=== PATIENT | male | born 1950 | race Caucasian/White ===

== ENCOUNTER → 2017-12-07 08:42 | Outpatient (CLI) | payer MEDICARE, OTHER, SELFPAY ==
[2017-12-07 10:50] LABS: ALB/GLOB Ratio 1.2 RATIO (0.9-2.4); AST(SGOT) 27 U/L (15-37); Alanine Aminotransfer ALT/SGPT 40 U/L (16-61); Alkaline Phosphatase 43 U/L (45-117); Anion Gap 10 (5-15); BUN 17 mg/dL (7-18); BUN/Creat Ratio 17.6 RATIO (10-20); Calcium,Total 8.9 mg/dL (8.5-10.1); Chloride 107 mmol/L (98-107); Cholesterol 184 mg/dL (200); Creatinine, Serum 0.97 mg/dL (0.70-1.30); EST Glomerular Filtration Rate 82 mL/min (>60); Est Glom Filt Rate - Afr Amer 99 mL/min (>60); Globulin 3.4 g/dL (2.2-4.2); Glucose 119 mg/dL (74-106); High Density Lipoprotein 45 mg/dL; Potassium 4.2 mmol/L (3.5-5.1); Protein, Total 7.4 g/dL (6.4-8.2); Sodium Level 140 mmol/L (136-145); Thyroid Stim Hormone (TSH) 1.71 uIU/mL (0.358-3.74); Triglycerides 165 mg/dL; Very Low Density Lipoprotein 33 mg/dL (5-40)
== END ==
PROVIDERS: Family Provider Family Medicine; PCP Family Medicine; Visit Provider Family Medicine
DX: E11.9 Type 2 diabetes mellitus without complications (principal)
CPT/HCPCS: 36415; 80053; 80061; 84443

== ENCOUNTER → 2018-06-05 09:17 | Outpatient (CLI) | payer MEDICARE, OTHER, SELFPAY ==
[2018-05-22 15:33] VITALS: BMI 29.2
--- NOTE | 2018-06-05 09:20 | STE_ITS ---
Reason For Study: CAD/ASHD Stress Results Protocol: Dobutamine Stress Echocardiogram Maximum Predicted HR: 150 bpm Target HR: 128 bpm % Maximum Predicted HR: 93 % DurationHeart Rate Stage (mm:ss) (bpm) BP BASELINE 57 142/78 GRAHAM PROTOCOL- STAGE 1 3:00 94 140/80 GRAHAM PROTOCOL- STAGE 2 3:00 116 150/80 GRAHAM PROTOCOL- STAGE 3 3:00 130 168/90 GRAHAM PROTOCOL- STAGE 4 1:00 139 / RECOVERY 76 142/84 Stress Duration: 10:00 mm:ss Maximum Stress HR: 139 bpm Baseline Echocardiogram Findings The estimated ejection fraction is 65 %. Stress Echo Wall motion Data Resting WM Intermediate WM Stress WM Resting Wall Motion Wall Motion Stress No regional wall motion No regional wall motion abnormalities noted. abnormalities noted. EKG Data The baseline ECG displays normal sinus rhythm. The patient exercised according to the regular Graham protocol for a total duration of 10:00. The maximum heart rate attained was 139 beats per minute. This was 92% of maximum predicted heart rate. The patient exercised into stage 4 of the Graham protocol. During stress, there were no ST or T wave changes noted to suggest ischemia. No clinical angina was noted. Interpretation Summary The estimated ejection fraction is 65 %. Normal, adequate, treadmill echocardiogram. Negative for ischemia by EKG and echocardiographic criteria. No anginal symptoms noted. No arrhythmias noted. Appropriate blood pressure response to exercise. Average exercise capacity for age. Final LVEF is 75%. Test terminated due to target heart rate achieved. No complications. Ordering Physician: Demetri Patrick Referring Physician: Demetri Patrick Performed By: Don Bourgeois RCS
== END ==
PROVIDERS: Family Provider Family Medicine; PCP Family Medicine; Referring Provider Internal Medicine Cardiovascular Disease; Visit Provider Internal Medicine Cardiovascular Disease
DX: E78.5 Hyperlipidemia, unspecified (principal); I10 Essential (primary) hypertension; I25.10 Atherosclerotic heart disease of native coronary artery without angina pectoris; I25.2 Old myocardial infarction; Z95.5 Presence of coronary angioplasty implant and graft
CPT/HCPCS: 93017; 93350

== ENCOUNTER 2019-06-24 09:00 | Outpatient (RCR) | payer MEDICARE, OTHER, SELFPAY ==
[2018-12-27 16:03] VITALS: BMI 26.4
--- NOTE | 2019-04-01 14:29 | HP.PTEVAL_ITS ---
Patient's Visit Information MARIA E GUTHRIE is a 68 year old M referred to Physical Therapy by Seven Vo DO with a diagnosis of L TKA. Date of Evaluation: 03/22/19 Physical Therapist: Cesar Holloway DPT - Visit Plan Frequency: 3x /Week Duration: 4-6 Weeks Plan: Start with ROM, focus on gaining TKE and atleast 120deg of flexion. May add in gentle strengthening, but due to history of difficulty gaining ROM, must focus on this. Instruct patient in progression of CPM by 5 deg daily. - Subjective Findings: Pt. is here today for his initial evaluation S/P L TKA. DOS: 03/20/19. Pt. arrives today with FWW. 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 Pt. reports having to have a GARY after his last surgery. Pt. reports he is taking pain medication as prescribed. He has not started any exercises, but reprots using his CPM. Pt. is currently at 0-0-70deg on his CPM. Pt. reports using 4 hours daily. Pt. is to see physician in 3 weeks. Pt. denies N/T. Pt. has aquacell bandage on currently. He is to contact physican about when to remove. He enjoys gardening, working outside and walking. Pt. is hopeful to resume all of these activities without limitations. - Pain Left Knee Pain Intensity (Out of 10): Unrated Pain Intensity Range: 4, 9 - Objective POSTURE: Pt. lacks TKE in stance. Pt. has increased R sided wt. shift. Pt. is able to sit at edge of the bed without increase in symptoms. PALPATION: Pt. has nor signs of infection. Pt. does have aquacell bandage on and is to leave on until next week. Pt. has negative homans sign. NEURO: normal sensation noted througout BLEs. ROM: R knee 0-0-118deg. L knee 0-10-90deg. Pt. has icnreased pain at end ranges of motion, empty end feel noted. MMT: LLE- ankle 5/5 throughout; knee- ext 3-/5, fleixon 3/5; hip- flexion 3-/5, abd 3/5; ext 3/5. GAIT: Pt. ambulates with FWW, but lacks TKE on LLE during stance phase. Pt. has minimal swing phase as well. STAIRS: step to pattern noted. use of BHR (heavy use). - Goals Goal 1:: Pt. to be I with HEP. Goal Time Frame: 4-6 Weeks Goal 2:: Pt. to have increaed L knee ROM to 0-0-120deg. Goal Time Frame: 4-6 Weeks Goal 3:: Pt. to ambulate with LRD with normal pattern with 0-1/10 pain in L knee Goal Time Frame: 4-6 Weeks Goal 4:: Pt. to sleep throughout the night with 0-1/10 pain in L knee. Goal Time Frame: 4-6 Weeks Goal 5:: Pt. to have increased strength of LLE by 1/2 grade of all effected musculature. Goal Time Frame: 4-6 Weeks - Rehabilitation Potential Physical Therapy Diagnosis: Pt. has has signs and symptoms consistent with L TKA. Pt. has subsequent hypomobility, increased pain, weakness and difficulty with gait. Pt. would benefit from PT to address above limitations progressing back to all functional mobility. Rehabilitation Potential: Excellent - Anticipated Interventions Patient/Client Instruction: Educate patient on: Condition, Plan of Care, Risk Factors, Benefits of Fitness Program For the Purpose of:: To foster healthy habits, To improve decision making, To facilitate caregiver knowledge, To improve self management, To prevent re- injury, To improve ability to perform tasks related to life management, To improve tolerance to ADL's Therapeutic Exercise to Include: Strength training, Power training, Postural training, Flexibilty training, Passive ROM, Active ROM For the Purpose of:: To decrease pain, To decrease swelling/inflammation, To increase ROM, To increase oxygenation perfusion, To improve muscle performance and motor function, To decrease level of supervision to perform tasks, To improve ability of physical actions for home/community/work/leisure, To improve gait and locomotor functions, To improve health of tissue, To decrease soft tissue restriction, To increase flexibility/ROM, To improve balance Manual Therapy Techniques to Include: Mobilization, Passive ROM, Soft tissue mobilization For the Purpose of:: To decrease pain, To increase ROM, To improve nutrient delivery to tissue, To increase oxygenation perfusion, To improve muscle performance and motor function Thank you for the opportunity to evaluate your patient. For Medicare and Medicare HMO plans, please review the plan of care and approve it. It will need to be FAXED BACK to us at [phone] for Medicare purposes. For Medicare only, by signing this I certify the plan of care. Please let me know if there are questions or concerns regarding this plan of car e. Physician Signature: Date:
--- NOTE | 2019-04-11 11:18 | HP.PTREVAL_ITS ---
Seven Vo, DO, It has been my pleasure to treat MARIA E GUTHRIE over the last 9 visits for L TKA. Please see the progress note below for an update on the physical therapy plan of care! Subjective: Pt. reports doing okay. He reports being on CPM 6 hours per day set at 5-0-110deg. Pt. reports having 4/10 pain pre treatment. He arrived today usi ng single point cane. Objective/Function: AROM: 0-10-90deg, PROM 0-6-94deg. MMT 4/5 throughout. GAIT: Pt. arrived walke with SPC. PT. lacks TKE in stance and has decreased knee flexion during swing phase. Pt. has improvement with VCing. PT. is able to negotiate 6 steps with BUE use. I disscussed with him about consistent stretching at home. Pt. agrees. I want him stretch 3-5 times per day, pt. reports understanding. Plan Plan: Cont with POC, focus on end range stretching both directions and functional mobility. Progress gait with SPC. Goals Goal 1:: Pt. to be I with HEP. Goal Time Frame: 4-6 Weeks Goal Progress: Progressing Goal 2:: Pt. to have increaed L knee ROM to 0-0-120deg. Goal Time Frame: 4-6 Weeks Goal Progress: Progressing Goal 3:: Pt. to ambulate with LRD with normal pattern with 0-1/10 pain in L knee Goal Time Frame: 4-6 Weeks Goal Progress: Progressing Goal 4:: Pt. to sleep throughout the night with 0-1/10 pain in L knee. Goal Time Frame: 4-6 Weeks Goal Progress: Progressing Goal 5:: Pt. to have increased strength of LLE by 1/2 grade of all effected musculature. Goal Time Frame: 4-6 Weeks Goal Progress: Progressing Anticipated Interventions Patient/Client Instruction: Educate patient on: Condition, Plan of Care, Risk Factors, Benefits of Fitness Program For the Purpose of:: To foster healthy habits, To improve decision making, To facilitate caregiver knowledge, To improve self management, To prevent re- injury, To improve ability to perform tasks related to life management, To improve tolerance to ADL's Therapeutic Exercise to Include: Strength training, Power training, Postural training, Flexibilty training, Passive ROM, Active ROM For the Purpose of:: To decrease pain, To decrease swelling/inflammation, To increase ROM, To increase oxygenation perfusion, To improve muscle performance and motor function, To decrease level of supervision to perform tasks, To improve ability of physical actions for home/community/work/leisure, To improve gait and locomotor functions, To improve health of tissue, To decrease soft tissue restriction, To increase flexibility/ROM, To improve balance Manual Therapy Techniques to Include: Mobilization, Passive ROM, Soft tissue mobilization For the Purpose of:: To decrease pain, To increase ROM, To improve nutrient delivery to tissue, To increase oxygenation perfusion, To improve muscle performance and motor function Please do not hesitate to contact me at [phone] by phone or if you have questions or concerns regarding this new plan of care! Sincerely, ESTRADA WilliamT
--- NOTE | 2019-05-01 10:55 | HP.PTREVAL_ITS ---
Seven Vo, DO, It has been my pleasure to treat MARIA E GUTHRIE over the last 16 visits for L TKA. Please see the progress note below for an update on the physical therapy plan of care! Subjective: Pt. reports I am doing okay today. He reports I have resigned myself to getting a manipulation.' Pt. reports having less pain today, but is s till having trouble bending his knee. 2/10 pain pre treatment today. Objective/Function: Pt. contiunes to have increased pain in his L knee, marked edema in joint only. Pt. is able to walk with cane, but has limited knee flexion and lacks TKE. Pt. does not tolerate end ranges of motion stretching well. He complains of high levels of pain with both knee flexion and extension. ROM: 0-6-84 PROM, pt. did not tolerate higher levels of force with stretching. Pt. is able to ascend steps with 2 HR, but difficult with reciprocal pattern, unable to effectively descending with reciprocal pattern. I talked to him frequently about continued stretching at home, which he states that he is compliant. He was to be stretching continously throughout the day. Pt. is to follow up with physician next week. Plan Plan: Pt. really needs to work on more ROM. He needs to achieve TKE and further knee flexion. I instructed him on frequency and urgency to increase stretching/ROM. Goals Goal 1:: Pt. to be I with HEP. Goal Time Frame: 4-6 Weeks Goal Progress: Progressing Goal 2:: Pt. to have increaed L knee ROM to 0-0-120deg. Goal Time Frame: 4-6 Weeks Goal Progress: Not Progressing Goal 3:: Pt. to ambulate with LRD with normal pattern with 0-1/10 pain in L knee Goal Time Frame: 4-6 Weeks Goal Progress: Progressing Goal 4:: Pt. to sleep throughout the night with 0-1/10 pain in L knee. Goal Time Frame: 4-6 Weeks Goal Progress: Progressing Goal 5:: Pt. to have increased strength of LLE by 1/2 grade of all effected musculature. Goal Time Frame: 4-6 Weeks Goal Progress: Progressing Anticipated Interventions Patient/Client Instruction: Educate patient on: Condition, Plan of Care, Risk Factors, Benefits of Fitness Program For the Purpose of:: To foster healthy habits, To improve decision making, To facilitate caregiver knowledge, To improve self management, To prevent re- injury, To improve ability to perform tasks related to life management, To improve tolerance to ADL's Therapeutic Exercise to Include: Strength training, Power training, Postural training, Flexibilty training, Passive ROM, Active ROM For the Purpose of:: To decrease pain, To decrease swelling/inflammation, To increase ROM, To increase oxygenation perfusion, To improve muscle performance and motor function, To decrease level of supervision to perform tasks, To improve ability of physical actions for home/community/work/leisure, To improve gait and locomotor functions, To improve health of tissue, To decrease soft tissue restriction, To increase flexibility/ROM, To improve balance Manual Therapy Techniques to Include: Mobilization, Passive ROM, Soft tissue mobilization For the Purpose of:: To decrease pain, To increase ROM, To improve nutrient delivery to tissue, To increase oxygenation perfusion, To improve muscle performance and motor function Please do not hesitate to contact me at [phone] by phone or if you have questions or concerns regarding this new plan of care! Sincerely, Cesar Holloway DPT
--- NOTE | 2019-05-21 11:02 | HP.PTREVAL_ITS ---
Seven Vo, DO, It has been my pleasure to treat MARIA E GUTHRIE over the last 32 visits for L TKA. Please see the progress note below for an update on the physical therapy plan of care! Subjective: Pt. reports I was so sore yesterday. He reports calling his doctor who placed him on an alternate anti inflammatory to work on reducing scar tisue formation. He is also getting use of a new CPM. Pt. reports beign sore currently as well. Objective/Function: Pt. achieved 93deg of flexion today, Pt. has very painfull with attempted. I took him as far as he could tolerate. Pt. requested to stop at times. Pt. contiunes to have thick tissue surrounding his knee. Pt. reports high levels of pain at media joint line and lateral quad musculature. I talked to him about frequent aggressive stretching at home as well. Pt. cosnents. Pt. to add CPM to his routine once he gets it. Plan Plan: Cont. with POC, progress ROM Goals Goal 1:: Pt. to be I with HEP. Goal Time Frame: 4-6 Weeks Goal Progress: Progressing Goal 2:: Pt. to have increaed L knee ROM to 0-0-120deg. Goal Time Frame: 4-6 Weeks Goal Progress: Not Progressing Goal 3:: Pt. to ambulate with LRD with normal pattern with 0-1/10 pain in L knee Goal Time Frame: 4-6 Weeks Goal Progress: Progressing Goal 4:: Pt. to sleep throughout the night with 0-1/10 pain in L knee. Goal Time Frame: 4-6 Weeks Goal Progress: Progressing Goal 5:: Pt. to have increased strength of LLE by 1/2 grade of all effected musculature. Goal Time Frame: 4-6 Weeks Goal Progress: Progressing Anticipated Interventions Patient/Client Instruction: Educate patient on: Condition, Plan of Care, Risk Factors, Benefits of Fitness Program For the Purpose of:: To foster healthy habits, To improve decision making, To facilitate caregiver knowledge, To improve self management, To prevent re-injury, To improve ability to perform tasks related to life management, To improve tolerance to ADL's Therapeutic Exercise to Include: Strength training, Power training, Postural tra ining, Flexibilty training, Passive ROM, Active ROM For the Purpose of:: To decrease pain, To decrease swelling/inflammation, To increase ROM, To increase oxygenation perfusion, To improve muscle performance and motor function, To decrease level of supervision to perform tasks, To improve ability of physical actions for home/community/work/leisure, To improve gait and locomotor functions, To improve health of tissue, To decrease soft tissue restriction, To increase flexibility/ROM, To improve balance Manual Therapy Techniques to Include: Mobilization, Passive ROM, Soft tissue mobilization For the Purpose of:: To decrease pain, To increase ROM, To improve nutrient delivery to tissue, To increase oxygenation perfusion, To improve muscle performance and motor function Please do not hesitate to contact me at [phone] by phone or if you have questions or concerns regarding this new plan of care! Sincerely, Cesar Holloway DPT
--- NOTE | 2019-05-27 09:52 | HP.PTREVAL_ITS ---
Seven Vo, DO, It has been my pleasure to treat MARIA E GUTHRIE over the last 36 visits for L TKA. Please see the progress note below for an update on the physical therapy plan of care! Subjective: Pt. reports I am feeling a little better today, 05/27. Pt. reprots beign HEP compliant and on CPM 8-10 hours per day. Pt. feels like over the past few days he is doin gbetter, but still not where he should be. Objective/Function: ROM: seated 0-0-96deg very painful with flexion. Supine 0 deg of extension after frequent stretching. Pt. reports pain and tightness as limiting factor. Pt. reports being compliant, but still have a tough time with progressing ROM. Pt. is to see physician later this date. I talked to him about concerned about ROM. Pt. reprots understanding. Plan Plan: Cont. with POC, progress ROM Goals Goal 1:: Pt. to be I with HEP. Goal Time Frame: 4-6 Weeks Goal Progress: Progressing Goal 2:: Pt. to have increaed L knee ROM to 0-0-120deg. Goal Time Frame: 4-6 Weeks Goal Progress: Not Progressing Goal 3:: Pt. to ambulate with LRD with normal pattern with 0-1/10 pain in L knee Goal Time Frame: 4-6 Weeks Goal Progress: Progressing Goal 4:: Pt. to sleep throughout the night with 0-1/10 pain in L knee. Goal Time Frame: 4-6 Weeks Goal Progress: Progressing Goal 5:: Pt. to have increased strength of LLE by 1/2 grade of all effected musculature. Goal Time Frame: 4-6 Weeks Goal Progress: Progressing Anticipated Interventions Patient/Client Instruction: Educate patient on: Condition, Plan of Care, Risk Factors, Benefits of Fitness Program For the Purpose of:: To foster healthy habits, To improve decision making, To facilitate caregiver knowledge, To improve self management, To prevent re- injury, To improve ability to perform tasks related to life management, To improve tolerance to ADL's Therapeutic Exercise to Include: Strength training, Power training, Postural training, Flexibilty training, Passive ROM, Active ROM For the Purpose of:: To decrease pain, To decrease swelling/inflammation, To increase ROM, To increase oxygenation perfusion, To improve muscle performance and motor function, To decrease level of supervision to perform tasks, To improve ability of physical actions for home/community/work/leisure, To improve gait and locomotor functions, To improve health of tissue, To decrease soft tissue restriction, To increase flexibility/ROM, To improve balance Manual Therapy Techniques to Include: Mobilization, Passive ROM, Soft tissue mobilization For the Purpose of:: To decrease pain, To increase ROM, To improve nutrient delivery to tissue, To increase oxygenation perfusion, To improve muscle performance and motor function Please do not hesitate to contact me at [phone] by phone or if you have questions or concerns regarding this new plan of care! Sincerely, Cesar Holloway DPT
--- NOTE | 2019-06-10 09:21 | HP.PTREVAL_ITS ---
Seven Vo, DO, It has been my pleasure to treat MARIA E GUTHRIE over the last 40 visits for L TKA. Please see the progress note below for an update on the physical therapy plan of care! Subjective: Pt. reports I had a good stretch last time. Pt. reports I feel like I am slowly getting better. Pt. arrived today without cane. Pt. reports 1/ 10 pain and has gone off of his pain medications. Objective/Function: ROM: PROM- 0-0-101 deg. AROM 0-0-96deg. Pt. cotninues to have leather end feel, but is slwoly progressing. Much more tolerant of stretching in sitting. Pt. is sleeping better. Pt. contiunse to have increased pain. GAIT: Pt. has difficulty with TKE during stance phase,but is progressing. We have been working on increasing knee fleixon druing swing phase. STIARS: reciprocal pattern with BHR, but has difficulty with bending his L knee with lowering. Plan Plan: COnt. with PT focus knee flexon and maintainingh knee extension, progressing functional mobility as tolerated. FOCUS on aggressive knee flexion ROM. Goals Goal 1:: Pt. to be I with HEP. Goal Time Frame: 4-6 Weeks Goal Progress: Progressing Goal 2:: Pt. to have increaed L knee ROM to 0-0-120deg. Goal Time Frame: 4-6 Weeks Goal Progress: Progressing Goal 3:: Pt. to ambulate with LRD with normal pattern with 0-1/10 pain in L knee Goal Time Frame: 4-6 Weeks Goal Progress: Progressing Goal 4:: Pt. to sleep throughout the night with 0-1/10 pain in L knee. Goal Time Frame: 4-6 Weeks Goal Progress: Progressing Goal 5:: Pt. to have increased strength of LLE by 1/2 grade of all effected musculature. Goal Time Frame: 4-6 Weeks Goal Progress: Progressing Anticipated Interventions Patient/Client Instruction: Educate patient on: Condition, Plan of Care, Risk Factors, Benefits of Fitness Program For the Purpose of:: To foster healthy habits, To improve decision making, To facilitate caregiver knowledge, To improve self management, To prevent re- injury, To improve ability to perform tasks related to life management, To improve tolerance to ADL's Therapeutic Exercise to Include: Strength training, Power training, Postural training, Flexibilty training, Passive ROM, Active ROM For the Purpose of:: To decrease pain, To decrease swelling/inflammation, To increase ROM, To increase oxygenation perfusion, To improve muscle performance and motor function, To decrease level of supervision to perform tasks, To improve ability of physical actions for home/community/work/leisure, To improve gait and locomotor functions, To improve health of tissue, To decrease soft tissue restriction, To increase flexibility/ROM, To improve balance Manual Therapy Techniques to Include: Mobilization, Passive ROM, Soft tissue mobilization For the Purpose of:: To decrease pain, To increase ROM, To improve nutrient delivery to tissue, To increase oxygenation perfusion, To improve muscle performance and motor function Please do not hesitate to contact me at [phone] by phone or if you have questions or concerns regarding this new plan of care! Sincerely, ESTRADA WilliamT
--- NOTE | 2019-08-23 10:34 | HP.PTDCNRP_ITS ---
MARIA E GUTHRIE was seen in my office for initial evaluation on 03/22/19. The following Plan of Care was established for this patient: Initial Frequency: 3x /Week Initial Duration: 4-6 Weeks Patient/Client Instruction: Educate patient on: Condition, Plan of Care, Risk Factors, Benefits of Fitness Program For the Purpose of:: To foster healthy habits, To improve decision making, To facilitate caregiver knowledge, To improve self management, To prevent re- injury, To improve ability to perform tasks related to life management, To improve tolerance to ADL's Therapeutic Exercise to Include: Strength training, Power training, Postural training, Flexibilty training, Passive ROM, Active ROM For the Purpose of:: To decrease pain, To decrease swelling/inflammation, To increase ROM, To increase oxygenation perfusion, To improve muscle performance and motor function, To decrease level of supervision to perform tasks, To improve ability of physical actions for home/community/work/leisure, To improve gait and locomotor functions, To improve health of tissue, To decrease soft tissue restriction, To increase flexibility/ROM, To improve balance Manual Therapy Techniques to Include: Mobilization, Passive ROM, Soft tissue mobilization For the Purpose of:: To decrease pain, To increase ROM, To improve nutrient delivery to tissue, To increase oxygenation perfusion, To improve muscle performance and motor function This patient was last seen in our office 06/26/19. Pertinent comments regarding their Physical therapy will appear below: Pt. was seen post opt TKA. Pt. had a difficult time regaining his ROM. Pt. has worked very hard at returning. Pt. was to take a break from PT and follow up if needed. Pt. has not been seen in several weeks and willbe DC from PT at this point intime. At this point I will be discontinuing this patient from physical therapy. I would be happy to see this patient again in the future if found appropriate by the physician. Thank you! ESTRADA WilliamT
== END 2019-06-24 19:00 | disposition home or self-care (01) ==
LOC: PT 09:00
PROVIDERS: Family Provider Family Medicine; PCP Family Medicine; Referring Provider Orthopaedic Surgery; Visit Provider Orthopaedic Surgery
DX: M17.12 Unilateral primary osteoarthritis, left knee (principal); M21.162 Varus deformity, not elsewhere classified, left knee; M25.562 Pain in left knee; Z47.89 Encounter for other orthopedic aftercare; M24.662 Ankylosis, left knee
CPT/HCPCS: 97016; 97110; 97140; 97161; 97164

== ENCOUNTER → 2019-11-15 17:29 | Outpatient (CLI) | payer MEDICARE, OTHER, SELFPAY ==
[2019-06-27 14:41] VITALS: BMI 27.1
== END ==
PROVIDERS: PCP Family Medicine; Referring Provider Family Medicine; Visit Provider Family Medicine
DX: Z20.828 Contact with and (suspected) exposure to other viral communicable diseases (principal)
CPT/HCPCS: 87635; U0003

== ENCOUNTER → 2019-12-27 09:35 | Outpatient (CLI) | payer MEDICARE, OTHER, SELFPAY ==
[2019-06-27 14:41] VITALS: BMI 27.1
[2019-12-27 12:53] LABS: Hematocrit 50.2 % (40-54); Hemoglobin 16.3 g/dL (13.0-16.5); Mean Corp Hgb Conc 32.5 g/dL (32-36); Mean Corpuscular Hgb 28.8 pg (27.0-32.0); Mean Corpuscular Volume 88.8 fL (80-94); Mean Platelet Vol. 11.3 fl (6.2-12.0); Platelet Count 214 K/mm3 (150-450); RBC Distribution Width CV 13.4 % (11.6-14.6); RBC Distribution Width SD 43.2 fl (35.1-43.9); Red Blood Count 5.65 M/mm3 (4.6-6.2); White Blood Count 3.9 K/mm3 (4.4-11.0)
[2019-12-27 13:40] LABS: ALB/GLOB Ratio 1.3 RATIO (0.9-2.4); AST(SGOT) 22 U/L (15-37); Alanine Aminotransfer ALT/SGPT 28 U/L (16-61); Albumin, Serum 4.2 g/dL (3.2-5.0); Alkaline Phosphatase 52 U/L (45-117); Anion Gap 7 (5-15); BUN 19 mg/dL (7-18); BUN/Creat Ratio 19.5 RATIO (10-20); Calcium,Total 9.3 mg/dL (8.5-10.1); Chloride 105 mmol/L (98-107); Cholesterol 190 mg/dL (200); Creatinine, Serum 0.97 mg/dL (0.70-1.30); EST Glomerular Filtration Rate 81 mL/min (>60); Est Glom Filt Rate - Afr Amer 98 mL/min (>60); Globulin 3.2 g/dL (2.2-4.2); Glucose 117 mg/dL (74-106); High Density Lipoprotein 46 mg/dL; Potassium 4.4 mmol/L (3.5-5.1); Protein, Total 7.4 g/dL (6.4-8.2); Sodium Level 137 mmol/L (136-145); Thyroid Stim Hormone (TSH) 1.39 uIU/mL (0.358-3.74); Triglycerides 123 mg/dL; Very Low Density Lipoprotein 25 mg/dL (5-40)
== END ==
PROVIDERS: PCP Family Medicine; Referring Provider Family Medicine; Visit Provider Family Medicine
DX: I25.10 Atherosclerotic heart disease of native coronary artery without angina pectoris (principal); I10 Essential (primary) hypertension
CPT/HCPCS: 36415; 80053; 80061; 84443; 85027

== ENCOUNTER → 2020-03-02 11:40 | Outpatient (CLI) | payer MEDICARE, OTHER, SELFPAY ==
[2020-01-21 14:49] VITALS: BMI 28.4
== END ==
PROVIDERS: PCP Family Medicine; Visit Provider Family Medicine
DX: U07.1 COVID-19 (principal)
CPT/HCPCS: 87635; U0003

== ENCOUNTER 2020-06-15 17:31 | Outpatient (RCR) | payer MEDICARE, OTHER, SELFPAY ==
[2020-01-21 14:49] VITALS: BMI 28.4
== END 2020-06-15 23:59 ==
LOC: IMMUN 17:31
PROVIDERS: PCP Family Medicine; Referring Provider Family Medicine; Visit Provider Family Medicine
DX: Z23 Encounter for immunization (principal)
CPT/HCPCS: 0011A; 0012A

== ENCOUNTER → 2020-06-19 09:15 | Outpatient (CLI) | payer MEDICARE, OTHER, SELFPAY ==
[2020-01-21 14:49] VITALS: BMI 28.4
[2020-06-19 09:54] LABS: Hematocrit 52.3 % (40-54); Hemoglobin 16.5 g/dL (13.0-16.5); Mean Corp Hgb Conc 31.5 g/dL (32-36); Mean Corpuscular Volume 88.6 fL (80-94); Mean Platelet Vol. 10.5 fl (6.2-12.0); Platelet Count 202 K/mm3 (150-450); RBC Distribution Width CV 13.2 % (11.6-14.6); RBC Distribution Width SD 42.5 fl (35.1-43.9); White Blood Count 3.2 K/mm3 (4.4-11.0)
[2020-06-19 10:38] LABS: ALB/GLOB Ratio 1.2 RATIO (0.9-2.4); AST(SGOT) 32 U/L (15-37); Alanine Aminotransfer ALT/SGPT 40 U/L (16-61); Albumin, Serum 4.1 g/dL (3.2-5.0); Alkaline Phosphatase 52 U/L (45-117); Anion Gap 6 (5-15); BUN 16 mg/dL (7-18); BUN/Creat Ratio 14.7 RATIO (10-20); Calcium,Total 9.4 mg/dL (8.5-10.1); Chloride 106 mmol/L (98-107); Cholesterol 203 mg/dL (200); Creatinine, Serum 1.09 mg/dL (0.70-1.30); EST Glomerular Filtration Rate 71 mL/min (>60); Est Glom Filt Rate - Afr Amer 86 mL/min (>60); Globulin 3.3 g/dL (2.2-4.2); Glucose 118 mg/dL (74-106); High Density Lipoprotein 48 mg/dL; PSA,Total - Annual Screen 1.74 ng/mL (0.00-4.00); Potassium 4.5 mmol/L (3.5-5.1); Protein, Total 7.4 g/dL (6.4-8.2); Sodium Level 139 mmol/L (136-145); Triglycerides 178 mg/dL; Very Low Density Lipoprotein 36 mg/dL (5-40)
== END ==
PROVIDERS: PCP Family Medicine; Referring Provider Family Medicine; Visit Provider Family Medicine
DX: E11.9 Type 2 diabetes mellitus without complications (principal); I25.10 Atherosclerotic heart disease of native coronary artery without angina pectoris; Z12.5 Encounter for screening for malignant neoplasm of prostate
CPT/HCPCS: 36415; 80053; 80061; 84153; 85027; G0103

== ENCOUNTER → 2020-09-16 16:26 | Outpatient (CLI) | payer MEDICARE, OTHER, SELFPAY ==
[2020-01-21 14:49] VITALS: BMI 28.4
--- NOTE | 2020-09-16 16:49 | RAD_ITS ---
STUDY: X-RAY - RIGHT SHOULDER REASON FOR EXAM: Male, 70 years old. ROTATOR CUFF STRAIN TECHNIQUE: 4 view(s) of the shoulder. COMPARISON: Chest x-ray dated December 29, 2049 FINDINGS: There is moderate degenerative arthrosis of the glenohumeral articulation. Normal acromioclavicular joint. Normal acromion. Suture anchors are present in the humeral head. Normal humeral head and visualized proximal humerus. The soft tissue structures are unremarkable. Normal visualized pulmonary apex. RAD/Shoulder min 2 Views IMPRESSION: Moderate DJD of the shoulder joint Electronically Signed: David Hamm MD at 23:56 EDT , Service support ,
== END ==
PROVIDERS: PCP Family Medicine; Referring Provider Family Medicine; Visit Provider Family Medicine
DX: S46.011S Strain of muscle(s) and tendon(s) of the rotator cuff of right shoulder, sequela (principal)
CPT/HCPCS: 73030

== ENCOUNTER → 2021-02-02 13:46 | Outpatient (CLI) | payer MEDICARE, OTHER, SELFPAY ==
--- NOTE | 2021-02-02 13:50 | ECHOD_ITS ---
Reason For Study: CARDIAC MURMUR Procedure This was a 2D Doppler, Color Flow transthoracic echocardiogram. Exam performed in department. Left Ventricle Normal LV size. Left ventricular systolic function is normal. The estimated ejection fraction is 60 %. Stage 1 diastolic dysfunction. No regional wall motion abnormalities noted. Right Ventricle Normal RV size. Normal systolic function. Atria Normal left atrium. Normal right atrium. Mitral Valve Normal mitral valve. Tricuspid Valve Normal tricuspid valve. Aortic Valve Trisinus/trileaflet aortic valve. Mild (1+) aortic valve insufficiency. Pulmonic Valve Normal pulmonic valve. Great Vessels Normal aortic root. The pulmonary artery is normal size. Normal inferior vena cava. Pericardium/Pleural No pericardial effusion. MMode/2D Measurements & Calculations LVIDd: 4.8 cm IVSd: 0.97 cm LVOT diam: 2.0 cm LVIDs: 3.1 cm LVPWd: 1.0 cm LVOT area: 3.0 cm2 RVDd: 3.8 cm FS: 34.9 % Ao root diam: 3.3 cm LAV(MOD-bp): 35.0 ml LVAd ap4: 35.1 cm2 LAV(MOD-bp) Indexed: 16.2 ml/m2 LVLd ap4: 8.5 cm LAV(MOD-sp2): 33.1 ml EDV(MOD-sp4): 118.3 ml LAV(MOD-sp4): 33.4 ml EDV(sp4-el): 122.8 ml LVAs ap4: 19.0 cm2 LVLs ap4: 6.8 cm ESV(MOD-sp4): 45.9 ml ESV(sp4-el): 45.3 ml EF(MOD-sp4): 61.2 % EF(sp4-el): 63.1 % SV(MOD-sp4): 72.4 ml SV(sp4-el): 77.5 ml LA A4 area: 13.7 cm2 LA dimension(2D): 3.7 cm RA A4 area: 12.4 cm2 Time Measurements MV dec time: 0.26 sec Doppler Measurements & Calculations MV E max zaheer: 75.9 cm/sec Lat Peak E' Zaheer: 8.0 cm/sec Med Peak E' Zaheer: 6.5 cm/sec MV A max zaheer: 94.8 cm/sec E/E' lat: 9.5 E/E' med: 11.7 MV E/A: 0.80 Ao V2 max: 211.6 cm/sec LV V1 max: 122.0 cm/sec PA V2 max: 73.6 cm/sec Ao max P.9 mmHg LV V1 max P.0 mmHg RISA(V,D): 1.8 cm2 TR max zaheer: 232.2 cm/sec TR max P.6 mmHg ECHO/Echo Complete Interpretation Summary Normal LV size. Left ventricular systolic function is normal. The estimated ejection fraction is 60 %. Stage 1 diastolic dysfunction. Ordering Physician: Bill Murdock/Nathan Purcell Referring Physician: GLENN HSU Performed By: Zofia Alvarado RDCS
== END ==
PROVIDERS: PCP Family Medicine; Referring Provider Nurse Practitioner Gerontology; Visit Provider Nurse Practitioner Gerontology
DX: R00.1 Bradycardia, unspecified (principal); R01.1 Cardiac murmur, unspecified
CPT/HCPCS: 93306

== ENCOUNTER → 2022-05-17 | Outpatient (CLI) | payer MEDICARE, OTHER, SELFPAY ==
--- NOTE | 2022-05-17 12:59 | CDU_ITS ---
Reason For Study: Abnormal blood flow screening Rt. Velocities/BP Lt. Velocities/BP Prox CCA 67.4/11.6 cm/sec. Prox CCA 83.4/7.8 cm/sec. Mid CCA 65.5/15..4 cm/sec. Mid CCA 71.1/15.4 cm/sec. Dist CCA 57/12.6 cm/sec. Dist CCA 52.2/10.7 cm/sec. Prox ICA 36/9.9 cm/sec. Prox ICA 38.1/9.7 cm/sec. Mid ICA 56.9/16.5 cm/sec. Mid ICA 64.5/19.2 cm/sec. Dist ICA 67.4/18.6 cm/sec. Dist ICA 63.6/19.2 cm/sec. Rt. ICA/CCA = 1.03. Lt. ICA/CCA = 0.91. Prox ECA 78.4/9.1 cm/sec. Prox ECA 58.9/6 cm/sec. Rt. Vert. 29.9/9 cm/sec. Lt. Vert. 32.4/9.7 cm/sec. Right Extracranial There is homogeneous, smooth atherosclerotic plaque noted in the right common carotid artery. There is heterogeneous, irregular atherosclerotic plaque noted in the right internal carotid artery. There is intimal thickening but no significant atherosclerotic plaque noted in the right external carotid artery. Antegrade flow is noted in the right vertebral artery. Left Extracranial There is homogeneous, smooth atherosclerotic plaque noted in the left common carotid artery. There is heterogeneous, smooth atherosclerotic plaque noted in the left internal carotid artery. There is intimal thickening but no significant atherosclerotic plaque noted in the left external carotid artery. Antegrade flow is noted in the left vertebral artery. Procedure This is a Carotid Duplex examination using B-mode, color flow and specral Doppler. Carotid Duplex [id number]. Exam performed in department. VL/Carotid Duplex Ultrasound Interpretation Summary Mild (<50%) stenosis right extracranial internal carotid. Mild (<50%) stenosis left extracranial internal carotid. Patent and antegrade vertebrals bilaterally. Ordering Physician: Bill Murdock Referring Physician: Miguelito Saul MD Performed By: Rosaura Green RVT
== END | disposition home or self-care (01) ==
LOC: CVS 12:48
PROVIDERS: PCP Family Medicine; Visit Provider Nurse Practitioner Family
DX: I65.23 Occlusion and stenosis of bilateral carotid arteries (principal); E11.9 Type 2 diabetes mellitus without complications; I25.10 Atherosclerotic heart disease of native coronary artery without angina pectoris; Z95.5 Presence of coronary angioplasty implant and graft; E78.5 Hyperlipidemia, unspecified; I10 Essential (primary) hypertension
CPT/HCPCS: 93880

== ENCOUNTER → 2023-03-14 | Outpatient (CLI) | payer MEDICARE, OTHER, SELFPAY ==
--- NOTE | 2023-03-14 17:44 | STRESSREP_ITS ---
Stress Test Report Exercise myocardial perfusion stress test. 72-year-old man with a history of coronary disease Stress protocol: Resting EKG demonstrates normal sinus rhythm with a rate of 60 bpm resting blood pressure is 138/88 mmHg. The patient exercised according to the regular Yonas protocol for a total duration of 6 minutes and 30 seconds attaining a maximum heart rate of 127 bpm which was 86% of maximum predicted heart rate; the maximum workload was 8.5 METS metabolic equivalents. At rest there were no ST or T wave changes noted to suggest ischemia and at peak exercise upsloping ST changes only were noted which did not meet the criteria for ischemia. No clinical angina was noted the test was terminated due to the target heart rate being achi eved/fatigue. The peak blood pressure was 188/102 mmHg. Rate-pressure product was 22,900. Myocardial perfusion protocol. 14.9 mCi of technetium 99m sestamibi was injected at rest. The patient exer cised according to regular Yonas protocol for total duration of 6 minutes and 37 and at peak exercise 44 point mCi of technetium 99m sestamibi was injected stress images were obtained stress and rest images were reconstructed in comparing the short axis vertical long and horizontal long axis. Gated images were also obtained. Perfusion SPECT analysis: Review of the stress images demonstrate normal uptake of tracer noted in all areas of the myocardium. The resting images similarly demonstrate normal uptake of tracer noted in all areas of the myocardium. No areas of reversibility are noted to suggest ischemia no previous infarct was noted. Gated SPECT analysis: The gated ejection fraction is 66%. Conclusion: Normal exercise myocardial perfusion stress test at a moderate workload Preserved ejection fraction.
== END | disposition home or self-care (01) ==
LOC: CVS 06:11
PROVIDERS: PCP Family Medicine; Referring Provider Internal Medicine Cardiovascular Disease; Visit Provider Internal Medicine Cardiovascular Disease
DX: Z95.5 Presence of coronary angioplasty implant and graft (principal); I25.10 Atherosclerotic heart disease of native coronary artery without angina pectoris
CPT/HCPCS: 78452; 93017; A9500; A4216

== ENCOUNTER 2023-08-17 21:02 | Emergency (ER) | payer OTHER, SELFPAY ==
[2023-08-17 21:03] VITALS: BP 156/92; PULSE 68; RESP 16; TEMP 36.6; O2SAT 99; BMI 27.7
--- NOTE | 2023-08-17 21:45 | EKG12_ITS ---
Test Reason : CP Blood Pressure : / mmHG Vent. Rate : 067 BPM Atrial Rate : 067 BPM P-R Int : 210 ms QRS Dur : 102 ms QT Int : 404 ms P-R-T Axes : 053 -14 006 degrees QTc Int : 426 ms Sinus rhythm with 1st degree A-V block Incomplete right bundle branch block Borderline ECG Confirmed by VALERIY LAZO, DESIRAE ([id number]), news assignment editor NATHALIE CHRISTOPHER ([id number]) on 08/18/2023 10:30:21 AM Referred By: JUWAN Confirmed By:DESIRAE CROOKS MD
--- NOTE | 2023-08-17 21:50 | ED.VIS.CHEST ---
HPI History of Present Illness Chief Complaint: Chest Pain Informant: patient Narrative Narrative: Intermittent chest pain initially started overnight twinges in his left chest. This evening it returned having intermittent symptoms. He had 1 stent placed in 2006. Diabetes hypertension hyperlipidemia. No cardiac dysrhythmia history. On baby aspirin. No cough. He had traveled yesterday 8-hour drive and return. Noticed leg swelling no leg cramping no dyspnea. Prior Similar Symptoms: No CVD Risk Factors: Positive for Hypertension, Diabetes and Hypercholesterolemia PE Risk Factors: Positive for Recent Travel/Surgery [facility] Medical History (Updated 08/18/23 @ 00:[address] 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 Osteoarthritis PTSD (post-traumatic stress disorder) Type 2 diabetes mellitus without complications Home Medications aspirin 81 mg tablet,delayed release 81 mg PO DAILY@0800 06/09/13 [History Last Taken 06/08/13] metoprolol tartrate 25 mg tablet 12.5 mg PO BID 05/10/17 [History Last Taken Unknown] metformin 500 mg tablet 500 mg PO BID 05/11/17 [History Last Taken Unknown] ezetimibe 10 mg tablet 10 mg PO DAILY #180 tabs 10/02/17 [Rx Last Taken Unknown] cholecalciferol (vitamin D3) 25 mcg (1,000 unit) tablet 4,000 unit PO DAILY 01/21/20 [History Last Taken Unknown] cyanocobalamin (vitamin B-12) 1,000 mcg capsule 500 mcg PO DAILY 01/21/20 [History Last Taken Unknown] alirocumab 75 mg/mL subcutaneous pen injector (Praluent Pen) 150 mg subcut Q2W 03/26/21 [History Last Taken Unknown] losartan 100 mg tablet 100 mg PO DAILY 02/08/22 [History Last Taken Unknown] omega 1-tss-vxo-fish oil 300 mg-1,000 mg capsule (Fish Oil) 2 cap PO BID 02/08/22 [History Last Taken Unknown] allopurinol 300 mg tablet 300 mg PO DAILY 02/08/23 [History Last Taken Unknown] hydrochlorothiazide 25 mg tablet 25 mg PO DAILY 02/08/23 [History Last Taken Unknown] Allergy/AdvReac Type Severity Reaction Status Date / Time [id number] Reductase AdvReac Mild myalgias Verified 08/17/23 21:04 Inhibitor [Huuvaah-Huz-Szo Reductase Inhibitor] Family History Brother CAD (coronary artery disease) Hx of CABG Surgical History (Updated 08/18/23 @ 00:[address] Joe Joshua DO) History of coronary artery stent placement (08/17/06) History of left knee replacement (03/20/19) History of left knee surgery History of repair of rotator cuff History of right knee surgery Social History Smoking Status: Never smoker alcohol intake: never substance use type: does not use caffeine: Yes Type: carbonated beverages Number of servings: 1 ROS ROS ED Constitutional Constitutional ED: Denies chills, fever(s) or sweats Eyes Eyes: Denies change in vision ENT ENT ED: Denies dysphagia or sore throat Cardiovascular Cardiovascular: Reports chest pain; Denies leg edema, palpitations or racing heartbeat Respiratory/Chest Respiratory/Chest: Denies cough, dyspnea or dyspnea on exertion Gastrointestinal Gastrointestinal: Denies abdominal pain, diarrhea, nausea or vomiting Genitourinary Genitourinary ED: Denies dysuria, hematuria or urinary frequency Musculoskeletal Musculoskeletal: Denies back pain, extremity pain or neck pain Integumentary Denies rash or wounds Neurologic Neurologic: Denies headache(s), paresthesias or weakness EXAM Physical Exam Const Vital Signs: 08/17/23 21:03 08/17/23 21:53 08/17/23 21:57 Temperature 97.8 F Temperature Source Temporal Pulse Rate 68 Respiratory Rate 16 Respiratory Effort Normal Blood Pressure 156/92 H Blood Pressure Mean 113 Pulse Ox 99 95 Oxygen Delivery Method Room Air Room Air 08/17/23 22:02 08/17/23 23:00 08/18/23 00:00 Temperature Temperature Source Pulse Rate 60 62 59 L Respiratory Rate 22 H 118 H 22 H Respiratory Effort Blood Pressure 156/92 H 138/77 H 145/88 H Blood Pressure Mean 113 97 107 Pulse Ox 95 95 95 Oxygen Delivery Method Room Air Room Air Room Air Positive well nourished and well developed General Appearance ED: well developed and NAD HEENT Reports moist mucous membranes normocephalic and atraumatic Eyes PERRL, EOMs intact bilaterally and conjunctivae normal General Eye ED: Yes normal appearance of both eyes Neck no lymphadenopathy and supple General: Negative for tenderness Chest Wall Chest: Negative for tenderness Resp normal respiratory effort and normal air movement Effort and Inspection: symmetric chest movement; Negative for respiratory distress Cardio regular rate, regular rhythm and no murmurs Peripheral Pulses: pulses 2+ throughout GI normal to inspection, nondistended, normoactive bowel sounds and non-tender Palpation: Negative for guarding or rebound tenderness present Back/Spine no CVA tenderness and no thoracic nor lumbar tenderness Extremity normal to inspection General Extremety ED: Negative for edema or tenderness General Extremity: Negative for edema Neuro oriented x3 and no sensory deficits noted Sensorium / Orientation: awake and alert Skin no rashes or lesions noted and no wounds Heart Score History: Slightly/Non-Suspicious ECG: Normal Age: >/= 65 years Risk Factors: >/= 3 Risk Factors or History of CAD Troponin: </= Normal Limit Score: 4 MDM MDM MDM Narrative Medical decision making narrative: Interventions / MDM: Differential diagnosis: Atypical chest pain, palpitations. Diagnosis considered but do not suspect: ACS however EKG and troponins were negative. Pulmonary embolism with low risk Wells criteria with a negative D-dimer. Pneumothorax with a negative chest x-ray normal breath sounds. My EKG interpretation: Sinus rate 67, no ST changes, T wave version on 3 flattening in aVF. First-degree AV block. Similar findings from 2015. Imaging independently reviewed and interpreted by myself: 2 view chest x-ray atelectasis left lower lobe. No infiltrates. No pneumothorax. External documents reviewed: N/A Test considered but not ordered:N/A ED course: Patient presented intermittent twinges left chest. 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 Cardiac workup initiated will place a D-dimer due to his recent travel yesterday. 2330 : Troponin negative D-dimer negative. Basic labs are stable no potassium 3.1. He remains symptom-free at this time. Will replace potassium. Will await delta troponin. Two-view chest x-ray ordered. 0000: Potassium 3.1 oral replacement given. Remains symptom-free. Chest x-ray with atelectasis. Will await 2-hour troponin prior to disposition. If negative will be discharged with outpatient follow-up. 0044: Repeat troponin again negative less than his initial evaluation. Remains symptom-free. He will be discharged outpatient follow-up with strict return precautions. All questions were answered. Re-evaluation: stable Disposition discussed with patient/family/significant other: Patient and significant other Case discussed with consulting clinician: N/A This note was generated with [employer] dictation software. It may contain incorrect words, spelling, and punctuation that were not noted in checking the note before signing. Lab Data Attestation: I reviewed the patient's lab results. Labs: Laboratory Results - last 24 hr 08/17/23 08/18/23 22:05 00:13 WBC 4.1 L RBC 5.22 Hgb 15.4 Hct 45.4 MCV 87.0 MCH 29.5 MCHC 33.9 RDW Std Deviation 40.8 RDW Coeff of Destiny 13.0 Plt Count 147 L MPV 10.7 Immature Gran % (Auto) 0.000 Neut % (Auto) 38.9 L Lymph % (Auto) 49.8 H [place] % (Auto) 10.1 H Eos % (Auto) 0.7 Baso % (Auto) 0.5 Absolute Neuts (auto) 1.6 L Absolute Lymphs (auto) 2.02 Nucleated RBC % 0 D-Dimer Quant (PE/DVT) 0.44 Sodium 135 L Potassium 3.1 L Chloride 101 Carbon Dioxide 29.0 Anion Gap 5 BUN 18 Creatinine 0.97 Estim Creat Clear Calc 72.22 Est GFR (MDRD) Af Amer 97 Est GFR (MDRD) Non-Af 80 BUN/Creatinine Ratio 18.5 Glucose 195 H Calcium 9.4 Troponin I High Sens 12 9 Discharge Plan Triage Chief Complaint: Chest Pain ED Provider: Joe Joshua Dx/Rx/DC Orders Clinical Impression: Palpitations, History of coronary artery stent placement, Chest pain, Hypokalemia Instructions: ED Chest Pain, Uncertain Cause, ED Palpitations Prescriptions: No Action metformin 500 mg tablet 500 mg PO BID metoprolol tartrate 25 mg tablet 12.5 mg PO BID cholecalciferol (vitamin D3) 25 mcg (1,000 unit) tablet 4,000 unit PO DAILY cyanocobalamin (vitamin B-12) 1,000 mcg capsule 500 mcg PO DAILY losartan 100 mg tablet 100 mg PO DAILY omega 2-nmt-irh-fish oil [Fish Oil] 300-1,000 mg capsule 2 cap PO BID hydrochlorothiazide 25 mg tablet 25 mg PO DAILY allopurinol 300 mg tablet 300 mg PO DAILY aspirin 81 MG tablet 81 mg PO DAILY@0800 ezetimibe 10 mg tablet 10 mg PO DAILY Qty: 180 3RF Praluent Pen 75 mg/mL pen injector 150 mg subcut Q2W Rx Instructions: inject into abdomen, thigh, or upper arm (deltoid muscle); rotate sites Pt gets from the [place] Primary Care Provider: Miguelito Saul Referrals: Miguelito Saul MD [Primary Care Provider] - 3-5 Days Activity Restrictions/Additional Instructions: Cardiac workup was negative. Potassium 3.1 orally replaced. Follow-up with your doctor. If symptoms recur and worsens, return to the ED for reevaluation.
[2023-08-17 21:57] VITALS: O2SAT 95
[2023-08-17 22:02] VITALS: BP 156/92; PULSE 60; RESP 22; O2SAT 95
[2023-08-17 22:19] LABS: Absolute Lymphocyte Count 2.02 X10^3/uL (0.83-4.51); Absolute Neutrophil Count 1.6 X10^3/uL (2.0-7.7); Basophil# 0.02 X10^3/uL; Basophil% 0.5 % (0-1); Eosinophil# 0.03 X10^3/uL; Eosinophils% 0.7 % (0-5); Hematocrit 45.4 % (40-54); Hemoglobin 15.4 g/dL (13.0-16.5); Lymphocyte # 2.02 X10^3/ul (0.83-4.51); Lymphocyte % 49.8 % (19-41); Mean Corp Hgb Conc 33.9 g/dL (32-36); Mean Corpuscular Hgb 29.5 pg (27.0-32.0); Mean Platelet Vol. 10.7 fl (6.2-12.0); Monocyte# 0.41 X10^3/uL; Monocyte% 10.1 % (0-10); NRBC Flagged by Analyzer 0 % (0-5); Neutrophil # 1.58 X10^3/uL (2.7-7.7); Neutrophil % 38.9 % (47-70); Platelet Count 147 K/mm3 (150-450); RBC Distribution Width SD 40.8 fl (35.1-43.9); Red Blood Count 5.22 M/mm3 (4.6-6.2); White Blood Count 4.1 K/mm3 (4.4-11.0)
[2023-08-17 22:32] LABS: D-Dimer Quantitative (DVT/PE) 0.44 FEU/ug/m (0.27-0.49)
[2023-08-17 22:43] LABS: Anion Gap 5 (5-15); BUN 18 mg/dL (7-18); BUN/Creat Ratio 18.5 RATIO (10-20); Calcium,Total 9.4 mg/dL (8.5-10.1); Chloride 101 mmol/L (98-107); Creatinine, Serum 0.97 mg/dL (0.70-1.30); EST Glomerular Filtration Rate 80 mL/min (>60); Est Glom Filt Rate - Afr Amer 97 mL/min (>60); Estimated Creatinine Clearance 72.22 ml/min; Glucose 195 mg/dL (74-106); Potassium 3.1 mmol/L (3.5-5.1); Sodium Level 135 mmol/L (136-145); Troponin-I HS (w/2H Reflex) 12 pg/mL (3.0-78.0)
[2023-08-17 23:00] VITALS: BP 138/77; PULSE 62; RESP 118; O2SAT 95
--- NOTE | 2023-08-17 23:45 | RAD_ITS ---
STUDY: X-RAY CHEST REASON FOR EXAM: Male, 73 years old. chest pain TECHNIQUE: Single frontal view of the chest. COMPARISON: December 29, 2014 FINDINGS: Subsegmental atelectasis left base. There is no demonstrated pleural abnormality. Normal size heart. Normal mediastinum and ana. Normal visualized pulmonary arteries. Normal visualized aortic arch and descending thoracic aorta. Normal visualized thoracic spine. Normal visualized ribs, clavicles, and shoulders. There is no demonstrated abnormality of the visualized soft tissue structures of the upper abdomen. RAD/Chest PA and Lateral IMPRESSION: Subsegmental atelectasis left base Electronically Signed: Koko Khan MD at 0:45 EDT ,
[2023-08-18] VITALS: BP 145/88; PULSE 59; RESP 22; O2SAT 95
[2023-08-18] MEDS: Potassium Chloride Oral Tablet 20 MEQ 40 MEQ PO (00:07)
[2023-08-18 00:16] LABS: Reflex Troponin-HS? (from REC) Y
[2023-08-18 00:40] LABS: Troponin-I HS 9 pg/mL (3.0-78.0)
[2023-08-18 01:00] VITALS: BP 148/91; PULSE 59; RESP 18; TEMP 36.9; O2SAT 98
== END 2023-08-18 01:23 | disposition home or self-care (01) ==
PROVIDERS: Emergency Provider Emergency Medicine; PCP Family Medicine; Visit Provider Emergency Medicine
DX: R00.2 Palpitations (principal); E11.9 Type 2 diabetes mellitus without complications; E78.00 Pure hypercholesterolemia, unspecified; J98.11 Atelectasis; I10 Essential (primary) hypertension; Z95.5 Presence of coronary angioplasty implant and graft; I44.0 Atrioventricular block, first degree; Z82.49 Family history of ischemic heart disease and other diseases of the circulatory system; Z79.82 Long term (current) use of aspirin; I25.2 Old myocardial infarction; I25.10 Atherosclerotic heart disease of native coronary artery without angina pectoris
CPT/HCPCS: 71046; 80048; 84484; 85025; 85379; 93005; 99284; A4216

== ENCOUNTER → 2024-06-18 | Outpatient (CLI) | payer MEDICARE, OTHER, SELFPAY ==
--- NOTE | 2024-06-18 08:56 | RAD_ITS ---
PROCEDURE: FOOT MIN 3 VIEWS REASON FOR EXAM: Several month history of pain. TECHNIQUE: 3 views of the right foot were obtained. COMPARISON: None. FINDINGS: RIGHT FOOT: Marked degree of joint space narrowing at the 1st metatarsophalangeal joint with periarticular calcifications. Gout should be ruled out. Calcaneal spurs. RAD/Foot min 3 Views IMPRESSION: Degenerative changes at the 1st metatarsal phalangeal joint with periarticular ossifications suggestive of gout. Calcaneal spurs. Reading Location: [id number]
--- NOTE | 2024-06-18 08:56 | RAD_ITS ---
EXAM: XR Right Ankle Complete, 3 or More Views CLINICAL INDICATION: TECHNIQUE: Frontal, lateral and oblique views of the right ankle. COMPARISON: No relevant prior studies available. FINDINGS: BONES/JOINTS: See below. SOFT TISSUES: Soft tissue swelling without acute fracture. OTHER FINDINGS: Suboptimal exam secondary to underpenetration. RAD/Ankle min 3 Views IMPRESSION: 1. Soft tissue swelling without acute fracture. 2. If symptoms persist, further evaluation with CT is recommended. Reading Location: [facility]
== END | disposition home or self-care (01) ==
LOC: MTRAD 08:48
PROVIDERS: PCP Family Medicine; Referring Provider Family Medicine; Visit Provider Family Medicine
DX: M79.671 Pain in right foot (principal)
CPT/HCPCS: 73610; 73630

== ENCOUNTER → 2024-11-26 | Outpatient (CLI) | payer MEDICARE, OTHER, SELFPAY ==
--- NOTE | 2024-11-26 16:34 | CT_ITS ---
PROCEDURE: EXTREMITY UPPER WITHOUT CONTRA 11/26/2024 REASON FOR EXAM: BLUE PRINT PROTOCOL,PRIMARY OSTEOARTHRITIS, RIGHT SHOULDER TECHNIQUE: EXTREMITY UPPER WITHOUT CONTRA Coronal and Sagittal reconstruction series were provided. One or more dose reduction techniques were used (e.g., Automated exposure control, adjustment of the mA and/or kV according to patient size, use of iterative reconstruction technique. RADIATION DOSE SUMMARY: DLP: 803 mGycm COMPARISON: None FINDINGS: There is postsurgical change with suture anchors noted in the humeral head consistent with prior rotator cuff repair. There is severe supraspinatus and infraspinatus muscular atrophy, consistent with chronic rotator cuff tear. There is severe osteoarthritis of the glenohumeral articulation with joint space narrowing and marginal osteophytes. No acute fracture or dislocation is identified. The AC joint is aligned. There are corticated osteochondral fragments in the anterior superior joint space with the largest measuring 0.4 cm. There is a 0.5 cm corticated osteochondral fragment in the superior subscapularis recess. There is a moderate joint effusion. Mineralization is normal. Atherosclerotic calcifications are visible. CT/Extremity Upper without Contra IMPRESSION: There is postsurgical change with suture anchors noted in the humeral head cons istent with prior rotator cuff repair. There is severe supraspinatus and infraspinatus muscular atrophy, consistent wi th chronic rotator cuff tear. There is severe osteoarthritis of the glenohumeral articulation with joint spac e narrowing and marginal osteophytes. Reading Location: [facility]
== END | disposition home or self-care (01) ==
LOC: CT 16:32
PROVIDERS: PCP Family Medicine; Referring Provider Student in an Organized Health Care Education/Training Program; Visit Provider Student in an Organized Health Care Education/Training Program
DX: M19.011 Primary osteoarthritis, right shoulder (principal)
CPT/HCPCS: 73200

== ENCOUNTER 2024-12-23 13:06 | Observation (INO) | payer MEDICARE, OTHER, SELFPAY ==
--- NOTE | 2024-11-27 06:46 | EKG12_ITS ---
Test Reason : PREOP Blood Pressure : */* mmHG Vent. Rate : 56 BPM Atrial Rate : 56 BPM P-R Int : 228 ms QRS Dur : 100 ms QT Int : 416 ms P-R-T Axes : 49 -9 8 degrees QTcB Int : 401 ms Sinus bradycardia with 1st degree A-V block Incomplete right bundle branch block Borderline ECG Confirmed by Seven Grey ([id number]), website/blog editor KARINA GIVENS ([id number]) on 11/27/2024 9:43:00 AM Referred By: Major Yi Confirmed By: Seven Grey
--- NOTE | 2024-12-04 19:47 | PAT.ANE_ITS ---
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 When Was Last Pacemaker Check QUESTION #4 FULL TEXT: You/Your Family Experience fever (hyperthermia) with Anesthesia Last Oral Intake Last Oral intake: Last Oral Intake NPO since Meds taken in AM with sips of water? 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 Female No 12/03/24 10:59 HX of Motion Sickness No 12/03/24 10:59 HX of N/V After Surgery No 12/03/24 10:59 Non-Smoker Yes 12/03/24 10:59 Duration of Surgery greater Yes 12/03/24 10:59 than 60 minutes Number of Risk Factors 2 12/03/24 10:59 PONV Score Moderate Risk 12/03/24 10:59 Height & Weight Height & Weight: Anesthesia: Height & Weight Height 6 ft 04/04/24 14:18 Respiratory Assessment Respiratory Assessment - light armored vehicle officer: Respiratory Tract Infection Hx - 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 Has anyone observed you stop No 12/03/24 10:59 breathing during sleep? STOP Results Negative 12/03/24 10:59 QUESTION #5 FULL TEXT : Do you snore loudly (louder than talking or can be heard through closed doors)? 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 Specify any problems Hx of Preganancy in last 3 N/A 12/03/24 10:59 Months Nurse Filling Out Transfusion DSCHRIBER 12/03/24 10:59 & Questions: Date: 12/03/24 12/03/24 10:59 Time: 11:01 12/03/24 10:59 Patient unable to answer at this time (ie. 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Instructions ?Recorded ?Last Taken ?Type aspirin 81 mg tablet,delayed 81 mg PO DAILY@0800 06/0906/08/13 History release metoprolol tartrate 25 mg tablet 25 mg PO BID 05/10/17 Unknown History metformin 500 mg tablet 500 mg PO BID 05/11/17 Unkno wn History ezetimibe 10 mg tablet 10 mg PO DAILY #180 tabs Unknown Rx cholecalciferol (vitamin D3) 25 4,000 unit PO DAILY Unknown History mcg (1,000 unit) tablet cyanocobalamin (vitamin B-12) 500 mcg PO DAILY 0 Unknown History 1,000 mcg capsule alirocumab 75 mg/mL subcutaneous 150 mg subcut Q2W 02/04 Unknown History pen injector (Praluent Pen) losartan 100 mg tablet 100 mg PO QHS 02/08/22 Unkno wn History allopurinol 300 mg tablet 300 mg PO BID 04/04/24 Unkno wn History Allergy/AdvReac Type Severity Reaction Status Date / Time Ydrvycu-IVZ-MgG Reductase AdvReac Mild myalgias Verified 12/03/24 10:54 Inhibitor (Xooxons-Lcq-Qtx Reductase Inhibitor) Family History Brother CAD (coronary artery disease) Hx of CABG Surgical History (Updated 12/03/24 @ 11:11 by Juana Wing) Hx of colonoscopy Hx of total knee arthroplasty History of coronary artery stent placement History of left knee replacement (03/20/19) History of right knee surgery History of left knee surgery History of repair of rotator cuff Social History Smoking Status: Never smoker alcohol intake: never substance use type: does not use caffeine: Yes Type: carbonated beverages Number of servings: 1 Audit: Pertinent Findings Pertinent Findings EKG Perinent findings: 11/27/2024. Sinus bradycardia with first-degree AV block. Incomplete right bundle branch block. Stress test pertinent findings: 03/14/2023. EF of 66%. No areas of reversibility are noted to suggest ischemia. No previous infarct. Echo (EF%) pertinent findings: 02/02/2021. EF is 60%. No aortic stenosis noted. Consult pertinent findings: 04/04/2024. Dr. Purcell. 1. History coronary artery stent placement-PCI/TIFFANI to the left circumflex. Stable at this time. Continue current medical therapy. 2. Hypertension?well-controlled. Continue current medical therapy. Recommendation Anesthesia Recommendation Anesthesia recommendation: OPTIMIZED for anesthesia
[2024-12-23] VITALS (15 sets, daily range): BP systolic 125–155; BP diastolic 71–100; PULSE 57–101; RESP 14–18; TEMP 36.1–36.6; O2SAT 92–99; BMI 26.9
[2024-12-23] MEDS: LR 1,000 ML - BOLUS PREOP 999 ML IV (10:29)
[2024-12-23 10:40] LABS: Magnesium 1.8 mg/dL (1.5-2.2)
[2024-12-23] MEDS: Magnesium 2 GM for ERAS IV (10:50)
--- NOTE | 2024-12-23 10:52 | PCM.PRE.AN2 ---
ASA Classification* ASA Classification ASA Classification: 2 Assessment & Plan Anesthesia* Anesthesia Assessment Anesthesia Assessment: Discussed sedation and/or anesthesia options, risks, benefits, and alternatives with patient/parents/legal guardian/POA. Questions invited. The patient/parents/legal guardian/POA seems to understand and agrees to proceed with anesthesia plan. Reviewed the physical assessment, medical history, allergy history and patient home medications list prior to surgery/procedure/anesthetic and documented any changes. Performed airway and anesthesia risk assessments. Anesthesia Type Anesthesia Type: General and Block History Source History Obtained from:: Patient and Chart Anesthesia Focused Assessment* Temperature: 97.6 F Pulse Rate: 57 Blood Pressure: 147/90 Respiratory Rate: 16 Pulse Ox: 99 Oxygen Delivery Method: Room Air Airway Assessment Mouth opens: >3 cm Mallampati Score: II Teeth Condition: Caps/Crowns Neck Range of motion (ROM): Full ROM Labs Anesthesia Preop lab: CBC WBC 4.1 K/mm3 (4.4-11.0) L 08/17/23 22:08/17/23 RBC 5.22 M/mm3 (4.6-6.2) 08/17/23 22:08/17/23 Hgb 15.4 g/dL (13.0-16.5) 08/17/23 22:08/17/23 Hct 45.4 % (40-54) 08/17/23 22:08/17/23 Plt Count 147 K/mm3 (150-450) L 08/17/23 22:08/17/23 CHEMISTRY Potassium 3.1 mmol/L (3.5-5.1) L 08/17/23 22:08/17/23 Sodium 135 mmol/L (136-145) L 08/17/23 22:08/17/23 Magnesium 1.8 mg/dL (1.5-2.2) 12/23/24 10:15 12/23/24 BUN 18 mg/dL (7-18) 08/17/23 22:08/17/23 Creatinine 0.97 mg/dL (0.70-1.30) 08/17/23 22:08/17/23 Glucose 195 mg/dL (74-106) H 08/17/23 22:08/17/23 TSH 1.39 uIU/mL (0.358-3.74) 12/27/19 09:37 12/27/19 COAG PT 13.4 SECONDS (11.7-14.9) 07/24/14 07:45 07/24/14 Pre-Assessment Diagnosis/Proposed Procedure Planned Operative Procedure(s): RIGHT REVERSE TOTAL SHOULDER ARTHROPLASTY Anesthesia History 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 When Was Last Pacemaker Check QUESTION #4 FULL TEXT: You/Your Family Experience fever (hyperthermia) with Anesthesia Last Oral Intake Last Oral intake: Last Oral Intake NPO since 06:00 12/23/24 10:31 Meds taken in AM with sips of Yes 12/23/24 10:31 water? 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 Female No 12/03/24 10:59 HX of Motion Sickness No 12/03/24 10:59 HX of N/V After Surgery No 12/03/24 10:59 Non-Smoker Yes 12/03/24 10:59 Duration of Surgery greater Yes 12/03/24 10:59 than 60 minutes Number of Risk Factors 2 12/03/24 10:59 PONV Score Moderate Risk 12/03/24 10:59 Height & Weight Height & Weight: Anesthesia: Height & Weight Height 6 ft 12/23/24 10:31 Weight: 90 kg 12/23/24 10:31 Body Mass Index (BMI) 26.9 12/23/24 10:31 Respiratory Assessment Respiratory Assessment - automotive services manager: Respiratory Tract Infection Hx - automotive services manager Hx Respiratory Tract Infection No 12/03/24 10:59 STOP Sleep Apnea STOP Sleep Apnea - automotive services manager: STOP Sleep Apnea - automotive services manager Hx Hypertension Yes: CONTROLLED WITH MED 12/03/24 10:59 Hx Sleep Apnea No 12/03/24 10:59 CPAP BIPAP Do you snore loudly (louder No 12/03/24 10:59 than talking or can be heard Do you often feel tired/ No 12/03/24 10:59 fatigued/ sleepy during daytime? Has anyone observed you stop No 12/03/24 10:59 breathing during sleep? STOP Results Negative 12/03/24 10:59 QUESTION #5 FULL TEXT : Do you snore loudly (louder than talking or can be heard through closed doors)? 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 Specify any problems Hx of Preganancy in last 3 N/A 12/03/24 10:59 Months Nurse Filling Out Transfusion DSCHRIBER 12/03/24 10:59 & Questions: Date: 12/03/24 12/03/24 10:59 Time: 11:01 12/03/24 10:59 Patient unable to answer at this time (ie. 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: /Reproductive Hx- automotive services manager Hx Now No 12/03/24 10:59 Gestational Age (in weeks): EDC: Hx Hx Para Hx Section SAB No 12/03/24 10:59 Active Medications Active Medications: Current Medications Generic Name Dose Route Start Last Admin Trade Name Freq PRN Reason Stop Dose Admin Acetaminophen 1,000 mg 12/23/24 12:00 12/23/24 10:29 Acetaminophen 500 Mg Tablet PO 12/23/24 12:01 1,000 mg PREOP ONE Administration Celecoxib 400 mg 12/23/24 12:00 12/23/24 10:30 Celecoxib 200 Mg Capsule PO 12/23/24 12:01 400 mg PREOP ONE Administration Dexamethasone Sodium Phosphate 10 mg 12/23/24 12:00 Dexamethasone 10 Mg/Ml Vial IV 12/23/24 12:01 INTRAOP ONE Gabapentin 600 mg 12/23/24 12:00 12/23/24 10:30 Gabapentin 600 Mg Tablet PO 12/23/24 12:01 600 mg PREOP ONE Administration Lactated Ringer's 1,000 mls @ 999 mls/hr 12/23/24 12:00 12/23/24 10:29 IV 12/23/24 13:00 999 mls/hr .Q1H1M ALE Administration Cefazolin Sodium 2 gm/ Sodium 110 mls @ 150 mls/hr 12/23/24 12:00 Chloride IV 12/23/24 12:43 INTRAOP ONE Tranexamic Acid 1,000 mg/ 110 mls @ 660 mls/hr 12/23/24 12:00 Sodium Chloride IV 12/23/24 12:09 INTRAOP ONE Lactated Ringer's 1,000 mls @ 999 mls/hr 12/23/24 12:00 IV 12/23/24 13:00 .Q1H1M ALE Lactated Ringer's 1,000 mls @ 125 mls/hr 12/23/24 12:00 IV 12/23/24 19:59 .Q8H ALE Magnesium Sulfate 2 gm/ 104 mls @ 208 mls/hr 12/23/24 10:50 Dextrose IV 12/23/24 11:19 PREOP ONE Insulin Human Lispro 1 - 6 unit 12/23/24 12:00 12/23/24 10:38 Insulin Lispro 100 Unit/Ml Insuln.Pen SC 12/23/24 18:00 1 u Q4H PRN PRN Administration BG>/= 180, SEE PROTOCOL Protocol PFSH Medical History Wears hearing aid Wears glasses Wears partial dentures History of steroid therapy Arthritis Dietary restriction Non-smoker History of echocardiogram History of stress test Cardiology follow-up encounter Diabetes Myocardial infarct Hypertension Osteoarthritis Gout Atherosclerosis of coronary artery of [place] heart without angina pectoris Hyperlipidemia Home Medications ?Medication ?Instructions ?Recorded ?Last Taken ?Type aspirin 81 mg tablet,delayed 81 mg PO DAILY@0800 06/09/13 12/17/24 History release metoprolol tartrate 25 mg tablet 25 mg PO BID 05/10/17 12/23/24 06:26 History metformin 500 mg tablet 500 mg PO BID 05/11/17 12/22/24 History ezetimibe 10 mg tablet 10 mg PO DAILY #180 tabs 10/02/17 12/22/24 Rx cholecalciferol (vitamin D3) 25 4,000 unit PO DAILY 01/21/20 12/17/24 History mcg (1,000 unit) tablet cyanocobalamin (vitamin B-12) 500 mcg PO DAILY 01/21/20 12/17/24 History 1,000 mcg capsule alirocumab 75 mg/mL subcutaneous 150 mg subcut Q2W 03/26/21 12/15/24 History pen injector (Praluent Pen) losartan 100 mg tablet 100 mg PO QHS 02/08/22 12/22/24 History allopurinol 300 mg tablet 300 mg PO BID 04/04/24 12/22/24 History Allergy/AdvReac Type Severity Reaction Status Date / Time Ejxwhvy-GAP-QhW Reductase AdvReac Mild myalgias Verified 12/23/24 10:26 Inhibitor (Ywkaemr-Git-Pxr Reductase Inhibitor) Family History Brother CAD (coronary artery disease) Hx of CABG Surgical History Hx of colonoscopy Hx of total knee arthroplasty History of coronary artery stent placement History of left knee replacement (03/20/19) History of right knee surgery History of left knee surgery History of repair of rotator cuff Social History Smoking Status: Never smoker alcohol intake: never substance use type: does not use caffeine: Yes Type: carbonated beverages Number of servings: 1 Review of Systems (Anesthesia) ROS Narrative System reviewed and no additional complaints, except as documented.
[2024-12-23] MEDS: Midazolam 2 MG/2 ML Syringe IV (11:07)
[2024-12-23] MEDS: Lactated Ringers 1,000 ML 1000 ML IV (11:22)
[2024-12-23] MEDS: Cefazolin 1 GM/5 ML Vial 2 GM IV (11:22)
[2024-12-23] MEDS: fentaNYL 100 MCG/2 ML Ampul IV (11:27)
[2024-12-23] MEDS: TRANEXAMIC ACID 1,000 MG/10 ML ML 1000 MG IV (11:39)
--- NOTE | 2024-12-23 13:22 | OP.PCM_ITS ---
Operative Report (Standard) Operative Information Date of Procedure: 12/23/24 Pre-Operative Diagnosis: Right shoulder rotator cuff tear arthropathy Post-Operative Diagnosis: Right shoulder rotator cuff tear arthropathy Surgery/Procedure Performed: Right reverse total shoulder arthroplasty marine painter: Yes Restaurant Line Server: Oneyda Solano Tasks completed by certified anesthesiologist assistant: Opening & closing, Implanting device, Hemostasis: Electrocautery and Retracting Type of Anesthesia: General/Regional RN Documented Start/Stop Times: Operation Date: 12/23/24 12:00 Case Time Into Pre-Op 12/23/24 09:48 Out of Pre-Op 12/23/24 11:00 Anesthesia Start 12/23/24 11:22 Into Room 12/23/24 11:22 Procedure Start 12/23/24 11:49 Procedure End 12/23/24 13:16 Procedure Start Time: 11:49 Procedure Stop Time: 13:16 Select all DRAINS/GRAFTS/IMPLANTS that apply: Implanted device Implanted device details: Tornier Aequalis PerFORM+ reversed baseplate 29 mm diameter +6 mm lateralization, standard glenosphere cobalt chrome 42 mm diameter, Tornier perform inlay stem size #3, + 6 mm retentive size number 3 42 mm diameter polyethylene insert, short central post and peripheral screws x4. Estimated Blood Loss: 150 cc Specimen collected: No Description of surgery: Patient arrived to [facility] morning of the procedure and was greeted by the same day surgery staff. Prior to his procedure, I greeted the patient in the preoperative holding area I identified the patient by name, record number, and date of . Informed consent was confirmed. The operative extremity was marked. All questions were answered to patient satisfaction. An interscalene block was administered prior to procedure by anesthesia staff for postoperative and intraoperative analgesia. At time of his procedure, patient was brought to the operative suite and positioned supine on a standard table with a beachchair attachment. General anesthesia was induced after all bony prominences were well-padded. Endotracheal tube was placed. After adequate anesthesia and securing the tube, we prepared the patient to be positioned in the beachchair position. A well- padded head of business development was applied. The nonoperative extremity was placed in a well arm raza. He was then brought into the beachchair position after we confirmed an appropriate blood pressure. We then spun the bed 45 degrees. The operative extremity was then prepared. In the butterfly wing of the bed was removed and a well-padded torso strap was applied to secure the patient to the bed. The operative extremity was now free. We then prepped and draped the right upper extremity in normal, sterile orthopedic fashion. We then performed a timeout with all parties in attendance in agreement with the side, site, and operation be performed. 2 g Ancef was administered prior to incision by anesthesia staff, as well as 1 g TXA IV. No concerns were voiced and we elected to proceed. I first marked a standard deltopectoral incision just lateral to the coracoid process in line with the long axis of the humerus. Skin was sharply incised with 10 blade scalpel. I then dissected bluntly through the subcutaneous layers and found the fat stripe between the deltoid and pectoralis major. The cephalic vein was then identified and protected. It was retracted laterally with the deltoid. I then bluntly dissected underneath the deltoid with a Lamb elevator. Lenny retractor was placed. The upper 1 cm of the pectoralis major was released. The long head biceps tendon was not identified and appeared to be chronically ruptured and retracted. I then identified the lesser and greater tuberosities. The supraspinatus was completely torn and retracted with an exposed greater tuberosity. Prior rotator cuff repair sutures were identified and removed. I then performed a subscapularis peel while rotating the humerus externally. I tagged the subscapularis for possible repair later with a tagging suture. Humeral head was then dislocated anteriorly. Appropriate access to the humeral head was confirmed. I then subluxed the humeral head posteriorly with a Fukuda retractor placed around the posterior lip of the glenoid. Inferior capsule was tension. I was able to palpate the axillary nerve. Inferior capsule was then released to the 4 o'clock position of the glenoid face. 3 sided subscapularis release was performed with Bovie cautery. I then remove the Fukuda retractor and redislocated the shoulder anteriorly. I then made a anatomic neck cut of the cartilaginous surface of the humeral head. A metallic suture anchor was identified and also removed. Sizing plate for a size # 3 stem was utilized to determine appropriate reaming size. A central pin was placed engaging the lateral cortex of the humerus. A size # 3 reamer was used to ream the humeral metaphysis and prepare for the inlay stem. A canal finding reamer was utilized prior to sequential broaching to a size # 3 short stem with excellent rotational and axial purchase in the humerus. I remove the broach handle left the size # [address] I then subluxed the humerus posterior to the glenoid. I then placed retractors around the posterior and anterior glenoid to expose the glenoid. Glenoid labrum was removed with Bovie cautery protecting the axillary nerve. We then used the 29 mm guide from [employer] to position our centering pin, exiting approximately 25 mm from the joint surface along the anterior scapula. Guide was removed and pin was analyzed and compared to preoperative planning. It appeared to be in appropriate position. The Nautilus shaped reamer was then placed over top of the centering pin. I reamed a flat surface of the glenoid. We then removed the reamer and used the cannulated drill for the short central post. Post and baseplate was assembled on the back table. We then inserted the baseplate and central post the assembled baseplate to an appropriate depth with good press-fit purchase. A [place] was used to confirm depth. Cortical screws then were placed in the peripheral holes with good purchase. The baseplate had excellent purchase and the entire scapula would rotate with rotation of the baseplate. We then impacted the 42 mm glenosphere with a standard eccentricity and tightened the locking screw mechanism. We then removed retractors and turned our attention back to the humerus. I trialed multiple polyethylene sizes. I placed a +6 millimeters retentive polyethylene insert. I then reduced the shoulder. There was excellent range of motion and stability in all planes of motion. We selected this as our final size. We removed trials from the humerus after final dislocation. I copiously irrigated the canal. Broach was placed on hand and then impacted to an appropriate depth. Final + 6 mm retentive polyethylene insert was placed. Final reduction was then performed. The subscapularis was then identified with a tagging suture. Repair would have been likely under undue tension and likely failed. I elected to not perform a subscapularis repair. We then copiously irrigated the wound with sterile Betadine and normal saline solution. We reapproximated the interval with 0 Vicryl suture. Subcutaneous layers were reapproximated with 2 -0 Vicryl suture. Skin was finally running V- Loc 3-0 Monocryl suture and Dermabond. A sterile silver Mepilex dressing was applied. Patient was then placed in an ultra sling. Patient tolerated procedure well without complication. He was positioned back in the supine position extubated in the operative suite. He was transferred to the rkillen and subsequently to PACU in stable condition. Need for skilled drug safety assistant: Oneyda Solano PA-C was critical to the outcome of the case. During the course of the procedure the physician drug safety assistant played a vital role. Her intimate knowledge of my steps in the procedure aided in safe and expedient completion of the procedure. The PA played a vital role in positioning particularly in obtaining the appropriate positioning. The PA was also vital in the retraction of soft tissues during the exposure and protecting vital structures. The PA was also vital and protecting soft tissues during times of bony cuts. She also played a vital role in closure with my direct supervision. The PA was also important during reduction and dislocation of the joint and trials intraoperatively. Intraoperative medications: 2 g Ancef IV, 1 g TXA IV x2 Post Operative Plan: Weightbearing: Nonweightbearing right upper extremity, okay for pendulums. Range of motion of wrist elbow and hand as tolerated. Sling x 4 weeks postoperatively. Antibiotics: 2 g Ancef IV prior to incision, 24 hours IV antibiotics postoperatively. DVT Prophylaxis: Aspirin enteric-coated 81 mg twice daily starting tomorrow Hunter: None Dressing: Maintain silver dressing x5 days. Okay to shower dressing on started on day 4 X-Rays: 2 weeks postop in the office Pain Medication: Oxycodone Rx upon discharge Follow-up: 2 weeks post-operatively with me in the office Surgical Findings: Rotator cuff tear arthropathy. Stable right shoulder following final reduction. Complications Complications: No Admit VTE Documentation VTE Present on Admission: No VTE Mechan Device Prophylaxis: SCD's and Knee High JESE Hose VTE Pharm Prophylaxis ordered?: Yes
--- NOTE | 2024-12-23 13:32 | PCM.POST.ANE ---
Anesthesia: Postop Eval I Current Vital Signs Temperature: 97 F Pulse Rate: 89 Blood Pressure: 145/87 Respiratory Rate: 18 Pulse Ox: 93 Assessment Airway patent: Yes Spontaneous unlabored respirations: Yes nausea: No Vomiting: No Anesthesia Complication: No Fluid Hydration Crystalloid volume administer (ml): 1,300 Total IV fluid infused: 1,300 Progress Note Anesthesia document: Postop Eval 1 completed: Yes
--- NOTE | 2024-12-23 13:40 | RAD_ITS ---
PROCEDURE: SHOULDER MIN 2 VIEWS 12/23/2024 REASON FOR EXAM: POST OP TECHNIQUE: Procedure Code: RADSH Modality: DX Procedure: SHOULDER MIN 2 VIEWS Laterality: Right COMPARISON: Previous September 2020. FINDINGS: Bones: Right shoulder reverse arthroplasty. Orthopedic hardware intact. Mild degenerative changes in the right AC joint. Negative for fractures. Scapula otherwise negative. Proximal humerusotherwise negative. Clavicle negative. Joints: Right shoulder reverse arthroplasty intact. Soft tissues: Surgical changes. Otherwise adjacent structures negative. Other: Remainder of the exam negative. RAD/Shoulder min 2 Views IMPRESSION: Right shoulder reverse arthroplasty. Reading Location: [place] [address]
[2024-12-23] MEDS: LR 1,000 ML - BOLUS POSTOP 999 ML IV (13:46)
--- NOTE | 2024-12-23 14:33 | POSTOPAN2_ITS ---
Anesthesia Postop Eval I Sum Postop Eval Completion status Anesthesia document: Postop Eval 1 completed: Yes Anesthesia Postop Eval I Summary Anesthesia Postop Eval I Summary: Anesthesia Postop Eval I: Assessment Summary Airway patent Yes 12/23/24 13:32 NEGATIVE TURNER.CSIR Spontaneous unlabored Yes 12/23/24 13:32 NEGATIVE TURNER.CSIR respirations Mental status nausea No 12/23/24 13:32 NEGATIVE TURNER.CSIR Vomiting No 12/23/24 13:32 NEGATIVE TURNER.CSIR Anesthesia Postop Eval I: Fluid Summary Crystalloid volume administer 1,300 12/23/24 13:32 NEGATIVE TURNER.CSIR (ml) Colloids volume administered ( ml) Blood Product volume administered (ml) Total IV fluid infused 1,300 12/23/24 13:32 NEGATIVE TURNER.CSIR Anesthesia Postop Eval I: Summary Notes Anesthesia Complication No 12/23/24 13:32 NEGATIVE TURNER.CSIR Anesthesia Complication Comment: Post-operative progress note Anesthesia: Postop Eval II Evaluation Mental status: Awake and Calm Pain Level: 1 nausea: No Vomiting: No Complications Anesthesia Complication: No
--- NOTE | 2024-12-23 14:33 | PCM.POSTANE2 ---
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 Spontaneous unlabored Yes 12/23/24 13:32 AUTOMOTIVE SERVICE TECHNICIAN.CSIR respirations Mental status nausea No 12/23/24 13:32 AUTOMOTIVE SERVICE TECHNICIAN.CSIR Vomiting No 12/23/24 13:32 AUTOMOTIVE SERVICE TECHNICIAN.CSIR Anesthesia Postop Eval I: Fluid Summary Crystalloid volume administer 1,300 12/23/24 13:32 AUTOMOTIVE SERVICE TECHNICIAN.CSIR (ml) Colloids volume administered ( ml) Blood Product volume administered (ml) Total IV fluid infused 1,300 12/23/24 13:32 AUTOMOTIVE SERVICE TECHNICIAN.CSIR Anesthesia Postop Eval I: Summary Notes Anesthesia Complication No 12/23/24 13:32 AUTOMOTIVE SERVICE TECHNICIAN.CSIR Anesthesia Complication Comment: Post-operative progress note Anesthesia: Postop Eval II Evaluation Mental status: Awake and Calm Pain Level: 1 nausea: No Vomiting: No Complications Anesthesia Complication: No
[2024-12-23] MEDS: LR 1,000 ML - 125 ML/HR (POST BOLUS) POST OP IV (14:46)
--- NOTE | 2024-12-23 16:08 | PCM.CONS.GEN ---
Assessment & Plan Assessment/Plan (1) Right rotator cuff tear arthropathy: PLAN: Plan Patient is a 74-year-old male who presented to [facility] on 12/23/2024 for planned right shoulder procedure. Medicine consulted postoperatively for medical management. 1. Right shoulder rotator cuff tear arthropathy ? Orthopedic surgery primary. S/p right reverse total shoulder arthroplasty with Dr. Yi on 12/23. Tolerated procedure well. Postoperative pain control, DVT prophylaxis and further management per orthopedics. PT/OT/case management consulted. Follow-up a.m. labs. 2. History of CAD with stenting, hypertension, hyperlipidemia ? Normotensive postoperatively. Continue home Lopressor, losartan, Zetia and baby aspirin. 3. Type 2 diabetes mellitus ? Will treat with sliding scale insulin with meals while inpatient. Hold home metformin. 4. History of gout ? Continue home allopurinol. Total clinical time spent by myself addressing the patient's medical issues, reviewing all the data, and collaborating with patient's care team: 38 minutes. HPI Consult Data Date of Consult: 12/23/24 HPI Narrative Reason for Consultation: Postoperative medical management HPI Narrative: MARIA E GUTHRIE, is a 74 M who presented to [facility] on 12/23/2024 for planned orthopedic procedure. Medicine consulted postoperatively for medical management. Patient had right reverse total shoulder arthroplasty done with Dr. Yi today. Tolerated procedure well. I saw the patient at bedside later this afternoon. Patient was sitting up comfortably in bed, conversing normally, in no acute distress. Noted that he did still have some numbness and tingling in his fingers but denied any pain or discomfort in the shoulder. No other acute concerns at this time. [facility] Medical History Wears hearing aid Wears glasses Wears partial dentures History of steroid therapy Arthritis Dietary restriction Non-smoker History of echocardiogram History of stress test Cardiology follow-up encounter Diabetes Myocardial infarct Hypertension Osteoarthritis Gout Atherosclerosis of coronary artery of [place] heart without angina pectoris Hyperlipidemia Home Medications ?Medication ?Instructions ?Recorded ?Last Taken ?Type aspirin 81 mg tablet,delayed 81 mg PO DAILY@0800 06/09/13 12/17/24 History release metoprolol tartrate 25 mg tablet 25 mg PO BID 05/10/17 12/23/24 06:26 History metformin 500 mg tablet 500 mg PO BID 05/11/17 12/22/24 History ezetimibe 10 mg tablet 10 mg PO DAILY #180 tabs 10/02/17 12/22/24 Rx cholecalciferol (vitamin D3) 25 4,000 unit PO DAILY 01/21/20 12/17/24 History mcg (1,000 unit) tablet cyanocobalamin (vitamin B-12) 500 mcg PO DAILY 01/21/20 12/17/24 History 1,000 mcg capsule alirocumab 75 mg/mL subcutaneous 150 mg subcut Q2W 03/26/21 12/15/24 History pen injector (Praluent Pen) losartan 100 mg tablet 100 mg PO QHS 02/08/22 12/22/24 History allopurinol 300 mg tablet 300 mg PO BID 04/04/24 12/22/24 History Allergy/AdvReac Type Severity Reaction Status Date / Time Ekqnhmg-GBS-RtS Reductase AdvReac Mild myalgias Verified 12/23/24 10:26 Inhibitor (Owjzohr-Mvb-Koh Reductase Inhibitor) Family History Brother CAD (coronary artery disease) Hx of CABG Surgical History Hx of colonoscopy Hx of total knee arthroplasty History of coronary artery stent placement History of left knee replacement (03/20/19) History of right knee surgery History of left knee surgery History of repair of rotator cuff Social History Smoking Status: Never smoker alcohol intake: never substance use type: does not use caffeine: Yes Type: carbonated beverages Number of servings: 1 ROS Constitutional Constitutional: Denies chills, fatigue, fever(s) or weakness Cardiovascular Cardiovascular: Denies chest pain Respiratory/Chest Respiratory/Chest: Denies shortness of breath at rest Gastrointestinal Gastrointestinal: Denies abdominal pain Musculoskeletal Musculoskeletal: Denies arthralgias, joint pain or myalgias Neurologic Neurologic: Denies focal weakness Physical Exam Const alert, oriented x3, no apparent distress, average body habitus, healthy appearing and well nourished Constitutional Narrative: Pleasant elderly male, sitting back comfortably in bed, conversing normally, in no acute distress. General Appearance: cooperative, comfortable, well kempt and well developed HEENT normocephalic, head/scalp atraumatic, hearing grossly normal bilaterally, nasal mucous membranes and turbinates normal and moist oral mucous membranes Eyes PERRL, EOMs intact bilaterally and conjunctivae normal Neck full ROM Chest inspection of chest normal Resp normal respiratory effort, normal air movement, no use of accessory muscles and clear to auscultation bilaterally Cardio regular rate, regular rhythm, no murmurs and peripheral pulses 2+ throughout GI normal to inspection, nondistended, normoactive bowel sounds, soft to palpation, non-tender and non-distended Back/Spine normal ROM Extremity Extremity Narrative: Right arm with sling in place. Skin no rashes or lesions noted Psych mental status grossly normal Lab / Micro Data Labs: Laboratory Results - last 24 hr 12/23/24 10:15: Magnesium 1.8 12/23/24 10:22: POC Glucose 195 H 12/23/24 14:16: POC Glucose 166 H Imaging Radiology Impression Shoulder X-Ray 12/23/24 13:40 IMPRESSION: Right shoulder reverse arthroplasty. Reading Location: [place] [address] Charges/Coding Visit Charges Inpatient E&M: 17372 Subs Hosp L2
[2024-12-23] MEDS: Cefazolin 1 GM/50 ML BAG IV (18:57)
[2024-12-23] MEDS: Senna/Docusate Sodium 1 Tablet 2 TABLET PO (21:54)
[2024-12-24 00:35] VITALS: BP 130/72; PULSE 82; RESP 18; TEMP 36.5; O2SAT 92
[2024-12-24] MEDS: Cefazolin 1 GM/50 ML BAG IV (04:30)
[2024-12-24 04:31] VITALS: BP 110/66; PULSE 58; RESP 18; TEMP 36.6; O2SAT 94
[2024-12-24 05:11] LABS: Hematocrit 39.7 % (40-54); Hemoglobin 13.5 g/dL (13.0-16.5); Mean Corp Hgb Conc 34.0 g/dL (32-36); Mean Corpuscular Volume 87.1 fL (80-94); Mean Platelet Vol. 11.7 fl (6.2-12.0); Platelet Count 174 K/mm3 (150-450); RBC Distribution Width CV 13.4 % (11.6-14.6); RBC Distribution Width SD 41.7 fl (35.1-43.9); Red Blood Count 4.56 M/mm3 (4.6-6.2); White Blood Count 10.6 K/mm3 (4.4-11.0)
[2024-12-24 05:33] LABS: Anion Gap 15 (5-15); BUN 20 mg/dL (4-19); BUN/Creat Ratio 19.8 RATIO (10-20); Calcium,Total 9.2 mg/dL (7.6-11.0); Carbon Dioxide 19.6 mmol/L (21.0-32.0); Chloride 100 mmol/L (98-108); Estimated Creatinine Clearance 68.29 ml/min (50-250); Glucose 175 mg/dL (70-99); Potassium 4.4 mmol/L (3.3-5.1)
[2024-12-24] MEDS: 0.9% Saline Lock 10 ML Syringe IV (06:07)
[2024-12-24 08:26] VITALS: BP 128/71; PULSE 58; RESP 18; TEMP 36.4; O2SAT 95
[2024-12-24 08:33] VITALS: PULSE 58
[2024-12-24] MEDS: Senna/Docusate Sodium 1 Tablet 2 TABLET PO (08:33)
[2024-12-24] MEDS: Ensure Surgery 237 ML LIQUID PO (08:33)
[2024-12-24] MEDS: Aspirin E.C. 81 MG Tablet PO (08:33)
--- NOTE | 2024-12-24 09:14 | PN.HOSP_ITS ---
Subjective Subjective Doing well, pain is controlled Objective Data Objective Data Vital Signs: Vital Signs Temp Pulse Resp BP Pulse Ox O2 Del Method O2 Flow Rate 97.6 F L 58 L 18 128/71 H 95 Room Air 2 12/24/24 08:26 12/24/24 08:33 12/24/24 08:26 12/24/24 08:26 12/24/24 08:26 12/24/24 08:29 12/23/24 18:43 Oxygen Flow Rate (L/min) 2 Oxygen Delivery Method Room Air Weight: 198 lb 6.656 oz Body Mass Index (BMI) 26.9 Intake & Output: Intake and Output for Last 24 Hours 12/23/24 12/24/24 12/25/24 03:59 03:59 03:59 Intake Total 4204 / 4204 1550 / 1550 Output Total 150 / 150 Balance 4054 / 4054 1550 / 1550 Lab / Micro Data 12/24/24 04:05 12/24/24 04:05 Labs: Laboratory Results - last 24 hr 12/23/24 10:15: Magnesium 1.8 12/23/24 10:22: POC Glucose 195 H 12/23/24 14:16: POC Glucose 166 H 12/23/24 21:53: POC Glucose 272 H 12/24/24 04:05: WBC 10.6, RBC 4.56 L, Hgb 13.5, Hct 39.7 L, MCV 87.1, MCH 29.6, MCHC 34.0, RDW Std Deviation 41.7, RDW Coeff of Destiny 13.4, Plt Count 174, MPV 11.7, Sodium 135, Potassium 4.4, Chloride 100, Carbon Dioxide 19.6 L, Anion Gap 15, BUN 20 H, Creatinine 1.01, Estim Creat Clear Calc 68.29, Est GFR (MDRD) Non- Af 77, BUN/Creatinine Ratio 19.8, Glucose 175 H, Calcium 9.2 12/24/24 06:07: POC Glucose 188 H Radiography Diagnostic Testing: Radiology Impression Shoulder X-Ray 12/23/24 13:40 IMPRESSION: Right shoulder reverse arthroplasty. Reading Location: [place] [address] Physical Exam Narrative General: Alert, Oriented x3, Cooperative, No apparent distress HEENT: Atraumatic, PERRLA, EOMI, Normocephalic Oral: Moist Mucosa Neck: Supple, No JVD Lungs: Diminished, Normal air movement, No rhonchi, No wheeze, No rales Cardiovascular: Regular rate, Regular Rhythm, Normal S1, Normal S2, No murmurs Abdomen: Soft, Non Tender, Non-Distended, No Hepato-splenomegaly Extremities: No edema, Capillary Refill Less than 3 Seconds Skin: No rashes, No breakdown Musculoskeletal: Right shoulder dressing CDI Neurological: No focal neurological deficits, Motor Exam 5/5 strength throughout, Sensory exam intact to light touch and pain Psych/Mental Status: Normal Affect, Appropriate Assessment & Plan Assessment/Plan (1) Right rotator cuff tear arthropathy: PLAN: Plan 1. Right shoulder rotator cuff tear arthropathy s/p reverse total shoulder arthroplasty on 12/23/2024 ? Pain management per primary - PT/OT - Medically stable for discharge 2. History of CAD with stenting/essential HTN/HLD ? Normotensive postoperatively. Continue home Lopressor, losartan, Zetia and baby aspirin. - BP stable will monitor and make adjustments as necessary 3. Type 2 diabetes mellitus ? Will treat with sliding scale insulin with meals while inpatient. Hold home metformin. - will monitor and make adjustments as necessary 4. History of gout - Stable ? Continue home allopurinol. DVT: Per primary Will sign off, call with questions Charges/Coding Visit Charges Inpatient E&M: 91045 Subs Hosp L2
--- NOTE | 2024-12-24 10:18 | DS.PCM_ITS ---
Providers Date of Admission: 12/23/24 Date of Discharge: 12/24/24 Primary Care Physician: Dr. Miguelito Saul MD Consultations 12/23/24 13:04 Consult: Hospitalist Routine Consulting Provider: Hansel Sultana Reason for Consult: post op total shoulder medical management EMERGENT Consult: No MD Notified: Yes Date Notified: 12/23/24 Time Notified: 14:54 Method of Notification: Text Reason For Visit: ERAS, RIGHT REVERSE TOTAL SHOULDER ARTHROPLASTY Diagnosis Discharge Diagnosis (1) Right rotator cuff tear arthropathy: Status: Acute Code(s): M75.101 - Unspecified rotator cuff tear or rupture of right shoulder, not specified as traumatic; M12.811 - Other specific arthropathies, not elsewhere classified, right shoulder Plan: 1. Will continue PT today. Sling at all times nonweightbearing to right upper extremity 2. plan for discharge this afternoon following PT 3. Patient will follow up for post op appointment on in 2 weeks as previously scheduled 4. Patient has outpatient PT appointment 2 weeks postoperatively as previously scheduled 5. WBC 10.6 acute reactive leukocytosis: secondary to pre operative decadron. no acute systemic signs of infection. will monitor, and likely self resolve. 6. H/H 13.5/39.7: post operavtive anemia secondary to acute blood loss intraoperatively. Patient is asymptomatic at this time. No intraoperative complications. will continue to monitor. no acute interventions. 7. DVT prophylaxis : Aspirin 81 mg twice daily x 2 weeks 8. Pain control: patient instructed to take tylenol 500mg 2 tablets TID. and oxycodone 1-2 tablets every 4-6 hours only as needed for pain control. 9. Patient also given a prescription of meloxicam, senna 10. ok to remove post op dressing. post op day 5 (2) Status post reverse total arthroplasty of right shoulder: Status: Acute Code(s): Z96.611 - Presence of right artificial shoulder joint Medications at Discharge Home Medications aspirin 81 mg tablet,delayed release 81 mg PO DAILY@0800 06/09/13 Held on 12/24/24. Instructions: Resume on 01/07/25. metoprolol tartrate 25 mg tablet 25 mg PO BID 05/10/17 metformin 500 mg tablet 500 mg PO BID 05/11/17 ezetimibe 10 mg tablet 10 mg PO DAILY #180 tabs 10/02/17 cholecalciferol (vitamin D3) 25 mcg (1,000 unit) tablet 4,000 unit PO DAILY 01/21/20 cyanocobalamin (vitamin B-12) 1,000 mcg capsule 500 mcg PO DAILY 01/21/20 alirocumab 75 mg/mL subcutaneous pen injector (Praluent Pen) 150 mg subcut Q2W 03/26/21 losartan 100 mg tablet 100 mg PO QHS 02/08/22 allopurinol 300 mg tablet 300 mg PO BID 04/04/24 acetaminophen 500 mg tablet 1,000 mg (2 x 500 mg) PO Q8 #180 tabs 12/24/24 aspirin 81 mg tablet,delayed release 81 mg PO BID 2 weeks #28 tabs 12/24/24 meloxicam 7.5 mg tablet 7.5 mg PO BID #60 tabs 12/24/24 oxycodone 5 mg tablet 5 - 10 mg (1 - 2 x 5 mg) PO .q4-6hrs prn PRN Pain Score 4- 10 7 days #30 tabs 12/24/24 sennosides 8.6 mg-docusate sodium 50 mg tablet (Stimulant Laxative Plus) 2 tab PO BID #14 tabs 12/24/24 Hospital Course Operations - (Right reverse total shoulder arthroplasty) Summary of Care Provided Hospital Course: Patient is s/p right reverse total shoulder arthroplasty with Dr. Yi 12/23/2024. Patient resting comfortably in bed. Rates pain 2/10. States taking Tylenol and oxycodone as needed and ice help to relieve pain. Patient has been up with therapy. Sling at all times to right upper extremity nonweightbearing to right upper extremity.. Afebrile, no chest pain, shortness of breath, negative calf pain/ erythema, and no other signs of DVT. Physical Exam Narrative Patient resting comfortably in bed No signs of acute distress Satting well on room air Sling in place to right upper extremity Limb is warm to touch, Sensation intact throughout entire right upper extremity Radial pulses bounding Dressing [with small amount of sanguinous draining at the most superior aspect] Calf nontender to palpation, no erythema, no edema. Negative Homans Weight / BMI Weight Weight: 90 kg Body Mass Index (BMI) 26.9 ABG / Lab / Microbiology Data 12/24/24 04:05 12/24/24 04:05 Laboratory: Laboratory Results - last 24 hr 12/23/24 14:16: POC Glucose 166 H 12/23/24 21:53: POC Glucose 272 H 12/24/24 04:05: WBC 10.6, RBC 4.56 L, Hgb 13.5, Hct 39.7 L, MCV 87.1, MCH 29.6, MCHC 34.0, RDW Std Deviation 41.7, RDW Coeff of Destiny 13.4, Plt Count 174, MPV 11.7, Sodium 135, Potassium 4.4, Chloride 100, Carbon Dioxide 19.6 L, Anion Gap 15, BUN 20 H, Creatinine 1.01, Estim Creat Clear Calc 68.29, Est GFR (MDRD) Non- Af 77, BUN/Creatinine Ratio 19.8, Glucose 175 H, Calcium 9.2 12/24/24 06:07: POC Glucose 188 H 12/24/24 11:22: POC Glucose 306 H Radiography Diagnostic Testing: Radiology Impression Shoulder X-Ray 12/23/24 13:40 IMPRESSION: Right shoulder reverse arthroplasty. Reading Location: [place] [address] D/C Instructions Discharge Activity: May Shower Weight Bearing Status: No weight bearing (right upper extremity . sling at all times) Additional Activity Instructions: sling at all times Call your doctor if your incision/area has: Continuous Slow Oozing, Sudden Increased Bleeding, Increased Pain/ Swelling, Increased Redness, Foul Smelling Discharge and Swelling at the incision site Call your doctor if you observe: Fever of 101 or Higher, Inability to urinate, Inability to have a bowel movement, Shortness of breath, Dizziness, Chest pain, Calf discomfort and Uncontrolled pain Remove Dressing in: 1 week Cleanse incision/area with: Soap & Water and Keep Dressing Clean & Dry DC O2, CPAP, BIPAP Needs Home O2 Discharge instructions: No DC home with Oxygen: No When: [facility] orthopaedics in 2 weeks as previously scheduled Meaningful Use Info Meaningful Use Meaningful Use Diagnoses (Choose all that apply): None applicable Discharge Plan Admission Admit Date/Time: 12/23/24 13:06 Attending Provider: Major Yi Primary Care Provider: Miguelito Saul Consulting Providers: Kotsonis,Major F Discharge Orders/Prescriptions Prescriptions: New acetaminophen 500 mg Tablet 1,000 mg PO Q8 Qty: 180 0RF aspirin 81 mg Tablet,Delayed Release (Dr/Ec) 81 mg PO BID 14 Days Qty: 28 0RF meloxicam 7.5 mg Tablet 7.5 mg PO BID Qty: 60 0RF oxycodone 5 mg Tablet 5 - 10 mg PO .q4-6hrs prn PRN (Reason: Pain Score 4-10) 7 Days Qty: 30 0RF sennosides-docusate sodium [Stimulant Laxative Plus] 8.6-50 mg Tablet 2 tab PO BID Qty: 14 0RF Continued metformin 500 mg tablet 500 mg PO BID metoprolol tartrate 25 mg tablet 25 mg PO BID cholecalciferol (vitamin D3) 25 mcg (1,000 unit) tablet 4,000 unit PO DAILY cyanocobalamin (vitamin B-12) 1,000 mcg capsule 500 mcg PO DAILY losartan 100 mg tablet 100 mg PO QHS allopurinol 300 mg tablet 300 mg PO BID ezetimibe 10 mg tablet 10 mg PO DAILY Qty: 180 3RF Praluent Pen 75 mg/mL pen injector 150 mg subcut Q2W Rx Instructions: inject into abdomen, thigh, or upper arm (deltoid muscle); [facility] aspirin 81 MG tablet 81 mg PO DAILY@0800 Hold Instructions: Resume on 01/07/25. Referrals / Follow Up: Miguelito Saul MD [Primary Care Provider] - Disposition Disposition (needs filled in before D/C Order can be placed): Home, Self Care
--- NOTE | 2024-12-24 11:48 | CASEMGMT ---
Noted no OT recommended. Pt has KEN, aki, shower chair. Plan for dc this date.
== END 2024-12-24 12:38 | disposition home or self-care (01) ==
LOC: SDC 14:21 → MS3 14:21
PROVIDERS: Anesthesiology; Admitting Provider Student in an Organized Health Care Education/Training Program; PCP Family Medicine; Referring Provider Student in an Organized Health Care Education/Training Program; Visit Provider Student in an Organized Health Care Education/Training Program
PROC: (CPT 23472; principal; 2024-12-23 11:30)
DX: M75.101 Unspecified rotator cuff tear or rupture of right shoulder, not specified as traumatic (principal); E11.9 Type 2 diabetes mellitus without complications; Z79.84 Long term (current) use of oral hypoglycemic drugs; E78.00 Pure hypercholesterolemia, unspecified; I25.10 Atherosclerotic heart disease of native coronary artery without angina pectoris; I10 Essential (primary) hypertension; Z79.899 Other long term (current) drug therapy; I25.2 Old myocardial infarction; R01.1 Cardiac murmur, unspecified; M10.9 Gout, unspecified; Z79.82 Long term (current) use of aspirin; M12.811 Other specific arthropathies, not elsewhere classified, right shoulder
CPT/HCPCS: 23472; 36415; 73030; 80048; 82962; 83735; 85027; 93005; 94668; 96361; 96365; 96366; 97166; 99221; C1776; A4216; G0378; J2405

== ENCOUNTER → 2025-01-06 | Outpatient (CLI) | payer MEDICARE, OTHER, SELFPAY ==
[2025-01-06 18:19] LABS: Creatinine, Urine (random) 68.50 mg/dL (39.00-259.00); Microalbumin,Random Urine 221.0 mg/L (<20 mg/L)
== END | disposition home or self-care (01) ==
LOC: LABSPEC 14:33
PROVIDERS: PCP Family Medicine; Visit Provider Family Medicine
DX: E11.9 Type 2 diabetes mellitus without complications (principal)
CPT/HCPCS: 82043; 82570

== ENCOUNTER → 2025-03-18 | Outpatient (CLI) | payer MEDICARE, OTHER, SELFPAY ==
[2025-03-18 15:10] LABS: Hematocrit 42.2 % (40-54); Hemoglobin 13.6 g/dL (13.0-16.5); Immature Granulocytes Count 0.020 X10^3/uL (0.0-0.0); Mean Corp Hgb Conc 32.2 g/dL (32-36); Mean Corpuscular Volume 87.0 fL (80-94); Mean Platelet Vol. 10.4 fl (6.2-12.0); NRBC Flagged by Analyzer 0 % (0-5); Platelet Count 282 K/mm3 (150-450); RBC Distribution Width CV 13.5 % (11.6-14.6); RBC Distribution Width SD 42.8 fl (35.1-43.9); Red Blood Count 4.85 M/mm3 (4.6-6.2); White Blood Count 5.1 K/mm3 (4.4-11.0)
[2025-03-18 15:47] LABS: CRP 58.80 mg/L (0.0-3.0)
== END | disposition home or self-care (01) ==
LOC: LAB 14:00
PROVIDERS: PCP Family Medicine; Referring Provider Student in an Organized Health Care Education/Training Program; Visit Provider Student in an Organized Health Care Education/Training Program
DX: M12.511 Traumatic arthropathy, right shoulder (principal); Z47.1 Aftercare following joint replacement surgery; Z96.611 Presence of right artificial shoulder joint
CPT/HCPCS: 36415; 85025; 85652; 86140

== ENCOUNTER → 2025-03-24 | Outpatient (CLI) | payer MEDICARE, OTHER, SELFPAY ==
[2025-03-24 14:25] LABS: AUTO B FLUID DILUENT BKGD CT WBC <0.1 RBC <0.01 (W<.1,R<.01); Source- Body Fluid SYNOVIAL
[2025-03-24 14:26] LABS: Appearance /Synovial Fluid Cloudy (CLEAR); Color / Synovial Fluid YELLOW (Pale Yellow); Source / Synovial Fluid RT SHOULDER; Viscosity / Synovial Fluid Mod. Viscous (HIGH)
[2025-03-24 14:27] LABS: RBC /Synovial Fluid 0.015 10^6/uL (0)
[2025-03-24 14:28] LABS: Monocyte /Synovial Fluid 5 %
[2025-03-24 14:30] LABS: Body Fluid QC Type(s) BF2Q; Other Cell /Synovial Fluid 5 %
[2025-03-24 14:33] LABS: CRYSTALS, BODY FLUID NO CRYSTALS SEEN
== END | disposition home or self-care (01) ==
LOC: LABSPEC 11:07
PROVIDERS: PCP Family Medicine; Referring Provider Student in an Organized Health Care Education/Training Program; Visit Provider Student in an Organized Health Care Education/Training Program
DX: M12.511 Traumatic arthropathy, right shoulder (principal); Z96.611 Presence of right artificial shoulder joint
CPT/HCPCS: 87070; 87075; 87205; 89050; 89051; 89060

== ENCOUNTER 2025-03-27 16:59 | Inpatient (IN) | payer MEDICARE, OTHER, SELFPAY ==
--- NOTE | 2025-03-25 16:14 | PAT.ANE_ITS ---
Pre-Assessment Diagnosis/Proposed Procedure Planned Operative Procedure(s): RIGHT REVERSE TOTAL SHOULDER EXPANATION WITH PLACEMENT OF ANTIBIOTIC SPACER AND IRRIGATION AND DEBRIDEMENT Anesthesia History Anesthesia History - dianetic counselor: Anesthesia History - dianetic counselor Hx Hospitalization Yes: SHOULDER 03/25/25 13:04 Any Problems With Anesthesia No 03/25/25 13:04 Cholinesterase deficiency No 03/25/25 13:04 You/Your Family Experience No 03/25/25 13:04 fever (hyperthermia) with Relationship Recent Exposure to Contagious No 12/23/24 10:31 Disease Does patient have nerve No 03/25/25 13:04 stimulator Patient instructed to have device shut off --Does patient have Pacemaker or ICD? When Was Last Pacemaker Check QUESTION #4 FULL TEXT: You/Your Family Experience fever (hyperthermia) with Anesthesia Last Oral Intake Last Oral intake: Last Oral Intake NPO since Meds taken in AM with sips of water? 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 - dianetic counselor: PONV - dianetic counselor Female No 03/25/25 13:04 HX of Motion Sickness No 03/25/25 13:04 HX of N/V After Surgery No 03/25/25 13:04 Non-Smoker Yes 03/25/25 13:04 Duration of Surgery greater Yes 03/25/25 13:04 than 60 minutes Number of Risk Factors 2 03/25/25 13:04 PONV Score Moderate Risk 03/25/25 13:04 Height & Weight Height & Weight: Anesthesia: Height & Weight Height 6 ft 03/25/25 08:44 Weight: 86.183 kg 03/25/25 08:44 Respiratory Assessment Respiratory Assessment - dianetic counselor: Respiratory Tract Infection Hx - dianetic counselor Hx Respiratory Tract Infection No 03/25/25 13:04 STOP Sleep Apnea STOP Sleep Apnea - dianetic counselor: STOP Sleep Apnea - dianetic counselor Hx Hypertension Yes 03/25/25 13:04 Hx Sleep Apnea No 03/25/25 13:04 CPAP BIPAP Do you snore loudly (louder No 03/25/25 13:04 than talking or can be heard Do you often feel tired/ No 03/25/25 13:04 fatigued/ sleepy during daytime? Has anyone observed you stop No 03/25/25 13:04 breathing during sleep? STOP Results Negative 03/25/25 13:04 QUESTION #5 FULL TEXT : Do you snore loudly (louder than talking or can be heard through closed doors)? Tobacco Use History Tobacco Use History - dianetic counselor: Tobacco Use History - dianetic counselor Tobacco Use Smoking Status Never smoker 03/25/25 13:04 Hx Tobacco Use No 03/25/25 13:04 Years Smoking Packs Smoked per Day Smoking Cessation Date was within the last 15 years Hx Smoking Cessation Date Hx Smoking Cessation Counseling Hematologic Medial History Hematologic Hx - dianetic counselor: Hematologic Medical Hx - examination scorer Hx of Blood Transfusion No 03/25/25 13:04 Hx of Transfusion in last 3 No 03/25/25 13:04 Months Date of Last Transfusion (if within last 3 months) Ever experience any problems No 03/25/25 13:04 with transfusion(s)? Specify any problems Hx of Preganancy in last 3 N/A 03/25/25 13:04 Months Nurse Filling Out Transfusion [facility] 03/25/25 13:04 & Questions: Date: 03/25/25 03/25/25 13:04 Time: 13:07 03/25/25 13:04 Patient unable to answer at this time (ie. confused, unrespo /Reproduction History /Reproductive History - dianetic counselor: /Reproductive Hx- dianetic counselor Hx Now Gestational Age (in weeks): EDC: Hx Hx Para Hx Section SAB No 12/03/24 10:59 Does the father of the baby or his family experience fever w Father of the baby Malignant Hypertension history comment Active Medications Active Medications: Current Medications Generic Name Dose Route Start Last Admin Trade Name Freq PRN Reason Stop Dose Admin Acetaminophen 1,000 mg 03/26/25 14:30 Acetaminophen 500 Mg Tablet PO 03/26/25 14:31 PREOP ONE Cefazolin Sodium 1 gm 03/26/25 14:30 Cefazolin 1 Gm Powder OPERA.SITE 03/26/25 14:31 INTRAOP ONE Gabapentin 600 mg 03/26/25 14:30 Gabapentin 600 Mg Tablet PO 03/26/25 14:31 PREOP ONE Cefazolin Sodium 2 gm/ Sodium 110 mls @ 150 mls/hr 03/26/25 14:30 Chloride IV 03/26/25 15:13 INTRAOP ONE Tranexamic Acid 1,000 mg/ 110 mls @ 660 mls/hr 03/26/25 14:30 Sodium Chloride IV 03/26/25 14:39 INTRAOP ONE Tranexamic Acid 1,000 mg/ 110 mls @ 660 mls/hr 03/26/25 15:30 Sodium Chloride IV 03/26/25 15:39 INTRAOP ONE Lactated Ringer's 1,000 mls @ 125 mls/hr 03/26/25 15:30 IV 03/26/25 23:29 .Q8H ALE Vancomycin HCl 1,250 mg/ 275 mls @ 167 mls/hr 03/26/25 14:30 Sodium Chloride IV 03/26/25 16:08 INTRAOP ONE Insulin Human Lispro 1 - 6 unit 03/26/25 14:30 Insulin Lispro 100 Unit/Ml Insuln.Pen SC 03/26/25 20:30 Q4H PRN PRN BG>/= 180, SEE PROTOCOL Protocol Tobramycin Sulfate 2.4 gm 03/26/25 14:30 Tobramycin 2.4 Gm Powder TOPICAL 03/26/25 14:31 INTRAOP ONE Vancomycin HCl 2,000 mg 03/26/25 14:30 Vancomycin 2 Gm Powder OPERA.SITE 03/26/25 14:31 INTRAOP ONE PFSH Medical History Wears hearing aid Wears glasses Wears partial dentures History of steroid therapy Arthritis Dietary restriction Non-smoker History of echocardiogram History of stress test Cardiology follow-up encounter Diabetes Myocardial infarct Hypertension Osteoarthritis Gout Atherosclerosis of coronary artery of [place] heart without angina pectoris Hyperlipidemia Home Medications ?Medication ?Instructions ?Recorded ?Last Taken ?Type aspirin 81 mg tablet,delayed 81 mg PO DAILY@0800 HEART 06/09/13 12/17/24 History release metoprolol tartrate 25 mg tablet 25 mg PO BID HYPERTEN FRANCISCO 05/10/17 12/23/24 06:26 History metformin 500 mg tablet 500 mg PO BID DIABETES 05/1112/22/24 History ezetimibe 10 mg tablet 10 mg PO DAILY CHOLESTEROL # 180 10/02/17 12/22/24 Rx tabs cholecalciferol (vitamin D3) 25 4,000 unit PO DAILY VENTURA PPLEMENT 01/21/20 12/17/24 History mcg (1,000 unit) tablet cyanocobalamin (vitamin B-12) 500 mcg PO DAILY SUPPLEM ENT 01/21/20 12/17/24 History 1,000 mcg capsule alirocumab 75 mg/mL subcutaneous 150 mg subcut Q2W LDL 03/26/21 12/15/24 History pen injector (Praluent Pen) losartan 100 mg tablet 100 mg PO QHS HYPERTENSION 1 12/22/24 History allopurinol 300 mg tablet 300 mg PO BID GOUT 04/04/24 12/22/24 History Allergy/AdvReac Type Severity Reaction Status Date / Time [id number] Reductase AdvReac Mild myalgias Verified 03/25/25 12:59 Inhibitor (Rzenyak-Myb-Mog Reductase Inhibitor) Family History Brother CAD (coronary artery disease) Hx of CABG Surgical History Hx of colonoscopy Hx of total knee arthroplasty History of coronary artery stent placement History of left knee replacement (03/20/19) History of right knee surgery History of left knee surgery History of repair of rotator cuff Social History Smoking Status: Never smoker alcohol intake: never substance use type: does not use caffeine: Yes Type: carbonated beverages Number of servings: 1 Audit: Pertinent Findings Pertinent Findings EKG Perinent findings: EKG November 27, 2024. Sinus bradycardia with first-degree AV block. Incomplete right bundle branch block. Stress test pertinent findings: Stress test 03/14/2023. The gated ejection fraction is 65%. Normal exercise myocardial perfusion stress test at a moderate workload. Preserved ejection fraction. Echo (EF%) pertinent findings: Echo 02/02/2021. Normal LV size. The estimated ejection fraction is 60%. Stage I diastolic dysfunction. Recommendation Anesthesia Recommendation Anesthesia recommendation: OPTIMIZED for anesthesia
--- OUTSIDE RECORDS SUMMARY | 2025-03-26 12:12 | XMS RPT_ITS | CCD ---
Author Organization [facility] Care Team Providers Care Automation Sales Manager Name Role Phone FERMIN Blunt, Bailey Keller Unavailable Georgette Oliva Unavailable Unavailable Georgette Tabor Unavailable Unavailable Dr. Armond Saul Primary Care Provider [phone] Dr. Armond Saul Referring Provider Dr. Nathan Purcell Attending Provider [phone] Doyle Sandoval Attending Provider [phone] Collette BIOLOGY ADJUNCT INSTRUCTOR, BIOLOGY ADJUNCT INSTRUCTOR-Luna Grant Attending Provider Dr. Armond Saul Primary Care Provider [phone] Dr. Armond Saul Referring Provider Víctor BIOLOGY ADJUNCT INSTRUCTOR, BIOLOGY ADJUNCT INSTRUCTOR-Luna Solano Attending Provider Dr. Nathan Purcell Attending Provider [phone] Nathan Purcell Referring Provider [phone] Nathan Purcell Other Provider Collette BIOLOGY ADJUNCT INSTRUCTOR, KHAI-Luna Grant Attending Provider Dr. Matt Saul Primary Care Provider Dr. Matt Saul Referring Provider EDILSON Driscoll Attending Provider Matt Saul MD Primary Care Provider MATT SAUL Primary Care MADDIE Lind Attending Unavailable MATT SAUL Referring MATT Pace Primary Care UnavailDEMETRI Hudson Attending Unavailable MADDIE BERNSTEIN Referring Unavailable MATT SAUL Primary Care Unavailabl MADDIE Guerrero Attending Unavailable Kg LAZO, Dr. Farley Primary Care Provider Kg LAZO, Dr. Farley Referring Provider Jazzy LAZO, Dr. Evans Attending Provider [phone] Kg LAZO, Dr. Farley Attending Provider [phone] Kg LAZO, Dr. Farley Primary Care Provider Kassidy WILHELM, Dr. Gonsalves Attending Provider Kassidy WILHELM, Dr. Gonsalves Referring Provider Matilda LAZO, Dr. Amezcua Attending Provider Spianca WILHELM, Dr. Gonsalves Admit Provider Gerardo LAZO, Dr. Major Nieves Other Provider Kassidy WILHELM, Dr. Gonsalves Other Provider Rd WILHELM, Dr. Hamm Attending Provider Rd WILHELM, Dr. Hamm Other Provider Gerardo LAZO, Dr. Major Nieves Attending Provider Kg LAZO, Dr. Farley Primary Care Physicia n Kassidy WILHELM, Dr. Gonsalves Attending Physician Dr. Seven Grey MD Attending Physician Kassidy WILHELM, Dr. Gonsalves Admitting Physician Gerardo LAZO, Dr. Major Nieves Nurse Practitioner Kassidy WILHELM, Dr. Gonsalves Nurse Practitioner Rd WILHELM, Dr. Hamm Attending Physician Rd WILHELM, Dr. Hamm Nurse Practitioner Gerardo LAZO, Dr. Major Nieves Attending Physician Dr. Matt Saul MD Attending Physician Oneyda Spring Attending Physician [phone] Oneyda Spring Referring Provider Yang Romero Attending Unavailable Douglaswyandanch, Matt Referring Unavailable [facility] Primary Care Unavailable Spittle, Major Attending Unavailable Spittle, Major Referring Unavailable Spittle, Major Admitting Unavailable [facility] Primary Care Unavailable Kotsonis, Major F Consulting Unavailable Spittle, Major Referring Unavailable Spittle, Major Attending [facility]available [facility] Unavailable Spittle, Major Referring Unavailable Spittle, Major Attending Unavailable [facility] Care Unavailable Oneyda Solano Attending Unavailable Oneyda Solano Referring [facility]available [facility] Primary Care Unavailable Matt Saul Attending Unavailable [facility] Referring Unavailable [facility], Matt Attending Unavailable [facility] Primary Care Unavailable Spittle, Major Referring Unavailable Seven Grey Attending Unavailable [facility] Primary Care Unavailable Spittle, Major Referring Unavailable Hansel Sultana Attending Unavailable Spittle, Major Admitting Unavailable Hansel Sultana Consulting Unavailable [facility] Care Unavailable Spittle, Major Consulting Unavailable Kotsonis, Major F Consulting Unavailable Kotsonis, Major F Attending Unavailable Nathan Purcell Attending Unavailable [facility] Care Unavailable [facility] Referring Unavailable Allergies Allergy Classification Reported Allergen(s) Allergy Type Date of Onset Reaction(s) Facility (3 sources) atorvastatin drug allergy 5 myalgia [facility] Work Phone: (3 sources) simvastatin drug allergy 3 myalgias [facility] Work Phone: (3 sources) CRESTOR, PRAVACHOL drug allergy 3 myalgias [facility] Work Phone: (7 sources) Gwrpker-Pkq-Eyw Reductase Inhibitor Propensity to adverse reactions 2 myalgias [facility] Comment on above: Lipitor, Crestor, Zo cor (5 sources) Simvastatin; Translations: [SIMVASTATIN] Drug Allergy 7 Intolerance [facility] Work Phone: (1 source) OTHER; Translations: [OTHER] Propensity to adverse reactions (disorder) 7 [facility] Repository (1 source) Peoekju-Qan-Kqy Reductase Inhibitor Drug allergy (disorder) 5 [facility] Repository Medications Current Medications Medication Drug Class(es) Dates Sig (Normalized) Sig (Original) acetaminophen 500 mg oral tablet (2 sources) Start: 12-24-2024 take 2 tablets by mouth every eight hours 1 ml alirocumab 150 mg/ml auto-injector (11 sources) PCSK9 Inhibitor Start: 12-05-2023 alirocumab (PRALUENT) 150 mg/mL pen Inject 150 mg subcutaneously. 12/05/2023 Active Start: 03-26-2021 allopurinol 300 mg oral tablet (14 sources) Xanthine Oxidase Inhibitor Start: 04-04-2024 take 1 tablet by mouth twice daily Start: 04-04-2024 Allopurinol 30 0 mg tablet Active 400 mg PO DAILY April 04, 2024 3:20pm Start: 02-08-2023 End: 04-04-2024 take 1 tablet by mouth once daily Allopurinol 300 mg tablet Discontinued 300 mg PO DAILY February 08, 2023 12:00am April 04, 2024 3:20pm take 4 tablets by mo uth once daily allopurinol (ZYLOPRIM) 100 mg tablet Take 400 mg by mouth once daily. Active aspirin 81 mg delayed release oral tablet (19 sources) Nonsteroidal Anti-inflammatory Drug Start: 12-24-2024 take 1 tablet by mouth twice daily Start: 03-21-2013 take 1 tablet by keyona th once daily Start: 03-21-2013 take 1 tablet by keyona th once daily ASPIRIN 81 MG TABS One tablet by mouth daily ASPIRIN [id number] Shruthi Fajardo RN Start: 06-11-2012 take 1 tablet by keyona th once daily at mealtime Aspirin 81 mg Tab Indications: Coronary atherosclerosis of unspecified type of vessel, [place] or graft Take 1 tablet by mouth once daily. Take with food. 06/11/2012 Active cholecalciferol 0.025 mg ora l tablet (14 sources) Vitamin D Start: 01-21-2020 take 1 tablet by keyona th once daily Start: 01-21-2020 take 2000 [IU] by mo [facility] once daily Cholecalciferol (Vitamin D3) Active 2000 UNIT PO DAILY January 21, 2020 1:54pm Start: 06-27-2019 End: 01-21-2020 take 1 tablet by mouth once daily Cholecalciferol (Vitamin D3) 25 mcg (1,000 unit) tablet Discontinued 25 ug PO DAILY June 27, 2019 12:00am January 21, 2020 2:55pm clotrimazole 10 mg/ml topical cream (4 sources) Azole Antifungal Start: 09-01-2023 clotrimazole (LOTRIMIN) 1 % cream Apply to affected area. 09/01/2023 Active docusate sodium 50 mg / sennosides, halfway 8.6 mg oral tablet (2 sources) Start: 12-24-2024 fluticasone propionate 0.05 mg/actuat metered dose nasal spray (4 sources) Corticosteroid Start: 05-04-2023 fluticasone (FLONASE) 50 mcg/actuation nasal spray Use 1 [place] in the nose once daily. 05/04/2023 Active losartan potassium 100 mg oral tablet (11 sources) Angiotensin 2 Receptor Rosalba Start: 02-08-2022 take 1 tablet by mouth at bedtime meloxicam 7.5 mg oral tablet (2 sources) Nonsteroidal Anti-inflammatory Drug Start: 12-24-2024 take 1 tablet by mouth twice daily metFORMIN hydrochloride 500 mg oral tablet (11 sources) Biguanide Start: 05-11-2017 take 1 tablet by mouth twice daily Start: 05-11-2017 take 500 mg by mouth once mami y Metformin Active 500 MG PO daily May 11, 2017 12:00am METFORMIN HCL (M ETFORMIN ORAL) Take by mouth. Active metoprolol tartrate 25 mg oral tablet (20 sources) beta-Adrenergic Rosalba Start: 05-10-2017 Metopr olol Tartrate 25 mg tablet Active 12.5 mg PO TWICE A DAY May 10, 2017 1:00am Start: 05-10-2017 take 12.5 mg by mout h twice daily Metoprolol Tartrate Active 12.5 MG PO TWICE A DAY May 10, 2017 1:00am Start: 03-10-2014 take 1 tablet by keyona th twice daily Start: 06-09-2013 End: 05-10-2017 take 12.5 mg by mouth once daily Lopressor Discontinued 12.5 mg PO DAILY June 09, 2013 1:00am May 10, 2017 9:13pm Start: 06-09-2013 End: 05-10-2017 take 12.5 mg by mouth once daily Lopressor Discontinued 12.5 MG PO DAILY June 09, 2013 1:00am May 10, 2017 9:13pm Start: 06-09-2013 End: 05-10-2017 take 12.5 mg by mouth once daily Lopressor Discontinued 12.5 MG PO DAILY June 09, 2013 12:00am May 10, 2017 8:13pm Start: 03-21-2013 take 0.5 tablet by m outh twice daily METOPROLOL TARTRATE 25 MG TABS One-half tablet by mouth twice daily METOPROLOL TARTRATE [id number] Mari Reyes RN oxyCODONE hydrochloride 5 mg oral tablet (2 sources) Opioid Agonist Start: 12-24-2024 take 5-10 mg by mouth every four to six hours as needed for pain polyethylene glycol 3350 886645 mg / potassium chloride 2970 mg / sodium bicarbonate 6740 mg / sodium chloride 5860 mg / sodium sulfate 11442 mg powder for oral solution (1 source) Osmotic Laxative Start: 02-16-2024 End: 02-16-2024 peg 3350-Electrolytes (GOLYTELY) 236-22.74-6.74 -5.86 gram suspension Indications: History of colonic polyps , Screen for colon cancer Take 4,000 mL by mouth one time only for 1 dose. Refer to printed prep instructions from your provider. 4000 mL 02/16/2024 02/16/2024 Active vitamin b12 0.5 mg oral tablet (11 sources) Vitamin B12 Start: 12-04-2023 take 1 tablet by mouth once daily cyanocobalamin (VITAMIN B-12) 500 mcg tablet Take 1 tablet by mouth once daily. 12/04/2023 Active Start: 01-21-2020 Start: 01-21-2020 take 500 ug by mouth once daily Cyanocobalamin (Vitamin B-12) Active 500 MCG PO DAILY January 21, 2020 12:00am Start: 01-21-2020 take 1000 ug by mout h once daily Cyanocobalamin (Vitamin B-12) Active 1000 MCG PO DAILY January 20, 2020 11:00pm Completed/Discontinued Medications Medication Drug Class(es) Dates Sig (Normalized) Sig (Original) Antiarthritic Combination No.2 (3 sources) Start: 06-09-2013 End: 05-10-2017 take 900 mg by mouth twice daily Antiarthritic Combination No.2 Discontinued 900 MG PO TWICE A DAY June 09, 2013 1:00am May 10, 2017 9:13pm Start: 06-09-2013 End: 05-10-2017 take 900 mg by mouth twice daily Antiarthritic Combination No.2 Discontinued 900 MG PO TWICE A DAY June 09, 2013 12:00am May 10, 2017 8:13pm Antiarthritic Combination No.2 900 MG tablet (4 sources) Start: 06-09-2013 End: 05-10-2017 take 1 tablet by mouth twice daily Antiarthritic Combination No.2 900 MG tablet Discontinued 900 mg PO TWICE A DAY June 09, 2013 1:00am May 10, 2017 9:13pm benzonatate 100 mg oral capsule (5 sources) Non-narcotic Antitussive Start: 05-17-2023 End: 08-17-2023 take 2 capsules by mouth three times daily as needed for cough Benzonatate 100 mg capsule Discontinued 200 mg PO THREE TIMES A DAY as needed for cough May 17, 2023 1:00am August 17, 2023 10:25pm Start: 05-17-2023 End: 08-17-2023 take 200 mg by mouth three times daily Benzonatate Discontinued 200 MG PO THREE TIMES A DAY May 17, 2023 1:00am August 17, 2023 10:25pm calcium chloride 0.0014 meq/ml / potassium chloride 0.004 meq/ml / sodium chloride 0.103 meq/ml / sodium lactate 0.028 meq/ml injectable solution (1 source) Start: 02-19-2024 End: 02-19-2024 take 30 mL intravenously every hour 30 mL/hr, INTRAVENOUS, CONTINUOUS, Starting on Mon02/19/24 at 1100, Until Mon02/19/24 at 1207, Preprocedure clopidogrel 75 mg oral tablet (6 sources) P2Y12 Platelet Inhibitor Start: 03-21-2013 End: 03-25-2013 take 1 tablet by mouth once daily PLAVIX 75 MG TABS One tablet by mouth daily CLOPIDOGREL BISULFATE [id number] Demetri Patrick MD [place] 7-Pds-Het-Fish Oil (7 sources) Start: 02-08-2022 End: 04-04-2024 [place] 2-Rmr-Nts-Fish Oil (Fish Oil) 300-1,000 mg capsule Discontinued 2 NMA PO TWICE A DAY February 08, 2022 12:00am April 04, 2024 3:20pm Start: 02-08-2022 take 300-1000 mg by mouth twice daily [place] 7-Ibg-Twr-Fish Oil (Fish Oil) 300-1,000 mg capsule Active 2 CAP PO TWICE A DAY February 08, 2022 12:00am Start: 02-08-2022 take 300-1000 mg by mouth once daily [place] 5-Oau-Jfd-Fish Oil (Fish Oil) 300-1,000 mg capsule Active 1 CAP PO DAILY February 07, 2022 11:00pm ezetimibe 10 mg oral tablet (20 sources) Dietary Cholesterol Absorption Inhibitor Start: 03-19-2010 End: 10-02-2017 take 1 tablet by mouth once daily Ezetimibe 10 MG tablet Discontinued 10 mg PO DAILY 90 3 April 04, 2017 1:50pm October 02, 2017 4:13pm fenofibrate 145 mg oral tablet (20 sources) Peroxisome Proliferator Receptor alpha Agonist Start: 02-25-2010 End: 02-16-2024 take 1 tablet by mouth once daily Fenofibrate Nanocrystallized 145 mg tablet Discontinued 145 mg PO daily 90 3 October 02, 2017 12:00am March 26, 2021 10:14am 1 ml fentaNYL 0.05 mg/ml injection (1 source) Opioid Agonist Start: 02-19-2024 End: 02-19-2024 25-100 mcg, INTRAVENOUS, DIRECTED, Starting on Mon02/19/24 at 1200, Until Mon02/19/24 at 1559, DOSING DIRECTED BY PHYSICIAN FOR PROCEDURAL SEDATION ONLY, Intraprocedure fish oil (12 sources) Start: 06-10-2013 take 1 tablet by mouth once daily FISH OIL CAPS One tablet by mouth daily OMEGA-3 FATTY ACIDS CAPS [id number] Demetri Patrick MD Start: 06-10-2013 End: 03-31-2015 take 1 tablet by mouth once daily FISH OIL CAPS One tablet by mouth daily [place]MEGA-3 FATTY ACIDS CAPS [id number] Demetri Patrick MD Start: 03-21-2013 End: 03-25-2013 take 1 capsule by mouth once daily FISH OIL CAPS One capsule by mouth daily OMEGA-3 FATTY ACIDS CAPS [id number] Demetri Patrick MD Start: 03-21-2013 take 1 capsule by mo [facility] once daily FISH OIL CAPS One capsule by mouth daily OMEGA-3 FATTY ACIDS CAPS [id number] Shruthi Fajardo RN FLUoxetine 10 mg oral capsule (6 sources) Serotonin Reuptake Inhibitor Start: 03-21-2013 End: 03-25-2013 take 1 tablet by mouth once daily PROZAC 10 MG CAPS One tablet by mouth daily FLUOXETINE HCL [id number] Demetri Patrick MD Start: 03-21-2013 End: 03-25-2013 take 1 tablet by mouth once daily PROZAC 10 MG CAPS One tablet by mouth daily FLUOXETINE HCL [id number] Demetri Patrick MD gemfibrozil 600 mg oral tablet (7 sources) Peroxisome Proliferator Receptor alpha Agonist Start: 05-11-2017 End: 10-02-2017 Gemfibrozil 600 mg tablet Discontinued 600 mg PO TWICE A DAY 60 May 11, 2017 1:00am October 02, 2017 4:12pm administer 30 minutes before morning and evening meals hydroCHLOROthiazide 25 mg oral tablet (6 sources) Thiazide Diuretic Start: 02-08-2023 End: 12-03-2024 take 1 tablet by mouth once daily Hydrochlorothiazide 25 mg tablet Discontinued 25 mg PO DAILY February 08, 2023 12:00am December 03, 2024 10:56am lisinopril 5 mg oral tablet (11 sources) Angiotensin Converting Enzyme Inhibitor Start: 01-16-2007 End: 02-16-2024 take 1 tablet by mouth once daily Lisinopril 5 MG tablet Discontinued 5 mg PO DAILY June 09, 2013 1:00am February 08, 2022 1:54pm 5 ml midazolam 1 mg/ml injection (1 source) Benzodiazepine Start: 02-19-2024 End: 02-19-2024 1-5 mg, INTRAVENOUS, DIRECTED, Starting on Mon02/19/24 at 1200, Until Mon02/19/24 at 1559, DOSING DIRECTED BY PHYSICIAN FOR PROCEDURAL SEDATION ONLY, Intraprocedure [place]-3 Fatty Acids (3 sources) Start: 06-09-2013 End: 05-11-2017 take 300 mg by mouth once daily [place]-3 Fatty Acids Discontinued 300 MG PO DAILY June 09, 2013 1:00am May 11, 2017 5:09pm Start: 06-09-2013 End: 05-11-2017 take 300 mg by mouth once daily [place]-3 Fatty Acids Discontinued 300 MG PO DAILY June 09, 2013 12:00am May 11, 2017 4:09pm [place]-3 Fatty Acids 300 MG capsule (4 sources) Start: 06-09-2013 End: 05-11-2017 take 1 capsule by mouth once daily [place]-3 Fatty Acids 300 MG capsule Discontinued 300 mg PO DAILY June 09, 2013 1:00am May 11, 2017 5:09pm OMEGA-3 FATTY ACIDS/FISH OIL (FISH OIL EXTRA STRENGTH ORAL) (1 source) End: 02-16-2024 OMEGA-3 FATTY ACIDS/FISH OIL (FISH OIL EXTRA STRENGTH ORAL) Take by mouth. 02/16/2024 Discontinued (Discontinued by Patient) valACYclovir 1000 mg oral tablet (3 sources) Herpesvirus Nucleoside Analog DNA Polymerase Inhibitor, Herpes Simplex Virus Nucleoside Analog DNA Polymerase Inhibitor, Herpes Zoster Virus Nucleoside Analog DNA Polymerase Inhibitor Start: 07-09-2024 End: 12-03-2024 Valacyclovir 1 gram tablet Discontinued 1000 mg PO THREE TIMES A DAY July 09, 2024 12:00am December 03, 2024 10:55am Problems Active Problems Problem Classification Problem Date Documented Da te Episodic/Chronic Acute myocardial infarction (3 sources) ST elevation (STEMI) myocardial infarction of unspecified site; Translations: [ST elevation (STEMI) myocardial infarction of unspecified site] Onset: 06-10-2013 06-10-2013 Chronic Anxiety disorders (11 sources) Posttraumatic stress disorder; Translations: [Post-traumatic stress disorder, unspecified] Onset: 06-11-2012 01-28-2022 Chronic Cardiac dysrhythmias (5 sources) Palpitations; Translations: [Palpitations] 08-18-2023 Episodic Coronary atherosclerosis and other heart disease (20 sources) Old myocardial infarction; Translations: [Atherosclerotic heart disease of [place] coronary artery without angina pectoris] Onset: 12-24-2008 03-29-2016 Chronic Diabetes mellitus without complication (8 sources) Type 2 diabetes mellitus without complication; Translations: [Type 2 diabetes mellitus without complications] Onset: 01-16-2025 11-03-2017 Chronic Disorders of lipid metabolism (20 sources) Hyperlipidemia; Translations: [Hyperlipidemia, unspecified] Onset: 08-15-2006 03-21-2013 Chronic Comment on above: ON MED Essential hypertension (17 sources) Hypertensive disorder; Translations: [Essential hypertension] Onset: 03-21-2013 03-21-2013 Chronic Fluid and electrolyte disorders (5 sources) Hypokalemia; Translations: [Hypokalemia] 08-18-2023 Episodic Gout and other crystal arthropathies (4 sources) Gout; Translations: [Gout, unspecified] Onset: 08-15-2006 10-26-2023 Chronic Heart valve disorders (7 sources) Heart murmur; Translations: [Cardiac murmur, unspecified] 01-28-2022 Episodic Hyperplasia of prostate (4 sources) Benign prostatic hyperplasia; Translations: [Benign prostatic hyperplasia without lower urinary tract symptoms] Onset: 06-11-2012 06-11-2012 Chronic Influenza (6 sources) Influenza due to Influenza A virus; Translations: [Influenza due to other identified influenza virus with other respiratory manifestations] 05-17-2023 Episodic Nonspecific chest pain (11 sources) Chest pain; Translations: [Chest pain, unspecified] Onset: 12-29-2014 Resolved: 03-29-2016 03-29-2016 Episodic Occlusion or stenosis of precerebral arteries (7 sources) Left carotid artery stenosis; Translations: [Occlusion and stenosis of left carotid artery] 05-12-2022 Chronic Osteoarthritis (1 source) Primary osteoarthritis, right shoulder; Translations: [Primary osteoarthritis, right shoulder] Onset: 12-02-2024 Chronic Other and unspecified benign neoplasm (6 sources) History of polyp of colon; Translations: [History of colonic polyps] Onset: 02-19-2024 02-15-2024 Episodic Other circulatory disease (7 sources) Disorder of carotid artery; Translations: [Disorder of arteries and arterioles, unspecified] 05-12-2022 Chronic Other connective tissue disease (4 sources) History of reverse prosthetic total arthroplasty of right shoulder; Translations: [Presence of right artificial shoulder joint] 12-24-2024 Chronic Other connective tissue disease (4 sources) Rotator cuff arthropathy of right shoulder; Translations: [Unspecified rotator cuff tear or rupture of right shoulder, not specified as traumatic] 12-23-2024 Episodic Other connective tissue disease (2 sources) Unspecified rotator cuff tear or rupture of right shoulder, not specified as traumatic; Translations: [Unspecified rotator cuff tear or rupture of right shoulder, not specified as traumatic] Onset: 12-26-2024 Episodic Other non-traumatic joint disorders (1 source) Other specific arthropathies, not elsewhere classified, right shoulder; Translations: [Other specific arthropathies, not elsewhere classified, right shoulder] Onset: 12-26-2024 Chronic Other screening for suspected conditions (not mental disorders or infectious disease) (7 sources) Patient encounter status; Translations: [Encounter for screening for malignant neoplasm of colon] Onset: 02-25-2010 02-16-2024 Episodic Unclassified (1 source) Placement of stent in coronary artery ; Translations: [Presence of coronary angioplasty implant and graft] Onset: 03-21-2013 01-07-2015 Unclassified (6 sources) Long-term drug therapy; Translations: [Long-term (current) use of other medications] Onset: 03-31-2014 03-31-2014 Unclassified (1 source) History of colonic polyps; Translations: [History of colonic polyps] Onset: 02-19-2024 Past or Other Problems Problem Classification Problem Date Documented Da te Episodic/Chronic Coronary atherosclerosis and other heart disease (5 sources) Coronary angioplasty status; Translations: [Presence of coronary angioplasty implant and graft] Onset: 08-17-2006 03-21-2013 Episodic Other aftercare (3 sources) Long-term (current) use of other medications; Translations: [Other long term care phlebotomist (current) drug therapy] Onset: 03-31-2014 03-31-2014 Episodic Other connective tissue disease (1 source) Pain in right foot; Translations: [Pain in right foot] Onset: 07-03-2024 Episodic Other nutritional; endocrine; and metabolic disorders (3 sources) Body mass index (BMI) 27.0-27.9, adult; Translations: [Body mass index (BMI) 27.0-27.9, adult] Onset: 03-25-2013 03-25-2013 Episodic Unclassified (2 sources) Preoperative cardiovascular examination ; Translations: [Encounter for preprocedural cardiovascular examination] Onset: 03-31-2014 Resolved: 01-07-2015 01-07-2015 Results Test Name Value Interpretation Reference Range Facility Inital Evaluation (1) - PTon 01-07-2025 Inital Evaluation (1) - PT [facility] Physical [facility] 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 Date of Evaluation: 01/07/25 Physical Therapist: Cesar Holloway DPT Visit Plan Frequency: 2x /Week Duration: 6 Weeks Plan: PROM/AAROM of R shoulder progressing towards end ranges, careful with end range flexion and ER initially. 2) add in AROM and isometrics once able 3)ice as needed. Subjective Subjective: Pt. is here today for his initial evaluation with diagnosis of R reverse TSA, DOS: 12/25/24. Pt. arrives with use of sling. Pt. reports having R shoulder pain for a few months now. Since surgery he has been doing much better. Pt. is sleeping in chair with good tolerance. Pt. is icing and taking meds as prescribed. Pt. has been doing his exercises as prescribed. No N/T, no fever no chest pains. Pt is hopeful to get back to playing pickle ball and all working out without limitations. Pain R shoulder: Pain Intensity (Out of 10): 2 Pain Intensity Range: 0 and 4 Objective Objective: POSTURE: Pt. has R shoulder in guarded posture. PALPATION: Pt. has normal sensation throughout his RUE. Pt. has normal healing incisions. No signs of infection. Pt. does have a small stich in place, physician aware. Pt. reports physican said to let it work its way out. NEURO: normal throughout. ROM: PROM: R shoulder: flexion 135deg, abd 130deg, ER 20deg at side. Pt. had slight increase in pain at end ranges. Pt. has full R elbow ROM. Slight swelling at elbow. MMT: R shoulder did not test. L shoulder 5/5 throughout. Balance/Special Test Scores Quick DASH Score: 77.2725 Goals Goal 1:: LTG: PT. to have increased R shoulder ROM symmetrical to L shoulder allowing for increased ability to complete ALDs. Goal Time Frame: 4-6 Weeks Goal 2:: LTG: Pt. to have increased R shoulder strength symmetrical to L side allowing for increased recreational activities. Goal Time Frame: 4-6 Weeks Goal 3:: STG: Pt. to sleep throughout the night with out increase in R shoulder pain Goal Time Frame: 4-6 Weeks Goal 4:: LTG: Pt. to be able to reach with RUE into/out of cabinets. Goal Time Frame: 4-6 Weeks Goal 5:: LTG: Pt. to resume all pickleball activities. 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 Pt. has marked hypomobility, weakness, increased pain and difficulty with ADLs. Pt. would benefit from PT to address the above limitations progressing back to all previous actvities. Rehabilitation Potential: Excellent Anticipated Interventions Patient/Client Instruction: Educate patient on: Condition, Plan of Care, Risk Factors and Benefits of Fitness Program For the Purpose of:: To facilitate caregiver knowledge, To improve self management, To prevent re- injury, To improve ability to perform tasks related to life management and To improve tolerance to ADL's Therapeutic Exercise to Include: Strength training, Power training, Endurance training, Passive ROM, Active ROM and Scapular Strength/Stabilization For the Purpose of:: To decrease pain, To decrease swelling/inflammation, To increase ROM, To improve nutrient delivery to tissue, To increase oxygenation perfusion, To improve health of tissue, To decrease soft tissue restriction and To increase flexibility/ROM Cryotherapy (ice pack, ice massage): Yes Thermo therapy (hot pack): Yes For the Purpose of:: To decrease pain, To decrease swelling/inflammation and To increase ROM Text: Thank you for the opportunity to evaluate your patient. For Medicare and Medicare HMO plans, please review the plan of care and approve it. It will need to be FAXED BACK to us at [phone] for Medicare purposes. For Medicare only, by signing this I certify the plan of care. Please let me know if there are questions or concerns regarding this plan of care. Physician Signature: Date:__ 01/07/25 1202 CC: Dr. Matt Saul MD; EDILSON Diaz CLS Signed Normal [facility] Microalb:Creat Ratio,Random URon 01-06-2025 Creatinine [Mass/Vol] 68.50 mg/dL Normal 39.00-259.00 [facility] Comment on above: Order Comment: Order Date: 01/06/25 Order Info: [id number] - MIALB Performed By: #### L 502.0250 #### [facility] [address] [place], [place], [id number] MALB:CREAT 322.6 mg/g CRE High <30 mg/g CRE [facility] Comment on above: Order Comment: Order Date: 01/06/25 Order Info: [id number] - MIALB Performed By: #### L 502.0250 #### [facility] [address] [place], [address] MICROALBUMIN,UR 221.0 mg/L Normal <20 mg/L [facility] Comment on above: Order Comment: Order Date: 01/06/25 Order Info: [id number] - MIALB Performed By: #### L 502.0250 #### [facility] [address] [place], [address] Random urine creatinine collin urement (mass/volume)Ordered By: Matt Saul on 01-06-2025 Creatinine Unsp time (U) [Mass/Vol] 68.50 mg/dL 39.00-259.00 [facility] Urine albumin measurement wi detection limit of 20 mg/L or less (mass/volume)Ordered By: Matt Saul on 01-06-2025 Albumin DL <= 20 mg/L (U) [Mass/Vol] 221.0 mg/L <20 mg/L [facility] Anion gap in Serum or Plasma Ordered By: Major Yi on 12-24-2024 Anion gap [Moles/Vol] 15 mmol/L - [facility] BUN/creatinine ratioOrdered By: Major Yi on 12-24-2024 Urea nitrogen/Creatinine [Mass ratio] 19.8 mg/mg - [facility] Basic Metabolic Profile (BMP )on 12-24-2024 BUN/CRE 19.8 RATIO Normal 02-03 [facility] Comment on above: Performed By: #### L 500.2500, L100.0500 ####[facility] [address] [place], [address] Calcium [Mass/Vol] 9.2 mg/dL Normal 7.6-11.0 [facility] Comment on above: Performed By: #### L 500.2500, L100.0500 ####[facility] [address] [place], [address] Chloride [Moles/Vol] 100 mmol/L Normal 98-108 [facility] Comment on above: Performed By: #### L 500.2500, L100.0500 ####[facility] [address] [place], [address] CO2 [Moles/Vol] 19.6 mmol/L Low 21.0-32.0 [facility] Comment on above: Performed By: #### L 500.2500, L100.0500 ####[facility] [address] [place], [address] Creatinine [Mass/Vol] 1.01 mg/dL Normal 0.70-1.20 [facility] Comment on above: Performed By: #### L 500.2500, L100.0500 ####[facility] [address] [place], [address] ECRCL 68.29 ml/min Normal 50-250 [facility] Comment on above: Performed By: #### L 500.2500, L100.0500 ####[facility] [address] [place], [address] GAP 15 Normal 5-15 [facility] Comment on above: Performed By: #### L 500.2500, L100.0500 ####[facility] [address], [address] GFR/1.73 sq M.predicted among non-blacks MDRD (S/P/Bld) [Vol rate/Area] 77 mL/min/{1.73_m2} Normal >60 [facility] Comment on above: Result Comment: mL/m in/1.73m2 CKD-EPI Creatinine Equation (2020) Performed By: #### L 500.2500, L100.0500 ####[facility] [address] [place], [address] Glucose [Mass/Vol] 175 mg/dL High 70-99 [facility] Comment on above: Performed By: #### L 500.2500, L100.0500 ####[facility] [address] [place], [address] Potassium [Moles/Vol] 4.4 mmol/L Normal 3.3-5.1 [facility] Comment on above: Performed By: #### L 500.2500, L100.0500 ####[facility] [address], [address] Sodium [Moles/Vol] 135 mmol/L Normal 133-145 [facility] Comment on above: Performed By: #### L 500.2500, L100.0500 ####[facility] [address] [place], [address] Urea nitrogen [Mass/Vol] 20 mg/dL High 4-19 [facility] Comment on above: Performed By: #### L 500.2500, L100.0500 ####[facility] [address] [place], [address] Bedside Glucoseon 12-24-2024 FINGERSTICK GLU 306 mg/dL High 74-106 [facility] Comment on above: Result Comment: SUSAN GEMENT OF PATIENT CARE PER NURSING PROTOCOL Performed By: #### L 501.080 #### [facility] [address] [place], [address] FINGERSTICK GLU 188 mg/dL High 74-106 [facility] Comment on above: Result Comment: SUSAN GEMENT OF PATIENT CARE PER NURSING PROTOCOL Performed By: #### L 501.080 #### [facility] [address] [place], [address] CBC-Complete Blood Cnt No Di ffon 12-24-2024 Erythrocyte distribution width (RBC) [Ratio] 13.4 % Normal 11.6-14.6 [facility] Comment on above: Performed By: #### L 500.2500, L100.0500 #### [facility] [address] [place], [address] Hematocrit (Bld) [Volume fraction] 39.7 % Low 40-54 [facility] Comment on above: Performed By: #### L 500.2500, L100.0500 #### [facility] [address] [place], [address] Hemoglobin (Bld) [Mass/Vol] 13.5 g/dL Normal 13.0-16.5 [facility] Comment on above: Performed By: #### L 500.2500, L100.0500 #### [facility] [address] [place], [address] MCH (RBC) [Entitic mass] 29.6 pg Normal 27.0-32.0 [facility] Comment on above: Performed By: #### L 500.2500, L100.0500 #### [facility] [address] [place], [address] MCHC (RBC) [Mass/Vol] 34.0 g/dL Normal 32-36 [facility] Comment on above: Performed By: #### L 500.2500, L100.0500 #### [facility] [address] [place], [address] MCV (RBC) [Entitic vol] 87.1 fL Normal 80-94 [facility] Comment on above: Performed By: #### L 500.2500, L100.0500 #### [facility] [address] [place], [address] Platelet mean volume (Bld) [Entitic vol] 11.7 fL Normal 6.2-12.0 [facility] Comment on above: Performed By: #### L 500.2500, L100.0500 #### [facility] [address] [place], [address] Platelets (Bld) [#/Vol] 174 10*3/uL Normal 150-450 [facility] Comment on above: Performed By: #### L 500.2500, L100.0500 #### [facility] [address] [place], [address] RBC (Bld) [#/Vol] 4.56 10*6/uL Low 4.6-6.2 [facility] Comment on above: Performed By: #### L 500.2500, L100.0500 #### [facility] [address] [place], [address] RDW SD 41.7 fl Normal 35.1-43.9 [facility] Comment on above: Performed By: #### L 500.2500, L100.0500 #### [facility] [address] [place], [address] WBC (Bld) [#/Vol] 10.6 10*3/uL Normal 4.4-11.0 [facility] Comment on above: Performed By: #### L 500.2500, L100.0500 #### [facility] [address] [place], [address] Carbon dioxide, total [Moles /volume] in Central venous bloodOrdered By: Major Yi on 12-24-2024 CO2 [Moles/Vol] 19.6 mmol/L Low 21.0-32.0 [facility] Chloride assayOrdered By: Yumiko Yi on 12-24-2024 Chloride [Moles/Vol] 100 mmol/L 98-108 [facility] Erythrocyte distribution wid th ratioOrdered By: Major Yi on 12-24-2024 Erythrocyte distribution width (RBC) [Ratio] 13.4 % 11.6-14.6 [facility] Erythrocyte distribution wid th standard deviationOrdered By: Major Yi on 12-24-2024 Erythrocyte distribution width (RBC) [Ratio] 41.7 fl 35.1-43.9 [facility] Glomerular filtration rate ( GFR) estimation/1.73 sq m using serum, plasma, or whole bOrdered By: Major Yi on 12-24-2024 GFR/1.73 sq M.predicted among non-blacks MDRD (S/P/Bld) [Vol rate/Area] 77 mL/min/{1.73_m2} >60 [facility] Comment on above: mL/min/1.73m2 CKD-EP I Creatinine Equation (2020) [facility] de[facility]dered By: Major Yi on 12-24-2024 Glucose [Mass/Vol] 306 mg/dL High 74-106 [facility] Comment on above: MANAGEMENT OF PATIEN T CARE PER NURSING PROTOCOL Hematocrit Auto (Bld) [Volum e fraction]Ordered By: Major Yi on 12-24-2024 Hematocrit (Bld) [Volume fraction] 39.7 % Low 40-54 [facility] Hemoglobin measurementOrdere d By: Major Yi on 12-24-2024 Hemoglobin (Bld) [Mass/Vol] 13.5 g/dL 13.0-16.5 [facility] MCV (mean corpuscular volume ) determinationOrdered By: Major Yi on 12-24-2024 MCV (RBC) [Entitic vol] 87.1 fL 80-94 [facility] Mean corpuscular hemoglobin (MCH) determinationOrdered By: Major Yi on 12-24-2024 MCH (RBC) [Entitic mass] 29.6 pg 27.0-32.0 [facility] Mean corpuscular hemoglobin concentration (MCHC) determinationOrdered By: Major Yi on 12-24-2024 MCHC (RBC) [Mass/Vol] 34.0 g/dL 32-36 [facility] Mean platelet volume determi nationOrdered By: Major Yi on 12-24-2024 Platelet mean volume (Bld) [Entitic vol] 11.7 fL 6.2-12.0 [facility] Platelet countOrdered By: Yumiko Yi on 12-24-2024 Platelets (Bld) [#/Vol] 174 10*3/uL 150-450 [facility] Potassium measurement (mass/ volume)Ordered By: Major Yi on 12-24-2024 Potassium (Unsp spec) [Mass/Vol] 4.4 mmol/L 3.3-5.1 [facility] RBC Auto (Bld) [#/Vol]Ordere d By: Major Yi on 12-24-2024 RBC (Bld) [#/Vol] 4.56 10*6/uL Low 4.6-6.2 [facility] Serum creatinine measurement (mass/volume)Ordered By: Major Yi on 12-24-2024 Creatinine [Mass/Vol] 1.01 mg/dL 0.70-1.20 [facility] Serum glucose measurement (m ass/volume)Ordered By: Major Yi on 12-24-2024 Glucose [Mass/Vol] 175 mg/dL High 70-99 [facility] Serum or plasma calcium collin urement (mass/volume)Ordered By: Major Yi on 12-24-2024 Calcium [Mass/Vol] 9.2 mg/dL 7.6-11.0 [facility] Serum or plasma urea nitroge n measurement (mass/volume)Ordered By: Major Yi on 12-24-2024 Urea nitrogen [Mass/Vol] 20 mg/dL High 4-19 [facility] Sodium levelOrdered By: Moshe Yi on 12-24-2024 Sodium [Moles/Vol] 135 mmol/L 133-145 [facility] White blood cell (WBC) count Ordered By: Major Yi on 12-24-2024 WBC (Bld) [#/Vol] 10.6 10*3/uL 4.4-11.0 [facility] Bedside Glucoseon 12-23-2024 FINGERSTICK GLU 272 mg/dL High 74-106 [facility] Comment on above: Result Comment: SUSAN GEMENT OF PATIENT CARE PER NURSING PROTOCOL Performed By: #### L 501.080 ####[facility] [address] [facility] [place], [address] FINGERSTICK GLU 166 mg/dL High 74-106 [facility] Comment on above: Result Comment: SUSAN GEMENT OF PATIENT CARE PER NURSING PROTOCOL Performed By: #### L 501.080 ####[facility] [address] [place], [address] FINGERSTICK GLU 195 mg/dL High [facility]106 [facility] Comment on above: Result Comment: SUSAN GEMENT OF PATIENT CARE PER NURSING PROTOCOL Performed By: #### L 501.080 #### [facility] [address] [place], [address] Consultation - [facility] 12-23-2024 Consultation - Hospitalist [facility] Medical Records Department [address] [place] [address] Consultation - Hospitalist 12/23/24 1608 MR#: [id number] Acct: [id number] Name: MARIA E GUTHRIE Rep #: [id number] : 1950 74 From: Hansel Sultana DO PCP: Dr. Matt Sual MD Status:ADM BAR Location: [place] [address] Assessment Plan Assessment/Plan (1) Right rotator cuff tear arthropathy: PLAN: Plan Patient is a 74-year-old male who presented to [facility] on 12/23/2024 for planned right shoulder procedure. Medicine consulted postoperatively for medical management. 1. Right shoulder rotator cuff tear arthropathy ??? Orthopedic surgery primary. S/p right reverse total shoulder arthroplasty with Dr. Yi on 12/23. Tolerated procedure well. Postoperative pain control, DVT prophylaxis and further management per orthopedics. PT/OT/case management consulted. Follow-up a.m. labs. 2. History of CAD with stenting, hypertension, hyperlipidemia ??? Normotensive postoperatively. Continue home Lopressor, losartan, Zetia and baby aspirin. 3. Type 2 diabetes mellitus ??? Will treat with sliding scale insulin with meals while inpatient. Hold home metformin. 4. History of gout ??? Continue home allopurinol. Total clinical time spent by myself addressing the patient's medical issues, reviewing all the data, and collaborating with patient's care team: 38 minutes. HPI Consult Data Date of Consult: 12/23/24 HPI Narrative Reason for Consultation: Postoperative medical management HPI Narrative: MARIA E GUTHRIE, is a 74 M who presented to [facility] on 12/23/2024 for planned orthopedic procedure. Medicine consulted postoperatively for medical management. Patient had right reverse total shoulder arthroplasty done with Dr. Yi today. Tolerated procedure well. I saw the patient at bedside later this afternoon. Patient was sitting up comfortably in bed, conversing normally, in no acute distress. Noted that he did still have some numbness and tingling in his fingers but denied any pain or discomfort in the shoulder. No other acute concerns at this time. [facility] Medical History Wears hearing aid Wears glasses Wears partial dentures History of steroid therapy Arthritis Dietary restriction Non-smoker History of echocardiogram History of stress test Cardiology follow-up encounter Diabetes Myocardial infarct Hypertension Osteoarthritis Gout Atherosclerosis of coronary artery of [place] heart without angina pectoris Hyperlipidemia Home Medications ???Medication ???Instructions ???Recorded ???Last Taken ???Type aspirin 81 mg tablet,delayed 81 mg PO DAILY@0800 06/09/1312/17 History release metoprolol tartrate 25 mg tablet 25 mg PO BID 05/10/17 12/23/24 06: 26 History metformin 500 mg tablet 500 mg PO BID 05/11/17 12/22/24 Hi story ezetimibe 10 mg tablet 10 mg PO DAILY #180 tabs 10/02/17 12/22/24 Rx cholecalciferol (vitamin D3) 25 4,000 unit PO DAILY 01/21/2012/17 History mcg (1,000 unit) tablet cyanocobalamin (vitamin B-12) 500 mcg PO DAILY 01/21/20 12/17/24 History 1,000 mcg capsule alirocumab 75 mg/mL subcutaneous 150 mg subcut Q2W 03/26/21 5 History pen injector (Praluent Pen) losartan 100 mg tablet 100 mg PO QHS 02/08/22 12/22/24 Hi story allopurinol 300 mg tablet 300 mg PO BID 04/04/24 12/22/24 Hi story Allergy/AdvReac Type Severity Reaction Status Date / Time Zbdsfsi-GLU-EqO Reductase AdvReac Mild myalgias Verified 12/23/24 10:26 Inhibitor (Ifshrbo-Lzi-Ulp Reductase Inhibitor) Family History Brother CAD (coronary artery disease) Hx of CABG Surgical History Hx of colonoscopy Hx of total knee arthroplasty History of coronary artery stent placement History of left knee replacement (03/20/19) History of right knee surgery History of left knee surgery History of repair of rotator cuff Social History Smoking Status: Never smoker alcohol intake: never substance use type: does not use caffeine: Yes Type: carbonated beverages Number of servings: 1 ROS Constitutional Constitutional: Denies chills, fatigue, fever(s) or weakness Cardiovascular Cardiovascular: Denies chest pain Respiratory/Chest Respiratory/Chest: Denies shortness of breath at rest Gastrointestinal Gastrointestinal: Denies abdominal pain Musculoskeletal Musculoskeletal: Denies arthralgias, joint pain or myalgias Neurologic Neurologic: Denies focal weakness Physical Exam Const alert, oriented x3, no apparent distress, average body habitus, healthy appearing and well nourished (more content not included)... [facility] MR/POSTOP.ANEon 12-23-2024 MR/POSTOP.[facility] Medical Records Department [address] [place] [address] Anesthesia Postop Eval I 12/23/24 1332 MR#: [id number] Acct: [id number] Name: MARIA E GUTHRIE Rep #: [id number] : 1950 74 From: Priscilla Willard CRNA PCP: Dr. Matt Saul MD Status:REG [facility] Y Race: C Location: [place] [address] Anesthesia: Postop Eval I Current Vital Signs Temperature: 97 F Pulse Rate: 89 Blood Pressure: 145/87 Respiratory Rate: 18 Pulse Ox: 93 Assessment Airway patent: Yes Spontaneous unlabored respirations: Yes nausea: No Vomiting: No Anesthesia Complication: No Fluid Hydration Crystalloid volume administer (ml): 1,300 Total IV fluid infused: 1,300 Progress Note Anesthesia document: Postop Eval 1 completed: Yes 12/23/241332 Date Priscilla Willard GENERAL SALES MANAGER Cosigner Signature: Date CC: Signed [facility] MR/[id number] 12-23-2024 MR/POSTOPAN2 [facility] Medical Records Department [address] [facility] [place] [address] Anesthesia Postop Eval II 12/23/24 1433 MR#: [id number] Acct: [id number] Name: MARIA E GUTHRIE Rep #: [id number] : 1950 74 From: Oesi Lubin MD PCP: Dr. Matt Saul MD Status:ADM BAR Y Race: C [id number] Postop Eval I Sum Postop Eval Completion status Anesthesia document: Postop Eval 1 completed: Yes Anesthesia Postop Eval I Summary Anesthesia Postop Eval I Summary: Anesthesia Postop Eval I: Assessment Summary Airway patent Yes 12/23/24 13:32 GENERAL SALES MANAGER.CSIR Spontaneous unlabored Yes 12/23/24 13:32 GENERAL SALES MANAGER.CSIR respirations Mental status nausea No 12/23/24 13:32 GENERAL SALES MANAGER.CSIR Vomiting No 12/23/24 13:32 GENERAL SALES MANAGER.CSIR Anesthesia Postop Eval I: Fluid Summary Crystalloid volume administer 1,300 12/23/24 13:32 GENERAL SALES MANAGER.CSIR (ml) Colloids volume administered ( ml) Blood Product volume administered (ml) Total IV fluid infused 1,300 12/23/24 13:32 GENERAL SALES MANAGER.CSIR Anesthesia Postop Eval I: Summary Notes Anesthesia Complication No 12/23/24 13:32 GENERAL SALES MANAGER.CSIR Anesthesia Complication Comment: Post-operative progress note Anesthesia: Postop Eval II Evaluation Mental status: Awake and Calm Pain Level: 1 nausea: No Vomiting: No Complications Anesthesia Complication: No 12/23/24 1433 Date Osei Lubin MD Cosigner Signature: Date CC: Signed Normal [facility] Magnesiumon 12-23-2024 Magnesium [Mass/Vol] 1.8 mg/dL Normal 1.5-2.2 [facility] Comment on above: Performed By: #### L 501.5200 #### [facility] [place], [address] Magnesium measurement (mass/ volume)Ordered By: Faheem Barroso on 12-23-2024 Magnesium (Unsp spec) [Mass/Vol] 1.8 mg/dL 1.5-2.2 [facility] Operative Reporton Operative Report [facility] Medical Records Department [address] [place] [address] Operative Report 12/23/24 1322 MR#: [id number] Acct: [id number] Name: MARIA E GUTHRIE Rep #: [id number] : 1950 74 From: Major Yi DO PCP: Dr. Matt Saul MD Status:[facility] Location: [place] [address] Operative Report (Standard) Operative Information Date of Procedure: 12/23/24 Pre-Operative Diagnosis: Right shoulder rotator cuff tear arthropathy Post-Operative Diagnosis: Right shoulder rotator cuff tear arthropathy Surgery/Procedure Performed: Right reverse total shoulder arthroplasty underwater hunter trapper: Yes Boiler Attendant: Oneyda Solano Tasks completed by presser first: Opening closing, Implanting device, Hemostasis: Electrocautery and Retracting Type of Anesthesia: General/Regional RN Documented Start/Stop Times: Operation Date: 12/23/24 12:00 Case Time Into Pre-Op 12/23/24 09:48 Out of Pre-Op 12/23/24 11:00 Anesthesia Start 12/23/24 11:22 Into Room 12/23/24 11:22 Procedure Start 12/23/24 11:49 Procedure End 12/23/24 13:16 Procedure Start Time: 11:49 Procedure Stop Time: 13:16 Select all DRAINS/GRAFTS/IMPLANTS that apply: Implanted device Implanted device details: Tornier Aequalis PerFORM+ reversed baseplate 29 mm diameter +6 mm lateralization, standard glenosphere cobalt chrome 42 mm diameter, Tornier perform inlay stem size #3, + 6 mm retentive size number 3 42 mm diameter polyethylene insert, short central post and peripheral screws x4. Estimated Blood Loss: 150 cc Specimen collected: No Description of surgery: Patient arrived to [facility] morning of the procedure and was greeted by the same day surgery staff. Prior to his procedure, I greeted the patient in the preoperative holding area I identified the patient by name, record number, and date of . Informed consent was confirmed. The operative extremity was marked. All questions were answered to patient satisfaction. An interscalene block was administered prior to procedure by anesthesia staff for postoperative and intraoperative analgesia. At time of his procedure, patient was brought to the operative suite and positioned supine on a standard table with a beachchair attachment. General anesthesia was induced after all bony prominences were well-padded. Endotracheal tube was placed. After adequate anesthesia and securing the tube, we prepared the patient to be positioned in the beachchair position. A well-padded buyer tobacco head was applied. The nonoperative extremity was placed in a well arm raza. He was then brought into the beachchair position after we confirmed an appropriate blood pressure. We then spun the bed 45 degrees. The operative extremity was then prepared. In the butterfly wing of the bed was removed and a well-padded torso strap was applied to secure the patient to the bed. The operative extremity was now free. We then prepped and draped the right upper extremity in normal, sterile orthopedic fashion. We then performed a timeout with all parties in attendance in agreement with the side, site, and operation be performed. 2 g Ancef was administered prior to incision by anesthesia staff, as well as 1 g TXA IV. No concerns were voiced and we elected to proceed. I first marked a standard deltopectoral incision just lateral to the coracoid process in line with the long axis of the humerus. Skin was sharply incised with 10 blade scalpel. I then dissected bluntly through the subcutaneous layers and found the fat stripe between the deltoid and pectoralis major. The cephalic vein was then identified and protected. It was retracted laterally with the deltoid. I then bluntly dissected underneath the deltoid with a Lamb elevator. Lenny retractor was placed. The upper 1 cm of the pectoralis major was released. The long head biceps tendon was not identified and appeared to be chronically ruptured and retracted. I then identified the lesser and greater tuberosities. The supraspinatus was completely torn and retracted with an exposed greater tuberosity. Prior rotator cuff repair sutures were identified and removed. I then performed a subscapularis peel while rotating the humerus externally. I tagged the subscapularis for possible repair later with a tagging suture. Humeral head was then dislocated anteriorly. Appropriate access to the humeral head was confirmed. I then subluxed the humeral head posteriorly with a Fukuda retractor placed around the posterior lip of the glenoid. Inferior capsule was tension. I was able to palpate the axillary nerve. Inferior capsule was then released to the 4 o'clock position of the glenoid face. 3 sided subscapularis release was performed with Bovie cautery. I then remove the Fukuda retractor and redislocated the shoulder anteriorly. I then made a anatomic neck cut of the cartilaginous carla (more content not included)... Normal [facility] Shoulder min 2 Viewson 12-23 Shoulder min 2 Views [facility] Imaging Services [address] [place] [address] Shoulder min 2 Views MR#: [id number] Acct: [id number] Name: MARIA E GUTHRIE Rep #: [id number] : 1950 M 74 From: Seven Suárez MD PCP: Dr. Matt Saul MD Status: [facility] Study: Shoulder min 2 Views Date of Exam: 12/23/24 Exam# [id number] Ordering Dr: Major Yi DO PROCEDURE: SHOULDER MIN 2 VIEWS 12/23/2024 REASON FOR EXAM: POST OP TECHNIQUE: Procedure Code: RADSH Modality: DX Procedure: SHOULDER MIN 2 VIEWS Laterality: Right COMPARISON: Previous September 2020. FINDINGS: Bones: Right shoulder reverse arthroplasty. Orthopedic hardware intact. Mild degenerative changes in the right AC joint. Negative for fractures. Scapula otherwise negative. Proximal humerusotherwise negative. Clavicle negative. Joints: Right shoulder reverse arthroplasty intact. Soft tissues: Surgical changes. Otherwise adjacent structures negative. Other: Remainder of the exam negative. RAD/Shoulder min 2 Views IMPRESSION: Right shoulder reverse arthroplasty. Reading Location: [place] [address] CC: Dr. Matt Saul MD; Dr. Major Yi DO Embedded Hardware Engineer: Signed [facility] MR/PAT.ANEon 12-04-2024 MR/PAT.ANE [facility] Medical Records Department [address] [facility] [place] [address] PAT - Anesthesia 12/04/241946 MR#: [id number] Acct: [id number] Name: MARIA E GUTHRIE Rep #: [id number] : 1950 74 From: Faheem Barroso MD PCP: Dr. 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 When Was Last Pacemaker Check QUESTION #4 FULL TEXT: You/Your Family Experience fever (hyperthermia) with Anesthesia Last Oral Intake Last Oral intake: Last Oral Intake NPO since Meds taken in AM with sips of water? 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 Has anyone observed you stop No 12/03/24 10:59 breathing during sleep? STOP Results Negative 12/03/24 10:59 QUESTION #5 FULL TEXT : Do you snore loudly (louder than talking or can be heard through closed doors)? 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 Specify any problems Hx of Preganancy in last 3 N/A 12/03/24 10:59 Months Nurse Filling Out Transfusion DSCHRIBER 12/03/24 10:59 Questions: Date: 12/03/24 12/03/24 10:59 Time: 11:01 12/03/24 10:59 Patient unable to answer at this time (ie. 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 Hx Now No 12/03/24 10:59 Gestational Age (in weeks): EDC: Hx Hx Para Hx Section SAB No 12/03/24 10:59 PFSH Medical History (Updated 12/03/24 @ 11:11 by Juana Wing) Wears hearing aid Wears glasses Wears partial dentures History of steroid therapy Arthritis Dietary restriction Non-smoker History of echocardiogram History of stress test Cardiology follow-up encounter Diabetes Myocardial infarct Hypertension Osteoarthritis Gout Atherosclerosis of coronary artery of [place] heart without angina pectoris Hyperlipidemia Home Medications ???Medication ???Instructions ???Recorded ???Last Taken ???Type aspirin 81 mg tablet,delayed 81 mg PO DAILY@0800 06/09/1306/08 History release metoprolol tartrate 25 mg tablet 25 mg PO BID 05/10/17 Unknown Hist ory metformin 500 mg tablet 500 mg PO BID 05/11/17 Unknown His tory ezetimibe 10 mg tablet 10 mg PO DAILY #180 tabs 10/02/17 Unknown Rx cholecalciferol (vitamin D3) 25 4,000 unit PO DAILY 01/21/20 Unkno wn History mcg (1,000 unit) tablet cyanoc (more content not included)... Normal [facility] 12 Lead EKGon 11-27-2024 12 Lead EKG [facility] Cardiovascular Services [address] [place] [address] 12 Lead EKG 11/27/24 0654 MR#: [id number] Acct: [id number] Name: MARIA E GUTHRIE W Rep #: [id number] : 1950 74 From: Seven Grey MD Attending Dr: Dr. Major Yi DO Status: PRE [facility] Ordering Dr: Major Yi DO Date: 11/27/24 Location: [facility] Sex: M C Admitted: Test Reason : PREOP Blood Pressure : */* mmHG Vent. Rate : 56 BPM Atrial Rate : 56 BPM P-R Int : 228 ms QRS Dur : 100 ms QT Int : 416 ms P-R-T Axes : 49 -9 8 degrees QTcB Int : 401 ms Sinus bradycardia with 1st degree A-V block Incomplete right bundle branch block Borderline ECG Confirmed by Seven Grey ([id number]), web editor KARINA GIVENS ([id number]) on 11/27/2024 9:43:00 AM Referred By: Major Yi Confirmed By: Seven Grey 11/27/24 0943 Date Seven Grey MD CC: Dr. Matt Saul MD; Dr. Major Yi DO Signed Normal [facility] Electrocardiogram reportOrde red By: Seven Grey on 11-27-2024 EKG study [facility] Cardiovascular Services [address] [place] [address] 12 Lead EKG 11/27/24 0654 MR#: [id number] Acct: [id number] Name: MARIA E GUTHRIE Rep #:[id number] : 1950 74 From: Seven alcantara MD Attending Dr: Dr. Major Yi DO Status: PRE [facility] Ordering Dr: Major Yi DO Date: 11/27/24 Location: [facility] Sex: M C Admitted: Test Reason : PREOP Blood Pressure : */* mmHG Vent. Rate : 56 BPM Atrial Rate : 56 BPM P-R Int : 228 ms QRS Dur : 100 ms QT Int : 416 ms P-R-T Axes : 49 -9 8 degrees QTcB Int : 401 ms Sinus bradycardia with 1st degree A-V block Incomplete right bundle branch block Borderline ECG Confirmed by Seven Grey ([id number]), web editor KARINA GIVENS ([id number]) on 59:43:00 AM Referred By: Major Yi Confirmed By: Seven Grey 11/27/24 0943 Date _ Sveen Grey MD CC: Dr. Matt Saul MD; Dr. Major Yi DO ~ Signed [facility] Work Phone: Extremity Upper without Cont raon 11-26-2024 Extremity Upper without Contra [facility] Imaging Services [address] [place] [id number] Extremity Upper without Contra MR#: [id number] Acct: [id number] Name: MARIA E GUTHRIE Rep #: [id number] : 1950 M 74 From: Gonzalez Garcia MD PCP: Dr. Matt Saul MD Status: REG CLI Study: Extremity Upper without Contra Date of Exam: 0 11/26/24 Exam# [id number] Ordering Dr: Major Yi DO PROCEDURE: EXTREMITY UPPER WITHOUT CONTRA 11/26/2024 REASON FOR EXAM: BLUE PRINT PROTOCOL,PRIMARY OSTEOARTHRITIS, RIGHT SHOULDER TECHNIQUE: EXTREMITY UPPER WITHOUT CONTRA Coronal and Sagittal reconstruction series were provided. One or more dose reduction techniques were used (e.g., Automated exposure control, adjustment of the mA and/or kV according to patient size, use of iterative reconstruction technique. RADIATION DOSE SUMMARY: DLP: 803 mGycm COMPARISON: None FINDINGS: There is postsurgical change with suture anchors noted in the humeral head consistent with prior rotator cuff repair. There is severe supraspinatus and infraspinatus muscular atrophy, consistent with chronic rotator cuff tear. There is severe osteoarthritis of the glenohumeral articulation with joint space narrowing and marginal osteophytes. No acute fracture or dislocation is identified. The AC joint is aligned. There are corticated osteochondral fragments in the anterior superior joint space with the largest measuring 0.4 cm. There is a 0.5 cm corticated osteochondral fragment in the superior subscapularis recess. There is a moderate joint effusion. Mineralization is normal. Atherosclerotic calcifications are visible. CT/Extremity Upper without Contra IMPRESSION: There is postsurgical change with suture anchors noted in the humeral head consistent with prior rotator cuff repair. There is severe supraspinatus and infraspinatus muscular atrophy, consistent with chronic rotator cuff tear. There is severe osteoarthritis of the glenohumeral articulation with joint space narrowing and marginal osteophytes. Reading Location: [facility] CC: Dr. Matt Saul MD; Dr. Major Yi DO Embedded Hardware Engineer: Signed [facility] Urgent Care Visit Reporton 0 07-09-2024 Urgent Care Visit Report [facility] [address], [address] [place] [address] OFFICE VISIT Date of Service: 07/09/24 MR#: [id number] Acct: [id number] Name: MARIA E GUTHRIE Rep #: [id number] : 1950 Provider: EDILSON Salinas Age/Sex: 74/M Location: [facility] Status: Signed Intake Vital Signs 04/04/24 14:18 07/09/24 17:33 Height 6 ft Weight: 201 lb BMI 27.2 BP 132/90 H 136/74 H Blood Pressure Location Lt brachial Lt brachial Position Sitting Sitting Respiration 16 15 Pulse 69 92 Pulse Source Monitor NIBP Temp 98.0 F Temp Source Oral Pulse Oximetry (%) 97 Oxygen Delivery Method room air Intake Visit Reasons: RASH ON BACK Chief Complaint: rash [employer] Required: No Is patient in pain?: Yes Allergies Yodousx-THM-BiR Reductase Inhibitor (Lwxjuku-Inp-Eyl Reductase Inhibitor) Adverse Reaction (Mild, Verified 07/09/24 17:33) myalgias Have you fallen in the past year?: No Nurse's Note: rash to left upper buttock/low back x 3-4 days with burning. 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 Essential hypertension Type 2 diabetes mellitus without complications Osteoarthritis Gout Atherosclerosis of coronary artery of [place] heart without angina pectoris PTSD (post-traumatic stress disorder) Hyperlipidemia Surgical History History of left knee replacement (03/20/19) History of right knee surgery History of left knee surgery History of repair of rotator cuff History of coronary artery stent placement (08/17/06) Family History Brother CAD (coronary artery disease) Hx of CABG Social History Smoking Status: Never smoker alcohol intake: never substance use type: does not use caffeine: Yes Type: carbonated beverages Number of servings: 1 HPI HPI Chief Complaint: rash Details: MARIA E GUTHRIE, is a 74 M who presents to the office today for initial evaluation less than 3-4 day history of clustered erythematous base vesicular lesions left low back/ buttocks of unknown etiology. Chickenpox as a child. Shingrix vaccine within the last several months. No history of trauma to the same. Localized burning sensation appreciated particularly over the last 24 hours. No mjuo-zba-elbieau products taken to assist. No other associated symptoms and no other alleviating/aggravatin g factors. ROS Const Constitutional: No other (As above) Exam Const General: cooperative, healthy appearing and no acute distress Nutritional Appearance: average body habitus Orientation: alert and awake HENOR Head: normal to inspection Ears: hearing grossly normal bilaterally and EAC's normal Resp Effort Inspection: normal respiratory effort and able to speak in complete sentences Cardio Rate: regular rate Pulses: radial pulses present Skin General: no rashes or lesions noted Other: Except clustered erythematous base vesicular lesions left low back/ buttocks Neuro General: patient alert, patient awake and patient oriented x3 Cognition: normal cognition Speech: speech normal Psych Appearance: grossly normal Mental Status: mental status grossly normal Mood: congruent mood Affect: normal affect Speech and Movement: speech and movement normal Attitude: cooperative Diagnoses Shingles B02.9 Assessment and Plan Assessment and Plan (1) Shingles: Status: Acute Plan: Valacyclovir as prescribed today. Supportive measures as instructed today. Pap with PCP in 7 to 10 days should symptoms not improve, sooner should symptoms only worsen or any other concerns develop. Patient states acknowledging understanding all the above. Coding Level of Care Code Off vis,est,level 3 Assessment and Plan Assessment and Plan Medications: New valacyclovir 1,000 mg PO TID 21 tabs 0RF Clinical Quality Measures Falls Risk Screening/Assistive Devices Have you fallen in the past year?: No 07/09/24 1738 Date Yang Rodríguez Signature: Date (if applicable) CC: Normal [facility] Ankle min 3 Viewson 06-19-19 25 Ankle min 3 Views [facility] Imaging Services [address] [place] [id number] Ankle min 3 Views MR#: [id number] Acct: [id number] Name: MARIA E GUTHRIE Rep #: [id number] : 1950 M 74 From: Tenzin Joshua MD PCP: Dr. Matt Saul MD Status: REG CLI Study: Ankle min 3 Views Date of Exam: 06/18/24 Exam# [id number] Ordering Dr: Matt Saul EXAM: XR Right Ankle Complete, 3 or More Views CLINICAL INDICATION: TECHNIQUE: Frontal, lateral and oblique views of the right ankle. COMPARISON: No relevant prior studies available. FINDINGS: BONES/JOINTS: See below. SOFT TISSUES: Soft tissue swelling without acute fracture. OTHER FINDINGS: Suboptimal exam secondary to underpenetration. RAD/Ankle min 3 Views IMPRESSION: 1. Soft tissue swelling without acute fracture. 2. If symptoms persist, further evaluation with CT is recommended. Reading Location: [facility] CC: Dr. Matt Saul MD Embedded Hardware Engineer: Signed Normal [facility] Foot min 3 Viewson Foot min 3 Views [facility] Imaging Services [address] [place], [place] [id number] Foot min 3 Views MR#: [id number] Acct: [id number] Name: MARIA E GUTHRIE Rep #: [id number] : 1950 M 74 From: Pako de leon MD PCP: Dr. Matt Saul MD Status: REG CLI Study: Foot min 3 Views Date of Exam: 06/18/24 Exam# [id number] Ordering Dr: Matt Saul PROCEDURE: FOOT MIN 3 VIEWS REASON FOR EXAM: Several month history of pain. TECHNIQUE: 3 views of the right foot were obtained. COMPARISON: None. FINDINGS: RIGHT FOOT: Marked degree of joint space narrowing at the 1st metatarsophalangeal joint with periarticular calcifications. Gout should be ruled out. Calcaneal spurs. RAD/Foot min 3 Views IMPRESSION: Degenerative changes at the 1st metatarsal phalangeal joint with periarticular ossifications suggestive of gout. Calcaneal spurs. Reading Location: [id number] CC: Dr. Matt Saul MD Embedded Hardware Engineer: Signed Normal [facility] Cardiology Visit Reporton Cardiology Visit Report [facility] [address] [place], [place] [address] OFFICE VISIT Date of Service: 04/04/24 MR#: [id number] Acct: [id number] Name: MARIA E GUTHRIE Rep #: [id number] : 1950 Provider: Dr. Nathan Purcell MD Age/Sex: 73/M Location: [facility] Status: Signed HPI HPI History of Present Illness Details: Mr. Guthrie is a very pleasant 73-year-old male who presents to the office today for a cardiovascular follow-up visit. He has a history of hypertension, hypercholesterolemia, coronary artery disease status post acute posterior wall myocardial infarction on 08/17/2006. At that time he underwent emergent successful angioplasty and stenting of his mid left circumflex artery with a 3.5X 18 cypher stent, postdilated to 3.75 with a noncompliant balloon. In addition he also had nonobstructive disease of his right coronary artery in the range of 50% and a small ostial diagonal lesion of approximate 70%. This is been treated medically ever since. Have a stress echo in 2019 demonstrating no evidence of ischemia at a high workload. He tells me that he has been put on Praluent by the [facility]. From a cardiac standpoint, the patient is doing well. He denies any palpitations, chest pain, pressure or heaviness. He does not have SOB, Orthopnea, or PND. He does not have bleeding issues; no blood in urine, stool or nosebleeds. He does acknowledge a slight decrease in energy level. He states that he continues to work 2 days a week, and plays pickle ball 3 days a week. He denies myalgias, or claudication. He does not have edema, or sudden weight gain. He does not have dizziness, lightheadedness, syncopal or near syncopal episodes, and headaches. 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 Required: No Accompanied by: Self Is patient in pain?: No Allergies Ytceceh-KJF-QmW Reductase Inhibitor (Njrnhjd-Bin-Tgi Reductase Inhibitor) Adverse Reaction (Mild, Verified 04/04/24 14:19) myalgias Medications ???Medication ???Instructions ???Recorded ???Confirmed ???Type aspirin 81 mg tablet,delayed 81 mg PO DAILY@0800 06/09/13 04/04/24 History release metoprolol tartrate 25 mg tablet 12.5 mg PO BID 05/10/17 04/04/24 History metformin 500 mg tablet 500 mg PO BID 05/11/17 04/04/24 History ezetimibe 10 mg tablet 10 mg PO DAILY #180 tabs 10/02/17 04/04/24 Rx cholecalciferol (vitamin D3) 25 4,000 unit PO DAILY 01/21/20 04/04/24 History mcg (1,000 unit) tablet cyanocobalamin (vitamin B-12) 500 mcg PO DAILY 01/21/20 04/04/24 History 1,000 mcg capsule alirocumab 75 mg/mL subcutaneous 150 mg subcut Q2W 03/26/21 04/04/24 History pen injector (Praluent Pen) losartan 100 mg tablet 100 mg PO DAILY 02/08/22 04/04/24 History hydrochlorothiazide 25 mg tablet 25 mg PO DAILY 02/08/23 04/04/24 History allopurinol 300 mg tablet 400 mg PO DAILY 04/04/24 04/04/24 History Have you fallen in the past year?: No PFSH Medical History Diabetes Myocardial infarct Coronary artery disease Chest pain Hypertension 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 Essential hypertension Type 2 diabetes mellitus without complications Osteoarthritis Gout Atherosclerosis of coronary artery of [place] heart without angina pectoris PTSD (post-traumatic stress disorder) Hyperlipidemia Surgical History History of left knee replacement (03/20/19) History of right knee surgery History of left knee surgery History of repair of rotator cuff History of coronary artery stent placement (08/17/06) Family History Brother CAD (coronary artery disease) Hx of CABG Social History Smoking Status: Never smoker alcohol intake: never substance use type: does not use caffeine: Yes Type: carbonated beverages Number of servings: 1 ROS Const Const: Negative for fatigue, weakness, headache(s), daytime sleepiness or difficulty sleeping ENT ENT: Negative for headache(s), dizziness or Nosebleed/epistaxis Cardio Chest Pain: No Palpitations: No Edema: None Resp Respiratory: Negative for SOB with activity, SOB at rest, SOB orthopnea SOB lying down or Cough GI GI: Negative nausea, vomiting or heartburn Neuro Neuro: Negative for dizziness, lightheadedness, near syncope, headache(s) or weakness Endo Endo: Negative for fatigue Cardiology Exam Const Appearance: cooperative and no acu (more content not included)... Normal [facility] CNOVon 02-26-2024 CN Office Visit (GENSWS ) MARIA E GUTHRIE ([id number]) 1950 Date Time Provider Department 02/26/24 1:00 PM MADDIE BERNSTEIN GENS During your visit today, we recorded the following information about you: Maddie Bernstein APRN.CNP 02/26/2024 1:03 PM Signed FOLLOW UP VISIT - ENDOSCOPY Maria E John Maksim 1950 [id number] REFERRING PHYSICIAN: Matt Saul ([facility]) [address] [place] [id number] Maria E Guthrie is a patient I am following for colonoscopy screening d/t polyps. Dr. Lord performed lower endoscopy on 02/19/24. The patient was found to have Impression: - Preparation of the colon was inadequate. - One diminutive polyp in the sigmoid colon, removed with a jumbo cold forceps. Resected and retrieved. - The examination was otherwise normal. - Non-bleeding internal hemorrhoids. Pathology demonstrated: FINAL DIAGNOSIS A. Colon, sigmoid, polyp, polypectomy -Tubular adenoma The patient notes no complaints since the procedure. Maria E was seen in the office for consult with in 3 days of the scope and I believe this contributed to the poor bowel prep. Patient states he followed the prep instructions. VITALS: There were no vitals taken for this visit. General: patient is alert, cooperative, pleasant and in no acute distress On examination, the abdomen is benign. Assessment ASSESSMENT/PLAN: 1. History of colonic polyps - ICD9: V12.72, ICD10: Z86.0100 The operative findings and pathology report were reviewed with the patient, and the patient has had the opportunity to ask questions and have questions answered. If the patient notes any problems or changes in bowel function, the patient should contact me immediately. Otherwise I recommend follow up endoscopy in 3 years. HM updated and recall letter generated. Discussed treatment plan and patient voices understanding. Patient's questions answered appropriately. Medications and potential side effects were discussed and patient voices understanding. Return to the office as scheduled or as needed for worsening/no improvement. Maddie Bernstein APRN.BALJIT Referring Provider: MATT SAUL [[id number]] Allergies As of Date: 02/26/2024 Noted Allergy Reaction ZOCOR (SIMVASTATIN) 08/15/2006 5 - Intolerance Comments: myalgias Date Reviewed: 02/26/2024 Reviewed by: Maddie Bernstein APRN.RELIGIOUS EDUCATOR - Fully Assessed Reason for Visit: Follow Up [171] Cmt: Review colonoscopy results. Primary Visit Diagnosis:History of colonic polyps [Z86.0100] Prescriptions as of 02/26/2024 - alirocumab (PRALUENT) 150 mg/mL pen Inject 150 mg subcutaneously. - losartan (COZAAR) 100 mg tablet Take 100 mg by mouth. - fluticasone (FLONASE) 50 mcg/actuation nasal spray Use 1 [place] in the nose once daily. - cyanocobalamin (VITAMIN B-12) 500 mcg tablet Take 1 tablet by mouth once daily. - clotrimazole (LOTRIMIN) 1 % cream Apply to affected area. - allopurinol (ZYLOPRIM) 100 mg tablet Take 400 mg by mouth once daily. - METFORMIN HCL (METFORMIN ORAL) Take by mouth. - metoprolol tartrate, short acting, (LOPRESSOR) 25 mg tablet Take 1 tablet by mouth twice daily. - Aspirin 81 mg Tab Take 1 tablet by mouth once daily. Take with food. - ezetimibe (ZETIA) 10 mg ORAL tablet Take one(1) tablet daily. Problem List As Of Date 02/26/2024 Noted Resolved GOUT NOS [M10.9] 08/15/2006 HYPERLIPIDEMIA NEC/NOS [E78.5] 08/15/2006 Cor Athrscl-Uns Vessel [I25.10] 12/24/2008 Unspecified Essential Hypertension [I10] Mixed Hyperlipidemia [E78.2] Screen for colon cancer [Z12.11] 02/25/2010 PTSD (post-traumatic stress disorder) [F43.10] 06/11/2012 BPH (benign prostatic hypertrophy) [N40.0] 06/11/2012 History of colonic polyps [Z86.0100] 02/19/2024 Encounter Status:Closed by MADDIE BERNSTEIN on 02/26/24 [facility] [id number] 02-19-2024 [id number] HNO ID: [id number] Author: ESTELLE BIRD RN Service: ? Author Type: Registered Nurse Type: [id number] Filed: 02/19/2024 12:17 Note Text: The patient received a copy of Colonoscopy discharge instructions that contain information for how to contact the physician who performed the procedure and when to seek medical care. [facility]19[facility] Name: Maria E Guthrie Procedure Date: 02/19/2024 11:28 AM Date of : 1950 Admit Type: Outpatient Age: 73 Gender: Male Note Status: Finalized Procedure: Colonoscopy Indications: High risk colon cancer surveillance: Personal history of colonic polyps Providers: Demetri Lord MD Patient Profile: This is a 73 year old male. Refer to note in patient chart for documentation of history and physical. Last Colonoscopy: June 2020. Referring Physician: Maddie Bernstein (Referring MD) Medicines: Fentanyl 100 micrograms IV, Midazolam 5 mg IV Complications: No immediate complications. Estimated blood loss: Minimal. Requesting Provider: Procedure: Pre-Anesthesia Assessment: - Prior to the procedure, a History and Physical was performed, and patient medications and allergies were reviewed. The patient's tolerance of previous anesthesia was also reviewed. The risks and benefits of the procedure and the sedation options and risks were discussed with the patient. All questions were answered, and informed consent was obtained. Prior Anticoagulants: The patient has taken no anticoagulant or antiplatelet agents. ASA Grade Assessment: III - A patient with severe systemic disease. After reviewing the risks and benefits, the patient was deemed in satisfactory condition to undergo the procedure. After I obtained informed consent, the scope was passed under direct vision. Throughout the procedure, the patient's blood pressure, pulse, and oxygen saturations were monitored continuously. The Colonoscope was introduced through the anus and advanced to the cecum, identified by appendiceal orifice and ileocecal valve. The colonoscopy was performed without difficulty. The patient tolerated the procedure well. The quality of the bowel preparation was inadequate. The ileocecal valve, appendiceal orifice, and rectum were photographed. Moderate Sedation: The administration of moderate sedation was initiated at 11:37 AM. Moderate (conscious) sedation was personally administered by the endoscopist. The following parameters were monitored: oxygen saturation, heart rate, blood pressure, respiratory rate, EKG, adequacy of pulmonary ventilation, and response to care. Total physician intraservice time was 17 minutes. Findings: The perianal and digital rectal examinations were normal. A diminutive polyp was found in the sigmoid colon. The polyp was sessile. The polyp was removed with a jumbo cold forceps. Resection and retrieval were complete. The exam was otherwise without abnormality. Non-bleeding internal hemorrhoids were found during retroflexion. The hemorrhoids were mild and small. Impression: - Preparation of the colon was inadequate. - One diminutive polyp in the sigmoid colon, removed with a jumbo cold forceps. Resected and retrieved. - The examination was otherwise normal. - Non-bleeding internal hemorrhoids. Recommendation: - Repeat colonoscopy in 3 years for surveillance. - Return to nurse practitioner at appointment to be scheduled. - Patient has a contact number available for emergencies. The signs and symptoms of potential delayed complications were discussed with the patient. Return to normal activities tomorrow. Written discharge instructions were provided to the patient. - Continue present medications. - Resume previous diet. Procedure Code(s): --- Professional --- 23374, Colonoscopy, flexible; with biopsy, single or multiple G0500, Moderate sedation services provided by the same physician or other qualified health healthcare network pricing consultant performing a gastrointestinal endoscopic service that sedation supports, requiring the presence of an independent trained observer to assist in the monitoring of the patient's level of consciousness and physiological status; initial 15 minutes of intra-service time; patient age 5 years or older (additional time may be reported with 95738, as appropriate) Diagnosis Code(s): --- Professional --- Z12.11, Encounter for screening for malignant neoplasm of colon Z86.010, Personal history of colonic polyps K64.8, Other hemorrhoids D12.5, Benign neoplasm of sigmoid colon CPT copyright 2020 [employer]. All rights reserved. The codes documented in this report are preliminary and upon social media content specialist review may be revised to meet current compliance requirements. Attending Participation: I personally performed the entire procedure. Scope In: 11:39:45 AM Scope Out: 11:54:37 AM MD Demetri Sainz MD 02/19/2024 12:01:02 PM This report has been signed electronically by Demetri Lord MD Number of Addenda: 0 Note Initiated On: 02/19/2024 11:28 AM Estimated Blood Loss: Estimated blood loss was minimal. [facility] Colonoscopy Study observatio non 02-19-2024 [facility] Gastrointestinal Endoscopy Patient Name: Maria E Guthrie Procedure Date: 02/19/2024 11:28 AM Date of : 1950 Admit Type: Outpatient Age: 73 Gender: Male Note Status: Finalized Procedure: Colonoscopy Indications: High risk colon cancer surveillance: Personal history of colonic polyps Providers: Demetri Lord MD Patient Profile: This is a 73 year old male. Refer to note in patient chart for documentation of history and physical. Last Colonoscopy: June 2020. Referring Physician: Maddie Bernstein (Referring MD) Medicines: Fentanyl 100 micrograms IV, Midazolam 5 mg IV Complications: No immediate complications. Estimated blood loss: Minimal. Requesting Provider: Procedure: Pre-Anesthesia Assessment: - Prior to the procedure, a History and Physical was performed, and patient medications and allergies were reviewed. The patient's tolerance of previous anesthesia was also reviewed. The risks and benefits of the procedure and the sedation options and risks were discussed with the patient. All questions were answered, and informed consent was obtained. Prior Anticoagulants: The patient has taken no anticoagulant or antiplatelet agents. ASA Grade Assessment: III - A patient with severe systemic disease. After reviewing the risks and benefits, the patient was deemed in satisfactory condition to undergo the procedure. After I obtained informed consent, the scope was passed under direct vision. Throughout the procedure, the patient's blood pressure, pulse, and oxygen saturations were monitored continuously. The Colonoscope was introduced through the anus and advanced to the cecum, identified by appendiceal orifice and ileocecal valve. The colonoscopy was performed without difficulty. The patient tolerated the procedure well. The quality of the bowel preparation was inadequate. The ileocecal valve, appendiceal orifice, and rectum were photographed. Moderate Sedation: The administration of moderate sedation was initiated at 11:37 AM. Moderate (conscious) sedation was personally administered by the endoscopist. The following parameters were monitored: oxygen saturation, heart rate, blood pressure, respiratory rate, EKG, adequacy of pulmonary ventilation, and response to care. Total physician intraservice time was 17 minutes. Findings: The perianal and digital rectal examinations were normal. A diminutive polyp was found in the sigmoid colon. The polyp was sessile. The polyp was removed with a jumbo cold forceps. Resection and retrieval were complete. The exam was otherwise without abnormality. Non-bleeding internal hemorrhoids were found during retroflexion. The hemorrhoids were mild and small. Impression: - Preparation of the colon was inadequate. - One diminutive polyp in the sigmoid colon, removed with a jumbo cold forceps. Resected and retrieved. - The examination was otherwise normal. - Non-bleeding internal hemorrhoids. Recommendation: - Repeat colonoscopy in 3 years for surveillance. - Return to nurse practitioner at appointment to be scheduled. - Patient has a contact number available for emergencies. The signs and symptoms of potential delayed complications were discussed with the patient. Return to normal activities tomorrow. Written discharge instructions were provided to the patient. - Continue present medications. - Resume previous diet. Procedure Code(s): --- Professional --- 06395, Colonoscopy, flexible; with biopsy, single or multiple G0500, Moderate sedation services provided by the same physician or other qualified health healthcare network pricing consultant performing a gastrointestinal endoscopic service that sedation sup (more content not included)... [facility] Radiology Study observation (narrative) [facility] [employer] HISTORY PHYSICALon HISTORY PHYSICAL HNO ID: [id number] Author: DEMETRI LORD MD Service: General Surgery Author Type: Physician Type: H&P Filed: 02/19/2024 10:54 Note Text: HISTORY AND PHYSICAL Maria E Guthrie DOB: 1950 REFERRING PHYSICIAN: No referring provider defined for this encounter. CHIEF COMPLAINT: Patient presents with: Consult: colonoscopy HPI: Maria E is a 73 year old male referred for endoscopy. Maria E notes due for screening colonoscopy- hx of polyps (2020). Maria E denies abdominal pain.. Maria E denies diarrhea. Maria E denies constipation. Maria E denies a change in bowel habits. Maria E denies melena. Maria E denies bright red blood per rectum. Maria E denies hemorrhoids. Maria E denies heartburn. Maria E denies dysphagia. Maria E denies a history of ulcers/ peptic ulcer disease. Medica history is significant for HLD, HTN, CAD with stent x 1 (2006), gout and BPH. Denies CP, SOB, dizziness, palpitations, syncope, edema, recent hospitalizations Maria E denies family history of colon issues. Maria E has undergone prior endoscopy. Last colonoscopy 06/[address] Park at [facility]. Sedation:Midazolam 5 mg IV, Fentanyl 100 micrograms IV Impression: - Three small polyps in the proximal transverse colon, in the distal transverse colon and in the cecum, removed with a cold snare. Resected and retrieved. - Diverticulosis in the entire examined colon. - The examination was otherwise normal on direct and retroflexion views. CONVERTED FINAL DIAGNOSIS 1. Colon, cecum, polyp, biopsy (A) Tubular adenoma. 2. Colon, transverse, polyp, biopsy (B) Tubular adenoma. 3. Colon, distal transverse, polyp, biopsy (C) Tubular adenoma. CURRENT MEDICATIONS Current Outpatient Medications Medication Sig alirocumab (PRALUENT) 150 mg/mL pen Inject 150 mg subcutaneously. losartan (COZAAR) 100 mg tablet Take 100 mg by mouth. fluticasone (FLONASE) 50 mcg/actuation nasal spray Use 1 [place] in the nose once daily. cyanocobalamin (VITAMIN B-12) 500 mcg tablet Take 1 tablet by mouth once daily. clotrimazole (LOTRIMIN) 1 % cream Apply to affected area. allopurinol (ZYLOPRIM) 100 mg tablet Take 400 mg by mouth once daily. METFORMIN HCL (METFORMIN ORAL) Take by mouth. metoprolol tartrate, short acting, (LOPRESSOR) 25 mg tablet Take 1 tablet by mouth twice daily. Aspirin 81 mg Tab Take 1 tablet by mouth once daily. Take with food. ezetimibe (ZETIA) 10 mg ORAL tablet Take one(1) tablet daily. peg 3350-Electrolytes (GOLYTELY) 236-22.74-6.74 -5.86 gram suspension Take 4,000 mL by mouth one time only for 1 dose. Refer to printed prep instructions from your provider. No current facility-administered medications for this visit. ALLERGIES: Zocor [Simvastatin] PAST MEDICAL HISTORY PAST MEDICAL HISTORY Diagnosis Date Acute myocardial infarction of other specified sites, episode of care unspecified 2006 Myocardial Infarction, had angioplasty Coronary artery disease Diabetes (HCC) Gout Mixed hyperlipidemia Hyperlipidemia Unspecified essential hypertension Essential hypertension PAST SURGICAL HISTORY PAST SURGICAL HISTORY Procedure Laterality Date ARTHROSCOPY KNEE DIAGNOSTIC W/WO SYNOVIAL BX SPX Arthroscopy, knee X2 COLONOSCOPY SCRN NOT HIGH RISK 06/30/2020 CORONARY ENDARTERCOMY OPEN ANY METHOD 08/2006 Angioplasty, 1 DRUG ELUTING stent JOINT REPLACEMENT HX PAST SURGICAL HISTORY OF 04/2009 Right rotator cuff repair surgery PAST SURGICAL HISTORY OF 2010 L rotator cuff TOTAL KNEE REPLACEMENT Bilateral 03/20/2019 VASCULAR SURGERY PROCEDURE FAMILY HISTORY FAMILY HISTORY Problem Relation Age of Onset Cancer Mother Bone COPD Father Coronary Artery Disease Brother SOCIAL HISTORY Social History Tobacco Use Smoking status: Never Smokeless tobacco: Never Vaping Use Vaping status: Never Used Substance Use Topics Alcohol use: No Drug use: No REVIEW OF SYMPTOMS: The review of systems data was entered by the nurse and reviewed by wi Nursing Notes: Francisca Spann RN 02/16/2024 2:03 PM Signed REVIEW OF SYSTEMS: General: The patient denies fatigue, denies weight loss, denies weight gain, denies feeling hot, and denies feelings of cold. Eyes: The patient denies glaucoma, denies eye injury/surgery, wears glasses or contacts. Ear/Nose/Throat: The patient NOTES allergies, denies hayfever, denies ear infections, and denies bloody noses. Cardiovascular: The patient denies chest pain, NOTES heart disease, NOTES high blood pressure,NOTES cardiac stent, NOTES prior heart attack, denies irregular heart beat, NOTES high cholesterol, denies poor circulation, denies heart failure, other cardiac issues, denies claudication, denies cold feet, denies peripheral arterial stent. Respiratory: The patient denies tuberculosis, denies pneumonia, denies frequent cough, denies pulmonary embolism, denies shortness of breath, and denies coughing up blood. Gastrointestinal: The pa (more content not included)... [facility] SURGICAL PATHOLOGYon 024 CASE REPORT [facility] Comment on above: Order Comment: Speci men Type: TISSUE SPECIMEN Ordering Facility: [facility] Address: [address] [place] [address] Result Comment: Surg ical Pathology Report Case: [id number] Authorizing Provider: Demetri Lord MD Collected: 02/19/2024 11:51 AM Ordering Location: Ambulatory Surgery Received: 02/19/2024 12:46 PM Pathologist: Tracie Hwang MD Specimen: Colon, Sigmoid, Polyp Performed By: #### S #### [facility] CLIA [id number] [address] [place] [address] [place] FINAL DIAGNOSIS [facility] Comment on above: Order Comment: Speci men Type: TISSUE SPECIMEN Ordering Facility: [facility] Address: [address] [place] [address] Result Comment: A. C olon, sigmoid, polyp, polypectomy -Tubular adenoma Performed By: #### S #### [facility] CLIA [id number] [address] [place] [address] [place] FINAL PERFORMING LAB [facility] Comment on above: Order Comment: Speci men Type: TISSUE SPECIMEN Ordering Facility: [facility] Address: [address] [place] [address] Result Comment: Diag nostic interpretation performed at [facility], [address] [place] [address] CLIA# [id number] Aircraft Fueler: Karel Singer M.D. Performed By: #### S #### [facility] CLIA [id number] [address] [place] [address] [place] GROSS DESCRIPTION Normal [facility] Comment on above: Order Comment: Speci men Type: TISSUE SPECIMEN Ordering Facility: [facility] Address: [address] [place] [address] Result Comment: A. Luna olon, Sigmoid, Polyp Received in formalin is one piece of simon, soft tissue measuring 0.4 x 0.3 x 0.2 cm. Totally submitted in one cassette. KDK February 19, 2024 7:33 PM Gross examination performed at [facility], [address] [place] [address] Performed By: #### S #### [facility] CLIA [id number] [address] [place] [id number] CNOVon 02-16-2024 CNOV Office Visit (GENSWS ) MARIA E GUTHRIE ([id number]) 1950 Date Time Provider Department 02/16/24 2:00 PM MADDIE BERNSTEIN During your visit today, we recorded the following information about you: Temperature Pulse Blood pressure Weight 97.8 degrees 80/minute 138/82 90.9 kg Height 1.829 m Maddie Bernstein APRN.CNP 02/16/2024 2:24 PM Signed HISTORY AND PHYSICAL Maria E Guthrie : 1950 REFERRING PHYSICIAN: No referring provider defined for this encounter. CHIEF COMPLAINT: Patient presents with: Consult: colonoscopy HPI: Maria E is a 73 year old male referred for endoscopy. Maria E notes due for screening colonoscopy- hx of polyps (2020). Maria E denies abdominal pain.. Maria E denies diarrhea. Maria E denies constipation. Maria E denies a change in bowel habits. Maria E denies melena. Maria E denies bright red blood per rectum. Maria E denies hemorrhoids. Maria E denies heartburn. Maria E denies dysphagia. Maria E denies a history of ulcers/ peptic ulcer disease. Medica history is significant for HLD, HTN, CAD with stent x 1 (2006), gout and BPH. Denies CP, SOB, dizziness, palpitations, syncope, edema, recent hospitalizations Maria E denies family history of colon issues. Maria E has undergone prior endoscopy. Last colonoscopy 06/[address] Park at [facility]. Sedation:Midazolam 5 mg IV, Fentanyl 100 micrograms IV Impression: - Three small polyps in the proximal transverse colon, in the distal transverse colon and in the cecum, removed with a cold snare. Resected and retrieved. - Diverticulosis in the entire examined colon. - The examination was otherwise normal on direct and retroflexion views. CONVERTED FINAL DIAGNOSIS 1. Colon, cecum, polyp, biopsy (A) Tubular adenoma. 2. Colon, transverse, polyp, biopsy (B) Tubular adenoma. 3. Colon, distal transverse, polyp, biopsy (C) Tubular adenoma. Current Outpatient Medications Medication Sig alirocumab (PRALUENT) 150 mg/mL pen Inject 150 mg subcutaneously. losartan (COZAAR) 100 mg tablet Take 100 mg by mouth. fluticasone (FLONASE) 50 mcg/actuation nasal spray Use 1 [place] in the nose once daily. cyanocobalamin (VITAMIN B-12) 500 mcg tablet Take 1 tablet by mouth once daily. clotrimazole (LOTRIMIN) 1 % cream Apply to affected area. allopurinol (ZYLOPRIM) 100 mg tablet Take 400 mg by mouth once daily. METFORMIN HCL (METFORMIN ORAL) Take by mouth. metoprolol tartrate, short acting, (LOPRESSOR) 25 mg tablet Take 1 tablet by mouth twice daily. Aspirin 81 mg Tab Take 1 tablet by mouth once daily. Take with food. ezetimibe (ZETIA) 10 mg ORAL tablet Take one(1) tablet daily. peg 3350-Electrolytes (GOLYTELY) 236-22.74-6.74 -5.86 gram suspension Take 4,000 mL by mouth one time only for 1 dose. Refer to printed prep instructions from your provider. No current facility-administered medications for this visit. ALLERGIES: Zocor [Simvastatin] PAST MEDICAL HISTORY Diagnosis Date Acute myocardial infarction of other specified sites, episode of care unspecified 2006 Myocardial Infarction, had angioplasty Coronary artery disease Diabetes (HCC) Gout Mixed hyperlipidemia Hyperlipidemia Unspecified essential hypertension Essential hypertension PAST SURGICAL HISTORY Procedure Laterality Date ARTHROSCOPY KNEE DIAGNOSTIC W/WO SYNOVIAL BX SPX Arthroscopy, knee X2 COLONOSCOPY SCRN NOT HIGH RISK 06/30/2020 CORONARY ENDARTERCOMY OPEN ANY METHOD 08/2006 Angioplasty, 1 DRUG ELUTING stent JOINT REPLACEMENT HX PAST SURGICAL HISTORY OF 04/2009 Right rotator cuff repair surgery PAST SURGICAL HISTORY OF 2010 L rotator cuff TOTAL KNEE REPLACEMENT Bilateral 03/20/2019 VASCULAR SURGERY PROCEDURE FAMILY HISTORY Problem Relation Age of Onset Cancer Mother Bone COPD Father Coronary Artery Disease Brother Social History Tobacco Use Smoking status: Never Smokeless tobacco: Never Vaping Use Vaping status: Never Used Substance Use Topics Alcohol use: No Drug use: No REVIEW OF SYMPTOMS: The review of systems data was entered by the nurse and reviewed by wi Nursing Notes: Francisca Spann RN 02/16/2024 2:03 PM Signed REVIEW OF SYSTEMS: General: The patient denies fatigue, denies weight loss, denies weight gain, denies feeling hot, and denies feelings of cold. Eyes: The patient denies glaucoma, denies eye injury/surgery, wears glasses or contacts. Ear/Nose/Throat: The patient NOTES allergies, denies hayfever, denies ear infections, and denies bloody noses. Cardiovascular: The patient denies chest pain, NOTES heart disease, NOTES high blood pressure,NOTES cardiac stent, NOTES prior heart attack, denies irregular heart beat, NOTES high cholesterol, denies poor circulation, denies heart failure, other cardiac issues, denies claudication, denies cold feet, denies peripheral arterial stent. Respir (more content not included)... [facility]UTH[facility] ([id number]) 1950 M Date Time Provider Department 02/16/24 MOLLY BERNSTEIN During your visit today, we recorded the following information about you: Melanie Marcelino 02/16/2024 2:37 PM Signed 02-19-2024 Colonoscopy concepción EFREN Cook prep, nurse went over instructions yudy has direct number to contact for any questions or concerns., Instructed patient to arrive at 1045 in [facility] Allergies As of Date: 02/16/2024 Noted Allergy Reaction ZOCOR (SIMVASTATIN) 08/15/2006 5 - Intolerance Comments: myalgias Date Reviewed: 02/16/2024 Reviewed by: Maddie Bernstein APRN.RELIGIOUS EDUCATOR - Fully Assessed Reason for Visit: 02-19-2024 Colonscoopy [Other] Prescriptions as of 03/18/2024 - alirocumab (PRALUENT) 150 mg/mL pen Inject 150 mg subcutaneously. - losartan (COZAAR) 100 mg tablet Take 100 mg by mouth. - fluticasone (FLONASE) 50 mcg/actuation nasal spray Use 1 [place] in the nose once daily. - cyanocobalamin (VITAMIN B-12) 500 mcg tablet Take 1 tablet by mouth once daily. - clotrimazole (LOTRIMIN) 1 % cream Apply to affected area. - allopurinol (ZYLOPRIM) 100 mg tablet Take 400 mg by mouth once daily. - METFORMIN HCL (METFORMIN ORAL) Take by mouth. - metoprolol tartrate, short acting, (LOPRESSOR) 25 mg tablet Take 1 tablet by mouth twice daily. - Aspirin 81 mg Tab Take 1 tablet by mouth once daily. Take with food. - ezetimibe (ZETIA) 10 mg ORAL tablet Take one(1) tablet daily. Problem List As Of Date 02/16/2024 Noted Resolved GOUT NOS [M10.9] 08/15/2006 HYPERLIPIDEMIA NEC/NOS [E78.5] 08/15/2006 Cor Athrscl-Uns Vessel [I25.10] 12/24/2008 Unspecified Essential Hypertension [I10] Mixed Hyperlipidemia [E78.2] Special screening for malignant neoplasms, colo*02/25/2010 PTSD (post-traumatic stress disorder) [F43.10] 06/11/2012 BPH (benign prostatic hypertrophy) [N40.0] 06/11/2012 Encounter Status:Closed by MELANIE MARCELINO on 03/18/24 [facility] No Panel InformationOrdered By: Joe Joshua on 08-18-2023 Troponin I High Sensitivity 9 pg/mL 3.0-78.0 [facility] Comment on above: Please Note: New [place] Units and Gender Specific Reference Ranges. For more information see Policy Stat Procedure [place] High Sensitivity Troponin (TNIH) and attachments. Absolute lymphocyte countOrd ered By: Joe Joshua on 08-17-2023 Lymphocytes Auto (Unsp spec) [#/Vol] 2.02 10*3/uL 0.83-4.51 [facility] Automated lymphocyte count a s percentage of total leukocytesOrdered By: Joe Joshua on 08-17-2023 Lymphocytes/100 WBC Auto (Unsp spec) 49.8 % 19-41 [facility] Basophil percentageOrdered B y: Joe Joshua on 08-17-2023 Basophils/100 WBC (Bld) 0.5 % 0-1 [facility] Chloride [Moles/Vol] 101 mmol/L 98-107 [facility] Eosinophils/100 WBC (Bld) 0.7 % 0-5 [facility] Glucose [Mass/Vol] 195 mg/dL 74-106 [facility] Comment on above: Fasting Glucose resu lt greater than or equal to 126 mg/dL suggests DIABETES MELLITUS per A.D.A. criteria. Hemoglobin (Bld) [Mass/Vol] 15.4 g/dL 13.0-16.5 [facility] Monocytes/100 WBC (Bld) 10.1 % 0-10 [facility] Neutrophils (Bld) [#/Vol] 1.6 10*3/uL 2.0-7.7 [facility] Neutrophils/100 WBC (Bld) 38.9 % 47-70 [facility] Potassium [Moles/Vol] 3.1 mmol/L 3.5-5.1 [facility] Sodium [Moles/Vol] 135 mmol/L 136-145 [facility] WBC (Bld) [#/Vol] 4.1 10*3/uL 4.4-11.0 [facility] Determination of erythrocyte mean corpuscular volume (MCV)Ordered By: Joe Joshua on 08-17-2023 MCV (RBC) [Entitic vol] 87.0 fL 80-94 [facility] Erythrocyte distribution wid th ratioOrdered By: Joe Joshua on 08-17-2023 Erythrocyte distribution width (RBC) [Ratio] 13.0 % 11.6-14.6 [facility] Erythrocyte distribution wid th standard deviationOrdered By: Joe Joshua on 08-17-2023 Erythrocyte distribution width (RBC) [Entitic vol] 40.8 fL 35.1-43.9 [facility] Hematocrit Auto (Bld) [Volum e fraction]Ordered By: Joe Joshua on 08-17-2023 Hematocrit (Bld) [Volume fraction] 45.4 % 40-54 [facility] Immature granulocytes/100 WB C Auto (Bld)Ordered By: Joe Joshua on 08-17-2023 Immature granulocytes/100 WBC (Bld) 0.000 % 0.0-0.9 [facility] Comment on above: IG% - Immature Granu locytes (promyelocytes, myelocytes and metamyelocytes) > 1% indicates that a LEFT SHIFT is Present. Laboratory - Chemistry and C hemistry - challengeOrdered By: Joe Joshua on 08-17-2023 CO2 [Moles/Vol] 29.0 mmol/L 21.0-32.0 [facility] Urea nitrogen/Creatinine [Mass ratio] 18.5 mg/mg 10-20 [facility] Laboratory - Hematology and Cell countsOrdered By: Joe Joshua on 08-17-2023 MCH (RBC) [Entitic mass] 29.5 pg 27.0-32.0 [facility] MCHC (RBC) [Mass/Vol] 33.9 g/dL 32-36 [facility] Nucleated RBC/100 WBC (Bld) [Ratio] 0 % 0-5 [facility] Platelet mean volume (Bld) [Entitic vol] 10.7 fL 6.2-12.0 [facility] Platelets (Bld) [#/Vol] 147 10*3/uL 150-450 [facility] No Panel InformationOrdered By: Joe Joshua on 08-17-2023 D-Dimer Quantitative (PE/DVT) 0.44 FEU/ug/m 0.27-0.49 [facility] Comment on above: NORMAL D-Dimer level (<0.50) indicates no DVT or PE. Estimated Creatinine Clearance Calc 72.22 ml/min [facility] Estimated GFR (MDRD) Amer 97 mL/min >60 [facility] Comment on above: GFR Calc Estimated GFR (MDRD) Non-Af Amer 80 mL/min >60 [facility] Comment on above: Non- GFR Calc RBC Auto (Bld) [#/Vol]Ordere d By: Joe Joshua on 08-17-2023 RBC (Bld) [#/Vol] 5.22 10*6/uL 4.6-6.2 [facility] Serum or plasma calcium collin urement (mass/volume)Ordered By: Joe Joshua on 08-17-2023 Calcium [Mass/Vol] 9.4 mg/dL 8.5-10.1 [facility] Serum or plasma creatinine m easurement (mass/volume)Ordered By: Joe Joshua on 08-17-2023 Creatinine [Mass/Vol] 0.97 mg/dL 0.70-1.30 [facility] Comment on above: The validity of the calculated GFR & GFRAA in patients over 70 years has not been determined. Clinical correlation is essential. Serum or plasma urea nitroge n measurement (mass/volume)Ordered By: Joe Joshua on 08-17-2023 Urea nitrogen [Mass/Vol] 18 mg/dL 7-18 [facility] Thin prep Papanicolaou smear with manual screeningOrdered By: Joe Joshua on 08-17-2023 Thin prep Papanicolaou smear with manual screening 5 5-15 [facility] No Panel Informationon 05-17 Influenza Types A,B Rapid (Clinic) Pos FLU A &Neg FLU B [facility] Office Visiton 11-08-2016 Fall risk assessment No [facility] Work Phone: [phone] Protein mass conc Done [facility] Work Phone: [phone] Chart Maintenanceon 11-07-19 17 Left ventricular Ejection fraction 75 % [facility] Work Phone: Office Visiton 03-29-2016 Dietary management education, guidance, and counseling (procedure) yes Invalid Interpretation Code [facility] Work Phone: [phone] Documentation of current medications (procedure) Done Invalid Interpretation Code [facility] Work Phone: [phone] Tobacco smoking status NHIS Never smoker [facility] Work Phone: [phone] Tobacco use CPHS Never smoker Invalid Interpretation Code [facility] Work Phone: [phone] Clinical Lists Update: Prelo radiographic technologist 12-22-2015 Alanine aminotransferase (ALT) 45 U/L [facility] Work Phone: [phone] Albumin 4.1 g/dL [facility] Work Phone: [phone] Alkaline phosphatase (ALP) 51 U/L Invalid Interpretation Code [facility] Work Phone: [phone] ALP enzyme act/vol (Bld) 51 U/L [facility] Work Phone: [phone] Anion gap 16 mmol/L Invalid Interpretation Code [facility] Work Phone: [phone] Anion gap molar conc 16 mmol/L [facility] Work Phone: [phone] Aspartate aminotransferase (AST) 40 U/L [facility] Work Phone: [phone] Bilirubin (total) 0.5 mg/dL [facility] Work Phone: [phone] Calcium 8.9 mg/dL [facility] Work Phone: [phone] Chloride 109 mmol/L High [facility] Work Phone: [phone] Cholesterol 202 mg/dL High [facility] Work Phone: [phone] CO2 19 mmol/L Low [facility] Work Phone: [phone] CO2 ppres (BldV) 19 mmol/L Low [facility] Work Phone: [phone] Creatinine 1.0 mg/dL [facility] Work Phone: [phone] Erythrocyte distribution width Ratio (RBC) 13.6 % [facility] Work Phone: [phone] Erythrocytes (RBC) 5.69 10*6/uL Invalid Interpretation Code [facility] Work Phone: [phone] Glucose 117 mg/dL Invalid Interpretation Code [facility] Work Phone: [phone] Glucose mass conc 117 mg/dL [facility] Work Phone: [phone] HbA1c 6.5 % High [facility] Work Phone: [phone] HDL Cholesterol 45 mg/dL [facility] Work Phone: [phone] Hematocrit (HCT) 49.1 % Invalid Interpretation Code [facility] Work Phone: [phone] Hematocrit Volume Fraction (Bld) 49.1 % [facility] Work Phone: [phone] Hemoglobin (HGB) 16.6 g/dL [facility] Work Phone: [phone] LDL Cholesterol 130 mg/dL High [facility] Work Phone: [phone] Magnesium 2.3 mg/dL [facility] Work Phone: [phone] MCH 29.2 pg Invalid Interpretation Code [facility] Work Phone: [phone] MCH Entitic mass (RBC) 29.2 pg [facility] Work Phone: [phone] MCHC 33.8 g/dL Invalid Interpretation Code [facility] Work Phone: [phone] MCHC mass conc (RBC) 33.8 g/dL [facility] Work Phone: [phone] MCV 86.3 fL Invalid Interpretation Code [facility] Work Phone: [phone] MCV Entitic volume (RBC) 86.3 fL [facility] Work Phone: [phone] Platelets 245 10*3/mm3 Invalid Interpretation Code [facility] Work Phone: [phone] Platelets #/vol (Bld) 245 10*3/mm3 [facility] Work Phone: [phone] Potassium 3.9 mmol/L [facility] Work Phone: [phone] Protein 7.3 g/dL [facility] Work Phone: [phone] RBC #/vol (Bld) 5.69 10*6/uL [facility] Work Phone: [phone] RDW-CA 13.6 % Invalid Interpretation Code [facility] Work Phone: [phone] Sodium 140 mmol/L [facility] Work Phone: [phone] Thyroid stimulating hormone (TSH) 1.23 u[iU]/mL [facility] Work Phone: [phone] Thyroxine (T4) free 1.05 ng/dL [facility] Work Phone: [phone] Triglyceride 272 mg/dL High [facility] Work Phone: [phone] Urea nitrogen 19 mg/dL [facility] Work Phone: [phone] WBC #/vol (Bld) 4.84 10*3/uL [facility] Work Phone: [phone] WBC (Leukocytes) 4.84 10*3/uL Invalid Interpretation Code [facility] Work Phone: [phone] Lab Report: Lipid Profileon 04-08-2015 very low density lipoproteins 35 mg/dL 5-40 [facility] Work Phone: [phone] Lab Report: Liver Profileon 04-08-2015 Bilirubin (direct) 0.12 mg/dL 0.00-0.30 [facility] Work Phone: [phone] Globulin 3.2 g/dL Invalid Interpretation Code 2.3-3.5 [facility] Work Phone: [phone] Globulin mass conc (S) 3.2 g/dL 2.3-3.5 [facility] Work Phone: [phone] Clinical Lists Update: Prelo radiographic technologist 04-02-2014 Globulin 3.0 g/dL Invalid Interpretation Code [facility] Work Phone: [phone] Globulin mass conc (S) 3.0 g/dL [facility] Work Phone: [phone] External Other: Preferred Me thod of Contacton 04-02-2014 methcontact secmsg [facility] Work Phone: [phone] Patient's prefered method of contact secmsg Invalid Interpretation Code [facility] Work Phone: [phone] Lab Report: Liver Profileon 04-02-2014 ALK P 49 U/L Critically low 50-136 [facility] Work Phone: [phone] GE use only - for [employer] import when terms are not otherwise specified 49 U/L Critically low 50-136 [facility] Work Phone: [phone] Office Visiton 03-31-2014 cardiac risk group C [facility] Work Phone: [phone] General cardiovascular disease 10Y risk [#] [place] [facility] [employer] Work Phone: Vital Signs Date Time Vital Sign Value Performing Clinician Alexa bedoya 12-24-2024 08:33-0400 Heart rate 58 /min Dr. Matt Saul MD Work Phone: [facility] 12-24-2024 08:26-0400 Body temperature 97.6 [degF] Dr. Matt Saul MD Work Phone: [facility] 12-24-2024 08:26-0400 Diastolic blood pressure 71 mm[Hg] Dr. Matt Saul MD Work Phone: 8(588)519-880233 [place] [address] 12-24-2024 08:26-0400 Respiratory rate 18 /min Dr. Matt Saul MD Work Phone: 7(546)397-098116 [address] 12-24-2024 08:26-0400 SaO2% (BldA) [Mass fraction] 95 % Dr. Matt Saul MD Work Phone: 6(321)406-743816 [address] 12-24-2024 08:26-0400 Systolic blood pressure 128 mm[Hg] Dr. Matt Saul MD Work Phone: 9(736)551-604216 [address] 12-23-2024 18:43-0400 Inhaled oxygen flow rate 2 L/min Dr. Matt Saul MD Work Phone: [facility] 12-23-2024 14:44-0400 Body height 182.[address] Matt Saul MD Work Phone: 5(228)[phone] [address] 12-23-2024 14:44-0400 Body mass index (BMI) [Ratio] 26.9 kg/m2 Dr. Matt Saul MD Work Phone: 7(769)[phone] [place] [address] 12-23-2024 14:44-0400 Body weight [address] Matt Saul MD Work Phone: 2(426)715-107535 [place] [address] 04-04-2024 14:18-0500 Body height 182.[address] Matt Saul MD Work Phone: 0(987)522-581916 [address] 04-04-2024 14:18-0500 Body mass index (BMI) [Ratio] 27.2 kg/m2 Dr. Matt Saul MD Work Phone: [facility] 04-04-2024 14:18-0500 Body weight 91.[address] Matt Saul MD Work Phone: [facility] 04-04-2024 14:18-0500 Diastolic blood pressure 90 mm[Hg] Dr. Matt Saul MD Work Phone: [facility] 04-04-2024 14:18-0500 Heart rate 69 /min Dr. Matt Saul MD Work Phone: [facility] 04-04-2024 14:18-0500 Respiratory rate 16 /min Dr. Matt Saul MD Work Phone: [facility] 04-04-2024 14:18-0500 Systolic blood pressure 132 mm[Hg] Dr. Matt Saul MD Work Phone: [facility] 02-19-2024 12:20-0500 Diastolic blood pressure 72 mm[Hg] Demetri Lord MD Work Phone: [facility] 02-19-2024 12:20-0500 Heart rate 55 /min Demetri Lord MD Work Phone: [facility] 02-19-2024 12:20-0500 Respiratory rate 16 /min Demetri Lord MD Work Phone: [facility] 02-19-2024 12:20-0500 SaO2% (BldA) [Mass fraction] 95 % Demetri Lord MD Work Phone: [facility] 02-19-2024 12:20-0500 Systolic blood pressure 115 mm[Hg] Demetri Lord MD Work Phone: [facility] 02-19-2024 10:40-0500 Body mass index (BMI) [Ratio] 27.18 kg/m2 Demetri Lord MD Work Phone: [facility] 02-19-2024 10:40-0500 Body temperature 98.4 [degF] Demetri Lord MD Work Phone: [facility] 02-19-2024 10:40-0500 Body weight 90.9 kg Demetri Lord MD Work Phone: [facility] 02-16-2024 14:03-0400 Body height 182.9 cm Maddie Jakob ATHLETIC COACH.RELIGIOUS EDUCATOR Work Phone: [facility] 02-16-2024 14:03-0400 Body mass index (BMI) [Ratio] 27.18 kg/m2 Maddie Jakob ATHLETIC COACH.RELIGIOUS EDUCATOR Work Phone: [facility] 02-16-2024 14:03-0400 Body temperature 97.81 [degF] Maddie Jakob ATHLETIC COACH.RELIGIOUS EDUCATOR Work Phone: [facility] 02-16-2024 14:03-0400 Body weight 90.9 kg Maddie Jakob ATHLETIC COACH.RELIGIOUS EDUCATOR Work Phone: [facility] 02-16-2024 14:03-0400 Diastolic blood pressure 82 mm[Hg] Maddie Jakob ATHLETIC COACH.RELIGIOUS EDUCATOR Work Phone: [facility] 02-16-2024 14:03-0400 Heart rate 80 /min Maddie Jakob ATHLETIC COACH.RELIGIOUS EDUCATOR Work Phone: [facility] 02-16-2024 14:03-0400 SaO2% (BldA) [Mass fraction] 92 % Maddie Jakob ATHLETIC COACH.RELIGIOUS EDUCATOR Work Phone: [facility] 02-16-2024 14:03-0400 Systolic blood pressure 138 mm[Hg] Maddie Jakob ATHLETIC COACH.RELIGIOUS EDUCATOR Work Phone: [facility] 08-18-2023 01:00-0400 Body temperature 98.5 [degF] Dr. Matt Saul Work Phone: [facility] 08-18-2023 01:00-0400 Diastolic blood pressure 91 mm[Hg] Dr. Matt Saul Work Phone: [facility] 08-18-2023 01:00-0400 Heart rate 59 /min Dr. Matt Saul Work Phone: [facility] 08-18-2023 01:00-0400 Respiratory rate 18 /min Dr. Matt Saul Work Phone: 4(346)[phone] [address] 08-18-2023 01:00-0400 SaO2% (BldA) [Mass fraction] 98 % Dr. Matt Saul Work Phone: [facility] 08-18-2023 01:00-0400 Systolic blood pressure 148 mm[Hg] Dr. Matt Saul Work Phone: 7(637)[phone] [place] [address] 08-17-2023 21:03-0400 Body height 182.[address] Matt Saul Work Phone: 5(799)[phone] [place] [address] 08-17-2023 21:03-0400 Body mass index (BMI) [Ratio] 27.7 kg/m2 Dr. Matt Saul Work Phone: 4(096)091-249716 [address] 08-17-2023 21:03-0400 Body weight 92.[address] Matt Saul Work Phone: 9(301)361-122433 [place] [address] 05-17-2023 11:30-0500 Body mass index (BMI) [Ratio] 28.2 kg/m2 Dr. Matt Saul Work Phone: 2(256)833-642635 [place] [address] 05-17-2023 11:30-0500 Body temperature 97.8 [degF] Dr. Matt Saul Work Phone: 2(839)313-804035 [place] [address] 05-17-2023 11:30-0500 Body weight 94.[address] Matt Saul Work Phone: 4(113)[phone] [place] [address] 05-17-2023 11:30-0500 Diastolic blood pressure 76 mm[Hg] Dr. Matt Saul Work Phone: 4(316)013-573116 [address] 05-17-2023 11:30-0500 Heart rate 71 /min Dr. Matt Saul Work Phone: [facility] 05-17-2023 11:30-0500 Respiratory rate 16 /min Dr. Matt Saul Work Phone: [facility] 05-17-2023 11:30-0500 SaO2% (BldA) [Mass fraction] 96 % Dr. Matt Saul Work Phone: [facility] 05-17-2023 11:30-0500 Systolic blood pressure 140 mm[Hg] Dr. Matt Saul Work Phone: [facility] 02-08-2023 13:58-0400 Body height 182.[address] Armond Saul Work Phone: 6(788)297-279516 [address] 02-08-2022 13:51-0400 Body height 182.[address] Armond Saul Work Phone: 8(241)[phone] [address] 02-08-2022 13:51-0400 Body mass index (BMI) [Ratio] 26.9 kg/m2 Dr. Armond Saul Work Phone: 4(884)632-707035 [place] [address] 02-08-2022 13:51-0400 Body mass index (BMI) [Ratio] 28 kg/m2 Dr. Armond Saul Work Phone: [facility] 02-08-2022 13:51-0400 Body weight 90.[address] Armond Saul Work Phone: [facility] 02-08-2022 13:51-0400 Body weight 93.[address] Armond Saul Work Phone: [facility] 02-08-2022 13:51-0400 Diastolic blood pressure 91 mm[Hg] Dr. Armond Saul Work Phone: [facility] 02-08-2022 13:51-0400 Diastolic blood pressure 84 mm[Hg] Dr. Armond Saul Work Phone: [facility] 02-08-2022 13:51-0400 Heart rate 70 /min Dr. Armond Saul Work Phone: [facility] 02-08-2022 13:51-0400 Heart rate 67 /min Dr. Armond Saul Work Phone: [facility] 02-08-2022 13:51-0400 Respiratory rate 16 /min Dr. Armond Saul Work Phone: [facility] 02-08-2022 13:51-0400 Respiratory rate 18 /min Dr. Armond Saul Work Phone: [facility] 02-08-2022 13:51-0400 SaO2% (BldA) [Mass fraction] 95 % Dr. Armond Saul Work Phone: [facility] 02-08-2022 13:51-0400 SaO2% (BldA) [Mass fraction] 94 % Dr. Armond Saul Work Phone: [facility] 02-08-2022 13:51-0400 Systolic blood pressure 155 mm[Hg] Dr. Armond Saul Work Phone: [facility] 02-08-2022 13:51-0400 Systolic blood pressure 132 mm[Hg] Dr. Armond Saul Work Phone: [facility] 11-08-2016 13:10-0400 BMI (Body Mass Index) 28.87 kg/m2 [facility] Work Phone: 11-08-2016 13:10-0400 BP Diastolic 68 mm[Hg] [facility] Work Phone: 11-08-2016 13:10-0400 BP Systolic 130 mm[Hg] [facility] Work Phone: 11-08-2016 13:10-0400 Height 180.34 cm [facility] Work Phone: 11-08-2016 13:10-0400 Pulse (Heart Rate) 58 /min [facility] Work Phone: 11-08-2016 13:10-0400 Respiratory Rate 18 /min [facility] Work Phone: 11-08-2016 13:10-0400 Weight 93.9 kg [facility] Work Phone: 03-29-2016 13:01-0500 BMI (Body Mass Index) 29.43 kg/m2 [facility] Work Phone: 03-29-2016 13:01-0500 BP Diastolic 70 mm[Hg] [facility] Work Phone: 03-29-2016 13:01-0500 BP Systolic 142 mm[Hg] [facility] Work Phone: 03-29-2016 13:01-0500 BSA (Body Surface Area) 2.16 m2 [facility] Work Phone: 03-29-2016 13:01-0500 Height 180.34 cm [facility] Work Phone: 03-29-2016 13:01-0500 Pulse (Heart Rate) 66 /min [facility] Work Phone: 03-29-2016 13:01-0500 Respiratory Rate 18 /min [facility] Work Phone: 03-29-2016 13:01-0500 Weight 95.71 kg [facility] Work Phone: Encounters Encounter Date Encounter Type Care Provider Facility Start: 02-26-2025 ambulatory Oneyda Solano Facility:[facility] Start: 01-15-2025 Registered Recurring Oneyda Solano PA -Physical Therapy Work Phone: Start: 01-06-2025 End: 01-06-[address] Matt Saul MD Work Phone: -Laboratory Specimen Start: 01-06-2025 End: 01-06-[address] Matt Saul MD -Laboratory Specimen Work Phone: Start: 01-06-2025 End: 01-06-2025 ambulatory Matt Saul Facility:[facility] Start: 12-26-2024 Encounter for other preprocedural examination [facility] Start: 12-26-2024 Encounter for preprocedural cardiovascular examination [facility] Start: 12-24-2024 Non-patient / Non-visit Dr. Yumiko Carrillo MD -[facility] Work Phone: Start: 12-23-2024 Non-patient / Non-visit [facility] Mc[facility] Work Phone: Start: 12-23-2024 End: 12-24-2024 ambulatory Major Yi Facility:[facility] Start: 12-23-2024 End: 12-24-2024 Evaluation and management of inpatient Dr. Major Yi DO -Medical Surgical 3 Work Phone: Start: 12-23-2024 End: 12-24-[address] Matt Saul MD Work Phone: -Medical Surgical 3 Start: 11-27-2024 ambulatory Major Carrascoi ty:[facility] Start: 11-27-2024 Non-patient / Non-visit Dr. Seven Grey MD -[facility] Work Phone: Start: 11-26-2024 End: 11-26-[address] Matt Saul MD Work Phone: -Cat Scan [facility] Start: 11-26-2024 End: 11-26-[address] Major Yi DO -Cat Scan [facility] Work Phone: Start: 11-26-2024 End: 11-26-2024 ambulatory Major Yi Facility:[facility] Start: 07-09-2024 End: 07-09-2024 ambulatory Yang WAGGONER Facility:[facility] Start: 06-18-2024 End: 06-18-[address] Matt Saul MD Work Phone: [facility] Work Phone: Start: 06-18-2024 End: 06-18-[address] Matt Saul MD -Radiology, [place] Work Phone: Start: 06-18-2024 End: 06-18-2024 ambulatory Matt Colewyandanch Facility:[facility] Start: 04-04-2024 End: 04-04-[address] Nathan Purcell MD -[facility] Work Phone: Start: 04-04-2024 End: 04-04-2024 ambulatory Nathan Purcell Facility:[facility] Start: 02-26-2024 End: 02-26-[address] [facility] Facility:[facility] Start: 02-26-2024 End: 02-26-2024 Patient encounter procedure Maddie Bernstein APRN.RELIGIOUS EDUCATOR Work Phone: General Surgery Comment on above: History of colonic p olyps (Primary Dx) Start: 02-19-2024 End: 02-19-[address] [facility] Facility:[facility] Start: 02-19-2024 End: 02-19-2024 Subsequent hospital visit by physician Demetri Lord MD Work Phone: Ambulatory Surgery Comment on above: History of colonic p olyps [Z86.0100] Start: 02-16-2024 End: 02-16-[address] [facility] Facility:[facility] Start: 02-16-2024 End: 02-16-2024 Patient encounter procedure Maddie Bernstein APRN.RELIGIOUS EDUCATOR Work Phone: General Surgery Comment on above: History of colonic p olyps (Primary Dx); Screen for colon cancer Start: 02-16-2024 End: 03-18-2024 Telephone encounter Molly VEGA General Surgery Comment on above: 02-19-2024 [facility] Start: 08-17-2023 End: 08-18-2023 Emergency department patient visit Dr. Matt Saul Work Phone: [facility] Work Phone: Start: 05-17-2023 End: 05-17-[address] Matt Saul Work Phone: [facility] Work Phone: Start: 03-15-2023 Non-patient / Non-visit Dr. Jabier Saul Work Phone: [facility] Work Phone: Start: 03-14-2023 Non-patient / Non-visit Dr. Jabier Saul Work Phone: [facility] Start: 03-14-2023 End: 03-14-[address] Armond Saul Work Phone: [facility] Work Phone: Start: 03-14-2023 End: 03-14-[address] Armond Saul Work Phone: [facility] Work Phone: Start: 02-08-2023 End: 02-08-[address] Armond Saul Work Phone: [facility] Work Phone: Start: 05-20-2022 Non-patient / Non-visit Dr. Jabier Saul Work Phone: [facility] Start: 05-17-2022 Non-patient / Non-visit Dr. Jabier Saul Work Phone: [facility] Start: 05-17-2022 End: 05-17-[address] Armond Saul Work Phone: [facility] Work Phone: Start: 05-17-2022 End: 05-17-[address] [facility]ond [facility] Start: 05-04-[address] Rowdy Saul Work Phone: [facility] Start: 02-08-2022 End: 02-08-[address] Armond Saul Work Phone: [facility] Procedures Date Procedure Procedure Detail Performing Clinician Start: 01-06-2025 Urine microalbumin/creatinine ratio measurement Dr. Matt Saul MD Work Phone: Start: 12-24-[address] Matt Saul MD Work Phone: Start: 12-23-2024 Plain X-ray of shoulder Dr. 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 Matt Saul MD Work Phone: Start: 11-26-2024 CT of upper limb wit hout contrast Dr. Matt Saul MD Work Phone: Start: 06-18-2024 X-ray of ankle, thre e or more views Dr. Matt Saul MD Work Phone: Start: 06-18-2024 X-ray of foot, three or more views Dr. Matt Saul MD Work Phone: Start: 02-19-2024 Colonoscopy flx dx w/collj spec when pfrmd Maddie Bernstein ATHLETIC COACH.RELIGIOUS EDUCATOR Work Phone: Start: 02-19-2024 Colonoscopy Demetri abernathy MD Work Phone: Start: 08-17-2023 Plain chest X-ray Dr. Luna Saul Work Phone: Start: 03-14-2023 Radionuclide imaging of perfusion of myocardium under exercise stress Dr. Armond Saul Work Phone: Start: 06-30-2020 Shalonda Bernstein APRN.CNP Work Phone: Start: 11-08-2016 End: 11-08-2016 Dietary management education, guidance, and counseling Georgette Tabor Start: 11-08-2016 End: 11-08-2016 GERRY Patrick MD Work Phone: Start: 11-08-2016 End: 11-08-2016 Follow Up Appt 6 months Demetri Patrick MD Work Phone: Start: 10-19-2016 End: 11-08-2016 *Hepatic Function Panel Demetri Patrick MD Work Phone: Start: 10-19-2016 End: 11-08-2016 Lipid 1996 panel - Serum or Plasma Demetri Patrick MD Work Phone: Start: 03-29-2016 End: 03-29-2016 GERRY Patrick MD Work Phone: Start: 03-29-2016 End: 04-13-2016 Echocardiography Demetri Patrick MD Work Phone: Start: 03-29-2016 End: 03-29-2016 Follow Up Appt 6 months Demetri Patrick MD Work Phone: Start: 10-08-2015 End: 04-21-2016 Lipid panel [AGGREGATE] Demetri Patrick MD Work Phone: Start: 03-31-2015 End: 04-08-2015 *Hepatic Function Panel Demetri Patrick MD Work Phone: Start: 03-31-2015 End: 03-31-2015 GERRY Patrick MD Work Phone: Start: 03-31-2015 End: 03-31-2015 Follow Up Appt 1 year Krishna Ray Work Phone: Start: 03-31-2015 End: 04-08-2015 Lipid panel [AGGREGATE] Demetri Patrick MD Work Phone: Start: 12-29-2014 End: 01-07-2015 Stress Echocardiogram (treadmill) Demetri Patrick MD Work Phone: Start: 04-02-2014 Lipid 1996 panel - S marciano or Plasma Maddie Bernstein APRN.RELIGIOUS EDUCATOR Work Phone: Start: 03-31-2014 End: 04-02-2014 *Hepatic Function Panel Demetri Patrick MD Work Phone: Start: 03-31-2014 End: 03-31-2014 GERRY Patrick MD Work Phone: Start: 03-31-2014 End: 03-31-2014 Follow Up Appt 1 year Krishna Ray Work Phone: Start: 03-31-2014 End: 04-02-2014 Lipid panel [AGGREGATE] Demetri Patrick MD Work Phone: Start: 03-31-2014 End: 01-07-2015 Preoperative cardiovascular examination PRE-OPERATIVE CARDIOVASCULAR EXAMINATION Georgette Tabor Start: 03-31-2014 End: 04-03-2014 Stress Echocardiogram (treadmill) Demetri Patrick MD Work Phone: Start: 06-10-2013 End: 06-10-2013 GERRY Patrick MD Work Phone: Start: 06-10-2013 End: 06-10-2013 Follow Up Appt 1 year Krishna Ray Work Phone: Start: 03-25-2013 End: 03-25-2013 GERRY Patrick MD Work Phone: Start: 03-25-2013 End: 03-25-2013 Follow Up Appt 1 year Krishna Ray Work Phone: Start: 03-21-2013 Placement of stent i n coronary artery Status post cardiac stent placement Georgette Tabor Start: 08-17-2006 History of placement of stent for coronary artery disease History of coronary artery stent placement Dr. Nathan Purcell MD Comment on above: PCI-TIFFANI-LCx 08/2006 Plan of Treatment Date Care Activity Detail Author Start: 01-04-2034 Urine microalbumin profile DTa P,Tdap,Td Vaccine (4 - Td or Tdap) [facility] Start: 02-18-2027 Screening for malign ant neoplasm of colon [facility] Start: 12-24-2024 Patient discharge [facility] Start: 12-23-2024 Care regimes management [facility] Start: 12-23-2024 Notification of physician [facility] Start: 12-23-2024 [facility] Start: 12-23-2024 Application of intermittent pneumatic compression device [facility] Start: 12-23-2024 Following clinical p athway protocol [facility] Start: 12-23-2024 Anes arthroscopic to bernard shoulder replacement ANESTH SHOULDER REPLACEMENT [facility] Start: 12-23-2024 Prosthetic total arthroplasty of left shoulder RECONSTRUCT SHOULDER JOINT [facility] Start: 12-23-2024 Admission procedure [facility] Start: 12-23-2024 Ambulation therapy management [facility] Start: 12-23-2024 Application of device [facility] Start: 12-23-2024 Assessment of risk o f venous thromboembolism [facility] Start: 12-23-2024 Catheterization of vein [facility] Start: 12-23-2024 Following clinical p athway protocol [facility] Start: 12-23-[address] [facility] Start: 12-23-2024 Introduction of urin angeline catheter [facility] Start: 12-23-2024 Measuring intake and output [facility] Start: 12-23-2024 Neurovascular assessment [facility] Start: 12-23-2024 Patient education [facility] Start: 12-23-2024 Procedure discontinued [facility] Start: 12-23-2024 Provision of activit y privileges [facility] Start: 12-23-2024 Recommendation to co ritika with treatment [facility] Start: 12-23-2024 Referral to occupati onal therapist [facility] Start: 12-23-2024 Vital signs measurements [facility] Start: 12-23-2024 Wound care [facility] Start: 12-23-2024 [facility] Start: 12-23-2024 Consultation [facility] Start: 02-26-2024 End: 02-26-2024 Patient encounter procedure 02/26/2024 1:00 PM EST Office Visit General Surgery [address] [place] [address] Maddie Bernstein APRN.RELIGIOUS EDUCATOR [address] [place] [address] Colonsocopy follow up 02-19-2024 General Surgery Comment on above: Colonsocopy follow u p 02-19-2024 Start: 02-19-2024 End: 02-19-2024 Patient encounter procedure 02/19/2024 11:45 AM EST Appointment Ambulatory Surgery [address] [place] [address] Demetri Lord MD [address] [place] [address] Ambulatory Surgery Start: 08-18-2023 [facility] Start: 08-17-2023 [facility] Start: 07-01-2023 Screening for malign ant neoplasm of colon [facility] Start: 04-17-2023 Advance Directive Discussion Advance Directive Discussion [facility] Start: 03-21-2022 Diabetes Screening Diabetes Screenin g [facility] Start: 11-15-2021 Pneumococcal Vaccine : 65+ (2 of 2 - PPSV23 or PCV20) Pneumococcal Vaccine: 65+ (2 of 2 - PPSV23 or PCV20) [facility] Start: 04-02-2019 Lipid panel Lipid Screening [facility] Start: 05-11-2017 End: 05-11-2017 Appointment Appointment [facility] Work Phone: Start: 11-08-2016 End: 11-08-2016 Appointment Appointment [facility] Work Phone: Start: 11-08-2016 End: 11-08-2016 *Hepatic Function Panel *Hepatic Function Panel [facility] Work Phone: Start: 11-08-2016 End: 11-08-2016 GERRY GARRETT [facility] Work Phone: Start: 11-08-2016 End: 11-08-2016 Follow Up Appt 6 months Follow Up Appt 6 months [facility] Work Phone: Start: 11-08-2016 End: 11-08-2016 Lipid 1996 panel *Lipid Profile CC PCP [facility] Work Phone: Start: 10-19-2016 End: 11-08-2016 *Hepatic Function Panel *Hepatic Function Panel [facility] Work Phone: Start: 10-19-2016 End: 11-08-2016 Lipid panel [AGGREGATE] *Lipid Profile CC PCP [facility] Work Phone: Start: 03-29-2016 End: 03-29-2016 GERRY GARRETT [facility] Work Phone: Start: 03-29-2016 End: 03-29-2016 Echocardiography Echocardiogram (complete) [facility] Work Phone: Start: 03-29-2016 End: 03-29-2016 Follow Up Appt 6 months Follow Up Appt 6 months [facility] Work Phone: Start: 10-08-2015 End: 04-21-2016 Lipid panel [AGGREGATE] *Lipid Profile CC PCP [facility] Work Phone: Start: 03-31-2015 End: 04-08-2015 *Hepatic Function Panel *Hepatic Function Panel [facility] Work Phone: Start: 03-31-2015 End: 03-31-2015 GERRY GARRETT [facility] Work Phone: Start: 03-31-2015 End: 03-31-2015 Follow Up Appt 1 year Follow Up Appt 1 year [facility] Work Phone: Start: 03-31-2015 End: 04-08-2015 Lipid panel [AGGREGATE] *Lipid Profile CC PCP [facility] Work Phone: Start: 12-29-2014 End: 12-30-2014 Stress Echocardiogram (treadmill) Stress Echocardiogram (treadmill) [facility] Work Phone: Start: 03-31-2014 End: 04-02-2014 *Hepatic Function Panel *Hepatic Function Panel [facility] Work Phone: Start: 03-31-2014 End: 03-31-2014 GERRY GERRY [facility] Work Phone: Start: 03-31-2014 End: 03-31-2014 Follow Up Appt 1 year Follow Up Appt 1 year [facility] Work Phone: Start: 03-31-2014 End: 04-02-2014 Lipid panel [AGGREGATE] *Lipid Profile CC PCP [facility] Work Phone: Start: 03-31-2014 End: 03-31-2014 Stress Echocardiogram (treadmill) Stress Echocardiogram (treadmill) [facility] Work Phone: Start: 06-10-2013 End: 06-10-2013 GERRY GERRY [facility] Work Phone: Start: 06-10-2013 End: 06-10-2013 Follow Up Appt 1 year Follow Up Appt 1 year [facility] Work Phone: Start: 03-25-2013 End: 03-25-2013 GERRY GERRY [facility] Work Phone: Start: 03-25-2013 End: 03-25-2013 Follow Up Appt 1 year Follow Up Appt 1 year [facility] Work Phone: Start: 08-07-2005 Hepatitis B surface antibody level LDL Cholesterol [facility] Start: 1993 Screening for malign ant neoplasm of colon [facility] Start: 1966 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 kavin Disease Visit Annual PCP Team Chronic Disease Visit [facility] Start: 1966 BP Controlled (<130/80) BP Controlle d (<130/80) [facility] Start: 1966 Depression Screening Depression Scre ening [facility] Start: 1966 Hepatitis C screening Hepatitis C [facility] Patient Education [facility] Work Phone: Patient referral [facility] Work Phone: End: 02-15-2025 Screening colonoscopy COLONOSCOPY SCREENING Endoscopy Routine History of colonic polyps Screen for colon cancer 1 Occurrences starting 02/16/2024 until 02/15/2025 [facility] Work Phone: Comment on above: 1 Occurrences starti ng 02/16/2024 until 02/15/2025 SURGICAL PATHOLOGY [facility] Work Phone: Comment on above: Release Upon Orderin g for 1 Occurrences starting 02/19/2024, 1 completed Immunizations Immunization Date Immunization Notes Care Provider Fa cility 07-13-2020 Covid (Moderna) Dr. Selena Saul Work Phone: [facility] 06-15-2020 Kia (Moderna) Dr. Selena Saul Work Phone: [facility] 01-30-2014 influenza, seasonal, injectable Maddie Jakob ATHLETIC COACH.RELIGIOUS EDUCATOR Work Phone: [facility] Work Phone: 02-09-2013 influenza virus vaccine, unspecified formulation Maddie Jakob ATHLETIC COACH.RELIGIOUS EDUCATOR Work Phone: [facility] 06-11-2012 tetanus toxoid, reduced diphtheria toxoid, and acellular pertussis vaccine, adsorbed Maddie Jakob ATHLETIC COACH.RELIGIOUS EDUCATOR Work Phone: [facility] 06-11-2012 zoster vaccine, live Kimberl ey Jakob ATHLETIC COACH.RELIGIOUS EDUCATOR Work Phone: [facility] 02-05-2011 influenza virus vaccine, unspecified formulation Maddie Jakob ATHLETIC COACH.RELIGIOUS EDUCATOR Work Phone: [facility] 01-26-2010 influenza virus vaccine, unspecified formulation Maddie Jakob ATHLETIC COACH.RELIGIOUS EDUCATOR Work Phone: [facility] Work Phone: 01-21-2009 influenza virus vaccine, unspecified formulation Maddie Jakob ATHLETIC COACH.RELIGIOUS EDUCATOR Work Phone: [facility] Work Phone: 02-21-2008 influenza virus vaccine, unspecified formulation Maddie Jakob ATHLETIC COACH.RELIGIOUS EDUCATOR Work Phone: [facility] Work Phone: 02-20-2007 influenza virus vaccine, unspecified formulation Maddie Jakob HALL Work Phone: [facility] 07-21-2003 tetanus and diphther ia toxoids, adsorbed, preservative free, for adult use (2 Lf of tetanus toxoid and 2 Lf of diphtheria toxoid) Maddie Jakob HALL Work Phone: [facility] Payers Date Payer Category Payer Self-pay [id number] 2017 Private Health Insurance AETNA S UPPLEMENT AETNA MEDICARE SUPPLEMENT [id number] 2017-Present [phone] [address] [address] [place] [address] Indemnity [id number] 2017 Private Health Insurance [facility] [id number] 2014 Unknown [id number] 2013 Medicare MEDICARE MEDICAR E A AND B [id number] 2013-Present [phone] [address] [address] [place] [address] Medicare [id number] 2013 Medicare [id number] Unknown [id number] Unknown [id number] Unknown [id number] Unknown [id number] Unknown [id number] Unknown [id number] Unknown [id number] Unknown [id number] Unknown [id number] Unknown [id number] Unknown [id number] Social History Date Type Detail Facility Start: 02-08-2022 End: 08-17-2023 Tobacco smoking status MTIS Unknown if ever smoked [facility] Start: 1950 Sex Assigned At Male [facility] Start: 07-20-2017 End: 12-03-2024 Tobacco smoking status MTIS Never smoked tobacco [facility] Start: 07-20-2017 Tobacco use and exposure Smokeless tobacco non-user [facility] Start: 02-16-2024 End: 02-23-2024 Alcoholic beverage intake Current non-drinker of alcohol (finding) [facility] Start: 02-16-2024 End: 02-19-2024 History of Social function [facility] Start: 02-16-2024 End: 02-19-2024 Tobacco use panel [facility] National Score (1-10 0), lower number is lower risk 75 [facility] Start: 1950 Sex assigned at Not [facility] file [facility] Start: 07-03-2024 Sex Male (finding) [facility] Medical Equipment Procedure Code Equipment Code Equipment Origin al Text Equipment Identifier Dates GLENOSPHERE FDA Start: 12-23-2024 HUMERAL STEM FDA Start: 12-23-2024 HUMERAL SYSTEM FDA Start: 09-08-2025 LATERALIZED BASEPLATE FDA Sta rt: 12-23-2024 SCREW FDA Start: 12-23-2024 SHORT POST FDA Start: 12-23-2024 Goals Date Patient Goal Desired Activity /State Functional Status Date Assessment Result Facility 12-24-2024 Functional status Ambulates [facility] Work Phone: Mental Status Date Assessment Result Facility 12-24-2024 Cognitive function Level Of Cons ciousness Awake;Alert;Appropriate;Follow s Commands [facility] Work Phone: 12-24-2024 Cognitive function Voice/Name [facility] Work Phone: 08-17-2023 Cognitive function Voice/Name [facility] Work Phone: Clinical Notes 08-17-2006 to 12-24-2024 Note Date & Type Note Facility 12-24-2024 Discharge summary Note Date/Time December 24, 2024 11:59am [facility] Medical Records Department [address] [place] [address] Discharge Summary 12/24/24 1018 MR#: [id number] Acct: [id number] Name: MARIA E GUTHRIE Rep #:[id number] : 1950 74 From: Oneyda WAGGONER PCP: Dr. Matt Saul MD Status :ADM BAR Location: [place] [address] Providers Date of Admission: 12/23/24 Date of Discharge: 12/24/24 Primary Care Physician: Dr. Matt Saul MD Consultations 12/23/24 13:04 Consult: Hospitalist Routine Consulting Provider: Hansel Sultana Reason for Consult: post op total shoulder medical management EMERGENT Consult: No MD Notified: Yes Date Notified: 12/23/24 Time Notified: 14:54 Method of Notification: Text Reason For Visit: ERAS, RIGHT REVERSE TOTAL SHOULDER ARTHROPLASTY Diagnosis Discharge Diagnosis (1) Right rotator cuff tear arthropathy: Status: Acute Code(s): M75.101 - Unspecified rotator cuff tear or rupture of right shoulder, not specified as traumatic; M12.811 - Other specific arthropathies, not elsewhere classified, right shoulder Plan: 1. Will continue PT today. Sling at all times nonweightbearing to right upper extremity 2. plan for discharge this afternoon following PT 3. Patient will follow up for post op appointment on in 2 weeks as previously scheduled 4. Patient has outpatient PT appointment 2 weeks postoperatively as previously scheduled 5. WBC 10.6 acute reactive leukocytosis: secondary to pre operative decadron. noacute systemic signs of infection. will monitor, and likely self resolve. 6. H/H 13.5/39.7: post operavtive anemia secondary to acute blood loss intraoperatively. Patient is asymptomatic at this time. No intraoperative complications. will continue to monitor. no acute interventions. 7. DVT prophylaxis : Aspirin 81 mg twice daily x 2 weeks 8. Pain control: patient instructed to take tylenol 500mg 2 tablets TID. and oxycodone 1-2 tablets every 4-6 hours only as needed for pain control. 9. Patient also given a prescription of meloxicam, senna 10. ok to remove post op dressing. post op day 5 (2) Status post reverse total arthroplasty of right shoulder: Status: Acute Code(s): Z96.611 - Presence of right artificial shoulder joint Medications at Discharge Home Medications aspirin 81 mg tablet,delayed release 81 mg PO DAILY@0800 06/09/13 Held on 12/24/24. Instructions: Resume on 01/07/25. metoprolol tartrate 25 mg tablet 25 mg PO BID 05/10/17 metformin 500 mg tablet 500 mg PO BID 05/11/17 ezetimibe 10 mg tablet 10 mg PO DAILY #180 tabs 10/02/17 cholecalciferol (vitamin D3) 25 mcg (1,000 unit) tablet 4,000 unit PO DAILY 01/21/20 cyanocobalamin (vitamin B-12) 1,000 mcg capsule 500 mcg PO DAILY 01/21/20 alirocumab 75 mg/mL subcutaneous pen injector (Praluent Pen) 150 mg subcut Q2W 03/26/21 losartan 100 mg tablet 100 mg PO QHS 02/08/22 allopurinol 300 mg tablet 300 mg PO BID 04/04/24 acetaminophen 500 mg tablet 1,000 mg (2 x 500 mg) PO Q8 #180 tabs 12/24/24 aspirin 81 mg tablet,delayed release 81 mg PO BID 2 weeks #28 tabs 12/24/24 meloxicam 7.5 mg tablet 7.5 mg PO BID #60 tabs 12/24/24 oxycodone 5 mg tablet 5 - 10 mg (1 - 2 x 5 mg) PO .q4-6hrs prn PRN Pain Score 4-10 7 days #30 tabs 12/24/24 sennosides 8.6 mg-docusate sodium 50 mg tablet (Stimulant Laxative Plus) 2 tab PO BID #14 tabs 12/24/24 Hospital Course Operations - (Right reverse total shoulder arthroplasty) Summary of Care Provided Hospital Course: Patient is s/p right reverse total shoulder arthroplasty with Dr. Yi 12/23/2024. Patient resting comfortably in bed. Rates pain 2/10. States taking Tylenol and oxycodone as needed and ice help to relieve pain. Patient has been up with therapy. Sling at all times to right upper extremity nonweightbearing to right upper extremity.. Afebrile, no chest pain, shortness of breath, negative calf pain/ erythema, and no other signs of DVT. Physical Exam Narrative Patient resting comfortably in bed No signs of acute distress Satting well on room air Sling in place to right upper extremity Limb is warm to touch, Sensation intact throughout entire right upper extremity Radial pulses bounding Dressing [with small amount of sanguinous draining at the most superior aspect] Calf nontender to palpation, no erythema, no edema. Negative Homans Weight / BMI Weight Weight: 90 kg Body Mass Index (BMI) 26.9 ABG / Lab / Microbiology Data 12/24/24 04:05 12/24/24 04:05 Laboratory: Laboratory Results - last 24 hr 12/23/24 14:16: POC Glucose 166 H 12/23/24 21:53: POC Glucose 272 H 12/24/24 04:05: WBC 10.6, RBC 4.56 L, Hgb 13.5, Hct 39.7 L, MCV 87.1, MCH 29.6, MCHC 34.0, RDW Std Deviation 41.7, RDW Coeff of Destiny 13.4, Plt Count 174, MPV 11.7, Sodium 135, Potassium 4.4, Chloride 100, Carbon Dioxide 19.6 L, Anion Gap 15, BUN 20 H, Creatinine 1.01, Estim Creat Clear Calc 68.29, Est GFR (MDRD) Non-Af 77, BUN/Creatinine Ratio 19.8, Glucose 175 H, Calcium 9.2 12/24/24 06:07: POC Glucose 188 H 12/24/24 11:22: POC Glucose 306 H Radiography Diagnostic Testing: Radiology Impression Shoulder X-Ray 12/23/24 13:40 IMPRESSION: Right shoulder reverse arthroplasty. Reading Location: [place] [address] D/C Instructions Discharge Activity: May Shower Weight Bearing Status: No weight bearing (right upper extremity . sling at all times) Additional Activity Instructions: sling at all times Call your doctor if your incision/area has: Continuous Slow Oozing, Sudden Increased Bleeding, Increased Pain/ Swelling, Increased Redness, Foul Smelling Discharge and Swelling at the incision site Call your doctor if you observe: Fever of 101 or Higher, Inability to urinate, Inability to have a bowel movement, Shortness of breath, Dizziness, Chest pain, Calf discomfort and Uncontrolled pain Remove Dressing in: 1 week Cleanse incision/area with: Soap & Water and Keep Dressing Clean & Dry DC O2, CPAP, BIPAP Needs Home O2 Discharge instructions: No DC home with Oxygen: No When: [facility] 2 weeks as previously scheduled Meaningful Use Info Meaningful Use Meaningful Use Diagnoses (Choose all that apply): None applicable Discharge Plan Admission Admit Date/Time: 12/23/24 13:06 Attending Provider: Major Yi Primary Care Provider: Matt Saul Consulting Providers: Major Carrillo Discharge Orders/Prescriptions Prescriptions: New acetaminophen 500 mg Tablet 1,000 mg PO Q8 Qty: 180 0RF aspirin 81 mg Tablet,Delayed Release (Dr/Ec) 81 mg PO BID 14 Days Qty: 28 0RF meloxicam 7.5 mg Tablet 7.5 mg PO BID Qty: 60 0RF oxycodone 5 mg Tablet 5 - 10 mg PO .q4-6hrs prn PRN (Reason: Pain Score 4-10) 7 Days Qty: 30 0RF sennosides-docusate sodium [Stimulant Laxative Plus] 8.6-50 mg Tablet 2 tab PO BID Qty: 14 0RF Continued metformin 500 mg tablet 500 mg PO BID metoprolol tartrate 25 mg tablet 25 mg PO BID cholecalciferol (vitamin D3) 25 mcg (1,000 unit) tablet 4,000 unit PO DAILY cyanocobalamin (vitamin B-12) 1,000 mcg capsule 500 mcg PO DAILY losartan 100 mg tablet 100 mg PO QHS allopurinol 300 mg tablet 300 mg PO BID ezetimibe 10 mg tablet 10 mg PO DAILY Qty: 180 3RF Praluent Pen 75 mg/mL pen injector 150 mg subcut Q2W Rx Instructions: inject into abdomen, thigh, or upper arm (deltoid muscle); [facility] 81 MG tablet 81 mg PO DAILY@0800 Hold Instructions: Resume on 01/07/25. Referrals / Follow Up: Matt Saul MD [Primary Care Provider] - Disposition Disposition (needs filled in before D/C Order can be placed): Home, Self Care 12/24/24 1159 <Electronically signed by Oneyda WAGGONER> Cosigner Signature (if applicable): CC: Dr. Matt Saul MD; EDILSON Diaz~ Signed [facility] Work Phone: 1(667) 350-952609-09-2025 Discharge summary [facility] Medical Records Department [address] [place] [address] Discharge Summary 12/24/24 1018 MR#: [id number] Acct: [id number] Name: MARIA E GUTHRIE Rep #:[id number] : 1950 74 From: Oneyda WAGGONER PCP: Dr. Matt Saul MD Status :ADM BAR Location: [place] [address] Providers Date of Admission: 12/23/24 Date of Discharge: 12/24/24 Primary Care Physician: Dr. Matt Saul MD Consultations 12/23/24 13:04 Consult: Hospitalist Routine Consulting Provider: Hansel Sultana Reason for Consult: post op total shoulder medical management EMERGENT Consult: No MD Notified: Yes Date Notified: 12/23/24 Time Notified: 14:54 Method of Notification: Text Reason For Visit: ERAS, RIGHT REVERSE TOTAL SHOULDER ARTHROPLASTY Diagnosis Discharge Diagnosis (1) Right rotator cuff tear arthropathy: Status: Acute Code(s): M75.101 - Unspecified rotator cuff tear or rupture of right shoulder, not specified as traumatic; M12.811 - Other specific arthropathies, not elsewhere classified, right shoulder Plan: 1. Will continue PT today. Sling at all times nonweightbearing to right upper extremity 2. plan for discharge this afternoon following PT 3. Patient will follow up for post op appointment on in 2 weeks as previously scheduled 4. Patient has outpatient PT appointment 2 weeks postoperatively as previously scheduled 5. WBC 10.6 acute reactive leukocytosis: secondary to pre operative decadron. noacute systemic signs of infection. will monitor, and likely self resolve. 6. H/H 13.5/39.7: post operavtive anemia secondary to acute blood loss intraoperatively. Patient isasymptomatic at this time. No intraoperative complications. will continue to monitor. no acute interventions. 7. DVT prophylaxis : Aspirin 81 mg twice daily x 2 weeks 8. Pain control: patient instructed to take tylenol 500mg 2 tablets TID. and oxycodone 1-2 tablets every 4-6 hours only as needed for pain control. 9. Patient also given a prescription of meloxicam, senna 10. ok to remove post op dressing. post op day 5 (2) Status post reverse total arthroplasty of right shoulder: Status: Acute Code(s): Z96.611 - Presence of right artificial shoulder joint Medications at Discharge Home Medications aspirin 81 mg tablet,delayed release 81 mg PO DAILY@0800 06/09/13 Held on 12/24/24. Instructions: Resume on 01/07/25. metoprolol tartrate 25 mg tablet 25 mg PO BID 05/10/17 metformin 500 mg tablet 500 mg PO BID 05/11/17 ezetimibe 10 mg tablet 10 mg PO DAILY #180 tabs 10/02/17 cholecalciferol (vitamin D3) 25 mcg (1,000 unit) tablet 4,000 unit PO DAILY 01/21/20 cyanocobalamin (vitamin B-12) 1,000 mcg capsule 500 mcg PO DAILY 01/21/20 alirocumab 75 mg/mL subcutaneous pen injector (Praluent Pen) 150 mg subcut Q2W 03/26/21 losartan 100 mg tablet 100 mg PO QHS 02/08/22 allopurinol 300 mg tablet 300 mg PO BID 04/04/24 acetaminophen 500 mg tablet 1,000 mg (2 x 500 mg) PO Q8 #180 tabs 12/24/24 aspirin 81 mg tablet,delayed release 81 mg PO BID 2 weeks #28 tabs 12/24/24 meloxicam 7.5 mg tablet 7.5 mg PO BID #60 tabs 12/24/24 oxycodone 5 mg tablet 5 - 10 mg (1 - 2 x 5 mg) PO .q4-6hrs prn PRN Pain Score 4- 10 7 days #30 tabs 12/24/24 sennosides 8.6 mg-docusate sodium 50 mg tablet (Stimulant Laxative Plus) 2 tab PO BID #14 tabs 12/24/24 Hospital Course Operations - (Right reverse total shoulder arthroplasty) Summary of Care Provided Hospital Course: Patient is s/p right reverse total shoulder arthroplasty with Dr. Yi 12/23/2024. Patient restingcomfortably in bed. Rates pain 2/10. States taking Tylenol and oxycodone as needed and ice help to relieve pain. Patient has been up with therapy. Sling at all times to right upper extremity nonweightbearing to right upper extremity.. Afebrile, no chest pain, shortness of breath, negative calf pain/ erythema, and no other signs of DVT. Physical Exam Narrative Patient resting comfortably in bed No signs of acute distress Satting well on room air Sling in place to right upper extremity Limb is warm to touch, Sensation intact throughout entire right upper extremity Radial pulses bounding Dressing [with small amount of sanguinous draining at the most superior aspect] Calf nontender to palpation, no erythema, no edema. Negative Homans Weight / BMI Weight Weight: 90 kg Body Mass Index (BMI) 26.9 ABG / Lab / Microbiology Data 12/24/24 04:05 12/24/24 04:05 Laboratory: Laboratory Results - last 24 hr 12/23/24 14:16: POC Glucose 166 H 12/23/24 21:53: POC Glucose 272 H 12/24/24 04:05: WBC 10.6, RBC 4.56 L, Hgb 13.5, Hct 39.7 L, MCV 87.1, MCH 29.6, MCHC 34.0, RDW Std Deviation 41.7, RDW Coeff of Destiny 13.4, Plt Count 174, MPV 11.7, Sodium 135, Potassium 4.4, Chloride 100, Carbon Dioxide 19.6 L, Anion Gap 15, BUN 20 H, Creatinine 1.01, Estim Creat Clear Calc 68.29, Est GFR (MDRD) Non- Af 77, BUN/Creatinine Ratio 19.8, Glucose 175 H, Calcium 9.2 12/24/24 06:07: POC Glucose 188 H 12/24/24 11:22: POC Glucose 306 H Radiography Diagnostic Testing: Radiology Impression Shoulder X-Ray 12/23/24 13:40 IMPRESSION: Right shoulder reverse arthroplasty. Reading Location: [place] [address] D/C Instructions Discharge Activity: May Shower Weight Bearing Status: No weight bearing (right upper extremity . sling at all times) Additional Activity Instructions: sling at all times Call your doctor if your incision/area has: Continuous Slow Oozing, Sudden Increased Bleeding, Increased Pain/ Swelling, Increased Redness, Foul Smelling Discharge and Swelling at the incision site Call your doctor if you observe: Fever of 101 or Higher, Inability to urinate, Inability to have a bowel movement, Shortness of breath, Dizziness, Chest pain, Calf discomfort and Uncontrolled pain Remove Dressing in: 1 week Cleanse incision/area with: Soap & Water and Keep Dressing Clean & Dry DC O2, CPAP, BIPAP Needs Home O2 Discharge instructions: No DC home with Oxygen: No When: [facility] orthopaedics in 2 weeks as previously scheduled Meaningful Use Info Meaningful Use Meaningful Use Diagnoses (Choose all that apply): None applicable Discharge Plan Admission Admit Date/Time: 12/23/24 13:06 Attending Provider: Major Yi Primary Care Provider: Matt Saul Consulting Providers: Major Carrillo Discharge Orders/Prescriptions Prescriptions: New acetaminophen 500 mg Tablet 1,000 mg PO Q8 Qty: 180 0RF aspirin 81 mg Tablet,Delayed Release (Dr/Ec) 81 mg PO BID 14 Days Qty: 28 0RF meloxicam 7.5 mg Tablet 7.5 mg PO BID Qty: 60 0RF oxycodone 5 mg Tablet 5 - 10 mg PO .q4-6hrs prn PRN (Reason: Pain Score 4-10) 7 Days Qty: 30 0RF sennosides-docusate sodium [Stimulant Laxative Plus] 8.6-50 mg Tablet 2 tab PO BID Qty: 14 0RF Continued metformin 500 mg tablet 500 mg PO BID metoprolol tartrate 25 mg tablet 25 mg PO BID cholecalciferol (vitamin D3) 25 mcg (1,000 unit) tablet 4,000 unit PO DAILY cyanocobalamin (vitamin B-12) 1,000 mcg capsule 500 mcg PO DAILY losartan 100 mg tablet 100 mg PO QHS allopurinol 300 mg tablet 300 mg PO BID ezetimibe 10 mg tablet 10 mg PO DAILY Qty: 180 3RF Praluent Pen 75 mg/mL pen injector 150 mg subcut Q2W Rx Instructions: inject into abdomen, thigh, or upper arm (deltoid muscle); [facility] 81 MG tablet 81 mg PO DAILY@0800 Hold Instructions: Resume on 01/07/25. Referrals / Follow Up: Matt Saul MD [Primary Care Provider] - Disposition Disposition (needs filled in before D/C Order can be placed): Home, Self Care 12/24/24 1159 Cosigner Signature (if applicable): CC: Dr. Matt Saul MD; EDILSON Diaz~ Signed [facility]09-09-2025 Progress note Author Major Carrillo [facility] Note Date/Time December 24, 2024 9:42am [facility] Medical Records Department [address] [place] [address] Progress Note - Hospitalist 12/24/24913 MR#: [id number] Acct: [id number] Name: MARIA E GUTHRIE Rep #:[id number] : 1950 74 From: Major mathews MD PCP: Dr. Matt Saul MD Status :ADM BAR Location: [place] [id number] Subjective Subjective Doing well, pain is controlled Objective Data Objective Data Vital Signs: Vital Signs Temp Pulse Resp BP Pulse Ox O2 Del Method O2 Flow Rate 97.6 F L 58 L 18 128/71 H 95 Room Air 2 12/24/24 08:26 12/24/24 08:33 12/24/24 08:26 12/24/24 08:26 12/24/24 08:26 12/24/24 08:29 12/23/24 18:43 Oxygen Flow Rate (L/min) 2 Oxygen Delivery Method Room Air Weight: 198 lb 6.656 oz Body Mass Index (BMI) 26.9 Intake & Output: Intake and Output for Last 24 Hours 12/23/24 12/24/24 12/25/24 03:59 03:59 03:59 Intake Total 4204 / 4204 1550 / 1550 Output Total 150 / 150 Balance 4054 / 4054 1550 / 1550 Lab / Micro Data 12/24/24 04:05 12/24/24 04:05 Labs: Laboratory Results - last 24 hr 12/23/24 10:15: Magnesium 1.8 12/23/24 10:22: POC Glucose 195 H 12/23/24 14:16: POC Glucose 166 H 12/23/24 21:53: POC Glucose 272 H 12/24/24 04:05: WBC 10.6, RBC 4.56 L, Hgb 13.5, Hct 39.7 L, MCV 87.1, MCH 29.6, MCHC 34.0, RDW Std Deviation 41.7, RDW Coeff of Destiny 13.4, Plt Count 174, MPV 11.7, Sodium 135, Potassium 4.4, Chloride 100, Carbon Dioxide 19.6 L, Anion Gap 15, BUN 20 H, Creatinine 1.01, Estim Creat Clear Calc 68.29, Est GFR (MDRD) Non-Af 77, BUN/Creatinine Ratio 19.8, Glucose 175 H, Calcium 9.2 12/24/24 06:07: POC Glucose 188 H Radiography Diagnostic Testing: Radiology Impression Shoulder X-Ray 12/23/24 13:40 IMPRESSION: Right shoulder reverse arthroplasty. Reading Location: [place] [address] Physical Exam Narrative General: Alert, Oriented x3, Cooperative, No apparent distress HEENT: Atraumatic, PERRLA, EOMI, Normocephalic Oral: Moist Mucosa Neck: Supple, No JVD Lungs: Diminished, Normal air movement, No rhonchi, No wheeze, No rales Cardiovascular: Regular rate, Regular Rhythm, Normal S1, Normal S2, No murmurs Abdomen: Soft, Non Tender, Non-Distended, No Hepato-splenomegaly Extremities: No edema, Capillary Refill Less than 3 Seconds Skin: No rashes, No breakdown Musculoskeletal: Right shoulder dressing CDI Neurological: No focal neurological deficits, Motor Exam 5/5 strength throughout, Sensory exam intact to light touch and pain Psych/Mental Status: Normal Affect, Appropriate Assessment & Plan Assessment/Plan (1) Right rotator cuff tear arthropathy: PLAN: Plan 1. Right shoulder rotator cuff tear arthropathy s/p reverse total shoulder arthroplasty on 12/23/2024 ? Pain management per primary - PT/OT - Medically stable for discharge 2. History of CAD with stenting/essential HTN/HLD ? Normotensive postoperatively. Continue home Lopressor, losartan, Zetia and baby aspirin. - BP stable will monitor and make adjustments as necessary 3. Type 2 diabetes mellitus ? Will treat with sliding scale insulin with meals while inpatient. Hold home metformin. - will monitor and make adjustments as necessary 4. History of gout - Stable ? Continue home allopurinol. DVT: Per primary Will sign off, call with questions Charges/Coding Visit Charges Inpatient E&M: 96820 Subs Hosp L2 12/24/24 0942 <Electronically signed by Major Carrillo MD> Cosigner Signature (if applicable): CC: ~ Signed ADDENDUM by Dr. Major Carrillo MD on 12/24/24 at 0942 Visit Charges Office Visits / Consults: 25617 OV L3 Est 20min 12/24/24 0942<Electronically signed by Major Carrillo MD> Cosigner Signature (if applicable): cc: ~* Signed [facility] Work Phone: 1(758) 709-432909-09-2025 [facility] Medical Records Department [address] [place] [address] Discharge Summary 12/24/24 1018 MR#: [id number] Acct: [id number] Name: MARIA E GUTHRIE Rep #: [id number] : 1950 74 From: Oneyda WAGGONER PCP: Dr. Matt Saul MD Status:ADM BAR Location: [address] Providers Date of Admission: 12/23/24 Date of Discharge: 12/24/24 Primary Care Physician: Dr. Matt Saul MD Consultations 12/23/24 13:04 Consult: Hospitalist Routine Consulting Provider: Hansel Sultana Reason for Consult: post op total shoulder medical management EMERGENT Consult: No MD Notified: Yes Date Notified: 09/08/25 Time Notified: 14:54 Method of Notification: Text Reason For Visit: ERAS, RIGHT REVERSE TOTAL SHOULDER ARTHROPLASTY Diagnosis Discharge Diagnosis (1) Right rotator cuff tear arthropathy: Status: Acute Code(s): M75.101 - Unspecified rotator cuff tear or rupture of right shoulder, not specified as traumatic; M12.811 - Other specific arthropathies, not elsewhere classified, right shoulder Plan: 1. Will continue PT today. Sling at all times nonweightbearing to right upper extremity 2. plan for discharge this afternoon following PT 3. Patient will follow up for post op appointment on in 2 weeks as previously scheduled 4. Patient has outpatient PT appointment 2 weeks postoperatively as previously scheduled 5. WBC 10.6 acute reactive leukocytosis: secondary to pre operative decadron. no acute systemic signs of infection. will monitor, and likely self resolve. 6. H/H 13.5/39.7: post operavtive anemia secondary to acute blood loss intraoperatively. Patient is asymptomatic at this time. No intraoperative complications. will continue to monitor. no acute interventions. 7. DVT prophylaxis : Aspirin 81 mg twice daily x 2 weeks 8. Pain control: patient instructed to take tylenol 500mg 2 tablets TID. and oxycodone 1-2 tablets every 4-6 hours only as needed for pain control. 9. Patient also given a prescription of meloxicam, senna 10. ok to remove post op dressing. post op day 5 (2) Status post reverse total arthroplasty of right shoulder: Status: Acute Code(s): Z96.611 - Presence of right artificial shoulder joint Medications at Discharge Home Medications aspirin 81 mg tablet,delayed release 81 mg PO DAILY@0800 06/09/13 Held on 12/24/24. Instructions: Resume on 01/07/25. metoprolol tartrate 25 mg tablet 25 mg PO BID 05/10/17 metformin 500 mg tablet 500 mg PO BID 05/11/17 ezetimibe 10 mg tablet 10 mg PO DAILY #180 tabs 10/02/17 cholecalciferol (vitamin D3) 25 mcg (1,000 unit) tablet 4,000 unit PO DAILY 01/21/20 cyanocobalamin (vitamin B-12) 1,000 mcg capsule 500 mcg PO DAILY 01/21/20 alirocumab 75 mg/mL subcutaneous pen injector (Praluent Pen) 150 mg subcut Q2W 03/26/21 losartan 100 mg tablet 100 mg PO QHS 02/08/22 allopurinol 300 mg tablet 300 mg PO BID 04/04/24 acetaminophen 500 mg tablet 1,000 mg (2 x 500 mg) PO Q8 #180 tabs 12/24/24 aspirin 81 mg tablet,delayed release 81 mg PO BID 2 weeks #28 tabs 12/24/24 meloxicam 7.5 mg tablet 7.5 mg PO BID #60 tabs 12/24/24 oxycodone 5 mg tablet 5 - 10 mg (1 - 2 x 5 mg) PO .q4-6hrs prn PRN Pain Score 4- 10 7 days #30 tabs 12/24/24 sennosides 8.6 mg-docusate sodium 50 mg tablet (Stimulant Laxative Plus) 2 tab PO BID #14 tabs 12/24/24 Hospital Course Operations - (Right reverse total shoulder arthroplasty) Summary of Care Provided Hospital Course: Patient is s/p right reverse total shoulder arthroplasty with Dr. Yi 12/23/2024. Patient resting comfortably in bed. Rates pain 2/10. States taking Tylenol and oxycodone as needed and ice help to relieve pain. Patient has been up with therapy. Sling at all times to right upper extremity nonweightbearing to right upper extremity.. Afebrile, no chest pain, shortness of breath, negative calf pain/ erythema, and no other signs of DVT. Physical Exam Narrative Patient resting comfortably in bed No signs of acute distress Satting well on room air Sling in place to right upper extremity Limb is warm to touch, Sensation intact throughout entire right upper extremity Radial pulses bounding Dressing [with small amount of sanguinous draining at the most superior aspect] Calf nontender to palpation, no erythema, no edema. Negative Homans Weight / BMI Weight Weight: 90 kg Body Mass Index (BMI) 26.9 ABG / Lab / Microbiology Data 12/24/24 04:05 12/24/24 04:05 Laboratory: Laboratory Results - last 24 hr 12/23/24 14:16: POC Glucose 166 H 12/23/24 21:53: POC Glucose 272 H 12/24/24 04:05: WBC 10.6, RBC 4.56 L, Hgb 13.5, Hct 39.7 L, MCV 87.1, MCH 29.6, MCHC 34.0, RDW Std Deviation 41.7, RDW Coeff of Destiny 13.4, Plt Count 174, MPV 11.7, Sodium 135, Potassium 4.4, Chloride 100, Carbon Dioxide 19.6 L, Anion Gap 15, BUN 20 H, Creatinine 1.01 (more content not included)...[facility]09-09-2025 Progress note [facility] Medical Records Department [address] [place] [address] Progress Note - Hospitalist 12/24/24913 MR#: [id number] Acct: [id number] Name: MARIA E GUTHRIE Rep #:[id number] : 1950 74 From: Major mathews MD PCP: Dr. Matt Saul MD Status :ADM BAR Location: [place] [address] Subjective Subjective Doing well, pain is controlled Objective Data Objective Data Vital Signs: Vital Signs Temp Pulse Resp BP Pulse Ox O2 Del Method O2 Flow Rate 97.6 F L 58 L 18 128/71 H 95 Room Air 2 12/24/24 08:26 12/24/24 08:33 12/24/24 08:26 12/24/24 08:26 12/24/24 08:26 12/24/24 08:29 12/23/24 18:43 Oxygen Flow Rate (L/min) 2 Oxygen Delivery Method Room Air Weight: 198 lb 6.656 oz Body Mass Index (BMI) 26.9 Intake & Output: Intake and Output for Last 24 Hours 12/23/24 12/24/24 12/25/24 03:59 03:59 03:59 Intake Total 4204 / 4204 1550 / 1550 Output Total 150 / 150 Balance 4054 / 4054 1550 / 1550 Lab / Micro Data 12/24/24 04:05 12/24/24 04:05 Labs: Laboratory Results - last 24 hr 12/23/24 10:15: Magnesium 1.8 12/23/24 10:22: POC Glucose 195 H 12/23/24 14:16: POC Glucose 166 H 12/23/24 21:53: POC Glucose 272 H 12/24/24 04:05: WBC 10.6, RBC 4.56 L, Hgb 13.5, Hct 39.7 L, MCV 87.1, MCH 29.6, MCHC 34.0, RDW Std Deviation 41.7, RDW Coeff of Destiny 13.4, Plt Count 174, MPV 11.7, Sodium 135, Potassium 4.4, Chloride 100, Carbon Dioxide 19.6 L, Anion Gap 15, BUN 20 H, Creatinine 1.01, Estim Creat Clear Calc 68.29, Est GFR (MDRD) Non- Af 77, BUN/Creatinine Ratio 19.8, Glucose 175 H, Calcium 9.2 12/24/24 06:07: POC Glucose 188 H Radiography Diagnostic Testing: Radiology Impression Shoulder X-Ray 12/23/24 13:40 IMPRESSION: Right shoulder reverse arthroplasty. Reading Location: [place] [address] Physical Exam Narrative General: Alert, Oriented x3, Cooperative, No apparent distress HEENT: Atraumatic, PERRLA, EOMI, Normocephalic Oral: Moist Mucosa Neck: Supple, No JVD Lungs: Diminished, Normal air movement, No rhonchi, No wheeze, No rales Cardiovascular: Regular rate, Regular Rhythm, Normal S1, Normal S2, No murmurs Abdomen: Soft, Non Tender, Non-Distended, No Hepato-splenomegaly Extremities: No edema, Capillary Refill Less than 3 Seconds Skin: No rashes, No breakdown Musculoskeletal: Right shoulder dressing CDI Neurological: No focal neurological deficits, Motor Exam 5/5 strength throughout, Sensory exam intact to light touch and pain Psych/Mental Status: Normal Affect, Appropriate Assessment & Plan Assessment/Plan (1) Right rotator cuff tear arthropathy: PLAN: Plan 1. Right shoulder rotator cuff tear arthropathy s/p reverse total shoulder arthroplasty on 12/23/2024 ? Pain management per primary - PT/OT - Medically stable for discharge 2. History of CAD with stenting/essential HTN/HLD ? Normotensive postoperatively. Continue home Lopressor, losartan, Zetia and baby aspirin. - BP stable will monitor and make adjustments as necessary 3. Type 2 diabetes mellitus ? Will treat with sliding scale insulin with meals while inpatient. Hold home metformin. - will monitor and make adjustments as necessary 4. History of gout - Stable ? Continue home allopurinol. DVT: Per primary Will sign off, call with questions Charges/Coding Visit Charges Inpatient E&M: 59748 Subs Hosp L2 12/24/24 0942 Cosigner Signature (if applicable): CC: ~ Signed ADDENDUM by Dr. Major Carrillo MD on 12/24/24 at 0942 Visit Charges Office Visits / Consults: 09540 OV L3 Est 20min 12/24/24 0942 Cosigner Signature (if applicable): cc: ~* Signed [facility]09-08-2025 Consult note Author Hansel Sultana [facility] Note Date/Time December 23, 2024 8:16pm [facility] Medical Records Department [address] [place] [address] Consultation - Hospitalist 12/23/24 1608 MR#: [id number] Acct: [id number] Name: MARIA E GUTHRIE Rep #:[id number] : 1950 74 From: Hansel foreman DO PCP: Dr. Matt Saul MD Status :ADM BAR Location: [place] [address] Assessment & Plan Assessment/Plan (1) Right rotator cuff tear arthropathy: PLAN: Plan Patient is a 74-year-old male who presented to [facility] on 12/23/2024 for planned right shoulder procedure. Medicine consulted postoperatively for medical management. 1. Right shoulder rotator cuff tear arthropathy ? Orthopedic surgery primary. S/p right reverse total shoulder arthroplasty with Dr. Yi on 12/23. Tolerated procedure well. Postoperative pain control,DVT prophylaxis and further management per orthopedics. PT/OT/case management consulted. Follow- up a.m. labs. 2. History of CAD with stenting, hypertension, hyperlipidemia ? Normotensive postoperatively. Continue home Lopressor, losartan, Zetia and baby aspirin. 3. Type 2 diabetes mellitus ? Will treat with sliding scale insulin with meals while inpatient. Hold home metformin. 4. History of gout ? Continue home allopurinol. Total clinical time spent by myself addressing the patient's medical issues, reviewing all the data, and collaborating with patient's care team: 38 minutes. HPI Consult Data Date of Consult: 12/23/24 HPI Narrative Reason for Consultation: Postoperative medical management HPI Narrative: MARIA E GUTHRIE, is a 74 M who presented to [facility] on 12/23/2024 for planned orthopedic procedure. Medicine consulted postoperatively for medical management. Patient had right reverse total shoulder arthroplasty done with Dr. Yi today. Tolerated procedure well. I saw the patient at beds[facility]ater this afternoon. Patient was sitting up comfortably in bed, conversing normally, in no acute distress. Noted that he did still have some numbness and tingling in his fingers but denied any pain or discomfort in the shoulder. No other acute concerns at this time. [facility] Medical History Wears hearing aid Wears glasses Wears partial dentures History of steroid therapy Arthritis Dietary restriction Non-smoker History of echocardiogram History of stress test Cardiology follow-up encounter Diabetes Myocardial infarct Hypertension Osteoarthritis Gout Atherosclerosis of coronary artery of [place] heart without angina pectoris Hyperlipidemia Home Medications ?Medication ?Instructions ?Recorded ?Last Taken ?Type aspirin 81 mg tablet,delayed 81 mg PO DAILY@0800 06/0912/17/24 History release metoprolol tartrate 25 mg tablet 25 mg PO BID 05/10/17 12/23/24 06:26 History metformin 500 mg tablet 500 mg PO BID 05/11/1712/22 History ezetimibe 10 mg tablet 10 mg PO DAILY #180 tabs 12/22/24 Rx cholecalciferol (vitamin D3) 25 4,000 unit PO DAILY 12/17/24 History mcg (1,000 unit) tablet cyanocobalamin (vitamin B-12) 500 mcg PO DAILY 0 12/17/24 History 1,000 mcg capsule alirocumab 75 mg/mL subcutaneous 150 mg subcut Q2W 02/0412/15/24 History pen injector (Praluent Pen) losartan 100 mg tablet 100 mg PO QHS 02/08/2212/22 History allopurinol 300 mg tablet 300 mg PO BID 04/04/2412/22 History Allergy/AdvReac Type Severity Reaction Status Date / Time [id number] Reductase AdvReac Mild myalgias Verified 12/23/24 10:26 Inhibitor (Hdlzaxq-Wgi-Evy Reductase Inhibitor) Family History Brother CAD (coronary artery disease) Hx of CABG Surgical History Hx of colonoscopy Hx of total knee arthroplasty History of coronary artery stent placement History of left knee replacement (03/20/19) History of right knee surgery History of left knee surgery History of repair of rotator cuff Social History Smoking Status: Never smoker alcohol intake: never substance use type: does not use caffeine: Yes Type: carbonated beverages Number of servings: 1 ROS Constitutional Constitutional: Denies chills, fatigue, fever(s) or weakness Cardiovascular Cardiovascular: Denies chest pain Respiratory/Chest Respiratory/Chest: Denies shortness of breath at rest Gastrointestinal Gastrointestinal: Denies abdominal pain Musculoskeletal Musculoskeletal: Denies arthralgias, joint pain or myalgias Neurologic Neurologic: Denies focal weakness Physical Exam Const alert, oriented x3, no apparent distress, average body habitus, healthy appearing and well nourished Constitutional Narrative: Pleasant elderly male, sitting back comfortably in bed, conversing normally, in no acute distress. General Appearance: cooperative, comfortable, well kempt and well developed HEENT normocephalic, head/scalp atraumatic, hearing grossly normal bilaterally, nasal mucous membranes and turbinates normal and moist oral mucous membranes Eyes PERRL, EOMs intact bilaterally and conjunctivae normal Neck full ROM Chest inspection of chest normal Resp normal respiratory effort, normal air movement, no use of accessory muscles and clear to auscultation bilaterally Cardio regular rate, regular rhythm, no murmurs and peripheral pulses 2+ throughout GI normal to inspection, nondistended, normoactive bowel sounds, soft to palpation,non-tender and non-distended Back/Spine normal ROM Extremity Extremity Narrative: Right arm with sling in place. Skin no rashes or lesions noted Psych mental status grossly normal Lab / Micro Data Labs: Laboratory Results - last 24 hr 12/23/24 10:15: Magnesium 1.8 12/23/24 10:22: POC Glucose 195 H 12/23/24 14:16: POC Glucose 166 H Imaging Radiology Impression Shoulder X-Ray 12/23/24 13:40 IMPRESSION: Right shoulder reverse arthroplasty. Reading Location: [place] [address] Charges/Coding Visit Charges Inpatient E&M: 25874 Subs Hosp L2 12/23/242015 <Electronically signed by Hansel Sultana DO> Cosigner Signature (if applicable): CC: Dr. Matt Saul MD; Dr. Major Yi DO~ Signed [facility] Work Phone: 1(848) 495-693009-08-2025 Consult note [facility] Medical Records Department [address] [place] [address] Consultation - Hospitalist 12/23/24 1608 MR#: [id number] Acct: [id number] Name: MARIA E GUTHRIE Rep #:[id number] : 1950 74 From: Hansel foreman DO PCP: Dr. Matt Saul MD Status :ADM BAR Location: [place] [address] Assessment & Plan Assessment/Plan (1) Right rotator cuff tear arthropathy: PLAN: Plan Patient is a 74-year-old male who presented to [facility] on 12/23/2024 for planned right shoulder procedure. Medicine consulted postoperatively for medical management. 1. Right shoulder rotator cuff tear arthropathy ? Orthopedic surgery primary. S/p right reverse total shoulder arthroplasty with Dr. Yi on 12/23. Tolerated procedure well. Postoperative pain control,DVT prophylaxis and further management per orthopedics. PT/OT/case management consulted. Follow-up a.m. labs. 2. History of CAD with stenting, hypertension, hyperlipidemia ? Normotensive postoperatively. Continue home Lopressor, losartan, Zetia and baby aspirin. 3. Type 2 diabetes mellitus ? Will treat with sliding scale insulin with meals while inpatient. Hold home metformin. 4. History of gout ? Continue home allopurinol. Total clinical time spent by myself addressing the patient's medical issues, reviewing all the data, and collaborating with patient's care team: 38 minutes. HPI Consult Data Date of Consult: 12/23/24 HPI Narrative Reason for Consultation: Postoperative medical management HPI Narrative: MARIA E GUTHRIE, is a 74 M who presented to [facility] on 12/23/2024 for planned orthopedic procedure. Medicine consulted postoperatively for medical management. Patient had right reverse total shoulder arthroplasty done with Dr. Yi today. Tolerated procedure well. I saw the patient at bedsidelater this afternoon. Patient was sitting up comfortably in bed, conversing normally, in no acute distress. Noted that he did still have some numbness and tingling in his fingers but denied any pain or discomfort in the shoulder. No other acute concerns at this time. [facility] Medical History Wears hearing aid Wears glasses Wears partial dentures History of steroid therapy Arthritis Dietary restriction Non-smoker History of echocardiogram History of stress test Cardiology follow-up encounter Diabetes Myocardial infarct Hypertension Osteoarthritis Gout Atherosclerosis of coronary artery of [place] heart without angina pectoris Hyperlipidemia Home Medications ?Medication ?Instructions ?Recorded ?Last Taken ?Type aspirin 81 mg tablet,delayed 81 mg PO DAILY@0800 06/0912/17/24 History release metoprolol tartrate 25 mg tablet 25 mg PO BID 05/10/17 12/23/24 06:26 History metformin 500 mg tablet 500 mg PO BID 05/11/1712/22 History ezetimibe 10 mg tablet 10 mg PO DAILY #180 tabs 12/22/24 Rx cholecalciferol (vitamin D3) 25 4,000 unit PO DAILY 12/17/24 History mcg (1,000 unit) tablet cyanocobalamin (vitamin B-12) 500 mcg PO DAILY 0 12/17/24 History 1,000 mcg capsule alirocumab 75 mg/mL subcutaneous 150 mg subcut Q2W 02/0412/15/24 History pen injector (Praluent Pen) losartan 100 mg tablet 100 mg PO QHS 02/08/2212/22 History allopurinol 300 mg tablet 300 mg PO BID 04/04/2412/22 History Allergy/AdvReac Type Severity Reaction Status Date / Time Wffgaij-RTQ-OqU Reductase AdvReac Mild myalgias Verified 12/23/24 10:26 Inhibitor (Mxmstqm-Nxl-Imk Reductase Inhibitor) Family History Brother CAD (coronary artery disease) Hx of CABG Surgical History Hx of colonoscopy Hx of total knee arthroplasty History of coronary artery stent placement History of left knee replacement (03/20/19) History of right knee surgery History of left knee surgery History of repair of rotator cuff Social History Smoking Status: Never smoker alcohol intake: never substance use type: does not use caffeine: Yes Type: carbonated beverages Number of servings: 1 ROS Constitutional Constitutional: Denies chills, fatigue, fever(s) or weakness Cardiovascular Cardiovascular: Denies chest pain Respiratory/Chest Respiratory/Chest: Denies shortness of breath at rest Gastrointestinal Gastrointestinal: Denies abdominal pain Musculoskeletal Musculoskeletal: Denies arthralgias, joint pain or myalgias Neurologic Neurologic: Denies focal weakness Physical Exam Const alert, oriented x3, no apparent distress, average body habitus, healthy appearing and well nourished Constitutional Narrative: Pleasant elderly male, sitting back comfortably in bed, conversing normally, in no acute distress. General Appearance: cooperative, comfortable, well kempt and well developed HEENT normocephalic, head/scalp atraumatic, hearing grossly normal bilaterally, nasal mucous membranes and turbinates normal and moist oral mucous membranes Eyes PERRL, EOMs intact bilaterally and conjunctivae normal Neck full ROM Chest inspection of chest normal Resp normal respiratory effort, normal air movement, no use of accessory muscles and clear to auscultation bilaterally Cardio regular rate, regular rhythm, no murmurs and peripheral pulses 2+ throughout GI normal to inspection, nondistended, normoactive bowel sounds, soft to palpation,non-tender and non-distended Back/Spine normal ROM Extremity Extremity Narrative: Right arm with sling in place. Skin no rashes or lesions noted Psych mental status grossly normal Lab / Micro Data Labs: Laboratory Results - last 24 hr 12/23/24 10:15: Magnesium 1.8 12/23/24 10:22: POC Glucose 195 H 12/23/24 14:16: POC Glucose 166 H Imaging Radiology Impression Shoulder X-Ray 12/23/24 13:40 IMPRESSION: Right shoulder reverse arthroplasty. Reading Location: [place] [address] Charges/Coding Visit Charges Inpatient E&M: 66946 Subs Hosp L2 12/23/242015 Cosigner Signature (if applicable): CC: Dr. Matt Saul MD; Dr. Major Yi, DO~ Signed [facility]09-08-2025 Consult note Author Osei Lubin [facility] Note Date/Time December 23, 2024 2:33pm [facility] Medical Records Department [address] [place] [address] Anesthesia Postop Eval II 12/23/24 1433 MR#: [id number] Acct: [id number] Name: MARIA E GUTHRIE Rep #:[id number] : 1950 74 From: Osei Choudhury PCP: Dr. Matt Saul MD Status :ADM BAR Y Race: C Location: [place] [address] Anesthesia Postop Eval I Sum Postop Eval Completion status Anesthesia document: Postop Eval 1 completed: Yes Anesthesia Postop Eval I Summary Anesthesia Postop Eval I Summary: Anesthesia Postop Eval I: Assessment Summary Airway patent Yes 12/23/24 13:32 GENERAL SALES MANAGER.CSIR Spontaneous unlabored Yes 12/23/24 13:32 GENERAL SALES MANAGER.CSIR respirations Mental status nausea No 12/23/24 13:32 GENERAL SALES MANAGER.CSIR Vomiting No 12/23/24 13:32 GENERAL SALES MANAGER.CSIR Anesthesia Postop Eval I: Fluid Summary Crystalloid volume administer 1,300 12/23/24 13:32 GENERAL SALES MANAGER.CSIR (ml) Colloids volume administered ( ml) Blood Product volume administered (ml) Total IV fluid infused 1,300 12/23/24 13:32 GENERAL SALES MANAGER.CSIR Anesthesia Postop Eval I: Summary Notes Anesthesia Complication No 12/23/24 13:32 GENERAL SALES MANAGER.CSIR Anesthesia Complication Comment: Post-operative progress note Anesthesia: Postop Eval II Evaluation Mental status: Awake and Calm Pain Level: 1 nausea: No Vomiting: No Complications Anesthesia Complication: No 12/23/24 1433 <Electronically signed by Osei Lubin MD> Date _ Osei Lubin MD Cosigner Signature: Date CC: ~ Signed [facility] Work Phone: 1(484) 149-769609-08-2025 Consult note Author Priscilla Willard [facility] Note Date/Time December 23, 2024 1:33pm [facility] Medical Records Department [address] [place] [address] Anesthesia Postop Eval I 12/23/24 1332 MR#: [id number] Acct: [id number] Name: MARIA E GUTHRIE Rep #:[id number] : 1950 74 From: Priscilla Willard CRNA PCP: Dr. Matt Saul MD Status :REG SDC Y Race: C Location: [place] [address] Anesthesia: Postop Eval I Current Vital Signs Temperature: 97 F Pulse Rate: 89 Blood Pressure: 145/87 Respiratory Rate: 18 Pulse Ox: 93 Assessment Airway patent: Yes Spontaneous unlabored respirations: Yes nausea: No Vomiting: No Anesthesia Complication: No Fluid Hydration Crystalloid volume administer (ml): 1,300 Total IV fluid infused: 1,300 Progress Note Anesthesia document: Postop Eval 1 completed: Yes 12/23/24 133 <Electronically signed by Priscilla cruz CRNA> Date _ Priscilla Willard GENERAL SALES MANAGER Cosigner Signature: Date CC: ~ Signed [facility] Work Phone: 1(756) 948-523009-08-2025 Evaluation note* Diagnosis Onset Date Resolution Status Admit Date Right rotator cuff tear arthropathy acute December 23 1:06pm Status post reverse total arthroplasty of right shoulder acute S epte2024 1:06pm [facility] Work Phone: [phone]) 739-143609-08-2025 Evaluation note* Diagnosis Onset Date Resolution Status Admit Date Right rotator cuff tear arthropathy inactive Maureen 8th, 2 025 1:06pm Status post reverse total arthroplasty of right shoulder inactive December 23 1:06pm [facility] Work Phone: [phone]) 400-388409-08-2025 Consult note [facility] Medical Records Department [address] [place] [address] Anesthesia Postop Eval II 12/23/24 1433 MR#: [id number] Acct: [id number] Name: MARIA E GUTHRIE Rep #:[id number] : 1950 74 From: Osei Choudhury PCP: Dr. Matt Saul MD Status :ADM BAR Y Race: C Location: [address] Anesthesia Postop Eval I Sum Postop Eval Completion status Anesthesia document: Postop Eval 1 completed: Yes Anesthesia Postop Eval I Summary Anesthesia Postop Eval I Summary: Anesthesia Postop Eval I: Assessment Summary Airway patent Yes 12/23/24 13:32 GENERAL SALES MANAGER.CSIR Spontaneous unlabored Yes 12/23/24 13:32 GENERAL SALES MANAGER.CSIR respirations Mental status nausea No 12/23/24 13:32 GENERAL SALES MANAGER.CSIR Vomiting No 12/23/24 13:32 GENERAL SALES MANAGER.CSIR Anesthesia Postop Eval I: Fluid Summary Crystalloid volume administer 1,300 12/23/24 13:32 GENERAL SALES MANAGER.CSIR (ml) Colloids volume administered ( ml) Blood Product volume administered (ml) Total IV fluid infused 1,300 12/23/24 13:32 GENERAL SALES MANAGER.CSIR Anesthesia Postop Eval I: Summary Notes Anesthesia Complication No 12/23/24 13:32 GENERAL SALES MANAGER.CSIR Anesthesia Complication Comment: Post-operative progress note Anesthesia: Postop Eval II Evaluation Mental status: Awake and Calm Pain Level: 1 nausea: No Vomiting: No Complications Anesthesia Complication: No 12/23/24 1433 MD> Date _ Osei Lubin MD Cosigner Signature: Date CC: ~ Signed [facility]09-08-2025 Radiology Diagnostic study note [facility] Imaging Services [address] [place] [address] Shoulder min 2 Views MR#: [id number] Acct: [id number] Name: MARIA E GUTHRIE Rep #: [id number] : 1950 M 74 From: Zhou Suárez MD PCP: Dr. Matt Saul MD Status: REG [facility] Study:Shoulder min 2 Views Date of Exam: 12/23/24 Exam# [id number] Ordering Dr: Major Yi DO PROCEDURE: SHOULDER MIN 2 VIEWS 12/23/2024 REASON FOR EXAM: POST OP TECHNIQUE: Procedure Code: RADSH Modality: DX Procedure: SHOULDER MIN 2 VIEWS Laterality: Right COMPARISON: Previous September 2020. FINDINGS: Bones: Right shoulder reverse arthroplasty. Orthopedic hardware intact. Mild degenerative changes in the right AC joint. Negative for fractures. Scapula otherwise negative. Proximal humerusotherwise negative. Clavicle negative. Joints: Right shoulder reverse arthroplasty intact. Soft tissues: Surgical changes. Otherwise adjacent structures negative. Other: Remainder of the exam negative. RAD/Shoulder min 2 Views IMPRESSION: Right shoulder reverse arthroplasty. Reading Location: [place] [address] CC: Dr. Matt Saul MD; Dr. Major Yi DO ~ Embedded Hardware Engineer: Signed [facility]09-08-2025 Consult note [facility] Medical Records Department [address] [place] [address] Anesthesia Postop Eval I 12/23/24 1332 MR#: [id number] Acct: [id number] Name: MARIA E GUTHRIE Rep #:[id number] : 1950 74 From: Priscilla Willard CRNA PCP: Dr. Matt Saul MD Status :[facility] Y Race: C Location: [place] [address] Anesthesia: Postop Eval I Current Vital Signs Temperature: 97 F Pulse Rate: 89 Blood Pressure: 145/87 Respiratory Rate: 18 Pulse Ox: 93 Assessment Airway patent: Yes Spontaneous unlabored respirations: Yes nausea: No Vomiting: No Anesthesia Complication: No Fluid Hydration Crystalloid volume administer (ml): 1,300 Total IV fluid infused: 1,300 Progress Note Anesthesia document: Postop Eval 1 completed: Yes 12/23/24 1333 a GENERAL SALES MANAGER> Date _ Priscilla Willard GENERAL SALES MANAGER Cosigner Signature: Date CC: ~ Signed [facility]09-08-2025 Procedure note [facility] Medical Records Department [address] [facility] [place] [address] Operative Report 12/23/24 1322 MR#: [id number] Acct: [id number] Name: MARIA E GUTHRIE Rep #:[id number] : 1950 74 From: Major lake DO PCP: Dr. Matt Saul MD Status :[facility] Location: [place] [address] Operative Report (Standard) Operative Information Date of Procedure: 12/23/24 Pre-Operative Diagnosis: Right shoulder rotator cuff tear arthropathy Post-Operative Diagnosis: Right shoulder rotator cuff tear arthropathy Surgery/Procedure Performed: Right reverse total shoulder arthroplasty underwater hunter trapper: Yes Boiler Attendant: Oneyda Solano Tasks completed by presser first: Opening & closing, Implanting device, Hemostasis: Electrocautery and Retracting Type of Anesthesia: General/Regional RN Documented Start/Stop Times: Operation Date: 12/23/24 12:00 Case Time Into Pre-Op 12/23/24 09:48 Out of Pre-Op 12/23/24 11:00 Anesthesia Start 12/23/24 11:22 Into Room 12/23/24 11:22 Procedure Start 12/23/24 11:49 Procedure End 12/23/24 13:16 Procedure Start Time: 11:49 Procedure Stop Time: 13:16 Select all DRAINS/GRAFTS/IMPLANTS that apply: Implanted device Implanted device details: Inocencio Avery PerFORM+ reversed baseplate 29 mm diameter +6 mm lateralization, standard glenosphere cobalt chrome 42 mm diameter, Tornier perform inlay stem size #3, + 6 mm retentive size number 3 42 mm diameter polyethylene insert, short central post and peripheral screws x4. Estimated Blood Loss: 150 cc Specimen collected: No Description of surgery: Patient arrived to [facility] morning of the procedure and was greeted by the same day surgery staff. Prior to his procedure, I greeted the patient in the preoperative holding area I identified the patient by name, record number, and date of . Informed consent was confirmed. The operative extremity was marked. All questions were answered to patient satisfaction. An interscalene block was administered prior to procedure by anesthesia staff for postoperative and intraoperative analgesia. At time of his procedure, patient was brought to the operative suite and positioned supine on a standard table with a beachchair attachment. General anesthesia was induced after all bony prominences were well-padded. Endotracheal tube was placed. After adequate anesthesia and securing the tube, we prepared the patient to be positioned in the beachchair position. A well-padded buyer tobacco head was applied. The nonoperative extremity was placed in a wellarm raza. He was then brought into the beachchair position after we confirmedan appropriate blood pressure. We then spun the bed 45 degrees. The operative extremity was then prepared. In the butterfly wing of the bed was removed and awell-padded torso strap was applied to secure the patient to the bed. The operative extremity was now free. We then prepped and draped the right upper extremity in normal, sterile orthopedic fashion. We then performed a timeout with all parties in attendance in agreement with theside, site, and operation be performed. 2 g Ancef was administered prior to incision by anesthesia staff, as well as 1 g TXA IV. No concerns were voiced and we elected to proceed. I first marked a standard deltopectoral incision just lateral to the coracoid process in line with the long axis of the humerus. Skin was sharply incised with 10 blade scalpel. I then dissected bluntly through the subcutaneous layersand found the fat stripe between the deltoid and pectoralis major.The cephalicvein was then identified and protected. It was retracted laterally with the deltoid. I then bluntly dissected underneath the deltoid with a Lamb elevator. Lenny retractor was placed. Theupper 1 cm of the pectoralis major was released. The long head biceps tendon was not identified andappeared to be chronically ruptured and retracted. I then identified the lesser and greater tuberosities. The supraspinatus was completely torn and retracted with an exposed greater tuberosity. Priorrotator cuff repair sutures were identified and removed. I then performed a subscapularis peel while rotating the humerus externally. I tagged the subscapularis for possible repair later with a taggingsuture. Humeral head was then dislocated anteriorly. Appropriate access to the humeral head was confirmed. I then subluxed the humeral head posteriorly with a Fukuda retractor placed around the posterior lipof the glenoid. Inferior capsule was tension. I was able to palpate the axillary nerve. Inferior capsule was then released to the 4 o'clock position of the glenoid face. 3 sided subscapularis releasewas performed with Bovie cautery. I then remove the Fukuda retractor and redislocated the shoulder anteriorly. I then made a anatomic neck cut of the cartilaginous surface of the humeral head. A metallic sutureanchor was identified and also removed. Sizing plate for a size # 3 stem was utilized to determine appropriate reaming size. A central pin was placed engaging the lateral cortex of the humerus. A size # 3 reamer was used to ream the humeral metaphysis and prepare for the inlay stem. A canal findingreamer was utilized prior to sequential broaching to a size # 3 short stem with excellent rotational and axial purchase in the humerus. I remove the broach handle left the size # [address] Radhaen subluxed thehumerus posterior to the glenoid. I then placed retractors around the posterior and anterior glenoid to expose theglenoid. Glenoid labrum was removed with Bovie cautery protecting the axillary nerve. We then used the 29 mm guide fromWillamnier to position our centering pin,exiting approximately 25 mm from the joint surface along the a nterior scapula. Guide was removed and pin was analyzed and compared to preoperative planning. It appeared to be in appropriate position. The Nautilus shaped reamer was then placed over top of the centering pin. I reamed a flat surface of the glenoid. We then removed the reamer and used the cannulated drill for the short central post. Post and baseplate was assembled on the back table. We then inserted thebaseplate and central post the assembled baseplate to an appropriate depth with good press-fit purchase. A [place] was used to confirm depth. Cortical screws then were placed in the peripheralholes with good purchase. The baseplate had excellent purchase and the entire scapula would rotate with rotation of the baseplate. We then impacted the 42 mm glenosphere with a standard eccentricity and tightened the locking screw mechanism. We then removed retractors and turned our attention back to the humerus. I trialed multiple polyethylene sizes. I placed a +6 millimeters retentive polyethylene insert. I then reduced the shoulder. There was excellent range ofmotion and stability in all planes of motion. We selected this as our final size. We removed trials from the humerus after final dislocation. I copiously irrigated the canal. Broach was placed on hand and then impacted to an appropriate depth. Final + 6 mm retentive polyethylene insert was placed. Final reduction was then performed. The subscapularis was then identified with a tagging suture. Repair would have been likely under undue tension and likely failed. I elected to not perform a subscapularis repair. We then copiously irrigated the wound with sterile Betadine and normal saline solution. We reapproximated the interval with 0 Vicryl suture. Subcutaneous layers were reapproximated with 2 -0 Vicryl suture. Skin was finally running V- Loc 3-0 Monocryl suture and Dermabond. A sterile silver Mepilex dressing was applied. Patient was then placed in an ultra sling. Patient tolerated procedure well without complication. He was positioned back in the supine position extubated in the operative suite. He was transferred to the rwyandanch and subsequently to PACU in stable condition. Need for skilled drafter assistant: Oneyda Solano PA-C was critical to the outcome of thecase. During the course of the procedure the physician drafter assistant played a vitalrole. Her intimate knowledge of my stepsin the procedure aided in safe and expedient completion of the procedure. The PA played a vital role in positioning particularly in obtaining the appropriate positioning. The PA was also vital in theretraction of soft tissues during the exposure and protecting vital structures. The PA was also vital and protecting soft tissues during times of bony cuts. She also played a vital role in closure with my direct supervision. The PA was also important during reduction and dislocation of the joint and trials intraoperatively. Intraoperative medications: 2 g Ancef IV, 1 g TXA IV x2 Post Operative Plan: Weightbearing: Nonweightbearing right upper extremity, okay for pendulums. Range of motion of wristelbow and hand as tolerated. Sling x 4 weeks postoperatively. Antibiotics: 2 g Ancef IV prior to incision, 24 hours IV antibiotics postoperatively. DVT Prophylaxis: Aspirin enteric-coated 81 mg twice daily starting tomorrow Hunter: None Dressing: Maintain silver dressing x5 days. Okay to shower dressing on started on day 4 X-Rays: 2 weeks postop in the office Pain Medication: Oxycodone Rx upon discharge Follow-up: 2 weeks post-operatively with me in the office Surgical Findings: Rotator cuff tear arthropathy. Stable right shoulder following final reduction. Complications Complications: No Admit VTE Documentation VTE Present on Admission: No VTE Mechan Device Prophylaxis: SCD's and Knee High JESE Hose VTE Pharm Prophylaxis ordered?: Yes 12/23/24 1328 Cosigner Signature (if applicable): CC: Dr. Matt Saul MD; Dr. Major Yi, DO~ Signed [facility]09-08-2025 Consult note Author Osei Lubin [facility] Note Date/Time December 23, 2024 10:57am [facility] Medical Records Department [address] [place] [address] Pre-Anesthesia Evaluation 12/23/24 1052 MR#: [id number] Acct: [id number] Name: MARIA E GUTHRIE Rep #:[id number] : 1950 74 From: Osei Choudhury PCP: Dr. Matt Saul MD Status :REG [facility] Y Race: C Location: [place] [address] ASA Classification* ASA Classification ASA Classification: 2 Assessment & Plan Anesthesia* Anesthesia Assessment Anesthesia Assessment: Discussed sedation and/or anesthesia options, risks, benefits, and alternatives with patient/parents/legal guardian/POA. Questions invited. The patient/parents/legal guardian/POA seems to understand and agrees to proceedwith anesthesia plan. Reviewed the physical assessment, medical history, allergy history and patient home medications list prior to surgery/procedure/anesthetic and documented any changes. Performed airway and anesthesia risk assessments. Anesthesia Type Anesthesia Type: General and Block History Source History Obtained from:: Patient and Chart Anesthesia Focused Assessment* Temperature: 97.6 F Pulse Rate: 57 Blood Pressure: 147/90 Respiratory Rate: 16 Pulse Ox: 99 Oxygen Delivery Method: Room Air Airway Assessment Mouth opens: >3 cm Mallampati Score: II Teeth Condition: Caps/Crowns Neck Range of motion (ROM): Full ROM Labs Anesthesia Preop lab: CBC WBC 4.1 K/mm3 (4.4-11.0) L 08/17/23 22:05 08/17/23 RBC 5.22 M/mm3 (4.6-6.2) 08/17/23 22:08/17/23 Hgb 15.4 g/dL (13.0-16.5) 08/17/23 22:08/17/23 Hct 45.4 % (40-54) 08/17/23 22:08/17/23 Plt Count 147 K/mm3 (150-450) L 08/17/23 22:05 08/17/23 CHEMISTRY Potassium 3.1 mmol/L (3.5-5.1) L 08/17/23 22:05 08/17/23 Sodium 135 mmol/L (136-145) L 08/17/23 22:05 08/17/23 Magnesium 1.8 mg/dL (1.5-2.2) 12/23/24 10:15 12/23/24 BUN 18 mg/dL (7-18) 08/17/23 22:05 08/17/23 Creatinine 0.97 mg/dL (0.70-1.30) 08/17/23 22:05 08/17/23 Glucose 195 mg/dL (74-106) H 08/17/23 22:05 08/17/23 TSH 1.39 uIU/mL (0.358-3.74) 12/27/19 09:37 COAG PT 13.4 SECONDS (11.7-14.9) 07/24/14 07:45 Pre-Assessment Diagnosis/Proposed Procedure Planned Operative Procedure(s): RIGHT REVERSE TOTAL SHOULDER ARTHROPLASTY Anesthesia History 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 When Was Last Pacemaker Check QUESTION #4 FULL TEXT: You/Your Family Experience fever (hyperthermia) with Anesthesia Last Oral Intake Last Oral intake: Last Oral Intake NPO since 06:00 12/23/24 10:31 Meds taken in AM with sips of Yes 12/23/24 10:31 water? 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 Female No 12/03/24 10:59 HX of Motion Sickness No 12/03/24 10:59 HX of N/V After Surgery No 12/03/24 10:59 Non-Smoker Yes 12/03/24 10:59 Duration of Surgery greater Yes 12/03/24 10:59 than 60 minutes Number of Risk Factors 2 12/03/24 10:59 PONV Score Moderate Risk 12/03/24 10:59 Height & Weight Height & Weight: Anesthesia: Height & Weight Height 6 ft 12/23/24 10:31 Weight: 90 kg 12/23/24 10:31 Body Mass Index (BMI) 26.9 12/23/24 10:31 Respiratory Assessment Respiratory Assessment - 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 Has anyone observed you stop No 12/03/24 10:59 breathing during sleep? STOP Results Negative 12/03/24 10:59 QUESTION #5 FULL TEXT : Do you snore loudly (louder than talking or can be heard through closed doors)? 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 Specify any problems Hx of Preganancy in last 3 N/A 12/03/24 10:59 Months Nurse Filling Out Transfusion DSCHRIBER 12/03/24 10:59 & Questions: Date: 12/03/24 12/03/24 10:59 Time: 11:01 12/03/24 10:59 Patient unable to answer at this time (ie. 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 Hx Now No 12/03/24 10:59 Gestational Age (in weeks): EDC: Hx Hx Para Hx Section SAB No 12/03/24 10:59 Active Medications Active Medications: Current Medications Generic Name Dose Route Start Last Admin Trade Name Freq PRN Reason Stop Dose Admin Acetaminophen 1,000 mg 12/23/24 12:00 12/23/24 10:29 Acetaminophen 500 Mg Tablet PO 12/23/24 12:01 1,000 mg PREOP ONE Administration Celecoxib 400 mg 12/23/24 12:00 12/23/24 10:30 Celecoxib 200 Mg Capsule PO 12/23/24 12:01 400 mg PREOP ONE Administration Dexamethasone Sodium Phosphate 10 mg 12/23/24 12:00 Dexamethasone 10 Mg/Ml Vial IV 12/23/24 12:01 INTRAOP ONE Gabapentin 600 mg 12/23/24 12:00 12/23/24 10:30 Gabapentin 600 Mg Tablet PO 12/23/24 12:01 600 mg PREOP ONE Administration Lactated Ringer's 1,000 mls @ 999 mls/hr 12/23/24 12:00 12/23/24 10:29 IV 12/23/24 13:00 999 mls/hr .Q1H1M ALE Administration Cefazolin Sodium 2 gm/ Sodium 110 mls @ 150 mls/hr 12/23/24 12:00 Chloride IV 12/23/24 12:43 INTRAOP ONE Tranexamic Acid 1,000 mg/ 110 mls @ 660 mls/hr 12/23/24 12:00 Sodium Chloride IV 12/23/24 12:09 INTRAOP ONE Lactated Ringer's 1,000 mls @ 999 mls/hr 12/23/24 12:00 IV 12/23/24 13:00 .Q1H1M ALE Lactated Ringer's 1,000 mls @ 125 mls/hr 12/23/24 12:00 IV 12/23/24 19:59 .Q8H ALE Magnesium Sulfate 2 gm/ 104 mls @ 208 mls/hr 12/23/24 10:50 Dextrose IV 12/23/24 11:19 PREOP ONE Insulin Human Lispro 1 - 6 unit 12/23/24 12:00 12/23/24 10:38 Insulin Lispro 100 Unit/Ml Insuln.Pen SC 12/23/24 18:00 1 u Q4H PRN PRN Administration BG>/= 180, SEE PROTOCOL Protocol PFSH Medical History Wears hearing aid Wears glasses Wears partial dentures History of steroid therapy Arthritis Dietary restriction Non-smoker History of echocardiogram History of stress test Cardiology follow-up encounter Diabetes Myocardial infarct Hypertension Osteoarthritis Gout Atherosclerosis of coronary artery of [place] heart without angina pectoris Hyperlipidemia Home Medications ?Medication ?Instructions ?Recorded ?Last Taken ?Type aspirin 81 mg tablet,delayed 81 mg PO DAILY@0800 06/0912/17/24 History release metoprolol tartrate 25 mg tablet 25 mg PO BID 05/10/17 12/23/24 06:26 History metformin 500 mg tablet 500 mg PO BID 05/11/1712/22 History ezetimibe 10 mg tablet 10 mg PO DAILY #180 tabs 12/22/24 Rx cholecalciferol (vitamin D3) 25 4,000 unit PO DAILY 12/17/24 History mcg (1,000 unit) tablet cyanocobalamin (vitamin B-12) 500 mcg PO DAILY 0 12/17/24 History 1,000 mcg capsule alirocumab 75 mg/mL subcutaneous 150 mg subcut Q2W 02/0412/15/24 History pen injector (Praluent Pen) losartan 100 mg tablet 100 mg PO QHS 02/08/2212/22 History allopurinol 300 mg tablet 300 mg PO BID 04/04/2412/22 History Allergy/AdvReac Type Severity Reaction Status Date / Time Bqezejb-QIQ-VkJ Reductase AdvReac Mild myalgias Verified 12/23/24 10:26 Inhibitor (Mmicrhj-Qwk-Ejk Reductase Inhibitor) Family History Brother CAD (coronary artery disease) Hx of CABG Surgical History Hx of colonoscopy Hx of total knee arthroplasty History of coronary artery stent placement History of left knee replacement (03/20/19) History of right knee surgery History of left knee surgery History of repair of rotator cuff Social History Smoking Status: Never smoker alcohol intake: never substance use type: does not use caffeine: Yes Type: carbonated beverages Number of servings: 1 Review of Systems (Anesthesia) ROS Narrative System reviewed and no additional complaints, except as documented. 12/23/24 1057 <Electronically signed by Osei Lubin MD> Date _ Osei Lubin MD Cosigner Signature: Date CC: ~ Signed [facility] Work Phone: 1(923) 847-794409-08-2025 Consult note [facility] Medical Records Department [address] [place] [address] Pre-Anesthesia Evaluation 12/23/24 1052 MR#: [id number] Acct: [id number] Name: MARIA E UGTHRIE Rep #:[id number] : 1950 74 From: Osei Choudhury PCP: Dr. Matt Saul MD Status :REG [facility] Y Race: C Location: [place] [address] ASA Classification* ASA Classification ASA Classification: 2 Assessment & Plan Anesthesia* Anesthesia Assessment Anesthesia Assessment: Discussed sedation and/or anesthesia options, risks, benefits, and alternatives with patient/parents/legal guardian/POA. Questions invited. The patient/parents/legal guardian/POA seems to understand and agrees to proceedwith anesthesia plan. Reviewed the physical assessment, medical history, allergy history and patient home medications list prior to surgery/procedure/anesthetic and documented any changes. Performed airway and anesthesia risk assessments. Anesthesia Type Anesthesia Type: General and Block History Source History Obtained from:: Patient and Chart Anesthesia Focused Assessment* Temperature: 97.6 F Pulse Rate: 57 Blood Pressure: 147/90 Respiratory Rate: 16 Pulse Ox: 99 Oxygen Delivery Method: Room Air Airway Assessment Mouth opens: >3 cm Mallampati Score: II Teeth Condition: Caps/Crowns Neck Range of motion (ROM): Full ROM Labs Anesthesia Preop lab: CBC WBC 4.1 K/mm3 (4.4-11.0) L 08/17/23 22:08/17/23 RBC 5.22 M/mm3 (4.6-6.2) 08/17/23 22:08/17/23 Hgb 15.4 g/dL (13.0-16.5) 08/17/23 22:08/17/23 Hct 45.4 % (40-54) 08/17/23 22:08/17/23 Plt Count 147 K/mm3 (150-450) L 08/17/23 22:08/17/23 CHEMISTRY Potassium 3.1 mmol/L (3.5-5.1) L 08/17/23 22:08/17/23 Sodium 135 mmol/L (136-145) L 08/17/23 22:08/17/23 Magnesium 1.8 mg/dL (1.5-2.2) 12/23/24 10:15 12/23/24 BUN 18 mg/dL (7-18) 08/17/23 22:05 08/17/23 Creatinine 0.97 mg/dL (0.70-1.30) 08/17/23 22:05 08/17/23 Glucose 195 mg/dL (74-106) H 08/17/23 22:05 08/17/23 TSH 1.39 uIU/mL (0.358-3.74) 12/27/19 09:37 COAG PT 13.4 SECONDS (11.7-14.9) 07/24/14 07:45 Pre-Assessment Diagnosis/Proposed Procedure Planned Operative Procedure(s): RIGHT REVERSE TOTAL SHOULDER ARTHROPLASTY Anesthesia History 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 When Was Last Pacemaker Check QUESTION #4 FULL TEXT: You/Your Family Experience fever (hyperthermia) with Anesthesia Last Oral Intake Last Oral intake: Last Oral Intake NPO since 06:00 12/23/24 10:31 Meds taken in AM with sips of Yes 12/23/24 10:31 water? 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 Female No 12/03/24 10:59 HX of Motion Sickness No 12/03/24 10:59 HX of N/V After Surgery No 12/03/24 10:59 Non-Smoker Yes 12/03/24 10:59 Duration of Surgery greater Yes 12/03/24 10:59 than 60 minutes Number of Risk Factors 2 12/03/24 10:59 PONV Score Moderate Risk 12/03/24 10:59 Height & Weight Height & Weight: Anesthesia: Height & Weight Height 6 ft 12/23/24 10:31 Weight: 90 kg 12/23/24 10:31 Body Mass Index (BMI) 26.9 12/23/24 10:31 Respiratory Assessment Respiratory Assessment - 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 Has anyone observed you stop No 12/03/24 10:59 breathing during sleep? STOP Results Negative 12/03/24 10:59 QUESTION #5 FULL TEXT : Do you snore loudly (louder than talking or can be heard through closeddoors)? 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 Specify any problems Hx of Preganancy in last 3 N/A 12/03/24 10:59 Months Nurse Filling Out Transfusion DSCHRIBER 12/03/24 10:59 & Questions: Date: 12/03/24 12/03/24 10:59 Time: 11:01 12/03/24 10:59 Patient unable to answer at this time (ie. 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 Hx Now No 12/03/24 10:59 Gestational Age (in weeks): EDC: Hx Hx Para Hx Section SAB No 12/03/24 10:59 Active Medications Active Medications: Current Medications Generic Name Dose Route Start Last Admin Trade Name Freq PRN Reason Stop Dose Admin Acetaminophen 1,000 mg 12/23/24 12:00 12/23/24 10:29 Acetaminophen 500 Mg Tablet PO 12/23/24 12:01 1,000 mg PREOP ONE Administration Celecoxib 400 mg 12/23/24 12:00 12/23/24 10:30 Celecoxib 200 Mg Capsule PO 12/23/24 12:01 400 mg PREOP ONE Administration Dexamethasone Sodium Phosphate 10 mg 12/23/24 12:00 Dexamethasone 10 Mg/Ml Vial IV 12/23/24 12:01 INTRAOP ONE Gabapentin 600 mg 12/23/24 12:00 12/23/24 10:30 Gabapentin 600 Mg Tablet PO 12/23/24 12:01 600 mg PREOP ONE Administration Lactated Ringer's 1,000 mls @ 999 mls/hr 12/23/24 12:00 12/23/24 10:29 IV 12/23/24 13:00 999 mls/hr .Q1H1M ALE Administration Cefazolin Sodium 2 gm/ Sodium 110 mls @ 150 mls/hr 12/23/24 12:00 Chloride IV 12/23/24 12:43 INTRAOP ONE Tranexamic Acid 1,000 mg/ 110 mls @ 660 mls/hr 12/23/24 12:00 Sodium Chloride IV 12/23/24 12:09 INTRAOP ONE Lactated Ringer's 1,000 mls @ 999 mls/hr 12/23/24 12:00 IV 12/23/24 13:00 .Q1H1M ALE Lactated Ringer's 1,000 mls @ 125 mls/hr 12/23/24 12:00 IV 12/23/24 19:59 .Q8H ALE Magnesium Sulfate 2 gm/ 104 mls @ 208 mls/hr 12/23/24 10:50 Dextrose IV 12/23/24 11:19 PREOP ONE Insulin Human Lispro 1 - 6 unit 12/23/24 12:00 12/23/24 10:38 Insulin Lispro 100 Unit/Ml Insuln.Pen SC 12/23/24 18:00 1 u Q4H PRN PRN Administration BG>/= 180, SEE PROTOCOL Protocol PFSH Medical History Wears hearing aid Wears glasses Wears partial dentures History of steroid therapy Arthritis Dietary restriction Non-smoker History of echocardiogram History of stress test Cardiology follow-up encounter Diabetes Myocardial infarct Hypertension Osteoarthritis Gout Atherosclerosis of coronary artery of [place] heart without angina pectoris Hyperlipidemia Home Medications ?Medication ?Instructions ?Recorded ?Last Taken ?Type aspirin 81 mg tablet,delayed 81 mg PO DAILY@0800 06/0912/17/24 History release metoprolol tartrate 25 mg tablet 25 mg PO BID 05/10/17 12/23/24 06:26 History metformin 500 mg tablet 500 mg PO BID 05/11/1712/22 History ezetimibe 10 mg tablet 10 mg PO DAILY #180 tabs 12/22/24 Rx cholecalciferol (vitamin D3) 25 4,000 unit PO DAILY 12/17/24 History mcg (1,000 unit) tablet cyanocobalamin (vitamin B-12) 500 mcg PO DAILY 0 12/17/24 History 1,000 mcg capsule alirocumab 75 mg/mL subcutaneous 150 mg subcut Q2W 02/0412/15/24 History pen injector (Praluent Pen) losartan 100 mg tablet 100 mg PO QHS 02/08/2212/22 History allopurinol 300 mg tablet 300 mg PO BID 04/04/2412/22 History Allergy/AdvReac Type Severity Reaction Status Date / Time Pulskuw-GYZ-DvL Reductase AdvReac Mild myalgias Verified 12/23/24 10:26 Inhibitor (Djucvwo-Ueb-Ned Reductase Inhibitor) Family History Brother CAD (coronary artery disease) Hx of CABG Surgical History Hx of colonoscopy Hx of total knee arthroplasty History of coronary artery stent placement History of left knee replacement (03/20/19) History of right knee surgery History of left knee surgery History of repair of rotator cuff Social History Smoking Status: Never smoker alcohol intake: never substance use type: does not use caffeine: Yes Type: carbonated beverages Number of servings: 1 Review of Systems (Anesthesia) ROS Narrative System reviewed and no additional complaints, except as documented. 12/23/24 1057 MD> Date _ Osei Lubin MD Cosigner Signature: Date CC: ~ Signed [facility]08-14-2025 Radiology Diagnostic study note [facility] Imaging Services [address] [place] [address] Extremity Upper without Contra MR#: [id number] Acct: [id number] Name: MARIA E GUTHRIE Rep #: [id number] : 1950 M 74 From: Sean Garcia MD PCP: Dr. Matt Saul MD Status: REG CLI Study:Extremity Upper without Contra Date of Exam: 11/26/24 Exam# [id number] Ordering Dr: Major Yi DO PROCEDURE: EXTREMITY UPPER WITHOUT CONTRA 11/26/2024 REASON FOR EXAM: BLUE PRINT PROTOCOL,PRIMARY OSTEOARTHRITIS, RIGHT SHOULDER TECHNIQUE: EXTREMITY UPPER WITHOUT CONTRA Coronal and Sagittal reconstruction series were provided. One or more dose reduction techniques were used (e.g., Automated exposure control, adjustment of the mA and/or kV according to patient size, use of iterative reconstruction technique. RADIATION DOSE SUMMARY: DLP: 803 mGycm COMPARISON: None FINDINGS: There is postsurgical change with suture anchors noted in the humeral head consistent with prior rotator cuff repair. There is severe supraspinatus and infraspinatus muscular atrophy, consistent with chronicrotator cuff tear. There is severe osteoarthritis of the glenohumeral articulation with joint space narrowing and marginal osteophytes. No acute fracture or dislocation is identified. The AC joint is aligned. There are corticated osteochondral fragments inthe anterior superior joint space with the largest measuring 0.4 cm. There is a 0.5 cm corticated osteochondral fragment in thesuperior subscapularis recess. There is a moderate joint effusion. Mineralization is normal. Atherosclerotic calcifications are visible. CT/Extremity Upper without Contra IMPRESSION: There is postsurgical change with suture anchors noted in the humeral head consistent with prior rotator cuff repair. There is severe supraspinatus and infraspinatus muscular atrophy, consistent with chronic rotator cuff tear. There is severe osteoarthritis of the glenohumeral articulation with joint spacenarrowing and marginal osteophytes. Reading Location: [facility] CC: Dr. Matt Saul MD; Dr. Major Yi DO ~ Embedded Hardware Engineer: Signed [facility]03-04-2025 Radiology Diagnostic study note [facility] Imaging Services [address] [place] [id number] Ankle min 3 Views MR#: [id number] Acct: [id number] Name: MARIA E GUTHRIE Rep #: [id number] : 1950 M 74 From: Shannon Joshua MD PCP: Dr. Matt Saul MD Status: REG CLI Study:Ankle min 3 Views Date of Exam: Exam# [id number] Ordering Dr: Luna Saul MD EXAM: XR Right Ankle Complete, 3 or More Views CLINICAL INDICATION: TECHNIQUE: Frontal, lateral and oblique views of the right ankle. COMPARISON: No relevant prior studies available. FINDINGS: BONES/JOINTS: See below. SOFT TISSUES: Soft tissue swelling without acute fracture. OTHER FINDINGS: Suboptimal exam secondary to underpenetration. RAD/Ankle min 3 Views IMPRESSION: 1. Soft tissue swelling without acute fracture. 2. If symptoms persist, further evaluation with CT is recommended. Reading Location: [facility] CC: Dr. Matt Saul MD ~ Embedded Hardware Engineer: Signed [facility]03-04-2025 Radiology Diagnostic study note [facility] Imaging Services [address], [place] [address] Foot min 3 Views MR#: [id number] Acct: [id number] Name: MARIA E GUTHRIE Rep #: [id number] : 1950 M 74 From: Laurent Alva MD PCP: Dr. Matt Saul MD Status: REG CLI Study:Foot min 3 Views Date of Exam: 08/09 Exam# [id number] Ordering Dr: Luna Saul MD PROCEDURE: FOOT MIN 3 VIEWS REASON FOR EXAM: Several month history of pain. TECHNIQUE: 3 views of the right foot were obtained. COMPARISON: None. FINDINGS: RIGHT FOOT: Marked degree of joint space narrowing at the 1st metatarsophalangeal joint withperiarticular calcifications. Gout should be ruled out. Calcaneal spurs. RAD/Foot min 3 Views IMPRESSION: Degenerative changes at the 1st metatarsal phalangeal joint with periarticular ossifications suggestive of gout. Calcaneal spurs. Reading Location: [id number] CC: Dr. Matt Saul MD ~ Embedded Hardware Engineer: Signed [facility]12-19-2024 Evaluation note* Diagnosis Onset Date Resolution Status Admit Date Essential hypertension chronic De cember 2023 2:13pm History of coronary artery stent placement August 17, 2006 chronic April 04, 2 024 2:13pm Hyperlipidemia chronic March 172023 2:13pm [facility] Work Phone: 1(166) 698-531611-11-2024 History of Present illness Narrative* Maddie Bernstein APRN.RELIGIOUS EDUCATOR - 02/26/2024 1:00 PM EST FOLLOW UP VISIT - ENDOSCOPY Maria E Guthrie 1950 [id number] REFERRING PHYSICIAN: Matt Saul (Rashida) [address] [facility] [address] Maria E Guthrie is a patient I am following for colonoscopy screening d/t polyps. Dr. Lord performed lower endoscopy on 02/19/24. The patient was found to have Impression: - Preparation of the colon was inadequate. - One diminutive polyp in the sigmoid colon, removed with a jumbo cold forceps. Resected and retrieved. - The examination was otherwise normal. - Non-bleeding internal hemorrhoids. Pathology demonstrated: FINAL DIAGNOSIS A. Colon, sigmoid, polyp, polypectomy -Tubular adenoma The patient notes no complaints since the procedure. Maria E was seen in the office for consult with in 3 days of the scope and I believe this contributed to the poor bowel prep. Patient states he followed the prep instructions. VITALS: There were no vitals taken for this visit. General: patient is alert, cooperative, pleasant and in no acute distress On examination, the abdomen is benign. Assessment ASSESSMENT/PLAN: 1. History of colonic polyps - ICD9: V12.72, ICD10: Z86.0100 The operative findings and pathology report were reviewed with the patient, and the patient has hadthe opportunity to ask questions and have questions answered. If the patient notes any problems or changes in bowel function, the patient should contact me immediately. Otherwise I recommend follow up endoscopy in 3 years. HM updated and recall letter generated. Discussed treatment plan and patient voices understanding. Patient's questions answered appropriately. Medications and potential side effects were discussed and patient voices understanding. Return to the office as scheduled or as needed for worsening/no improvement. Maddie Bernstein APRN.RELIGIOUS EDUCATOR documented in this [facility]24 NoteHNO ID: [id number] Author: MADDIE BERNSTEIN APRN.RELIGIOUS EDUCATOR Service: ? Author Type: Nurse Practitioner Type: Progress Notes Filed: 02/26/2024 13:03 Note Text: FOLLOW UP VISIT - ENDOSCOPY Maria E Guthrie 1950 [id number] REFERRING PHYSICIAN: Matt Saul (Rashida) [address] [place] [id number] Maria E Guthrie is a patient I am following for colonoscopy screening d/t polyps. Dr. Lord performed lower endoscopy on 02/19/24. The patient was found to have Impression: - Preparation of the colon was inadequate. - One diminutive polyp in the sigmoid colon, removed with a jumbo cold forceps. Resected and retrieved. - The examination was otherwise normal. - Non-bleeding internal hemorrhoids. Pathology demonstrated: FINAL DIAGNOSIS A. Colon, sigmoid, polyp, polypectomy -Tubular adenoma The patient notes no complaints since the procedure. Maria E was seen in the office for consult with in 3 days of the scope and I believe this contributed to the poor bowel prep. Patient states he followed the prep instructions. VITALS: There were no vitals taken for this visit. General: patient is alert, cooperative, pleasant and in no acute distress On examination, the abdomen is benign. Assessment ASSESSMENT/PLAN: 1. History of colonic polyps - ICD9: V12.72, ICD10: Z86.0100 The operative findings and pathology report were reviewed with the patient, and the patient has had the opportunity to ask questions and have questions answered. If the patient notes any problems or changes in bowel function, the patient should contact me immediately. Otherwise I recommend follow up endoscopy in 3 years. HM updated and recall letter generated. Discussed treatment plan and patient voices understanding. Patient's questions answered appropriately. Medications and potential side effects were discussed and patient voices understanding. Return to the office as scheduled or as needed for worsening/no improvement. Maddie Bernstein APRN.[facility]11-04-2024 Note* Discharge Instr - Nursing - Estelle Bird RN - 02/19/2024 12:17 PM EST The patient received a copy of Colonoscopy discharge instructions that contain information for how to contact the physician who performed the procedure and when to seek medical care. [facility]11-04-[facility] Miscellaneous Notes* Discharge Instr - Nursing - Estelle Bird RN - 02/19/2024 12:17 PM EST The patient received a copy of Colonoscopy discharge instructions that contain information for how to contact the physician who performed the procedure and when to seek medical care. documented in this encounterW[facility]ot [facility]11-04-2024 NoteHNO ID: [id number] Author: ESTELLE BIRD RN Service: ? Author Type: Registered Nurse Type: Nursing Progress Note Filed: 02/19/2024 12:15 Note Text: Abdomen soft non-distended. Will continue to monitor.[facility] 02-19-2024 Nurse Note* Estelle Bird RN - 02/19/2024 12:00 PM EST Abdomen soft non-distended. Will continue to monitor. [facility]11-04[facility] Nurse Note* Estelle Bird RN - 02/19/2024 12:00 PM EST Abdomen soft non-distended. Will continue to monitor. documented in this encounterWy[facility]11-04-2024 History and physical note * Demetri Lord MD - 02/19/2024 11:45 AM EST HISTORY AND PHYSICAL Maria E Guthrie : 1950 REFERRING PHYSICIAN: No referring provider defined for this encounter. CHIEF COMPLAINT: Patient presents with: Consult: colonoscopy HPI: Maria E is a 73 year old male referred for endoscopy. Maria E notes due for screening colonoscopy-hx of polyps (2020). Maria E denies abdominal pain.. Maria E denies diarrhea. Maria E denies constipation. Maria E denies a change in bowel habits. Maria E denies melena. Maria E denies bright red blood per rectum. Maria E denies hemorrhoids. Maria E denies heartburn. Maria E denies dysphagia. Maria E denies a history of ulcers/ peptic ulcer disease. Medica history is significant for HLD, HTN, CAD with stent x 1 (2006), gout and BPH. Denies CP, SOB, dizziness, palpitations, syncope, edema, recent hospitalizations Maria E denies family history of colon issues. Maria E has undergone prior endoscopy. Last colonoscopy 06/[address] Park at [facility]. Sedation:Midazolam 5 mg IV, Fentanyl 100 micrograms IV Impression: - Three small polyps in the proximal transverse colon, in the distal transverse colon and in the cecum, removed with a cold snare. Resected and retrieved. - Diverticulosis in the entire examined colon. - The examination was otherwise normal on direct and retroflexion views. CONVERTED FINAL DIAGNOSIS 1. Colon, cecum, polyp, biopsy (A) Tubular adenoma. 2. Colon, transverse, polyp, biopsy (B) Tubular adenoma. 3. Colon, distal transverse, polyp, biopsy (C) Tubular adenoma. CURRENT MEDICATIONS Current Outpatient Medications Medication Sig alirocumab (PRALUENT) 150 mg/mL pen Inject 150 mg subcutaneously. losartan (COZAAR) 100 mg tablet Take 100 mg by mouth. fluticasone (FLONASE) 50 mcg/actuation nasal spray Use 1 [place] in the nose once daily. cyanocobalamin (VITAMIN B-12) 500 mcg tablet Take 1 tablet by mouth once daily. clotrimazole (LOTRIMIN) 1 % cream Apply to affected area. allopurinol (ZYLOPRIM) 100 mg tablet Take 400 mg by mouth once daily. METFORMIN HCL (METFORMIN ORAL) Take by mouth. metoprolol tartrate, short acting, (LOPRESSOR) 25 mg tablet Take 1 tablet by mouth twice daily. Aspirin 81 mg Tab Take 1 tablet by mouth once daily. Take with food. ezetimibe (ZETIA) 10 mg ORAL tablet Take one(1) tablet daily. peg 3350-Electrolytes (GOLYTELY) 236-22.74-6.74 -5.86 gram suspension Take 4,000 mL by mouth one time only for 1 dose. Refer to printed prep instructions from your provider. No current facility-administered medications for this visit. ALLERGIES: Zocor [Simvastatin] PAST MEDICAL HISTORY PAST MEDICAL HISTORY Diagnosis Date Acute myocardial infarction of other specified sites, episode of care unspecified 2006 Myocardial Infarction, had angioplasty Coronary artery disease Diabetes (HCC) Gout Mixed hyperlipidemia Hyperlipidemia Unspecified essential hypertension Essential hypertension PAST SURGICAL HISTORY PAST SURGICAL HISTORY Procedure Laterality Date ARTHROSCOPY KNEE DIAGNOSTIC W/WO SYNOVIAL BX SPX Arthroscopy, knee X2 COLONOSCOPY SCRN NOT HIGH RISK 06/30/2020 CORONARY ENDARTERCOMY OPEN ANY METHOD 08/2006 Angioplasty, 1 DRUG ELUTING stent JOINT REPLACEMENT HX PAST SURGICAL HISTORY OF 04/2009 Right rotator cuff repair surgery PAST SURGICAL HISTORY OF 2010 L rotator cuff TOTAL KNEE REPLACEMENT Bilateral 03/20/2019 VASCULAR SURGERY PROCEDURE FAMILY HISTORY FAMILY HISTORY Problem Relation Age of Onset Cancer Mother Bone COPD Father Coronary Artery Disease Brother SOCIAL HISTORY Social History Tobacco Use Smoking status: Never Smokeless tobacco: Never Vaping Use Vaping status: Never Used Substance Use Topics Alcohol use: No Drug use: No REVIEW OF SYMPTOMS: The review of systems data was entered by the nurse and reviewed by wi Nursing Notes: Francisca Spann RN 02/16/2024 2:03 PM Signed REVIEW OF SYSTEMS: General: The patient denies fatigue, denies weight loss, denies weight gain, denies feeling hot, and denies feelings of cold. Eyes: The patient denies glaucoma, denies eye injury/surgery, wears glasses or contacts. Ear/Nose/Throat: The patient NOTES allergies, denies hayfever, denies ear infections, and denies bloody noses. Cardiovascular: The patient denies chest pain, NOTES heart disease, NOTES high blood pressure,NOTEScardiac stent, NOTES prior heart attack, denies irregular heart beat, NOTES high cholesterol, denies poor circulation, denies heart failure, other cardiac issues, denies claudication, denies cold feet, denies peripheral arterial stent. Respiratory: The patient denies tuberculosis, denies pneumonia, denies frequent cough, denies pulmonary embolism, denies shortness of breath, and denies coughing up blood. Gastrointestinal: The patient denies difficulty swallowing, denies acid reflux, denies ulcers, denies vomiting, denies jaundice/hepatitis, denies gallbladder problems, denies black or tarry stools, denies hemorrhoids, denies bleeding from rectum, denies diverticulitis, denies constipation, denies diarrhea, denies loss of stool control, and denies hernias. Kidney/Bladder: The patient denies kidney stones, denies urine infections, and denies bloody urine. Skin: The patient denies a history of skin cancer, denies bleeding/changing moles, and denies a history of skin rash. Neurologic: The patient denies a history of epilepsy/convulsions, denies headaches, denies head/spinal injuries, and denies stroke/TIA. Psychiatric: The patient denies psychiatric medications, denies depression, and denies voices, denies substance abuse. Endocrine: The patient denies thyroid disorders, denies diabetes, and denies hormonal problems. Hematologic: The patient denies a history of bruising, denies bleeding, and denies anemia, denies blood clots. Infections: The patient denies a history of measles and mumps, denies rheumatic fever, and denies sexually transmitted diseases. Musculoskeletal: The patient denies back pain/injury, denies back problems, denies sciatica, deniesknee/foot trouble, denies arthritis, or denies gout. When was patient's last Mammogram screening? N/A Last Colonoscopy: 07/10/2020 Francisca Spann RN PHYSICAL EXAMINATION: General: The patient is 73 year old, male well nourished, well hydrated in no acute distress. The patient is oriented to time, place, and person. VITALS: Blood pressure 138/82, pulse 80, temperature 36.6 C (97.8 F), height 182.9 cm (6'), weight 90.9 kg (200 lb 6.4 oz), SpO2 92%. Body mass index is 27.18 kg/m . HEENT: Normal cephalic, ataumatic, pupils are equally round, sclera are anicteric, mucous membranesare moist, oropharynx is clear. Neck has no masses, asymmetry or lymphadenopathy. Respiratory: Clear to auscultation and percussion. Normal respiratory excursion and pattern. Cardiac: Examination is regular rate and rhythm. Normal S1/S2 Abdominal exam: Soft, nontender, with no palpable masses. No hepatosplenomegaly. No palpable hernias. Extremities: no clubbing, cyanosis or edema. No adenopathy. LABORATORY VALUES: As Noted RADIOLOGIC STUDIES: As Noted Assessment IMPRESSION: screen for colon cancer, history of polyps PLAN: I have reviewed my findings with the surgeon. Will plan for lower endoscopy. We discussed therisks and benefits of the planned endoscopy. I have informed the patient that complications can occur including failure to complete the endoscopy and perforation. Maria E had the opportunity to ask questions concerning the planned endoscopy. My staff has also explained the procedure to the patient inunderstandable terms and has given the patient printed material concerning the procedure. Maria E freely consents to surgery. I plan to use Goyltely bowel preparation Patient instructed to contact PCP for instructions regarding diabetic medication, which may requireadjustment during bowel preparation and/or day of procedure. I have explained to the patient the difference between IV conscious sedation and MAC anesthesia - and I have offered either, according to the patient's wishes. I have explained that with IV conscioussedation there is no anesthesia provider available and therefore there is a limitation of the amount of IV medications that can be given and that the patient may wake up in the middle of the procedure and/or experience pain/discomfort during the procedure. Further discussion was done and the patient was given the opportunity to ask questions and all questions were answered. Maria E chooses IV conscious sedation. Maria E was counseled that if there are changes in his/her medical condition, to let the office know if surgery should proceed. If there are changes in patient's medical condition from time of this encounter to the day of the procedure that preclude anesthesia, patient may have procedure cancelled for patient's safety. Diagnoses: (Z86.0100) History of colonic polyps (primary encounter diagnosis) (Z12.11) Screen for colon cancer Portions of this documentation were copied and pasted from previous office visit notes in order to provide a cohesive continuity of the history. The note has been reviewed and edited and updated as necessary. Maddie Bernstein APRN.RELIGIOUS EDUCATOR UPDATED HISTORY AND PHYSICAL EXAMINATION SERVICE DATE: 02/19/2024 SERVICE TIME: 10:53 AM SENSITIVE EXAMINATION CONSENT: The sensitive examination was discussed with the Patient or Patient's Authorized Research And Evaluation Manager. Asapplicable, any other physician, advance practice provider, medical student, or other health professional student that will be observing or involved in the sensitive examination for educational or training purposes was discussed with the Patient or Authorized Research And Evaluation Manager. The Patient or Authorized Research And Evaluation Manager has agreed to proceed with the sensitive examination. (Sensitive examination includes inspection and/or palpation of the breasts, pelvis, prostate and anorectal regions) PHYSICAL EXAM MUST BE COMPLETED ON ADMISSION The History and Physical (completed in the past 30 days) has been reviewed and the patient has beenexamined. The contents accurately reflect the patient's condition with the following additions or revisions since the H&P was completed. Examination indicates no changes. This H&P can be found in the attached. SIGNATURE: Demetri Lord III, MD PATIENT NAME: Maria E Guthrie DATE: February 19, 2024 TIME: 10:53 AM [facility]11-04-[facility] History and physical note* Demetri Lord MD - 02/19/2024 11:45 AM EST HISTORY AND PHYSICAL Maria E Guthrie : 1950 REFERRING PHYSICIAN: No referring provider defined for this encounter. CHIEF COMPLAINT: Patient presents with: Consult: colonoscopy HPI: Maria E is a 73 year old male referred for endoscopy. Maria E notes due for screening colonoscopy-hx of polyps (2020). Maria E denies abdominal pain.. Maria E denies diarrhea. Maria E denies constipation. Maria E denies a change in bowel habits. Maria E denies melena. Maria E denies bright red blood per rectum. Maria E denies hemorrhoids. Maria E denies heartburn. Maria E denies dysphagia. Maria E denies a history of ulcers/ peptic ulcer disease. Medica history is significant for HLD, HTN, CAD with stent x 1 (2006), gout and BPH. Denies CP, SOB, dizziness, palpitations, syncope, edema, recent hospitalizations Maria E denies family history of colon issues. Maria E has undergone prior endoscopy. Last colonoscopy 06/[address] Park at [facility]. Sedation:Midazolam 5 mg IV, Fentanyl 100 micrograms IV Impression: - Three small polyps in the proximal transverse colon, in the distal transverse colon and in the cecum, removed with a cold snare. Resected and retrieved. - Diverticulosis in the entire examined colon. - The examination was otherwise normal on direct and retroflexion views. CONVERTED FINAL DIAGNOSIS 1. Colon, cecum, polyp, biopsy (A) Tubular adenoma. 2. Colon, transverse, polyp, biopsy (B) Tubular adenoma. 3. Colon, distal transverse, polyp, biopsy (C) Tubular adenoma. CURRENT MEDICATIONS Current Outpatient Medications Medication Sig alirocumab (PRALUENT) 150 mg/mL pen Inject 150 mg subcutaneously. losartan (COZAAR) 100 mg tablet Take 100 mg by mouth. fluticasone (FLONASE) 50 mcg/actuation nasal spray Use 1 [place] in the nose once daily. cyanocobalamin (VITAMIN B-12) 500 mcg tablet Take 1 tablet by mouth once daily. clotrimazole (LOTRIMIN) 1 % cream Apply to affected area. allopurinol (ZYLOPRIM) 100 mg tablet Take 400 mg by mouth once daily. METFORMIN HCL (METFORMIN ORAL) Take by mouth. metoprolol tartrate, short acting, (LOPRESSOR) 25 mg tablet Take 1 tablet by mouth twice daily. Aspirin 81 mg Tab Take 1 tablet by mouth once daily. Take with food. ezetimibe (ZETIA) 10 mg ORAL tablet Take one(1) tablet daily. peg 3350-Electrolytes (GOLYTELY) 236-22.74-6.74 -5.86 gram suspension Take 4,000 mL by mouth one time only for 1 dose. Refer to printed prep instructions from your provider. No current facility-administered medications for this visit. ALLERGIES: Zocor [Simvastatin] PAST MEDICAL HISTORY PAST MEDICAL HISTORY Diagnosis Date Acute myocardial infarction of other specified sites, episode of care unspecified 2006 Myocardial Infarction, had angioplasty Coronary artery disease Diabetes (HCC) Gout Mixed hyperlipidemia Hyperlipidemia Unspecified essential hypertension Essential hypertension PAST SURGICAL HISTORY PAST SURGICAL HISTORY Procedure Laterality Date ARTHROSCOPY KNEE DIAGNOSTIC W/WO SYNOVIAL BX SPX Arthroscopy, knee X2 COLONOSCOPY SCRN NOT HIGH RISK 06/30/2020 CORONARY ENDARTERCOMY OPEN ANY METHOD 08/2006 Angioplasty, 1 DRUG ELUTING stent JOINT REPLACEMENT HX PAST SURGICAL HISTORY OF 04/2009 Right rotator cuff repair surgery PAST SURGICAL HISTORY OF 2010 L rotator cuff TOTAL KNEE REPLACEMENT Bilateral 03/20/2019 VASCULAR SURGERY PROCEDURE FAMILY HISTORY FAMILY HISTORY Problem Relation Age of Onset Cancer Mother Bone COPD Father Coronary Artery Disease Brother SOCIAL HISTORY Social History Tobacco Use Smoking status: Never Smokeless tobacco: Never Vaping Use Vaping status: Never Used Substance Use Topics Alcohol use: No Drug use: No REVIEW OF SYMPTOMS: The review of systems data was entered by the nurse and reviewed by wi Nursing Notes: Francisca Spann RN 02/16/2024 2:03 PM Signed REVIEW OF SYSTEMS: General: The patient denies fatigue, denies weight loss, denies weight gain, denies feeling hot, and denies feelings of cold. Eyes: The patient denies glaucoma, denies eye injury/surgery, wears glasses or contacts. Ear/Nose/Throat: The patient NOTES allergies, denies hayfever, denies ear infections, and denies bloody noses. Cardiovascular: The patient denies chest pain, NOTES heart disease, NOTES high blood pressure,NOTEScardiac stent, NOTES prior heart attack, denies irregular heart beat, NOTES high cholesterol, denies poor circulation, denies heart failure, other cardiac issues, denies claudication, denies cold feet, denies peripheral arterial stent. Respiratory: The patient denies tuberculosis, denies pneumonia, denies frequent cough, denies pulmonary embolism, denies shortness of breath, and denies coughing up blood. Gastrointestinal: The patient denies difficulty swallowing, denies acid reflux, denies ulcers, denies vomiting, denies jaundice/hepatitis, denies gallbladder problems, denies black or tarry stools, denies hemorrhoids, denies bleeding from rectum, denies diverticulitis, denies constipation, denies diarrhea, denies loss of stool control, and denies hernias. Kidney/Bladder: The patient denies kidney stones, denies urine infections, and denies bloody urine. Skin: The patient denies a history of skin cancer, denies bleeding/changing moles, and denies a history of skin rash. Neurologic: The patient denies a history of epilepsy/convulsions, denies headaches, denies head/spinal injuries, and denies stroke/TIA. Psychiatric: The patient denies psychiatric medications, denies depression, and denies voices, denies substance abuse. Endocrine: The patient denies thyroid disorders, denies diabetes, and denies hormonal problems. Hematologic: The patient denies a history of bruising, denies bleeding, and denies anemia, denies blood clots. Infections: The patient denies a history of measles and mumps, denies rheumatic fever, and denies sexually transmitted diseases. Musculoskeletal: The patient denies back pain/injury, denies back problems, denies sciatica, deniesknee/foot trouble, denies arthritis, or denies gout. When was patient's last Mammogram screening? N/A Last Colonoscopy: 07/10/2020 Francisca Spann RN PHYSICAL EXAMINATION: General: The patient is 73 year old, male well nourished, well hydrated in no acute distress. The patient is oriented to time, place, and person. VITALS: Blood pressure 138/82, pulse 80, temperature 36.6 C (97.8 F), height 182.9 cm (6'), weight 90.9 kg (200 lb 6.4 oz), SpO2 92%. Body mass index is 27.18 kg/m . HEENT: Normal cephalic, ataumatic, pupils are equally round, sclera are anicteric, mucous membranesare moist, oropharynx is clear. Neck has no masses, asymmetry or lymphadenopathy. Respiratory: Clear to auscultation and percussion. Normal respiratory excursion and pattern. Cardiac: Examination is regular rate and rhythm. Normal S1/S2 Abdominal exam: Soft, nontender, with no palpable masses. No hepatosplenomegaly. No palpable hernias. Extremities: no clubbing, cyanosis or edema. No adenopathy. LABORATORY VALUES: As Noted RADIOLOGIC STUDIES: As Noted Assessment IMPRESSION: screen for colon cancer, history of polyps PLAN: I have reviewed my findings with the surgeon. Will plan for lower endoscopy. We discussed therisks and benefits of the planned endoscopy. I have informed the patient that complications can occur including failure to complete the endoscopy and perforation. Maria E had the opportunity to ask questions concerning the planned endoscopy. My staff has also explained the procedure to the patient inunderstandable terms and has given the patient printed material concerning the procedure. Maria E freely consents to surgery. I plan to use Goyltely bowel preparation Patient instructed to contact PCP for instructions regarding diabetic medication, which may requireadjustment during bowel preparation and/or day of procedure. I have explained to the patient the difference between IV conscious sedation and MAC anesthesia - and I have offered either, according to the patient's wishes. I have explained that with IV conscioussedation there is no anesthesia provider available and therefore there is a limitation of the amount of IV medications that can be given and that the patient may wake up in the middle of the procedure and/or experience pain/discomfort during the procedure. Further discussion was done and the patient was given the opportunity to ask questions and all questions were answered. Maria E chooses IV conscious sedation. Maria E was counseled that if there are changes in his/her medical condition, to let the office know if surgery should proceed. If there are changes in patient's medical condition from time of this encounter to the day of the procedure that preclude anesthesia, patient may have procedure cancelled for patient's safety. Diagnoses: (Z86.0100) History of colonic polyps (primary encounter diagnosis) (Z12.11) Screen for colon cancer Portions of this documentation were copied and pasted from previous office visit notes in order to provide a cohesive continuity of the history. The note has been reviewed and edited and updated as necessary. Maddie Bernstein APRN.CNP UPDATED HISTORY AND PHYSICAL EXAMINATION SERVICE DATE: 02/19/2024 SERVICE TIME: 10:53 AM SENSITIVE EXAMINATION CONSENT: The sensitive examination was discussed with the Patient or Patient's Authorized Research And Evaluation Manager. Asapplicable, any other physician, advance practice provider, medical student, or other health professional student that will be observing or involved in the sensitive examination for educational or training purposes was discussed with the Patient or Authorized Research And Evaluation Manager. The Patient or Authorized Research And Evaluation Manager has agreed to proceed with the sensitive examination. (Sensitive examination includes inspection and/or palpation of the breasts, pelvis, prostate and anorectal regions) PHYSICAL EXAM MUST BE COMPLETED ON ADMISSION The History and Physical (completed in the past 30 days) has been reviewed and the patient has beenexamined. The contents accurately reflect the patient's condition with the following additions or revisions since the H&P was completed. Examination indicates no changes. This H&P can be found in the attached. SIGNATURE: Demetri Lord III, MD PATIENT NAME: Maria E Guthrie DATE: February 19, 2024 TIME: 10:53 AM [facility] Telephone encounter Note * Telephone Encounter - Melanie Marcelino - 02/16/2024 2:34 PM EDT 02-19-2024 Colonoscopy concepc[facility] prep, nurse went over instructions yudy has direct number to contact for any questions or concerns., Instructed patient to arrive at 1045 in [facility]11-01[facility] Miscellaneous Notes* Telephone Encounter - Melanie Marcelino - 02/16/2024 2:34 PM EDT 02-19-2024 Colonoscopy concepción [facility] prep, nurse went over instructions yudy has direct number to contact for any questions or concerns., Instructed patient to arrive at 1045 in ASC documented in [facility] Nurse Note* Francisca Spann, RN - 02/16/2024 2:00 PM EDT REVIEW OF SYSTEMS: General: The patient denies fatigue, denies weight loss, denies weight gain, denies feeling hot, and denies feelings of cold. Eyes: The patient denies glaucoma, denies eye injury/surgery, wears glasses or contacts. Ear/Nose/Throat: The patient NOTES allergies, denies hayfever, denies ear infections, and denies bloody noses. Cardiovascular: The patient denies chest pain, NOTES heart disease, NOTES high blood pressure,NOTEScardiac stent, NOTES prior heart attack, denies irregular heart beat, NOTES high cholesterol, denies poor circulation, denies heart failure, other cardiac issues, denies claudication, denies cold feet, denies peripheral arterial stent. Respiratory: The patient denies tuberculosis, denies pneumonia, denies frequent cough, denies pulmonary embolism, denies shortness of breath, and denies coughing up blood. Gastrointestinal: The patient denies difficulty swallowing, denies acid reflux, denies ulcers, denies vomiting, denies jaundice/hepatitis, denies gallbladder problems, denies black or tarry stools, denies hemorrhoids, denies bleeding from rectum, denies diverticulitis, denies constipation, denies diarrhea, denies loss of stool control, and denies hernias. Kidney/Bladder: The patient denies kidney stones, denies urine infections, and denies bloody urine. Skin: The patient denies a history of skin cancer, denies bleeding/changing moles, and denies a history of skin rash. Neurologic: The patient denies a history of epilepsy/convulsions, denies headaches, denies head/spinal injuries, and denies stroke/TIA. Psychiatric: The patient denies psychiatric medications, denies depression, and denies voices, denies substance abuse. Endocrine: The patient denies thyroid disorders, denies diabetes, and denies hormonal problems. Hematologic: The patient denies a history of bruising, denies bleeding, and denies anemia, denies blood clots. Infections: The patient denies a history of measles and mumps, denies rheumatic fever, and denies sexually transmitted diseases. Musculoskeletal: The patient denies back pain/injury, denies back problems, denies sciatica, deniesknee/foot trouble, denies arthritis, or denies gout. When was patient's last Mammogram screening? N/A Last Colonoscopy: 07/10/2020 Francisca Spann RN [facility] History of Present illness Narrative* Maddie Bernstein APRN.RELIGIOUS EDUCATOR - 02/16/2024 2:00 PM EDT HISTORY AND PHYSICAL Maria E Guthrie : 1950 REFERRING PHYSICIAN: No referring provider defined for this encounter. CHIEF COMPLAINT: Patient presents with: Consult: colonoscopy HPI: Maria E is a 73 year old male referred for endoscopy. Maria E notes due for screening colonoscopy-hx of polyps (2020). Maria E denies abdominal pain.. Maria E denies diarrhea. Maria E denies constipation. Maria E denies a change in bowel habits. Maria E denies melena. Maria E denies bright red blood per rectum. Maria E denies hemorrhoids. Maria E denies heartburn. Maria E denies dysphagia. Maria E denies a history of ulcers/ peptic ulcer disease. Medica history is significant for HLD, HTN, CAD with stent x 1 (2006), gout and BPH. Denies CP, SOB, dizziness, palpitations, syncope, edema, recent hospitalizations Maria E denies family history of colon issues. Maria E has undergone prior endoscopy. Last colonoscopy 06/[address] Park at [facility]. Sedation:Midazolam 5 mg IV, Fentanyl 100 micrograms IV Impression: - Three small polyps in the proximal transverse colon, in the distal transverse colon and in the cecum, removed with a cold snare. Resected and retrieved. - Diverticulosis in the entire examined colon. - The examination was otherwise normal on direct and retroflexion views. CONVERTED FINAL DIAGNOSIS 1. Colon, cecum, polyp, biopsy (A) Tubular adenoma. 2. Colon, transverse, polyp, biopsy (B) Tubular adenoma. 3. Colon, distal transverse, polyp, biopsy (C) Tubular adenoma. Current Outpatient Medications Medication Sig alirocumab (PRALUENT) 150 mg/mL pen Inject 150 mg subcutaneously. losartan (COZAAR) 100 mg tablet Take 100 mg by mouth. fluticasone (FLONASE) 50 mcg/actuation nasal spray Use 1 [place] in the nose once daily. cyanocobalamin (VITAMIN B-12) 500 mcg tablet Take 1 tablet by mouth once daily. clotrimazole (LOTRIMIN) 1 % cream Apply to affected area. allopurinol (ZYLOPRIM) 100 mg tablet Take 400 mg by mouth once daily. METFORMIN HCL (METFORMIN ORAL) Take by mouth. metoprolol tartrate, short acting, (LOPRESSOR) 25 mg tablet Take 1 tablet by mouth twice daily. Aspirin 81 mg Tab Take 1 tablet by mouth once daily. Take with food. ezetimibe (ZETIA) 10 mg ORAL tablet Take one(1) tablet daily. peg 3350-Electrolytes (GOLYTELY) 236-22.74-6.74 -5.86 gram suspension Take 4,000 mL by mouth one time only for 1 dose. Refer to printed prep instructions from your provider. No current facility-administered medications for this visit. ALLERGIES: Zocor [Simvastatin] PAST MEDICAL HISTORY Diagnosis Date Acute myocardial infarction of other specified sites, episode of care unspecified 2006 Myocardial Infarction, had angioplasty Coronary artery disease Diabetes (HCC) Gout Mixed hyperlipidemia Hyperlipidemia Unspecified essential hypertension Essential hypertension PAST SURGICAL HISTORY Procedure Laterality Date ARTHROSCOPY KNEE DIAGNOSTIC W/WO SYNOVIAL BX SPX Arthroscopy, knee X2 COLONOSCOPY SCRN NOT HIGH RISK 06/30/2020 CORONARY ENDARTERCOMY OPEN ANY METHOD 08/2006 Angioplasty, 1 DRUG ELUTING stent JOINT REPLACEMENT HX PAST SURGICAL HISTORY OF 04/2009 Right rotator cuff repair surgery PAST SURGICAL HISTORY OF 2010 L rotator cuff TOTAL KNEE REPLACEMENT Bilateral 03/20/2019 VASCULAR SURGERY PROCEDURE FAMILY HISTORY Problem Relation Age of Onset Cancer Mother Bone COPD Father Coronary Artery Disease Brother Social History Tobacco Use Smoking status: Never Smokeless tobacco: Never Vaping Use Vaping status: Never Used Substance Use Topics Alcohol use: No Drug use: No REVIEW OF SYMPTOMS: The review of systems data was entered by the nurse and reviewed by wi Nursing Notes: Francisca Spann RN 02/16/2024 2:03 PM Signed REVIEW OF SYSTEMS: General: The patient denies fatigue, denies weight loss, denies weight gain, denies feeling hot, and denies feelings of cold. Eyes: The patient denies glaucoma, denies eye injury/surgery, wears glasses or contacts. Ear/Nose/Throat: The patient NOTES allergies, denies hayfever, denies ear infections, and denies bloody noses. Cardiovascular: The patient denies chest pain, NOTES heart disease, NOTES high blood pressure,NOTEScardiac stent, NOTES prior heart attack, denies irregular heart beat, NOTES high cholesterol, denies poor circulation, denies heart failure, other cardiac issues, denies claudication, denies cold feet, denies peripheral arterial stent. Respiratory: The patient denies tuberculosis, denies pneumonia, denies frequent cough, denies pulmonary embolism, denies shortness of breath, and denies coughing up blood. Gastrointestinal: The patient denies difficulty swallowing, denies acid reflux, denies ulcers, denies vomiting, denies jaundice/hepatitis, denies gallbladder problems, denies black or tarry stools, denies hemorrhoids, denies bleeding from rectum, denies diverticulitis, denies constipation, denies diarrhea, denies loss of stool control, and denies hernias. Kidney/Bladder: The patient denies kidney stones, denies urine infections, and denies bloody urine. Skin: The patient denies a history of skin cancer, denies bleeding/changing moles, and denies a history of skin rash. Neurologic: The patient denies a history of epilepsy/convulsions, denies headaches, denies head/spinal injuries, and denies stroke/TIA. Psychiatric: The patient denies psychiatric medications, denies depression, and denies voices, denies substance abuse. Endocrine: The patient denies thyroid disorders, denies diabetes, and denies hormonal problems. Hematologic: The patient denies a history of bruising, denies bleeding, and denies anemia, denies blood clots. Infections: The patient denies a history of measles and mumps, denies rheumatic fever, and denies sexually transmitted diseases. Musculoskeletal: The patient denies back pain/injury, denies back problems, denies sciatica, deniesknee/foot trouble, denies arthritis, or denies gout. When was patient's last Mammogram screening? N/A Last Colonoscopy: 07/10/2020 Francisca Spann RN PHYSICAL EXAMINATION: General: The patient is 73 year old, male well nourished, well hydrated in no acute distress. The patient is oriented to time, place, and person. VITALS: Blood pressure 138/82, pulse 80, temperature 36.6 C (97.8 F), height 182.9 cm (6'), weight 90.9 kg (200 lb 6.4 oz), SpO2 92%. Body mass index is 27.18 kg/m . HEENT: Normal cephalic, ataumatic, pupils are equally round, sclera are anicteric, mucous membranesare moist, oropharynx is clear. Neck has no masses, asymmetry or lymphadenopathy. Respiratory: Clear to auscultation and percussion. Normal respiratory excursion and pattern. Cardiac: Examination is regular rate and rhythm. Normal S1/S2 Abdominal exam: Soft, nontender, with no palpable masses. No hepatosplenomegaly. No palpable hernias. Extremities: no clubbing, cyanosis or edema. No adenopathy. LABORATORY VALUES: As Noted RADIOLOGIC STUDIES: As Noted Assessment IMPRESSION: screen for colon cancer, history of polyps PLAN: I have reviewed my findings with the surgeon. Will plan for lower endoscopy. We discussed therisks and benefits of the planned endoscopy. I have informed the patient that complications can occur including failure to complete the endoscopy and perforation. Maria E had the opportunity to ask questions concerning the planned endoscopy. My staff has also explained the procedure to the patient inunderstandable terms and has given the patient printed material concerning the procedure. Maria E freely consents to surgery. I plan to use Goy[place]ely bowel preparation Patient instructed to contact PCP for instructions regarding diabetic medication, which may requireadjustment during bowel preparation and/or day of procedure. I have explained to the patient the difference between IV conscious sedation and MAC anesthesia - and I have offered either, according to the patient's wishes. I have explained that with IV conscioussedation there is no anesthesia provider available and therefore there is a limitation of the amount of IV medications that can be given and that the patient may wake up in the middle of the procedure and/or experience pain/discomfort during the procedure. Further discussion was done and the patient was given the opportunity to ask questions and all questions were answered. Maria E chooses IV conscious sedation. Maria E was counseled that if there are changes in his/her medical condition, to let the office know if surgery should proceed. If there are changes in patient's medical condition from time of this encounter to the day of the procedure that preclude anesthesia, patient may have procedure cancelled for patient's safety. Diagnoses: (Z86.0100) History of colonic polyps (primary encounter diagnosis) (Z12.11) Screen for colon cancer Portions of this documentation were copied and pasted from previous office visit notes in order to provide a cohesive continuity of the history. The note has been reviewed and edited and updated as necessary. Maddie Bernstein APRN.BALJIT documented in this [facility] NoteHNO ID: [id number] Author: MADDIE BERNSTEIN APRN.CNP Service: ? Author Type: Nurse Practitioner Type: Progress Notes Filed: 02/16/2024 14:24 Note Text: HISTORY AND PHYSICAL Maria E Guthrie : 1950 REFERRING PHYSICIAN: No referring provider defined for this encounter. CHIEF COMPLAINT: Patient presents with: Consult: colonoscopy HPI: Maria E is a 73 year old male referred for endoscopy. Maria E notes due for screening colonoscopy- hx of polyps (2020). Maria E denies abdominal pain.. Maria E denies diarrhea. Maria E denies constipation. Maria E denies a change in bowel habits. Maria E denies melena. Maria E denies bright red blood per rectum. Maria E denies hemorrhoids. Maria E denies heartburn. Maria E denies dysphagia. Maria E denies a history of ulcers/ peptic ulcer disease. Medica history is significant for HLD, HTN, CAD with stent x 1 (2006), gout and BPH. Denies CP, SOB, dizziness, palpitations, syncope, edema, recent hospitalizations Maria E denies family history of colon issues. Maria E has undergone prior endoscopy. Last colonoscopy 06/[address] Park at [facility]. Sedation:Midazolam 5 mg IV, Fentanyl 100 micrograms IV Impression: - Three small polyps in the proximal transverse colon, in the distal transverse colon and in the cecum, removed with a cold snare. Resected and retrieved. - Diverticulosis in the entire examined colon. - The examination was otherwise normal on direct and retroflexion views. CONVERTED FINAL DIAGNOSIS 1. Colon, cecum, polyp, biopsy (A) Tubular adenoma. 2. Colon, transverse, polyp, biopsy (B) Tubular adenoma. 3. Colon, distal transverse, polyp, biopsy (C) Tubular adenoma. Current Outpatient Medications Medication Sig alirocumab (PRALUENT) 150 mg/mL pen Inject 150 mg subcutaneously. losartan (COZAAR) 100 mg tablet Take 100 mg by mouth. fluticasone (FLONASE) 50 mcg/actuation nasal spray Use 1 [place] in the nose once daily. cyanocobalamin (VITAMIN B-12) 500 mcg tablet Take 1 tablet by mouth once daily. clotrimazole (LOTRIMIN) 1 % cream Apply to affected area. allopurinol (ZYLOPRIM) 100 mg tablet Take 400 mg by mouth once daily. METFORMIN HCL (METFORMIN ORAL) Take by mouth. metoprolol tartrate, short acting, (LOPRESSOR) 25 mg tablet Take 1 tablet by mouth twice daily. Aspirin 81 mg Tab Take 1 tablet by mouth once daily. Take with food. ezetimibe (ZETIA) 10 mg ORAL tablet Take one(1) tablet daily. peg 3350-Electrolytes (GOLYTELY) 236-22.74-6.74 -5.86 gram suspension Take 4,000 mL by mouth one time only for 1 dose. Refer to printed prep instructions from your provider. No current facility-administered medications for this visit. ALLERGIES: Zocor [Simvastatin] PAST MEDICAL HISTORY Diagnosis Date Acute myocardial infarction of other specified sites, episode of care unspecified 2006 Myocardial Infarction, had angioplasty Coronary artery disease Diabetes (HCC) Gout Mixed hyperlipidemia Hyperlipidemia Unspecified essential hypertension Essential hypertension PAST SURGICAL HISTORY Procedure Laterality Date ARTHROSCOPY KNEE DIAGNOSTIC W/WO SYNOVIAL BX SPX Arthroscopy, knee X2 COLONOSCOPY SCRN NOT HIGH RISK 06/30/2020 CORONARY ENDARTERCOMY OPEN ANY METHOD 08/2006 Angioplasty, 1 DRUG ELUTING stent JOINT REPLACEMENT HX PAST SURGICAL HISTORY OF 04/2009 Right rotator cuff repair surgery PAST SURGICAL HISTORY OF 2010 L rotator cuff TOTAL KNEE REPLACEMENT Bilateral 03/20/2019 VASCULAR SURGERY PROCEDURE FAMILY HISTORY Problem Relation Age of Onset Cancer Mother Bone COPD Father Coronary Artery Disease Brother Social History Tobacco Use Smoking status: Never Smokeless tobacco: Never Vaping Use Vaping status: Never Used Substance Use Topics Alcohol use: No Drug use: No REVIEW OF SYMPTOMS: The review of systems data was entered by the nurse and reviewed by wi Nursing Notes: Francisca Spann RN 02/16/2024 2:03 PM Signed REVIEW OF SYSTEMS: General: The patient denies fatigue, denies weight loss, denies weight gain, denies feeling hot, and denies feelings of cold. Eyes: The patient denies glaucoma, denies eye injury/surgery, wears glasses or contacts. Ear/Nose/Throat: The patient NOTES allergies, denies hayfever, denies ear infections, and denies bloody noses. Cardiovascular: The patient denies chest pain, NOTES heart disease, NOTES high blood pressure,NOTES cardiac stent, NOTES prior heart attack, denies irregular heart beat, NOTES high cholesterol, denies poor circulation, denies heart failure, other cardiac issues, denies claudication, denies cold feet, denies peripheral arterial stent. Respiratory: The patient denies tuberculosis, denies pneumonia, denies frequent cough, denies pulmonary embolism, denies shortness of breath, and denies coughing up blood. Gastrointestinal: The patient denies difficulty swallowing, denies acid reflux, denies ulcers, denies vomiting, (more content not included)...[facility]11-01-2024 Nurse Note* Francisca Spann RN - 02/16/2024 2:00 PM EDT REVIEW OF SYSTEMS: General: The patient denies fatigue, denies weight loss, denies weight gain, denies feeling hot, and denies feelings of cold. Eyes: The patient denies glaucoma, denies eye injury/surgery, wears glasses or contacts. Ear/Nose/Throat: The patient NOTES allergies, denies hayfever, denies ear infections, and denies bloody noses. Cardiovascular: The patient denies chest pain, NOTES heart disease, NOTES high blood pressure,NOTEScardiac stent, NOTES prior heart attack, denies irregular heart beat, NOTES high cholesterol, denies poor circulation, denies heart failure, other cardiac issues, denies claudication, denies cold feet, denies peripheral arterial stent. Respiratory: The patient denies tuberculosis, denies pneumonia, denies frequent cough, denies pulmonary embolism, denies shortness of breath, and denies coughing up blood. Gastrointestinal: The patient denies difficulty swallowing, denies acid reflux, denies ulcers, denies vomiting, denies jaundice/hepatitis, denies gallbladder problems, denies black or tarry stools, denies hemorrhoids, denies bleeding from rectum, denies diverticulitis, denies constipation, denies diarrhea, denies loss of stool control, and denies hernias. Kidney/Bladder: The patient denies kidney stones, denies urine infections, and denies bloody urine. Skin: The patient denies a history of skin cancer, denies bleeding/changing moles, and denies a history of skin rash. Neurologic: The patient denies a history of epilepsy/convulsions, denies headaches, denies head/spinal injuries, and denies stroke/TIA. Psychiatric: The patient denies psychiatric medications, denies depression, and denies voices, denies substance abuse. Endocrine: The patient denies thyroid disorders, denies diabetes, and denies hormonal problems. Hematologic: The patient denies a history of bruising, denies bleeding, and denies anemia, denies blood clots. Infections: The patient denies a history of measles and mumps, denies rheumatic fever, and denies sexually transmitted diseases. Musculoskeletal: The patient denies back pain/injury, denies back problems, denies sciatica, deniesknee/foot trouble, denies arthritis, or denies gout. When was patient's last Mammogram screening? N/A Last Colonoscopy: 07/10/2020 Francisca Spann RN documented in this encounterW[facility] Discharge summary Author Joe Joshua [facility] August 18, 2023 12:45am Note Date/Time August 17, 2023 9:52pm [facility] Medical Records Department [address] [place] [address] Emergency Department Summary 08/17/23 MR#: [id number] Acct: [id number] Name: MARIA E GUTHRIE Rep #:[id number] : 1950 73 From: Joe Sage PCP: Dr. Matt Saul MD Status :REG ER Location: ED HPI History of Present Illness Chief Complaint: Chest Pain Informant: patient Narrative Narrative: Intermittent chest pain initially started overnight twinges in his left chest. This evening it returned having intermittent symptoms. He had 1 stent placed [id number]. Diabetes hypertension hyperlipidemia. No cardiac dysrhythmia history. On baby aspirin. No cough. He had traveled yesterday 8-hour drive and return. Noticed leg swelling no leg cramping no dyspnea. Prior Similar Symptoms: No CVD Risk Factors: Positive for Hypertension, Diabetes and Hypercholesterolemia PE Risk Factors: Positive for Recent [facility] Medical History (Updated 08/18/23 @ 00:[address] 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 Osteoarthritis PTSD (post-traumatic stress disorder) Type 2 diabetes mellitus without complications Home Medications aspirin 81 mg tablet,delayed release 81 mg PO DAILY@0800 06/09/13 [History Last Taken 06/08/13] metoprolol tartrate 25 mg tablet 12.5 mg PO BID 05/10/17 [History Last Taken Unknown] metformin 500 mg tablet 500 mg PO BID 05/11/17 [History Last Taken Unknown] ezetimibe 10 mg tablet 10 mg PO DAILY #180 tabs 10/02/17 [Rx Last Taken Unknown] cholecalciferol (vitamin D3) 25 mcg (1,000 unit) tablet 4,000 unit PO DAILY 01/21/20 [History Last Taken Unknown] cyanocobalamin (vitamin B-12) 1,000 mcg capsule 500 mcg PO DAILY 01/21/20 [History Last Taken Unknown] alirocumab 75 mg/mL subcutaneous pen injector (Praluent Pen) 150 mg subcut Q2W 03/26/21 [History Last Taken Unknown] losartan 100 mg tablet 100 mg PO DAILY 02/08/22 [History Last Taken Unknown] omega 4-svc-qxo-fish oil 300 mg-1,000 mg capsule (Fish Oil) 2 cap PO BID 02/08/22 [History Last Taken Unknown] allopurinol 300 mg tablet 300 mg PO DAILY 02/08/23 [History Last Taken Unknown] hydrochlorothiazide 25 mg tablet 25 mg PO DAILY 02/08/23 [History Last Taken Unknown] Allergy/AdvReac Type Severity Reaction Status Date / Time [id number] Reductase AdvReac Mild myalgias Verified 08/17/23 21:04 Inhibitor [Vghmbti-Ovi-Bvn Reductase Inhibitor] Family History Brother CAD (coronary artery disease) Hx of CABG Surgical History (Updated 08/18/23 @ 00:[address] Joe Joshua DO) History of coronary artery stent placement (08/17/06) History of left knee replacement (03/20/19) History of left knee surgery History of repair of rotator cuff History of right knee surgery Social History Smoking Status: Never smoker alcohol intake: never substance use type: does not use caffeine: Yes Type: carbonated beverages Number of servings: 1 ROS ROS ED Constitutional Constitutional ED: Denies chills, fever(s) or sweats Eyes Eyes: Denies change in vision ENT ENT ED: Denies dysphagia or sore throat Cardiovascular Cardiovascular: Reports chest pain; Denies leg edema, palpitations or racing heartbeat Respiratory/Chest Respiratory/Chest: Denies cough, dyspnea or dyspnea on exertion Gastrointestinal Gastrointestinal: Denies abdominal pain, diarrhea, nausea or vomiting Genitourinary Genitourinary ED: Denies dysuria, hematuria or urinary frequency Musculoskeletal Musculoskeletal: Denies back pain, extremity pain or neck pain Integumentary Denies rash or wounds Neurologic Neurologic: Denies headache(s), paresthesias or weakness EXAM Physical Exam Const Vital Signs: 08/17/23 21:03 08/17/23 21:53 08/17/23 21:57 Temperature 97.8 F Temperature Source Temporal Pulse Rate 68 Respiratory Rate 16 Respiratory Effort Normal Blood Pressure 156/92 H Blood Pressure Mean 113 Pulse Ox 99 95 Oxygen Delivery Method Room Air Room Air 08/17/23 22:02 08/17/23 23:00 08/18/23 00:00 Temperature Temperature Source Pulse Rate 60 62 59 L Respiratory Rate 22 H 118 H 22 H Respiratory Effort Blood Pressure 156/92 H 138/77 H 145/88 H Blood Pressure Mean 113 97 107 Pulse Ox 95 95 95 Oxygen Delivery Method Room Air Room Air Room Air Positive well nourished and well developed General Appearance ED: well developed and NAD HEENT Reports moist mucous membranes normocephalic and atraumatic Eyes PERRL, EOMs intact bilaterally and conjunctivae normal General Eye ED: Yes normal appearance of both eyes Neck no lymphadenopathy and supple General: Negative for tenderness Chest Wall Chest: Negative for tenderness Resp normal respiratory effort and normal air movement Effort and Inspection: symmetric chest movement; Negative for respiratory distress Cardio regular rate, regular rhythm and no murmurs Peripheral Pulses: pulses 2+ throughout GI normal to inspection, nondistended, normoactive bowel sounds and non-tender Palpation: Negative for guarding or rebound tenderness present Back/Spine no CVA tenderness and no thoracic nor lumbar tenderness Extremity normal to inspection General Extremety ED: Negative for edema or tenderness General Extremity: Negative for edema Neuro oriented x3 and no sensory deficits noted Sensorium / Orientation: awake and alert Skin no rashes or lesions noted and no wounds Heart Score History: Slightly/Non-Suspicious ECG: Normal Age: >/= 65 years Risk Factors: >/= 3 Risk Factors or History of CAD Troponin: </= Normal Limit Score: 4 MDM MDM MDM Narrative Medical decision making narrative: Interventions / MDM: Differential diagnosis: Atypical chest pain, palpitations. Diagnosis considered but do not suspect: ACS however EKG and troponins were negative. Pulmonary embolism with low risk Wells criteria with a negative D-dimer. Pneumothorax with a negative chest x-ray normal breath sounds. My EKG interpretation: Sinus rate 67, no ST changes, T wave version on 3 flattening in aVF. First-degree AV block. Similar findings from 2015. Imaging independently reviewed and interpreted by myself: 2 view chest x-ray atelectasis left lower lobe. No infiltrates. No pneumothorax. External documents reviewed: N/A Test considered but not ordered:N/A ED course: Patient presented intermittent twinges left chest. He would have it in the room however on the career discovery teacher did not know any rhythm changes. Cardiac workup initiated will place a D-dimer due to his recent travel yesterday. 2330 : Troponin negative D-dimer negative. Basic labs are stable no potassium 3.1. He remains symptom-free at this time. Will replace potassium. Will awaitdelta troponin. Two-view chest x-ray ordered. 0000: Potassium 3.1 oral replacement given. Remains symptom-free. Chest x-ray with atelectasis. Will await 2-hour troponin prior to disposition. If negativewill be discharged with outpatient follow-up. 0044: Repeat troponin again negative less than his initial evaluation. Remains symptom-free. He will be discharged outpatient follow-up with strict return precautions. All questions were answered. Re-evaluation: stable Disposition discussed with patient/family/significant other: Patient and significant other Case discussed with consulting clinician: N/A This note was generated with Growish dictation software. It may contain incorrectwords, spelling, and punctuation that were not noted in checking the note beforesigning. Lab Data Attestation: I reviewed the patient's lab results. Labs: Laboratory Results - last 24 hr 08/17/23 08/18/23 22:05 00:13 WBC 4.1 L RBC 5.22 Hgb 15.4 Hct 45.4 MCV 87.0 MCH 29.5 MCHC 33.9 RDW Std Deviation 40.8 RDW Coeff of Destiny 13.0 Plt Count 147 L MPV 10.7 Immature Gran % (Auto) 0.000 Neut % (Auto) 38.9 L Lymph % (Auto) 49.8 H Alfalfa % (Auto) 10.1 H Eos % (Auto) 0.7 Baso % (Auto) 0.5 Absolute Neuts (auto) 1.6 L Absolute Lymphs (auto) 2.02 Nucleated RBC % 0 D-Dimer Quant (PE/DVT) 0.44 Sodium 135 L Potassium 3.1 L Chloride 101 Carbon Dioxide 29.0 Anion Gap 5 BUN 18 Creatinine 0.97 Estim Creat Clear Calc 72.22 Est GFR (MDRD) Af Amer 97 Est GFR (MDRD) Non-Af 80 BUN/Creatinine Ratio 18.5 Glucose 195 H Calcium 9.4 Troponin I High Sens 12 9 Discharge Plan Triage Chief Complaint: Chest Pain ED Provider: Joe Joshua Dx/Rx/DC Orders Clinical Impression: Palpitations, History of coronary artery stent placement, Chest pain, Hypokalemia Instructions: ED Chest Pain, Uncertain Cause, ED Palpitations Prescriptions: No Action metformin 500 mg tablet 500 mg PO BID metoprolol tartrate 25 mg tablet 12.5 mg PO BID cholecalciferol (vitamin D3) 25 mcg (1,000 unit) tablet 4,000 unit PO DAILY cyanocobalamin (vitamin B-12) 1,000 mcg capsule 500 mcg PO DAILY losartan 100 mg tablet 100 mg PO DAILY omega 4-cnu-pkt-fish oil [Fish Oil] 300-1,000 mg capsule 2 cap PO BID hydrochlorothiazide 25 mg tablet 25 mg PO DAILY allopurinol 300 mg tablet 300 mg PO DAILY aspirin 81 MG tablet 81 mg PO DAILY@0800 ezetimibe 10 mg tablet 10 mg PO DAILY Qty: 180 3RF Praluent Pen 75 mg/mL pen injector 150 mg subcut Q2W Rx Instructions: inject into abdomen, thigh, or upper arm (deltoid muscle); rotate sites [place] gets from the [place] Primary Care Provider: Matt Saul Referrals: Matt Saul MD [Primary Care Provider] - 3-5 Days Activity Restrictions/Additional Instructions: Cardiac workup was negative. Potassium 3.1 orally replaced. Follow-up with your doctor. If symptoms recur and worsens, return to the ED for reevaluation. What to do if you have Problems For any increased pain, shortness of breath, bleeding, nausea or vomiting, chestpain, or any unexpected problems, contact your Primary Care Provider. Call [facility] ([phone]) or report to the closest Emergency Room. Call 911 if necessary. 08/18/23 0045 <Electronically signed by Joe Sage> Cosigner Signature (if applicable): CC: Dr. Matt Saul MD ~ Signed [facility] Work Phone: [phone] Evaluation note* Diagnosis Onset Date Resolution Status Essential hypertension chron ic History of coronary artery stent placement August 17 chronic Hyperlipidemia chronic [facility] Work Phone: Evaluation note* Diagnosis Onset Date Resolution Status Influenza due to influenza virus, type A, human acute [facility] Work Phone: Evaluation note* Diagnosis History of colonic polyps- Primary Personal history of colonic polyps Screen for colon cancer Special screening for malignant neoplasms, colon [facility] [place] [facility] Diagnosis History of colonic polyps Personal history of colonic polyps Screen for colon cancer Special screening for malignant neoplasms, colon documented [facility] [place] [facility]* Diagnosis History of colonic polyps- Primary Personal history of colonic polyps documented in this encounter [facility] noteNo assessment information availableWooC[facility] Work Phone: Hospital Discharge instructions Additional Instructions Cardiac workup was negative. Potassium 3.1 orally replaced. Follow-up with your doctor. If symptoms recur and worsens, return to the ED for reevaluation.[facility] Work Phone: Hospital Discharge instructionsAdditional Instructions [facility]: [facility] Reason for referral (narrative)* Outpatient Procedure (Routine) - Authorized Specialty Diagnoses / Procedures Referred By Shauna ross Referred To Contact [facility] Diagnoses History of colonic polyps Screen for colon cancer Procedures COLONOSCOPY SCREENING COLONOSCOPY FLX DX W/COLLJ SPEC WHEN Maddie Lozada APRN.CNP [address] [place] [address] [facility] [address] [address] Referral ID Status Reason Start Date Expiration Date Visits Requested Visits Authorized [id number] Authorized Auto-Generat ed Referral 02/16/2024 02/15/2025 1 1 [facility] for referral (narrative)* Outpatient Procedure (Routine) - Closed Specialty Diagnoses / Procedures Referred By Shauna ross Referred To Contact [facility] [place] Diagnoses History of colonic polyps Screen for colon cancer Procedures COLONOSCOPY SCREENING COLONOSCOPY FLX DX W/COLLJ SPEC WHEN Maddie Lozada APRN.CNP [address] [address] [facility] [place] [id number] Referral ID Status Reason Start Date Expiration Date V isits Requested Visits Authorized [id number] Closed Auto-Generate d Referral 02/16/2024 02/15/2025 1 1 [facility] for referral (narrative)No reason for referral information availableWDay[facility] Work Phone: Reason for visit Narrative* Outpatient Procedure (Routine) - Closed Specialty Diagnoses / Procedures Referred By Shauna ross Referred To Contact [facility] Diagnoses History of colonic polyps Screen for colon cancer Procedures COLONOSCOPY SCREENING COLONOSCOPY FLX DX W/COLLJ SPEC WHEN Maddie Lozada, JENNIFER.RELIGIOUS EDUCATOR [address] [place] [address] [facility] [place] [address] Referral ID Status Reason Start Date Expiration Date V isits Requested Visits Authorized [id number] Closed Auto-Generate d Referral 02/16/2024 02/15/2025 1 1 [facility] Chief Complaint and Reason for Visit Chief Complaint 1 Y FU Blood Flow Screening - Steve ABNORMAL BLOOD FLOW SCREENING Amb Documentation Reason for Visit Essential hypertensi on History of coronary artery stent placement Hyperlipidemia Chief Complaint 1 Y FU Presence of coronary angioplasty implant and graft Presence of coronary angioplasty implant and graft Amb Documentation Reason for Visit Essential hypertensi on History of coronary artery stent placement Hyperlipidemia Chief Complaint SORE THROAT/CONGESTI ON/SINUS COMPLAINTS CHEST PAIN Reason for Visit Influenza due to inf luenza virus, type A, human Chief Complaint Admit Date 1 Y FU April 04, 2024 2:13pm RIGHT ANKLE AND FOOT June 18, 2024 8:4 6am Reason for Visit Admit Date Essential hypertension April 04 2:13pm History of coronary artery stent placeme nt April 04, 2024 2:13pm Hyperlipidemia April 04, 2024 2:13pm Chief Complaint Admit Date BLUE PRINT PROTOCOL November 26, 2024 4: 31pm Chief Complaint Admit Date BLUE PRINT PROTOCOL November 26, 2024 4: 31pm PREOP November 27, 2024 6: 54am ERAS, RIGHT REVERSE TOTAL SHOULDER ARTHR OPLASTY December 23, 2024 1:06pm ERAS, RIGHT REVERSE TOTAL SHOULDER ARTHR OPLASTY December 23, 2024 4:08pm ERAS, RIGHT REVERSE TOTAL SHOULDER ARTHR OPLASTY December 24, 2024 9:14am Reason for Visit Admit Date Right rotator cuff tear arthropathy Sept 2024 1:06pm 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 December 23, 2024 1:06pm Chief Complaint Admit Date BLUE PRINT PROTOCOL November 26, 2024 4: 31pm PREOP November 27, 2024 6: 54am ERAS, RIGHT REVERSE TOTAL SHOULDER ARTHR OPLASTY December 23, 2024 1:06pm ERAS, RIGHT REVERSE TOTAL SHOULDER ARTHR OPLASTY December 23, 2024 4:08pm ERAS, RIGHT REVERSE TOTAL SHOULDER ARTHR OPLASTY December 24, 2024 9:14am RT TOTAL REVERSE SHLD/DR TO FAX January 15, 2025 12:00pm Family History No Family History Records Found Relationship Condition Age at Onset Recorded Date/T jimena brother Coronary artery disease Unknown History of coronary artery bypass surgery Unknown Advance Directives No Advanced Directives Records Found Advance Directive Response Recorded Date/ Time Living Will Yes December 29, 2014 1:26pm Power of Wind Tunnel Technician Yes December 1:26pm Advance Directive Response Recorded Date/ Time Name of Medical Power of Wind Tunnel Technician darby feliciano n August 17, 2023 9:53pm Living Will Yes August 17, 2023 9: 53pm Power of Wind Tunnel Technician Yes August 17, 2023 9:53pm Advance Directive Response Recorded Date/ Time Living Will Yes December 29, 2014 2:26pm Power of Wind Tunnel Technician Yes December 2:26pm Advance Directive Response Recorded Date/ Time Do you have a Healthcare Power of Wind Tunnel Technician? Yes December 23, 2024 2:44pm Summary Purpose Additional Source Comments Care Teams (unrecognized sec tion and content) Team Status: Active Member Role Status Dates Dr. Armond Saul MD Family Provider Active Dr. Armond Saul MD Primary Care Provider Activ e Team Status: Inactive Member Role Status Dates Dr. Armond Saul MD Primary Care Provider, Refe rring Provider Active Dr. Nathan Purcell MD Attending Provider Active Team Status: Active Member Role Status Dates Dr. Armond aSul MD Primary Care Provider Activ e Dr. Doyle aSndoval MD Attending Provider Active Team Status: Active Member Role Status Dates Dr. Armond Saul MD Primary Care Provider Activ e Bill Murdock BIOLOGY ADJUNCT INSTRUCTOR, BIOLOGY ADJUNCT INSTRUCTOR-C Attending Provider Active Team Status: Active Member Role Status Dates Dr. Armond Saul MD Primary Care Provider Activ e Self Referred Attending Provider Active Team Status: Inactive Member Role Status Dates Dr. Armond Saul MD Primary Care Provider Activ e Bill Murdock BIOLOGY ADJUNCT INSTRUCTOR, BIOLOGY ADJUNCT INSTRUCTOR-C Attending Provider Active Team Status: Inactive Member Role Status Dates Dr. Armond Saul MD Primary Care Provider, Refe rring Provider Active Xiomara Renee BIOLOGY ADJUNCT INSTRUCTOR, BIOLOGY ADJUNCT INSTRUCTOR-C Attending Provider Active Team Status: Active Member Role Status Dates Dr. Armond Saul MD Primary Care Provider Activ e Dr. Nathan Purcell MD Attending Provider, Referring Provider, Other Provider Active Team Status: Inactive Member Role Status Dates Dr. Armond Saul MD Primary Care Provider Activ e Dr. Nathan Purcell MD Attending Provider, Referring Pro vider Active Team Status: Active Member Role Status Dates Dr. Matt Saul MD Family Provider Active Dr. Matt Saul MD Primary Care Provider Acti ve Team Status: Inactive Member Role Status Dates Dr. Matt Saul MD Primary Care Provider, Ref erring Provider Active Duane WAGGONER, [place] Attending Provider Active Team Status: Inactive Member Role Status Dates Dr. Matt Saul MD Primary Care Provider Acti ve Dr. Joe Joshua DO Emergency Provider Active Automation Sales Manager Relationship Specialty Start Date End Date Matt Saul MD [address] [facility] [place], [place] [id number] PCP - General Family Medicine 06/30/20 Automation Sales Manager Relationship Specialty Start Date End Date Matt Saul MD [address] [facility] [address] [address] [place], [place] [address] PCP - General Family Medicine 06/30/20 Automation Sales Manager Relationship Specialty Start Date End Date Matt Saul MD [address] [facility] [address] [place], [place] [address] PCP - General Family Medicine 06/30/20 Automation Sales Manager Relationship Specialty Start Date End Date Matt Saul MD [address] [facility] [address] [facility] [address] [place], [place] [id number] PCP - General Family Medicine 06/30/20 Team Status: Inactive Member Role Status Dates Dr. Matt Saul MD Primary Care Provider Acti ve Start: April 04, 2024 End: April 04, 2024 Dr. Matt Saul MD Referring Provider Active Start: April 04, 2024 End: April 04, 2024 Dr. Nathan Purcell MD Attending Provider Active S tart: April 04, 2024 End: April 04, 2024 Team Status: Inactive Member Role Status Dates Dr. Matt Saul MD Primary Care Provider Acti ve Start: June 18, 2024 End: June 18, 2024 Dr. Matt Saul MD Attending Provider Active Start: June 18, 2024 End: June 18, 2024 Dr. Matt Saul MD Referring Provider Active Start: June 18, 2024 End: June 18, 2024 Team Status: Active Member Role/Relationship Status Dates Dr. Matt Saul MD Primary Care Provider Acti ve Team Status: Inactive Member Role/Relationship Status Dates Dr. Matt Saul MD Primary Care Provider Acti ve Start: November 26, 2024 End: November 26, 2024 Dr. Major Yi DO Attending Provider Active Start: November 26, 2024 End: November 26, 2024 Dr. Major Yi DO Referring Provider Active Start: November 26, 2024 End: November 26, 2024 Team Status: Active Member Role/Relationship Status Dates Dr. Matt Saul MD Primary Care Provider Acti ve Start: November 27, 2024 Dr. Seven Grey MD Attending Provider Active Start: November 27, 2024 Dr. Major Yi DO Referring Provider Active Start: November 27, 2024 Team Status: Inactive Member Role/Relationship Status Dates Dr. Matt Saul MD Primary Care Provider Acti ve Start: December 23, 2024 End: December 24, 2024 Dr. Major Yi DO Admit Provider Active Start: December 23, 2024 End: December 24, 2024 Dr. Major Yi DO Attending Provider Active Start: December 23, 2024 End: December 24, 2024 Dr. Major Yi DO Referring Provider Active Start: December 23, 2024 End: December 24, 2024 Dr. Major Carrillo MD Other Provider Active Start: December 23, 2024 End: December 24, 2024 Team Status: Active Member Role/Relationship Status Dates Dr. Matt Saul MD Primary Care Provider Acti ve Start: December 23, 2024 Dr. Major Yi DO Admit Provider Active Start: December 23, 2024 Dr. Major Yi DO Referring Provider Active Start: December 23, 2024 Dr. Major Yi DO Other Provider Active Start: December 23, 2024 Dr. Hansel Sultana DO Attending Provider Active Start: December 23, 2024 Dr. Hansel Sultana DO Other Provider Active Start: December 23, 2024 Team Status: Active Member Role/Relationship Status Dates Dr. Matt Saul MD Primary Care Provider Acti ve Start: December 24, 2024 Dr. Major Yi DO Admit Provider Active Start: December 24, 2024 Dr. Maojr Yi DO Referring Provider Active Start: December 24, 2024 Dr. Major Yi DO Other Provider Active Start: December 24, 2024 Dr. Major Carrillo MD Attending Provider Active Start: December 24, 2024 Dr. Major Carrillo MD Other Provider Active Start: December 24, 2024 Team Status: Active Member Role/Relationship Status Dates Dr. Matt Saul MD Primary care physician Act tobias Team Status: Inactive Member Role/Relationship Status Dates Dr. Matt Saul MD Primary care physician Act tobias Start: November 26, 2024 End: November 26, 2024 Dr. Major Yi DO Attending physician Active Start: November 26, 2024 End: November 26, 2024 Dr. Major Yi DO Referring Provider Active Start: November 26, 2024 End: November 26, 2024 Team Status: Active Member Role/Relationship Status Dates Dr. Matt Saul MD Primary care physician Act tobias Start: November 27, 2024 Dr. Seven Grey MD Attending physician Active Start: November 27, 2024 Dr. Major Yi DO Referring Provider Active Start: November 27, 2024 Team Status: Inactive Member Role/Relationship Status Dates Dr. Matt Saul MD Primary care physician Act tobias Start: December 23, 2024 End: December 24, 2024 Dr. Major Yi DO Admitting physician Active Start: December 23, 2024 End: December 24, 2024 Dr. Major Yi DO Attending physician Active Start: December 23, 2024 End: December 24, 2024 Dr. Major Yi DO Referring Provider Active Start: December 23, 2024 End: December 24, 2024 Dr. Major Carrillo MD Nurse Practitioner Active Start: December 23, 2024 End: December 24, 2024 Team Status: Active Member Role/Relationship Status Dates Dr. Matt Saul MD Primary care physician Act tobias Start: December 23, 2024 Dr. Major Yi DO Admitting physician Active Start: December 23, 2024 Dr. Major Yi DO Referring Provider Active Start: December 23, 2024 Dr. Major Yi DO Nurse Practitioner Active Start: December 23, 2024 Dr. Hansel Sultana DO Attending physician Activ e Start: December 23, 2024 Dr. Hansel Sultana DO Nurse Practitioner Active Start: December 23, 2024 Team Status: Active Member Role/Relationship Status Dates Dr. Matt Saul MD Primary care physician Act tobias Start: December 24, 2024 Dr. Major Yi DO Admitting physician Active Start: December 24, 2024 Dr. Major Yi DO Nurse Practitioner Active Start: December 24, 2024 Dr. Major Carrillo MD Attending physician Activ e Start: December 24, 2024 Dr. Major Carrillo MD Nurse Practitioner Active Start: December 24, 2024 Team Status: Inactive Member Role/Relationship Status Dates Dr. Matt Saul MD Primary care physician Act tobias Start: January 06, 2025 End: January 06, 2025 Dr. Matt Saul MD Attending physician Active Start: January 06, 2025 End: January 06, 2025 Team Status: Active Member Role/Relationship Status Dates Dr. Matt Saul MD Primary care physician Act tobias Start: January 15, 2025 EDILSON Diaz Attending physician Active Star t: January 15, 2025 EDILSON Diaz Referring Provider Active Start : January 15, 2025 Goals (unrecognized section and content) Goals may be documented in a n alternate sectionGoals may be documented in an alternate sectionGoals may be documented in an alternate sectionGoals may be documented in an alternate sectionGoals may be documented in an alternate section Source Comments (unrecognize d section and content) In the event this informatio n is protected by the Federal Confidentiality of Alcohol and Drug Abuse Patient Records regulations: The Federal rules restrict any use of the information to criminally investigate or prosecute any alcohol or drug abuse patient.[facility] the event this information is protected by the Federal Confidentiality of Alcohol and Drug Abuse Patient Records regulations: The Federal rules restrict any use of the information to criminally investigate or prosecute any alcohol or drug abuse patient.[facility] the event this information is protected by the Federal Confidentiality of Alcohol and Drug Abuse Patient Records regulations: The Federal rules restrict any use of the information to criminally investigate or prosecute any alcohol or drug abuse patient.[facility] the event this information is protected by the Federal Confidentiality of Alcohol and Drug Abuse Patient Records regulations: The Federal rules restrict any use of the information to criminally investigate or prosecute any alcohol or drug abuse patient.[facility] Reason for Visit (unrecogniz ed section and content) Reason Comments Consult colonoscopy Reason Comments Follow Up Review colonoscopy r esults. Reason Comments 02-19-2024 Colonscoopy (unrecognized sect ion and content) No Status Records FoundNo Status Records Found INFORMATION SOURCE (unrecogn ized section and content) DATE CREATED AUTHOR 03/19/2024 [facility] DATE CREATED AUTHOR AUTHOR'S ORGANIZ ATION 02/28/2025 [facility] FOR RECORDS PERTAINING TO PATIENTS WHO ARE OR HAVE BEEN ENROLLED IN A CHEMICAL DEPENDENCY/SUBSTANCEABUSE PROGRAM, SOME INFORMATION MAY BE OMITTED. This clinical summary was aggregated from multiple sources. Caution should be exercised in using it in the provision of clinical care. This summary normalizes information from multiple sources, and as a consequence, information in this document may materially change the coding, format and clinical context of patient data. In addition, data may be omitted in some cases. CLINICAL DECISIONS SHOULD BE BASED ON THE PRIMARY CLINICAL RECORDS. [employer] provides no warranty or guarantee of the accuracy or completeness of information in this document.
[2025-03-26 12:38] VITALS: BP 130/89; PULSE 72; RESP 16; TEMP 36.9; O2SAT 96; BMI 58.3
[2025-03-26] MEDS: Lactated Ringers 1,000 ML 15 ML IV (12:43)
--- NOTE | 2025-03-26 13:33 | PCM.PRE.AN2 ---
ASA Classification* ASA Classification ASA Classification: 3 Assessment & Plan Anesthesia* Anesthesia Assessment Anesthesia Assessment: Discussed sedation and/or anesthesia options, risks, benefits, and alternatives with patient/parents/legal guardian/POA. Questions invited. The patient/parents/legal guardian/POA seems to understand and agrees to proceed with anesthesia plan. Reviewed the physical assessment, medical history, allergy history and patient home medications list prior to surgery/procedure/anesthetic and documented any changes. Performed airway and anesthesia risk assessments. Anesthesia Type Anesthesia Type: General and Block History Source History Obtained from:: Patient and Chart Anesthesia Focused Assessment* Temperature: 98.5 F Pulse Rate: 72 Blood Pressure: 130/89 Respiratory Rate: 16 Pulse Ox: 96 Oxygen Delivery Method: Room Air Airway Assessment Mouth opens: >3 cm Mallampati Score: II Labs Anesthesia Preop lab: CBC WBC, (4.4-11.0) 5.1 K/mm3 03/18/25, 14:07 RBC, (4.6-6.2) 4.85 M/mm3 03/18/25, 14:07 Hgb, (13.0-16.5) 13.6 g/dL 03/18/25, 14:07 Hct, (40-54) 42.2 % 03/18/25, 14:07 Plt Count, (150-450) 282 K/mm3 03/18/25, 14:07 CHEMISTRY Potassium, (3.3-5.1) 4.4 mmol/L 12/24/24, 04:05 Sodium, (133-145) 135 mmol/L 12/24/24, 04:05 Magnesium, (1.5-2.2) 1.8 mg/dL 12/23/24, 10:15 BUN, (4-19) 20 mg/dL H 12/24/24, 04:05 Creatinine, (0.70-1.20) 1.01 mg/dL 12/24/24, 04:05 Glucose, (70-99) 175 mg/dL H 12/24/24, 04:05 POC Glucose, (74-106) 306 mg/dL H 12/24/24, 11:22 TSH, (0.358-3.74) 1.39 uIU/mL 12/27/19, 09:37 COAG PT, (11.7-14.9) 13.4 SECONDS 07/24/14, 07:45 Pre-Assessment Diagnosis/Proposed Procedure Planned Operative Procedure(s): RIGHT REVERSE TOTAL SHOULDER EXPANATION WITH PLACEMENT OF ANTIBIOTIC SPACER AND IRRIGATION AND DEBRIDEMENT Anesthesia History Anesthesia History - academic administrator: Anesthesia History - academic administrator Hx Hospitalization Yes: SHOULDER 03/25/25 13:04 Any Problems With Anesthesia No 03/25/25 13:04 Cholinesterase deficiency No 03/25/25 13:04 You/Your Family Experience No 03/25/25 13:04 fever (hyperthermia) with Relationship Recent Exposure to Contagious No 03/26/25 12:38 Disease Does patient have nerve No 03/25/25 13:04 stimulator Patient instructed to have device shut off --Does patient have Pacemaker No 03/26/25 12:38 or ICD? When Was Last Pacemaker Check QUESTION #4 FULL TEXT: You/Your Family Experience fever (hyperthermia) with Anesthesia Last Oral Intake Last Oral intake: Last Oral Intake NPO since 18:00 03/26/25 12:38 Meds taken in AM with sips of No 03/26/25 12:38 water? 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 - academic administrator: PONV - academic administrator Female No 03/25/25 13:04 HX of Motion Sickness No 03/25/25 13:04 HX of N/V After Surgery No 03/25/25 13:04 Non-Smoker Yes 03/25/25 13:04 Duration of Surgery greater Yes 03/25/25 13:04 than 60 minutes Number of Risk Factors 2 03/25/25 13:04 PONV Score Moderate Risk 03/25/25 13:04 Height & Weight Height & Weight: Anesthesia: Height & Weight Height 5 ft 11 in 03/26/25 12:38 Weight: 190 kg 03/26/25 12:38 Body Mass Index (BMI) 58.3 03/26/25 12:38 Respiratory Assessment Respiratory Assessment - academic administrator: Respiratory Tract Infection Hx - academic administrator Hx Respiratory Tract Infection No 03/25/25 13:04 STOP Sleep Apnea STOP Sleep Apnea - academic administrator: STOP Sleep Apnea - academic administrator Hx Hypertension Yes 03/25/25 13:04 Hx Sleep Apnea No 03/25/25 13:04 CPAP BIPAP Do you snore loudly (louder No 03/25/25 13:04 than talking or can be heard Do you often feel tired/ No 03/25/25 13:04 fatigued/ sleepy during daytime? Has anyone observed you stop No 03/25/25 13:04 breathing during sleep? STOP Results Negative 03/25/25 13:04 QUESTION #5 FULL TEXT : Do you snore loudly (louder than talking or can be heard through closed doors)? 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 Specify any problems Hx of Preganancy in last 3 N/A 03/25/25 13:04 Months Nurse Filling Out Transfusion [facility] 03/25/25 13:04 & Questions: Date: 03/25/25 03/25/25 13:04 Time: 13:07 03/25/25 13:04 Patient unable to answer at this time (ie. confused, unrespo /Reproduction History /Reproductive History - academic administrator: /Reproductive Hx- academic administrator Hx Now Gestational Age (in weeks): EDC: Hx Hx Para Hx Section SAB No 12/03/24 10:59 Does the father of the baby or his family experience fever w Father of the baby Malignant Hypertension history comment Active Medications Active Medications: Current Medications Generic Name Dose Route Start Last Admin Trade Name Freq PRN Reason Stop Dose Admin Acetaminophen 1,000 mg 03/26/25 14:30 03/26/25 12:43 Acetaminophen 500 Mg Tablet PO 03/26/25 14:31 1,000 mg PREOP ONE Administration Cefazolin Sodium 1 gm 03/26/25 14:30 Cefazolin 1 Gm Powder OPERA.SITE 03/26/25 14:31 INTRAOP ONE Cefazolin Sodium 2 gm/ Sodium 110 mls @ 150 mls/hr 03/26/25 14:30 Chloride IV 03/26/25 15:13 INTRAOP ONE Tranexamic Acid 1,000 mg/ 110 mls @ 660 mls/hr 03/26/25 14:30 Sodium Chloride IV 03/26/25 14:39 INTRAOP ONE Tranexamic Acid 1,000 mg/ 110 mls @ 660 mls/hr 03/26/25 15:30 Sodium Chloride IV 03/26/25 15:39 INTRAOP ONE Lactated Ringer's 1,000 mls @ 125 mls/hr 03/26/25 15:30 IV 03/26/25 23:29 .Q8H ALE Vancomycin HCl 1,250 mg/ 275 mls @ 167 mls/hr 03/26/25 14:30 Sodium Chloride IV 03/26/25 16:08 INTRAOP ONE Lactated Ringer's 1,000 mls @ 15 mls/hr 03/26/25 12:15 03/26/25 12:43 IV 15 mls/hr .Q48H ALE Administration Insulin Human Lispro 1 - 6 unit 03/26/25 14:30 Insulin Lispro 100 Unit/Ml Insuln.Pen SC 03/26/25 20:30 Q4H PRN PRN BG>/= 180, SEE PROTOCOL Protocol Tobramycin Sulfate 2.4 gm 03/26/25 14:30 Tobramycin 2.4 Gm Powder TOPICAL 03/26/25 14:31 INTRAOP ONE Vancomycin HCl 2,000 mg 03/26/25 14:30 Vancomycin 2 Gm Powder OPERA.SITE 03/26/25 14:31 INTRAOP ONE PFSH Medical History Right rotator cuff tear arthropathy Wears hearing aid Wears glasses Wears partial dentures History of steroid therapy Arthritis Dietary restriction Non-smoker History of echocardiogram History of stress test Cardiology follow-up encounter Diabetes Myocardial infarct Hypertension Osteoarthritis Gout Atherosclerosis of coronary artery of [place] heart without angina pectoris Hyperlipidemia Home Medications ?Medication ?Instructions ?Recorded ?Last Taken ?Type aspirin 81 mg tablet,delayed 81 mg PO DAILY@0800 HEART 06/09/13 03/25/25 History release metoprolol tartrate 25 mg tablet 25 mg PO BID HYPERTENSION 05/10/17 03/25/25 History metformin 500 mg tablet 500 mg PO BID DIABETES 05/11/17 03/25/25 History ezetimibe 10 mg tablet 10 mg PO DAILY CHOLESTEROL #180 10/02/17 03/25/25 Rx tabs cholecalciferol (vitamin D3) 25 4,000 unit PO DAILY SUPPLEMENT 01/21/20 03/25/25 History mcg (1,000 unit) tablet cyanocobalamin (vitamin B-12) 500 mcg PO DAILY SUPPLEMENT 01/21/20 03/25/25 History 1,000 mcg capsule alirocumab 75 mg/mL subcutaneous 150 mg subcut Q2W LDL 03/26/21 03/18/25 History pen injector (Praluent Pen) losartan 100 mg tablet 100 mg PO QHS HYPERTENSION 02/08/22 03/25/25 History allopurinol 300 mg tablet 300 mg PO BID GOUT 04/04/24 03/25/25 History tamsulosin 0.4 mg capsule 0.4 mg PO DAILY dificulty urinating 03/26/25 03/25/25 History Allergy/AdvReac Type Severity Reaction Status Date / Time Qojelss-JBZ-DyG Reductase AdvReac Mild myalgias Verified 03/25/25 12:59 Inhibitor (Nqfbcsc-Mci-Ovj Reductase Inhibitor) Family History Brother CAD (coronary artery disease) Hx of CABG Surgical History Status post reverse total arthroplasty of right shoulder Hx of colonoscopy Hx of total knee arthroplasty History of coronary artery stent placement History of left knee replacement (03/20/19) History of right knee surgery History of left knee surgery History of repair of rotator cuff Social History Smoking Status: Never smoker alcohol intake: never substance use type: does not use caffeine: Yes Type: carbonated beverages Number of servings: 1 Addt'l Information Additional Findings: > 4 METS Review of Systems (Anesthesia) ROS Narrative System reviewed and no additional complaints, except as documented. Physical Exam Const alert, oriented x3 and average body habitus HEENT dentition normal Neck full ROM Resp normal respiratory effort, normal air movement and clear to auscultation bilaterally Cardio regular rate and regular rhythm Cardio Narrative: RBBB on EKG Back/Spine normal ROM Neuro oriented x3 and moves all extremities
[2025-03-26 13:38] VITALS: BP 130/89; PULSE 72; RESP 16; TEMP 36.9; O2SAT 96
[2025-03-26 13:41] LABS: Magnesium 2.0 mg/dL (1.5-2.2)
[2025-03-26] MEDS: Magnesium Sulfate 2 GM in Dextrose 5%-Water (100mL Bag) 100 ML IV (14:00)
--- NOTE | 2025-03-26 15:32 | SUR.PREOP ---
pt's surgery delayed d/t emergency surgery from the er pt and pt's family away
[2025-03-27] VITALS (15 sets, daily range): BP systolic 109–134; BP diastolic 62–96; PULSE 61–80; RESP 12–20; TEMP 35.8–36.6; O2SAT 92–100; BMI 26.1
[2025-03-27] MEDS: Lactated Ringers 1,000 ML 15 ML IV ×2 (12:27→14:05)
--- NOTE | 2025-03-27 12:38 | PRE.ANES_ITS ---
ASA Classification* ASA Classification ASA Classification: 2 Assessment & Plan Anesthesia* Anesthesia Assessment Anesthesia Assessment: Discussed sedation and/or anesthesia options, risks, benefits, and alternatives with patient/parents/legal guardian/POA. Questions invited. The patient/parents/legal guardian/POA seems to understand and agrees to proceed with anesthesia plan. Reviewed the physical assessment, medical history, allergy history and patient home medications list prior to surgery/procedure/anesthetic and documented any changes. Performed airway and anesthesia risk assessments. Anesthesia Type Anesthesia Type: General and Block (Patient consented for block.) History Source History Obtained from:: Patient and Chart Anesthesia Focused Assessment* Temperature: 97.7 F Pulse Rate: 70 Blood Pressure: 130/82 Respiratory Rate: 18 Pulse Ox: 100 Oxygen Delivery Method: Room Air Airway Assessment Mouth opens: >3 cm Mallampati Score: II Teeth Condition: Partial (upper, removable. ) Neck Range of motion (ROM): Full ROM Labs Anesthesia Preop lab: CBC WBC, (4.4-11.0) 5.1 K/mm3 03/18/25, 14:07 RBC, (4.6-6.2) 4.85 M/mm3 03/18/25, 14:07 Hgb, (13.0-16.5) 13.6 g/dL 03/18/25, 14:07 Hct, (40-54) 42.2 % 03/18/25, 14:07 Plt Count, (150-450) 282 K/mm3 03/18/25, 14:07 CHEMISTRY Potassium, (3.3-5.1) 4.4 mmol/L 12/24/24, 04:05 Sodium, (133-145) 135 mmol/L 12/24/24, 04:05 Magnesium, (1.5-2.2) 2.0 mg/dL 03/26/25, 13:11 BUN, (4-19) 20 mg/dL H 12/24/24, 04:05 Creatinine, (0.70-1.20) 1.01 mg/dL 12/24/24, 04:05 Glucose, (70-99) 175 mg/dL H 12/24/24, 04:05 POC Glucose, (74-106) 129 mg/dL H 03/26/25, 12:46 TSH, (0.358-3.74) 1.39 uIU/mL 12/27/19, 09:37 COAG PT, (11.7-14.9) 13.4 SECONDS 07/24/14, 07:45 Pre-Assessment Diagnosis/Proposed Procedure Planned Operative Procedure(s): RIGHT REVERSE TOTAL SHOULDER EXPANATION WITH PLACEMENT OF ANTIBIOTIC SPACER AND IRRIGATION AND DEBRIDEMENT Anesthesia History 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 When Was Last Pacemaker Check QUESTION #4 FULL TEXT: You/Your Family Experience fever (hyperthermia) with Anesthesia Any additional information?: No Last Oral Intake Last Oral intake: Last Oral Intake NPO since 07:00 03/27/25 12:07 Meds taken in AM with sips of Yes 03/27/25 12:07 water? Meds patient instructed to metoprolol 03/27/25 12:07 take am of surgery Any additional information?: No PONV PONV - test kitchen home economist: PONV - test kitchen home economist Female No 03/25/25 13:04 HX of Motion Sickness No 03/25/25 13:04 HX of N/V After Surgery No 03/25/25 13:04 Non-Smoker Yes 03/25/25 13:04 Duration of Surgery greater Yes 03/25/25 13:04 than 60 minutes Number of Risk Factors 2 03/25/25 13:04 PONV Score Moderate Risk 03/25/25 13:04 Any additional information?: No Height & Weight Height & Weight: Anesthesia: Height & Weight Height 5 ft 11 in 03/27/25 12:07 Weight: 85 kg 03/27/25 12:07 Body Mass Index (BMI) 26.1 03/27/25 12:07 Respiratory Assessment Respiratory Assessment - test kitchen home economist: Respiratory Tract Infection Hx - test kitchen home economist Hx Respiratory Tract Infection No 03/25/25 13:04 Any additional information?: No STOP Sleep Apnea STOP Sleep Apnea - test kitchen home economist: STOP Sleep Apnea - test kitchen home economist Hx Hypertension Yes 03/25/25 13:04 Hx Sleep Apnea No 03/25/25 13:04 CPAP BIPAP Do you snore loudly (louder No 03/25/25 13:04 than talking or can be heard Do you often feel tired/ No 03/25/25 13:04 fatigued/ sleepy during daytime? Has anyone observed you stop No 03/25/25 13:04 breathing during sleep? STOP Results Negative 03/25/25 13:04 QUESTION #5 FULL TEXT : Do you snore loudly (louder than talking or can be heard through closed doors)? 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 Specify any problems Hx of Preganancy in last 3 N/A 03/25/25 13:04 Months Nurse Filling Out Transfusion [facility] 03/25/25 13:04 & Questions: Date: 03/25/25 03/25/25 13:04 Time: 13:07 03/25/25 13:04 Patient unable to answer at this time (ie. confused, unrespo Any additional information?: No /Reproduction History /Reproductive History - test kitchen home economist: /Reproductive Hx- test kitchen home economist Hx Now Gestational Age (in weeks): EDC: Hx Hx Para Hx Section SAB No 12/03/24 10:59 Does the father of the baby or his family experience fever w Father of the baby Malignant Hypertension history comment Active Medications Active Medications: Current Medications Generic Name Dose Route Start Last Admin Trade Name Freq PRN Reason Stop Dose Admin Lactated Ringer's 1,000 mls @ 125 mls/hr 03/27/25 07:00 IV 03/27/25 14:59 .Q8H ALE Insulin Human Lispro 1 - 6 unit 03/27/25 07:00 Insulin Lispro 100 Unit/Ml Insuln.Pen SC 03/28/25 07:01 Q4H PRN PRN BG>/= 180, SEE PROTOCOL Protocol PFSH Medical History Right rotator cuff tear arthropathy Wears hearing aid Wears glasses Wears partial dentures History of steroid therapy Arthritis Dietary restriction Non-smoker History of echocardiogram History of stress test Cardiology follow-up encounter Diabetes Myocardial infarct Hypertension Osteoarthritis Gout Atherosclerosis of coronary artery of [place] heart without angina pectoris Hyperlipidemia Home Medications ?Medication ?Instructions ?Recorded ?Last Taken ?Type aspirin 81 mg tablet,delayed 81 mg PO DAILY@0800 HEART 06/09/13 03/26/25 History release metoprolol tartrate 25 mg tablet 25 mg PO BID HYPERTEN FRANCISCO 05/10/17 03/27/25 History metformin 500 mg tablet 500 mg PO BID DIABETES 05/1103/26/25 History ezetimibe 10 mg tablet 10 mg PO DAILY CHOLESTEROL # 180 10/02/17 03/26/25 Rx tabs cholecalciferol (vitamin D3) 25 4,000 unit PO DAILY [place] PPLEMENT 01/21/20 03/26/25 History mcg (1,000 unit) tablet cyanocobalamin (vitamin B-12) 500 mcg PO DAILY SUPPLEM ENT 01/21/20 03/26/25 History 1,000 mcg capsule alirocumab 75 mg/mL subcutaneous 150 mg subcut Q2W LDL 03/26/21 03/18/25 History pen injector (Praluent Pen) losartan 100 mg tablet 100 mg PO QHS HYPERTENSION 1 03/26/25 History allopurinol 300 mg tablet 300 mg PO BID GOUT 04/04/24 03/26/25 History tamsulosin 0.4 mg capsule 0.4 mg PO DAILY dificulty ur inating 03/26/25 03/26/25 History Allergy/AdvReac Type Severity Reaction Status Date / Time Zcwueze-EZI-DoC Reductase AdvReac Mild myalgias Verified 03/27/25 12:04 Inhibitor (Rlcorgt-Rzi-Mzr Reductase Inhibitor) Family History Brother CAD (coronary artery disease) Hx of CABG Surgical History Status post reverse total arthroplasty of right shoulder Hx of colonoscopy Hx of total knee arthroplasty History of coronary artery stent placement History of left knee replacement (03/20/19) History of right knee surgery History of left knee surgery History of repair of rotator cuff Social History Smoking Status: Never smoker alcohol intake: never substance use type: does not use caffeine: Yes Type: carbonated beverages Number of servings: 1 Review of Systems (Anesthesia) ROS Narrative System reviewed and no additional complaints, except as documented.
[2025-03-27 13:08] LABS: Magnesium 2.1 mg/dL (1.5-2.2)
[2025-03-27] MEDS: Magnesium 1 GM over 15 mins IV (14:06)
[2025-03-27] MEDS: Midazolam 2 MG/2 ML Syringe IV (14:16)
[2025-03-27] MEDS: Cefazolin 1 GM/5 ML Vial 2 GM IV (14:35)
[2025-03-27] MEDS: Lactated Ringers 1,000 ML 1000 ML IV (14:35)
[2025-03-27] MEDS: Lidocaine 1% (5 ml sdv) 5 ML Vial 8 ML IV (14:41)
[2025-03-27] MEDS: TRANEXAMIC ACID 1,000 MG/10 ML ML 1000 MG IV (16:05)
[2025-03-27] MEDS: CEFAZOLIN 2 GM 1 GM OPERA.SITE (16:30)
[2025-03-27] MEDS: Vancomycin 6 GM Powder 2000 MG OPERA.SITE (16:31)
[2025-03-27] MEDS: Mineral Oil, Light Sterile 10 ML Vial MC (16:33)
--- NOTE | 2025-03-27 16:51 | PCM.POST.ANE ---
Anesthesia: Postop Eval I Current Vital Signs Temperature: 96.9 F Pulse Rate: 80 Blood Pressure: 123/96 Respiratory Rate: 20 Pulse Ox: 95 Oxygen Delivery Method: Room Air Assessment Airway patent: Yes Spontaneous unlabored respirations: Yes Mental status: Awake and Calm nausea: No Vomiting: No Anesthesia Complication: No Fluid Hydration Crystalloid volume administer (ml): 1,300 Total IV fluid infused: 1,300 Progress Note Anesthesia document: Postop Eval 1 completed: Yes
--- NOTE | 2025-03-27 17:08 | OP.PCM_ITS ---
Operative Report (Standard) Operative Information Date of Procedure: 03/27/25 Pre-Operative Diagnosis: Right shoulder prosthetic joint infection Post-Operative Diagnosis: Right shoulder prosthetic joint infection Surgery/Procedure Performed: Right reverse total shoulder arthroplasty revision with explantation, irrigation and debridement and placement of articulating antibiotic spacer taxicab coordinator: Yes Workers Compensation Claims Analyst: Oneyda Solano Tasks completed by client services assistant: Opening & closing, Removing tissue, Implanting device, Hemostasis: Electrocautery and Retracting Additional hair or beauty salon assistant?: No Type of Anesthesia: General/Regional RN Documented Start/Stop Times: Operation Date: 03/27/25 14:30 Case Time Into Pre-Op 03/27/25 11:58 Anesthesia Start 03/27/25 14:35 Into Room 03/27/25 14:35 Procedure Start 03/27/25 15:04 Procedure End 03/27/25 16:41 Anesthesia End 03/27/25 16:46 Into Recovery 03/27/25 16:46 Out of Room 03/27/25 16:46 Out of Pre-Op Procedure Start Time: 15:04 Procedure Stop Time: 16:41 Select all DRAINS/GRAFTS/IMPLANTS that apply: Implanted device Implanted device details: Simplex antibiotic spacer proximal humerus Special Medications: Antibiotic spacer mixed with 2 g Ancef, 2 g vancomycin, 2.4 g tobramycin Estimated Blood Loss: 200 cc Specimen collected: Yes Description of specimen(s) removed: Intraoperative tissu e cultures x 5 Description of surgery: Patient was identified in the preoperative holding area by name, medical record number, and date of . The operative extremity was marked. All questions were answered to the patient's satisfaction. Interscalene block was then administered by anesthesia staff. At time of his procedure, patient was brought to the operative suite and positioned supine on a standard operating table. General anesthesia was induced and ET tube placed. Patient was then positioned in the beachchair position with all bony prominences well-padded. We spun the bed 45 degrees. He was secured with a chest strap. We prepped and draped the right upper extremity in a normal, sterile orthopedic fashion. A timeout was called confirming the side, site, and operation be performed. No concerns were voiced and we elected to proceed with surgery. 2 g Ancef and 1 g IV vancomycin was administered prior to incision. The vancomycin was infused throughout the procedure. Previous skin incision was then opened with a 10 blade scalpel. Cautery was used to dissect through the fibrotic previous surgical dissection. Tissue appeared benign at this time consistent with prior surgery. No significant inflammation or evidence of superficial infection was noted. Deeper dissection was carried until the rotator interval was encountered and a pseudocapsule had formed around the prosthetic joint. This capsular layer was then opened and purulent fluid was encountered. This purulent fluid was evacuated. Rotator interval tissue was sent for tissue culture. Thorough capsulectomy was performed. Any nonviable tissue was excised. I then dislocated the shoulder. A screw was used to remove the polyethylene component. Purulence was noted on the interface between the polyethylene and the humerus. A flexible osteotome was then used to free the humeral implant from the bone. Broach handle was placed and the implant was removed without injury to the proximal humerus. Evidence of infection in the surrounding tissue within the intramedullary canal was noted. This tissue was sent for culture. Debridement of the canal was performed with a curette and thoroughly irrigated with pulse lavage. I then subluxed the shoulder posteriorly. The glenosphere was then removed. Purulence was noted behind the glenosphere which was sent for culture. Upon exposing the glenoid baseplate a retractor was placed into the subacromial bursa and gross purulence was encountered. This was thoroughly irrigated and debrided and tissue sent for culture. The glenoid baseplate was then removed sequentially by first removing the screws and then I was able to rotate the implant freely and remove it is 1 piece including the press-fit post. Purulence was also noted at the bone implant interface on the glenoid and this was also sent for culture. Thorough synovectomy in the visualized posterior capsule. Any nonviable tissue was excised. The wound was copiously irrigated with 3 L normal saline, a dilute sterile Betadine soak for 3 minutes and then able another 3 L of normal saline. A trial was used to select the appropriate mold for the proximal humerus. A size 4 stem was selected and a mold was picked. 2 batches of Simplex cement were mixed with 2 g vancomycin, 2 g Ancef and 2.4 g tobramycin on the back table. Mold was allowed to set and then finally implanted with a half a batch of simple Simplex cement to stabilize the antibiotic spacer. Final reduction was performed. The interval was closed with a running, locking #1 PDS suture. Dermis was reapproximated with buried 2-0 PDS suture and skin finally reapproximated karli. Patient was placed in a simple sling. He is safely awakened in the operative suite and extubated. Surgical Findings: Gross purulence. Findings consistent with PJI. Complications Complications: No Admit VTE Documentation VTE Present on Admission: No VTE Mechan Device Prophylaxis: SCD's VTE Pharm Prophylaxis ordered?: Yes
--- NOTE | 2025-03-27 17:10 | RAD_ITS ---
PROCEDURE: SHOULDER MIN 2 VIEWS 03/27/2025 REASON FOR EXAM: POST OP TECHNIQUE: Procedure Code: RADSH Modality: DX Procedure: SHOULDER MIN 2 VIEWS Laterality: Right COMPARISON: 12/23/2024 FINDINGS: Postoperative changes status post removal of the previously seen right shoulder arthroplasty hardware, with bone grafting/cement material to the proximal right humerus. Mild-moderate degenerative arthrosis of the glenohumeral and AC joints. Anatomic alignment. Mild generalized postoperative soft tissue swelling and small amount of soft tissue gas about the right shoulder, with overlying karli. RAD/Shoulder min 2 Views IMPRESSION: Postoperative changes to the right shoulder, as described above. Reading Location: [id number]
[2025-03-27] MEDS: Lactated Ringers 500 ML 999 ML IV (17:42)
[2025-03-27 18:37] LABS: Estimated Creatinine Clearance 71.97 ml/min (50-250)
--- NOTE | 2025-03-27 18:49 | PCM.PN.HOSP ---
Reason for Visit Chief Complaint: right post op shoulder Subjective Subjective Pt seen and examined post op from Dr. Yi Right shoulder prosthetic joint infection irrigation and debridement with placement of antibiotic spacer. Pt is resting comfortably in bed NAD. He reports zero pain at this time. He has no complaints. He has had some liquid PO intake with no issues. He has no n/v, no dizziness. He is currently on O2 post op, normally does not use O2 at home, has no SOB or cough. Objective Data Objective Data Vital Signs: Vital Signs Temp Pulse Resp BP Pulse Ox O2 Del Method O2 Flow Rate 96.5 F L 65 17 125/70 H 99 Nasal Cannula 4 03/27/25 17:55 03/27/25 17:55 03/27/25 17:55 03/27/25 17:55 03/27/25 17:55 03/27/25 17:55 03/27/25 17:55 Oxygen Flow Rate (L/min) 4 Oxygen Delivery Method Nasal Cannula Weight: 85 kg Body Mass Index (BMI) 26.1 Intake & Output: Intake and Output for Last 24 Hours 03/25/25 03/26/25 03/27/25 23:59 23:59 23:59 Intake Total 1586.5 / 1586.5 Output Total 200 / 200 Balance 1386.5 / 1386.5 Lab / Micro Data 03/27/25 12:20 Labs: Laboratory Results - last 24 hr 03/27/25 12:20: Creatinine 0.93, Estim Creat Clear Calc 71.97, Est GFR (MDRD) Non-Af 86, Magnesium 2.1 03/27/25 12:30: POC Glucose 119 H Radiography Diagnostic Testing: Radiology Impression Shoulder X-Ray 03/27/25 17:10 IMPRESSION: Postoperative changes to the right shoulder, as described above. Reading Location: 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 Right infected shoulder prosthesis - s/p irrigation and debridement with antibiotic spacer placement today per Dr. Yi. Infectious disease on consult. Cultures pending. Pt afebrile. No pain at this time. On vanc and ceftriaxone, received ancef and tobramycin intraop. CBC/BMP pending in AM. 2. DMt2 - hold metformin. SSI ACHS with accuchecks ordered. 3. CAD - prior [place] and single stent placement. on asa, metoprolol, arb held, no statin due to allergy/intolerance. 4. HTN - hold losartan for now, continue metoprolol 5. HLD - on praluent as he does not tolerate statins, and zetia 6. BPH - on flomax. Thank you for the opportunity to participate in the care of this patient. This patient was seen by Jadon Lo PA-C under the supervision of Dr. Carrillo.
--- NOTE | 2025-03-27 18:50 | PCM.RX.CS ---
Consult Antibiotic Management Pharmacy has been consulted to manage selected antibiotic: Vancomycin Type of Intervention Type of Consult: New start Suspected Infection Suspected Infection: Other (PROSTHETIC SHOULDER INFECTION) Prior Doses of Antibiotics Prior Doses of Antibiotics Received/Current Regimen: Vancomycin 1250 mg IV x 1 given intraop by Gelacio LOFTON on 03/27/25 @ 1435 Labs Labs: Creatinine 0.93 mg/dL (0.70-1.20) 03/27/25 12:20 Est GFR (MDRD) Non-Af 86 (>60) 03/27/25 12:20 Dosing Weight Weight used for dosin kg Estimated Creatinine Clearance Estimated Creatinine Clearance: ~ 72 Goal Trough Goal Trough: 15-20 mcg/mL Pharmacy Plan for Drug Dosing Pharmacy Plan for Drug Dosing: Vancomycin 1250 mg IV x 1 followed by 1250 mg Q12H Pharmacy Service will continue to monitor and adjust dosing as required. Follow-Up Labs Follow-Up Labs: Trough: Vancomycin Date/Time Labs Ordered Labs to be done on [date and time ordered]: 03/29/25 @ 0200
--- NOTE | 2025-03-27 20:47 | POSTOPAN2_ITS ---
Anesthesia Postop Eval I Sum Postop Eval Completion status Anesthesia document: Postop Eval 1 completed: Yes Anesthesia Postop Eval I Summary Anesthesia Postop Eval I Summary: Anesthesia Postop Eval I: Assessment Summary Airway patent Yes 03/27/25 16:52 [email or web address] Spontaneous unlabored Yes 03/27/25 16:52 [email or web address] [email or web address] respirations Mental status Awake,Calm 03/27/25 16:52 [email or web address] nausea No 03/27/25 16:52 [email or web address] [email or web address] Vomiting No 03/27/25 16:52 [email or web address] Anesthesia Postop Eval I: Fluid Summary Crystalloid volume administer 1,300 03/27/25 16:52 [email or web address] [email or web address] (ml) Colloids volume administered ( ml) Blood Product volume administered (ml) Total IV fluid infused 1,300 03/27/25 16:52 [email or web address] [email or web address] Anesthesia Postop Eval I: Summary Notes Anesthesia Complication No 03/27/25 16:52 [email or web address] Anesthesia Complication Comment: Post-operative progress note Anesthesia: Postop Eval II Evaluation Mental status: Awake and Calm Pain Level: 1 nausea: No Vomiting: No Complications Anesthesia Complication: No
--- NOTE | 2025-03-27 20:47 | PCM.POSTANE2 ---
Anesthesia Postop Eval I Sum Postop Eval Completion status Anesthesia document: Postop Eval 1 completed: Yes Anesthesia Postop Eval I Summary Anesthesia Postop Eval I Summary: Anesthesia Postop Eval I: Assessment Summary Airway patent Yes 03/27/25 16:52 TRIMMER [email or web address] Spontaneous unlabored Yes 03/27/25 16:52 TRIMMER [email or web address] respirations Mental status Awake,Calm 03/27/25 16:52 TRIMMER [email or web address] nausea No 03/27/25 16:52 TRIMMER [email or web address] Vomiting No 03/27/25 16:52 TRIMMER [email or web address] Anesthesia Postop Eval I: Fluid Summary Crystalloid volume administer 1,300 03/27/25 16:52 TRIMMER [email or web address] (ml) Colloids volume administered ( ml) Blood Product volume administered (ml) Total IV fluid infused 1,300 03/27/25 16:52 TRIMMER [email or web address] Anesthesia Postop Eval I: Summary Notes Anesthesia Complication No 03/27/25 16:52 TRIMMER [email or web address] Anesthesia Complication Comment: Post-operative progress note Anesthesia: Postop Eval II Evaluation Mental status: Awake and Calm Pain Level: 1 nausea: No Vomiting: No Complications Anesthesia Complication: No
[2025-03-27] MEDS: Senna/Docusate Sodium 1 Tablet 2 TABLET PO (20:56)
[2025-03-28] VITALS (8 sets, daily range): BP systolic 123–167; BP diastolic 73–90; PULSE 55–90; RESP 16–18; TEMP 36.6–37.2; O2SAT 96–100
[2025-03-28] MEDS: Vancomycin HCl 1,250 MG in 0.9% Normal Saline (250mL Bag) 250 ML 167 MG IV ×2 (02:31→13:31)
[2025-03-28 08:23] LABS: Hematocrit 37.3 % (40-54); Hemoglobin 12.3 g/dL (13.0-16.5); Mean Corp Hgb Conc 33.0 g/dL (32-36); Mean Corpuscular Volume 84.0 fL (80-94); Mean Platelet Vol. 10.3 fl (6.2-12.0); Platelet Count 257 K/mm3 (150-450); RBC Distribution Width CV 13.2 % (11.6-14.6); RBC Distribution Width SD 40.7 fl (35.1-43.9); Red Blood Count 4.44 M/mm3 (4.6-6.2); White Blood Count 6.1 K/mm3 (4.4-11.0)
[2025-03-28] MEDS: Aspirin E.C. 81 MG Tablet PO (09:01)
[2025-03-28] MEDS: Senna/Docusate Sodium 1 Tablet 2 TABLET PO ×2 (09:01→19:54)
[2025-03-28 09:06] LABS: Anion Gap 12 (5-15); BUN 12 mg/dL (4-19); BUN/Creat Ratio 16.1 RATIO (10-20); Calcium,Total 9.6 mg/dL (7.6-11.0); Carbon Dioxide 22.6 mmol/L (21.0-32.0); Chloride 101 mmol/L (98-108); Estimated Creatinine Clearance 83.67 ml/min (50-250); Glucose 212 mg/dL (70-99); Potassium 3.9 mmol/L (3.3-5.1)
--- NOTE | 2025-03-28 10:02 | PCM.PN.HOSP ---
Subjective Subjective Urine function stable can restart his losartan at night Objective Data Objective Data Vital Signs: Vital Signs Temp Pulse Resp BP Pulse Ox O2 Del Method O2 Flow Rate 98.2 F 67 17 126/79 H 97 Room Air 2 03/28/25 08:00 03/28/25 09:01 03/28/25 08:00 03/28/25 08:00 03/28/25 08:00 03/28/25 08:00 03/27/25 20:35 Oxygen Flow Rate (L/min) 2 Oxygen Delivery Method Room Air Weight: 187 lb 6.287 oz Body Mass Index (BMI) 26.1 Intake & Output: Intake and Output for Last 24 Hours 03/27/25 03/28/25 03/29/25 03:59 03:59 03:59 Intake Total 1586.5 / 1586.5 325 / 325 Output Total 200 / 200 Balance 1386.5 / 1386.5 325 / 325 Lab / Micro Data 03/28/25 07:26 03/28/25 07:26 Labs: Laboratory Results - last 24 hr 03/27/25 12:20: Creatinine 0.93, Estim Creat Clear Calc 71.97, Est GFR (MDRD) Non-Af 86, Magnesium 2.1 03/27/25 12:30: POC Glucose 119 H 03/27/25 20:54: POC Glucose 242 H 03/28/25 06:15: POC Glucose 241 H 03/28/25 07:26: WBC 6.1, RBC 4.44 L, Hgb 12.3 L, Hct 37.3 L, MCV 84.0, MCH 27.7, MCHC 33.0, RDW Std Deviation 40.7, RDW Coeff of Destiny 13.2, Plt Count 257, MPV 10.3, Sodium 136, Potassium 3.9, Chloride 101, Carbon Dioxide 22.6, Anion Gap 12, BUN 12, Creatinine 0.76, Estim Creat Clear Calc 83.67, Est GFR (MDRD) Non-Af 93, BUN/Creatinine Ratio 16.1, Glucose 212 H, Calcium 9.6 Micro: Microbiology 03/27/25 16:15 Tissue - Shoulder Gram Stain - Final 03/27/25 16:15 Tissue - Shoulder Gram Stain - Final 03/27/25 16:15 Tissue - Shoulder Gram Stain - Final 03/27/25 16:15 Tissue - Shoulder Gram Stain - Final 03/27/25 16:15 Tissue - Shoulder Gram Stain - Final Radiography Diagnostic Testing: Radiology Impression Shoulder X-Ray 03/27/25 17:10 IMPRESSION: Postoperative changes to the right shoulder, as described above. Reading Location: [facility] Physical Exam Narrative General: Alert, Oriented x3, Cooperative, No apparent distress HEENT: Atraumatic, PERRLA, EOMI, Normocephalic Oral: Moist Mucosa Neck: Supple, No JVD Lungs: Diminished, Normal air movement, No rhonchi, No wheeze, No rales Cardiovascular: Regular rate, Regular Rhythm, Normal S1, Normal S2, chronic MANUEL Abdomen: Soft, Non Tender, Non-Distended, No Hepato-splenomegaly Extremities: No edema, Capillary Refill Less than 3 Seconds Skin: No rashes, No breakdown Musculoskeletal: Right arm sling surgical site CDI Neurological: No focal neurological deficits, moves all extremities Psych/Mental Status: Normal Affect, Appropriate Assessment & Plan Assessment/Plan (1) 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 Right infected shoulder prosthesis s/p irrigation and debridement with antibiotic spacer placement 03/27/2025 ? Pain management per primary ? Continue with broad-spectrum antibiotics ? Infectious diseases been consulted, cultures are pending ? Medically stable 2. DMt2 ? Hold metformin ? SSI ACHS with accuchecks 3. CAD status post stent/essential HTN/HLD ? Can resume losartan as his renal function is stable ? Continue with aspirin and his metoprolol 4. BPH with obstruction ? Stable ? Continue with Flomax DVT: Per primary Please call with questions Charges/Coding Visit Charges Inpatient E&M: 79431 Subs Hosp L2
--- NOTE | 2025-03-28 12:22 | CASEMGMT ---
FERMIN BHATIA Assessment Face to Face with patient for initial transition planning/care coordination assessment. FERMIN BHATIA introduced self and role at [facility], pt voices understanding. Pt is A&Ox4 and is resting comfortably in bed and is calm. Care providers, pharmacy, and demographics verified. Admitting dx: Right Shoulder Prosthetic Joint Infection LACE Strata: 1 PCP: Miguelito Saul Specialists: JESUS. Cardiology, Ophthalmology, Otolaryngology, and Podiatry through the [place] Preferred Pharmacy: [facility] Insurance: MCR A/B, AETNA Supp Prescription Benefit: Yes LNOK: Madeleine (W), Miguelito (Son) Living Arrangements: Pt lives with his in a 2 story home with one step to enter ADLs/IADLs: Indep. Denies needs or concerns Transportation: Self, , family DME: [employer] with sufficient testing supplies, Access to a FWW, cane, shower chair, and BP Machine HHC/SNF: Denies hx of Pt?s goal: Home Plan: TBD, Anticipate return home once medically ready. Follow for IV ATB needs. Per chart review, pt underwent surgery on 03/27 with an ATB spacer. Cx are pending. ID consulted. This investigative writer educated the pt about the potential for home IV ATB and what this could entail. Pt states that his can be the teachable caregiver. Pt educated about the infusion center if the IV ATB is only daily. Informed the pt about the option for HH. Pt declines wanting to review a list of local in-network HHC Agencies and states that he prefers [facility] HH if HH is warranted. Pt was provided with a verbal list of Local in-network Home Infusion Companies and pt states that he prefers [facility]. CM to follow ID consult for final IV recommendations. Pt denies any further questions or concerns at this time. Report given to BELLA CHRISTENSEN CM. Temo Hernandez RN, CM
--- NOTE | 2025-03-28 13:16 | PCM.PN.ORT ---
Subjective Subjective Patient seen and examined. Pain is not adequately controlled with oral pain medicine. He states pain was well-controlled until the nerve block wore off this morning. Denies any fevers, chills, nausea or vomiting, chest pain or shortness of breath. Objective Data Objective Data Synovasure results from my office electronic medical record were reviewed. Data suggests markers of C acnes. Vital Signs: Vital Signs Temp Pulse Resp BP Pulse Ox O2 Del Method O2 Flow Rate 98.2 F 67 17 126/79 H 97 Room Air 2 03/28/25 08:00 03/28/25 09:01 03/28/25 08:00 03/28/25 08:00 03/28/25 08:00 03/28/25 08:00 03/27/25 20:35 Oxygen Flow Rate (L/min) 2 Oxygen Delivery Method Room Air Weight: 187 lb 6.287 oz Body Mass Index (BMI) 26.1 Intake & Output: Intake and Output for Last 24 Hours 03/26/25 03/27/25 03/28/25 23:59 23:59 23:59 Intake Total 1586.5 / 1586.5 325 / 325 Output Total 200 / 200 Balance 1386.5 / 1386.5 325 / 325 Lab / Micro Data 03/28/25 07:26 03/28/25 07:26 Labs: Laboratory Results - last 24 hr 03/27/25 12:20: Creatinine 0.93, Estim Creat Clear Calc 71.97, Est GFR (MDRD) Non-Af 86 03/27/25 12:30: POC Glucose 119 H 03/27/25 20:54: POC Glucose 242 H 03/28/25 06:15: POC Glucose 241 H 03/28/25 07:26: WBC 6.1, RBC 4.44 L, Hgb 12.3 L, Hct 37.3 L, MCV 84.0, MCH 27.7, MCHC 33.0, RDW Std Deviation 40.7, RDW Coeff of Destiny 13.2, Plt Count 257, MPV 10.3, Sodium 136, Potassium 3.9, Chloride 101, Carbon Dioxide 22.6, Anion Gap 12, BUN 12, Creatinine 0.76, Estim Creat Clear Calc 83.67, Est GFR (MDRD) Non-Af 93, BUN/Creatinine Ratio 16.1, Glucose 212 H, Calcium 9.6 Micro: Microbiology 03/27/25 16:15 Tissue - Shoulder Gram Stain - Final 03/27/25 16:15 Tissue - Shoulder Gram Stain - Final 03/27/25 16:15 Tissue - Shoulder Gram Stain - Final 03/27/25 16:15 Tissue - Shoulder Gram Stain - Final 03/27/25 16:15 Tissue - Shoulder Gram Stain - Final Radiography Diagnostic Testing: Radiology Impression Shoulder X-Ray 03/27/25 17:10 IMPRESSION: Postoperative changes to the right shoulder, as described above. Reading Location: [id number] Physical Exam Narrative General - A&Ox3, appears uncomfortable. VSS/AF. Right upper Extremity - SILT & 5/5 in radial, ulnar, musculocutaneous, axillary, and median nerve distributions. Radial, ulnar pulses 2+. Compartments soft and compressible. BCR in finger tips. Incisional dressing C/D/I. 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 Cultures pending but Synovasure shows markers of C acnes. - Pain control -continue Tylenol and oxycodone. Adding breakthrough Dilaudid. - Medicine following for medical management -Infectious disease following. Appreciate recommendations. Plan for likely PICC. - PT/OT - DVT PPX -Multimodal with early mobilization, SCDs, aspirin 81 mg - Case management - D/C planning. Plan for PICC line, and will need coordinated IV antibiotic therapy. Suspect at least tomorrow if not through the weekend until disposition is completely established. Patient benefits from staying another night at least for pain control due to requirement of IV pain medication.
--- NOTE | 2025-03-28 13:31 | CON.PCM.ID_ITS ---
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 acnes. Taken to OR 03/27/[address] Yi for I&D and spacer placement. Surg cx pending. On empiric vanc/ceftriaxone. Will order picc and plan on 6 weeks iv ceftriaxone daily with weekly labs, ID followup in 2-3 weeks. D/w Dr. Yi and adult protective caseworker. Will follow, thank you HPI Consult Data Date of Consult: 03/28/25 HPI Narrative Reason for Consultation: PJI HPI Narrative: MARIA E GUTHRIE, is a 74 M who had R shoulder replacement 12/23/24. He is R handed. Had difficulty with wound healing, progressive drainage and redness at the site. Mild fatigue, minimal pain. Had followup with ortho, aspiration done, admitted and taken to OR 03/27/[address] Yi for I&D and spacer placement. Arm is sore today. No recent abx prior to this admission. Full ROS performed and neg except as noted above. [facility] Medical History Right rotator cuff tear arthropathy Wears hearing aid Wears glasses Wears partial dentures History of steroid therapy Arthritis Dietary restriction Non-smoker History of echocardiogram History of stress test Cardiology follow-up encounter Diabetes Myocardial infarct Hypertension Osteoarthritis Gout Atherosclerosis of coronary artery of [place] heart without angina pectoris Hyperlipidemia Home Medications ?Medication ?Instructions ?Recorded ?Last Taken ?Type aspirin 81 mg tablet,delayed 81 mg PO DAILY@0800 HEART 06/09/13 03/26/25 History release metoprolol tartrate 25 mg tablet 25 mg PO BID HYPERTEN FRANCISCO 05/10/17 03/27/25 History metformin 500 mg tablet 500 mg PO BID DIABETES 05/1103/26/25 History ezetimibe 10 mg tablet 10 mg PO DAILY CHOLESTEROL # 180 10/02/17 03/26/25 Rx tabs cholecalciferol (vitamin D3) 25 4,000 unit PO DAILY VENTURA PPLEMENT 01/21/20 03/26/25 History mcg (1,000 unit) tablet cyanocobalamin (vitamin B-12) 500 mcg PO DAILY SUPPLEM ENT 01/21/20 03/26/25 History 1,000 mcg capsule alirocumab 75 mg/mL subcutaneous 150 mg subcut Q2W LDL 03/26/21 03/18/25 History pen injector (Praluent Pen) losartan 100 mg tablet 100 mg PO QHS HYPERTENSION 1 03/26/25 History allopurinol 300 mg tablet 300 mg PO BID GOUT 04/04/24 03/26/25 History tamsulosin 0.4 mg capsule 0.4 mg PO DAILY dificulty ur inating 03/26/25 03/26/25 History ceftriaxone 2 gram intravenous 2 g IV DAILY 42 days Unknown Rx solution Allergy/AdvReac Type Severity Reaction Status Date / Time Uqtelum-AVX-PzX Reductase AdvReac Mild myalgias Verified 03/27/25 12:04 Inhibitor (Rkmmxqv-Gdz-Wpw Reductase Inhibitor) Family History Brother CAD (coronary artery disease) Hx of CABG Surgical History Status post reverse total arthroplasty of right shoulder Hx of colonoscopy Hx of total knee arthroplasty History of coronary artery stent placement History of left knee replacement (03/20/19) History of right knee surgery History of left knee surgery History of repair of rotator cuff Social History Smoking Status: Never smoker alcohol intake: never substance use type: does not use caffeine: Yes Type: carbonated beverages Number of servings: 1 Physical Exam Const alert, oriented x3 and no apparent distress General Appearance: cooperative HEENT normocephalic and head/scalp atraumatic Eyes PERRL and EOMs intact bilaterally Neck supple and No nodes Resp normal air movement and clear to auscultation bilaterally Cardio regular rate and regular rhythm GI soft to palpation, non-tender and non-distended Extremity General Extremity: Negative for edema Skin no rashes or lesions noted Skin Narrative: R shoulder surg dressing in place Neuro CN's II-XII intact bilaterally Lab / Micro Data Attestation: I reviewed the patient's lab results. 03/28/25 07:26 03/28/25 07:26 Labs: Laboratory Results - last 24 hr 03/27/25 12:20: Creatinine 0.93, Estim Creat Clear Calc 71.97, Est GFR (MDRD) Non-Af 86 12/11/25 12:30: POC Glucose 119 H 03/27/25 20:54: POC Glucose 242 H 03/28/25 06:15: POC Glucose 241 H 03/28/25 07:26: WBC 6.1, RBC 4.44 L, Hgb 12.3 L, Hct 37.3 L, MCV 84.0, MCH 27.7, MCHC 33.0, RDW Std Deviation 40.7, RDW Coeff of Destiny 13.2, Plt Count 257, MPV 10.3, Sodium 136, Potassium 3.9, Chloride 101, Carbon Dioxide 22.6, Anion Gap 12, BUN 12, Creatinine 0.76, Estim Creat Clear Calc 83.67, Est GFR (MDRD) Non-Af 93, BUN/Creatinine Ratio 16.1, Glucose 212 H, Calcium 9.6 Micro: Microbiology 03/27/25 16:15 Tissue - Shoulder Gram Stain - Final 03/27/25 16:15 Tissue - Shoulder Gram Stain - Final 03/27/25 16:15 Tissue - Shoulder Gram Stain - Final 03/27/25 16:15 Tissue - Shoulder Gram Stain - Final 03/27/25 16:15 Tissue - Shoulder Gram Stain - Final Imaging Radiology Impression Shoulder X-Ray 03/27/25 17:10 IMPRESSION: Postoperative changes to the right shoulder, as described above. Reading Location: [id number]
[2025-03-28] MEDS: 0.9% Saline Lock 10 ML Syringe IV ×3 (13:32→19:53)
--- NOTE | 2025-03-28 15:48 | CHAPLAIN ---
Type of Pastoral Visit _x__ Initial Visit ___ Follow-up Visit ___ On-call Visit ___ General Patient Visit ___ Spiritual Assessment ___ Family Conference ___ Bereavement ___ Rapid Response ___ Code Blue ___ Other (describe below) Pastoral Care Referral From _x__ Patient ___ Family ___ Nurse ___ Physician ___ Gem Carver ___ Tailor'S Aide ___ Other (describe below) Sacrament/Intervention _x__ Active listening ___ Anointing ___ Congregation ___ Bereavement ___ Communion ___ Desi exploration ___ ___ Life review ___ Prayer ___ Reconciliation ___ Sacrament of Sick _x_ Supportive presence ___ Wedding ___ Other (describe below) Pastoral Comments
--- NOTE | 2025-03-28 15:49 | CASEMGMT ---
FERMIN BHATIA [place] FERMIN BHATIA into pt room, pt states he is not sure if he wants to do daily at the OP infusion or do at home. He states he is unsure if they are going to try to go to [place] for [place] or not. He states it depends on his pain level. He is aware that if he is not homebound, he does not qualify for [facility]. Discussed homebound status requirements. Pt is aware that if he chooses home and needs the infusion company to provide teaching, likely they will not be able to come same day as requested. If he should choose OP infusion center this can be set up same day. Pt wants to speak to his . He requests FERMIN BHATIA come back on Monday. Pt states he has pain medications in his system and he can't think clearly currently.
--- NOTE | 2025-03-28 16:47 | NURSING ---
This RN called [facility] and informed them of order for PICC line for this pt. Kadi CHRISTENSEN aware.
[2025-03-29] VITALS (7 sets, daily range): BP systolic 112–153; BP diastolic 57–96; PULSE 70–85; RESP 16–17; TEMP 36.7–37.2; O2SAT 95–98
[2025-03-29 02:40] LABS: Vancomycin, Trough Level 8.7 ug/mL (5.0-15.0)
[2025-03-29] MEDS: Vancomycin HCl 1,500 MG in 0.9% Normal Saline (500mL Bag) 500 ML 250 MG IV ×2 (03:27→16:04)
--- NOTE | 2025-03-29 03:33 | PCM.RX.CS ---
Consult Antibiotic Management Pharmacy has been consulted to manage selected antibiotic: Vancomycin Type of Intervention Type of Consult: Follow-up Labs Labs: Sodium 136 mmol/L (133-145) 03/28/25 07:26 Potassium 3.9 mmol/L (3.3-5.1) 03/28/25 07:26 Chloride 101 mmol/L (98-108) 03/28/25 07:26 Carbon Dioxide 22.6 mmol/L (21.0-32.0) 03/28/25 07:26 Anion Gap 12 (5-15) 03/28/25 07:26 BUN 12 mg/dL (4-19) 03/28/25 07:26 Creatinine 0.76 mg/dL (0.70-1.20) 03/28/25 07:26 Est GFR (MDRD) Non-Af 93 (>60) 03/28/25 07:26 BUN/Creatinine Ratio 16.1 RATIO (10-20) 03/28/25 07:26 Glucose 212 mg/dL (70-99) H 03/28/25 07:26 Vancomycin Trough 8.7 ug/mL (5.0-15.0) 03/29/25 02:00 Microbiology Microbiology: Microbiology 03/27/25 16:15 Tissue - Shoulder Gram Stain - Final 03/27/25 16:15 Tissue - Shoulder Gram Stain - Final 03/27/25 16:15 Tissue - Shoulder Gram Stain - Final 03/27/25 16:15 Tissue - Shoulder Gram Stain - Final 03/27/25 16:15 Tissue - Shoulder Gram Stain - Final Goal Trough Goal Trough: 15-20 mcg/mL Pharmacy Plan for Drug Dosing Pharmacy Plan for Drug Dosing: Pharmacy Service will continue to monitor and adjust dosing as required. TROUGH 8.7 @ 12.5 HOURS. INCREASE TO 1500MG Q12H AND DRAW TROUGH PRIOR TO 4TH DOSE Follow-Up Labs Follow-Up Labs: Trough: Vancomycin Date/Time Labs Ordered Labs to be done on [date and time ordered]: 03/30 @ 1430
[2025-03-29] MEDS: Aspirin E.C. 81 MG Tablet PO (08:56)
[2025-03-29] MEDS: Senna/Docusate Sodium 1 Tablet 2 TABLET PO ×2 (08:57→22:09)
[2025-03-29] MEDS: Ceftriaxone 2 GM in 0.9% Normal Saline (50mL MB+) 50 ML IV (11:21)
--- NOTE | 2025-03-29 13:18 | PCM.PN.ORT ---
Subjective Subjective Patient seen and examined. No new complaints. Reports soreness to right shoulder but pain improved from yesterday. Pain controlled with oral Tylenol and oxycodone. No fevers chills, nausea vomiting, chest pain or shortness of breath. Objective Data Objective Data Vital Signs: Vital Signs Temp Pulse Resp BP Pulse Ox O2 Del Method O2 Flow Rate 98.9 F 77 16 112/77 98 Room Air 2 03/29/25 09:24 03/29/25 09:24 03/29/25 09:24 03/29/25 09:24 03/29/25 09:24 03/29/25 09:24 03/27/25 20:35 Oxygen Flow Rate (L/min) 2 Oxygen Delivery Method Room Air Weight: 187 lb 6.287 oz Body Mass Index (BMI) 26.1 Intake & Output: Intake and Output for Last 24 Hours 03/27/25 03/28/25 03/29/25 23:59 23:59 23:59 Intake Total 1586.5 / 1586.5 900 / 900 580 / 580 Output Total 200 / 200 Balance 1386.5 / 1386.5 900 / 900 580 / 580 Lab / Micro Data 03/28/25 07:26 03/28/25 07:26 Labs: Laboratory Results - last 24 hr 03/28/25 16:30: POC Glucose 255 H 03/28/25 20:01: POC Glucose 180 H 03/29/25 02:00: Vancomycin Trough 8.7 03/29/25 06:25: POC Glucose 164 H 03/29/25 11:31: POC Glucose 211 H Micro: Microbiology 03/27/25 16:15 Tissue - Shoulder Gram Stain - Final 03/27/25 16:15 Tissue - Shoulder Gram Stain - Final 03/27/25 16:15 Tissue - Shoulder Gram Stain - Final 03/27/25 16:15 Tissue - Shoulder Gram Stain - Final 03/27/25 16:15 Tissue - Shoulder Gram Stain - Final Physical Exam Narrative General - A&Ox3, NAD. Right upper Extremity - SILT & 5/5 in radial, ulnar, musculocutaneous, axillary, and median nerve distributions. Radial, ulnar pulses 2+. Compartments soft and compressible. BCR in finger tips. Incisional dressing C/D/I. 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 Pain better controlled. -Continue IV antibiotics. Cultures pending but Synovasure shows markers of C acnes. - Pain control -continue Tylenol and oxycodone, Dilaudid for breakthrough - Medicine following for medical management -Infectious disease following. Plan for 6 weeks of IV ceftriaxone. PICC line is in place. - PT/OT - DVT PPX -Multimodal with early mobilization, SCDs, aspirin 81 mg - Case management - D/C planning. Plan for likely discharge 2024 once infusions are arranged.
[2025-03-29] MEDS: 0.9% Normal Saline (250mL Bag) 250 ML 15 ML IV (22:21)
[2025-03-30] VITALS (7 sets, daily range): BP systolic 128–145; BP diastolic 74–99; PULSE 71–91; RESP 16–18; TEMP 36.4–37.3; O2SAT 94–99
[2025-03-30] MEDS: Vancomycin HCl 1,500 MG in 0.9% Normal Saline (500mL Bag) 500 ML 250 MG IV (02:09)
[2025-03-30] MEDS: Ceftriaxone 2 GM in 0.9% Normal Saline (50mL MB+) 50 ML IV (08:27)
[2025-03-30] MEDS: Aspirin E.C. 81 MG Tablet PO (08:28)
[2025-03-30] MEDS: Senna/Docusate Sodium 1 Tablet 2 TABLET PO ×2 (08:29→22:46)
[2025-03-30 14:41] LABS: Vancomycin, Trough Level 13.0 ug/mL (5.0-15.0)
[2025-03-30 14:43] LABS: Estimated Creatinine Clearance 83.67 ml/min (50-250)
--- NOTE | 2025-03-30 14:54 | PCM.RX.CS ---
Consult Antibiotic Management Pharmacy has been consulted to manage selected antibiotic: Vancomycin Type of Intervention Type of Consult: Follow-up Prior Doses of Antibiotics Prior Doses of Antibiotics Received/Current Regimen: current dose is 1500mg IV q12h Labs Labs: Sodium 136 mmol/L (133-145) 03/28/25 07:26 Potassium 3.9 mmol/L (3.3-5.1) 03/28/25 07:26 Chloride 101 mmol/L (98-108) 03/28/25 07:26 Carbon Dioxide 22.6 mmol/L (21.0-32.0) 03/28/25 07:26 Anion Gap 12 (5-15) 03/28/25 07:26 BUN 12 mg/dL (4-19) 03/28/25 07:26 Creatinine 0.76 mg/dL (0.70-1.20) 03/30/25 14:10 Est GFR (MDRD) Non-Af 93 (>60) 03/30/25 14:10 BUN/Creatinine Ratio 16.1 RATIO (10-20) 03/28/25 07:26 Glucose 212 mg/dL (70-99) H 03/28/25 07:26 Vancomycin Trough 13.0 ug/mL (5.0-15.0) 03/30/25 14:10 Microbiology Microbiology: Microbiology 03/27/25 16:15 Tissue - Shoulder Gram Stain - Final 03/27/25 16:15 Tissue - Shoulder Wound Culture - Preliminary Gram positive tony 03/27/25 16:15 Tissue - Shoulder Anaerobic Culture - Preliminary Checking for anaerobes, further studies to follow. 03/27/25 16:15 Tissue - Shoulder Gram Stain - Final 03/27/25 16:15 Tissue - Shoulder Wound Culture - Preliminary Gram positive tony 03/27/25 16:15 Tissue - Shoulder Gram Stain - Final 03/27/25 16:15 Tissue - Shoulder Wound Culture - Preliminary Gram positive tony 03/27/25 16:15 Tissue - Shoulder Gram Stain - Final 03/27/25 16:15 Tissue - Shoulder Wound Culture - Final No growth aerobically. 03/27/25 16:15 Tissue - Shoulder Anaerobic Culture - Preliminary Checking for anaerobes, further studies to follow. 03/27/25 16:15 Tissue - Shoulder Gram Stain - Final 03/27/25 16:15 Tissue - Shoulder Wound Culture - Final No growth aerobically. 03/27/25 16:15 Tissue - Shoulder Anaerobic Culture - Preliminary No growth in 48 hours. Dosing Weight Weight used for dosin kg Estimated Creatinine Clearance Estimated Creatinine Clearance: 84 ml/min Goal Trough Goal Trough: 15-20 mcg/mL Pharmacy Plan for Drug Dosing Pharmacy Plan for Drug Dosing: The vanc trough drawn at 14:10 today (approx 12 hours after the previous dose) was 13.0 mcg/ml. This is still below goal so will increase dose slightly to 1750mg q12h. Repeat a trough before the 4th dose. Pharmacy Service will continue to monitor and adjust dosing as required. Follow-Up Labs Follow-Up Labs: Trough: Vancomycin Date/Time Labs Ordered Labs to be done on [date and time ordered]: 04/01/25 03:30
[2025-03-30] MEDS: Vancomycin HCl 1,750 MG in 0.9% Normal Saline (500mL Bag) 500 ML 250 MG IV (15:48)
--- NOTE | 2025-03-30 17:10 | PCM.PN.ORT ---
Subjective Subjective Patient seen and examined.Denies any new complaints. Pain controlled with oral Tylenol and oxycodone. Denies fevers, chills, nausea vomiting, chest pain shortness of breath. Objective Data Objective Data Vital Signs: Vital Signs Temp Pulse Resp BP Pulse Ox O2 Del Method O2 Flow Rate 97.6 F L 76 16 129/82 H 94 Room Air 2 03/30/25 16:00 03/30/25 16:00 03/30/25 16:00 03/30/25 16:00 03/30/25 16:00 03/30/25 16:00 03/27/25 20:35 Oxygen Flow Rate (L/min) 2 Oxygen Delivery Method Room Air Weight: 187 lb 6.287 oz Body Mass Index (BMI) 26.1 Intake & Output: Intake and Output for Last 24 Hours 03/28/25 03/29/25 03/30/25 23:59 23:59 23:59 Intake Total 900 / 900 1110 / 1110 1130 / 1130 Balance 900 / 900 1110 / 1110 1130 / 1130 Lab / Micro Data 03/28/25 07:26 03/30/25 14:10 Labs: Laboratory Results - last 24 hr 03/29/25 22:13: POC Glucose 222 H 03/30/25 06:49: POC Glucose 168 H 03/30/25 11:31: POC Glucose 278 H 03/30/25 14:10: Creatinine 0.76, Estim Creat Clear Calc 83.67, Est GFR (MDRD) Non-Af 93, Vancomycin Trough 13.0 03/30/25 15:46: POC Glucose 155 H Micro: Microbiology 03/27/25 16:15 Tissue - Shoulder Gram Stain - Final 03/27/25 16:15 Tissue - Shoulder Wound Culture - Preliminary Gram positive tony 03/27/25 16:15 Tissue - Shoulder Anaerobic Culture - Preliminary Checking for anaerobes, further studies to follow. 03/27/25 16:15 Tissue - Shoulder Gram Stain - Final 03/27/25 16:15 Tissue - Shoulder Wound Culture - Preliminary Gram positive tony 03/27/25 16:15 Tissue - Shoulder Gram Stain - Final 03/27/25 16:15 Tissue - Shoulder Wound Culture - Preliminary Gram positive tony 03/27/25 16:15 Tissue - Shoulder Gram Stain - Final 03/27/25 16:15 Tissue - Shoulder Wound Culture - Final No growth aerobically. 03/27/25 16:15 Tissue - Shoulder Anaerobic Culture - Preliminary Checking for anaerobes, further studies to follow. 03/27/25 16:15 Tissue - Shoulder Gram Stain - Final 03/27/25 16:15 Tissue - Shoulder Wound Culture - Final No growth aerobically. 03/27/25 16:15 Tissue - Shoulder Anaerobic Culture - Preliminary No growth in 48 hours. Physical Exam Narrative General - A&Ox3, NAD. Right upper Extremity - SILT & 5/5 in radial, ulnar, musculocutaneous, axillary, and median nerve distributions. Radial, ulnar pulses 2+. Compartments soft and compressible. BCR in finger tips. Incisional dressing C/D/I. 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 Otherwise doing fine. -Continue IV antibiotics. Cultures pending but Synovasure shows markers of C acnes. - Pain control -continue Tylenol and oxycodone, Dilaudid for breakthrough - Medicine following for medical management -Infectious disease following. Plan for 6 weeks of IV ceftriaxone. PICC line is in place. - DVT PPX -Multimodal with early mobilization, SCDs, aspirin 81 mg - Case management - D/C planning. Plan for likely discharge 2024 once infusions are arranged.
[2025-03-31 01:22] VITALS: BP 162/99; PULSE 71; RESP 18; TEMP 36.4; O2SAT 99
[2025-03-31] MEDS: Vancomycin HCl 1,750 MG in 0.9% Normal Saline (500mL Bag) 500 ML 250 MG IV (04:03)
[2025-03-31 04:11] VITALS: BP 168/98; PULSE 80; RESP 18; TEMP 37; O2SAT 98
[2025-03-31 06:57] LABS: Hematocrit 31.0 % (40-54); Hemoglobin 10.2 g/dL (13.0-16.5); Immature Granulocytes Count 0.040 X10^3/uL (0.0-0.0); Mean Corp Hgb Conc 32.9 g/dL (32-36); Mean Corpuscular Volume 84.7 fL (80-94); Mean Platelet Vol. 10.4 fl (6.2-12.0); NRBC Flagged by Analyzer 0 % (0-5); Platelet Count 216 K/mm3 (150-450); RBC Distribution Width CV 13.4 % (11.6-14.6); RBC Distribution Width SD 41.6 fl (35.1-43.9); Red Blood Count 3.66 M/mm3 (4.6-6.2); White Blood Count 4.4 K/mm3 (4.4-11.0)
[2025-03-31 07:14] LABS: Anion Gap 9 (5-15); BUN 10 mg/dL (4-19); BUN/Creat Ratio 13.4 RATIO (10-20); Calcium,Total 9.3 mg/dL (7.6-11.0); Carbon Dioxide 24.2 mmol/L (21.0-32.0); Chloride 102 mmol/L (98-108); Estimated Creatinine Clearance 83.67 ml/min (50-250); Glucose 165 mg/dL (70-99); Potassium 3.6 mmol/L (3.3-5.1)
[2025-03-31 08:18] VITALS: BP 140/87; PULSE 79; RESP 16; TEMP 36.6; O2SAT 99
[2025-03-31] MEDS: Aspirin E.C. 81 MG Tablet PO (08:27)
[2025-03-31 09:50] VITALS: PULSE 79
[2025-03-31] MEDS: Senna/Docusate Sodium 1 Tablet 2 TABLET PO (09:50)
[2025-03-31] MEDS: Ceftriaxone 2 GM in 0.9% Normal Saline (50mL MB+) 50 ML IV (09:55)
--- NOTE | 2025-03-31 10:59 | PN_ITS ---
Subjective Subjective Patient seen and examined with his nurse by his bedside. His was by his bedside. He complained of some pain in his right shoulder but said it was well- controlled at home. Review of systems otherwise negative. He has been hemodynamically stable. Objective Data Objective Data Vital Signs: Vital Signs Temp Pulse Resp BP Pulse Ox O2 Del Method O2 Flow Rate 97.9 F 79 16 140/87 H 99 Room Air 2 03/31/25 08:18 03/31/25 09:50 03/31/25 08:18 03/31/25 08:18 03/31/25 08:18 03/31/25 08:18 03/27/25 20:35 Oxygen Flow Rate (L/min) 2 Oxygen Delivery Method Room Air Weight: 187 lb 6.287 oz Body Mass Index (BMI) 26.1 Intake & Output: Intake and Output for Last 24 Hours 03/29/25 03/30/25 03/31/25 23:59 23:59 23:59 Intake Total 1110 / 1110 2064 / 2064 535 / 535 Balance 1110 / 1110 2064 / 2064 535 / 535 Lab / Micro Data 03/31/25 06:43 03/31/25 06:43 Labs: Laboratory Results - last 24 hr 03/30/25 11:31: POC Glucose 278 H 03/30/25 14:10: Creatinine 0.76, Estim Creat Clear Calc 83.67, Est GFR (MDRD) Non-Af 93, Vancomycin Trough 13.0 03/30/25 15:46: POC Glucose 155 H 03/30/25 22:39: POC Glucose 231 H 03/31/25 06:43: WBC 4.4, RBC 3.66 L, Hgb 10.2 L, Hct 31.0 L, MCV 84.7, MCH 27.9, MCHC 32.9, RDW Std Deviation 41.6, RDW Coeff of Destiny 13.4, Plt Count 216, MPV 10.4, Immature Gran % (Auto) 0.900, Neut % (Auto) 58.9, Lymph % (Auto) 23.8, M aron % (Auto) 13.4 H, Eos % (Auto) 2.3, Baso % (Auto) 0.7, Absolute Neuts (auto) 2.6, Absolute Lymphs (auto) 1.05, Nucleated RBC % 0, Sodium 135, Potassium 3.6, Chloride 102, Carbon Dioxide 24.2, Anion Gap 9, BUN 10, Creatinine 0.76, Estim Creat Clear Calc 83.67, Est GFR (MDRD) Non-Af 93, BUN/Creatinine Ratio 13.4, G lucose 165 H, Calcium 9.3 03/31/25 06:48: POC Glucose 156 H Micro: Microbiology 03/27/25 16:15 Tissue - Shoulder Gram Stain - Final 03/27/25 16:15 Tissue - Shoulder Wound Culture - Final Cutibacterium acnes 03/27/25 16:15 Tissue - Shoulder Gram Stain - Final 03/27/25 16:15 Tissue - Shoulder Wound Culture - Final Cutibacterium acnes 03/27/25 16:15 Tissue - Shoulder Gram Stain - Final 03/27/25 16:15 Tissue - Shoulder Wound Culture - Final Cutibacterium acnes 03/27/25 16:15 Tissue - Shoulder Anaerobic Culture - Preliminary Checking for anaerobes, further studies to follow. 03/27/25 16:15 Tissue - Shoulder Gram Stain - Final 03/27/25 16:15 Tissue - Shoulder Wound Culture - Final No growth aerobically. 03/27/25 16:15 Tissue - Shoulder Anaerobic Culture - Preliminary Checking for anaerobes, further studies to follow. 03/27/25 16:15 Tissue - Shoulder Gram Stain - Final 03/27/25 16:15 Tissue - Shoulder Wound Culture - Final No growth aerobically. 03/27/25 16:15 Tissue - Shoulder Anaerobic Culture - Preliminary No growth in 48 hours. Physical Exam Const alert, oriented x3 and no apparent distress General Appearance: cooperative HEENT normocephalic, head/scalp atraumatic, moist oral mucous membranes and oropharynx normal Eyes EOMs intact bilaterally Neck supple and no JVD Lymph Lymphatic: no lymphedema noted Resp normal respiratory effort, normal air movement and clear to auscultation bilaterally Cardio regular rate, regular rhythm, S1 normal heart sound, S2 normal heart sound and no murmurs GI normal to inspection, nondistended, normoactive bowel sounds, soft to palpation, non-tender and non-distended Extremity Extremity Narrative: RUE in sling Skin General Skin Exam: no breakdown Neuro no focal motor deficits Motor Exam: strength 5/5 throughout Psych thought process normal, cooperative and affect normal Appearance: appropriate Assessment & Plan Assessment/Plan (1) 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 * Management as per orthopedics per primary service. On broad-spectrum antibiotics and ID also on board. * #Type 2 diabetes mellitus: * Metformin on hold. * Insulin sliding Scale. Accu-Cheks ACHS. 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 Charges/Coding Visit Charges Inpatient E&M: 42297 Subs Hosp L2
--- NOTE | 2025-03-31 11:12 | CASEMGMT ---
FERMIN BHATIA into pt room, pt visiting with two friends, pt agreeable to discussion with visitors present. Pt states he and his have chosen outpt infusion center for IV atb. He states they prefer late afternoon. TC to [facility] infusion, spoke with Lara, pt set up for 10am tomorrow morning. FERMIN BHATIA into pt room, pt is aware of this information as well as that they will give him the rest of the times at tomorrow's visit. Pt denies any further homegoing needs.
--- NOTE | 2025-03-31 12:18 | DCINST_ITS ---
Discharge Instructions DC O2, CPAP, BIPAP needs Home O2 Discharge instructions: No Dressing / Incision Discharge Activity: May Shower Weight Bearing Status: Weight bearing as tolerated Dressing / Incision Call your doctor if your incision/area has: Continuous Slow Oozing, Sudden Increased Bleeding, Increased Pain/ Swelling, Increased Redness, Foul Smelling Discharge and Swelling at the incision site Call your doctor if you observe: Fever of 101 or Higher, Inability to urinate, Inability to have a bowel movement, Shortness of breath, Dizziness, Chest pain, Increased palpitations (irregular heartbeat), Calf discomfort and Uncontrolled pain Remove Dressing in: 1 week Cleanse incision/area with: Soap & Water and Keep Dressing Clean & Dry Follow Up Care When: with [facility] in 2 weeks follow up with Infectious disease in 2-3 weeks Test Results: Test results from this visit will be discussed in further detail at your follow- up appointment, if applicable. Discharge Plan Admission Admit Date/Time: 03/27/25 16:59 Attending Provider: Major Yi Primary Care Provider: Miguelito Saul Consulting Providers: Chad Ferrari; Alisson Hernandez Discharge Orders/Prescriptions Prescriptions: New ceftriaxone 2 gram recon soln 2 g IV DAILY 42 Days Rx Instructions: Stop date 05/08/25. Dx: R shoulder PJI. Weekly bmp, cbc, LFT, and esr. Fax to [phone]. Routine picc care per protocol. No Action metformin 500 mg tablet 500 mg PO BID metoprolol tartrate 25 mg tablet 25 mg PO BID cholecalciferol (vitamin D3) 25 mcg (1,000 unit) tablet 4,000 unit PO DAILY cyanocobalamin (vitamin B-12) 1,000 mcg capsule 500 mcg PO DAILY losartan 100 mg tablet 100 mg PO QHS allopurinol 300 mg tablet 300 mg PO BID aspirin 81 MG tablet 81 mg PO DAILY@0800 tamsulosin 0.4 mg capsule 0.4 mg PO DAILY ezetimibe 10 mg tablet 10 mg PO DAILY Qty: 180 3RF Praluent Pen 75 mg/mL pen injector 150 mg subcut Q2W Rx Instructions: inject into abdomen, thigh, or upper arm (deltoid muscle); [facility] Referrals / Follow Up: Miguelito Saul MD [Primary Care Provider, Family Practice]
--- NOTE | 2025-03-31 12:22 | PCM.DC.SUM ---
Providers Date of Admission: 03/27/25 Date of Discharge: 03/31/25 Primary Care Physician: Dr. Miguelito Saul MD Consultations 03/27/25 16:59 Consult: Infectious Disease Routine Consulting Provider: Chad Ferrari Reason for Consult: right shoulder prosthetic joint infection, s/p explant, antibiotic spacer EMERGENT Consult: No Notified: Yes Date Notified: 03/27/25 Time Notified: 18:06 Method of Notification: Text 03/27/25 17:07 Consult: Hospitalist Routine Consulting Provider: Arabella Chris Reason for Consult: medical management s/p R shoulder I&D, explant, antibiotic spacer EMERGENT Consult: No Notified: Yes Date Notified: 03/27/25 Time Notified: 17:07 Method of Notification: Text Reason For Visit: RIGHT SHOULDER PROSTHETIC JOINT INFECTION Diagnosis Discharge Diagnosis (1) 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 Yi 03/27/25. - medically patient is stable, restarting losartan and home meds. - Infectious disease recommendations: cultures +C.acnes. continues with vanc/ ceftriaxone. PICC placed and recommend 6 weeks IV ceftriaxone daily with weekly labs. recommend follow up outpatient in 2-3 weeks. this will need to be arranged. - sling to right upper extremity at all times, ok to remove to bathe and change. he is to work on pendulums and elbow ROM only. NWB to right upper extremity. - no scheduled PT/OT at this time -DVT prophylaxis aspirin 81mg BID x 2 weeks, mobilization - ok to d/c dressing 1 week post op - pain control tylenol 1000mg TID , oxycodone 5-10mg every 4-6 hours prn. ice prn - Follow Up: 2 weeks [facility] - case management assisting discharge with arranging infusion ABX plan. he has an appointment at 10AM tomorrow 04/01/25 (2) Essential hypertension: Status: Chronic Code(s): I10 - Essential (primary) hypertension (3) Hyperlipidemia: Status: Chronic Code(s): E78.5 - Hyperlipidemia, unspecified Qualifiers: Hyperlipidemia type: unspecified Qualified Code(s): E78.5 - Hyperlipidemia, unspecified (4) Type 2 diabetes mellitus without complications: Status: Chronic Code(s): E11.9 - Type 2 diabetes mellitus without complications Medications at Discharge Home Medications aspirin 81 mg tablet,delayed release 81 mg PO DAILY@0800 HEART 06/09/13 Held on 03/31/25. Instructions: Resume on 04/14/25. metoprolol tartrate 25 mg tablet 25 mg PO BID HYPERTENSION 05/10/17 metformin 500 mg tablet 500 mg PO BID DIABETES 05/11/17 ezetimibe 10 mg tablet 10 mg PO DAILY CHOLESTEROL #180 tabs 10/02/17 cholecalciferol (vitamin D3) 25 mcg (1,000 unit) tablet 4,000 unit PO DAILY SUPPLEMENT 01/21/20 cyanocobalamin (vitamin B-12) 1,000 mcg capsule 500 mcg PO DAILY SUPPLEMENT 01/21/20 alirocumab 75 mg/mL subcutaneous pen injector (Praluent Pen) 150 mg subcut Q2W LDL 03/26/21 losartan 100 mg tablet 100 mg PO QHS HYPERTENSION 02/08/22 allopurinol 300 mg tablet 300 mg PO BID GOUT 04/04/24 tamsulosin 0.4 mg capsule 0.4 mg PO DAILY dificulty urinating 03/26/25 ceftriaxone 2 gram intravenous solution 2 g IV DAILY 42 days 03/28/25 acetaminophen 500 mg tablet 1,000 mg (2 x 500 mg) PO Q8 #180 tabs 03/31/25 aspirin 81 mg tablet,delayed release 81 mg PO BID 2 weeks #28 tabs 03/31/25 oxycodone 5 mg tablet 5 - 10 mg (1 - 2 x 5 mg) PO .q4-6hrs prn PRN Pain Score 4-10 7 days #42 tabs 03/31/25 sennosides 8.6 mg-docusate sodium 50 mg tablet (Stimulant Laxative Plus) 2 tab PO BID #14 tabs 03/31/25 Hospital Course Procedures - (Right reverse total shoulder arthroplasty revision with explantation, irrigation and debridement and placement of articulating antibiotic spacer) Summary of Care Provided Hospital Course: Patient is Right reverse total shoulder arthroplasty revision with explantation, irrigation and debridement and placement of articulating antibiotic spacer. Patient has had a stable postoperative course. Labs are stable patient medically stable and resumed home medications. He has been consulted to see infectious disease for recommendations for antibiotics. PICC line was placed 03/28/2025. Infectious diseases recommending 6 weeks IV ceftriaxone once daily. Patient's pain remains well-controlled.. Afebrile, no chest pain, shortness of breath, negative calf pain/ erythema, and no other signs of DVT. Physical Exam Narrative Patient resting comfortably in bed Sling in place to right upper extremity No signs of acute distress Satting well on room air Limb is warm to touch, Sensation intact throughout entire upper extremity, Radial pulses bounding Intact to radial, median, ulnar nerve distribution Dressing clear dry intact Calf nontender to palpation, no erythema, no edema. Negative Homans Weight / BMI Weight Weight: 85 kg Body Mass Index (BMI) 26.1 ABG / Lab / Microbiology Data 03/31/25 06:43 03/31/25 06:43 Laboratory: Laboratory Results - last 24 hr 03/30/25 14:10: Creatinine 0.76, Estim Creat Clear Calc 83.67, Est GFR (MDRD) Non-Af 93, Vancomycin Trough 13.0 03/30/25 15:46: POC Glucose 155 H 03/30/25 22:39: POC Glucose 231 H 03/31/25 06:43: WBC 4.4, RBC 3.66 L, Hgb 10.2 L, Hct 31.0 L, MCV 84.7, MCH 27.9, MCHC 32.9, RDW Std Deviation 41.6, RDW Coeff of Destiny 13.4, Plt Count 216, MPV 10.4, Immature Gran % (Auto) 0.900, Neut % (Auto) 58.9, Lymph % (Auto) 23.8, [place] % (Auto) 13.4 H, Eos % (Auto) 2.3, Baso % (Auto) 0.7, Absolute Neuts (auto) 2.6, Absolute Lymphs (auto) 1.05, Nucleated RBC % 0, Sodium 135, Potassium 3.6, Chloride 102, Carbon Dioxide 24.2, Anion Gap 9, BUN 10, Creatinine 0.76, Estim Creat Clear Calc 83.67, Est GFR (MDRD) Non-Af 93, BUN/Creatinine Ratio 13.4, Glucose 165 H, Calcium 9.3 03/31/25 06:48: POC Glucose 156 H 03/31/25 10:39: POC Glucose 221 H Microbiology: Microbiology 03/27/25 16:15 Tissue - Shoulder Gram Stain - Final 03/27/25 16:15 Tissue - Shoulder Wound Culture - Final Cutibacterium acnes 03/27/25 16:15 Tissue - Shoulder Gram Stain - Final 03/27/25 16:15 Tissue - Shoulder Wound Culture - Final Cutibacterium acnes 03/27/25 16:15 Tissue - Shoulder Gram Stain - Final 03/27/25 16:15 Tissue - Shoulder Wound Culture - Final Cutibacterium acnes 03/27/25 16:15 Tissue - Shoulder Anaerobic Culture - Preliminary Checking for anaerobes, further studies to follow. 03/27/25 16:15 Tissue - Shoulder Gram Stain - Final 03/27/25 16:15 Tissue - Shoulder Wound Culture - Final No growth aerobically. 03/27/25 16:15 Tissue - Shoulder Anaerobic Culture - Preliminary Checking for anaerobes, further studies to follow. 03/27/25 16:15 Tissue - Shoulder Gram Stain - Final 03/27/25 16:15 Tissue - Shoulder Wound Culture - Final No growth aerobically. 03/27/25 16:15 Tissue - Shoulder Anaerobic Culture - Preliminary No growth in 48 hours. D/C Instructions Discharge Activity: May Shower Weight Bearing Status: No weight bearing (To right upper extremity) Additional Activity Instructions: Pendulums and elbow range of motion only Call your doctor if your incision/area has: Continuous Slow Oozing, Sudden Increased Bleeding, Increased Pain/ Swelling, Increased Redness, Foul Smelling Discharge and Swelling at the incision site Call your doctor if you observe: Fever of 101 or Higher, Inability to urinate, Inability to have a bowel movement, Shortness of breath, Dizziness, Chest pain, Increased palpitations (irregular heartbeat), Calf discomfort and Uncontrolled pain Remove Dressing in: 1 week Cleanse incision/area with: Soap & Water and Keep Dressing Clean & Dry DC O2, CPAP, BIPAP Needs Home O2 Discharge instructions: No DC home with Oxygen: No When: with [facility] in 2 weeks follow up with Infectious disease in 2-3 weeks Meaningful Use Info Meaningful Use Meaningful Use Diagnoses (Choose all that apply): None applicable Discharge Plan Admission Admit Date/Time: 03/27/25 16:59 Attending Provider: Major Yi Primary Care Provider: Miguelito Saul Consulting Providers: Chad Ferrari; Alisson Hernandez Discharge Orders/Prescriptions Prescriptions: New ceftriaxone 2 gram recon soln 2 g IV DAILY 42 Days Rx Instructions: Stop date 05/08/25. Dx: R shoulder PJI. Weekly bmp, cbc, LFT, and esr. Fax to [phone]. Routine picc care per protocol. acetaminophen 500 mg Tablet 1,000 mg PO Q8 Qty: 180 0RF aspirin 81 mg Tablet,Delayed Release (Dr/Ec) 81 mg PO BID 14 Days Qty: 28 0RF oxycodone 5 mg Tablet 5 - 10 mg PO .q4-6hrs prn PRN (Reason: Pain Score 4-10) 7 Days Qty: 42 0RF sennosides-docusate sodium [Stimulant Laxative Plus] 8.6-50 mg Tablet 2 tab PO BID Qty: 14 0RF Continued metformin 500 mg tablet 500 mg PO BID metoprolol tartrate 25 mg tablet 25 mg PO BID cholecalciferol (vitamin D3) 25 mcg (1,000 unit) tablet 4,000 unit PO DAILY cyanocobalamin (vitamin B-12) 1,000 mcg capsule 500 mcg PO DAILY losartan 100 mg tablet 100 mg PO QHS allopurinol 300 mg tablet 300 mg PO BID tamsulosin 0.4 mg capsule 0.4 mg PO DAILY ezetimibe 10 mg tablet 10 mg PO DAILY Qty: 180 3RF Praluent Pen 75 mg/mL pen injector 150 mg subcut Q2W Rx Instructions: inject into abdomen, thigh, or upper arm (deltoid muscle); rotate [facility] aspirin 81 MG tablet 81 mg PO DAILY@0800 Hold Instructions: Resume on 04/14/25. Referrals / Follow Up: Miguelito Saul MD [Primary Care Provider, Family Practice] Disposition Disposition (needs filled in before D/C Order can be placed): Home, Self Care
--- NOTE | 2025-03-31 13:39 | PN.ID_ITS ---
Physical Exam Narrative Feeling better, pain controlled, no fever, no n/v/d, no issues with picc. 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 acnes. Taken to OR 03/27/[address] Yi for I&D and spacer placement. Surg cx showing GPR. Will stop vanc. Wrote for picc and 6 weeks iv ceftriaxone daily with weekly labs, ID followup in 2-3 weeks. D/w comp field case manager. Will follow
== END 2025-03-31 14:01 | disposition home or self-care (01) | DRG 483 ==
LOC: MS3 17:13
PROVIDERS: Anesthesiology; Admitting Provider Student in an Organized Health Care Education/Training Program; PCP Family Medicine; Referring Provider Student in an Organized Health Care Education/Training Program; Visit Provider Student in an Organized Health Care Education/Training Program
PROC: 0RRJ00Z Replacement of Right Shoulder Joint with Reverse Ball and Socket Synthetic Substitute, Open Approach (ICD-10-PCS; principal; 2025-03-27 14:15)
DX: T84.59XA Infection and inflammatory reaction due to other internal joint prosthesis, initial encounter (principal); N13.8 Other obstructive and reflux uropathy; E11.9 Type 2 diabetes mellitus without complications; I10 Essential (primary) hypertension; E78.5 Hyperlipidemia, unspecified; I25.10 Atherosclerotic heart disease of native coronary artery without angina pectoris; M12.511 Traumatic arthropathy, right shoulder; I25.2 Old myocardial infarction; Z79.84 Long term (current) use of oral hypoglycemic drugs; Z79.82 Long term (current) use of aspirin; Z95.5 Presence of coronary angioplasty implant and graft; N40.1 Benign prostatic hyperplasia with lower urinary tract symptoms; Z96.611 Presence of right artificial shoulder joint; Y83.8 Other surgical procedures as the cause of abnormal reaction of the patient, or of later complication, without mention of misadventure at the time of the procedure
CPT/HCPCS: 36415; 36569; 73030; 80048; 80202; 82565; 82962; 83735; 85025; 85027; 87015; 87070; 87075; 87077; 87102; 87116; 87176; 87205; 87206; 89050; 89051; 89060; 94668; A4216; J0696; J2405; J3260; J3475

== ENCOUNTER 2025-04-01 09:38 | Outpatient (CLI) | payer MEDICARE, OTHER, SELFPAY ==
[2025-04-01 09:50] VITALS: BP 137/77; PULSE 72; RESP 14; TEMP 36; O2SAT 93; BMI 27.1
[2025-04-01] MEDS: Ceftriaxone 2 GM in 0.9% Normal Saline (50mL MB+) 50 ML IV (10:16)
[2025-04-01] MEDS: 0.9% NaCl PICC Flush IV (11:08)
[2025-04-01 11:12] VITALS: BP 132/75; PULSE 70
== END 2025-04-01 23:59 | disposition home or self-care (01) ==
PROVIDERS: PCP Family Medicine; Referring Provider Internal Medicine Infectious Disease; Visit Provider Internal Medicine Infectious Disease
DX: T84.59XA Infection and inflammatory reaction due to other internal joint prosthesis, initial encounter (principal)
CPT/HCPCS: 96365; A4216; J0696

== ENCOUNTER 2025-04-02 10:56 | Outpatient (CLI) | payer MEDICARE, OTHER, SELFPAY ==
[2025-04-02 11:06] VITALS: BP 127/89; PULSE 106; RESP 16; TEMP 36.9; O2SAT 95
[2025-04-02] MEDS: 0.9% NaCl PICC Flush IV ×2 (11:11→12:08)
[2025-04-02] MEDS: Ceftriaxone 2 GM in 0.9% Normal Saline (50mL MB+) 50 ML IV (11:13)
[2025-04-02 12:11] VITALS: BP 129/65; PULSE 76; RESP 16; TEMP 36.5
== END 2025-04-02 23:59 | disposition home or self-care (01) ==
LOC: MEDOUTP 10:56
PROVIDERS: PCP Family Medicine; Referring Provider Internal Medicine Infectious Disease; Visit Provider Internal Medicine Infectious Disease
DX: T84.59XA Infection and inflammatory reaction due to other internal joint prosthesis, initial encounter (principal)
CPT/HCPCS: 96365; A4216; J0696

== ENCOUNTER 2025-04-03 11:48 | Outpatient (CLI) | payer MEDICARE, OTHER, SELFPAY ==
[2025-04-03 11:55] VITALS: BP 120/81; PULSE 67; RESP 16; TEMP 36.4; O2SAT 93; BMI 27.1
[2025-04-03] MEDS: Ceftriaxone 2 GM in 0.9% Normal Saline (50mL MB+) 50 ML IV (11:59)
[2025-04-03] MEDS: 0.9% NaCl PICC Flush IV ×2 (11:59→12:57)
[2025-04-03] MEDS: 0.9% NaCl IVPB Med Flush (100mL) 15 ML IV (12:03)
[2025-04-03 12:59] VITALS: BP 118/80; PULSE 67; RESP 16; TEMP 36.5; O2SAT 94
== END 2025-04-03 23:59 | disposition home or self-care (01) ==
LOC: MEDOUTP 11:48
PROVIDERS: PCP Family Medicine; Referring Provider Internal Medicine Infectious Disease; Visit Provider Internal Medicine Infectious Disease
DX: T84.59XA Infection and inflammatory reaction due to other internal joint prosthesis, initial encounter (principal)
CPT/HCPCS: 96365; A4216; J0696

== ENCOUNTER 2025-04-04 11:28 | Outpatient (CLI) | payer MEDICARE, OTHER, SELFPAY ==
[2025-04-04] MEDS: 0.9% NaCl PICC Flush IV ×2 (11:40→12:50)
[2025-04-04] MEDS: 0.9% NaCl IVPB Med Flush (250 mL) 15 ML IV (11:40)
[2025-04-04] MEDS: Ceftriaxone 2 GM in 0.9% Normal Saline (50mL MB+) 50 ML IV (11:41)
[2025-04-04 11:49] VITALS: BP 153/76; PULSE 72; RESP 16; TEMP 35.8; O2SAT 95; BMI 27.1
[2025-04-04 12:50] VITALS: BP 120/71; PULSE 75; RESP 16; O2SAT 94
== END 2025-04-04 23:59 | disposition home or self-care (01) ==
LOC: MEDOUTP 11:28
PROVIDERS: PCP Family Medicine; Referring Provider Internal Medicine Infectious Disease; Visit Provider Internal Medicine Infectious Disease
DX: T84.59XA Infection and inflammatory reaction due to other internal joint prosthesis, initial encounter (principal)
CPT/HCPCS: 96365; A4216; J0696

== ENCOUNTER 2025-04-05 12:54 | Outpatient (CLI) | payer MEDICARE, OTHER, SELFPAY ==
[2025-04-05 12:45] VITALS: BP 158/85; PULSE 71; RESP 18; TEMP 36.4; O2SAT 99
[2025-04-05] MEDS: Ceftriaxone 2 GM in 0.9% Normal Saline (50mL MB+) 50 ML IV (12:45)
[2025-04-05] MEDS: 0.9% NaCl IVPB Med Flush (250 mL) 15 ML IV (12:46)
[2025-04-05] MEDS: 0.9% NaCl PICC Flush IV ×2 (12:46→13:25)
--- OUTSIDE RECORDS SUMMARY | 2025-04-05 12:58 | XMS RPT_ITS | CCD ---
Author Organization [facility] Care Team Providers Care Pump House Engineer Name Role Phone FERMIN Blunt, Bailey Keller Unavailable Georgette Oliva Unavailable Unavailable Georgette Tabor Unavailable Unavailable Dr. Armond Saul Primary Care Provider [phone] Dr. Armond Saul Referring Provider Dr. Nathan Purcell Attending Provider [phone] Doyle Sandoval Attending Provider [phone] Collette C D AREA SUPERVISOR, C D AREA SUPERVISOR-Luna Grant Attending Provider Dr. Armond Saul Primary Care Provider [phone] Dr. Armond Saul Referring Provider Víctor C D AREA SUPERVISOR, C D AREA SUPERVISOR-Luna Solano Attending Provider Dr. Nathan Purcell Attending Provider [phone] Nathan Purcell Referring Provider [phone] Nathan Purcell Other Provider Collette C D AREA SUPERVISOR, KHAI-Luna Grant Attending Provider Dr. Matt Saul Primary Care Provider [phone] Dr. Matt Saul Referring Provider EDILSON Driscoll Attending Provider Matt Saul MD Primary Care Provider MATT SAUL Primary Care MADDIE Lind Attending Unavailable MATT SAUL Referring MATT Pace Primary Care UnavailDEMETRI Hudson Attending Unavailable MADDIE BERNSTEIN Referring Unavailable MATT SAUL Primary Care Unavailabl MADDIE Guerrero Attending Unavailable Kg LAZO, Dr. Farley Primary Care Provider Kg LAZO, Dr. Farley Referring Provider [phone] Jazzy LAZO, Dr. Evans Attending Provider [phone] Kg LAZO, Dr. Farley Attending Provider [phone] Kg LAZO, Dr. Farley Primary Care Provider [...] MD Attending Physician Oneyda Spring Attending Physician Oneyda Spring Referring Provider Yang Romero Attending Unavailable Dougl[place]ineland, Matt Referring Unavailable [facility] Primary Care Unavailable Spittle, Major Attending Unavailable Spittle, Major Referring Unavailable Spittle, Major Admitting Unavailable [facility] Primary Care Unavailable Kotsonis, Major F Consulting Unavailable Spittle, Major Referring Unavailable Spittle, Major Attending [facility]available [facility] Unavailable Spittle, Major Referring Unavailable Spittle, Major Attending Unavailable [facility] Care Unavailable Oneyda Solano Attending Unavailable Oneyda Solano Referring [facility]available [facility] Un[facility] Primary Care Unavailable Matt Saul Attending [facility]available [facility] Referring Unavailable [facility], Matt Attending Unavailable [facility] Primary Care Unavailable Spittle, Major Referring Unavailable Seven Grey Attending Unavailable [facility] Primary Care Unavailable Spittle, Major Referring Unavailable Hansel Sultana Attending Unavailable Spittle, Major Admitting Unavailable Hansel Sultana Consulting Unavailable [facility] Care Unavailable Spittle, Major Consulting Unavailable Kotsonis, Major F Consulting Unavailable Kotsonis, Major F Attending Unavailable Nathan Purcell Attending Unavailable [facility] Care Unavailable [facility] Referring Unavailable Allergies Allergy Classification Reported Allergen(s) Allergy Type Date of Onset Reaction(s) Facility (3 sources) atorvastatin drug allergy 5 myalgia [facility] Work Phone: (3 sources) simvastatin drug allergy 3 myalgias [facility] Work Phone: (3 sources) CRESTOR, PRAVACHOL drug allergy 3 myalgias [facility] Work Phone: (7 sources) Rkkvbde-Jla-Nky Reductase Inhibitor Propensity to adverse reactions 2 myalgias [facility] Comment on above: Lipitor, Crestor, Zo cor (5 sources) Simvastatin; Translations: [SIMVASTATIN] Drug Allergy 7 Intolerance [facility] Work Phone: (1 source) OTHER; Translations: [OTHER] Propensity to adverse reactions (disorder) 7 [facility] Repository (1 source) Ymdrmpr-Yov-Glr Reductase Inhibitor Drug allergy (disorder) 5 [facility] Repository Medications Current Medications Medication Drug [...] TABS One tablet by mouth daily ASPIRIN [id number] Shruthi Fajardo RN Start: 06-11-2012 take 1 tablet by keyona th once daily at mealtime Aspirin 81 mg Tab Indications: Coronary atherosclerosis of unspecified type of vessel, upper [place] or graft Take 1 tablet by mouth once daily. Take with food. 06/11/2012 Active cholecalciferol 0.025 mg ora l tablet (14 sources) Vitamin D Start: 01-21-2020 take 1 tablet by keyona th once daily Start: 01-21-2020 take 2000 [IU] by mo [facility] once daily Cholecalciferol (Vitamin D3) Active [...] Active docusate sodium 50 mg / sennosides, assisted 8.6 mg oral tablet (2 sources) Start: 12-24-2024 fluticasone propionate 0.05 mg/actuat metered dose nasal spray (4 sources) Corticosteroid Start: 05-04-2023 fluticasone (FLONASE) 50 mcg/actuation nasal spray Use 1 Stella in the nose once daily. 05/04/2023 Active [...] tablet by mouth twice daily METOPROLOL TARTRATE [id number] Mari Reyes RN oxyCODONE hydrochloride 5 mg oral tablet (2 sources) Opioid Agonist Start: 12-24-2024 take 5-10 mg by mouth every four to six hours as needed for pain polyethylene glycol 3350 040305 mg / potassium chloride 2970 mg / sodium bicarbonate 6740 mg / sodium chloride 5860 mg / sodium sulfate 54310 mg powder for oral solution (1 source) [...] One tablet by mouth daily CLOPIDOGREL BISULFATE [id number] Demetri Patrick MD [place] 6-Fnm-Wgh-Fish Oil (7 sources) Start: 02-08-2022 End: 04-04-2024 [place] 2-Ulm-Ejg-Fish Oil (Fish Oil) 300-1,000 mg capsule Discontinued 2 NMA PO TWICE A DAY February 08, 2022 12:00am April 04, 2024 3:20pm Start: 02-08-2022 take 300-1000 mg by mouth twice daily [place] 8-Ogl-Xia-Fish Oil (Fish Oil) 300-1,000 mg capsule Active 2 CAP PO TWICE A DAY February 08, 2022 12:00am Start: 02-08-2022 take 300-1000 mg by mouth once daily [place] 6-Kqy-Ciu-Fish Oil (Fish Oil) 300-1,000 mg capsule Active [...] by mouth daily OMEGA-3 FATTY ACIDS CAPS [id number] Demetri Patrick MD Start: 06-10-2013 End: 03-31-2015 take 1 tablet by mouth once daily FISH OIL CAPS One tablet by mouth daily OMEGA-3 FATTY ACIDS CAPS [id number] Demetri Patrick MD Start: 03-21-2013 End: 03-25-2013 take 1 capsule by mouth once daily FISH OIL CAPS One capsule by mouth daily OMEGA-3 FATTY ACIDS CAPS [id number] Demetri Patrick MD Start: 03-21-2013 take 1 capsule by mo [facility] once daily FISH OIL CAPS One capsule by mouth daily OMEGA-3 FATTY ACIDS CAPS [id number] Shruthi Fajardo RN FLUoxetine 10 mg oral capsule (6 sources) Serotonin Reuptake Inhibitor Start: 03-21-2013 End: 03-25-2013 take 1 tablet by mouth once daily PROZAC 10 MG CAPS One tablet by mouth daily FLUOXETINE HCL [id number] Demetri Patrick MD Start: 03-21-2013 End: 03-25-2013 take 1 tablet by mouth once daily PROZAC 10 MG CAPS One tablet by mouth daily FLUOXETINE HCL [id number] Demetri Patrick MD gemfibrozil 600 mg oral [...] BY PHYSICIAN FOR PROCEDURAL SEDATION ONLY, Intraprocedure Goldfield-3 Fatty Acids (3 sources) Start: 06-09-2013 End: 05-11-2017 take 300 mg by mouth once daily [place]field-3 Fatty Acids Discontinued 300 MG PO DAILY June 09, 2013 1:00am May 11, 2017 5:09pm Start: 06-09-2013 End: 05-11-2017 take 300 mg by mouth once daily Goldfield-3 Fatty Acids Discontinued 300 MG PO DAILY June 09, 2013 12:00am May 11, 2017 4:09pm Goldfield-3 Fatty Acids 300 MG capsule (4 sources) Start: 06-09-2013 End: 05-11-2017 take 1 capsule by mouth once daily Goldfield-3 Fatty Acids 300 MG capsule Discontinued 300 [...] myocardial infarction; Translations: [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 [place] [address] / REHABILITATION SERVICES INITIAL EVALUATION MR#: [id number] Acct: [id number] Name: MARIA E GUTHRIE Rep #: [id number] : 1950 74 From: Cesar Holloway DPT [...] to be FAXED BACK to us at [phone] for Medicare purposes. For Medicare only, by signing this I certify the plan of care. Please let me know if there are questions or concerns regarding this plan of care. Physician Signature: Date:__ 01/07/25 1208 CC: Dr. Matt Saul MD; EDILSON Diaz CLS Signed Normal [facility] Microalb:Creat Ratio,Random URon 01-06-2025 Creatinine [Mass/Vol] 68.50 mg/dL Normal 39.00-259.00 [facility] Comment on above: Order Comment: Order Date: 01/06/25 Order Info: [id number] - MIALB Performed By: #### L 502.0250 #### [facility] [address] [place], [place], [address] MALB:CREAT 322.6 mg/g CRE High <30 mg/g CRE [facility] Comment on above: Order Comment: Order Date: 01/06/25 Order Info: [id number] - MIALB Performed By: #### L 502.0250 #### [facility] [address] [place], [address] MICROALBUMIN,UR 221.0 mg/L Normal <20 mg/L [facility] Comment on above: Order Comment: Order Date: 01/06/25 Order Info: [id number] - MIALB Performed By: #### L 502.0250 #### [facility] [address] [place], [address] Random urine creatinine collin urement (mass/volume)Ordered By: Matt Saul on 01-06-2025 Creatinine Unsp time (U) [Mass/Vol] 68.50 mg/dL 39.00-259.00 [facility] Urine albumin measurement wi detection limit of 20 mg/L or less (mass/volume)Ordered By: Matt Saul on 01-06-2025 Albumin DL <= 20 mg/L (U) [Mass/Vol] 221.0 mg/L <20 mg/L [facility] Anion gap in Serum or Plasma Ordered By: Major Yi on 12-24-2024 Anion gap [Moles/Vol] 15 mmol/L - [facility] BUN/creatinine ratioOrdered By: Major Yi on 12-24-2024 Urea nitrogen/Creatinine [Mass ratio] 19.8 mg/mg - [facility] Basic Metabolic Profile (BMP )on 12-24-2024 BUN/CRE 19.8 RATIO Normal 02-03 [facility] Comment on above: Performed By: #### L 500.2500, L100.0500 ####[facility] [address] [place], [address] Calcium [Mass/Vol] 9.2 mg/dL Normal 7.6-11.0 [facility] Comment on above: Performed By: #### L 500.2500, L100.0500 ####[facility] [address] [place], [address] Chloride [Moles/Vol] 100 mmol/L Normal 98-108 [facility] Comment on above: Performed By: #### L 500.2500, L100.0500 ####[facility] [address] [place], [address] CO2 [Moles/Vol] 19.6 mmol/L Low 21.0-32.0 [facility] Comment on above: Performed By: #### L 500.2500, L100.0500 ####[facility] [address] [place], [address] Creatinine [Mass/Vol] 1.01 mg/dL Normal 0.70-1.20 [facility] Comment on above: Performed By: #### L 500.2500, L100.0500 ####[facility] [address] [place], [address] ECRCL 68.29 ml/min Normal 50-250 [facility] Comment on above: Performed By: #### L 500.2500, L100.0500 ####[facility] [address] [place], [address] GAP 15 Normal 5-15 [facility] Comment on above: Performed By: #### L 500.2500, L100.0500 ####[facility] [address] [place], [address] GFR/1.73 sq M.predicted among non-blacks MDRD (S/P/Bld) [Vol rate/Area] 77 mL/min/{1.73_m2} Normal >60 [facility] Comment on above: Result Comment: mL/m in/1.73m2 CKD-EPI Creatinine Equation (2020) Performed By: #### L 500.2500, L100.0500 ####[facility] [address] [place], [address] Glucose [Mass/Vol] 175 mg/dL High 70-99 [facility] Comment on above: Performed By: #### L 500.2500, L100.0500 ####[facility] [address] [place], [address] Potassium [Moles/Vol] 4.4 mmol/L Normal 3.3-5.1 [facility] Comment on above: Performed By: #### L 500.2500, L100.0500 ####[facility] [address] [place], [address] Sodium [Moles/Vol] 135 mmol/L Normal 133-145 [facility] Comment on above: Performed By: #### L 500.2500, L100.0500 ####[facility] [address] [place], [address] Urea nitrogen [Mass/Vol] 20 mg/dL High 4-19 [facility] Comment on above: Performed By: #### L 500.2500, L100.0500 ####[facility] [address] [place], [address] Bedside Glucoseon 12-24-2024 FINGERSTICK GLU 306 mg/dL High 74-106 [facility] Comment on above: Result Comment: SUSAN GEMENT OF PATIENT CARE PER NURSING PROTOCOL Performed By: #### L 501.080 #### [facility] [address] [place], [address] FINGERSTICK GLU 188 mg/dL High 74-106 [facility] Comment on above: Result Comment: SUSAN GEMENT OF PATIENT CARE PER NURSING PROTOCOL Performed By: #### L 501.080 #### [facility] [address] [place], [address] CBC-Complete Blood Cnt No Di ffon 12-24-2024 Erythrocyte distribution width (RBC) [Ratio] 13.4 % Normal 11.6-14.6 [facility] Comment on above: Performed By: #### L 500.2500, L100.0500 #### [facility] [address] [place], [address] Hematocrit (Bld) [Volume fraction] 39.7 % Low 40-54 [facility] Comment on above: Performed By: #### L 500.2500, L100.0500 #### [facility] [address] [place], [address] Hemoglobin (Bld) [Mass/Vol] 13.5 g/dL Normal 13.0-16.5 [facility] Comment on above: Performed By: #### L 500.2500, L100.0500 #### [facility] [address] [place], [address] MCH (RBC) [Entitic mass] 29.6 pg Normal 27.0-32.0 [facility] Comment on above: Performed By: #### L 500.2500, L100.0500 #### [facility] [address] [place], [address] MCHC (RBC) [Mass/Vol] 34.0 g/dL Normal 32-36 [facility] Comment on above: Performed By: #### L 500.2500, L100.0500 #### [facility] [address] [place], [address] MCV (RBC) [Entitic vol] 87.1 fL Normal 80-94 [facility] Comment on above: Performed By: #### L 500.2500, L100.0500 #### [facility] [address] [place], [address] Platelet mean volume (Bld) [Entitic vol] 11.7 fL Normal 6.2-12.0 [facility] Comment on above: Performed By: #### L 500.2500, L100.0500 #### [facility] [address] [place], [address] Platelets (Bld) [#/Vol] 174 10*3/uL Normal 150-450 [facility] Comment on above: Performed By: #### L 500.2500, L100.0500 #### [facility] [address] [place], [address] RBC (Bld) [#/Vol] 4.56 10*6/uL Low 4.6-6.2 [facility] Comment on above: Performed By: #### L 500.2500, L100.0500 #### [facility] [address] [place], [address] RDW SD 41.7 fl Normal 35.1-43.9 [facility] Comment on above: Performed By: #### L 500.2500, L100.0500 #### [facility] [address] [place], [address] WBC (Bld) [#/Vol] 10.6 10*3/uL Normal 4.4-11.0 [facility] Comment on above: Performed By: #### L 500.2500, L100.0500 #### [facility] [address] [place], [address] Carbon dioxide, total [Moles /volume] in Central venous bloodOrdered By: Major Yi on 12-24-2024 CO2 [Moles/Vol] 19.6 mmol/L Low 21.0-32.0 [facility] Chloride assayOrdered By: Yumiko Yi on 12-24-2024 Chloride [Moles/Vol] 100 mmol/L 98-108 [facility] Erythrocyte distribution wid th ratioOrdered By: Major Yi on 12-24-2024 Erythrocyte distribution width (RBC) [Ratio] 13.4 % 11.6-14.6 [facility] Erythrocyte distribution wid th standard deviationOrdered By: Major Yi on 12-24-2024 Erythrocyte distribution width (RBC) [Ratio] 41.7 fl 35.1-43.9 [facility] Glomerular filtration rate ( GFR) estimation/1.73 sq m using serum, plasma, or whole bOrdered By: Mjaor Yi on 12-24-2024 GFR/1.73 sq M.predicted among non-blacks MDRD (S/P/Bld) [Vol rate/Area] 77 mL/min/{1.73_m2} >60 [facility] Comment on above: mL/min/1.73m2 CKD-EP I Creatinine Equation (2020) [facility]dered By: Major Yi on 12-24-2024 Glucose [Mass/Vol] 306 mg/dL High 74-106 [facility] Comment on above: MANAGEMENT OF PATIEN T CARE PER NURSING PROTOCOL Hematocrit Auto (Bld) [Volum e fraction]Ordered By: Major Yi on 12-24-2024 Hematocrit (Bld) [Volume fraction] 39.7 % Low 40-54 [facility] Hemoglobin measurementOrdere d By: Major Yi on 12-24-2024 Hemoglobin (Bld) [Mass/Vol] 13.5 g/dL 13.0-16.5 [facility] MCV (mean corpuscular volume ) determinationOrdered By: Major Yi on 12-24-2024 MCV (RBC) [Entitic vol] 87.1 fL 80-94 [facility] Mean corpuscular hemoglobin (MCH) determinationOrdered By: Major Yi on 12-24-2024 MCH (RBC) [Entitic mass] 29.6 pg 27.0-32.0 [facility] Mean corpuscular hemoglobin concentration (MCHC) determinationOrdered By: Major Yi on 12-24-2024 MCHC (RBC) [Mass/Vol] 34.0 g/dL 32-36 [facility] Mean platelet volume determi nationOrdered By: Major Yi on 12-24-2024 Platelet mean volume (Bld) [Entitic vol] 11.7 fL 6.2-12.0 [facility] Platelet countOrdered By: Yumiko Yi on 12-24-2024 Platelets (Bld) [#/Vol] 174 10*3/uL 150-450 [facility] Potassium measurement (mass/ volume)Ordered By: Major Yi on 12-24-2024 Potassium (Unsp spec) [Mass/Vol] 4.4 mmol/L 3.3-5.1 [facility] RBC Auto (Bld) [#/Vol]Ordere d By: Major Yi on 12-24-2024 RBC (Bld) [#/Vol] 4.56 10*6/uL Low 4.6-6.2 [facility] Serum creatinine measurement (mass/volume)Ordered By: Major Yi on 12-24-2024 Creatinine [Mass/Vol] 1.01 mg/dL 0.70-1.20 [facility] Serum glucose measurement (m ass/volume)Ordered By: Major Yi on 12-24-2024 Glucose [Mass/Vol] 175 mg/dL High 70-99 [facility] Serum or plasma calcium collin urement (mass/volume)Ordered By: Major Yi on 12-24-2024 Calcium [Mass/Vol] 9.2 mg/dL 7.6-11.0 [facility] Serum or plasma urea nitroge n measurement (mass/volume)Ordered By: Major Yi on 12-24-2024 Urea nitrogen [Mass/Vol] 20 mg/dL High 4-19 [facility] Sodium levelOrdered By: Moshe Yi on 12-24-2024 Sodium [Moles/Vol] 135 mmol/L 133-145 [facility] White blood cell (WBC) count Ordered By: Major Yi on 12-24-2024 WBC (Bld) [#/Vol] 10.6 10*3/uL 4.4-11.0 [facility] Bedside Glucoseon 12-23-2024 FINGERSTICK GLU 272 mg/dL High 74-106 [facility] Comment on above: Result Comment: SUSAN GEMENT OF PATIENT CARE PER NURSING PROTOCOL Performed By: #### L 501.080 ####[facility] [address] [facility] [place], [address] FINGERSTICK GLU 166 mg/dL High 74-106 [facility] Comment on above: Result Comment: SUSAN GEMENT OF PATIENT CARE PER NURSING PROTOCOL Performed By: #### L 501.080 ####[facility] [address] [place], [address] FINGERSTICK GLU 195 mg/dL High [facility]106 [facility] Comment on above: Result Comment: SUSAN GEMENT OF PATIENT CARE PER NURSING PROTOCOL Performed By: #### L 501.080 #### [facility] [address] [place], [address] Consultation - Hospitaliston 12-23-2024 Consultation - Hospitalist [facility] Medical Records Department [address] [place] [address] Consultation - Hospitalist 12/23/24 1608 MR#: [id number] Acct: [id number] Name: MARIA E GUTHRIE Rep #: [id number] : 1950 74 From: Hansel Sultana DO PCP: Dr. Matt Saul MD Status:ADM BAR Location: [place] [address] Assessment Plan Assessment/Plan (1) Right rotator cuff tear arthropathy: PLAN: Plan Patient is a 74-year-old male who presented to [facility] on 12/23/2024 for planned right shoulder [...] is a 74 M who presented to [facility] on 12/23/2024 for planned orthopedic procedure. [...] No other acute concerns at this time. [facility] Medical History Wears hearing aid Wears glasses Wears partial dentures History of steroid therapy Arthritis Dietary restriction Non-smoker History of echocardiogram History of stress test Cardiology follow-up encounter Diabetes Myocardial infarct Hypertension Osteoarthritis Gout Atherosclerosis of coronary artery of upper [place] heart without angina pectoris Hyperlipidemia Home Medications [...] Type Severity Reaction Status Date / Time Tqjblyr-EYG-MwS Reductase AdvReac Mild myalgias Verified 12/23/24 10:26 Inhibitor (Ijqobbw-Ygj-Gxo Reductase Inhibitor) Family History Brother CAD (coronary [...] and well nourished (more content not included)... [facility] MR/POSTOP.ANEon 12-23-2024 MR/POSTOP.[facility] Medical Records Department [address] [place] [address] Anesthesia Postop Eval I 12/23/24 1332 MR#: [id number] Acct: [id number] Name: MARIA E GUTHRIE Rep #: [id number] : 1950 74 From: Priscilla Willard CRNA PCP: Dr. Matt Saul MD Status:REG [facility] Race: C Location: [place] [address] Anesthesia: Postop Eval I Current Vital Signs Temperature: 97 F Pulse Rate: 89 Blood Pressure: 145/87 Respiratory Rate: 18 Pulse Ox: 93 Assessment Airway patent: Yes Spontaneous unlabored respirations: Yes nausea: No Vomiting: No Anesthesia Complication: No Fluid Hydration Crystalloid volume administer (ml): 1,300 Total IV fluid infused: 1,300 Progress Note Anesthesia document: Postop Eval 1 completed: Yes 12/23/241332 Date Priscilla Willard COUNSELOR MARRIAGE AND FAMILY Cosigner Signature: Date CC: Signed [facility] MR/PHKGJRRG2ss 12-23-2024 MR/POSTOPAN2 [facility] Medical Records Department [address] [facility] [place] [address] Anesthesia Postop Eval II 12/23/24 1433 MR#: [id number] Acct: [id number] Name: MARIA E GUTHRIE Rep #: [id number] : 1950 74 From: Osei Lubin MD PCP: Dr. Matt Saul MD Status:ADM BAR Y Race: C [facility] Postop Eval I Sum Postop Eval Completion status Anesthesia document: Postop Eval 1 completed: Yes Anesthesia Postop Eval I Summary Anesthesia Postop Eval I Summary: Anesthesia Postop Eval I: Assessment Summary Airway patent Yes 12/23/24 13:32 COUNSEL[employer] FAMILY.CSIR Spontaneous unlabored Yes 12/23/24 13:32 COUNSEL[employer] FAMILY.CSIR respirations Mental status nausea No 12/23/24 13:32 COUNSEL[employer] FAMILY.CSIR Vomiting No 12/23/24 13:32 [employer]AGE [employer] FAMILY.CSIR Anesthesia Postop Eval I: Fluid Summary Crystalloid volume administer 1,300 12/23/24 13:32 COUNSEL[employer] FAMILY.CSIR (ml) Colloids volume administered ( ml) Blood Product volume administered (ml) Total IV fluid infused 1,300 12/23/24 13:32 [employer]SEL[employer]AGE [employer] FAMILY.CSIR Anesthesia Postop Eval I: Summary Notes Anesthesia Complication No 12/23/24 13:32 [employer] FAMILY.CSIR Anesthesia Complication Comment: Post-operative progress note Anesthesia: Postop Eval II Evaluation Mental status: Awake and Calm Pain Level: 1 nausea: No Vomiting: No Complications Anesthesia Complication: No 12/23/24 1433 Date Osei Lubin MD Cosigner Signature: Date CC: Signed Normal [facility] Magnesiumon 12-23-2024 Magnesium [Mass/Vol] 1.8 mg/dL Normal 1.5-2.2 [facility] Comment on above: Performed By: #### L 501.5200 #### [facility] [place], [address] Magnesium measurement (mass/ volume)Ordered By: Faheem Barroso on 12-23-2024 Magnesium (Unsp spec) [Mass/Vol] 1.8 mg/dL 1.5-2.2 [facility] Operative Reporton Operative Report [facility] Medical Records Department [address] [place] [address] Operative Report 12/23/24 1322 MR#: [id number] Acct: [id number] Name: MARIA E GUTHRIE Rep #: [id number] : 1950 74 From: Major Yi DO PCP: Dr. Matt Saul MD Status:[facility] Location: [place] [address] Operative Report (Standard) Operative Information Date of Procedure: 12/23/24 Pre-Operative Diagnosis: Right shoulder rotator cuff tear arthropathy Post-Operative Diagnosis: Right shoulder rotator cuff tear arthropathy Surgery/Procedure Performed: Right reverse total shoulder arthroplasty optical lens manufacturing tech: Yes Supervisor Quality Control: Oneyda Solano Tasks completed by maintenance assistant: Opening closing, Implanting device, Hemostasis: Electrocautery and [...] No Description of surgery: Patient arrived to [facility] morning of the procedure and was [...] positioned in the beachchair position. A well-padded templer head was applied. The nonoperative extremity was [...] cartilaginous carla (more content not included)... Normal [facility] Shoulder min 2 Viewson 12-23 Shoulder min 2 Views [facility] Imaging Services [address] [place] [address] Shoulder min 2 Views MR#: [id number] Acct: [id number] Name: MARIA E GUTHRIE Rep #: [id number] : 1950 M 74 From: Seven Suárez MD PCP: Dr. Matt Saul MD Status: [facility] Study: Shoulder min 2 Views Date of Exam: 12/23/24 Exam# [id number] Ordering Dr: Major Yi DO PROCEDURE: SHOULDER [...] IMPRESSION: Right shoulder reverse arthroplasty. Reading Location: [place] [address] CC: Dr. Matt Saul MD; Dr. Major Yi DO It Service Manager: Signed [facility] MR/PAT.ANEon 12-04-2024 MR/PAT.ANE [facility] Medical Records Department [address] [facility] [facility] [place] [address] PAT - Anesthesia 12/04/241946 MR#: [id number] Acct: [id number] Name: MARIA E GUTHRIE Rep #: [id number] : 1950 74 From: Faheem Barroso MD PCP: Dr. Matt Saul MD Status:PRE [facility] Y Race: C [place] [facility] Pre-Assessment Diagnosis/Proposed Procedure Planned Operative Procedure(s): RIGHT REVERSE TOTAL SHOULDER ARTHROPLASTY Anesthesia History Anesthesia History - folder machine: Anesthesia History - folder machine Hx Hospitalization No 12/03/24 10:59 Any Problems [...] take am of surgery PONV PONV - folder machine: PONV - folder machine Female No 12/03/24 10:59 HX of Motion Sickness No 12/03/24 10:59 HX of N/V After Surgery No 12/03/24 10:59 Non-Smoker Yes 12/03/24 10:59 Duration of Surgery greater Yes 12/03/24 10:59 than 60 minutes Number of Risk Factors 2 12/03/24 10:59 PONV Score Moderate Risk 12/03/24 10:59 Height Weight Height Weight: Anesthesia: Height Weight Height 6 ft 04/04/24 14:18 Respiratory Assessment Respiratory Assessment - folder machine: Respiratory Tract Infection Hx - folder machine Hx Respiratory Tract Infection No 12/03/24 10:59 STOP Sleep Apnea STOP Sleep Apnea - folder machine: STOP Sleep Apnea - folder machine Hx Hypertension Yes: CONTROLLED WITH MED 12/03/24 [...] Tobacco Use History Tobacco Use History - folder machine: Tobacco Use History - folder machine Tobacco Use Smoking Status Never smoker 12/03/24 10:59 Hx Tobacco Use No 12/03/24 10:59 Years Smoking Packs Smoked per Day Smoking Cessation Date was within the last 15 years Hx Smoking Cessation Date Hx Smoking Cessation Counseling Hematologic Medial History Hematologic Hx - folder machine: 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 Normal [facility] 12 Lead EKGon 11-27-2024 12 Lead EKG [facility] Cardiovascular Services [address] [place] [address] 12 Lead EKG 11/27/24 0654 MR#: [id number] Acct: [id number] Name: MARIA E GUTHRIE W Rep #: [id number] : 1950 74 From: Seven Grey MD Attending Dr: Dr. Major Yi DO Status: [place] [facility] Ordering Dr: Major Yi DO Date: 11/27/24 Location: [facility] Sex: M C Admitted: Test Reason : [...] Borderline ECG Confirmed by Seven Grey ([id number]), development editor KARINA GIVENS ([id number]) on 11/27/2024 9:43:00 AM Referred By: Major Yi Confirmed By: Seven Grey 11/27/24 0943 Date Seven Grey MD CC: Dr. Matt Saul MD; Dr. Major Yi DO Signed Normal [facility] Electrocardiogram reportOrde red By: Seven Grey on 11-27-2024 EKG study [facility] Cardiovascular Services [address] [place] [address] 12 Lead EKG 11/27/24 0654 MR#: [id number] Acct: [id number] Name: MARIA E GUTHRIE Rep #:[id number] : 1950 74 From: Seven alcantara MD Attending Dr: Dr. Major Yi DO Status: PRE [facility] Ordering Dr: Major Yi DO Date: 11/27/24 Location: [facility] Sex: M C Admitted: Test Reason : [...] block Borderline ECG Confirmed by Seven Grey ([id number]), development editor KARINA GIVENS ([id number]) on 59:43:00 AM Referred By: Major Yi Confirmed By: Seven Grey 11/27/24 0943 Date _ Seven Grey MD CC: Dr. Matt Saul MD; Dr. Major Yi DO ~ Signed [facility] Work Phone: Extremity Upper without Cont raon 11-26-2024 Extremity Upper without Contra [facility] Imaging Services [address] [place] [id number] Extremity Upper without Contra MR#: [id number] Acct: [id number] Name: MARIA E GUTHRIE Rep #: [id number] : 1950 M 74 From: Gonzalez Garcia MD PCP: Dr. Matt Saul MD Status: REG CLI Study: Extremity Upper without Contra Date of Exam: 0 11/26/24 Exam# [id number] Ordering Dr: Major Yi DO PROCEDURE: EXTREMITY [...] Matt Saul MD; Dr. Major Yi DO It Service Manager: Signed Normal [facility] Urgent Care Visit Reporton 0 07-09-2024 Ur[address] Report [facility] [address], [address] [place] [address] OFFICE VISIT Date of Service: 07/09/24 MR#: [id number] Acct: [id number] Name: MARIA E GUTHRIE Rep #: [id number] : 1950 Provider: EDILSON Salinas Age/Sex: 74/M Location[facility] Status: Signed Intake Vital Signs 04/04/24 14:18 [...] Reasons: RASH ON BACK Chief Complaint: rash City Magistrate Required: No Is patient in pain?: Yes Allergies Upcdjjk-CKS-KqW Reductase Inhibitor (Krszqab-Obc-Beh Reductase Inhibitor) Adverse Reaction (Mild, Verified 07/09/24 17:33) myalgias Have you fallen in the past year?: No Nurse's Note: rash to left upper buttock/low back x 3-4 days with burning. 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 No adrc-gdd-mxtmxnf products taken to assist. No other associated symptoms and no other alleviating/aggravatin g factors. ROS Const Constitutional: No other (As above) Exam Const General: cooperative, healthy appearing and no acute distress Nutritional Appearance: average body habitus Orientation: alert and awake HENWA Head: normal to inspection Ears: hearing grossly [...] Rodríguez Signature: Date (if applicable) CC: Normal [facility] Ankle min 3 Viewson 06-19-19 25 Ankle min 3 Views [facility] Imaging Services [address] [place] [address] 223841 Ankle min 3 Views MR#: [id number] Acct: [id number] Name: MARIA E GUTHRIE Rep #: [id number] : 1950 M 74 From: Tenzin Joshua MD PCP: Dr. Matt Saul MD Status: REG CLI Study: Ankle min 3 Views Date of Exam: 06/18/24 Exam# [id number] Ordering Dr: Matt Saul EXAM: XR Right [...] evaluation with CT is recommended. Reading [facility] CC: Dr. Matt Saul MD It Service Manager: Signed Normal [facility] Foot min 3 Viewson Foot min 3 Views [facility] Imaging Services [address] [place], [place] [id number] Foot min 3 Views MR#: [id number] Acct: [id number] Name: MARIA E GUTHRIE Rep #: [id number] : 1950 M 74 From: Pako de leon MD PCP: Dr. Matt Saul MD Status: REG CLI Study: Foot min 3 Views Date of Exam: 06/18/24 Exam# [id number] Ordering Dr: Matt Saul PROCEDURE: FOOT MIN [...] suggestive of gout. Calcaneal spurs. Reading Location: [id number] CC: Dr. Matt Saul MD It Service Manager: Signed Normal [facility] Cardiology Visit Reporton Cardiology Visit Report [facility] [address] [place], [place] [address] OFFICE VISIT Date of Service: 04/04/24 MR#: [id number] Acct: [id number] Name: MARIA E GUTHRIE Rep #: [id number] : 1950 Provider: Dr. Nathan Purcell MD Age/Sex: 73/M Location: [facility] Status: Signed HPI HPI History of Present [...] has been put on Praluent by the [facility]. From a cardiac standpoint, the patient [...] Monitor Intake Visit Reasons: 1 Y FU City Magistrate Required: No Accompanied by: Self Is patient in pain?: No Allergies Ihltwaz-OVW-MlR Reductase Inhibitor (Zxkpdll-Haw-Vbp Reductase Inhibitor) Adverse Reaction (Mild, Verified 04/04/24 [...] Osteoarthritis Gout Atherosclerosis of coronary artery of upper [place] heart without angina pectoris PTSD (post-traumatic stress [...] no acu (more content not included)... Normal [facility] CNOVon 02-26-2024 CN Office Visit (GENSWS ) MARIA E GUTHRIE ([id number]) 1950 Date Time Provider Department 02/26/24 1:00 PM MADDIE BERNSTEIN GENS During your visit today, we recorded the following information about you: Maddie Bernstein APRN.CNP 02/26/2024 1:03 PM Signed FOLLOW UP VISIT - ENDOSCOPY Maria E John Maksim 1950 [id number] REFERRING PHYSICIAN: Matt Saul ([facility]) [address] [place] [id number] Maria E Guthrie is a patient I [...] Maddie Bernstein APRN.BALJIT Referring Provider: MATT SAUL [[id number]] Allergies As of Date: 02/26/2024 Noted Allergy Reaction ZOCOR (SIMVASTATIN) 08/15/2006 5 - Intolerance Comments: myalgias Date Reviewed: 02/26/2024 Reviewed by: Maddie Bernstein APRN.FISH 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 Primary Visit Diagnosis:History of colonic polyps [Z86.0100] Prescriptions as of 02/26/2024 - alirocumab (PRALUENT) 150 mg/mL pen Inject 150 mg subcutaneously. - losartan (COZAAR) 100 mg tablet Take 100 mg by mouth. - fluticasone (FLONASE) 50 mcg/actuation nasal spray Use 1 Stella in the nose once daily. - cyanocobalamin [...] Status:Closed by MADDIE BERNSTEIN on 02/26/24 Normal [facility] [id number] 02-19-2024 [id number] HNO ID: [id number] Author: ESTELLE BIRD RN Service: ? Author Type: Registered Nurse Type: [id number] Filed: 02/19/2024 12:17 Note Text: The patient received a copy of Colonoscopy discharge instructions that contain information for how to contact the physician who performed the procedure and when to seek medical care. Normal [facility] Colonoscopyon 02-19-2024 [facility] Patient Name: Maria E Guthrie [...] previous diet. Procedure Code(s): --- Professional --- 82826, Colonoscopy, flexible; with biopsy, single or multiple G0500, Moderate sedation services provided by the same physician or other qualified health child care centre director performing a gastrointestinal endoscopic service that sedation supports, requiring the presence of an independent trained observer to assist in the monitoring of the patient's level of consciousness and physiological status; initial 15 minutes of intra-service time; patient age 5 years or older (additional time may be reported with 42347, as appropriate) Diagnosis Code(s): --- Professional --- Z12.11, Encounter for screening for malignant neoplasm of colon Z86.010, Personal history of colonic polyps K64.8, Other hemorrhoids D12.5, Benign neoplasm of sigmoid colon CPT copyright 2020 [employer]. All rights reserved. The codes documented in this report are preliminary and upon interior painter review may be revised to meet current compliance requirements. Attending Participation: I personally performed the entire procedure. Scope In: 11:39:45 AM Scope Out: 11:54:37 AM MD Demetri Sainz MD 02/19/2024 12:01:02 PM This report has been signed electronically by Demetri Lord MD Number of Addenda: 0 Note Initiated On: 02/19/2024 11:28 AM Estimated Blood Loss: Estimated blood loss was minimal. Normal [facility] Colonoscopy Study observatio non 02-19-2024 [facility] Gastrointestinal Endoscopy Patient Name: Maria E [...] previous diet. Procedure Code(s): --- Professional --- 98692, Colonoscopy, flexible; with biopsy, single or multiple G0500, Moderate sedation services provided by the same physician or other qualified health child care centre director performing a gastrointestinal endoscopic service that sedation sup (more content not included)... PR[facility] Radiology Study observation (narrative) [facility] HISTORY PHYSICALon HISTORY PHYSICAL HNO ID: [id number] Author: DEMETRI LORD MD Service: General Surgery [...] Last colonoscopy 06/[address] Park at [facility]. Sedation:Midazolam 5 mg IV, Fentanyl 100 [...] (FLONASE) 50 mcg/actuation nasal spray Use 1 Stella in the nose once daily. cyanocobalamin (VITAMIN [...] entered by the nurse and reviewed by or Nursing Notes: Francisca Spann RN 02/16/2024 2:03 [...] The pa (more content not included)... Normal [facility] SURGICAL PATHOLOGYon 024 CASE REPORT Normal [facility] Comment on above: Order Comment: Speci men Type: TISSUE SPECIMEN Ordering Facility: [facility] Address: [address] [place] [address] Result Comment: Surg ical Pathology Report Case: [id number] Authorizing Provider: Demetri Lord MD Collected: 02/19/2024 11:51 AM Ordering Location: Ambulatory Surgery Received: 02/19/2024 12:46 PM Pathologist: Tracie Hwang MD Specimen: Colon, Sigmoid, Polyp Performed By: #### S #### [facility] CLIA [id number] [address] [place] [address] [place] FINAL DIAGNOSIS Normal [facility] Comment on above: Order Comment: Speci men Type: TISSUE SPECIMEN Ordering Facility: [facility] Address: [address] [place] [address] Result Comment: A. C olon, sigmoid, polyp, polypectomy -Tubular adenoma Performed By: #### S #### [facility] CLIA [id number] [address] [place] [address] [place] FINAL PERFORMING LAB Normal [facility] Comment on above: Order Comment: Speci men Type: TISSUE SPECIMEN Ordering Facility: [facility] Address: [address] [place] [address] Result Comment: Diag nostic interpretation performed at [facility], [address] [place] [address] CLIA# [id number] [place] Working Supervisor: Karel Singer M.D. Performed By: #### S #### [facility] CLIA [id number] [address] [place] [address] [place] GROSS DESCRIPTION Normal [facility] Comment on above: Order Comment: Speci men Type: TISSUE SPECIMEN Ordering Facility: [facility] Address: [address] [place] [address] Result Comment: A. Luna olon, Sigmoid, Polyp Received in formalin is one piece of simon, soft tissue measuring 0.4 x 0.3 x 0.2 cm. Totally submitted in one cassette. KDK February 19, 2024 7:33 PM Gross examination performed at [facility], [address] [place] [address] Performed By: #### S #### [facility] CLIA [id number] [address] [place] [address] [id number] CNOVon 02-16-2024 CNOV Office Visit (GENSWS ) MARIA E GUTHRIE ([id number]) 1950 Date Time Provider Department 02/16/24 2:00 [...] Last colonoscopy 06/[address] Park at [facility]. Sedation:Midazolam 5 mg IV, Fentanyl 100 [...] (FLONASE) 50 mcg/actuation nasal spray Use 1 Stella in the nose once daily. cyanocobalamin (VITAMIN [...] entered by the nurse and reviewed by or Nursing Notes: Francisca Spann RN 02/16/2024 2:03 [...] stent. Respir (more content not included)... Normal [facility]20[facility] MARIA E GUTHRIE ([id number]) 1950 M Date Time Provider Department 02/16/24 MOLLY BERNSTEIN During your visit today, we recorded the following information about you: Melanie Marcelino 02/16/2024 2:37 PM Signed 02-19-2024 Colonoscopy concepción EFREN Cook prep, nurse went over instructions yudy has direct number to contact for any questions or concerns., Instructed patient to arrive at 1045 in [facility] Allergies As of Date: 02/16/2024 Noted Allergy Reaction ZOCOR (SIMVASTATIN) 08/15/2006 5 - Intolerance Comments: myalgias Date Reviewed: 02/16/2024 Reviewed by: Maddie Bernstein APRN.FISH HOUSE WORKER - Fully Assessed Reason for Visit: 02-19-2024 Colonscoopy [Other] Prescriptions as of 03/18/2024 - alirocumab (PRALUENT) 150 mg/mL pen Inject 150 mg subcutaneously. - losartan (COZAAR) 100 mg tablet Take 100 mg by mouth. - fluticasone (FLONASE) 50 mcg/actuation nasal spray Use 1 Stella in the nose once daily. - cyanocobalamin [...] Encounter Status:Closed by MELANIE MARCELINO on 03/18/24 [facility] No Panel InformationOrdered By: Joe Joshua on 08-18-2023 Troponin I High Sensitivity 9 pg/mL 3.0-78.0 [facility] Comment on above: Please Note: New [place] t Units and Gender Specific Reference Ranges. For more information see Policy Stat Procedure [place] High Sensitivity Troponin (TNIH) and attachments. Absolute lymphocyte countOrd ered By: Joe Joshua on 08-17-2023 Lymphocytes Auto (Unsp spec) [#/Vol] 2.02 10*3/uL 0.83-4.51 [facility] Automated lymphocyte count a s percentage of total leukocytesOrdered By: Joe Joshua on 08-17-2023 Lymphocytes/100 WBC Auto (Unsp spec) 49.8 % 19-41 [facility] Basophil percentageOrdered B y: Joe Joshua on 08-17-2023 Basophils/100 WBC (Bld) 0.5 % 0-1 [facility] Chloride [Moles/Vol] 101 mmol/L 98-107 [facility] Eosinophils/100 WBC (Bld) 0.7 % 0-5 [facility] Glucose [Mass/Vol] 195 mg/dL 74-106 [facility] Comment on above: Fasting Glucose resu lt greater than or equal to 126 mg/dL suggests DIABETES MELLITUS per A.D.A. criteria. Hemoglobin (Bld) [Mass/Vol] 15.4 g/dL 13.0-16.5 [facility] Monocytes/100 WBC (Bld) 10.1 % 0-10 [facility] Neutrophils (Bld) [#/Vol] 1.6 10*3/uL 2.0-7.7 [facility] Neutrophils/100 WBC (Bld) 38.9 % 47-70 [facility] Potassium [Moles/Vol] 3.1 mmol/L 3.5-5.1 [facility] Sodium [Moles/Vol] 135 mmol/L 136-145 [facility] WBC (Bld) [#/Vol] 4.1 10*3/uL 4.4-11.0 [facility] Determination of erythrocyte mean corpuscular volume (MCV)Ordered By: Joe Johsua on 08-17-2023 MCV (RBC) [Entitic vol] 87.0 fL 80-94 [facility] Erythrocyte distribution wid th ratioOrdered By: Joe Joshua on 08-17-2023 Erythrocyte distribution width (RBC) [Ratio] 13.0 % 11.6-14.6 [facility] Erythrocyte distribution wid th standard deviationOrdered By: Joe Joshua on 08-17-2023 Erythrocyte distribution width (RBC) [Entitic vol] 40.8 fL 35.1-43.9 [facility] Hematocrit Auto (Bld) [Volum e fraction]Ordered By: Joe Joshua on 08-17-2023 Hematocrit (Bld) [Volume fraction] 45.4 % 40-54 [facility] Immature granulocytes/100 WB C Auto (Bld)Ordered By: Joe Joshua on 08-17-2023 Immature granulocytes/100 WBC (Bld) 0.000 % 0.0-0.9 [facility] Comment on above: IG% - Immature Granu locytes (promyelocytes, myelocytes and metamyelocytes) > 1% indicates that a LEFT SHIFT is Present. Laboratory - Chemistry and C hemistry - challengeOrdered By: Joe Joshua on 08-17-2023 CO2 [Moles/Vol] 29.0 mmol/L 21.0-32.0 [facility] Urea nitrogen/Creatinine [Mass ratio] 18.5 mg/mg 10-20 [facility] Laboratory - Hematology and Cell countsOrdered By: Joe Joshua on 08-17-2023 MCH (RBC) [Entitic mass] 29.5 pg 27.0-32.0 [facility] MCHC (RBC) [Mass/Vol] 33.9 g/dL 32-36 [facility] Nucleated RBC/100 WBC (Bld) [Ratio] 0 % 0-5 [facility] Platelet mean volume (Bld) [Entitic vol] 10.7 fL 6.2-12.0 [facility] Platelets (Bld) [#/Vol] 147 10*3/uL 150-450 [facility] No Panel InformationOrdered By: Joe Joshua on 08-17-2023 D-Dimer Quantitative (PE/DVT) 0.44 FEU/ug/m 0.27-0.49 [facility] Comment on above: NORMAL D-Dimer level (<0.50) indicates no DVT or PE. Estimated Creatinine Clearance Calc 72.22 ml/min [facility] Estimated GFR (MDRD) Amer 97 mL/min >60 [facility] Comment on above: GFR Calc Estimated GFR (MDRD) Non-Af Amer 80 mL/min >60 [facility] Comment on above: Non- GFR Calc RBC Auto (Bld) [#/Vol]Ordere d By: Joe Joshua on 08-17-2023 RBC (Bld) [#/Vol] 5.22 10*6/uL 4.6-6.2 [facility] Serum or plasma calcium collin urement (mass/volume)Ordered By: Joe Joshua on 08-17-2023 Calcium [Mass/Vol] 9.4 mg/dL 8.5-10.1 [facility] Serum or plasma creatinine m easurement (mass/volume)Ordered By: Joe Joshua on 08-17-2023 Creatinine [Mass/Vol] 0.97 mg/dL 0.70-1.30 [facility] Comment on above: The validity of the calculated GFR & GFRAA in patients over 70 years has not been determined. Clinical correlation is essential. Serum or plasma urea nitroge n measurement (mass/volume)Ordered By: Joe Joshua on 08-17-2023 Urea nitrogen [Mass/Vol] 18 mg/dL 7-18 [facility] Thin prep Papanicolaou smear with manual screeningOrdered By: Joe Joshua on 08-17-2023 Thin prep Papanicolaou smear with manual screening 5 5-15 [facility] No Panel Informationon 05-17 Influenza Types A,B Rapid (Clinic) Pos FLU A &Neg FLU B [facility] Office Visiton 11-08-2016 Fall risk assessment No [facility] Work Phone: [phone] Protein mass conc Done [facility] Work Phone: [phone] Chart Maintenanceon 11-07-19 17 Left ventricular Ejection fraction 75 % [facility] Work Phone: Office Visiton 03-29-2016 Dietary management education, guidance, and counseling (procedure) yes Invalid Interpretation Code [facility] Work Phone: [phone] Documentation of current medications (procedure) Done Invalid Interpretation Code [facility] Work Phone: [phone] Tobacco smoking status NHIS Never smoker [facility] Work Phone: [phone] Tobacco use CPHS Never smoker Invalid Interpretation Code [facility] Work Phone: [phone] Clinical Lists Update: Prelo environmental auditor 12-22-2015 Alanine aminotransferase (ALT) 45 U/L [facility] Work Phone: [phone] Albumin 4.1 g/dL [facility] Work Phone: [phone] Alkaline phosphatase (ALP) 51 U/L Invalid Interpretation Code [facility] Work Phone: [phone] ALP enzyme act/vol (Bld) 51 U/L [facility] Work Phone: [phone] Anion gap 16 mmol/L Invalid Interpretation Code [facility] Work Phone: [phone] Anion gap molar conc 16 mmol/L [facility] Work Phone: [phone] Aspartate aminotransferase (AST) 40 U/L [facility] Work Phone: [phone] Bilirubin (total) 0.5 mg/dL [facility] Work Phone: [phone] Calcium 8.9 mg/dL [facility] Work Phone: [phone] Chloride 109 mmol/L High [facility] Work Phone: [phone] Cholesterol 202 mg/dL High [facility] Work Phone: [phone] CO2 19 mmol/L Low [facility] Work Phone: [phone] CO2 ppres (BldV) 19 mmol/L Low [facility] Work Phone: [phone] Creatinine 1.0 mg/dL [facility] Work Phone: [phone] Erythrocyte distribution width Ratio (RBC) 13.6 % [facility] Work Phone: [phone] Erythrocytes (RBC) 5.69 10*6/uL Invalid Interpretation Code [facility] Work Phone: [phone] Glucose 117 mg/dL Invalid Interpretation Code [facility] Work Phone: [phone] Glucose mass conc 117 mg/dL [facility] Work Phone: [phone] HbA1c 6.5 % High [facility] Work Phone: [phone] HDL Cholesterol 45 mg/dL [facility] Work Phone: [phone] Hematocrit (HCT) 49.1 % Invalid Interpretation Code [facility] Work Phone: [phone] Hematocrit Volume Fraction (Bld) 49.1 % [facility] Work Phone: [phone] Hemoglobin (HGB) 16.6 g/dL [facility] Work Phone: [phone] LDL Cholesterol 130 mg/dL High [facility] Work Phone: [phone] Magnesium 2.3 mg/dL [facility] Work Phone: [phone] MCH 29.2 pg Invalid Interpretation Code [facility] Work Phone: [phone] MCH Entitic mass (RBC) 29.2 pg [facility] Work Phone: [phone] MCHC 33.8 g/dL Invalid Interpretation Code [facility] Work Phone: [phone] MCHC mass conc (RBC) 33.8 g/dL [facility] Work Phone: [phone] MCV 86.3 fL Invalid Interpretation Code [facility] Work Phone: [phone] MCV Entitic volume (RBC) 86.3 fL [facility] Work Phone: [phone] Platelets 245 10*3/mm3 Invalid Interpretation Code [facility] Work Phone: [phone] Platelets #/vol (Bld) 245 10*3/mm3 [facility] Work Phone: [phone] Potassium 3.9 mmol/L [facility] Work Phone: [phone] Protein 7.3 g/dL [facility] Work Phone: [phone] RBC #/vol (Bld) 5.69 10*6/uL [facility] Work Phone: [phone] RDW-CA 13.6 % Invalid Interpretation Code [facility] Work Phone: [phone] Sodium 140 mmol/L [facility] Work Phone: [phone] Thyroid stimulating hormone (TSH) 1.23 u[iU]/mL [facility] Work Phone: [phone] Thyroxine (T4) free 1.05 ng/dL [facility] Work Phone: [phone] Triglyceride 272 mg/dL High [facility] Work Phone: [phone] Urea nitrogen 19 mg/dL [facility] Work Phone: [phone] WBC #/vol (Bld) 4.84 10*3/uL [facility] Work Phone: [phone] WBC (Leukocytes) 4.84 10*3/uL Invalid Interpretation Code [facility] Work Phone: [phone] Lab Report: Lipid Profileon 04-08-2015 very low density lipoproteins 35 mg/dL 5-40 [facility] Work Phone: [phone] Lab Report: Liver Profileon 04-08-2015 Bilirubin (direct) 0.12 mg/dL 0.00-0.30 [facility] Work Phone: [phone] Globulin 3.2 g/dL Invalid Interpretation Code 2.3-3.5 [facility] Work Phone: [phone] Globulin mass conc (S) 3.2 g/dL 2.3-3.5 [facility] Work Phone: [phone] Clinical Lists Update: Prelo environmental auditor 04-02-2014 Globulin 3.0 g/dL Invalid Interpretation Code [facility] Work Phone: [phone] Globulin mass conc (S) 3.0 g/dL [facility] Work Phone: [phone] External Other: Preferred Me thod of Contacton 04-02-2014 methcontact secmsg [facility] Work Phone: [phone] Patient's prefered method of contact secmsg Invalid Interpretation Code [facility] Work Phone: [phone] Lab Report: Liver Profileon 04-02-2014 ALK P 49 U/L Critically low 50-136 [facility] Work Phone: [phone] GE use only - for [employer] import when terms are not otherwise specified 49 U/L Critically low 50-136 [facility] Work Phone: [phone] Office Visiton 03-31-2014 cardiac risk group C [facility] Work Phone: [phone] General cardiovascular disease 10Y risk [#] [place] [facility] [employer] Work Phone: Vital Signs Date Time Vital Sign Value Performing Clinician Alexa bedoya 12-24-2024 08:33-0400 Heart rate 58 /min Dr. Matt Saul MD Work Phone: [facility] 12-24-2024 08:26-0400 Body temperature 97.6 [degF] Dr. Matt Saul MD Work Phone: [facility] 12-24-2024 08:26-0400 Diastolic blood pressure 71 mm[Hg] Dr. Matt Saul MD Work Phone: 5(760)920-248978 [place] [address] 12-24-2024 08:26-0400 Respiratory rate 18 /min Dr. Matt Saul MD Work Phone: 9(171)789-647778 [address] 12-24-2024 08:26-0400 SaO2% (BldA) [Mass fraction] 95 % Dr. Matt Saul MD Work Phone: 0(764)239-681278 [address] 12-24-2024 08:26-0400 Systolic blood pressure 128 mm[Hg] Dr. Matt Saul MD Work Phone: 9(674)829-477578 [address] 12-23-2024 18:43-0400 Inhaled oxygen flow rate 2 L/min Dr. Matt Saul MD Work Phone: [facility] 12-23-2024 14:44-0400 Body height 182.[address] Matt Saul MD Work Phone: 4(420)556-769678 [address] 12-23-2024 14:44-0400 Body mass index (BMI) [Ratio] 26.9 kg/m2 Dr. Matt Saul MD Work Phone: 8(321)571-021178 [place] [address] 12-23-2024 14:44-0400 Body weight [address] Matt Saul MD Work Phone: 2(633)841-150186 [place] [address] 04-04-2024 14:18-0500 Body height 182.[address] Matt Saul MD Work Phone: 1(370)251-186578 [address] 04-04-2024 14:18-0500 Body mass index (BMI) [Ratio] 27.2 kg/m2 Dr. Matt Saul MD Work Phone: [facility] 04-04-2024 14:18-0500 Body weight 91.[address] Matt Saul MD Work Phone: [facility] 04-04-2024 14:18-0500 Diastolic blood pressure 90 mm[Hg] Dr. Matt Saul MD Work Phone: [facility] 04-04-2024 14:18-0500 Heart rate 69 /min Dr. Matt Saul MD Work Phone: [facility] 04-04-2024 14:18-0500 Respiratory rate 16 /min Dr. Matt Saul MD Work Phone: [facility] 04-04-2024 14:18-0500 Systolic blood pressure 132 mm[Hg] Dr. Matt Saul MD Work Phone: [facility] 02-19-2024 12:20-0500 Diastolic blood pressure 72 mm[Hg] Demetri Lord MD Work Phone: [facility] 02-19-2024 12:20-0500 Heart rate 55 /min Demetri Lord MD Work Phone: [facility] 02-19-2024 12:20-0500 Respiratory rate 16 /min Demetri Lord MD Work Phone: [facility] 02-19-2024 12:20-0500 SaO2% (BldA) [Mass fraction] 95 % Demetri Lord MD Work Phone: [facility] 02-19-2024 12:20-0500 Systolic blood pressure 115 mm[Hg] Demetri Lord MD Work Phone: [facility] 02-19-2024 10:40-0500 Body mass index (BMI) [Ratio] 27.18 kg/m2 Demetri Lord MD Work Phone: [facility] 02-19-2024 10:40-0500 Body temperature 98.4 [degF] Demetri Lord MD Work Phone: [facility] 02-19-2024 10:40-0500 Body weight 90.9 kg Demetri Lord MD Work Phone: [facility] 02-16-2024 14:03-0400 Body height 182.9 cm Maddie Jakob SPA SUPERVISOR.[employer] HOUSE WORKER Work Phone: [facility] 02-16-2024 14:03-0400 Body mass index (BMI) [Ratio] 27.18 kg/m2 Maddie Jakob SPA SUPERVISOR.FISH HOUSE WORKER Work Phone: [facility] 02-16-2024 14:03-0400 Body temperature 97.81 [degF] Maddie Jakob SPA SUPERVISOR.[employer] HOUSE WORKER Work Phone: [facility] 02-16-2024 14:03-0400 Body weight 90.9 kg Maddie Jakob SPA SUPERVISOR.[employer] HOUSE WORKER Work Phone: [facility] 02-16-2024 14:03-0400 Diastolic blood pressure 82 mm[Hg] Maddie Jakob SPA SUPERVISOR.FISH HOUSE WORKER Work Phone: [facility] 02-16-2024 14:03-0400 Heart rate 80 /min Maddie Jakob SPA SUPERVISOR.F[employer] HOUSE WORKER Work Phone: [facility] 02-16-2024 14:03-0400 SaO2% (BldA) [Mass fraction] 92 % Maddie Jakob SPA SUPERVISOR.F[employer] HOUSE WORKER Work Phone: [facility] 02-16-2024 14:03-0400 Systolic blood pressure 138 mm[Hg] Maddie Jakob SPA SUPERVISOR.F[employer] HOUSE WORKER Work Phone: [facility] 08-18-2023 01:00-0400 Body temperature 98.5 [degF] Dr. Matt Saul Work Phone: [facility] 08-18-2023 01:00-0400 Diastolic blood pressure 91 mm[Hg] Dr. Matt Saul Work Phone: [facility] 08-18-2023 01:00-0400 Heart rate 59 /min Dr. Matt Saul Work Phone: [facility] 08-18-2023 01:00-0400 Respiratory rate 18 /min Dr. Matt Saul Work Phone: 4(847)496-596878 [address] 08-18-2023 01:00-0400 SaO2% (BldA) [Mass fraction] 98 % Dr. Matt Saul Work Phone: [facility] 08-18-2023 01:00-0400 Systolic blood pressure 148 mm[Hg] Dr. Matt Saul Work Phone: 4(795)118-553686 [place] [address] 08-17-2023 21:03-0400 Body height 182.[address] Matt Saul Work Phone: 9(540)990-629278 [place] [address] 08-17-2023 21:03-0400 Body mass index (BMI) [Ratio] 27.7 kg/m2 Dr. Matt Saul Work Phone: 0(282)964-934878 [address] 08-17-2023 21:03-0400 Body weight 92.[address] Matt Saul Work Phone: 1(973)273-138078 [place] [address] 05-17-2023 11:30-0500 Body mass index (BMI) [Ratio] 28.2 kg/m2 Dr. Matt Saul Work Phone: 4(112)066-053586 [place] [address] 05-17-2023 11:30-0500 Body temperature 97.8 [degF] Dr. Matt Saul Work Phone: 2(122)769-108086 [place] [address] 05-17-2023 11:30-0500 Body weight 94.[address] Matt Saul Work Phone: 2(768)287-856578 [place] [address] 05-17-2023 11:30-0500 Diastolic blood pressure 76 mm[Hg] Dr. Matt Saul Work Phone: 7(894)082-707178 [address] 05-17-2023 11:30-0500 Heart rate 71 /min Dr. Matt Saul Work Phone: [facility] 05-17-2023 11:30-0500 Respiratory rate 16 /min Dr. Matt Saul Work Phone: [facility] 05-17-2023 11:30-0500 SaO2% (BldA) [Mass fraction] 96 % Dr. Matt Saul Work Phone: [facility] 05-17-2023 11:30-0500 Systolic blood pressure 140 mm[Hg] Dr. Matt Saul Work Phone: [facility] 02-08-2023 13:58-0400 Body height 182.[address] Armond Saul Work Phone: 4(084)810-122078 [address] 02-08-2022 13:51-0400 Body height 182.[address] Armond Saul Work Phone: 1(612)175-157578 [address] 02-08-2022 13:51-0400 Body mass index (BMI) [Ratio] 26.9 kg/m2 Dr. Armond Saul Work Phone: 4(489)744-951986 [place] [address] 02-08-2022 13:51-0400 Body mass index (BMI) [Ratio] 28 kg/m2 Dr. Armond Saul Work Phone: [facility] 02-08-2022 13:51-0400 Body weight 90.[address] Armond Saul Work Phone: [facility] 02-08-2022 13:51-0400 Body weight 93.[address] Armond Saul Work Phone: [facility] 02-08-2022 13:51-0400 Diastolic blood pressure 91 mm[Hg] Dr. Armond Saul Work Phone: [facility] 02-08-2022 13:51-0400 Diastolic blood pressure 84 mm[Hg] Dr. Armond Saul Work Phone: [facility] 02-08-2022 13:51-0400 Heart rate 70 /min Dr. Armond Saul Work Phone: [facility] 02-08-2022 13:51-0400 Heart rate 67 /min Dr. Armond Saul Work Phone: [facility] 02-08-2022 13:51-0400 Respiratory rate 16 /min Dr. Armond Saul Work Phone: [facility] 02-08-2022 13:51-0400 Respiratory rate 18 /min Dr. Armond Saul Work Phone: [facility] 02-08-2022 13:51-0400 SaO2% (BldA) [Mass fraction] 95 % Dr. Armond Saul Work Phone: [facility] 02-08-2022 13:51-0400 SaO2% (BldA) [Mass fraction] 94 % Dr. Armond Saul Work Phone: [facility] 02-08-2022 13:51-0400 Systolic blood pressure 155 mm[Hg] Dr. Armond Saul Work Phone: [facility] 02-08-2022 13:51-0400 Systolic blood pressure 132 mm[Hg] Dr. Armond Saul Work Phone: [facility] 11-08-2016 13:10-0400 BMI (Body Mass Index) 28.87 kg/m2 [facility] Work Phone: 11-08-2016 13:10-0400 BP Diastolic 68 mm[Hg] [facility] Work Phone: 11-08-2016 13:10-0400 BP Systolic 130 mm[Hg] [facility] Work Phone: 11-08-2016 13:10-0400 Height 180.34 cm [facility] Work Phone: 11-08-2016 13:10-0400 Pulse (Heart Rate) 58 /min [facility] Work Phone: 11-08-2016 13:10-0400 Respiratory Rate 18 /min [facility] Work Phone: 11-08-2016 13:10-0400 Weight 93.9 kg [facility] Work Phone: 03-29-2016 13:01-0500 BMI (Body Mass Index) 29.43 kg/m2 [facility] Work Phone: 03-29-2016 13:01-0500 BP Diastolic 70 mm[Hg] [facility] Work Phone: 03-29-2016 13:01-0500 [...] Provider Facility Start: 02-26-2025 ambulatory Oneyda Solano Facility:[facility] Start: 01-15-2025 Registered Recurring Oneyda Solano PA -Physical Therapy Work Phone: Start: 01-06-2025 End: 01-06-[address] Matt Saul MD Work Phone: -Laboratory Specimen Start: 01-06-2025 End: 01-06-[address] Matt Saul MD -Laboratory Specimen Work Phone: Start: 01-06-2025 End: 01-06-2025 ambulatory Matt Saul Facility:[facility] Start: 12-26-2024 Encounter for other preprocedural examination [facility] Start: 12-26-2024 Encounter for preprocedural cardiovascular examination [facility] Start: 12-24-2024 Non-patient / Non-visit Dr. Yumiko Carrillo MD -[facility] Work Phone: Start: 12-23-2024 Non-patient / Non-visit Dr. Mckeon [facility] -[facility] Work Phone: Start: 12-23-2024 End: 12-24-2024 ambulatory Major Yi Facility:[facility] Start: 12-23-2024 End: 12-24-2024 Evaluation and management of inpatient Dr. Major Yi DO -Medical Surgical 3 Work Phone: Start: 12-23-2024 End: 12-24-[address] Matt Saul MD Work Phone: -Medical Surgical 3 Start: 11-27-2024 ambulatory Major Carrascoi ty:[facility] Start: 11-27-2024 Non-patient / Non-visit Dr. Seven Grey MD -[facility] Work Phone: Start: 11-26-2024 End: 11-26-[address] Matt Saul MD Work Phone: -Cat Scan [facility] Start: 11-26-2024 End: 11-26-[address] Major Yi DO -Cat Scan [facility] Work Phone: Start: 11-26-2024 End: 11-26-2024 ambulatory Major Yi Facility:[facility] Start: 07-09-2024 End: 07-09-2024 ambulatory Yang WAGGONER [facility] Start: 06-18-2024 End: 06-18-[address] Matt Saul MD Work Phone: [facility] Work Phone: Start: 06-18-2024 End: 06-18-[address] Matt Saul MD -Radiology, [place] Work Phone: Start: 06-18-2024 End: 06-18-2024 ambulatory Matt Colepineland Facility:[facility] Start: 04-04-2024 End: 04-04-[address] Nathan Purcell MD -[facility] Work Phone: Start: 04-04-2024 End: 04-04-2024 ambulatory Nathan Purcell [facility] Start: 02-26-2024 End: 02-26-2024 ambulatory [facility] Facility:[facility] Start: 02-26-2024 End: 02-26-2024 Patient encounter procedure Maddie Bernstein APRN.[employer]ISH HOUSE WORKER Work Phone: General Surgery Comment on above: History of colonic p olyps (Primary Dx) Start: 02-19-2024 End: 02-19-2024 ambulatory [facility] Facility:[facility] Start: 02-19-2024 End: 02-19-2024 Subsequent hospital visit by physician Demetri Lord MD Work Phone: Ambulatory Surgery Comment on above: History of colonic p olyps [Z86.0100] Start: 02-16-2024 End: 02-16-2024 ambulatory [facility] Facility:[facility] Start: 02-16-2024 End: 02-16-2024 Patient encounter procedure Maddie Bernstein APRN.[employer] HOU[employer] WORKER Work Phone: General Surgery Comment on above: History of colonic p olyps (Primary Dx); Screen for colon cancer Start: 02-16-2024 End: 03-18-2024 Telephone encounter Molly VEGA General Surgery Comment on above: 02-19-2024 [facility] Start: 08-17-2023 End: 08-18-2023 Emergency department patient visit Dr. Matt Saul Work Phone: [facility]-Emergency Department Work Phone: Start: 05-17-2023 End: 05-17-[address] Matt Saul Work Phone: [facility] Work Phone: Start: 03-15-2023 Non-patient / Non-visit Dr. Jabier Saul Work Phone: [facility] Work Phone: Start: 03-14-2023 Non-patient / Non-visit Dr. Jabier Saul Work Phone: [facility] Start: 03-14-2023 End: 03-14-[address] Armond Saul Work Phone: [facility] Work Phone: Start: 03-14-2023 End: 03-14-[address] Armond Saul Work Phone: [facility]Cardi[facility] Work Phone: Start: 02-08-2023 End: 02-08-[address] Armond Saul Work Phone: [facility] Work Phone: Start: 05-20-2022 Non-patient / Non-visit Dr. Jabier Saul Work Phone: [facility] Start: 05-17-2022 Non-patient / Non-visit Dr. Jabier Saul Work Phone: [facility] Start: 05-17-2022 End: 05-17-[address] Armond Saul Work Phone: [facility] Work Phone: Start: 05-17-2022 End: 05-17-[address] [facility]ond [facility] Start: 05-04-[address] Rowdy Saul Work Phone: [facility] Start: 02-08-2022 End: 02-08-[address] Armond Saul Work Phone: [facility] Procedures Date Procedure Procedure Detail [...] dx w/collj spec when pfrmd Maddie Bernstein SPA SUPERVISOR.[employer] HOUSE WORKER Work Phone: Start: 02-19-2024 Colonoscopy Demetri abernathy [...] - S marciano or Plasma Maddie Bernstein APRN.[employer] HOU[employer] WORKER Work Phone: Start: 03-31-2014 End: 04-02-2014 *Hepatic [...] P,Tdap,Td Vaccine (4 - Td or Tdap) [facility] Start: 02-18-2027 Screening for malign ant neoplasm of colon [facility] Start: 12-24-2024 Patient discharge [facility] Start: 12-23-2024 Care regimes management [facility] Start: 12-23-2024 Notification of physician [facility] Start: 12-23-2024 [facility] Start: 12-23-2024 Application of intermittent pneumatic compression device [facility] Start: 12-23-2024 Following clinical p athway protocol [facility] Start: 12-23-2024 Anes arthroscopic to bernard shoulder replacement ANESTH SHOULDER REPLACEMENT [facility] Start: 12-23-2024 Prosthetic total arthroplasty of left shoulder RECONSTRUCT SHOULDER JOINT [facility] Start: 12-23-2024 Admission procedure [facility] Start: 12-23-2024 Ambulation therapy management [facility] Start: 12-23-2024 Application of device [facility] Start: 12-23-2024 Assessment of risk o f venous thromboembolism [facility] Start: 12-23-2024 Catheterization of vein [facility] Start: 12-23-2024 Following clinical p athway protocol [facility] Start: 12-23-2024 Incentive spirometry [facility] Start: 12-23-2024 Introduction of urin angeline catheter [facility] Start: 12-23-2024 Measuring intake and output [facility] Start: 12-23-2024 Neurovascular assessment [facility] Start: 12-23-2024 Patient education [facility] Start: 12-23-2024 Procedure discontinued [facility] Start: 12-23-2024 Provision of activit y privileges [facility] Start: 12-23-2024 Recommendation to co ritika with treatment [facility] Start: 12-23-2024 Referral to occupati onal therapist [facility] Start: 12-23-2024 Vital signs measurements [facility] Start: 12-23-2024 Wound care [facility] Start: 12-23-2024 [facility] Start: 12-23-2024 Consultation [facility] Start: 02-26-2024 End: 02-26-2024 Patient encounter procedure 02/26/2024 1:00 PM EST Office Visit General Surgery [address] [place] [address] Maddie Bernstein APRN.[employer] HOU[employer] WORKER [address] [place] [address] Colonsocopy follow up 02-19-2024 General Surgery Comment on above: Colonsocopy follow u p 02-19-2024 Start: 02-19-2024 End: 02-19-2024 Patient encounter procedure 02/19/2024 11:45 AM EST Appointment Ambulatory Surgery [address] [place] [address] Demetri Lord MD [address] [place] [address] Ambulatory Surgery Start: 08-18-2023 [facility] Start: 08-17-2023 [facility] Start: 07-01-2023 Screening for malign ant neoplasm of colon [facility] Start: 04-17-2023 Advance Directive Discussion Advance Directive Discussion [facility] Start: 03-21-2022 Diabetes Screening Diabetes Screenin g [facility] Start: 11-15-2021 Pneumococcal Vaccine : 65+ (2 of 2 - PPSV23 or PCV20) Pneumococcal Vaccine: 65+ (2 of 2 - PPSV23 or PCV20) [facility] Start: 04-02-2019 Lipid panel Lipid Screening [facility] Start: 05-11-2017 End: 05-11-2017 Appointment Appointment [facility] Work Phone: Start: 11-08-2016 End: 11-08-2016 Appointment Appointment [facility] Work Phone: Start: 11-08-2016 End: 11-08-2016 *Hepatic Function Panel *Hepatic Function Panel [facility] Work Phone: Start: 11-08-2016 End: 11-08-2016 GERRY GARRETT [facility] Work Phone: Start: 11-08-2016 End: 11-08-2016 Follow Up Appt 6 months Follow Up Appt 6 months [facility] Work Phone: Start: 11-08-2016 End: 11-08-2016 Lipid 1996 panel *Lipid Profile CC PCP [facility] Work Phone: Start: 10-19-2016 End: 11-08-2016 *Hepatic Function Panel *Hepatic Function Panel [facility] Work Phone: Start: 10-19-2016 [...] Lipid panel [AGGREGATE] *Lipid Profile CC PCP [facility] Work Phone: Start: 03-31-2015 End: 04-08-2015 *Hepatic Function Panel *Hepatic Function Panel [facility] Work Phone: Start: 03-31-2015 End: 03-31-2015 GERRY GARRETT [facility] Work Phone: Start: 03-31-2015 End: 03-31-2015 Follow Up Appt 1 year Follow Up Appt 1 year [facility] Work Phone: Start: 03-31-2015 End: 04-08-2015 Lipid panel [AGGREGATE] *Lipid Profile CC PCP [facility] Work Phone: Start: 12-29-2014 End: 12-30-2014 Stress Echocardiogram (treadmill) Stress Echocardiogram (treadmill) [facility] Work Phone: Start: 03-31-2014 End: 04-02-2014 *Hepatic Function Panel *Hepatic Function Panel [facility] Work Phone: Start: 03-31-2014 End: 03-31-2014 GERRY GERRY [facility] Work Phone: Start: 03-31-2014 End: 03-31-2014 Follow Up Appt 1 year Follow Up Appt 1 year [facility] Work Phone: Start: 03-31-2014 End: 04-02-2014 Lipid panel [AGGREGATE] *Lipid Profile CC PCP [facility] Work Phone: Start: 03-31-2014 End: 03-31-2014 Stress Echocardiogram (treadmill) Stress Echocardiogram (treadmill) [facility] Work Phone: Start: 06-10-2013 End: 06-10-2013 GERRY GERRY [facility] Work Phone: Start: 06-10-2013 End: 06-10-2013 Follow Up Appt 1 year Follow Up Appt 1 year [facility] Work Phone: Start: 03-25-2013 End: 03-25-2013 GERRY GERRY [facility] Work Phone: Start: 03-25-2013 End: 03-25-2013 Follow Up Appt 1 year Follow Up Appt 1 year [facility] Work Phone: Start: 08-07-2005 Hepatitis B surface antibody level LDL Cholesterol [facility] Start: 1993 Screening for malign ant neoplasm of colon [facility] Start: 1966 Annual PCP Team [employer] kavin Disease Visit Annual PCP Team Chronic Disease Visit [facility] Start: 1966 BP Controlled (<130/80) BP Controlle d (<130/80) [facility] Start: 1966 Depression Screening Depression Scre ening [facility] Start: 1966 Hepatitis C screening Hepatitis C [facility] Patient Education [facility] Work Phone: Patient referral [facility] Work Phone: End: 02-15-2025 Screening colonoscopy COLONOSCOPY SCREENING Endoscopy Routine History of colonic polyps Screen for colon cancer 1 Occurrences starting 02/16/2024 until 02/15/2025 [facility] Work Phone: Comment on above: 1 Occurrences starti ng 02/16/2024 until 02/15/2025 SURGICAL PATHOLOGY [facility] Work Phone: Comment on above: Release Upon Orderin g for 1 Occurrences starting 02/19/2024, 1 completed Immunizations Immunization Date Immunization Notes Care Provider Fa cility 07-13-2020 Covid (Moderna) Dr. Selena Saul Work Phone: [facility] 06-15-2020 Kia (Moderna) Dr[facility] Selena [facility] Work Phone: [facility] [facility] 01-30-2014 influenza, seasonal, injectable Maddie Jakob SPA SUPERVISOR.F[employer] HOUSE WORKER Work Phone: [facility] Work Phone: 02-09-2013 influenza virus vaccine, unspecified formulation Maddie Jakob SPA SUPERVISOR.F[employer] HOUSE WORKER Work Phone: [facility] 06-11-2012 tetanus toxoid, reduced diphtheria toxoid, and acellular pertussis vaccine, adsorbed Maddie Jakob SPA SUPERVISOR.FISH HOUSE WORKER Work Phone: [facility] 06-11-2012 zoster vaccine, live Kimberl ey Jakob SPA SUPERVISOR.FISH HOUSE WORKER Work Phone: [facility] 02-05-2011 influenza virus vaccine, unspecified formulation Maddie Jakob SPA SUPERVISOR.FISH HOUSE WORKER Work Phone: [facility] 01-26-2010 influenza virus vaccine, unspecified formulation Maddie Jakob SPA SUPERVISOR.FISH HOUSE WORKER Work Phone: [facility] Work Phone: 01-21-2009 influenza virus vaccine, unspecified formulation Maddie Jakob SPA SUPERVISOR.FISH HOUSE WORKER Work Phone: [facility] Work Phone: 02-21-2008 influenza virus vaccine, unspecified formulation Maddie Jakob SPA SUPERVISOR.FISH HOUSE WORKER Work Phone: [facility] Work Phone: 02-20-2007 influenza virus vaccine, unspecified formulation Maddie Jakob HALL Work Phone: [facility] 07-21-2003 tetanus and diphther ia toxoids, adsorbed, preservative free, for adult use (2 Lf of tetanus toxoid and 2 Lf of diphtheria toxoid) Maddie Jakob HALL Work Phone: [facility] Payers Date Payer Category Payer Self-pay [id number] 2017 Private Health Insurance AETNA S UPPLEMENT AETNA MEDICARE SUPPLEMENT [id number] 2017-Present [phone] [address] [address] [place] [address] Indemnity [id number] 2017 Private Health Insurance [facility] [id number] 2014 Unknown [id number] 2013 Medicare MEDICARE MEDICAR E A AND B [id number] 2013-Present [phone] [address] [address] [place] [address] Medicare [id number] 2013 Medicare [id number] Unknown [id number] Unknown [id number]. 2.462 Unknown [id number]. 2.462 Unknown [id number]. 2.462 Unknown [id number] [id number]. 2.462 Unknown [id number] [id number]. 2.462 Unknown [id number] [id number]. 2.462 Unknown [id number] [id number]. 2.462 Unknown [id number] [id number]. 2.462 Unknown [id number] [id number]. 2.462 Unknown [id number]. 2.462 Social History Date Type Detail Facility Start: 02-08-2022 End: 08-17-2023 Tobacco smoking status AKIS Unknown if ever smoked [facility] Start: 1950 Sex Assigned At Male [facility] Start: 07-20-2017 End: 12-03-2024 Tobacco smoking status AKIS Never smoked tobacco [facility] Start: 07-20-2017 Tobacco use and exposure Smokeless tobacco non-user [facility] Start: 02-16-2024 End: 02-23-2024 Alcoholic beverage intake Current non-drinker of alcohol (finding) [facility] Start: 02-16-2024 End: 02-19-2024 History of Social function [facility] Start: 02-16-2024 End: 02-19-2024 Tobacco use panel [facility] National Score (1-10 0), lower number is lower risk 75 [facility] Start: 1950 Sex assigned at Not on file [facility] Start: 07-03-2024 Sex Male (finding) [facility] Medical Equipment Procedure Code Equipment Code Equipment Origin al Text Equipment Identifier Dates GLENOSPHERE FDA Start: 12-23-2024 HUMERAL STEM FDA Start: 12-23-2024 HUMERAL SYSTEM FDA Start: 09-08-2025 LATERALIZED BASEPLATE FDA Sta rt: 12-23-2024 SCREW FDA Start: 12-23-2024 SHORT POST FDA Start: 12-23-2024 Goals Date Patient Goal Desired Activity /State Functional Status Date Assessment Result Facility 12-24-2024 Functional status Ambulates [facility] Work Phone: Mental Status Date Assessment Result Facility 12-24-2024 Cognitive function Level Of Cons ciousness Awake;Alert;Appropriate;Follow s Commands [facility] Work Phone: 12-24-2024 Cognitive function Voice/Name [facility] Work Phone: 08-17-2023 Cognitive function Voice/Name [facility] Work Phone: Clinical Notes 08-17-2006 to 12-24-2024 Note Date & Type Note Facility 12-24-2024 Discharge summary Note Date/Time December 24, 2024 11:59am [facility] Medical Records Department [address] [place] [address] Discharge Summary 12/24/24 1018 MR#: [id number] Acct: [id number] Name: MARIA E GUTHRIE Rep #:[id number] : 1950 74 From: Oneyda WAGGONER PCP: Dr. Matt Saul MD Status :ADM BAR Location: [place] [address] Providers Date of Admission: 12/23/24 Date of [...] IMPRESSION: Right shoulder reverse arthroplasty. Reading Location: [place] [address] D/C Instructions Discharge Activity: May Shower Weight [...] Dr. Matt Saul MD; EDILSON Diaz~ Signed [facility] Work Phone: 1(916) 992-662309-09-2025 Discharge summary [facility] Medical Records Department [address] [place] [address] Discharge Summary 12/24/24 1018 MR#: [id number] Acct: [id number] Name: MARIA E GUTHRIE Rep #:[id number] : 1950 74 From: Oneyda WAGGONER PCP: Dr. Matt Saul MD Status :ADM BAR Location: [place] [address] Providers Date of Admission: 12/23/24 Date of [...] IMPRESSION: Right shoulder reverse arthroplasty. Reading Location: [place] [address] D/C Instructions Discharge Activity: May Shower Weight [...] Dr. Matt Saul MD; EDILSON Diaz~ Signed [facility]09-09-2025 Progress note Author Major Carrillo [facility] Note Date/Time December 24, 2024 9:42am [facility] Medical Records Department [address] [place] [address] Progress Note - Hospitalist 12/24/24913 MR#: [id number] Acct: [id number] Name: MARIA E GUTHRIE Rep #:[id number] : 1950 74 From: Major mathews MD PCP: Dr. Matt Saul MD Status :ADM BAR Location: [place] [address]-1 Subjective Subjective Doing well, pain is controlled [...] IMPRESSION: Right shoulder reverse arthroplasty. Reading Location: [place] [address] Physical Exam Narrative General: Alert, Oriented x3, [...] with questions Charges/Coding Visit Charges Inpatient E&M: 01076 Subs Hosp L2 12/24/24 0942 <Electronically signed by Major Carrillo MD> Cosigner Signature (if applicable): CC: ~ Signed ADDENDUM by Dr. Major Carrillo MD on 12/24/24 at 0942 Visit Charges Office Visits / Consults: 78888 OV L3 Est 20min 12/24/24 0942<Electronically signed by Major Carrillo MD> Cosigner Signature (if applicable): cc: ~* Signed [facility] Work Phone: 1(197) 342-774809-09-2025 [facility] Medical Records Department [address] [place] [address] Discharge Summary 12/24/24 1018 MR#: [id number] Acct: [id number] Name: MARIA E GUTHRIE Rep #: [id number] : 1950 74 From: Oneyda WAGGONER PCP: Dr. Matt Saul MD Status:ADM BAR Location: [address] Providers Date of Admission: 12/23/24 Date [...] 20 H, Creatinine 1.01 (more content not included)...[facility]09-09-[address] [facility] Medical Records Department [address] [place] [address] Progress Note - Hospitalist 12/24/24913 MR#: [id number] Acct: [id number] Name: MARIA E GUTHRIE Rep #:[id number] : 1950 74 From: Major mathews MD PCP: Dr. Matt Saul MD Status :ADM BAR Location: [place] [address] Subjective Subjective Doing well, pain is controlled [...] IMPRESSION: Right shoulder reverse arthroplasty. Reading Location: [place] [address] Physical Exam Narrative General: Alert, Oriented x3, [...] with questions Charges/Coding Visit Charges Inpatient E&M: 90209 Subs Hosp L2 12/24/24 0942 Cosigner Signature (if applicable): CC: ~ Signed ADDENDUM by Dr. Major Carrillo MD on 12/24/24 at 0942 Visit Charges Office Visits / Consults: 23458 OV L3 Est 20min 12/24/24 0942 Cosigner Signature (if applicable): cc: ~* Signed [facility]09-08-2025 Consult note Author Hansel Sultana [facility] Note Date/Time December 23, 2024 8:16pm [facility] Medical Records Department [address] [place] [address] Consultation - Hospitalist 12/23/24 1608 MR#: [id number] Acct: [id number] Name: MARIA E GUTHRIE Rep #:[id number] : 1950 74 From: Hansel foreman DO PCP: Dr. Matt Saul MD Status :ADM BAR Location: [place] [address] Assessment & Plan Assessment/Plan (1) Right rotator cuff tear arthropathy: PLAN: Plan Patient is a 74-year-old male who presented to [facility] on 12/23/2024 for planned right shoulder [...] is a 74 M who presented to [facility] on 12/23/2024 for planned orthopedic procedure. [...] No other acute concerns at this time. 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 Reading Location: [place] [address] Charges/Coding Visit Charges Inpatient E&M: 06055 Subs Hosp L2 12/23/242015 <Electronically signed by Hansel Sultana DO> Cosigner Signature (if applicable): CC: Dr. Matt Saul MD; Dr. Major Yi DO~ Signed [facility] Work Phone: 1(236) 229-357809-08-[address] [facility] Medical Records Department [address] [place] [address] Consultation - Hospitalist 12/23/24 1608 MR#: [id number] Acct: [id number] Name: MARIA E GUTHRIE Rep #:[id number] : 1950 74 From: Hansel foreman DO PCP: Dr. Matt Saul MD Status :ADM BAR Location: [place] [address] Assessment & Plan Assessment/Plan (1) Right rotator cuff tear arthropathy: PLAN: Plan Patient is a 74-year-old male who presented to [facility] on 12/23/2024 for planned right shoulder [...] is a 74 M who presented to [facility] on 12/23/2024 for planned orthopedic procedure. [...] No other acute concerns at this time. [facility] Medical History Wears hearing aid Wears glasses Wears partial dentures History of steroid therapy Arthritis Dietary restriction Non-smoker History of echocardiogram History of stress test Cardiology follow-up encounter Diabetes Myocardial infarct Hypertension Osteoarthritis Gout Atherosclerosis of coronary artery of upper [place] heart without angina pectoris Hyperlipidemia Home Medications [...] Type Severity Reaction Status Date / Time Wvwxniv-TUL-DsN Reductase AdvReac Mild myalgias Verified 12/23/24 10:26 Inhibitor (Uassfqr-Ply-Lal Reductase Inhibitor) Family History Brother CAD (coronary [...] IMPRESSION: Right shoulder reverse arthroplasty. Reading Location: [place] [address] Charges/Coding Visit Charges Inpatient E&M: 59024 Subs Hosp L2 12/23/242015 Cosigner Signature (if applicable): CC: Dr. Matt Saul MD; Dr. Major Yi, DO~ Signed [facility]09-08-2025 Consult note Author Osei Lubin [facility] Note Date/Time December 23, 2024 2:33pm [facility] Medical Records Department [address] [place] [address] Anesthesia Postop Eval II 12/23/24 1433 MR#: [id number] Acct: [id number] Name: MARIA E GUTHRIE Rep #:[id number] : 1950 74 From: Osei Choudhury PCP: Dr. Matt Saul MD Status :ADM BAR Y Race: C Location: [place] [address] Anesthesia Postop Eval I Sum Postop Eval Completion status Anesthesia document: Postop Eval 1 completed: Yes Anesthesia Postop Eval I Summary Anesthesia Postop Eval I Summary: Anesthesia Postop Eval I: Assessment Summary Airway patent Yes 12/23/24 13:32 COUNSEL[employer] FAMILY.CSIR Spontaneous unlabored Yes 12/23/24 13:32 COUNSEL[employer]RIAGE [employer] FAMILY.CSIR respirations Mental status nausea No 12/23/24 13:32 COUNSEL[employer]AGE [employer] FAMILY.CSIR Vomiting No 12/23/24 13:32 COUN[employer]AGE [employer] FAMILY.CSIR Anesthesia Postop Eval I: Fluid Summary Crystalloid volume administer 1,300 12/23/24 13:32 COUN[employer]AGE [employer] FAMILY.CSIR (ml) Colloids volume administered ( ml) Blood Product volume administered (ml) Total IV fluid infused 1,300 12/23/24 13:32 COUNSEL[employer]RIAGE [employer] FAMILY.CSIR Anesthesia Postop Eval I: Summary Notes Anesthesia Complication No 12/23/24 13:32 COUN[employer] FAMILY.CSIR Anesthesia Complication Comment: Post-operative progress note Anesthesia: Postop Eval II Evaluation Mental status: Awake and Calm Pain Level: 1 nausea: No Vomiting: No Complications Anesthesia Complication: No 12/23/24 1433 <Electronically signed by Osei Lubin MD> Date _ Osei Lubin MD Cosigner Signature: Date CC: ~ Signed [facility] Work Phone: 1(219) 450-691209-08-2025 Consult note Author Priscilla Willard [facility] Note Date/Time December 23, 2024 1:33pm [facility] Medical Records Department [address] [place] [address] Anesthesia Postop Eval I 12/23/24 1332 MR#: [id number] Acct: [id number] Name: MARIA E GUTHRIE Rep #:[id number] : 1950 74 From: Priscilla Willard CRNA PCP: Dr. Matt Saul MD Status :REG SDC Y Race: C Location: [place] [address] Anesthesia: Postop Eval I Current Vital Signs [...] Priscilla cruz CRNA> Date _ Priscilla Willard [employer]SEL[employer]RIAGE [employer] FAMILY Cosigner Signature: Date CC: ~ Signed [facility] Work Phone: 1(534) 190-987009-08-2025 Evaluation note* Diagnosis Onset Date Resolution Status Admit Date Right rotator cuff tear arthropathy acute December 23 1:06pm Status post reverse total arthroplasty of right shoulder acute S epte2024 1:06pm [facility] Work Phone: 1(473) 590-546609-08-2025 Evaluation note* Diagnosis Onset Date Resolution Status Admit Date Right rotator cuff tear arthropathy inactive Maureen 8th, 2 025 1:06pm Status post reverse total arthroplasty of right shoulder inactive December 23 1:06pm [facility] Work Phone: 1(148) 279-291109-08-2025 Consult note [facility] Medical Records Department [address] [place] [address] Anesthesia Postop Eval II 12/23/24 1433 MR#: [id number] Acct: [id number] Name: MARIA E GUTHRIE Rep #:[id number] : 1950 74 From: Osei Choudhury PCP: Dr. Matt Saul MD Status :ADM BAR Y Race: C Location: [address] Anesthesia Postop Eval I Sum Postop Eval Completion status Anesthesia document: Postop Eval 1 completed: Yes Anesthesia Postop Eval I Summary Anesthesia Postop Eval I Summary: Anesthesia Postop Eval I: Assessment Summary Airway patent Yes 12/23/24 13:32 COUN[employer] FAMILY.CSIR Spontaneous unlabored Yes 12/23/24 13:32 COUN[employer] FAMILY.CSIR respirations Mental status nausea No 12/23/24 13:32 COUNSEL[employer]AGE [employer] FAMILY.CSIR Vomiting No 12/23/24 13:32 COUNSEL[employer]AGE [employer] FAMILY.CSIR Anesthesia Postop Eval I: Fluid Summary Crystalloid volume administer 1,300 12/23/24 13:32 COUN[employer]AGE [employer] FAMILY.CSIR (ml) Colloids volume administered ( ml) Blood Product volume administered (ml) Total IV fluid infused 1,300 12/23/24 13:32 COUN[employer]AGE [employer] FAMILY.CSIR Anesthesia Postop Eval I: Summary Notes Anesthesia Complication No 12/23/24 13:32 [employer] FAMILY.CSIR Anesthesia Complication Comment: Post-operative progress note Anesthesia: Postop Eval II Evaluation Mental status: Awake and Calm Pain Level: 1 nausea: No Vomiting: No Complications Anesthesia Complication: No 12/23/24 1433 MD> Date _ Osei Lubin MD Cosigner Signature: Date CC: ~ Signed [facility]09-08-2025 Radiology Diagnostic study note [facility] Imaging Services [address] [place] [address] Shoulder min 2 Views MR#: [id number] Acct: [id number] Name: MARIA E GUTHRIE Rep #: [id number] : 1950 M 74 From: Zhou Suárez MD PCP: Dr. Matt Saul MD Status: REG [facility] Study:Shoulder min 2 Views Date of Exam: 12/23/24 Exam# [id number] Ordering Dr: Major Yi DO PROCEDURE: SHOULDER [...] IMPRESSION: Right shoulder reverse arthroplasty. Reading Location: [place] [address] CC: Dr. Matt Saul MD; Dr. Major Yi DO ~ It Service Manager: Signed [facility]09-08-2025 Consult note [facility] Medical Records Department [address] [place] [address] Anesthesia Postop Eval I 12/23/24 1332 MR#: [id number] Acct: [id number] Name: MARIA E GUTHRIE Rep #:[id number] : 1950 74 From: Priscilla Willard CRNA PCP: Dr. Matt Saul MD Status :[facility] Y Race: C Location: [place] [address] Anesthesia: Postop Eval I Current Vital Signs Temperature: 97 F Pulse Rate: 89 Blood Pressure: 145/87 Respiratory Rate: 18 Pulse Ox: 93 Assessment Airway patent: Yes Spontaneous unlabored respirations: Yes nausea: No Vomiting: No Anesthesia Complication: No Fluid Hydration Crystalloid volume administer (ml): 1,300 Total IV fluid infused: 1,300 Progress Note Anesthesia document: Postop Eval 1 completed: Yes 12/23/24 1333 a [employer] FAMILY> Date _ Priscilla Willard COUN[employer]RIAGE [employer] FAMILY Cosigner Signature: Date CC: ~ Signed [facility]09-08-2025 Procedure note [facility] Medical Records Department [address] [facility] [place] [address] Operative Report 12/23/24 1322 MR#: [id number] Acct: [id number] Name: MARIA E GUTHRIE Rep #:[id number] : 1950 74 From: Major lake DO PCP: Dr. 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 A well-padded templer head was applied. The nonoperative extremity was placed in a wellarm raaz. He was then brought into the beachchair [...] appropriate depth with good press-fit purchase. A [place] was used to confirm depth. Cortical screws [...] operative suite. He was transferred to the [place] and subsequently to PACU in stable condition. Need for skilled orthodontic technician assistant: Oneyda Solano PA-C was critical to the outcome of thecase. During the course of the procedure the physician orthodontic technician assistant played a vitalrole. Her intimate knowledge [...] Saul MD; Dr. Major Yi, DO~ Signed [facility]09-08-2025 Consult note Author Osei Lubin [facility] Note Date/Time December 23, 2024 10:57am [facility] Medical Records Department [address] [place] [address] Pre-Anesthesia Evaluation 12/23/24 1052 MR#: [id number] Acct: [id number] Name: MARIA E GUTHRIE Rep #:[id number] : 1950 74 From: Osei Choudhury PCP: Dr. Matt Saul MD Status :[place] [facility] Y Race: C Location: [place] [address] ASA Classification* ASA Classification ASA Classification: 2 [...] SHOULDER ARTHROPLASTY Anesthesia History Anesthesia History - folder machine: Anesthesia History - folder machine Hx Hospitalization No 12/03/24 10:59 Any Problems [...] take am of surgery PONV PONV - folder machine: PONV - folder machine Female No 12/03/24 10:59 HX of Motion [...] 12/23/24 10:31 Respiratory Assessment Respiratory Assessment - folder machine: Respiratory Tract Infection Hx - folder machine Hx Respiratory Tract Infection No 12/03/24 10:59 STOP Sleep Apnea STOP Sleep Apnea - folder machine: STOP Sleep Apnea - folder machine Hx Hypertension Yes: CONTROLLED WITH MED 12/03/24 [...] Tobacco Use History Tobacco Use History - folder machine: Tobacco Use History - folder machine Tobacco Use Smoking Status Never smoker 12/03/24 10:59 Hx Tobacco Use No 12/03/24 10:59 Years Smoking Packs Smoked per Day Smoking Cessation Date was within the last 15 years Hx Smoking Cessation Date Hx Smoking Cessation Counseling Hematologic Medial History Hematologic Hx - folder machine: 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 Hx of Blood Transfusion No 12/03/24 10:59 [...] confused, unrespo /Reproduction History /Reproductive History - folder machine: /Reproductive Hx- folder machine Hx Now No 12/03/24 10:59 Gestational Age [...] Osteoarthritis Gout Atherosclerosis of coronary artery of upper [place] heart without angina pectoris Hyperlipidemia Home Medications [...] Type Severity Reaction Status Date / Time Ctrtqqq-RVZ-WmG Reductase AdvReac Mild myalgias Verified 12/23/24 10:26 Inhibitor (Dvydhts-Tmr-Wqk Reductase Inhibitor) Family History Brother CAD (coronary [...] MD Cosigner Signature: Date CC: ~ Signed [facility] Work Phone: 1(871) 159-621409-08-2025 Consult note [facility] Medical Records Department [address] [place] [address] Pre-Anesthesia Evaluation 12/23/24 1052 MR#: [id number] Acct: [id number] Name: MARIA E GUTHRIE Rep #:[id number] : 1950 74 From: Osei Choudhury PCP: Dr. Matt Saul MD Status :REG SDC Y Race: C Location: [place] [address] ASA Classification* ASA Classification ASA Classification: 2 [...] SHOULDER ARTHROPLASTY Anesthesia History Anesthesia History - folder machine: Anesthesia History - folder machine Hx Hospitalization No 12/03/24 10:59 Any Problems [...] take am of surgery PONV PONV - folder machine: PONV - folder machine Female No 12/03/24 10:59 HX of Motion [...] 12/23/24 10:31 Respiratory Assessment Respiratory Assessment - folder machine: Respiratory Tract Infection Hx - folder machine Hx Respiratory Tract Infection No 12/03/24 10:59 STOP Sleep Apnea STOP Sleep Apnea - folder machine: STOP Sleep Apnea - folder machine Hx Hypertension Yes: CONTROLLED WITH MED 12/03/24 [...] Tobacco Use History Tobacco Use History - folder machine: Tobacco Use History - folder machine Tobacco Use Smoking Status Never smoker 12/03/24 10:59 Hx Tobacco Use No 12/03/24 10:59 Years Smoking Packs Smoked per Day Smoking Cessation Date was within the last 15 years Hx Smoking Cessation Date Hx Smoking Cessation Counseling Hematologic Medial History Hematologic Hx - folder machine: 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 Hx of Blood Transfusion No 12/03/24 10:59 [...] confused, unrespo /Reproduction History /Reproductive History - folder machine: /Reproductive Hx- folder machine Hx Now No 12/03/24 10:59 Gestational Age [...] Osteoarthritis Gout Atherosclerosis of coronary artery of upper [place] heart without angina pectoris Hyperlipidemia Home Medications [...] Type Severity Reaction Status Date / Time Vnhbkzz-JAM-VbS Reductase AdvReac Mild myalgias Verified 12/23/24 10:26 Inhibitor (Mwrnluk-Ipv-Doc Reductase Inhibitor) Family History Brother CAD (coronary [...] MD Cosigner Signature: Date CC: ~ Signed [facility]08-14-2025 Radiology Diagnostic study note [facility] Imaging Services [address] [place] [address] Extremity Upper without Contra MR#: [id number] Acct: [id number] Name: MARIA E GUTHRIE Rep #: [id number] : 1950 M 74 From: Sean Garcia MD PCP: Dr. Matt Saul MD Status: REG CLI Study:Extremity Upper without Contra Date of Exam: 11/26/24 Exam# [id number] Ordering Dr: Major Yi DO PROCEDURE: EXTREMITY [...] Saul MD; Dr. Major Yi DO ~ It Service Manager: Signed [facility]03-04-2025 Radiology Diagnostic study note [facility] Imaging Services [address] [place] [address] [id number] Ankle min 3 Views MR#: [id number] Acct: [id number] Name: MARIA E GUTHRIE Rep #: [id number] : 1950 M 74 From: Shannon Joshua MD PCP: Dr. Matt Saul MD Status: REG CLI Study:Ankle min 3 Views Date of Exam: Exam# [id number] Ordering Dr: Luna Saul MD EXAM: XR [...] evaluation with CT is recommended. Reading Location[facility] CC: Dr. Matt Saul MD ~ It Service Manager: Signed [facility]03-04-2025 Radiology Diagnostic study note [facility] Imaging Services [address] [place], [place] [address] Foot min 3 Views MR#: [id number] Acct: [id number] Name: MARIA E GUTHRIE Rep #: [id number] : 1950 M 74 From: Laurent Alva MD PCP: Dr. Matt Saul MD Status: REG CLI Study:Foot min 3 Views Date of Exam: 08/09 Exam# [id number] Ordering Dr: Luna Saul MD PROCEDURE: FOOT [...] suggestive of gout. Calcaneal spurs. Reading Location: [id number] CC: Dr. Matt Saul MD ~ It Service Manager: Signed [facility]12-19-2024 Evaluation note* Diagnosis Onset Date Resolution Status Admit Date Essential hypertension chronic De cember 2023 2:13pm History of coronary artery stent placement August 17, 2006 chronic April 04, 2 024 2:13pm Hyperlipidemia chronic March 172023 2:13pm [facility] Work Phone: 1(736) 375-379811-11-2024 History of Present illness Narrative* Maddie Bernstein APRN.FISH HOUSE WORKER - 02/26/2024 1:00 PM EST FOLLOW UP VISIT - ENDOSCOPY Maria E Guthrie 1950 [id number] REFERRING PHYSICIAN: Matt Saul (Rashida) [address] [facility] [address] Maria E Guthrie is a patient I [...] as needed for worsening/no improvement. Maddie Bernstein APRN.FISH HOUSE WORKER documented in this [facility]11-[facility]-2024 NoteHNO ID: [id number] Author: MADDIE BERNSTEIN APRN.FISH HOUSE WORKER Service: ? Author Type: Nurse Practitioner Type: Progress Notes Filed: 02/26/2024 13:03 Note Text: FOLLOW UP VISIT - ENDOSCOPY Maria E Guthrie 1950 [id number] REFERRING PHYSICIAN: Matt Saul (Rashida) [address] [place] [id number] Maria E Guthrie is a patient I [...] as needed for worsening/no improvement. Maddie Bernstein APRN.[facility]11-04-2024 Note* Discharge Instr - Nursing - Estelle Bird RN - 02/19/2024 12:17 PM EST The patient received a copy of Colonoscopy discharge instructions that contain information for how to contact the physician who performed the procedure and when to seek medical care. [facility]11-04-2024 Miscellaneous Notes* Discharge Instr - Nursing - Estelle Bird RN - 02/19/2024 12:17 PM EST The patient received a copy of Colonoscopy discharge instructions that contain information for how to contact the physician who performed the procedure and when to seek medical care. documented in this encounterWexner [facility] Center11-04-2024 NoteHNO ID: [id number] Author: ESTELLE BIRD RN Service: ? Author Type: Registered Nurse Type: Nursing Progress Note Filed: 02/19/2024 12:15 Note Text: Abdomen soft non-distended. Will continue to monitor.[facility] 02-19-2024 Nurse Note* Estelle Bird RN - 02/19/2024 12:00 PM EST Abdomen soft non-distended. Will continue to monitor. [facility]11-04-[facility] Nurse Note* Estelle Bird RN - 02/19/2024 12:00 PM EST Abdomen soft non-distended. Will continue to monitor. documented in this encounterWexner [facility] Center11-04-2024 History and physical note * Demetri Lord [...] Last colonoscopy 06/[address] Park at [facility]. Sedation:Midazolam 5 mg IV, Fentanyl 100 [...] (FLONASE) 50 mcg/actuation nasal spray Use 1 Stella in the nose once daily. cyanocobalamin (VITAMIN [...] entered by the nurse and reviewed by or Nursing Notes: Francisca Spann RN 02/16/2024 2:03 [...] edited and updated as necessary. Maddie Bernstein APRN.FISH HOUSE WORKER UPDATED HISTORY AND PHYSICAL EXAMINATION SERVICE DATE: 02/19/2024 SERVICE TIME: 10:53 AM SENSITIVE EXAMINATION CONSENT: The sensitive examination was discussed with the Patient or Patient's Authorized Insole Bottom Filler. Asapplicable, any other physician, advance practice provider, medical student, or other health professional student that will be observing or involved in the sensitive examination for educational or training purposes was discussed with the Patient or Authorized Insole Bottom Filler. The Patient or Authorized Insole Bottom Filler has agreed to proceed with the sensitive [...] DATE: February 19, 2024 TIME: 10:53 AM [facility]04[facility] History and physical note* Demetri Lord MD - 02/19/2024 11:45 AM EST HISTORY AND PHYSICAL Marai E Guthrie : 1950 REFERRING PHYSICIAN: No [...] Last colonoscopy 06/[address] Park at [facility]. Sedation:Midazolam 5 mg IV, Fentanyl 100 [...] (FLONASE) 50 mcg/actuation nasal spray Use 1 Stella in the nose once daily. cyanocobalamin (VITAMIN [...] entered by the nurse and reviewed by or Nursing Notes: Francisca Spann RN 02/16/2024 2:03 [...] discussed with the Patient or Patient's Authorized Insole Bottom Filler. Asapplicable, any other physician, advance practice provider, medical student, or other health professional student that will be observing or involved in the sensitive examination for educational or training purposes was discussed with the Patient or Authorized Insole Bottom Filler. The Patient or Authorized Insole Bottom Filler has agreed to proceed with the sensitive [...] 2024 TIME: 10:53 AM documented in this encounterWexner Medical Center11-01-2024 Telephone encounter Note * Telephone Encounter - Melanie Marcelino - 02/16/2024 2:34 PM EDT 02-19-2024 Colonoscopy concepción ASC Joyytejolly prep, nurse went over instructions yudy has direct number to contact for any questions or concerns., Instructed patient to arrive at 1045 in ASC [facility]11-01-[facility] Miscellaneous Notes* Telephone Encounter - Melanie Marcelino - 02/16/2024 2:34 PM EDT 02-19-2024 Colonoscopy concepción ASC Joyytejolly prep, nurse went over instructions yudy has direct number to contact for any questions or concerns., Instructed patient to arrive at 1045 in ASC documented in this encounterWexner Medical Center11-01-2024 Nurse Note* Francisca Spann, RN - 02/16/2024 [...] N/A Last Colonoscopy: 07/10/2020 Francisca Spann RN [facility]11-01-[facility]24 History of Present illness Narrative* Maddie Bernstein APRN.FISH HOUSE WORKER - 02/16/2024 2:00 PM EDT HISTORY AND [...] Last colonoscopy 06/[address] Park at [facility]. Sedation:Midazolam 5 mg IV, Fentanyl 100 [...] (FLONASE) 50 mcg/actuation nasal spray Use 1 Stella in the nose once daily. cyanocobalamin (VITAMIN [...] entered by the nurse and reviewed by or Nursing Notes: Francisca Spann RN 02/16/2024 2:03 [...] necessary. Maddie Bernstein APRN.BALJIT documented in this encounterWexner Medical Center11-01-2024 NoteHNO ID: [id number] Author: MADDIE BERNSTEIN APRN.CNP Service: ? Author [...] Last colonoscopy 06/[address] Park at [facility]. Sedation:Midazolam 5 mg IV, Fentanyl 100 [...] (FLONASE) 50 mcg/actuation nasal spray Use 1 Stella in the nose once daily. cyanocobalamin (VITAMIN [...] entered by the nurse and reviewed by or Nursing Notes: Francisca Spann RN 02/16/2024 2:03 [...] denies ulcers, denies vomiting, (more content not included)...[facility]11-01-2024 Nurse Note* Francsica Spann RN - 02/16/2024 2:00 PM EDT [...] 07/10/2020 Francisca Spann RN documented in this encounterWexner Medical Center05-02-2024 Discharge summary Author Joe Joshua [facility] August 18, 2023 12:45am Note Date/Time August 17, 2023 9:52pm [facility] Medical Records Department [address] [place] [address] Emergency Department Summary 08/17/23 MR#: [id number] Acct: [id number] Name: MARIA E GUTHRIE Rep #:[id number] : 1950 73 From: Joe Sage PCP: Dr. Matt Saul MD Status :REG ER Location: ED HPI History of Present Illness Chief Complaint: Chest Pain Informant: patient Narrative Narrative: Intermittent chest pain initially started overnight twinges in his left chest. This evening it returned having intermittent symptoms. He had 1 stent placed [id number]. Diabetes hypertension hyperlipidemia. No cardiac dysrhythmia history. On baby aspirin. No cough. He had traveled yesterday 8-hour drive and return. Noticed leg swelling no leg cramping no dyspnea. Prior Similar Symptoms: No CVD Risk Factors: Positive for Hypertension, Diabetes and Hypercholesterolemia PE Risk Factors: Positive for Recent Travel/[facility] Medical History (Updated 08/18/23 @ 00:[address] Joe Joshua DO) Atherosclerosis of coronary artery of upper [place] heart without angina pectoris Chest pain Coronary [...] DAILY 02/08/22 [History Last Taken Unknown] omega 5-arm-zkd-fish oil 300 mg-1,000 mg capsule (Fish Oil) 2 cap PO BID 02/08/22 [History Last Taken Unknown] allopurinol 300 mg tablet 300 mg PO DAILY 02/08/23 [History Last Taken Unknown] hydrochlorothiazide 25 mg tablet 25 mg PO DAILY 02/08/23 [History Last Taken Unknown] Allergy/AdvReac Type Severity Reaction Status Date / Time Vzsgqeh-IIP-ErD Reductase AdvReac Mild myalgias Verified 08/17/23 21:04 Inhibitor [Edzzzfr-Yza-Ryk Reductase Inhibitor] Family History Brother CAD (coronary [...] it in the room however on the quality assurance monitor final did not know any rhythm changes. Cardiac [...] clinician: N/A This note was generated with [employer] dictation software. It may contain incorrectwords, spelling, [...] 38.9 L Lymph % (Auto) 49.8 H Dupage % (Auto) 10.1 H Eos % (Auto) [...] Chief Complaint: Chest Pain ED Provider: Joe oJshua Dx/Rx/DC Orders Clinical Impression: Palpitations, History of [...] mg tablet 100 mg PO DAILY omega 7-tve-ymg-fish oil [Fish Oil] 300-1,000 mg capsule 2 [...] muscle); rotate sites Pt gets from the PA Primary Care Provider: Matt Saul Referrals: Matt [...] your Primary Care Provider. Call [facility] ([phone]) or report to the closest Emergency Room. Call 911 if necessary. 08/18/23 0045 <Electronically signed by Joe Sage> Cosigner Signature (if applicable): CC: Dr. Matt Saul MD ~ Signed [facility] Work Phone: [phone] Evaluation note* Diagnosis Onset Date Resolution Status Essential hypertension chron ic History of coronary artery stent placement August 17 chronic Hyperlipidemia chronic [facility] Work Phone: Evaluation note* Diagnosis Onset Date Resolution Status Influenza due to influenza virus, type A, human acute [facility] Work Phone: Evaluation note* Diagnosis History of colonic polyps- Primary Personal history of colonic polyps Screen for colon cancer Special screening for malignant neoplasms, colon documented in this encounter [facility]* Diagnosis History of colonic polyps Personal history of colonic polyps Screen for colon cancer Special screening for malignant neoplasms, colon documented in this encounter [facility]* Diagnosis History of colonic polyps- Primary Personal history of colonic polyps documented in this encounter [facility] noteNo assessment information availableWooRegency Hospital [facility] Work Phone: Hospital Discharge instructions Additional Instructions Cardiac workup was negative. Potassium 3.1 orally replaced. Follow-up with your doctor. If symptoms recur and worsens, return to the ED for reevaluation.[facility] Work Phone: Hospital Discharge instructionsAdditional Instructions Date [facility]: [facility] Work Phone: Reason for referral (narrative)* Outpatient Procedure (Routine) - Authorized Specialty Diagnoses / Procedures Referred By Shauna ross Referred To Contact [facility] Diagnoses History of colonic polyps Screen for colon cancer Procedures COLONOSCOPY SCREENING COLONOSCOPY FLX DX W/COLLJ SPEC WHEN Maddie Lozada APRN.CNP [address] [place] [address] [facility] Disease [address] [address] Referral ID Status Reason Start Date Expiration Date Visits Requested Visits Authorized [id number] Authorized Auto-Generat ed Referral 02/16/2024 02/15/2025 1 1 [facility] for referral (narrative)* Outpatient Procedure (Routine) - Closed Specialty Diagnoses / Procedures Referred By Shauna ross Referred To Contact [facility] [place] Diagnoses History of colonic polyps Screen for colon cancer Procedures COLONOSCOPY SCREENING COLONOSCOPY FLX DX W/COLLJ SPEC WHEN Maddie Lozada APRN.CNP [address] [place] [address] [facility] Disease [place] [id number] Referral ID Status Reason Start Date Expiration Date V isits Requested Visits Authorized [id number] Closed Auto-Generate d Referral 02/16/2024 02/15/2025 1 1 [facility] for referral (narrative)No reason for referral information availableWWooster Community Hospital Work Phone: Reason for visit Narrative* Outpatient Procedure (Routine) - Closed Specialty Diagnoses / Procedures Referred By Shauna ross Referred To Contact [facility] Diagnoses History of colonic polyps Screen for colon cancer Procedures COLONOSCOPY SCREENING COLONOSCOPY FLX DX W/COLLJ SPEC WHEN Maddie Lozada, JENNIFER.FISH HOUSE WORKER [address] [place] [address] [facility] [place] [address] Referral ID Status Reason Start Date Expiration Date V isits Requested Visits Authorized [id number] Closed Auto-Generate d Referral 02/16/2024 02/15/2025 1 1 [facility] Chief Complaint and Reason for Visit Chief [...] Relationship Condition Age at Onset Recorded Date/T ijmena brother Coronary artery disease Unknown History of coronary artery bypass surgery Unknown Advance Directives No Advanced Directives Records Found Advance Directive Response Recorded Date/ Time Living Will Yes December 29, 2014 1:26pm Power of Pit Steward Yes December 1:26pm Advance Directive Response Recorded Date/ Time Name of Medical Power of Pit Steward darby feliciano n August 17, 2023 9:53pm Living Will Yes August 17, 2023 9: 53pm Power of Pit Steward Yes August 17, 2023 9:53pm Advance Directive Response Recorded Date/ Time Living Will Yes December 29, 2014 2:26pm Power of Pit Steward Yes December 2:26pm Advance Directive Response Recorded Date/ Time Do you have a Healthcare Power of Pit Steward? Yes December 23, 2024 2:44pm Summary Purpose [...] Primary Care Provider Activ e Dr. Doyle Sandoval MD Attending Provider Active Team Status: Active Member Role Status Dates Dr. Armond Saul MD Primary Care Provider Activ e Bill Murdock C D AREA SUPERVISOR, C D AREA SUPERVISOR-C Attending Provider Active Team Status: Active Member Role Status Dates Dr. Armond Saul MD Primary Care Provider Activ e Self Referred Attending Provider Active Team Status: Inactive Member Role Status Dates Dr. Armond Saul MD Primary Care Provider Activ e Bill Murdock C D AREA SUPERVISOR, C D AREA SUPERVISOR-C Attending Provider Active Team Status: Inactive Member Role Status Dates Dr. Armond Saul MD Primary Care Provider, Refe rring Provider Active Xiomara Renee C D AREA SUPERVISOR, C D AREA SUPERVISOR-C Attending Provider Active Team Status: Active Member [...] Dr. Joe Joshua DO Emergency Provider Active Pump House Engineer Relationship Specialty Start Date End Date Matt Saul MD [address] [facility] [place], [place] [address] PCP - General Family Medicine 06/30/20 Pump House Engineer Relationship Specialty Start Date End Date Matt Saul MD [address] [facility] [place], [place] [address] PCP - General Family Medicine 06/30/20 Pump House Engineer Relationship Specialty Start Date End Date Matt Saul MD [address] [facility] [place], [place] [address] PCP - General Family Medicine 06/30/20 Pump House Engineer Relationship Specialty Start Date End Date Matt Saul MD [address] [facility] [place], [place] [id number] PCP - General Family Medicine 06/30/20 Team [...] or prosecute any alcohol or drug abuse patient.[facility] CenterIn the event this information is protected by the Federal Confidentiality of Alcohol and Drug Abuse Patient Records regulations: The Federal rules restrict any use of the information to criminally investigate or prosecute any alcohol or drug abuse patient.[facility] CenterIn the event this information is protected by the Federal Confidentiality of Alcohol and Drug Abuse Patient Records regulations: The Federal rules restrict any use of the information to criminally investigate or prosecute any alcohol or drug abuse patient.[facility] CenterIn the event this information is protected by the Federal Confidentiality of Alcohol and Drug Abuse Patient Records regulations: The Federal rules restrict any use of the information to criminally investigate or prosecute any alcohol or drug abuse patient.[facility] Reason for Visit (unrecogniz ed section and content) Reason Comments Consult colonoscopy Reason Comments Follow Up Review colonoscopy r esults. Reason Comments 02-19-2024 Colonscoopy (unrecognized sect ion and content) No Status Records FoundNo Status Records Found INFORMATION SOURCE (unrecogn ized section and content) DATE CREATED AUTHOR 03/19/2024 [facility] DATE CREATED AUTHOR AUTHOR'S ORGANIZ ATION 02/28/2025 [facility] FOR RECORDS PERTAINING TO PATIENTS WHO ARE [...] BE BASED ON THE PRIMARY CLINICAL RECORDS. [employer] provides no warranty or guarantee of the accuracy or completeness of information in this document.
== END 2025-04-05 13:36 | disposition home or self-care (01) ==
LOC: MEDOUTP 12:55 → MS3 12:56
PROVIDERS: PCP Family Medicine; Referring Provider Internal Medicine Infectious Disease; Visit Provider Internal Medicine Infectious Disease
DX: T84.59XA Infection and inflammatory reaction due to other internal joint prosthesis, initial encounter (principal)
CPT/HCPCS: 96365; A4216; J0696

== ENCOUNTER 2025-04-06 12:57 | Outpatient (CLI) | payer MEDICARE, OTHER, SELFPAY ==
[2025-04-06 12:45] VITALS: BP 144/77; PULSE 70; RESP 16; TEMP 36.4; O2SAT 97
[2025-04-06] MEDS: Ceftriaxone 2 GM in 0.9% Normal Saline (50mL MB+) 50 ML IV (12:46)
[2025-04-06] MEDS: 0.9% NaCl PICC Flush IV (12:47)
--- OUTSIDE RECORDS SUMMARY | 2025-04-06 13:00 | XMS RPT_ITS | CCD ---
Author Organization [facility] Care Team Providers Care Material Spreader Name Role Phone FERMIN Blunt, Bailey Keller Unavailable Georgette Oliva Unavailable Unavailable Georgette Tabor Unavailable Unavailable Dr. Armond Saul Primary Care Provider Dr. Armond Saul Referring Provider Dr. Nathan Purcell Attending Provider [phone] Doyle Sandoval Attending Provider [phone] Collette DISTRIBUTING CLERK, DISTRIBUTING CLERK-Luan Grant Attending Provider Dr. Armond Saul Primary Care Provider [phone] Dr. Armond Saul Referring Provider Víctor DISTRIBUTING CLERK, DISTRIBUTING CLERK-Luna Solano Attending Provider Dr. Nathan Purcell Attending Provider [phone] Nathan Purcell Referring Provider [phone] Nathan Purcell Other Provider Collette DISTRIBUTING CLERK, KHAI-Luna Grant Attending Provider Dr. Matt Saul [...] Kg LAZO, Dr. Farley Attending Provider [phone] Kg LAZO, Dr. Farley Primary Care Provider [...] MD Attending Physician Oneyda Spring Attending Physician [phone] Oneyda Spring Referring Provider Yang Romero Attending Unavailable Douglasbrohard, Matt Referring Unavailable [facility] Unavailable Spittle, Major Attending Unavailable Spittle, Major Referring Unavailable Spittle, Major Admitting Unavailable [facility] Unavailable Kotsonis, Major F Consulting Unavailable Spittle, Major Referring Unavailable Spittle, Major Attending [facility]available [facility] Unavailable Spittle, Major Referring Unavailable Spittle, Major Attending Unavailable [facility] Care Unavailable Oneyda Solano Attending Unavailable Oneyda Solano Referring Unavailable [facility] Unavailable Matt Saul Attending Unavailable [facility] Referring Unavailable [facility], Matt Attending Unavailable [facility] Unavailable Spittle, Major Referring Unavailable Seven Grey Attending Unavailable [facility] Unavailable Spittle, Major Referring Unavailable Hansel Sultana Attending Unavailable Spittle, Major Admitting Unavailable Hansel Sultana Consulting Unavailable [facility] Care Unavailable Spittle, Major Consulting Unavailable Kotsonis, Major F Consulting Unavailable Kotsonis, Major F Attending Unavailable Nathan Purcell Attending Unavailable [facility] Care Unavailable [facility] Referring Unavailable Allergies Allergy Classification Reported Allergen(s) Allergy Type Date of Onset Reaction(s) Facility (3 sources) atorvastatin drug allergy 5 myalgia [facility] Work Phone: (3 sources) simvastatin drug allergy 3 myalgias [facility] Work Phone: (3 sources) CRESTOR, PRAVACHOL drug allergy 3 myalgias [facility] Work Phone: (7 sources) Mymochf-Ulf-Nmr Reductase Inhibitor Propensity to adverse reactions 2 myalgias [facility] Comment on above: Lipitor, Crestor, Zo cor (5 sources) Simvastatin; Translations: [SIMVASTATIN] Drug Allergy [address] [facility] Work Phone: (1 source) OTHER; Translations: [OTHER] Propensity to adverse reactions (disorder) [address] [facility] Repository (1 source) Cdcjbzn-Xfk-Upi Reductase Inhibitor Drug allergy (disorder) 5 [facility] Repository Medications Current Medications Medication Drug [...] TABS One tablet by mouth daily ASPIRIN [id number] Shruthi Fajardo RN Start: 06-11-2012 take 1 tablet by keyona th once daily at mealtime Aspirin 81 mg Tab Indications: Coronary atherosclerosis of unspecified type of vessel, [place] or graft Take 1 tablet by mouth once daily. Take with food. 06/11/2012 Active cholecalciferol 0.025 mg ora l tablet (14 sources) Vitamin D Start: 01-21-2020 take 1 tablet by keyona th once daily Start: 01-21-2020 take 2000 [IU] by mo [facility] once daily Cholecalciferol (Vitamin D3) [...] Active docusate sodium 50 mg / sennosides, alf 8.6 mg oral tablet (2 sources) Start: 12-24-2024 fluticasone propionate 0.05 mg/actuat metered dose nasal spray (4 sources) Corticosteroid Start: 05-04-2023 fluticasone (FLONASE) 50 mcg/actuation nasal spray Use 1 Mousie in the nose once daily. 05/04/2023 Active [...] tablet by mouth twice daily METOPROLOL TARTRATE [id number] Mari Reyes RN oxyCODONE hydrochloride 5 mg oral tablet (2 sources) Opioid Agonist Start: 12-24-2024 take 5-10 mg by mouth every four to six hours as needed for pain polyethylene glycol [id number] [id number] mg / potassium chloride 2970 mg / sodium bicarbonate 6740 mg / sodium chloride 5860 mg / sodium sulfate 67342 mg powder for oral solution (1 source) [...] One tablet by mouth daily CLOPIDOGREL BISULFATE [id number] Demetri Patrick MD Cocoa 8-Ivk-Ber-Fish Oil (7 sources) Start: 02-08-2022 End: 04-04-2024 Cocoa 2-Eus-Noz-Fish Oil (Fish Oil) 300-1,000 mg capsule Discontinued 2 NMA PO TWICE A DAY February 08, 2022 12:00am April 04, 2024 3:20pm Start: 02-08-2022 take 300-1000 mg by mouth twice daily Cocoa 9-Jqr-Fss-Fish Oil (Fish Oil) 300-1,000 mg capsule Active 2 CAP PO TWICE A DAY February 08, 2022 12:00am Start: 02-08-2022 take 300-1000 mg by mouth once daily Cocoa 9-Qdj-Tcl-Fish Oil (Fish Oil) 300-1,000 mg capsule Active [...] by mouth daily OMEGA-3 FATTY ACIDS CAPS [id number] Demetri Patrick MD Start: 06-10-2013 End: 03-31-2015 take 1 tablet by mouth once daily FISH OIL CAPS One tablet by mouth daily OMEGA-3 FATTY ACIDS CAPS [id number] Demetri Patrick MD Start: 03-21-2013 End: 03-25-2013 take 1 capsule by mouth once daily FISH OIL CAPS One capsule by mouth daily OMEGA-3 FATTY ACIDS CAPS [id number] Demetri Patrick MD Start: 03-21-2013 take 1 capsule by mo [facility] once daily FISH OIL CAPS One capsule by mouth daily OMEGA-3 FATTY ACIDS CAPS [id number] Shruthi Fajardo RN FLUoxetine 10 mg oral capsule (6 sources) Serotonin Reuptake Inhibitor Start: 03-21-2013 End: 03-25-2013 take 1 tablet by mouth once daily PROZAC 10 MG CAPS One tablet by mouth daily FLUOXETINE HCL [id number] Demetri Patrick MD Start: 03-21-2013 End: 03-25-2013 take 1 tablet by mouth once daily PROZAC 10 MG CAPS One tablet by mouth daily FLUOXETINE HCL [id number] Demetri Patrick MD gemfibrozil 600 mg oral [...] BY PHYSICIAN FOR PROCEDURAL SEDATION ONLY, Intraprocedure Cocoa-3 Fatty Acids (3 sources) Start: 06-09-2013 End: 05-11-2017 take 300 mg by mouth once daily Cocoa-3 Fatty Acids Discontinued 300 MG PO DAILY June 09, 2013 1:00am May 11, 2017 5:09pm Start: 06-09-2013 End: 05-11-2017 take 300 mg by mouth once daily Cocoa-3 Fatty Acids Discontinued 300 MG PO DAILY June 09, 2013 12:00am May 11, 2017 4:09pm Cocoa-3 Fatty Acids 300 MG capsule (4 sources) Start: 06-09-2013 End: 05-11-2017 take 1 capsule by mouth once daily Cocoa-3 Fatty Acids 300 MG capsule Discontinued 300 [...] myocardial infarction; Translations: [Atherosclerotic heart disease of [place] coronary artery without angina pectoris] Onset: 12-24-2008 [...] (current) use of other medications; Translations: [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 [place] [address] / REHABILITATION SERVICES INITIAL EVALUATION MR#: [id number] Acct: [id number] Name: MARIA E GUTHRIE Rep #: [id number] : 1950 74 From: Cesar Holloway DPT [...] to be FAXED BACK to us at [phone] for Medicare purposes. For Medicare only, by signing this I certify the plan of care. Please let me know if there are questions or concerns regarding this plan of care. Physician Signature: Date:__ 01/07/25 1202 CC: Dr. Matt Saul MD; EDILSON Diaz CLS Signed Normal [facility] Microalb:Creat Ratio,Random URon 01-06-2025 Creatinine [Mass/Vol] 68.50 mg/dL Normal 39.00-259.00 [facility] Comment on above: Order Comment: Order Date: 01/06/25 Order Info: [id number] - MIALB Performed By: #### L 502.0250 #### [facility] [address] [place], [place], [id number] MALB:CREAT 322.6 mg/g CRE High <30 mg/g CRE [facility] Comment on above: Order Comment: Order Date: 01/06/25 Order Info: [id number] - MIALB Performed By: #### L 502.0250 #### [facility] [address] [place], [address] MICROALBUMIN,UR 221.0 mg/L Normal <20 mg/L [facility] Comment on above: Order Comment: Order Date: 01/06/25 Order Info: [id number] - MIALB Performed By: #### L 502.0250 #### [facility] [address] [place], [address] Random urine creatinine collin urement (mass/volume)Ordered By: Matt Saul on 01-06-2025 Creatinine Unsp time (U) [Mass/Vol] 68.50 mg/dL 39.00-259.00 [facility] Urine albumin measurement wi detection limit of 20 mg/L or less (mass/volume)Ordered By: Matt Saul on 01-06-2025 Albumin DL <= 20 mg/L (U) [Mass/Vol] 221.0 mg/L <20 mg/L [facility] Anion gap in Serum or Plasma Ordered By: Major Yi on 12-24-2024 Anion gap [Moles/Vol] 15 mmol/L - [facility] BUN/creatinine ratioOrdered By: Major Yi on 12-24-2024 Urea nitrogen/Creatinine [Mass ratio] 19.8 mg/mg - [facility] Basic Metabolic Profile (BMP )on 12-24-2024 BUN/CRE 19.8 RATIO Normal 02-03 [facility] Comment on above: Performed By: #### L 500.2500, L100.0500 ####[facility] [address] [place], [address] Calcium [Mass/Vol] 9.2 mg/dL Normal 7.6-11.0 [facility] Comment on above: Performed By: #### L 500.2500, L100.0500 ####[facility] [address] [place], [address] Chloride [Moles/Vol] 100 mmol/L Normal 98-108 [facility] Comment on above: Performed By: #### L 500.2500, L100.0500 ####[facility] [address] [place], [address] CO2 [Moles/Vol] 19.6 mmol/L Low 21.0-32.0 [facility] Comment on above: Performed By: #### L 500.2500, L100.0500 ####[facility] [address] [place], [address] Creatinine [Mass/Vol] 1.01 mg/dL Normal 0.70-1.20 [facility] Comment on above: Performed By: #### L 500.2500, L100.0500 ####[facility] [address] [place], [address] ECRCL 68.29 ml/min Normal 50-250 [facility] Comment on above: Performed By: #### L 500.2500, L100.0500 ####[facility] [address] [place], [address] GAP 15 Normal 5-15 [facility] Comment on above: Performed By: #### L 500.2500, L100.0500 ####[facility] [address], [address] GFR/1.73 sq M.predicted among non-blacks MDRD (S/P/Bld) [Vol rate/Area] 77 mL/min/{1.73_m2} Normal >60 [facility] Comment on above: Result Comment: mL/m in/1.73m2 CKD-EPI Creatinine Equation (2020) Performed By: #### L 500.2500, L100.0500 ####[facility] [address] [place], [address] Glucose [Mass/Vol] 175 mg/dL High 70-99 [facility] Comment on above: Performed By: #### L 500.2500, L100.0500 ####[facility] [address] [place], [address] Potassium [Moles/Vol] 4.4 mmol/L Normal 3.3-5.1 [facility] Comment on above: Performed By: #### L 500.2500, L100.0500 ####[facility] [address] [place], [address] Sodium [Moles/Vol] 135 mmol/L Normal 133-145 [facility] Comment on above: Performed By: #### L 500.2500, L100.0500 ####[facility] [address] [place], [address] Urea nitrogen [Mass/Vol] 20 mg/dL High 4-19 [facility] Comment on above: Performed By: #### L 500.2500, L100.0500 ####[facility] [address] [place], [address] Bedside Glucoseon 12-24-2024 FINGERSTICK GLU 306 mg/dL High 74-106 [facility] Comment on above: Result Comment: SUSAN GEMENT OF PATIENT CARE PER NURSING PROTOCOL Performed By: #### L 501.080 #### [facility] [address] [place], [address] FINGERSTICK GLU 188 mg/dL High 74-106 [facility] Comment on above: Result Comment: SUSAN GEMENT OF PATIENT CARE PER NURSING PROTOCOL Performed By: #### L 501.080 #### [facility] [address] [place], [address] CBC-Complete Blood Cnt No Di ffon 12-24-2024 Erythrocyte distribution width (RBC) [Ratio] 13.4 % Normal 11.6-14.6 [facility] Comment on above: Performed By: #### L 500.2500, L100.0500 #### [facility] [address] [place], [address] Hematocrit (Bld) [Volume fraction] 39.7 % Low 40-54 [facility] Comment on above: Performed By: #### L 500.2500, L100.0500 #### [facility] [address] [place], [address] Hemoglobin (Bld) [Mass/Vol] 13.5 g/dL Normal 13.0-16.5 [facility] Comment on above: Performed By: #### L 500.2500, L100.0500 #### [facility] [address] [place], [address] MCH (RBC) [Entitic mass] 29.6 pg Normal 27.0-32.0 [facility] Comment on above: Performed By: #### L 500.2500, L100.0500 #### [facility] [address] [place], [address] MCHC (RBC) [Mass/Vol] 34.0 g/dL Normal 32-36 [facility] Comment on above: Performed By: #### L 500.2500, L100.0500 #### [facility] [address] [place], [address] MCV (RBC) [Entitic vol] 87.1 fL Normal 80-94 [facility] Comment on above: Performed By: #### L 500.2500, L100.0500 #### [facility] [address] [place], [address] Platelet mean volume (Bld) [Entitic vol] 11.7 fL Normal 6.2-12.0 [facility] Comment on above: Performed By: #### L 500.2500, L100.0500 #### [facility] [address] [place], [address] Platelets (Bld) [#/Vol] 174 10*3/uL Normal 150-450 [facility] Comment on above: Performed By: #### L 500.2500, L100.0500 #### [facility] [address] [place], [address] RBC (Bld) [#/Vol] 4.56 10*6/uL Low 4.6-6.2 [facility] Comment on above: Performed By: #### L 500.2500, L100.0500 #### [facility] [address] [place], [address] RDW SD 41.7 fl Normal 35.1-43.9 [facility] Comment on above: Performed By: #### L 500.2500, L100.0500 #### [facility] [address] [place], [address] WBC (Bld) [#/Vol] 10.6 10*3/uL Normal 4.4-11.0 [facility] Comment on above: Performed By: #### L 500.2500, L100.0500 #### [facility] [address] [place], [address] Carbon dioxide, total [Moles /volume] in Central venous bloodOrdered By: Major Yi on 12-24-2024 CO2 [Moles/Vol] 19.6 mmol/L Low 21.0-32.0 [facility] Chloride assayOrdered By: Yumiko Yi on 12-24-2024 Chloride [Moles/Vol] 100 mmol/L 98-108 [facility] Erythrocyte distribution wid th ratioOrdered By: Major Yi on 12-24-2024 Erythrocyte distribution width (RBC) [Ratio] 13.4 % 11.6-14.6 [facility] Erythrocyte distribution wid th standard deviationOrdered By: Major Yi on 12-24-2024 Erythrocyte distribution width (RBC) [Ratio] 41.7 fl 35.1-43.9 [facility] Glomerular filtration rate ( GFR) estimation/1.73 sq m using serum, plasma, or whole bOrdered By: Major Yi on 12-24-2024 GFR/1.73 sq M.predicted among non-blacks MDRD (S/P/Bld) [Vol rate/Area] 77 mL/min/{1.73_m2} >60 [facility] Comment on above: mL/min/1.73m2 CKD-EP I Creatinine Equation (2020) [facility] deOrdered By: Major Yi on 12-24-2024 Glucose [Mass/Vol] 306 mg/dL High 74-106 [facility] Comment on above: MANAGEMENT OF PATIEN T CARE PER NURSING PROTOCOL Hematocrit Auto (Bld) [Volum e fraction]Ordered By: Major Yi on 12-24-2024 Hematocrit (Bld) [Volume fraction] 39.7 % Low 40-54 [facility] Hemoglobin measurementOrdere d By: Major Yi on 12-24-2024 Hemoglobin (Bld) [Mass/Vol] 13.5 g/dL 13.0-16.5 [facility] MCV (mean corpuscular volume ) determinationOrdered By: Major Yi on 12-24-2024 MCV (RBC) [Entitic vol] 87.1 fL 80-94 [facility] Mean corpuscular hemoglobin (MCH) determinationOrdered By: Major Yi on 12-24-2024 MCH (RBC) [Entitic mass] 29.6 pg 27.0-32.0 [facility] Mean corpuscular hemoglobin concentration (MCHC) determinationOrdered By: Major Yi on 12-24-2024 MCHC (RBC) [Mass/Vol] 34.0 g/dL 32-36 [facility] Mean platelet volume determi nationOrdered By: Major Yi on 12-24-2024 Platelet mean volume (Bld) [Entitic vol] 11.7 fL 6.2-12.0 [facility] Platelet countOrdered By: Yumiko Yi on 12-24-2024 Platelets (Bld) [#/Vol] 174 10*3/uL 150-450 [facility] Potassium measurement (mass/ volume)Ordered By: Major Yi on 12-24-2024 Potassium (Unsp spec) [Mass/Vol] 4.4 mmol/L 3.3-5.1 [facility] RBC Auto (Bld) [#/Vol]Ordere d By: Major Yi on 12-24-2024 RBC (Bld) [#/Vol] 4.56 10*6/uL Low 4.6-6.2 [facility] Serum creatinine measurement (mass/volume)Ordered By: Major Yi on 12-24-2024 Creatinine [Mass/Vol] 1.01 mg/dL 0.70-1.20 [facility] Serum glucose measurement (m ass/volume)Ordered By: Major Yi on 12-24-2024 Glucose [Mass/Vol] 175 mg/dL High 70-99 [facility] Serum or plasma calcium collin urement (mass/volume)Ordered By: Major Yi on 12-24-2024 Calcium [Mass/Vol] 9.2 mg/dL 7.6-11.0 [facility] Serum or plasma urea nitroge n measurement (mass/volume)Ordered By: Major Yi on 12-24-2024 Urea nitrogen [Mass/Vol] 20 mg/dL High 4-19 [facility] Sodium levelOrdered By: Moshe Yi on 12-24-2024 Sodium [Moles/Vol] 135 mmol/L 133-145 [facility] White blood cell (WBC) count Ordered By: Major Yi on 12-24-2024 WBC (Bld) [#/Vol] 10.6 10*3/uL 4.4-11.0 [facility] Bedside Glucoseon 12-23-2024 FINGERSTICK GLU 272 mg/dL High 74-106 [facility] Comment on above: Result Comment: SUSAN GEMENT OF PATIENT CARE PER NURSING PROTOCOL Performed By: #### L 501.080 ####[facility] [address] [facility] [place], [address] FINGERSTICK GLU 166 mg/dL High 74-106 [facility] Comment on above: Result Comment: SUSAN GEMENT OF PATIENT CARE PER NURSING PROTOCOL Performed By: #### L 501.080 ####[facility] [address] [place], [address] FINGERSTICK GLU 195 mg/dL High [facility]106 [facility] Comment on above: Result Comment: SUSAN GEMENT OF PATIENT CARE PER NURSING PROTOCOL Performed By: #### L 501.080 #### [facility] [address] [place], [address] Consultation - Hospitaliston 12-23-2024 Consultation - Hospitalist [facility] Medical Records Department [address] [place] [address] Consultation - Hospitalist 12/23/24 1608 MR#: [id number] Acct: [id number] Name: MARIA E GUTHRIE Rep #: [id number] : 1950 74 From: Hansel Sultana DO PCP: Dr. Matt Saul MD Status:ADM BAR Location: [place] [address] Assessment Plan Assessment/Plan (1) Right rotator cuff tear arthropathy: PLAN: Plan Patient is a 74-year-old male who presented to [facility] on 12/23/2024 for planned right shoulder [...] is a 74 M who presented to [facility] on 12/23/2024 for planned orthopedic procedure. [...] No other acute concerns at this time. [facility] Medical History Wears hearing aid Wears glasses Wears partial dentures History of steroid therapy Arthritis Dietary restriction Non-smoker History of echocardiogram History of stress test Cardiology follow-up encounter Diabetes Myocardial infarct Hypertension Osteoarthritis Gout Atherosclerosis of coronary artery of [place] heart without angina pectoris Hyperlipidemia Home Medications [...] Type Severity Reaction Status Date / Time Kdbncyd-RMS-XqK Reductase AdvReac Mild myalgias Verified 12/23/24 10:26 Inhibitor (Dkdkgbb-Aae-Ykl Reductase Inhibitor) Family History Brother CAD (coronary [...] nourished (more content not included)... [facility] MR/POSTOP.ANEon 12-23-2024 MR/POSTOP.[facility] Medical Records Department [address] [place] [address] Anesthesia Postop Eval I 12/23/24 1332 MR#: [id number] Acct: [id number] Name: MARIA E GUTHRIE Rep #: [id number] : 1950 74 From: Priscilla Willard CRNA PCP: Dr. Matt Saul MD Status:REG [facility] Y Race: C Location: [place] [address] Anesthesia: Postop Eval I Current Vital Signs Temperature: 97 F Pulse Rate: 89 Blood Pressure: 145/87 Respiratory Rate: 18 Pulse Ox: 93 Assessment Airway patent: Yes Spontaneous unlabored respirations: Yes nausea: No Vomiting: No Anesthesia Complication: No Fluid Hydration Crystalloid volume administer (ml): 1,300 Total IV fluid infused: 1,300 Progress Note Anesthesia document: Postop Eval 1 completed: Yes 12/23/241332 Date Priscilla Willard AGENCY MANAGER Cosigner Signature: Date CC: Signed [facility] MR/[id number] 12-23-2024 MR/POSTOPAN2 [facility] Medical Records Department [address] [facility] [place] [address] Anesthesia Postop Eval II 12/23/24 1433 MR#: [id number] Acct: [id number] Name: MARIA E GUTHRIE Rep #: [id number] : 1950 74 From: Osei Lubin MD PCP: Dr. Matt Saul MD Status:ADM BAR Y Race: C [id number] Postop Eval I Sum Postop Eval Completion status Anesthesia document: Postop Eval 1 completed: Yes Anesthesia Postop Eval I Summary Anesthesia Postop Eval I Summary: Anesthesia Postop Eval I: Assessment Summary Airway patent Yes 12/23/24 13:32 AGENCY MANAGER.CSIR Spontaneous unlabored Yes 12/23/24 13:32 AGENCY MANAGER.CSIR respirations Mental status nausea No 12/23/24 13:32 AGENCY MANAGER.CSIR Vomiting No 12/23/24 13:32 AGENCY MANAGER.CSIR Anesthesia Postop Eval I: Fluid Summary Crystalloid volume administer 1,300 12/23/24 13:32 AGENCY MANAGER.CSIR (ml) Colloids volume administered ( ml) Blood Product volume administered (ml) Total IV fluid infused 1,300 12/23/24 13:32 AGENCY MANAGER.CSIR Anesthesia Postop Eval I: Summary Notes Anesthesia Complication No 12/23/24 13:32 AGENCY MANAGER.CSIR Anesthesia Complication Comment: Post-operative progress note Anesthesia: Postop Eval II Evaluation Mental status: Awake and Calm Pain Level: 1 nausea: No Vomiting: No Complications Anesthesia Complication: No 12/23/24 1433 Date Osei Lubin MD Cosigner Signature: Date CC: Signed Normal [facility] Magnesiumon 12-23-2024 Magnesium [Mass/Vol] 1.8 mg/dL Normal 1.5-2.2 [facility] Comment on above: Performed By: #### L 501.5200 #### [facility] Laboratory [facility] [place], [address] Magnesium measurement (mass/ volume)Ordered By: Faheem Barroso on 12-23-2024 Magnesium (Unsp spec) [Mass/Vol] 1.8 mg/dL 1.5-2.2 [facility] Operative Reporton Operative Report [facility] Medical Records Department [address] [place] [address] Operative Report 12/23/24 1322 MR#: [id number] Acct: [id number] Name: MARIA E GUTHRIE Rep #: [id number] : 1950 74 From: Major Yi DO PCP: Dr. Matt Saul MD Status:[facility] Location: [place] [address] Operative Report (Standard) Operative Information Date of Procedure: 12/23/24 Pre-Operative Diagnosis: Right shoulder rotator cuff tear arthropathy Post-Operative Diagnosis: Right shoulder rotator cuff tear arthropathy Surgery/Procedure Performed: Right reverse total shoulder arthroplasty leather finisher: Yes Briar Cutter: Oneyda Solano Tasks completed by elementary assistant teacher: Opening closing, Implanting device, Hemostasis: Electrocautery and [...] No Description of surgery: Patient arrived to [facility] morning of the procedure and was [...] positioned in the beachchair position. A well-padded headstart teacher was applied. The nonoperative extremity was placed [...] cartilaginous carla (more content not included)... Normal [facility] Shoulder min 2 Viewson 12-23 Shoulder min 2 Views [facility] Imaging Services [address] [place] [address] Shoulder min 2 Views MR#: [id number] Acct: [id number] Name: MARIA E GUTHRIE Rep #: [id number] : 1950 M 74 From: Seven Suárez MD PCP: Dr. Matt Saul MD Status: [facility] Study: Shoulder min 2 Views Date of Exam: 12/23/24 Exam# [id number] Ordering Dr: Major Yi DO PROCEDURE: SHOULDER [...] IMPRESSION: Right shoulder reverse arthroplasty. Reading Location: [place] [address] CC: Dr. Matt Saul MD; Dr. Major Yi DO Churn Driller: Signed [facility] MR/PAT.ANEon 12-04-2024 MR/PAT.ANE [facility] Medical Records Department [address] [facility] [place] [address] PAT - Anesthesia 12/04/241946 MR#: [id number] Acct: [id number] Name: MARIA E GUTHRIE Rep #: [id number] : 1950 74 From: Faheem Barroso MD PCP: Dr. Matt Saul MD Status:PRE [facility] Y Race: C Location: [facility] Pre-Assessment Diagnosis/Proposed Procedure Planned Operative Procedure(s): RIGHT REVERSE TOTAL SHOULDER ARTHROPLASTY Anesthesia History Anesthesia History - respiratory care technician: Anesthesia History - respiratory care technician Hx Hospitalization No 12/03/24 10:59 Any Problems [...] take am of surgery PONV PONV - respiratory care technician: PONV - respiratory care technician Female No 12/03/24 10:59 HX of Motion Sickness No 12/03/24 10:59 HX of N/V After Surgery No 12/03/24 10:59 Non-Smoker Yes 12/03/24 10:59 Duration of Surgery greater Yes 12/03/24 10:59 than 60 minutes Number of Risk Factors 2 12/03/24 10:59 PONV Score Moderate Risk 12/03/24 10:59 Height Weight Height Weight: Anesthesia: Height Weight Height 6 ft 04/04/24 14:18 Respiratory Assessment Respiratory Assessment - respiratory care technician: Respiratory Tract Infection Hx - respiratory care technician Hx Respiratory Tract Infection No 12/03/24 10:59 STOP Sleep Apnea STOP Sleep Apnea - respiratory care technician: STOP Sleep Apnea - respiratory care technician Hx Hypertension Yes: CONTROLLED WITH MED 12/03/24 [...] Tobacco Use History Tobacco Use History - respiratory care technician: Tobacco Use History - respiratory care technician Tobacco Use Smoking Status Never smoker 12/03/24 10:59 Hx Tobacco Use No 12/03/24 10:59 Years Smoking Packs Smoked per Day Smoking Cessation Date was within the last 15 years Hx Smoking Cessation Date Hx Smoking Cessation Counseling Hematologic Medial History Hematologic Hx - respiratory care technician: 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 Normal [facility] 12 Lead EKGon 11-27-2024 12 Lead EKG [facility] Cardiovascular Services [address] [place] [address] 12 Lead EKG 11/27/24 0654 MR#: [id number] Acct: [id number] Name: MARIA E GUTHRIE W Rep #: [id number] : 1950 74 From: Seven Grey MD Attending Dr: Dr. Major Yi DO Status: PRE [facility] Ordering Dr: Major Yi DO Date: 11/27/24 Location: [facility] Sex: M C Admitted: Test Reason : [...] Borderline ECG Confirmed by Seven Grey ([id number]), design editor KARINA GIVENS ([id number]) on 11/27/2024 9:43:00 AM Referred By: Major Yi Confirmed By: Seven Grey 11/27/24 0943 Date Seven Grey MD CC: Dr. Matt Saul MD; Dr. Major Yi DO Signed Normal [facility] Electrocardiogram reportOrde red By: Seven Grey on 11-27-2024 EKG study [facility] Cardiovascular Services [address] [place] [address] 12 Lead EKG 11/27/24 0654 MR#: [id number] Acct: [id number] Name: MARIA E GUTHRIE Rep #:[id number] : 1950 74 From: Seven alcantara MD Attending Dr: Dr. Major Yi DO Status: PRE [facility] Ordering Dr: Major Yi DO Date: 11/27/24 Location: [facility] Sex: M C Admitted: Test Reason : [...] block Borderline ECG Confirmed by Seven Grey ([id number]), design editor KARINA GIVENS ([id number]) on 59:43:00 AM Referred By: Major Yi Confirmed By: Seven Grey 11/27/24 0943 Date _ Seven Grey MD CC: Dr. Matt Saul MD; Dr. Major Yi DO ~ Signed [facility] Work Phone: Extremity Upper without Cont raon 11-26-2024 Extremity Upper without Contra [facility] Imaging Services [address] [place] [id number] Extremity Upper without Contra MR#: [id number] Acct: [id number] Name: MARIA E GUTHRIE Rep #: [id number] : 1950 M 74 From: Gonzalez Garcia MD PCP: Dr. Matt Saul MD Status: REG CLI Study: Extremity Upper without Contra Date of Exam: 0 11/26/24 Exam# [id number] Ordering Dr: Major Yi DO PROCEDURE: EXTREMITY [...] Matt Saul MD; Dr. Major Yi DO Churn Driller: Signed Normal [facility] Urgent Care Visit Reporton 0 07-09-2024 Urgent Care Visit Report [facility] [address], [address] [place] [address] OFFICE VISIT Date of Service: 07/09/24 MR#: [id number] Acct: [id number] Name: MARIA E GUTHRIE Rep #: [id number] : 1950 Provider: EDILSON Salinas Age/Sex: 74/M Location: [facility] Status: Signed Intake Vital Signs 04/04/24 14:18 [...] Reasons: RASH ON BACK Chief Complaint: rash Environmental Planning Engineer Required: No Is patient in pain?: Yes Allergies Ifwdssa-ZHM-GnF Reductase Inhibitor (Rbngmoe-Brj-Rcp Reductase Inhibitor) Adverse Reaction (Mild, Verified 07/09/24 17:33) myalgias Have you fallen in the past year?: No Nurse's Note: rash to left upper buttock/low back x 3-4 days with burning. 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 No wmgz-eiq-joxqqjw products taken to assist. No other associated symptoms and no other alleviating/aggravatin g factors. ROS Const Constitutional: No other (As above) Exam Const General: cooperative, healthy appearing and no acute distress Nutritional Appearance: average body habitus Orientation: alert and awake HENNM Head: normal to inspection Ears: hearing grossly [...] Rodríguez Signature: Date (if applicable) CC: Normal [facility] Ankle min 3 Viewson 06-19-19 25 Ankle min 3 Views [facility] Imaging Services [address] [place] [id number] Ankle min 3 Views MR#: [id number] Acct: [id number] Name: MARIA E GUTHRIE Rep #: [id number] : 1950 M 74 From: Tenzin Joshua MD PCP: Dr. Matt Saul MD Status: REG CLI Study: Ankle min 3 Views Date of Exam: 06/18/24 Exam# [id number] Ordering Dr: Matt Saul EXAM: XR Right [...] evaluation with CT is recommended. Reading [facility] CC: Dr. Matt Saul MD Churn Driller: Signed Normal [facility] Foot min 3 Viewson Foot min 3 Views [facility] Imaging Services [address] [place], [place] [id number] Foot min 3 Views MR#: [id number] Acct: [id number] Name: MARIA E GUTHRIE Rep #: [id number] : 1950 M 74 From: Pako de leon MD PCP: Dr. Matt Saul MD Status: REG CLI Study: Foot min 3 Views Date of Exam: 06/18/24 Exam# [id number] Ordering Dr: Matt Saul PROCEDURE: FOOT MIN [...] suggestive of gout. Calcaneal spurs. Reading Location: [id number] CC: Dr. Matt Saul MD Churn Driller: Signed Normal [facility] Cardiology Visit Reporton Cardiology Visit Report [facility] [address] [place], [place] [address] OFFICE VISIT Date of Service: 04/04/24 MR#: [id number] Acct: [id number] Name: MARIA E GUTHRIE Rep #: [id number] : 1950 Provider: Dr. Nathan Purcell MD Age/Sex: 73/M Location: [facility] Status: Signed HPI HPI History of [...] has been put on Praluent by the [facility]. From a cardiac standpoint, the patient is [...] Monitor Intake Visit Reasons: 1 Y FU Environmental Planning Engineer Required: No Accompanied by: Self Is patient in pain?: No Allergies Thbqlgv-NLY-GkK Reductase Inhibitor (Bhtifpa-Xhh-Rvk Reductase Inhibitor) Adverse Reaction (Mild, Verified 04/04/24 [...] Osteoarthritis Gout Atherosclerosis of coronary artery of [place] heart without angina pectoris PTSD (post-traumatic stress [...] no acu (more content not included)... Normal [facility] CNOVon 02-26-2024 CN Office Visit (GENSWS ) MARIA E GUTHRIE ([id number]) 1950 Date Time Provider Department 02/26/24 1:00 PM MADDIE BERNSTEIN GENS During your visit today, we recorded the following information about you: Maddie Bernstein APRN.CNP 02/26/2024 1:03 PM Signed FOLLOW UP VISIT - ENDOSCOPY Maria E John Maksim 1950 [id number] REFERRING PHYSICIAN: Matt Saul ([facility]) [address] [place] [id number] Maria E Guthrie is a patient I [...] Maddie Bernstein APRN.BALJIT Referring Provider: MATT SAUL [[id number]] Allergies As of Date: 02/26/2024 Noted Allergy Reaction ZOCOR (SIMVASTATIN) 08/15/2006 5 - Intolerance Comments: myalgias Date Reviewed: 02/26/2024 Reviewed by: Maddie Bernstein APRN.OUTSIDE SALESMAN - Fully Assessed Reason for Visit: Follow Up [171] Cmt: Review colonoscopy results. Primary Visit Diagnosis:History of colonic polyps [Z86.0100] Prescriptions as of 02/26/2024 - alirocumab (PRALUENT) 150 mg/mL pen Inject 150 mg subcutaneously. - losartan (COZAAR) 100 mg tablet Take 100 mg by mouth. - fluticasone (FLONASE) 50 mcg/actuation nasal spray Use 1 Mousie in the nose once daily. - cyanocobalamin [...] Status:Closed by MADDIE BERNSTEIN on 02/26/24 Normal [facility] [id number] 02-19-2024 [id number] HNO ID: [id number] Author: ESTELLE BIRD RN Service: ? Author Type: Registered Nurse Type: [id number] Filed: 02/19/2024 12:17 Note Text: The patient received a copy of Colonoscopy discharge instructions that contain information for how to contact the physician who performed the procedure and when to seek medical care. Normal [facility] Colonoscopyon 02-19-2024 Colonoscopy [facility] Patient Name: Maria E Guthrie [...] previous diet. Procedure Code(s): --- Professional --- 48992, Colonoscopy, flexible; with biopsy, single or multiple G0500, Moderate sedation services provided by the same physician or other qualified health district manager primary care sales performing a gastrointestinal endoscopic service that sedation supports, requiring the presence of an independent trained observer to assist in the monitoring of the patient's level of consciousness and physiological status; initial 15 minutes of intra-service time; patient age 5 years or older (additional time may be reported with 83337, as appropriate) Diagnosis Code(s): --- Professional --- Z12.11, Encounter for screening for malignant neoplasm of colon Z86.010, Personal history of colonic polyps K64.8, Other hemorrhoids D12.5, Benign neoplasm of sigmoid colon CPT copyright 2020 [employer]. All rights reserved. The codes documented in this report are preliminary and upon continuous dryout operator review may be revised to meet current compliance requirements. Attending Participation: I personally performed the entire procedure. Scope In: 11:39:45 AM Scope Out: 11:54:37 AM MD Demetri Sainz MD 02/19/2024 12:01:02 PM This report has been signed electronically by Demetri Lord MD Number of Addenda: 0 Note Initiated On: 02/19/2024 11:28 AM Estimated Blood Loss: Estimated blood loss was minimal. Normal [facility] Colonoscopy Study observatio non 02-19-2024 [facility] Gastrointestinal Endoscopy Patient Name: Maria E Guthrie [...] previous diet. Procedure Code(s): --- Professional --- 21528, Colonoscopy, flexible; with biopsy, single or multiple G0500, Moderate sedation services provided by the same physician or other qualified health district manager primary care sales performing a gastrointestinal endoscopic service that sedation sup (more content not included)... [facility] Radiology Study observation (narrative) [facility] HISTORY PHYSICALon HISTORY PHYSICAL HNO ID: [id number] Author: DEMETRI LORD MD Service: General Surgery [...] Last colonoscopy 06/[address] Park at [facility]. Sedation:Midazolam 5 mg IV, Fentanyl 100 [...] (FLONASE) 50 mcg/actuation nasal spray Use 1 Mousie in the nose once daily. cyanocobalamin (VITAMIN [...] entered by the nurse and reviewed by pr Nursing Notes: Francisca Spann RN 02/16/2024 2:03 [...] The pa (more content not included)... Normal [facility] SURGICAL PATHOLOGYon 024 CASE REPORT Normal [facility] Comment on above: Order Comment: Speci men Type: TISSUE SPECIMEN Ordering Facility: [facility] Address: [address] [place] [address] Result Comment: Surg ical Pathology Report Case: [id number] Authorizing Provider: Demetri Lord MD Collected: 02/19/2024 11:51 AM Ordering Location: Ambulatory Surgery Received: 02/19/2024 12:46 PM Pathologist: Tracie Hwang MD Specimen: Colon, Sigmoid, Polyp Performed By: #### S #### [facility] CLIA [id number] [address] [place] [address] [place] FINAL DIAGNOSIS Normal [facility] Comment on above: Order Comment: Speci men Type: TISSUE SPECIMEN Ordering Facility: [facility] Address: [address] [place] [address] Result Comment: A. C olon, sigmoid, polyp, polypectomy -Tubular adenoma Performed By: #### S #### [facility] CLIA [id number] [address] [place] [address] [place] FINAL PERFORMING LAB Normal [facility] Comment on above: Order Comment: Speci men Type: TISSUE SPECIMEN Ordering Facility: [facility] Address: [address] [place] [address] Result Comment: Diag nostic interpretation performed at [facility], [address] [place] [address] CLIA# [id number] Log Marker: Karel Singer M.D. Performed By: #### S #### [facility] CLIA [id number] [address] [place] [address] [place] GROSS DESCRIPTION Normal [facility] Comment on above: Order Comment: Speci men Type: TISSUE SPECIMEN Ordering Facility: [facility] Address: [address] [place] [address] Result Comment: A. Luna olon, Sigmoid, Polyp Received in formalin is one piece of simon, soft tissue measuring 0.4 x 0.3 x 0.2 cm. Totally submitted in one cassette. KDK February 19, 2024 7:33 PM Gross examination performed at [facility], [address] [place] [address] Performed By: #### S #### [facility] CLIA [id number] [address] [place] [address] [id number] CNOVon 02-16-2024 CNOV Office Visit (GENSWS ) MARIA E GUTHRIE ([id number]) 1950 Date Time Provider Department 02/16/24 2:00 [...] Last colonoscopy 06/[address] Park at [facility]. Sedation:Midazolam 5 mg IV, Fentanyl 100 [...] (FLONASE) 50 mcg/actuation nasal spray Use 1 Mousie in the nose once daily. cyanocobalamin (VITAMIN [...] entered by the nurse and reviewed by pr Nursing Notes: Francisca Spann RN 02/16/2024 2:03 [...] stent. Respir (more content not included)... Normal [facility] Giovanni [facility]20[facility] MARIA E GUTHRIE ([id number]) 1950 M Date Time Provider Department 02/16/24 MOLLY BERNSTEIN During your visit today, we recorded the following information about you: Melanie Marcelino 02/16/2024 2:37 PM Signed 02-19-2024 Colonoscopy concepción EFREN Cook prep, nurse went over instructions yudy has direct number to contact for any questions or concerns., Instructed patient to arrive at 1045 in [facility] Allergies As of Date: 02/16/2024 Noted Allergy Reaction ZOCOR (SIMVASTATIN) 08/15/2006 5 - Intolerance Comments: myalgias Date Reviewed: 02/16/2024 Reviewed by: Maddie Bernstein APRN.OUTSIDE SALESMAN - Fully Assessed Reason for Visit: 02-19-2024 Colonscoopy [Other] Prescriptions as of 03/18/2024 - alirocumab (PRALUENT) 150 mg/mL pen Inject 150 mg subcutaneously. - losartan (COZAAR) 100 mg tablet Take 100 mg by mouth. - fluticasone (FLONASE) 50 mcg/actuation nasal spray Use 1 Mousie in the nose once daily. - cyanocobalamin [...] Encounter Status:Closed by MELANIE MARCELINO on 03/18/24 [facility] No Panel InformationOrdered By: Joe Joshua on 08-18-2023 Troponin I High Sensitivity 9 pg/mL 3.0-78.0 [facility] Comment on above: Please Note: New Nighat t Units and Gender Specific Reference Ranges. For more information see Policy Stat Procedure Byron High Sensitivity Troponin (TNIH) and attachments. Absolute lymphocyte countOrd ered By: Joe Joshua on 08-17-2023 Lymphocytes Auto (Unsp spec) [#/Vol] 2.02 10*3/uL 0.83-4.51 [facility] Automated lymphocyte count a s percentage of total leukocytesOrdered By: Joe Joshua on 08-17-2023 Lymphocytes/100 WBC Auto (Unsp spec) 49.8 % 19-41 [facility] Basophil percentageOrdered B y: Joe Joshua on 08-17-2023 Basophils/100 WBC (Bld) 0.5 % 0-1 [facility] Chloride [Moles/Vol] 101 mmol/L 98-107 [facility] Eosinophils/100 WBC (Bld) 0.7 % 0-5 [facility] Glucose [Mass/Vol] 195 mg/dL 74-106 [facility] Comment on above: Fasting Glucose resu lt greater than or equal to 126 mg/dL suggests DIABETES MELLITUS per A.D.A. criteria. Hemoglobin (Bld) [Mass/Vol] 15.4 g/dL 13.0-16.5 [facility] Monocytes/100 WBC (Bld) 10.1 % 0-10 [facility] Neutrophils (Bld) [#/Vol] 1.6 10*3/uL 2.0-7.7 [facility] Neutrophils/100 WBC (Bld) 38.9 % 47-70 [facility] Potassium [Moles/Vol] 3.1 mmol/L 3.5-5.1 [facility] Sodium [Moles/Vol] 135 mmol/L 136-145 [facility] WBC (Bld) [#/Vol] 4.1 10*3/uL 4.4-11.0 [facility] Determination of erythrocyte mean corpuscular volume (MCV)Ordered By: Joe Joshua on 08-17-2023 MCV (RBC) [Entitic vol] 87.0 fL 80-94 [facility] Erythrocyte distribution wid th ratioOrdered By: Joe Joshua on 08-17-2023 Erythrocyte distribution width (RBC) [Ratio] 13.0 % 11.6-14.6 [facility] Erythrocyte distribution wid th standard deviationOrdered By: Joe Joshua on 08-17-2023 Erythrocyte distribution width (RBC) [Entitic vol] 40.8 fL 35.1-43.9 [facility] Hematocrit Auto (Bld) [Volum e fraction]Ordered By: Joe Joshua on 08-17-2023 Hematocrit (Bld) [Volume fraction] 45.4 % 40-54 [facility] Immature granulocytes/100 WB C Auto (Bld)Ordered By: Joe Joshua on 08-17-2023 Immature granulocytes/100 WBC (Bld) 0.000 % 0.0-0.9 [facility] Comment on above: IG% - Immature Granu locytes (promyelocytes, myelocytes and metamyelocytes) > 1% indicates that a LEFT SHIFT is Present. Laboratory - Chemistry and C hemistry - challengeOrdered By: Joe Joshua on 08-17-2023 CO2 [Moles/Vol] 29.0 mmol/L 21.0-32.0 [facility] Urea nitrogen/Creatinine [Mass ratio] 18.5 mg/mg 10-20 [facility] Laboratory - Hematology and Cell countsOrdered By: Joe Joshua on 08-17-2023 MCH (RBC) [Entitic mass] 29.5 pg 27.0-32.0 [facility] MCHC (RBC) [Mass/Vol] 33.9 g/dL 32-36 [facility] Nucleated RBC/100 WBC (Bld) [Ratio] 0 % 0-5 [facility] Platelet mean volume (Bld) [Entitic vol] 10.7 fL 6.2-12.0 [facility] Platelets (Bld) [#/Vol] 147 10*3/uL 150-450 [facility] No Panel InformationOrdered By: Joe Joshua on 08-17-2023 D-Dimer Quantitative (PE/DVT) 0.44 FEU/ug/m 0.27-0.49 [facility] Comment on above: NORMAL D-Dimer level (<0.50) indicates no DVT or PE. Estimated Creatinine Clearance Calc 72.22 ml/min [facility] Estimated GFR (MDRD) Amer 97 mL/min >60 [facility] Comment on above: GFR Calc Estimated GFR (MDRD) Non-Af Amer 80 mL/min >60 [facility] Comment on above: Non- GFR Calc RBC Auto (Bld) [#/Vol]Ordere d By: Joe Joshua on 08-17-2023 RBC (Bld) [#/Vol] 5.22 10*6/uL 4.6-6.2 [facility] Serum or plasma calcium collin urement (mass/volume)Ordered By: Joe Joshua on 08-17-2023 Calcium [Mass/Vol] 9.4 mg/dL 8.5-10.1 [facility] Serum or plasma creatinine m easurement (mass/volume)Ordered By: Joe Joshua on 08-17-2023 Creatinine [Mass/Vol] 0.97 mg/dL 0.70-1.30 [facility] Comment on above: The validity of the calculated GFR & GFRAA in patients over 70 years has not been determined. Clinical correlation is essential. Serum or plasma urea nitroge n measurement (mass/volume)Ordered By: Joe Joshua on 08-17-2023 Urea nitrogen [Mass/Vol] 18 mg/dL 7-18 [facility] Thin prep Papanicolaou smear with manual screeningOrdered By: Joe Joshua on 08-17-2023 Thin prep Papanicolaou smear with manual screening 5 5-15 [facility] No Panel Informationon 05-17 Influenza Types A,B Rapid (Clinic) Pos FLU A &Neg FLU B [facility] Office Visiton 11-08-2016 Fall risk assessment No [facility] Work Phone: [phone] Protein mass conc Done [facility] Work Phone: [phone] Chart Maintenanceon 11-07-19 17 Left ventricular Ejection fraction 75 % [facility] Work Phone: Office Visiton 03-29-2016 Dietary management education, guidance, and counseling (procedure) yes Invalid Interpretation Code [facility] Work Phone: [phone] Documentation of current medications (procedure) Done Invalid Interpretation Code [facility] Work Phone: [phone] Tobacco smoking status NHIS Never smoker [facility] [email or web address] Work Phone: [phone] Tobacco use CPHS Never smoker Invalid Interpretation Code [facility] Work Phone: [phone] Clinical Lists Update: 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 12-22-2015 Alanine aminotransferase (ALT) 45 U/L [facility] Work Phone: [phone] Albumin 4.1 g/dL [facility] Work Phone: [phone] Alkaline phosphatase (ALP) 51 U/L Invalid Interpretation Code [facility] Work Phone: [phone] ALP enzyme act/vol (Bld) 51 U/L [facility] Work Phone: [phone] Anion gap 16 mmol/L Invalid Interpretation Code [facility] Work Phone: [phone] Anion gap molar conc 16 mmol/L [facility] Work Phone: [phone] Aspartate aminotransferase (AST) 40 U/L [facility] Work Phone: [phone] Bilirubin (total) 0.5 mg/dL [facility] Work Phone: [phone] Calcium 8.9 mg/dL [facility] Work Phone: [phone] Chloride 109 mmol/L High [facility] Work Phone: [phone] Cholesterol 202 mg/dL High [facility] Work Phone: [phone] CO2 19 mmol/L Low [facility] Work Phone: [phone] CO2 ppres (BldV) 19 mmol/L Low [facility] Work Phone: [phone] Creatinine 1.0 mg/dL [facility] Work Phone: [phone] Erythrocyte distribution width Ratio (RBC) 13.6 % [facility] Work Phone: [phone] Erythrocytes (RBC) 5.69 10*6/uL Invalid Interpretation Code [facility] Work Phone: [phone] Glucose 117 mg/dL Invalid Interpretation Code [facility] Work Phone: [phone] Glucose mass conc 117 mg/dL [facility] Work Phone: [phone] HbA1c 6.5 % High [facility] Work Phone: [phone] HDL Cholesterol 45 mg/dL [facility] Work Phone: [phone] Hematocrit (HCT) 49.1 % Invalid Interpretation Code [facility] Work Phone: [phone] Hematocrit Volume Fraction (Bld) 49.1 % [facility] Work Phone: [phone] Hemoglobin (HGB) 16.6 g/dL [facility] Work Phone: [phone] LDL Cholesterol 130 mg/dL High [facility] Work Phone: [phone] Magnesium 2.3 mg/dL [facility] Work Phone: [phone] MCH 29.2 pg Invalid Interpretation Code [facility] Work Phone: [phone] MCH Entitic mass (RBC) 29.2 pg [facility] Work Phone: [phone] MCHC 33.8 g/dL Invalid Interpretation Code [facility] Work Phone: [phone] MCHC mass conc (RBC) 33.8 g/dL [facility] Work Phone: [phone] MCV 86.3 fL Invalid Interpretation Code [facility] Work Phone: [phone] MCV Entitic volume (RBC) 86.3 fL [facility] Work Phone: [phone] Platelets 245 10*3/mm3 Invalid Interpretation Code [facility] Work Phone: [phone] Platelets #/vol (Bld) 245 10*3/mm3 [facility] Work Phone: [phone] Potassium 3.9 mmol/L [facility] Work Phone: [phone] Protein 7.3 g/dL [facility] Work Phone: [phone] RBC #/vol (Bld) 5.69 10*6/uL [facility] Work Phone: [phone] RDW-CA 13.6 % Invalid Interpretation Code [facility] Work Phone: [phone] Sodium 140 mmol/L [facility] Work Phone: [phone] Thyroid stimulating hormone (TSH) 1.23 u[iU]/mL [facility] Work Phone: [phone] Thyroxine (T4) free 1.05 ng/dL [facility] Work Phone: [phone] Triglyceride 272 mg/dL High [facility] Work Phone: [phone] Urea nitrogen 19 mg/dL [email or web address] Work Phone: [phone] WBC #/vol (Bld) 4.84 10*3/uL [facility] Work Phone: [phone] WBC (Leukocytes) 4.84 10*3/uL Invalid Interpretation Code [facility] Work Phone: [phone] Lab Report: Lipid Profileon 04-08-2015 very low density lipoproteins 35 mg/dL 5-40 [facility] Work Phone: [phone] Lab Report: Liver Profileon 04-08-2015 Bilirubin (direct) 0.12 mg/dL 0.00-0.30 [facility] Work Phone: [phone] Globulin 3.2 g/dL Invalid Interpretation Code 2.3-3.5 [facility] Work Phone: [phone] Globulin mass conc (S) 3.2 g/dL 2.3-3.5 [facility] Work Phone: [phone] Clinical Lists Update: 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 04-02-2014 Globulin 3.0 g/dL Invalid Interpretation Code [facility] Work Phone: [phone] Globulin mass conc (S) 3.0 g/dL [facility] Work Phone: [phone] External Other: Preferred Me thod of Contacton 04-02-2014 methcontact secmsg [facility] Work Phone: [phone] Patient's prefered method of contact secmsg Invalid Interpretation Code [facility] Work Phone: [phone] Lab Report: Liver Profileon 04-02-2014 ALK P 49 U/L Critically low 50-136 [facility] Work Phone: [phone] GE use only - for [employer] import when terms are not otherwise specified 49 U/L Critically low 50-136 [facility] Work Phone: [phone] Office Visiton 03-31-2014 cardiac risk group C [facility] Work Phone: [phone] General cardiovascular disease 10Y risk [#] [place] [facility] [employer] Work Phone: Vital Signs Date Time Vital Sign Value Performing Clinician Alexa bedoya 12-24-2024 08:33-0400 Heart rate 58 /min Dr. Matt Saul MD Work Phone: [facility] 12-24-2024 08:26-0400 Body temperature 97.6 [degF] Dr. Matt Saul MD Work Phone: [facility] 12-24-2024 08:26-0400 Diastolic blood pressure 71 mm[Hg] Dr. Matt Saul MD Work Phone: 0(497)501-289231 [place] [address] 12-24-2024 08:26-0400 Respiratory rate 18 /min Dr. Matt Saul MD Work Phone: 5(504)281-214539 [address] 12-24-2024 08:26-0400 SaO2% (BldA) [Mass fraction] 95 % Dr. Matt Saul MD Work Phone: 9(480)102-539939 [address] 12-24-2024 08:26-0400 Systolic blood pressure 128 mm[Hg] Dr. Matt Saul MD Work Phone: 9(496)630-313539 [address] 12-23-2024 18:43-0400 Inhaled oxygen flow rate 2 L/min Dr. Matt Saul MD Work Phone: [facility] 12-23-2024 14:44-0400 Body height 182.[address] Matt Saul MD Work Phone: 1(697)587-463239 [address] 12-23-2024 14:44-0400 Body mass index (BMI) [Ratio] 26.9 kg/m2 Dr. Matt Saul MD Work Phone: 2(251)738-254231 [place] [address] 12-23-2024 14:44-0400 Body weight [address] Matt Saul MD Work Phone: 2(856)622-828225 [place] [address] 04-04-2024 14:18-0500 Body height 182.[address] Matt Saul MD Work Phone: 6(951)418-353439 [address] 04-04-2024 14:18-0500 Body mass index (BMI) [Ratio] 27.2 kg/m2 Dr. Matt Saul MD Work Phone: [facility] 04-04-2024 14:18-0500 Body weight 91.[address] Matt Saul MD Work Phone: [facility] 04-04-2024 14:18-0500 Diastolic blood pressure 90 mm[Hg] Dr. Matt Saul MD Work Phone: [facility] 04-04-2024 14:18-0500 Heart rate 69 /min Dr. Matt Saul MD Work Phone: [facility] 04-04-2024 14:18-0500 Respiratory rate 16 /min Dr. Matt Saul MD Work Phone: [facility] 04-04-2024 14:18-0500 Systolic blood pressure 132 mm[Hg] Dr. Matt Saul MD Work Phone: [facility] 02-19-2024 12:20-0500 Diastolic blood pressure 72 mm[Hg] Demetri Lord MD Work Phone: [facility] 02-19-2024 12:20-0500 Heart rate 55 /min Demetri Lord MD Work Phone: [facility] 02-19-2024 12:20-0500 Respiratory rate 16 /min Demetri Lord MD Work Phone: [facility] 02-19-2024 12:20-0500 SaO2% (BldA) [Mass fraction] 95 % Demetri Lord MD Work Phone: [facility] 02-19-2024 12:20-0500 Systolic blood pressure 115 mm[Hg] Demetri Lord MD Work Phone: [facility] 02-19-2024 10:40-0500 Body mass index (BMI) [Ratio] 27.18 kg/m2 Demetri Lord MD Work Phone: [facility] 02-19-2024 10:40-0500 Body temperature 98.4 [degF] Demetri Lord MD Work Phone: [facility] 02-19-2024 10:40-0500 Body weight 90.9 kg Demetri Lord MD Work Phone: [facility] 02-16-2024 14:03-0400 Body height 182.9 cm Maddie Jakob CUTTER GRIND TOOL TECHNICIAN.OUTSIDE SALESMAN Work Phone: [facility] 02-16-2024 14:03-0400 Body mass index (BMI) [Ratio] 27.18 kg/m2 Maddie Jakob CUTTER GRIND TOOL TECHNICIAN.OUTSIDE SALESMAN Work Phone: [facility] 02-16-2024 14:03-0400 Body temperature 97.81 [degF] Maddie Jakob CUTTER GRIND TOOL TECHNICIAN.OUTSIDE SALESMAN Work Phone: [facility] 02-16-2024 14:03-0400 Body weight 90.9 kg Maddie Jakob CUTTER GRIND TOOL TECHNICIAN.OUTSIDE SALESMAN Work Phone: [facility] 02-16-2024 14:03-0400 Diastolic blood pressure 82 mm[Hg] Maddie Jakob CUTTER GRIND TOOL TECHNICIAN.OUTSIDE SALESMAN Work Phone: [facility] 02-16-2024 14:03-0400 Heart rate 80 /min Maddie Jakob CUTTER GRIND TOOL TECHNICIAN.OUTSIDE SALESMAN Work Phone: [facility] 02-16-2024 14:03-0400 SaO2% (BldA) [Mass fraction] 92 % Maddie Jakob CUTTER GRIND TOOL TECHNICIAN.OUTSIDE SALESMAN Work Phone: [facility] 02-16-2024 14:03-0400 Systolic blood pressure 138 mm[Hg] Maddie Jakob CUTTER GRIND TOOL TECHNICIAN.OUTSIDE SALESMAN Work Phone: [facility] 08-18-2023 01:00-0400 Body temperature 98.5 [degF] Dr. Matt Saul Work Phone: [facility] 08-18-2023 01:00-0400 Diastolic blood pressure 91 mm[Hg] Dr. Matt Saul Work Phone: [facility] 08-18-2023 01:00-0400 Heart rate 59 /min Dr. Matt Saul Work Phone: [facility] 08-18-2023 01:00-0400 Respiratory rate 18 /min Dr. Matt Saul Work Phone: 8(037)626-015739 [address] 08-18-2023 01:00-0400 SaO2% (BldA) [Mass fraction] 98 % Dr. Matt Saul Work Phone: [facility] 08-18-2023 01:00-0400 Systolic blood pressure 148 mm[Hg] Dr. Matt Saul Work Phone: 8(958)464-564925 [place] [address] 08-17-2023 21:03-0400 Body height 182.[address] Matt Saul Work Phone: 6(276)167-410631 [place] [address] 08-17-2023 21:03-0400 Body mass index (BMI) [Ratio] 27.7 kg/m2 Dr. Matt Saul Work Phone: 0(428)919-839339 [address] 08-17-2023 21:03-0400 Body weight 92.[address] Matt Saul Work Phone: 4(285)831-617731 [place] [address] 05-17-2023 11:30-0500 Body mass index (BMI) [Ratio] 28.2 kg/m2 Dr. Matt Saul Work Phone: 5(554)063-116725 [place] [address] 05-17-2023 11:30-0500 Body temperature 97.8 [degF] Dr. Matt Saul Work Phone: 4(281)214-177325 [place] [address] 05-17-2023 11:30-0500 Body weight 94.[address] Matt Saul Work Phone: 1(519)165-685731 [place] [address] 05-17-2023 11:30-0500 Diastolic blood pressure 76 mm[Hg] Dr. Matt Saul Work Phone: 9(518)611-139539 [address] 05-17-2023 11:30-0500 Heart rate 71 /min Dr. Matt Saul Work Phone: [facility] 05-17-2023 11:30-0500 Respiratory rate 16 /min Dr. Matt Saul Work Phone: [facility] 05-17-2023 11:30-0500 SaO2% (BldA) [Mass fraction] 96 % Dr. Matt Saul Work Phone: [facility] 05-17-2023 11:30-0500 Systolic blood pressure 140 mm[Hg] Dr. Matt Saul Work Phone: [facility] 02-08-2023 13:58-0400 Body height 182.[address] Armond Saul Work Phone: 7(589)468-311039 [address] 02-08-2022 13:51-0400 Body height 182.[address] Armond Saul Work Phone: 4(239)041-756539 [address] 02-08-2022 13:51-0400 Body mass index (BMI) [Ratio] 26.9 kg/m2 Dr. Armond Saul Work Phone: 4(526)161-724025 [place] [address] 02-08-2022 13:51-0400 Body mass index (BMI) [Ratio] 28 kg/m2 Dr. Armond Saul Work Phone: [facility] 02-08-2022 13:51-0400 Body weight 90.[address] Armond Saul Work Phone: [facility] 02-08-2022 13:51-0400 Body weight 93.[address] Armond Saul Work Phone: [facility] 02-08-2022 13:51-0400 Diastolic blood pressure 91 mm[Hg] Dr. Armond Saul Work Phone: [facility] 02-08-2022 13:51-0400 Diastolic blood pressure 84 mm[Hg] Dr. Armond Saul Work Phone: [facility] 02-08-2022 13:51-0400 Heart rate 70 /min Dr. Armond Saul Work Phone: [facility] 02-08-2022 13:51-0400 Heart rate 67 /min Dr. Armond Saul Work Phone: [facility] 02-08-2022 13:51-0400 Respiratory rate 16 /min Dr. Armond Saul Work Phone: [facility] 02-08-2022 13:51-0400 Respiratory rate 18 /min Dr. Armond Saul Work Phone: [facility] 02-08-2022 13:51-0400 SaO2% (BldA) [Mass fraction] 95 % Dr. Armond Saul Work Phone: [facility] 02-08-2022 13:51-0400 SaO2% (BldA) [Mass fraction] 94 % Dr. Armond Saul Work Phone: [facility] 02-08-2022 13:51-0400 Systolic blood pressure 155 mm[Hg] Dr. Armond Saul Work Phone: [facility] 02-08-2022 13:51-0400 Systolic blood pressure 132 mm[Hg] Dr. Armond Saul Work Phone: [facility] 11-08-2016 13:10-0400 BMI (Body Mass Index) 28.87 kg/m2 [facility] Work Phone: 11-08-2016 13:10-0400 BP Diastolic 68 mm[Hg] [facility] Work Phone: 11-08-2016 13:10-0400 BP Systolic 130 mm[Hg] [facility] Work Phone: 11-08-2016 13:10-0400 Height 180.34 cm [facility] Work Phone: 11-08-2016 13:10-0400 Pulse (Heart Rate) 58 /min [facility] Work Phone: 11-08-2016 13:10-0400 Respiratory [...] Provider Facility Start: 02-26-2025 ambulatory Oneyda Solano Facility:[facility] Start: 01-15-2025 Registered Recurring Oneyda Solano PA -Physical Therapy Work Phone: Start: 01-06-2025 End: 01-06-[address] Matt Saul MD Work Phone: -Laboratory Specimen Start: 01-06-2025 End: 01-06-[address] Matt Saul MD -Laboratory Specimen Work Phone: Start: 01-06-2025 End: 01-06-2025 ambulatory Matt Saul Facility:[facility] Start: 12-26-2024 Encounter for other preprocedural examination [facility] Start: 12-26-2024 Encounter for preprocedural cardiovascular examination [facility] Start: 12-24-2024 Non-patient / Non-visit Dr. Yumiko Carrillo MD -[facility] Work Phone: Start: 12-23-2024 Non-patient / Non-visit [facility] Work Phone: Start: 12-23-2024 End: 12-24-2024 ambulatory Major Yi Facility:[facility] Start: 12-23-2024 End: 12-24-2024 Evaluation and management of inpatient Dr. Major Yi DO -Medical Surgical 3 Work Phone: Start: 12-23-2024 End: 12-24-[address] Matt Saul MD Work Phone: -Medical Surgical 3 Start: 11-27-2024 ambulatory Major Carrascoi ty:[facility] Start: 11-27-2024 Non-patient / Non-visit Dr. Seven Grey MD -[facility] Work Phone: Start: 11-26-2024 End: 11-26-[address] Matt Saul MD Work Phone: -Cat Scan [facility] Start: 11-26-2024 End: 11-26-[address] Major Yi DO -Cat Scan [facility] Work Phone: Start: 11-26-2024 End: 11-26-2024 ambulatory Major Yi Facility:[facility] Start: 07-09-2024 End: 07-09-2024 ambulatory Yang WAGGONER [place] Start: 06-18-2024 End: 06-18-[address] Matt Saul MD Work Phone: [facility] Work Phone: Start: 06-18-2024 End: 06-18-[address] Matt Saul MD -Radiology, [place] Work Phone: Start: 06-18-2024 End: 06-18-2024 ambulatory Matt Colebrohard Facility:[facility] Start: 04-04-2024 End: 04-04-[address] Nathan Purcell MD -[facility] Work Phone: Start: 04-04-2024 End: 04-04-2024 ambulatory Nathan Purcell [place] Start: 02-26-2024 End: 02-26-2024 ambulatory [facility] Facility:[facility] Start: 02-26-2024 End: 02-26-2024 Patient encounter procedure Maddie Bernstein APRN.OUTSIDE SALESMAN Work Phone: General Surgery Comment on above: History of colonic p olyps (Primary Dx) Start: 02-19-2024 End: 02-19-2024 ambulatory [facility] Facility:[facility] Start: 02-19-2024 End: 02-19-2024 Subsequent hospital visit by physician Demetri Lord MD Work Phone: Ambulatory Surgery Comment on above: History of colonic p olyps [Z86.0100] Start: 02-16-2024 End: 02-16-2024 ambulatory [facility] Facility:[facility] Start: 02-16-2024 End: 02-16-2024 Patient encounter procedure Maddie Bernstein APRN.OUTSIDE SALESMAN Work Phone: General Surgery Comment on above: History of colonic p olyps (Primary Dx); Screen for colon cancer Start: 02-16-2024 End: 03-18-2024 Telephone encounter Molly VEGA General Surgery Comment on above: 02-19-2024 Colonscoo py Start: 08-17-2023 End: 08-18-2023 Emergency department patient visit Dr. Matt Saul Work Phone: [facility]-Emergency Department Work Phone: Start: 05-17-2023 End: 05-17-[address] Matt Saul Work Phone: [facility] Work Phone: Start: 03-15-2023 Non-patient / Non-visit Dr. Jabier Saul Work Phone: [facility] Work Phone: Start: 03-14-2023 Non-patient / Non-visit Dr. Jabier Saul Work Phone: [facility] Start: 03-14-2023 End: 03-14-[address] Armond Saul Work Phone: [facility] Work Phone: Start: 03-14-2023 End: 03-14-[address] Armond Saul Work Phone: [facility]Cardi[facility] Work Phone: Start: 02-08-2023 End: 02-08-[address] Armond Saul Work Phone: [facility] Work Phone: Start: 05-20-2022 Non-patient / Non-visit Dr. Jabier Saul Work Phone: [facility] Start: 05-17-2022 Non-patient / Non-visit Dr. Jabier Saul Work Phone: [facility] Start: 05-17-2022 End: 05-17-[address] Armond Saul Work Phone: [facility] Work Phone: Start: 05-17-2022 End: 05-17-[address] [facility] Start: 05-04-[address] Rowdy Saul Work Phone: [facility] Start: 02-08-2022 End: 02-08-[address] Armond Saul Work Phone: [facility] Procedures Date Procedure Procedure [...] dx w/collj spec when pfrmd Maddie Bernstein CUTTER GRIND TOOL TECHNICIAN.OUTSIDE SALESMAN Work Phone: Start: 02-19-2024 Colonoscopy Demetri abernathy [...] - S marciano or Plasma Maddie Bernstein APRN.OUTSIDE SALESMAN Work Phone: Start: 03-31-2014 End: 04-02-2014 *Hepatic [...] P,Tdap,Td Vaccine (4 - Td or Tdap) [facility] Start: 02-18-2027 Screening for malign ant neoplasm of colon [facility] Start: 12-24-2024 Patient discharge [facility] Start: 12-23-2024 Care regimes management [facility] Start: 12-23-2024 Notification of physician [facility] Start: 12-23-2024 [facility] Start: 12-23-2024 Application of intermittent pneumatic compression device [facility] Start: 12-23-2024 Following clinical p athway protocol [facility] Start: 12-23-2024 Anes arthroscopic to bernard shoulder replacement ANESTH SHOULDER REPLACEMENT [facility] Start: 12-23-2024 Prosthetic total arthroplasty of left shoulder RECONSTRUCT SHOULDER JOINT [facility] Start: 12-23-2024 Admission procedure [facility] Start: 12-23-2024 Ambulation therapy management [facility] Start: 12-23-2024 Application of device [facility] Start: 12-23-2024 Assessment of risk o f venous thromboembolism [facility] Start: 12-23-2024 Catheterization of vein [facility] Start: 12-23-2024 Following clinical p athway protocol [facility] Start: 12-23-2024 Incentive spirometry [facility] Start: 12-23-2024 Introduction of urin angeline catheter [facility] Start: 12-23-2024 Measuring intake and output [facility] Start: 12-23-2024 Neurovascular assessment [facility] Start: 12-23-2024 Patient education [facility] Start: 12-23-2024 Procedure discontinued [facility] Start: 12-23-2024 Provision of activit y privileges [facility] Start: 12-23-2024 Recommendation to co ritika with treatment [facility] Start: 12-23-2024 Referral to occupati onal therapist [facility] Start: 12-23-2024 Vital signs measurements [facility] Start: 12-23-[address] [facility] Start: 12-23-2024 [facility] Start: 12-23-[address] [facility] Start: 02-26-2024 End: 02-26-2024 Patient encounter procedure 02/26/2024 1:00 PM EST Office Visit General Surgery [address] [place] [address] Maddie Bernstein APRN.OUTSIDE SALESMAN [address] [place] [address] Colonsocopy follow up 02-19-2024 General Surgery Comment on above: Colonsocopy follow u p 02-19-2024 Start: 02-19-2024 End: 02-19-2024 Patient encounter procedure 02/19/2024 11:45 AM EST Appointment Ambulatory Surgery [address] [place] [address] Demetri Lord MD [address] [place] [address] Ambulatory Surgery Start: 08-18-2023 [facility] Start: 08-17-2023 [facility] Start: 07-01-2023 Screening for malign ant neoplasm of colon [facility] Start: 04-17-2023 Advance Directive Discussion Advance Directive Discussion [facility] Start: 03-21-2022 Diabetes Screening Diabetes Screenin g [facility] Start: 11-15-2021 Pneumococcal Vaccine : 65+ (2 of 2 - PPSV23 or PCV20) Pneumococcal Vaccine: 65+ (2 of 2 - PPSV23 or PCV20) [facility] Start: 04-02-2019 Lipid panel Lipid Screening [facility] Start: 05-11-2017 End: 05-11-2017 Appointment Appointment [facility] Work Phone: Start: 11-08-2016 End: 11-08-2016 Appointment Appointment [facility] Work Phone: Start: 11-08-2016 End: 11-08-2016 *Hepatic Function Panel *Hepatic Function Panel [facility] Work Phone: Start: 11-08-2016 End: 11-08-2016 GERRY GARRETT [facility] Work Phone: Start: 11-08-2016 End: 11-08-2016 Follow Up Appt 6 months Follow Up Appt 6 months [facility] Work Phone: Start: 11-08-2016 End: 11-08-2016 Lipid 1996 panel *Lipid Profile CC PCP [facility] Work Phone: Start: 10-19-2016 End: 11-08-2016 *Hepatic Function Panel *Hepatic Function Panel [facility] Work Phone: Start: 10-19-2016 [...] Lipid panel [AGGREGATE] *Lipid Profile CC PCP [facility] Work Phone: Start: 03-31-2015 End: 04-08-2015 *Hepatic Function Panel *Hepatic Function Panel [facility] Work Phone: Start: 03-31-2015 End: 03-31-2015 GERRY GARRETT [facility] Work Phone: Start: 03-31-2015 End: 03-31-2015 Follow Up Appt 1 year Follow Up Appt 1 year [facility] Work Phone: Start: 03-31-2015 End: 04-08-2015 Lipid panel [AGGREGATE] *Lipid Profile CC PCP [facility] Work Phone: Start: 12-29-2014 End: 12-30-2014 Stress Echocardiogram (treadmill) Stress Echocardiogram (treadmill) [facility] Work Phone: Start: 03-31-2014 End: 04-02-2014 *Hepatic Function Panel *Hepatic Function Panel [facility] Work Phone: Start: 03-31-2014 End: 03-31-2014 GERRY GERRY [facility] Work Phone: Start: 03-31-2014 End: 03-31-2014 Follow Up Appt 1 year Follow Up Appt 1 year [facility] Work Phone: Start: 03-31-2014 End: 04-02-2014 Lipid panel [AGGREGATE] *Lipid Profile CC PCP [facility] Work Phone: Start: 03-31-2014 End: 03-31-2014 Stress Echocardiogram (treadmill) Stress Echocardiogram (treadmill) [facility] Work Phone: Start: 06-10-2013 End: 06-10-2013 GERRY GERRY [facility] Work Phone: Start: 06-10-2013 End: 06-10-2013 Follow Up Appt 1 year Follow Up Appt 1 year [facility] Work Phone: Start: 03-25-2013 End: 03-25-2013 GERRY GERRY [facility] Work Phone: Start: 03-25-2013 End: 03-25-2013 Follow Up Appt 1 year Follow Up Appt 1 year [facility] Work Phone: Start: 08-07-2005 Hepatitis B surface antibody level LDL Cholesterol [facility] Start: 1993 Screening for malign ant neoplasm of colon [facility] Start: 1966 Annual PCP Team [employer] Numerical Control Programmer kavin Disease Visit Annual PCP Team [facility] Disease [facility] [facility]: [facility] BP Controlled (<130/80) BP Controlle d (<130/80) [facility] Start: 1966 Depression Screening Depression Scre ening [facility] Start: 1966 Hepatitis C screening Hepatitis C Sc [facility] Patient Education [employer] Work Phone: Patient referral [facility] Work Phone: End: 02-15-2025 Screening colonoscopy COLONOSCOPY SCREENING Endoscopy Routine History of colonic polyps Screen for colon cancer 1 Occurrences starting 02/16/2024 until 02/15/2025 [facility] Work Phone: Comment on above: 1 Occurrences starti ng 02/16/2024 until 02/15/2025 SURGICAL PATHOLOGY [facility] Work Phone: Comment on above: Release Upon Orderin g for 1 Occurrences starting 02/19/2024, 1 completed Immunizations Immunization Date Immunization Notes Care Provider Fa cility 07-13-2020 Covid (Moderna) Dr. Selena Saul Work Phone: [facility] 06-15-2020 Kia (Moderna) Dr. Selena Saul Work Phone: [facility] 01-30-2014 influenza, seasonal, injectable Maddie Jakob CUTTER GRIND TOOL TECHNICIAN.OUTSIDE SALESMAN Work Phone: [facility] Work Phone: 02-09-2013 influenza virus vaccine, unspecified formulation Maddie Jakob CUTTER GRIND TOOL TECHNICIAN.OUTSIDE SALESMAN Work Phone: [facility] 06-11-2012 tetanus toxoid, reduced diphtheria toxoid, and acellular pertussis vaccine, adsorbed Maddie Jakob CUTTER GRIND TOOL TECHNICIAN.OUTSIDE SALESMAN Work Phone: [facility] 06-11-2012 zoster vaccine, live Kimberl ey Jakob CUTTER GRIND TOOL TECHNICIAN.OUTSIDE SALESMAN Work Phone: [facility] 02-05-2011 influenza virus vaccine, unspecified formulation Maddie Jakob CUTTER GRIND TOOL TECHNICIAN.OUTSIDE SALESMAN Work Phone: [facility] 01-26-2010 influenza virus vaccine, unspecified formulation Maddie Jakob CUTTER GRIND TOOL TECHNICIAN.OUTSIDE SALESMAN Work Phone: [facility] Work Phone: 01-21-2009 influenza virus vaccine, unspecified formulation Maddie Jakob CUTTER GRIND TOOL TECHNICIAN.OUTSIDE SALESMAN Work Phone: [facility] Work Phone: 02-21-2008 influenza virus vaccine, unspecified formulation Maddie Jakob CUTTER GRIND TOOL TECHNICIAN.OUTSIDE SALESMAN Work Phone: [facility] Work Phone: 02-20-2007 influenza virus vaccine, unspecified formulation Maddie Jakob HALL Work Phone: [facility] 07-21-2003 tetanus and diphther ia toxoids, adsorbed, preservative free, for adult use (2 Lf of tetanus toxoid and 2 Lf of diphtheria toxoid) Maddie Jakob HALL Work Phone: [facility] Payers Date Payer Category Payer Self-pay [id number] 2017 Private Health Insurance AETNA S UPPLEMENT AETNA MEDICARE SUPPLEMENT [id number] 2017-Present [phone] [address] [address] [place] [address] Indemnity [id number] 2017 Private Health Insurance [facility] [id number] 2014 Unknown [id number] 2013 Medicare MEDICARE MEDICAR E A AND B [id number] 2013-Present [phone] [address] [address] [place] [address] Medicare [id number] 2013 Medicare [id number] Unknown [id number] Unknown [id number]. [id number] Unknown [id number]. 2.462 Unknown [id number]. 2.462 Unknown [id number]. 2.462 Unknown [id number] [id number]. 2.462 Unknown [id number] [id number]. 2.462 Unknown [id number]. 2.462 Unknown [id number] [id number]. 2.462 Unknown [id number] [id number]. 2.462 Unknown [id number]. 2.462 Social History Date Type Detail Facility Start: 02-08-2022 End: 08-17-2023 Tobacco smoking status TXIS Unknown if ever smoked [facility] Start: 1950 Sex Assigned At Male [facility] Start: 07-20-2017 End: 12-03-2024 Tobacco smoking status TXIS Never smoked tobacco [facility] Start: 07-20-2017 Tobacco use and exposure Smokeless tobacco non-user [facility] Start: 02-16-2024 End: 02-23-2024 Alcoholic beverage intake Current non-drinker of alcohol (finding) [facility] Start: 02-16-2024 End: 02-19-2024 History of [address] [facility] Start: 02-16-2024 End: 02-19-2024 Tobacco use panel [facility] National Score (1-10 0), lower number is lower risk 75 [facility] Start: 1950 [facility] assigned at [facility] Start: 07-03-2024 Sex Male (finding) [facility] Medical Equipment Procedure Code Equipment Code Equipment Origin al Text Equipment Identifier Dates GLENOSPHERE FDA Start: 12-23-2024 HUMERAL STEM FDA Start: 12-23-2024 HUMERAL SYSTEM FDA Start: 09-08-2025 LATERALIZED BASEPLATE FDA Sta rt: 12-23-2024 SCREW FDA Start: 12-23-2024 SHORT POST FDA Start: 12-23-2024 Goals Date Patient Goal Desired Activity /State Functional Status Date Assessment Result Facility 12-24-[address] [facility] Work Phone: Mental Status Date Assessment Result Facility 12-24-2024 Cognitive function Level Of Cons ciousness Awake;Alert;Appropriate;Follow s Commands [facility] Work Phone: 12-24-2024 Cognitive function Voice/Name [facility] Work Phone: 08-17-2023 Cognitive function Voice/Name [facility] Work Phone: Clinical Notes 08-17-2006 to 12-24-2024 Note Date & Type Note Facility 12-24-2024 Discharge summary Note Date/Time December 24, 2024 11:59am [facility] Medical Records Department [address] [place] [address] Discharge Summary 12/24/24 1018 MR#: [id number] Acct: [id number] Name: MARIA E GUTHRIE Rep #:[id number] : 1950 74 From: Oneyda WAGGONER PCP: Dr. Matt Saul MD Status :ADM BAR Location: [place] [address] Providers Date of Admission: 12/23/24 Date of [...] IMPRESSION: Right shoulder reverse arthroplasty. Reading Location: [place] [address] D/C Instructions Discharge Activity: May Shower Weight [...] Dr. Matt Saul MD; EDILSON Diaz~ Signed [facility] Work Phone: 1(599) 913-736709-09-2025 Discharge summary [facility] Medical Records Department [address] [place] [address] Discharge Summary 12/24/24 1018 MR#: [id number] Acct: [id number] Name: MARIA E GUTHRIE Rep #:[id number] : 1950 74 From: Oneyda WAGGONER PCP: Dr. Matt Saul MD Status :ADM BAR Location: [place] [address] Providers Date of Admission: 12/23/24 Date of [...] IMPRESSION: Right shoulder reverse arthroplasty. Reading Location: [place] [address] D/C Instructions Discharge Activity: May Shower Weight [...] Dr. Matt Saul MD; EDILSON Diaz~ Signed [facility]09-09-2025 Progress note Author Major Carrillo [facility] Note Date/Time December 24, 2024 9:42am [facility] Medical Records Department [address] [place] [address] Progress Note - Hospitalist 12/24/24913 MR#: [id number] Acct: [id number] Name: MARIA E GUTHRIE Rep #:[id number] : 1950 74 From: Major mathews MD PCP: Dr. Matt Saul MD Status :ADM BAR Location: [place] [address] Subjective Subjective Doing well, pain is controlled [...] IMPRESSION: Right shoulder reverse arthroplasty. Reading Location: [place] [address] Physical Exam Narrative General: Alert, Oriented x3, [...] with questions Charges/Coding Visit Charges Inpatient E&M: 74041 Subs Hosp L2 12/24/24 0942 <Electronically signed by Major Carrillo MD> Cosigner Signature (if applicable): CC: ~ Signed ADDENDUM by Dr. Major Carrillo MD on 12/24/24 at 0942 Visit Charges Office Visits / Consults: 17581 OV L3 Est 20min 12/24/24 0942<Electronically signed by Major Carrillo MD> Cosigner Signature (if applicable): cc: ~* Signed [facility] Work Phone: 1(572) 104-209009-09-2025 [facility] Medical Records Department [address] [place] [address] Discharge Summary 12/24/24 1018 MR#: [id number] Acct: [id number] Name: MARIA E GUTHRIE Rep #: [id number] : 1950 74 From: Oneyda WAGGONER PCP: Dr. Matt Saul MD Status:ADM BAR Location: [address] Providers Date of Admission: 12/23/24 Date [...] 20 H, Creatinine 1.01 (more content not included)...[facility]09-09-2025 Progress note [facility] Medical Records Department [address] [place] [address] Progress Note - Hospitalist 12/24/24913 MR#: [id number] Acct: [id number] Name: MARIA E GUTHRIE Rep #:[id number] : 1950 74 From: Major mathews MD PCP: Dr. Matt Saul MD Status :ADM BAR Location: [place] [address] Subjective Subjective Doing well, pain is controlled [...] IMPRESSION: Right shoulder reverse arthroplasty. Reading Location: [place] [address] Physical Exam Narrative General: Alert, Oriented x3, [...] with questions Charges/Coding Visit Charges Inpatient E&M: 25137 Subs Hosp L2 12/24/24 0942 Cosigner Signature (if applicable): CC: ~ Signed ADDENDUM by Dr. Major Carrillo MD on 12/24/24 at 0942 Visit Charges Office Visits / Consults: 06892 OV L3 Est 20min 12/24/24 0942 Cosigner Signature (if applicable): cc: ~* Signed [facility]09-08-2025 Consult note Author Hansel Sultana [facility] Note Date/Time December 23, 2024 8:16pm [facility] Medical Records Department [address] [place] [address] Consultation - Hospitalist 12/23/24 1608 MR#: [id number] Acct: [id number] Name: MARIA E GUTHRIE Rep #:[id number] : 1950 74 From: Hansel foreman DO PCP: Dr. Matt Saul MD Status :ADM BAR Location: [place] [address] Assessment & Plan Assessment/Plan (1) Right rotator cuff tear arthropathy: PLAN: Plan Patient is a 74-year-old male who presented to [facility] on 12/23/2024 for planned right shoulder [...] is a 74 M who presented to [facility] on 12/23/2024 for planned orthopedic procedure. [...] No other acute concerns at this time. [facility] Medical History Wears hearing aid Wears glasses Wears partial dentures History of steroid therapy Arthritis Dietary restriction Non-smoker History of echocardiogram History of stress test Cardiology follow-up encounter Diabetes Myocardial infarct Hypertension Osteoarthritis Gout Atherosclerosis of coronary artery of [place] heart without angina pectoris Hyperlipidemia Home Medications [...] Type Severity Reaction Status Date / Time [place]clje-THM-CkQ Reductase AdvReac Mild myalgias Verified 12/23/24 10:26 Inhibitor (Fpgnpkk-Byw-Gtv Reductase Inhibitor) Family History Brother CAD (coronary [...] IMPRESSION: Right shoulder reverse arthroplasty. Reading Location: [place] [address] Charges/Coding Visit Charges Inpatient E&M: 46322 Subs Hosp L2 12/23/242015 <Electronically signed by Hansel Sultana DO> Cosigner Signature (if applicable): CC: Dr. Matt Saul MD; Dr. Major Yi DO~ Signed [facility] Work Phone: 1(464) 435-173909-08-2025 Consult note [facility] Medical Records Department [address] [place] [address] Consultation - Hospitalist 12/23/24 1608 MR#: [id number] Acct: [id number] Name: MARIA E GUTHRIE Rep #:[id number] : 1950 74 From: Hansel foreman DO PCP: Dr. Matt Saul MD Status :ADM BAR Location: [place] [address] Assessment & Plan Assessment/Plan (1) Right rotator cuff tear arthropathy: PLAN: Plan Patient is a 74-year-old male who presented to [facility] on 12/23/2024 for planned right shoulder [...] is a 74 M who presented to [facility] on 12/23/2024 for planned orthopedic procedure. [...] No other acute concerns at this time. [facility] Medical History Wears hearing aid Wears glasses Wears partial dentures History of steroid therapy Arthritis Dietary restriction Non-smoker History of echocardiogram History of stress test Cardiology follow-up encounter Diabetes Myocardial infarct Hypertension Osteoarthritis Gout Atherosclerosis of coronary artery of [place] heart without angina pectoris Hyperlipidemia Home Medications [...] Type Severity Reaction Status Date / Time Wgegasi-WCP-QdG Reductase AdvReac Mild myalgias Verified 12/23/24 10:26 Inhibitor (Acdgmrt-Ifi-Zzi Reductase Inhibitor) Family History Brother CAD (coronary [...] IMPRESSION: Right shoulder reverse arthroplasty. Reading Location: [place] [address] Charges/Coding Visit Charges Inpatient E&M: 16581 Subs Hosp L2 12/23/242015 Cosigner Signature (if applicable): CC: Dr. Matt Salu MD; Dr. Major Yi, DO~ Signed [facility]09-08-2025 Consult note Author Osei Lubin [facility] Note Date/Time December 23, 2024 2:33pm [facility] Medical Records Department [address] [place] [address] Anesthesia Postop Eval II 12/23/24 1433 MR#: [id number] Acct: [id number] Name: MARIA E GUTHRIE Rep #:[id number] : 1950 74 From: Osei Choudhury PCP: Dr. Matt Saul MD Status :ADM BAR Y Race: C Location: [place] [address] Anesthesia Postop Eval I Sum Postop Eval Completion status Anesthesia document: Postop Eval 1 completed: Yes Anesthesia Postop Eval I Summary Anesthesia Postop Eval I Summary: Anesthesia Postop Eval I: Assessment Summary Airway patent Yes 12/23/24 13:32 AGENCY MANAGER.CSIR Spontaneous unlabored Yes 12/23/24 13:32 AGENCY MANAGER.CSIR respirations Mental status nausea No 12/23/24 13:32 AGENCY MANAGER.CSIR Vomiting No 12/23/24 13:32 AGENCY MANAGER.CSIR Anesthesia Postop Eval I: Fluid Summary Crystalloid volume administer 1,300 12/23/24 13:32 AGENCY MANAGER.CSIR (ml) Colloids volume administered ( ml) Blood Product volume administered (ml) Total IV fluid infused 1,300 12/23/24 13:32 AGENCY MANAGER.CSIR Anesthesia Postop Eval I: Summary Notes Anesthesia Complication No 12/23/24 13:32 AGENCY MANAGER.CSIR Anesthesia Complication Comment: Post-operative progress note Anesthesia: Postop Eval II Evaluation Mental status: Awake and Calm Pain Level: 1 nausea: No Vomiting: No Complications Anesthesia Complication: No 12/23/24 1433 <Electronically signed by Osei Lubin MD> Date _ Osei Lubin MD Cosigner Signature: Date CC: ~ Signed [facility] Work Phone: 1(381) 428-726109-08-2025 Consult note Author Priscilla Willard [facility] Note Date/Time December 23, 2024 1:33pm [facility] Medical Records Department [address] [place] [address] Anesthesia Postop Eval I 12/23/24 1332 MR#: [id number] Acct: [id number] Name: MARIA E GUTHRIE Rep #:[id number] : 1950 74 From: Priscilla Willard CRNA PCP: Dr. Matt Saul MD Status :REG SDC Y Race: C Location: [place] [address] Anesthesia: Postop Eval I Current Vital Signs [...] Priscilla cruz CRNA> Date _ Priscilla Willard AGENCY MANAGER Cosigner Signature: Date CC: ~ Signed [facility] Work Phone: 1(974) 194-162209-08-2025 Evaluation note* Diagnosis Onset Date Resolution Status Admit Date Right rotator cuff tear arthropathy acute December 23 1:06pm Status post reverse total arthroplasty of right shoulder acute S epte2024 1:06pm [facility] Work Phone: 1(523) 923-304709-08-2025 Evaluation note* Diagnosis Onset Date Resolution Status Admit Date Right rotator cuff tear arthropathy inactive Maureen 8th, 2 025 1:06pm Status post reverse total arthroplasty of right shoulder inactive December 23 1:06pm [facility] Work Phone: 1(980) 325-391809-08-2025 Consult note [facility] Medical Records Department [address] [place] [address] Anesthesia Postop Eval II 12/23/24 1433 MR#: [id number] Acct: [id number] Name: MARIA E GUTHRIE Rep #:[id number] : 1950 74 From: Osei Choudhury PCP: Dr. Matt Saul MD Status :ADM BAR Y Race: C Location: [address] Anesthesia Postop Eval I Sum Postop Eval Completion status Anesthesia document: Postop Eval 1 completed: Yes Anesthesia Postop Eval I Summary Anesthesia Postop Eval I Summary: Anesthesia Postop Eval I: Assessment Summary Airway patent Yes 12/23/24 13:32 AGENCY MANAGER.CSIR Spontaneous unlabored Yes 12/23/24 13:32 AGENCY MANAGER.CSIR respirations Mental status nausea No 12/23/24 13:32 AGENCY MANAGER.CSIR Vomiting No 12/23/24 13:32 AGENCY MANAGER.CSIR Anesthesia Postop Eval I: Fluid Summary Crystalloid volume administer 1,300 12/23/24 13:32 AGENCY MANAGER.CSIR (ml) Colloids volume administered ( ml) Blood Product volume administered (ml) Total IV fluid infused 1,300 12/23/24 13:32 AGENCY MANAGER.CSIR Anesthesia Postop Eval I: Summary Notes Anesthesia Complication No 12/23/24 13:32 AGENCY MANAGER.CSIR Anesthesia Complication Comment: Post-operative progress note Anesthesia: Postop Eval II Evaluation Mental status: Awake and Calm Pain Level: 1 nausea: No Vomiting: No Complications Anesthesia Complication: No 12/23/24 1433 MD> Date _ Osei Lubin MD Cosigner Signature: Date CC: ~ Signed [facility]09-08-2025 Radiology Diagnostic study note [facility] Imaging Services [address] [place] [address] Shoulder min 2 Views MR#: [id number] Acct: [id number] Name: MARIA E GUTHRIE Rep #: [id number] : 1950 M 74 From: Zhou Suárez MD PCP: Dr. Matt Saul MD Status: REG [facility] Study:Shoulder min 2 Views Date of Exam: 12/23/24 Exam# [id number] Ordering Dr: Major Yi DO PROCEDURE: SHOULDER [...] IMPRESSION: Right shoulder reverse arthroplasty. Reading Location: [place] [address] CC: Dr. Matt Saul MD; Dr. Major Yi DO ~ Churn Driller: Signed [facility]09-08-2025 Consult note [facility] Medical Records Department [address] [place] [address] Anesthesia Postop Eval I 12/23/24 1332 MR#: [id number] Acct: [id number] Name: MARIA E GUTHRIE Rep #:[id number] : 1950 74 From: Priscilla Willard CRNA PCP: Dr. Matt Saul MD Status :[facility] Y Race: C Location: [place] [address] Anesthesia: Postop Eval I Current Vital Signs Temperature: 97 F Pulse Rate: 89 Blood Pressure: 145/87 Respiratory Rate: 18 Pulse Ox: 93 Assessment Airway patent: Yes Spontaneous unlabored respirations: Yes nausea: No Vomiting: No Anesthesia Complication: No Fluid Hydration Crystalloid volume administer (ml): 1,300 Total IV fluid infused: 1,300 Progress Note Anesthesia document: Postop Eval 1 completed: Yes 12/23/24 1333 a AGENCY MANAGER> Date _ Priscilla Willard AGENCY MANAGER Cosigner Signature: Date CC: ~ Signed [facility]09-08-2025 Procedure note [facility] Medical Records Department [address] [facility] [place] [address] Operative Report 12/23/24 1322 MR#: [id number] Acct: [id number] Name: MARIA E GUTHRIE Rep #:[id number] : 1950 74 From: Major lake DO PCP: Dr. Matt Saul MD Status :[facility] Location: [place] [address] Operative Report (Standard) Operative Information Date of Procedure: 12/23/24 Pre-Operative Diagnosis: Right shoulder rotator cuff tear arthropathy Post-Operative Diagnosis: Right shoulder rotator cuff tear arthropathy Surgery/Procedure Performed: Right reverse total shoulder arthroplasty leather finisher: Yes Briar Cutter: Oneyda Solano Tasks completed by elementary assistant teacher: Opening & closing, Implanting device, Hemostasis: Electrocautery [...] No Description of surgery: Patient arrived to [facility] morning of the procedure and was [...] positioned in the beachchair position. A well-padded headstart teacher was applied. The nonoperative extremity was placed [...] appropriate depth with good press-fit purchase. A Afton was used to confirm depth. Cortical screws [...] operative suite. He was transferred to the rbrohard and subsequently to PACU in stable condition. Need for skilled machine operator assistant: Oneyda Solano PA-C was critical to the outcome of thecase. During the course of the procedure the physician machine operator assistant played a vitalrole. Her intimate knowledge [...] Saul MD; Dr. Major Yi, DO~ Signed [facility]09-08-2025 Consult note Author Osei Lubin [facility] Note Date/Time December 23, 2024 10:57am [facility] Medical Records Department [address] [place] [address] Pre-Anesthesia Evaluation 12/23/24 1052 MR#: [id number] Acct: [id number] Name: MARIA E GUTHRIE Rep #:[id number] : 1950 74 From: Osei Choudhury PCP: Dr. Matt Saul MD Status :REG [facility] Y Race: C Location: [place] [address] ASA Classification* ASA Classification ASA Classification: 2 [...] SHOULDER ARTHROPLASTY Anesthesia History Anesthesia History - respiratory care technician: Anesthesia History - respiratory care technician Hx Hospitalization No 12/03/24 10:59 Any Problems [...] take am of surgery PONV PONV - respiratory care technician: PONV - respiratory care technician Female No 12/03/24 10:59 HX of Motion [...] 12/23/24 10:31 Respiratory Assessment Respiratory Assessment - respiratory care technician: Respiratory Tract Infection Hx - respiratory care technician Hx Respiratory Tract Infection No 12/03/24 10:59 STOP Sleep Apnea STOP Sleep Apnea - respiratory care technician: STOP Sleep Apnea - respiratory care technician Hx Hypertension Yes: CONTROLLED WITH MED 12/03/24 [...] Tobacco Use History Tobacco Use History - respiratory care technician: Tobacco Use History - respiratory care technician Tobacco Use Smoking Status Never smoker 12/03/24 10:59 Hx Tobacco Use No 12/03/24 10:59 Years Smoking Packs Smoked per Day Smoking Cessation Date was within the last 15 years Hx Smoking Cessation Date Hx Smoking Cessation Counseling Hematologic Medial History Hematologic Hx - respiratory care technician: 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 Hx of Blood Transfusion No 12/03/24 10:59 [...] confused, unrespo /Reproduction History /Reproductive History - respiratory care technician: /Reproductive Hx- respiratory care technician Hx Now No 12/03/24 10:59 Gestational Age [...] Osteoarthritis Gout Atherosclerosis of coronary artery of [place] heart without angina pectoris Hyperlipidemia Home Medications [...] Type Severity Reaction Status Date / Time Ijtyqut-TUE-BbM Reductase AdvReac Mild myalgias Verified 12/23/24 10:26 Inhibitor (Gpwgmgw-Ztl-For Reductase Inhibitor) Family History Brother CAD (coronary [...] MD Cosigner Signature: Date CC: ~ Signed [facility] Work Phone: 1(675) 625-679909-08-2025 Consult note [facility] Medical Records Department [address] [place] [address] Pre-Anesthesia Evaluation 12/23/24 1052 MR#: [id number] Acct: [id number] Name: MARIA E GUTHRIE Rep #:[id number] : 1950 74 From: Osei Choudhury PCP: Dr. Matt Saul MD Status :REG SDC Y Race: C Location: [place] [address] ASA Classification* ASA Classification ASA Classification: 2 [...] SHOULDER ARTHROPLASTY Anesthesia History Anesthesia History - respiratory care technician: Anesthesia History - respiratory care technician Hx Hospitalization No 12/03/24 10:59 Any Problems [...] take am of surgery PONV PONV - respiratory care technician: PONV - respiratory care technician Female No 12/03/24 10:59 HX of Motion [...] 12/23/24 10:31 Respiratory Assessment Respiratory Assessment - respiratory care technician: Respiratory Tract Infection Hx - respiratory care technician Hx Respiratory Tract Infection No 12/03/24 10:59 STOP Sleep Apnea STOP Sleep Apnea - respiratory care technician: STOP Sleep Apnea - respiratory care technician Hx Hypertension Yes: CONTROLLED WITH MED 12/03/24 [...] Tobacco Use History Tobacco Use History - respiratory care technician: Tobacco Use History - respiratory care technician Tobacco Use Smoking Status Never smoker 12/03/24 10:59 Hx Tobacco Use No 12/03/24 10:59 Years Smoking Packs Smoked per Day Smoking Cessation Date was within the last 15 years Hx Smoking Cessation Date Hx Smoking Cessation Counseling Hematologic Medial History Hematologic Hx - respiratory care technician: 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 Hx of Blood Transfusion No 12/03/24 10:59 [...] confused, unrespo /Reproduction History /Reproductive History - respiratory care technician: /Reproductive Hx- respiratory care technician Hx Now No 12/03/24 10:59 Gestational Age [...] Osteoarthritis Gout Atherosclerosis of coronary artery of [place] heart without angina pectoris Hyperlipidemia Home Medications [...] Type Severity Reaction Status Date / Time Vpyydoi-XDI-BwV Reductase AdvReac Mild myalgias Verified 12/23/24 10:26 Inhibitor (Fxouppy-Kdj-Xqj Reductase Inhibitor) Family History Brother CAD (coronary [...] MD Cosigner Signature: Date CC: ~ Signed [facility]08-14-2025 Radiology Diagnostic study note [facility] [address] [place] [address] Extremity Upper without Contra MR#: [id number] Acct: [id number] Name: MARIA E GUTHRIE Rep #: [id number] : 1950 M 74 From: Sean Garcia MD PCP: Dr. Matt Saul MD Status: REG CLI Study:Extremity Upper without Contra Date of Exam: 11/26/24 Exam# [id number] Ordering Dr: Major Yi DO PROCEDURE: EXTREMITY [...] Saul MD; Dr. Major Yi DO ~ Churn Driller: Signed [facility]03-04-2025 Radiology Diagnostic study note [facility] Imaging Services [address] [place] [address] [id number] Ankle min 3 Views MR#: [id number] Acct: [id number] Name: MARIA E GUTHRIE Rep #: [id number] : 1950 M 74 From: Shannon Joshua MD PCP: Dr. Matt Saul MD Status: REG CLI Study:Ankle min 3 Views Date of Exam: Exam# [id number] Ordering Dr: Luna Saul MD EXAM: XR [...] evaluation with CT is recommended. Reading Location[facility] CC: Dr. Matt Saul MD ~ Churn Driller: Signed [facility]03-04-2025 Radiology Diagnostic study note [facility] [address] [place], [place] [address] Foot min 3 Views MR#: [id number] Acct: [id number] Name: MARIA E GUTHRIE Rep #: [id number] : 1950 M 74 From: Laurent Alva MD PCP: Dr. Matt Saul MD Status: REG CLI Study:Foot min 3 Views Date of Exam: 08/09 Exam# [id number] Ordering Dr: Luna Saul MD PROCEDURE: FOOT [...] suggestive of gout. Calcaneal spurs. Reading Location: [id number] CC: Dr. Matt Saul MD ~ Churn Driller: Signed [facility]12-19-2024 Evaluation note* Diagnosis Onset Date Resolution Status Admit Date Essential hypertension chronic De cember 2023 2:13pm History of coronary artery stent placement August 17, 2006 chronic April 04, 2 024 2:13pm Hyperlipidemia chronic March 172023 2:13pm [facility] Work Phone: 1(775) 555-450011-11-2024 History of Present illness Narrative* Maddie Bernstein APRN.OUTSIDE SALESMAN - 02/26/2024 1:00 PM EST FOLLOW UP VISIT - ENDOSCOPY Maria E Guthrie 1950 [id number] REFERRING PHYSICIAN: Matt Saul (Rashida) [address] [facility] [address] Maria E Guthrie is a patient I [...] as needed for worsening/no improvement. Maddie Bernstein APRN.OUTSIDE SALESMAN documented [facility]24 NoteHNO ID: [id number] Author: MADDIE BERNSTEIN APRN.OUTSIDE SALESMAN Service: ? Author Type: Nurse Practitioner Type: Progress Notes Filed: 02/26/2024 13:03 Note Text: FOLLOW UP VISIT - ENDOSCOPY Maria E Guthrie 1950 [id number] REFERRING PHYSICIAN: Matt Saul (Rashida) [address] [place] [address] Maria E Guthrie is a patient I [...] as needed for worsening/no improvement. Maddie Bernstein APRN.[facility]11-04-2024 Note* Discharge Instr - Nursing - Estelle Bird RN - 02/19/2024 12:17 PM EST The patient received a copy of Colonoscopy discharge instructions that contain information for how to contact the physician who performed the procedure and when to seek medical care. [facility]11-04-2024 Miscellaneous Notes* Discharge Instr - Nursing - Estelle Bird RN - 02/19/2024 12:17 PM EST The patient received a copy of Colonoscopy discharge instructions that contain information for how to contact the physician who performed the procedure and when to seek medical care. documented in this encounterSt. [facility]11-04-2024 NoteHNO ID: [id number] Author: ESTELLE BIRD RN Service: ? Author Type: Registered Nurse Type: Nursing Progress Note Filed: 02/19/2024 12:15 Note Text: Abdomen soft non-distended. Will continue to monitor.[facility] 02-19-2024 Nurse Note* Estelle Bird RN - 02/19/2024 12:00 PM EST Abdomen soft non-distended. Will continue to monitor. [facility] Nurse Note* Estelle Bird RN - 02/19/2024 12:00 PM EST Abdomen soft non-distended. Will continue to monitor. documented in this encounterSt. [facility]11-[facility]-2024 History and physical note * Demetri [...] Last colonoscopy 06/[address] Park at [facility]. Sedation:Midazolam 5 mg IV, Fentanyl 100 [...] (FLONASE) 50 mcg/actuation nasal spray Use 1 Mousie in the nose once daily. cyanocobalamin (VITAMIN [...] entered by the nurse and reviewed by pr Nursing Notes: Francisca Spann RN 02/16/2024 2:03 [...] failure to complete the endoscopy and perforation. Mraia E had the opportunity to ask questions [...] edited and updated as necessary. Maddie Bernstein APRN.OUTSIDE SALESMAN UPDATED HISTORY AND PHYSICAL EXAMINATION SERVICE DATE: 02/19/2024 SERVICE TIME: 10:53 AM SENSITIVE EXAMINATION CONSENT: The sensitive examination was discussed with the Patient or Patient's Authorized Plant Technician/Control Room Operator. Asapplicable, any other physician, advance practice provider, medical student, or other health professional student that will be observing or involved in the sensitive examination for educational or training purposes was discussed with the Patient or Authorized Plant Technician/Control Room Operator. The Patient or Authorized Plant Technician/Control Room Operator has agreed to proceed with the sensitive [...] DATE: February 19, 2024 TIME: 10:[address] [facility]11-04[facility] History and physical note* Demetri Lord [...] Last colonoscopy 06/[address] Park at [facility]. Sedation:Midazolam 5 mg IV, Fentanyl 100 [...] (FLONASE) 50 mcg/actuation nasal spray Use 1 Mousie in the nose once daily. cyanocobalamin (VITAMIN [...] entered by the nurse and reviewed by pr Nursing Notes: Francisca Spann RN 02/16/2024 2:03 [...] discussed with the Patient or Patient's Authorized Plant Technician/Control Room Operator. Asapplicable, any other physician, advance practice provider, medical student, or other health professional student that will be observing or involved in the sensitive examination for educational or training purposes was discussed with the Patient or Authorized Plant Technician/Control Room Operator. The Patient or Authorized Plant Technician/Control Room Operator has agreed to proceed with the sensitive [...] 2024 TIME: 10:53 AM documented in this encounterSt. [facility]11-[facility]-2024 Telephone encounter Note * Telephone Encounter - Melanie Marcelino - 02/16/2024 2:34 PM EDT 02-19-2024 Colonoscopy concepción [facility] Joyytejolly prep, nurse went over instructions yudy has direct number to contact for any questions or concerns., Instructed patient to arrive at [address] [facility]-01-[facility] Miscellaneous Notes* Telephone Encounter - Melanie Marcelino - 02/16/2024 2:34 PM EDT 02-19-2024 Colonoscopy concepción ASC Joyytejolly prep, nurse went over instructions yudy has direct number to contact for any questions or concerns., Instructed patient to arrive at 1045 in ASC documented in this encounterSt. [facility]11-[facility]-2024 Nurse Note* Francisca Spann, RN - [...] N/A Last Colonoscopy: 07/10/[address] [facility] History of Present illness Narrative* Maddie Bernstein APRN.OUTSIDE SALESMAN - 02/16/2024 2:00 PM EDT HISTORY AND [...] Last colonoscopy 06/[address] Park at [facility]. Sedation:Midazolam 5 mg IV, Fentanyl 100 [...] (FLONASE) 50 mcg/actuation nasal spray Use 1 Mousie in the nose once daily. cyanocobalamin (VITAMIN [...] entered by the nurse and reviewed by pr Nursing Notes: Francisca Spann RN 02/16/2024 2:03 [...] necessary. Maddie Bernstein APRN.BALJIT documented in this encounterSt. [facility]11-01-2024 NoteHNO ID: [id number] Author: MADDIE BERNSTEIN APRN.CNP Service: ? Author [...] Last colonoscopy 06/[address] Park at [facility]. Sedation:Midazolam 5 mg IV, Fentanyl 100 [...] (FLONASE) 50 mcg/actuation nasal spray Use 1 Mousie in the nose once daily. cyanocobalamin (VITAMIN [...] entered by the nurse and reviewed by pr Nursing Notes: Francisca Spann RN 02/16/2024 2:03 [...] denies ulcers, denies vomiting, (more content not included)...[facility]11-01-2024 Nurse Note* Francisca Spann RN - [...] 07/10/2020 Francisca Spann RN documented in this encounterSt. [facility]05-02-2024 Discharge summary Author Joe Joshua [facility] August 18, 2023 12:45am Note Date/Time August 17, 2023 9:52pm [facility] Medical Records Department [address] [facility] [place] [address] Emergency Department Summary 08/17/23 MR#: [id number] Acct: [id number] Name: MARIA E GUTHRIE Rep #:[id number] : 1950 73 From: Joe Sage PCP: Dr. Matt Saul MD Status :REG ER Location: ED HPI History of Present Illness Chief Complaint: Chest Pain Informant: patient Narrative Narrative: Intermittent chest pain initially started overnight twinges in his left chest. This evening it returned having intermittent symptoms. He had 1 stent placed [id number]. Diabetes hypertension hyperlipidemia. No cardiac dysrhythmia history. On baby aspirin. No cough. He had traveled yesterday 8-hour drive and return. Noticed leg swelling no leg cramping no dyspnea. Prior Similar Symptoms: No CVD Risk Factors: Positive for Hypertension, Diabetes and Hypercholesterolemia PE Risk Factors: Positive for Recent Travel/[facility] Medical History (Updated 08/18/23 @ 00:[address] Joe Jsohua DO) Atherosclerosis of coronary artery of [place] heart without angina pectoris Chest pain Coronary [...] DAILY 02/08/22 [History Last Taken Unknown] omega 9-zyt-lvs-fish oil 300 mg-1,000 mg capsule (Fish Oil) 2 cap PO BID 02/08/22 [History Last Taken Unknown] allopurinol 300 mg tablet 300 mg PO DAILY 02/08/23 [History Last Taken Unknown] hydrochlorothiazide 25 mg tablet 25 mg PO DAILY 02/08/23 [History Last Taken Unknown] Allergy/AdvReac Type Severity Reaction Status Date / Time Eqdxiof-FCO-TfY Reductase AdvReac Mild myalgias Verified 08/17/23 21:04 Inhibitor [Sxidgni-Kbn-Uee Reductase Inhibitor] Family History Brother CAD (coronary [...] it in the room however on the pouako kura kaupapa maori did not know any rhythm changes. Cardiac [...] clinician: N/A This note was generated with [employer] dictation software. It may contain incorrectwords, spelling, [...] 38.9 L Lymph % (Auto) 49.8 H [place] % (Auto) 10.1 H Eos % (Auto) [...] mg tablet 100 mg PO DAILY omega 8-wvm-rfo-fish oil [Fish Oil] 300-1,000 mg capsule 2 [...] muscle); rotate sites Pt gets from the [place] Primary Care Provider: Matt Saul Referrals: Matt [...] your Primary Care Provider. Call [facility] ([phone]) or report to the closest Emergency Room. Call 911 if necessary. 08/18/23 0045 <Electronically signed by Joe Sage> Cosigner Signature (if applicable): CC: Dr. Matt Saul MD ~ Signed [facility] Work Phone: [phone]) 144-879705-03-2007 Evaluation note* Diagnosis Onset Date Resolution Status Essential hypertension chron ic History of coronary artery stent placement August 17 chronic Hyperlipidemia chronic [facility] Work Phone: Evaluation note* Diagnosis Onset Date Resolution Status Influenza due to influenza virus, type A, human acute [facility] Work Phone: Evaluation note* Diagnosis History of colonic polyps- Primary Personal history of colonic polyps Screen for colon cancer Special screening for malignant neoplasms, colon [facility] Diagnosis History of colonic polyps Personal history of colonic polyps Screen for colon cancer Special screening for malignant neoplasms, colon [facility]* Diagnosis History of colonic polyps- Primary Personal history of colonic polyps documented in this encounter [facility] noteNo assessment information availableWooKettering Health [facility] Work Phone: Hospital Discharge instructions Additional Instructions Cardiac workup was negative. Potassium 3.1 orally replaced. Follow-up with your doctor. If symptoms recur and worsens, return to the ED for reevaluation.[facility] Work Phone: Hospital Discharge instructionsAdditional Instructions [facility]: [facility]: Reason for referral (narrative)* Outpatient Procedure (Routine) - Authorized Specialty Diagnoses / Procedures Referred By Shauna ross Referred To Contact [facility] Diagnoses History of colonic polyps Screen for colon cancer Procedures COLONOSCOPY SCREENING COLONOSCOPY FLX DX W/COLLJ SPEC WHEN Maddie Lozada APRN.CNP [address] [place] [address] [facility] Disease [address] [address] Referral ID Status Reason Start Date Expiration Date Visits Requested Visits Authorized [id number] Authorized Auto-Generat ed Referral 02/16/2024 02/15/2025 1 1 [facility] for referral (narrative)* Outpatient Procedure (Routine) - Closed Specialty Diagnoses / Procedures Referred By Shauna ross Referred To Contact [facility] DISEASE COMBES Diagnoses History of colonic polyps Screen for colon cancer Procedures COLONOSCOPY SCREENING COLONOSCOPY FLX DX W/COLLJ SPEC WHEN Maddie Lozada APRN.CNP [address] [place] [address] [facility] Disease [place] [id number] Referral ID Status Reason Start Date Expiration Date V isits Requested Visits Authorized [id number] Closed Auto-Generate d Referral 02/16/2024 02/15/2025 1 1 [facility] for referral (narrative)No reason for referral information availableWKnox Community Hospital Work Phone: Reason for visit Narrative* Outpatient Procedure (Routine) - Closed Specialty Diagnoses / Procedures Referred By Shauna ross Referred To Contact [facility] Diagnoses History of colonic polyps Screen for colon cancer Procedures COLONOSCOPY SCREENING COLONOSCOPY FLX DX W/COLLJ SPEC WHEN Maddie Lozada, JENNIFER.OUTSIDE SALESMAN [address] [place] [address] [facility] [place] [address] Referral ID Status Reason Start Date Expiration Date V isits Requested Visits Authorized [id number] Closed Auto-Generate d Referral 02/16/2024 02/15/[address] [facility] Chief Complaint and Reason for Visit [...] Yes December 29, 2014 1:26pm Power of Brine Supervisor Yes December 1:26pm Advance Directive Response Recorded Date/ Time Name of Medical Power of Brine Supervisor darby feliciano n August 17, 2023 9:53pm Living Will Yes August 17, 2023 9: 53pm Power of Brine Supervisor Yes August 17, 2023 9:53pm Advance Directive Response Recorded Date/ Time Living Will Yes December 29, 2014 2:26pm Power of Brine Supervisor Yes December 2:26pm Advance Directive Response Recorded Date/ Time Do you have a Healthcare Power of Brine Supervisor? Yes December 23, 2024 2:44pm Summary Purpose [...] Primary Care Provider Activ e Bill Murdock DISTRIBUTING CLERK, DISTRIBUTING CLERK-C Attending Provider Active Team Status: Active Member Role Status Dates Dr. Armond Saul MD Primary Care Provider Activ e Self Referred Attending Provider Active Team Status: Inactive Member Role Status Dates Dr. Armond Saul MD Primary Care Provider Activ e Bill Murdock DISTRIBUTING CLERK, DISTRIBUTING CLERK-C Attending Provider Active Team Status: Inactive Member Role Status Dates Dr. Armond Saul MD Primary Care Provider, Refe rring Provider Active Xiomara Renee DISTRIBUTING CLERK, DISTRIBUTING CLERK-C Attending Provider Active Team Status: Active Member [...] Dr. Joe Joshua DO Emergency Provider Active Material Spreader Relationship Specialty Start Date End Date Matt Saul MD [address] [facility] [place], [place] [address] PCP - General Family Medicine 06/30/20 Material Spreader Relationship Specialty Start Date End Date Matt Saul MD [address] [facility] [address] [place], [place] [address] PCP - General Family Medicine 06/30/20 Material Spreader Relationship Specialty Start Date End Date Matt Saul MD [address] [facility] [address] [place], [place] [id number] PCP - General Family Medicine 06/30/20 Material Spreader Relationship Specialty Start Date End Date Matt Saul MD [address] [facility] [address] [place], [place] [id number] PCP - General Family Medicine 06/30/20 Team [...] or prosecute any alcohol or drug abuse patient.[facility] Hospital[facility] the event this information is protected by the Federal Confidentiality of Alcohol and Drug Abuse Patient Records regulations: The Federal rules restrict any use of the information to criminally investigate or prosecute any alcohol or drug abuse patient.[facility] HospitalIn the event this information is protected by the Federal Confidentiality of Alcohol and Drug Abuse Patient Records regulations: The Federal rules restrict any use of the information to criminally investigate or prosecute any alcohol or drug abuse patient.[facility] HospitalIn the event this information is protected by the Federal Confidentiality of Alcohol and Drug Abuse Patient Records regulations: The Federal rules restrict any use of the information to criminally investigate or prosecute any alcohol or drug abuse patient.[facility] Reason for Visit (unrecogniz ed section and content) Reason Comments Consult colonoscopy Reason Comments Follow Up Review colonoscopy r esults. Reason Comments 02-19-2024 Colonscoopy (unrecognized sect ion and content) No Status Records FoundNo Status Records Found INFORMATION SOURCE (unrecogn ized section and content) DATE CREATED AUTHOR 03/19/2024 [facility] DATE CREATED AUTHOR AUTHOR'S ORGANIZ ATION 02/28/[address] [facility] FOR RECORDS PERTAINING TO PATIENTS WHO [...] BE BASED ON THE PRIMARY CLINICAL RECORDS. [employer] provides no warranty or guarantee of the accuracy or completeness of information in this document.
== END 2025-04-06 13:40 | disposition home or self-care (01) ==
LOC: MEDOUTP 12:57 → MS3 12:58
PROVIDERS: PCP Family Medicine; Referring Provider Internal Medicine Infectious Disease; Visit Provider Internal Medicine Infectious Disease
DX: T84.59XA Infection and inflammatory reaction due to other internal joint prosthesis, initial encounter (principal)
CPT/HCPCS: 96365; A4216; J0696

== ENCOUNTER 2025-04-07 12:45 | Outpatient (CLI) | payer MEDICARE, OTHER, SELFPAY ==
[2025-04-07] MEDS: 0.9% NaCl PICC Flush IV ×2 (13:15→14:18)
[2025-04-07] MEDS: 0.9% NaCl IVPB Med Flush (100mL) 15 ML IV (13:15)
[2025-04-07] MEDS: Ceftriaxone 2 GM in 0.9% Normal Saline (50mL MB+) 50 ML IV (13:16)
[2025-04-07 13:22] VITALS: BP 127/86; PULSE 64; RESP 16; TEMP 36.3; O2SAT 96
[2025-04-07 14:22] VITALS: BP 131/82; PULSE 56; RESP 16; TEMP 36.2; O2SAT 94
== END 2025-04-07 23:59 | disposition home or self-care (01) ==
LOC: MEDOUTP 12:45
PROVIDERS: PCP Family Medicine; Referring Provider Internal Medicine Infectious Disease; Visit Provider Internal Medicine Infectious Disease
DX: T84.59XA Infection and inflammatory reaction due to other internal joint prosthesis, initial encounter (principal)
CPT/HCPCS: 96365; A4216; J0696

== ENCOUNTER 2025-04-08 08:15 | Outpatient (CLI) | payer MEDICARE, OTHER, SELFPAY ==
--- OUTSIDE RECORDS SUMMARY | 2025-04-08 08:38 | XMS RPT_ITS | CCD ---
Author Organization [facility] Care Team Providers Care Addictions Recovery Specialist Name Role Phone FERMIN Blunt, Bailey Keller Unavailable Georgette Oliva Unavailable Unavailable Georgette Tabor Unavailable Unavailable Dr. Armond Saul Primary Care Provider [phone] Dr. Armond Saul Referring Provider Dr. Nathan Purcell Attending Provider [phone] Doyle Sandoval Attending Provider [phone] Collette DIGESTER COOK, DIGESTER COOK-Luna Grant Attending Provider Dr. Armond Saul Primary Care Provider [phone] Dr. Armond Saul Referring Provider Víctor DIGESTER COOK, DIGESTER COOK-Luna Solano Attending Provider Dr. Nathan Purcell Attending Provider [phone] Nathan Purcell Referring Provider [phone] Nathan Purcell Other Provider Collette DIGESTER COOK, KHAI-Luna Grant Attending Provider Dr. Matt Saul [...] Kg LAZO, Dr. Farley Attending Provider [phone] Kg LAZO, Dr. Farley Primary Care Provider [...] MD Attending Physician Oneyda Spring Attending Physician [phone] Oneyda Spring Referring Provider [phone] Yang Romero Attending Unavailable Douglasrosie, Matt Referring Unavailable [facility] Primary Care Unavailable Spittle, Major Attending Unavailable Spittle, Major Referring Unavailable Spittle, Major Admitting Unavailable [facility] Primary Care Unavailable Kotsonis, Major F Consulting Unavailable Spittle, Major Referring Unavailable Spittle, Major Attending Unavailable [facility] Unavailable Spittle, Major Referring Unavailable Spittle, Major Attending Unavailable [facility] Care Unavailable Oneyda Solano Attending Unavailable Oneyda Solano Referring Unavailable [facility] Primary Care Unavailable Matt Saul Attending Unavailable [facility] Referring Unavailable [facility], Matt Attending Unavailable [facility] Primary Care Unavailable Spittle, Major Referring Unavailable Seven Grey Attending Unavailable [facility] Primary Care Unavailable Spittle, Major Referring Unavailable Hansel Sultana Attending Unavailable Spittle, Major Admitting Unavailable Hansel Sultana Consulting Unavailable [facility] Care Unavailable Spittle, Major Consulting Unavailable Kotsonis, Major F Consulting Unavailable Kotsonis, Major F Attending Unavailable Nathan Purcell Attending Unavailable [facility] Care Unavailable [facility] Referring Unavailable Allergies Allergy Classification Reported Allergen(s) Allergy Type Date of Onset Reaction(s) Facility (3 sources) atorvastatin drug allergy 5 myalgia [facility] Work Phone: (3 sources) simvastatin drug allergy 3 myalgias [facility] Work Phone: (3 sources) CRESTOR, PRAVACHOL drug allergy 3 myalgias [facility] Work Phone: (7 sources) Tgktwlp-Zkk-Uuv Reductase Inhibitor Propensity to adverse reactions 2 myalgias [facility] Comment on above: Lipitor, Crestor, Zo cor (5 sources) Simvastatin; Translations: [SIMVASTATIN] Drug Allergy 7 Intolerance [facility] Work Phone: (1 source) OTHER; Translations: [OTHER] Propensity to adverse reactions (disorder) 7 [facility] Repository (1 source) Xajwkyj-Xvm-Tbz Reductase Inhibitor Drug allergy (disorder) 5 [facility] Medications Current Medications Medication Drug Class(es) [...] TABS One tablet by mouth daily ASPIRIN [id number] Shruthi Fajardo RN Start: 06-11-2012 take 1 tablet by keyona th once daily at mealtime Aspirin 81 mg Tab Indications: Coronary atherosclerosis of unspecified type of vessel, barrow or graft Take 1 tablet by mouth once daily. Take with food. 06/11/2012 Active cholecalciferol 0.025 mg ora l tablet (14 sources) Vitamin D Start: 01-21-2020 take 1 tablet by keyona th once daily Start: 01-21-2020 take 2000 [IU] by mo [facility] once daily Cholecalciferol (Vitamin [...] Active docusate sodium 50 mg / sennosides, intermediate 8.6 mg oral tablet (2 sources) Start: 12-24-2024 fluticasone propionate 0.05 mg/actuat metered dose nasal spray (4 sources) Corticosteroid Start: 05-04-2023 fluticasone (FLONASE) 50 mcg/actuation nasal spray Use 1 [place] in the nose once daily. 05/04/2023 Active [...] tablet by mouth twice daily METOPROLOL TARTRATE [id number] Mari Reyes RN oxyCODONE hydrochloride 5 mg oral tablet (2 sources) Opioid Agonist Start: 12-24-2024 take 5-10 mg by mouth every four to six hours as needed for pain polyethylene glycol [id number] [id number] mg / potassium chloride 2970 mg / sodium bicarbonate 6740 mg / sodium chloride 5860 mg / sodium sulfate 93628 mg powder for oral solution (1 source) [...] One tablet by mouth daily CLOPIDOGREL BISULFATE [id number] Demetri Patrick MD Julian 9-Rky-Yok-Fish Oil (7 sources) Start: 02-08-2022 End: 04-04-2024 Julian 2-Cbf-Ipi-Fish Oil (Fish Oil) 300-1,000 mg capsule Discontinued 2 NMA PO TWICE A DAY February 08, 2022 12:00am April 04, 2024 3:20pm Start: 02-08-2022 take 300-1000 mg by mouth twice daily Julian 8-Vtt-Aec-Fish Oil (Fish Oil) 300-1,000 mg capsule Active 2 CAP PO TWICE A DAY February 08, 2022 12:00am Start: 02-08-2022 take 300-1000 mg by mouth once daily Julian 0-Uhf-Ifz-Fish Oil (Fish Oil) 300-1,000 mg capsule Active [...] by mouth daily OMEGA-3 FATTY ACIDS CAPS [id number] Demetri Patrick MD Start: 06-10-2013 End: 03-31-2015 take 1 tablet by mouth once daily FISH OIL CAPS One tablet by mouth daily OMEGA-3 FATTY ACIDS CAPS [id number] Demetri Patrick MD Start: 03-21-2013 End: 03-25-2013 take 1 capsule by mouth once daily FISH OIL CAPS One capsule by mouth daily OMEGA-3 FATTY ACIDS CAPS [id number] Demetri Patrick MD Start: 03-21-2013 take 1 capsule by mo [facility] once daily FISH OIL CAPS One capsule by mouth daily OMEGA-3 FATTY ACIDS CAPS [id number] Shruthi Fajardo RN FLUoxetine 10 mg oral capsule (6 sources) Serotonin Reuptake Inhibitor Start: 03-21-2013 End: 03-25-2013 take 1 tablet by mouth once daily PROZAC 10 MG CAPS One tablet by mouth daily FLUOXETINE HCL [id number] Demetri Patrick MD Start: 03-21-2013 End: 03-25-2013 take 1 tablet by mouth once daily PROZAC 10 MG CAPS One tablet by mouth daily FLUOXETINE HCL [id number] Demetri Patrick MD gemfibrozil 600 mg oral [...] BY PHYSICIAN FOR PROCEDURAL SEDATION ONLY, Intraprocedure Julian-3 Fatty Acids (3 sources) Start: 06-09-2013 End: 05-11-2017 take 300 mg by mouth once daily Julian-3 Fatty Acids Discontinued 300 MG PO DAILY June 09, 2013 1:00am May 11, 2017 5:09pm Start: 06-09-2013 End: 05-11-2017 take 300 mg by mouth once daily Julian-3 Fatty Acids Discontinued 300 MG PO DAILY June 09, 2013 12:00am May 11, 2017 4:09pm Julian-3 Fatty Acids 300 MG capsule (4 sources) Start: 06-09-2013 End: 05-11-2017 take 1 capsule by mouth once daily Julian-3 Fatty Acids 300 MG capsule Discontinued 300 [...] myocardial infarction; Translations: [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 [place] [address] / REHABILITATION SERVICES INITIAL EVALUATION MR#: [id number] Acct: [id number] Name: MARIA E GUTHRIE Rep #: [id number] : 1950 74 From: Cesar Holloway DPT [...] to be FAXED BACK to us at [phone] for Medicare purposes. For Medicare only, by signing this I certify the plan of care. Please let me know if there are questions or concerns regarding this plan of care. Physician Signature: Date:__ 01/07/25 1200 CC: Dr. Matt Saul MD; EDILSON Diaz CLS Signed Normal [facility] Microalb:Creat Ratio,Random URon 01-06-2025 Creatinine [Mass/Vol] 68.50 mg/dL Normal 39.00-259.00 [facility] Comment on above: Order Comment: Order Date: 01/06/25 Order Info: [id number] - MIALB Performed By: #### L 502.0250 #### [facility] [address] [place], [place], [id number] MALB:CREAT 322.6 mg/g CRE High <30 mg/g CRE [facility] Comment on above: Order Comment: Order Date: 01/06/25 Order Info: [id number] - MIALB Performed By: #### L 502.0250 #### [facility] [address] [place], [address] MICROALBUMIN,UR 221.0 mg/L Normal <20 mg/L [facility] Comment on above: Order Comment: Order Date: 01/06/25 Order Info: [id number] - MIALB Performed By: #### L 502.0250 #### [facility] [address] [place], [address] Random urine creatinine collin urement (mass/volume)Ordered By: Matt Saul on 01-06-2025 Creatinine Unsp time (U) [Mass/Vol] 68.50 mg/dL 39.00-259.00 [facility] Urine albumin measurement wi detection limit of 20 mg/L or less (mass/volume)Ordered By: Matt Saul on 01-06-2025 Albumin DL <= 20 mg/L (U) [Mass/Vol] 221.0 mg/L <20 mg/L [facility] Anion gap in Serum or Plasma Ordered By: Major Yi on 12-24-2024 Anion gap [Moles/Vol] 15 mmol/L - [facility] BUN/creatinine ratioOrdered By: Major Yi on 12-24-2024 Urea nitrogen/Creatinine [Mass ratio] 19.8 mg/mg - [facility] Basic Metabolic Profile (BMP )on 12-24-2024 BUN/CRE 19.8 RATIO Normal 02-03 [facility] Comment on above: Performed By: #### L 500.2500, L100.0500 ####[facility] [address] [place], [address] Calcium [Mass/Vol] 9.2 mg/dL Normal 7.6-11.0 [facility] Comment on above: Performed By: #### L 500.2500, L100.0500 ####[facility] [address] [place], [address] Chloride [Moles/Vol] 100 mmol/L Normal 98-108 [facility] Comment on above: Performed By: #### L 500.2500, L100.0500 ####[facility] [address] [place], [address] CO2 [Moles/Vol] 19.6 mmol/L Low 21.0-32.0 [facility] Comment on above: Performed By: #### L 500.2500, L100.0500 ####[facility] [address] [place], [address] Creatinine [Mass/Vol] 1.01 mg/dL Normal 0.70-1.20 [facility] Comment on above: Performed By: #### L 500.2500, L100.0500 ####[facility] [address] [place], [address] ECRCL 68.29 ml/min Normal 50-250 [facility] Comment on above: Performed By: #### L 500.2500, L100.0500 ####[facility] [address] [place], [address] GAP 15 Normal 5-15 [facility] Comment on above: Performed By: #### L 500.2500, L100.0500 ####[facility] [address] [place], [address] GFR/1.73 sq M.predicted among non-blacks MDRD (S/P/Bld) [Vol rate/Area] 77 mL/min/{1.73_m2} Normal >60 [facility] Comment on above: Result Comment: mL/m in/1.73m2 CKD-EPI Creatinine Equation (2020) Performed By: #### L 500.2500, L100.0500 ####[facility] [address] [place], [address] Glucose [Mass/Vol] 175 mg/dL High 70-99 [facility] Comment on above: Performed By: #### L 500.2500, L100.0500 ####[facility] [address] [place], [address] Potassium [Moles/Vol] 4.4 mmol/L Normal 3.3-5.1 [facility] Comment on above: Performed By: #### L 500.2500, L100.0500 ####[facility] [address] [place], [address] Sodium [Moles/Vol] 135 mmol/L Normal 133-145 [facility] Comment on above: Performed By: #### L 500.2500, L100.0500 ####[facility] [address] [place], [address] Urea nitrogen [Mass/Vol] 20 mg/dL High 4-19 [facility] Comment on above: Performed By: #### L 500.2500, L100.0500 ####[facility] [address] [place], [address] Bedside Glucoseon 12-24-2024 FINGERSTICK GLU 306 mg/dL High 74-106 [facility] Comment on above: Result Comment: SUSAN GEMENT OF PATIENT CARE PER NURSING PROTOCOL Performed By: #### L 501.080 #### [facility] [address] [place], [address] FINGERSTICK GLU 188 mg/dL High 74-106 [facility] Comment on above: Result Comment: SUSAN GEMENT OF PATIENT CARE PER NURSING PROTOCOL Performed By: #### L 501.080 #### [facility] [address] [place], [address] CBC-Complete Blood Cnt No Di ffon 12-24-2024 Erythrocyte distribution width (RBC) [Ratio] 13.4 % Normal 11.6-14.6 [facility] Comment on above: Performed By: #### L 500.2500, L100.0500 #### [facility] [address] [place], [address] Hematocrit (Bld) [Volume fraction] 39.7 % Low 40-54 [facility] Comment on above: Performed By: #### L 500.2500, L100.0500 #### [facility] [address] [place], [address] Hemoglobin (Bld) [Mass/Vol] 13.5 g/dL Normal 13.0-16.5 [facility] Comment on above: Performed By: #### L 500.2500, L100.0500 #### [facility] [address] [place], [address] MCH (RBC) [Entitic mass] 29.6 pg Normal 27.0-32.0 [facility] Comment on above: Performed By: #### L 500.2500, L100.0500 #### [facility] [address] [place], [address] MCHC (RBC) [Mass/Vol] 34.0 g/dL Normal 32-36 [facility] Comment on above: Performed By: #### L 500.2500, L100.0500 #### [facility] [address] [place], [address] MCV (RBC) [Entitic vol] 87.1 fL Normal 80-94 [facility] Comment on above: Performed By: #### L 500.2500, L100.0500 #### [facility] [address] [place], [address] Platelet mean volume (Bld) [Entitic vol] 11.7 fL Normal 6.2-12.0 [facility] Comment on above: Performed By: #### L 500.2500, L100.0500 #### [facility] [address] [place], [address] Platelets (Bld) [#/Vol] 174 10*3/uL Normal 150-450 [facility] Comment on above: Performed By: #### L 500.2500, L100.0500 #### [facility] [address] [place], [address] RBC (Bld) [#/Vol] 4.56 10*6/uL Low 4.6-6.2 [facility] Comment on above: Performed By: #### L 500.2500, L100.0500 #### [facility] [address] [place], [address] RDW SD 41.7 fl Normal 35.1-43.9 [facility] Comment on above: Performed By: #### L 500.2500, L100.0500 #### [facility] [address] [place], [address] WBC (Bld) [#/Vol] 10.6 10*3/uL Normal 4.4-11.0 [facility] Comment on above: Performed By: #### L 500.2500, L100.0500 #### [facility] [address] [place], [address] Carbon dioxide, total [Moles /volume] in Central venous bloodOrdered By: Major Yi on 12-24-2024 CO2 [Moles/Vol] 19.6 mmol/L Low 21.0-32.0 [facility] Chloride assayOrdered By: Yumiko Yi on 12-24-2024 Chloride [Moles/Vol] 100 mmol/L 98-108 [facility] Erythrocyte distribution wid th ratioOrdered By: Major Yi on 12-24-2024 Erythrocyte distribution width (RBC) [Ratio] 13.4 % 11.6-14.6 [facility] Erythrocyte distribution wid th standard deviationOrdered By: Major Yi on 12-24-2024 Erythrocyte distribution width (RBC) [Ratio] 41.7 fl 35.1-43.9 [facility] Glomerular filtration rate ( GFR) estimation/1.73 sq m using serum, plasma, or whole bOrdered By: Major Yi on 12-24-2024 GFR/1.73 sq M.predicted among non-blacks MDRD (S/P/Bld) [Vol rate/Area] 77 mL/min/{1.73_m2} >60 [facility] Comment on above: mL/min/1.73m2 CKD-EP I Creatinine Equation (2020) [facility]: Major Yi on 12-24-2024 Glucose [Mass/Vol] 306 mg/dL High 74-106 [facility] Comment on above: MANAGEMENT OF PATIEN T CARE PER NURSING PROTOCOL Hematocrit Auto (Bld) [Volum e fraction]Ordered By: Major Yi on 12-24-2024 Hematocrit (Bld) [Volume fraction] 39.7 % Low 40-54 [facility] Hemoglobin measurementOrdere d By: Major Yi on 12-24-2024 Hemoglobin (Bld) [Mass/Vol] 13.5 g/dL 13.0-16.5 [facility] MCV (mean corpuscular volume ) determinationOrdered By: Major Yi on 12-24-2024 MCV (RBC) [Entitic vol] 87.1 fL 80-94 [facility] Mean corpuscular hemoglobin (MCH) determinationOrdered By: Major Yi on 12-24-2024 MCH (RBC) [Entitic mass] 29.6 pg 27.0-32.0 [facility] Mean corpuscular hemoglobin concentration (MCHC) determinationOrdered By: Major Yi on 12-24-2024 MCHC (RBC) [Mass/Vol] 34.0 g/dL 32-36 [facility] Mean platelet volume determi nationOrdered By: Major Yi on 12-24-2024 Platelet mean volume (Bld) [Entitic vol] 11.7 fL 6.2-12.0 [facility] Platelet countOrdered By: Yumiko Yi on 12-24-2024 Platelets (Bld) [#/Vol] 174 10*3/uL 150-450 [facility] Potassium measurement (mass/ volume)Ordered By: Major Yi on 12-24-2024 Potassium (Unsp spec) [Mass/Vol] 4.4 mmol/L 3.3-5.1 [facility] RBC Auto (Bld) [#/Vol]Ordere d By: Major Yi on 12-24-2024 RBC (Bld) [#/Vol] 4.56 10*6/uL Low 4.6-6.2 [facility] Serum creatinine measurement (mass/volume)Ordered By: Major Yi on 12-24-2024 Creatinine [Mass/Vol] 1.01 mg/dL 0.70-1.20 [facility] Serum glucose measurement (m ass/volume)Ordered By: Major Yi on 12-24-2024 Glucose [Mass/Vol] 175 mg/dL High 70-99 [facility] Serum or plasma calcium collin urement (mass/volume)Ordered By: Major Yi on 12-24-2024 Calcium [Mass/Vol] 9.2 mg/dL 7.6-11.0 [facility] Serum or plasma urea nitroge n measurement (mass/volume)Ordered By: Major Yi on 12-24-2024 Urea nitrogen [Mass/Vol] 20 mg/dL High 4-19 [facility] Sodium levelOrdered By: Moshe Yi on 12-24-2024 Sodium [Moles/Vol] 135 mmol/L 133-145 [facility] White blood cell (WBC) count Ordered By: Major Yi on 12-24-2024 WBC (Bld) [#/Vol] 10.6 10*3/uL 4.4-11.0 [facility] Bedside Glucoseon 12-23-2024 FINGERSTICK GLU 272 mg/dL High 74-106 [facility] Comment on above: Result Comment: SUSAN GEMENT OF PATIENT CARE PER NURSING PROTOCOL Performed By: #### L 501.080 ####[facility] [address] [facility] [place], [address] FINGERSTICK GLU 166 mg/dL High 74-106 [facility] Comment on above: Result Comment: SUSAN GEMENT OF PATIENT CARE PER NURSING PROTOCOL Performed By: #### L 501.080 ####[facility] [address] [place], [address] FINGERSTICK GLU 195 mg/dL High [facility] Comment on above: Result Comment: SUSAN GEMENT OF PATIENT CARE PER NURSING PROTOCOL Performed By: #### L 501.080 #### [facility] [address] [place], [address] Consultation - Hospitaliston 12-23-2024 Consultation - Hospitalist [facility] Medical Records Department [address] [place] [address] Consultation - Hospitalist 12/23/24 1608 MR#: [id number] Acct: [id number] Name: MARIA E GUTHRIE Rep #: [id number] : 1950 74 From: Hansel Sultana DO PCP: Dr. Matt Saul MD Status:ADM BAR Location: [place] [address] Assessment Plan Assessment/Plan (1) Right rotator cuff tear arthropathy: PLAN: Plan Patient is a 74-year-old male who presented to [facility] on 12/23/2024 for planned right shoulder procedure. [...] is a 74 M who presented to [facility] on 12/23/2024 for planned orthopedic procedure. Medicine [...] No other acute concerns at this time. 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 [facility] MR/POSTOP.ANEon 12-23-2024 MR/POSTOP.[facility] Medical Records Department [address] [place] [address] Anesthesia Postop Eval I 12/23/24 1332 MR#: [id number] Acct: [id number] Name: MARAI E GUTHRIE Rep #: [id number] : 1950 74 From: Priscilla Willard CRNA PCP: Dr. Matt Saul MD Status:REG [facility] Y Race: C Location: [place] [address] Anesthesia: Postop Eval I Current Vital Signs Temperature: 97 F Pulse Rate: 89 Blood Pressure: 145/87 Respiratory Rate: 18 Pulse Ox: 93 Assessment Airway patent: Yes Spontaneous unlabored respirations: Yes nausea: No Vomiting: No Anesthesia Complication: No Fluid Hydration Crystalloid volume administer (ml): 1,300 Total IV fluid infused: 1,300 Progress Note Anesthesia document: Postop Eval 1 completed: Yes 12/23/241332 Date Priscilla Willard DEMOLITION HAMMER OPERATOR Cosigner Signature: Date CC: Signed [facility] MR/NFMKCJGB2in 12-23-2024 MR/POSTOPAN2 [facility] Medical Records Department [address] [place] [address] Anesthesia Postop Eval II 12/23/24 1433 MR#: [id number] Acct: [id number] Name: MARIA E GUTHRIE Rep #: [id number] : 1950 74 From: Osei Lubin MD PCP: Dr. Matt Saul MD Status:ADM BAR Y Race: C [facility] Anesthesia Postop Eval I Sum Postop Eval Completion status Anesthesia document: Postop Eval 1 completed: Yes Anesthesia Postop Eval I Summary Anesthesia Postop Eval I Summary: Anesthesia Postop Eval I: Assessment Summary Airway patent Yes 12/23/24 13:32 DEMOLITION HAMMER OPERATOR.CSIR Spontaneous unlabored Yes 12/23/24 13:32 DEMOLITION HAMMER OPERATOR.CSIR respirations Mental status nausea No 12/23/24 13:32 DEMOLITION HAMMER OPERATOR.CSIR Vomiting No 12/23/24 13:32 DEMOLITION HAMMER OPERATOR.CSIR Anesthesia Postop Eval I: Fluid Summary Crystalloid volume administer 1,300 12/23/24 13:32 DEMOLITION HAMMER OPERATOR.CSIR (ml) Colloids volume administered ( ml) Blood Product volume administered (ml) Total IV fluid infused 1,300 12/23/24 13:32 DEMOLITION HAMMER OPERATOR.CSIR Anesthesia Postop Eval I: Summary Notes Anesthesia Complication No 12/23/24 13:32 DEMOLITION HAMMER OPERATOR.CSIR Anesthesia Complication Comment: Post-operative progress note Anesthesia: Postop Eval II Evaluation Mental status: Awake and Calm Pain Level: 1 nausea: No Vomiting: No Complications Anesthesia Complication: No 12/23/24 1433 Date Osei Lubin MD Cosigner Signature: Date CC: Signed Normal [facility] Magnesiumon 12-23-2024 Magnesium [Mass/Vol] 1.8 mg/dL Normal 1.5-2.2 [facility] Comment on above: Performed By: #### L 501.5200 #### [facility] [place], [address] Magnesium measurement (mass/ volume)Ordered By: Faheem Barroso on 12-23-2024 Magnesium (Unsp spec) [Mass/Vol] 1.8 mg/dL 1.5-2.2 [facility] Operative Reporton Operative Report [facility] Medical Records Department [address] [place] [address] Operative Report 12/23/24 1322 MR#: [id number] Acct: [id number] Name: MARIA E GUTHRIE Rep #: [id number] : 1950 74 From: Major Yi DO PCP: Dr. Matt Saul MD Status:[facility] Location: [place] [address] Operative Report (Standard) Operative Information Date of Procedure: 12/23/24 Pre-Operative Diagnosis: Right shoulder rotator cuff tear arthropathy Post-Operative Diagnosis: Right shoulder rotator cuff tear arthropathy Surgery/Procedure Performed: Right reverse total shoulder arthroplasty health worker: Yes Pedal Assembler: Oneyda Solano Tasks completed by store assistant: Opening closing, Implanting device, Hemostasis: Electrocautery [...] No Description of surgery: Patient arrived to [facility] morning of the procedure and was greeted [...] positioned in the beachchair position. A well-padded heading machine operator was applied. The nonoperative extremity was placed [...] cartilaginous carla (more content not included)... Normal [facility] Shoulder min 2 Viewson 12-23 Shoulder min 2 Views [facility] Imaging Services [address] [place] [address] Shoulder min 2 Views MR#: [id number] Acct: [id number] Name: MARIA E GUTHRIE Rep #: [id number] : 1950 M 74 From: Seven Suárez MD PCP: Dr. Matt Saul MD Status: [facility] Study: Shoulder min 2 Views Date of Exam: 12/23/24 Exam# [id number] Ordering Dr: Major Yi DO PROCEDURE: SHOULDER [...] IMPRESSION: Right shoulder reverse arthroplasty. Reading Location: [place] [address] CC: Dr. Matt Saul MD; Dr. Major Yi DO Core Shaper Top: Signed [facility] MR/PAT.ANEon 12-04-2024 MR/PAT.ANE [facility] Medical Records Department [address] [facility] [place] [address] PAT - Anesthesia 12/04/241946 MR#: [id number] Acct: [id number] Name: MARIA E GUTHRIE Rep #: [id number] : 1950 74 From: Faheem Barroso MD PCP: Dr. 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: Anesthesia History - filter plant operator Hx Hospitalization No 12/03/24 10:59 Any [...] take am of surgery PONV PONV - filter plant operator: PONV - filter plant operator Female No 12/03/24 10:59 HX of [...] 04/04/24 14:18 Respiratory Assessment Respiratory Assessment - filter plant operator: Respiratory Tract Infection Hx - filter plant operator Hx Respiratory Tract Infection No 12/03/24 10:59 STOP Sleep Apnea STOP Sleep Apnea - filter plant operator: STOP Sleep Apnea - filter plant operator Hx Hypertension Yes: CONTROLLED WITH MED [...] Tobacco Use History Tobacco Use History - filter plant operator: Tobacco Use History - filter plant operator Tobacco Use Smoking Status Never smoker 12/03/24 10:59 Hx Tobacco Use No 12/03/24 10:59 Years Smoking Packs Smoked per Day Smoking Cessation Date was within the last 15 years Hx Smoking Cessation Date Hx Smoking Cessation Counseling Hematologic Medial History Hematologic Hx - filter plant operator: 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 Normal [facility] 12 Lead EKGon 11-27-2024 12 Lead EKG [facility] Cardiovascular Services [address] [place] [address] 12 Lead EKG 11/27/24 0654 MR#: [id number] Acct: [id number] Name: MARIA E GUTHRIE W Rep #: [id number] : 1950 74 From: Seven Grey MD [...] Borderline ECG Confirmed by Seven Grey ([id number]), fashion editor KARINA GIVENS ([id number]) on 11/27/2024 9:43:00 AM Referred By: Major Yi Confirmed By: Seven Grey 11/27/24 0943 Date Seven Grey MD CC: Dr. Matt Saul MD; Dr. Major Yi DO Signed Normal [facility] Electrocardiogram reportOrde red By: Seven Grey on 11-27-2024 EKG study [facility] Cardiovascular Services [address] [place] [address] 12 Lead EKG 11/27/24 0654 MR#: [id number] Acct: [id number] Name: MARIA E GUTHRIE Rep #:[id number] : 1950 74 From: Seven alcantara MD [...] block Borderline ECG Confirmed by Seven Grey ([id number]), fashion editor KARINA GIVENS ([id number]) on 59:43:00 AM Referred By: Major Yi Confirmed By: Seven Grey 11/27/24 0943 Date _ Seven Grey MD CC: Dr. Matt Saul MD; Dr. Major Yi DO ~ Signed [facility] Work Phone: Extremity Upper without Cont raon 11-26-2024 Extremity Upper without Contra [facility] Imaging Services [address] [place] [address] Extremity Upper without Contra MR#: [id number] Acct: [id number] Name: MARIA E GUTHRIE Rep #: [id number] : 1950 M 74 From: Gonzalez Garcia MD PCP: Dr. Matt Saul MD Status: REG CLI Study: Extremity Upper without Contra Date of Exam: 0 11/26/24 Exam# [id number] Ordering Dr: Major Yi DO PROCEDURE: EXTREMITY [...] Matt Saul MD; Dr. Major Yi DO Core Shaper Top: Signed Normal [facility] Urgent Care Visit Reporton 0 07-09-2024 Urgent Care Visit Report [facility] [address], [address] [place] [address] OFFICE VISIT Date of Service: 07/09/24 MR#: [id number] Acct: [id number] Name: MARIA E GUTHRIE Rep #: [id number] : 1950 Provider: EDILSON Salinas Age/Sex: 74/M Location: [facility] [place] [place] Status: Signed Intake Vital Signs 04/04/24 14:18 [...] Reasons: RASH ON BACK Chief Complaint: rash Technical Supervisor Required: No Is patient in pain?: Yes Allergies Oxznxyq-KVL-WqE Reductase Inhibitor (Tncuhqm-Gbi-Ewn Reductase Inhibitor) Adverse Reaction (Mild, Verified 07/09/24 17:33) myalgias Have you fallen in the past year?: No Nurse's Note: rash to left upper buttock/low back x 3-4 days with burning. 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 No mdws-onn-etrzjkf products taken to assist. No other associated symptoms and no other alleviating/aggravatin g factors. ROS Const Constitutional: No other (As above) Exam Const General: cooperative, healthy appearing and no acute distress Nutritional Appearance: average body habitus Orientation: alert and awake HENDE Head: normal to inspection Ears: hearing grossly [...] Rodríguez Signature: Date (if applicable) CC: Normal [facility] Ankle min 3 Viewson 06-19-19 25 Ankle min 3 Views [facility] Imaging Services [address] [place] [id number] Ankle min 3 Views MR#: [id number] Acct: [id number] Name: MARIA E GUTHRIE Rep #: [id number] : 1950 M 74 From: Tenzin Joshua MD PCP: Dr. Matt Saul MD Status: REG CLI Study: Ankle min 3 Views Date of Exam: 06/18/24 Exam# [id number] Ordering Dr: Matt Saul EXAM: XR Right [...] evaluation with CT is recommended. Reading [facility] CC: Dr. Matt Saul MD Core Shaper Top: Signed Normal [facility] Foot min 3 Viewson Foot min 3 Views [facility] Imaging Services [address] [place], [place] [id number] Foot min 3 Views MR#: [id number] Acct: [id number] Name: MARIA E GUTHRIE Rep #: [id number] : 1950 M 74 From: Pako de leon MD PCP: Dr. Matt Saul MD Status: REG CLI Study: Foot min 3 Views Date of Exam: 06/18/24 Exam# [id number] Ordering Dr: Matt Saul PROCEDURE: FOOT MIN [...] suggestive of gout. Calcaneal spurs. Reading Location: [id number] CC: Dr. Matt Saul MD Core Shaper Top: Signed Normal [facility] Cardiology Visit Reporton Cardiology Visit Report [facility] [address] [place], [place] [address] OFFICE VISIT Date of Service: 04/04/24 MR#: [id number] Acct: [id number] Name: MARIA E GUTHRIE Rep #: [id number] : 1950 Provider: Dr. Nathan Purcell MD Age/Sex: 73/M Location: [facility] Status: Signed HPI HPI History of [...] has been put on Praluent by the [facility]. From a cardiac standpoint, the patient is [...] Monitor Intake Visit Reasons: 1 Y FU Technical Supervisor Required: No Accompanied by: Self Is patient in pain?: No Allergies Gxbffmy-NQN-WgF Reductase Inhibitor (Jzdwrnx-Hip-Cyy Reductase Inhibitor) Adverse Reaction (Mild, Verified 04/04/24 [...] Osteoarthritis Gout Atherosclerosis of coronary artery of barrow heart without angina pectoris PTSD (post-traumatic stress [...] no acu (more content not included)... Normal [facility] CNOVon 02-26-2024 CN Office Visit (GENSWS ) MARIA E GUTHRIE ([id number]) 1950 Date Time Provider Department 02/26/24 1:00 PM MADDIE BERNSTEIN GENS During your visit today, we recorded the following information about you: Maddie Bernstein APRN.CNP 02/26/2024 1:03 PM Signed FOLLOW UP VISIT - ENDOSCOPY Maria E John Maksim 1950 [id number] REFERRING PHYSICIAN: Matt Saul ([facility]) [address] [place] [address] Maria E Guthire is a patient I am following for [...] Maddie Bernstein APRN.BALJIT Referring Provider: MATT SAUL [[id number]] Allergies As of Date: 02/26/2024 Noted Allergy Reaction ZOCOR (SIMVASTATIN) 08/15/2006 5 - Intolerance Comments: myalgias Date Reviewed: 02/26/2024 Reviewed by: Maddie Bernstein APRN.SCIENTIFIC DATABASE CURATOR - Fully Assessed Reason for Visit: Follow Up [171] Cmt: Review colonoscopy results. Primary Visit Diagnosis:History of colonic polyps [Z86.0100] Prescriptions as of 02/26/2024 - alirocumab (PRALUENT) 150 mg/mL pen Inject 150 mg subcutaneously. - losartan (COZAAR) 100 mg tablet Take 100 mg by mouth. - fluticasone (FLONASE) 50 mcg/actuation nasal spray Use 1 [place] in the nose once daily. - cyanocobalamin [...] Status:Closed by MADDIE BERNSTEIN on 02/26/24 Normal [facility] [id number] 02-19-2024 [id number] HNO ID: [id number] Author: ESTELLE BIRD RN Service: ? Author Type: Registered Nurse Type: [id number] Filed: 02/19/2024 12:17 Note Text: The patient received a copy of Colonoscopy discharge instructions that contain information for how to contact the physician who performed the procedure and when to seek medical care. Normal [facility] Colonoscopyon 02-19-2024 [facility] Patient Name: Maria E [...] previous diet. Procedure Code(s): --- Professional --- 37913, Colonoscopy, flexible; with biopsy, single or multiple G0500, Moderate sedation services provided by the same physician or other qualified health child care specialist performing a gastrointestinal endoscopic service that sedation supports, requiring the presence of an independent trained observer to assist in the monitoring of the patient's level of consciousness and physiological status; initial 15 minutes of intra-service time; patient age 5 years or older (additional time may be reported with 80171, as appropriate) Diagnosis Code(s): --- Professional --- Z12.11, Encounter for screening for malignant neoplasm of colon Z86.010, Personal history of colonic polyps K64.8, Other hemorrhoids D12.5, Benign neoplasm of sigmoid colon CPT copyright 2020 [employer]. All rights reserved. The codes documented in this report are preliminary and upon relay motorman review may be revised to meet current compliance requirements. Attending Participation: I personally performed the entire procedure. Scope In: 11:39:45 AM Scope Out: 11:54:37 AM MD Demetri Sainz MD 02/19/2024 12:01:02 PM This report has been signed electronically by Demetri Lord MD Number of Addenda: 0 Note Initiated On: 02/19/2024 11:28 AM Estimated Blood Loss: Estimated blood loss was minimal. Normal [facility] Colonoscopy Study observatio non 02-19-2024 [facility] Gastrointestinal Endoscopy Patient Name: Maria E Guthrie [...] previous diet. Procedure Code(s): --- Professional --- 01640, Colonoscopy, flexible; with biopsy, single or multiple G0500, Moderate sedation services provided by the same physician or other qualified health child care specialist performing a gastrointestinal endoscopic service that sedation sup (more content not included)... [facility] Radiology Study observation (narrative) [facility] HISTORY PHYSICALon HISTORY PHYSICAL HNO ID: [id number] Author: DEMETRI LORD MD Service: General Surgery [...] Last colonoscopy 06/[address] Park at [facility]. Sedation:Midazolam 5 mg IV, Fentanyl 100 micrograms [...] (FLONASE) 50 mcg/actuation nasal spray Use 1 [place] in the nose once daily. cyanocobalamin (VITAMIN [...] entered by the nurse and reviewed by nc Nursing Notes: Francisca Spann RN 02/16/2024 2:03 [...] The pa (more content not included)... Normal [facility] SURGICAL PATHOLOGYon 024 CASE REPORT Normal [facility] Comment on above: Order Comment: Speci men Type: TISSUE SPECIMEN Ordering Facility: [facility] Address: [address] [place] [address] Result Comment: Surg ical Pathology Report Case: [id number] Authorizing Provider: Demetri Lord MD Collected: 02/19/2024 11:51 AM Ordering Location: Ambulatory Surgery Received: 02/19/2024 12:46 PM Pathologist: Tracie Hwang MD Specimen: Colon, Sigmoid, Polyp Performed By: #### S #### [facility] CLIA [id number] [address] [place] [address] [place] FINAL DIAGNOSIS Normal [facility] Comment on above: Order Comment: Speci men Type: TISSUE SPECIMEN Ordering Facility: [facility] Address: [address] [place] [address] Result Comment: A. C olon, sigmoid, polyp, polypectomy -Tubular adenoma Performed By: #### S #### [facility] CLIA [id number] [address] [place] [address] [place] FINAL PERFORMING LAB Normal [facility] Comment on above: Order Comment: Speci men Type: TISSUE SPECIMEN Ordering Facility: [facility] Address: [address] [place] [address] Result Comment: Diag nostic interpretation performed at [facility], [address] [place] [address] CLIA# [id number] Project Development Director: Karel Singer M.D. Performed By: #### S #### [facility] CLIA [id number] [address] [place] [address] [place] GROSS DESCRIPTION Normal [facility] Comment on above: Order Comment: Speci men Type: TISSUE SPECIMEN Ordering Facility: [facility] Address: [address] [place] [address] Result Comment: A. Luna olon, Sigmoid, Polyp Received in formalin is one piece of simon, soft tissue measuring 0.4 x 0.3 x 0.2 cm. Totally submitted in one cassette. KDK February 19, 2024 7:33 PM Gross examination performed at [facility], [address] [place] [address] Performed By: #### S #### [facility] CLIA [id number] [address] [place] [address] [id number] CNOVon 02-16-2024 CNOV Office Visit (GENSWS ) MARIA E GUTHRIE ([id number]) 1950 Date Time Provider Department 02/16/24 2:00 [...] Last colonoscopy 06/[address] Park at [facility]. Sedation:Midazolam 5 mg IV, Fentanyl 100 micrograms [...] (FLONASE) 50 mcg/actuation nasal spray Use 1 [place] in the nose once daily. cyanocobalamin (VITAMIN [...] entered by the nurse and reviewed by nc Nursing Notes: Francisca Spann RN 02/16/2024 2:03 [...] stent. Respir (more content not included)... Normal [facility] E GUTHRIE ([id number]) 1950 M Date Time Provider Department 02/16/24 MOLLY BERNSTEIN During your visit today, we recorded the following information about you: Melanie Marcelino 02/16/2024 2:37 PM Signed 02-19-2024 Colonoscopy concepción EFREN Cook prep, nurse went over instructions yudy has direct number to contact for any questions or concerns., Instructed patient to arrive at 1045 in [facility] Allergies As of Date: 02/16/2024 Noted Allergy Reaction ZOCOR (SIMVASTATIN) 08/15/2006 5 - Intolerance Comments: myalgias Date Reviewed: 02/16/2024 Reviewed by: Maddie Bernstein APRN.SCIENTIFIC DATABASE CURATOR - Fully Assessed Reason for Visit: 02-19-2024 Colonscoopy [Other] Prescriptions as of 03/18/2024 - alirocumab (PRALUENT) 150 mg/mL pen Inject 150 mg subcutaneously. - losartan (COZAAR) 100 mg tablet Take 100 mg by mouth. - fluticasone (FLONASE) 50 mcg/actuation nasal spray Use 1 [place] in the nose once daily. - cyanocobalamin [...] Encounter Status:Closed by MELANIE MARCELINO on 03/18/24 [facility] No Panel InformationOrdered By: Joe Joshua on 08-18-2023 Troponin I High Sensitivity 9 pg/mL 3.0-78.0 [facility] Comment on above: Please Note: New [place] t Units and Gender Specific Reference Ranges. For more information see Policy Stat Procedure [place] High Sensitivity Troponin (TNIH) and attachments. Absolute lymphocyte countOrd ered By: Joe Joshua on 08-17-2023 Lymphocytes Auto (Unsp spec) [#/Vol] 2.02 10*3/uL 0.83-4.51 [facility] Automated lymphocyte count a s percentage of total leukocytesOrdered By: Joe Joshua on 08-17-2023 Lymphocytes/100 WBC Auto (Unsp spec) 49.8 % 19-41 [facility] Basophil percentageOrdered B y: Joe Joshua on 08-17-2023 Basophils/100 WBC (Bld) 0.5 % 0-1 [facility] Chloride [Moles/Vol] 101 mmol/L 98-107 [facility] Eosinophils/100 WBC (Bld) 0.7 % 0-5 [facility] Glucose [Mass/Vol] 195 mg/dL 74-106 [facility] Comment on above: Fasting Glucose resu lt greater than or equal to 126 mg/dL suggests DIABETES MELLITUS per A.D.A. criteria. Hemoglobin (Bld) [Mass/Vol] 15.4 g/dL 13.0-16.5 [facility] Monocytes/100 WBC (Bld) 10.1 % 0-10 [facility] Neutrophils (Bld) [#/Vol] 1.6 10*3/uL 2.0-7.7 [facility] Neutrophils/100 WBC (Bld) 38.9 % 47-70 [facility] Potassium [Moles/Vol] 3.1 mmol/L 3.5-5.1 [facility] Sodium [Moles/Vol] 135 mmol/L 136-145 [facility] WBC (Bld) [#/Vol] 4.1 10*3/uL 4.4-11.0 [facility] Determination of erythrocyte mean corpuscular volume (MCV)Ordered By: Joe Joshua on 08-17-2023 MCV (RBC) [Entitic vol] 87.0 fL 80-94 [facility] Erythrocyte distribution wid th ratioOrdered By: Joe Joshua on 08-17-2023 Erythrocyte distribution width (RBC) [Ratio] 13.0 % 11.6-14.6 [facility] Erythrocyte distribution wid th standard deviationOrdered By: Joe Joshua on 08-17-2023 Erythrocyte distribution width (RBC) [Entitic vol] 40.8 fL 35.1-43.9 [facility] Hematocrit Auto (Bld) [Volum e fraction]Ordered By: Joe Joshua on 08-17-2023 Hematocrit (Bld) [Volume fraction] 45.4 % 40-54 [facility] Immature granulocytes/100 WB C Auto (Bld)Ordered By: Joe Joshua on 08-17-2023 Immature granulocytes/100 WBC (Bld) 0.000 % 0.0-0.9 [facility] Comment on above: IG% - Immature Granu locytes (promyelocytes, myelocytes and metamyelocytes) > 1% indicates that a LEFT SHIFT is Present. Laboratory - Chemistry and C hemistry - challengeOrdered By: Joe Joshua on 08-17-2023 CO2 [Moles/Vol] 29.0 mmol/L 21.0-32.0 [facility] Urea nitrogen/Creatinine [Mass ratio] 18.5 mg/mg 10-20 [facility] Laboratory - Hematology and Cell countsOrdered By: Joe Joshua on 08-17-2023 MCH (RBC) [Entitic mass] 29.5 pg 27.0-32.0 [facility] MCHC (RBC) [Mass/Vol] 33.9 g/dL 32-36 [facility] Nucleated RBC/100 WBC (Bld) [Ratio] 0 % 0-5 [facility] Platelet mean volume (Bld) [Entitic vol] 10.7 fL 6.2-12.0 [facility] Platelets (Bld) [#/Vol] 147 10*3/uL 150-450 [facility] No Panel InformationOrdered By: Joe Joshua on 08-17-2023 D-Dimer Quantitative (PE/DVT) 0.44 FEU/ug/m 0.27-0.49 [facility] Comment on above: NORMAL D-Dimer level (<0.50) indicates no DVT or PE. Estimated Creatinine Clearance Calc 72.22 ml/min [facility] Estimated GFR (MDRD) Amer 97 mL/min >60 [facility] Comment on above: GFR Calc Estimated GFR (MDRD) Non-Af Amer 80 mL/min >60 [facility] Comment on above: Non- GFR Calc RBC Auto (Bld) [#/Vol]Ordere d By: Joe Joshua on 08-17-2023 RBC (Bld) [#/Vol] 5.22 10*6/uL 4.6-6.2 [facility] Serum or plasma calcium collin urement (mass/volume)Ordered By: Joe Joshua on 08-17-2023 Calcium [Mass/Vol] 9.4 mg/dL 8.5-10.1 [facility] Serum or plasma creatinine m easurement (mass/volume)Ordered By: Joe Joshua on 08-17-2023 Creatinine [Mass/Vol] 0.97 mg/dL 0.70-1.30 [facility] Comment on above: The validity of the calculated GFR & GFRAA in patients over 70 years has not been determined. Clinical correlation is essential. Serum or plasma urea nitroge n measurement (mass/volume)Ordered By: Joe Joshua on 08-17-2023 Urea nitrogen [Mass/Vol] 18 mg/dL 7-18 [facility] Thin prep Papanicolaou smear with manual screeningOrdered By: Joe Joshua on 08-17-2023 Thin prep Papanicolaou smear with manual screening 5 5-15 [facility] No Panel Informationon 05-17 Influenza Types A,B Rapid (Clinic) Pos FLU A &Neg FLU B [facility] Office Visiton 11-08-2016 Fall risk assessment No [facility] Work Phone: [phone] Protein mass conc Done [facility] Work Phone: [phone] Chart Maintenanceon 11-07-19 17 Left ventricular Ejection fraction 75 % [facility] Work Phone: Office Visiton 03-29-2016 Dietary management education, guidance, and counseling (procedure) yes Invalid Interpretation Code [facility] Work Phone: [phone] Documentation of current medications (procedure) Done Invalid Interpretation Code [facility] Work Phone: [phone] Tobacco smoking status NHIS Never smoker [facility] Work Phone: [phone] Tobacco use CPHS Never smoker Invalid Interpretation Code [facility] Work Phone: [phone] Clinical Lists Update: Prelo television service engineer 12-22-2015 Alanine aminotransferase (ALT) 45 U/L [facility] Work Phone: [phone] Albumin 4.1 g/dL [facility] Work Phone: [phone] Alkaline phosphatase (ALP) 51 U/L Invalid Interpretation Code [facility] Work Phone: [phone] ALP enzyme act/vol (Bld) 51 U/L [facility] Work Phone: [phone] Anion gap 16 mmol/L Invalid Interpretation Code [facility] Work Phone: [phone] Anion gap molar conc 16 mmol/L [facility] Work Phone: [phone] Aspartate aminotransferase (AST) 40 U/L [facility] Work Phone: [phone] Bilirubin (total) 0.5 mg/dL [facility] Work Phone: [phone] Calcium 8.9 mg/dL [facility] Work Phone: [phone] Chloride 109 mmol/L High [facility] Work Phone: [phone] Cholesterol 202 mg/dL High [facility] Work Phone: [phone] CO2 19 mmol/L Low [facility] Work Phone: [phone] CO2 ppres (BldV) 19 mmol/L Low [facility] Work Phone: [phone] Creatinine 1.0 mg/dL [facility] Work Phone: [phone] Erythrocyte distribution width Ratio (RBC) 13.6 % [facility] Work Phone: [phone] Erythrocytes (RBC) 5.69 10*6/uL Invalid Interpretation Code [facility] Work Phone: [phone] Glucose 117 mg/dL Invalid Interpretation Code [facility] Work Phone: [phone] Glucose mass conc 117 mg/dL [facility] Work Phone: [phone] HbA1c 6.5 % High [facility] Work Phone: [phone] HDL Cholesterol 45 mg/dL [facility] Work Phone: [phone] Hematocrit (HCT) 49.1 % Invalid Interpretation Code [facility] Work Phone: [phone] Hematocrit Volume Fraction (Bld) 49.1 % [facility] Work Phone: [phone] Hemoglobin (HGB) 16.6 g/dL [facility] Work Phone: [phone] LDL Cholesterol 130 mg/dL High [facility] Work Phone: [phone] Magnesium 2.3 mg/dL [facility] Work Phone: [phone] MCH 29.2 pg Invalid Interpretation Code [facility] Work Phone: [phone] MCH Entitic mass (RBC) 29.2 pg [facility] Work Phone: [phone] MCHC 33.8 g/dL Invalid Interpretation Code [facility] Work Phone: [phone] MCHC mass conc (RBC) 33.8 g/dL [facility] Work Phone: [phone] MCV 86.3 fL Invalid Interpretation Code [facility] Work Phone: [phone] MCV Entitic volume (RBC) 86.3 fL [facility] Work Phone: [phone] Platelets 245 10*3/mm3 Invalid Interpretation Code [facility] Work Phone: [phone] Platelets #/vol (Bld) 245 10*3/mm3 [facility] Work Phone: [phone] Potassium 3.9 mmol/L [facility] Work Phone: [phone] Protein 7.3 g/dL [facility] Work Phone: [phone] RBC #/vol (Bld) 5.69 10*6/uL [facility] Work Phone: [phone] RDW-CA 13.6 % Invalid Interpretation Code [facility] Work Phone: [phone] Sodium 140 mmol/L [facility] Work Phone: [phone] Thyroid stimulating hormone (TSH) 1.23 u[iU]/mL [facility] Work Phone: [phone] Thyroxine (T4) free 1.05 ng/dL [facility] Work Phone: [phone] Triglyceride 272 mg/dL High [facility] Work Phone: [phone] Urea nitrogen 19 mg/dL [facility] Work Phone: [phone] WBC #/vol (Bld) 4.84 10*3/uL [facility] Work Phone: [phone] WBC (Leukocytes) 4.84 10*3/uL Invalid Interpretation Code [employer] [facility] Work Phone: [phone] Lab Report: Lipid Profileon 04-08-2015 very low density lipoproteins 35 mg/dL 5-40 [employer] [facility] Work Phone: [phone] Lab Report: Liver Profileon 04-08-2015 Bilirubin (direct) 0.12 mg/dL 0.00-0.30 [employer] [facility] Work Phone: [phone] Globulin 3.2 g/dL Invalid Interpretation Code 2.3-3.5 [employer] [facility] Work Phone: [phone] Globulin mass conc (S) 3.2 g/dL 2.3-3.5 [facility] Work Phone: [phone] Clinical Lists Update: Prelo television service engineer 04-02-2014 Globulin 3.0 g/dL Invalid Interpretation Code [employer] [facility] Work Phone: [phone] Globulin mass conc (S) 3.0 g/dL [facility] Work Phone: [phone] External Other: Preferred Me thod of Contacton 04-02-2014 methcontact secmsg [employer] [facility] Work Phone: [phone] Patient's prefered method of contact secmsg Invalid Interpretation Code [employer] [facility] Work Phone: [phone] Lab Report: Liver Profileon 04-02-2014 ALK P 49 U/L Critically low 50-136 [employer] [facility] Work Phone: [phone] GE use only - for [employer] import when terms are not otherwise specified 49 U/L Critically low 50-136 [employer] [facility] Work Phone: [phone] Office Visiton 03-31-2014 cardiac risk group C [employer] [facility] Work Phone: [phone] General cardiovascular disease 10Y risk [#] [place] Work Phone: Vital Signs Date Time Vital Sign Value Performing Clinician Alexa bedoya 12-24-2024 08:33-0400 Heart rate 58 /min Dr. Matt Saul MD Work Phone: [facility] 12-24-2024 08:26-0400 Body temperature 97.6 [degF] Dr. Matt Saul MD Work Phone: [facility] 12-24-2024 08:26-0400 Diastolic blood pressure 71 mm[Hg] Dr. Matt Saul MD Work Phone: 9(919)764-093829 [place] [address] 12-24-2024 08:26-0400 Respiratory rate 18 /min Dr. Matt Saul MD Work Phone: 8(174)624-915408 [address] 12-24-2024 08:26-0400 SaO2% (BldA) [Mass fraction] 95 % Dr. Matt Saul MD Work Phone: 2(591)475-850008 [address] 12-24-2024 08:26-0400 Systolic blood pressure 128 mm[Hg] Dr. Matt Saul MD Work Phone: 6(306)686-883508 [address] 12-23-2024 18:43-0400 Inhaled oxygen flow rate 2 L/min Dr. Matt Saul MD Work Phone: [facility] 12-23-2024 14:44-0400 Body height 182.[address] Matt Saul MD Work Phone: 9(319)318-263608 [address] 12-23-2024 14:44-0400 Body mass index (BMI) [Ratio] 26.9 kg/m2 Dr. Matt Saul MD Work Phone: 4(374)161-260529 [place] [address] 12-23-2024 14:44-0400 Body weight [address] Matt Saul MD Work Phone: 2(251)175-275653 [place] [address] 04-04-2024 14:18-0500 Body height 182.[address] Matt Saul MD Work Phone: 7(321)277-968208 [address] 04-04-2024 14:18-0500 Body mass index (BMI) [Ratio] 27.2 kg/m2 Dr. Matt Saul MD Work Phone: [facility] 04-04-2024 14:18-0500 Body weight 91.[address] Matt Saul MD Work Phone: [facility] 04-04-2024 14:18-0500 Diastolic blood pressure 90 mm[Hg] Dr. Matt Saul MD Work Phone: [facility] 04-04-2024 14:18-0500 Heart rate 69 /min Dr. Matt Saul MD Work Phone: [facility] 04-04-2024 14:18-0500 Respiratory rate 16 /min Dr. Matt Saul MD Work Phone: [facility] 04-04-2024 14:18-0500 Systolic blood pressure 132 mm[Hg] Dr. Matt Saul MD Work Phone: [facility] 02-19-2024 12:20-0500 Diastolic blood pressure 72 mm[Hg] Demetri Lord MD Work Phone: [facility] 02-19-2024 12:20-0500 Heart rate 55 /min Demetri Lord MD Work Phone: [facility] 02-19-2024 12:20-0500 Respiratory rate 16 /min Demetri Lord MD Work Phone: [facility] 02-19-2024 12:20-0500 SaO2% (BldA) [Mass fraction] 95 % Demetri Lord MD Work Phone: [facility] 02-19-2024 12:20-0500 Systolic blood pressure 115 mm[Hg] Demetri Lord MD Work Phone: [facility] 02-19-2024 10:40-0500 Body mass index (BMI) [Ratio] 27.18 kg/m2 Demetri Lord MD Work Phone: [facility] 02-19-2024 10:40-0500 Body temperature 98.4 [degF] Demetri Lord MD Work Phone: [facility] 02-19-2024 10:40-0500 Body weight 90.9 kg Demetri Lord MD Work Phone: [facility] 02-16-2024 14:03-0400 Body height 182.9 cm Maddie Jakob CAFETERIA FOOD SERVER.SCIENTIFIC DATABASE CURATOR Work Phone: [facility] 02-16-2024 14:03-0400 Body mass index (BMI) [Ratio] 27.18 kg/m2 Maddie Jakob CAFETERIA FOOD SERVER.SCIENTIFIC DATABASE CURATOR Work Phone: [facility] 02-16-2024 14:03-0400 Body temperature 97.81 [degF] Maddie Jakob CAFETERIA FOOD SERVER.SCIENTIFIC DATABASE CURATOR Work Phone: [facility] 02-16-2024 14:03-0400 Body weight 90.9 kg Maddie Jakob CAFETERIA FOOD SERVER.SCIENTIFIC DATABASE CURATOR Work Phone: [facility] 02-16-2024 14:03-0400 Diastolic blood pressure 82 mm[Hg] Maddie Jakob CAFETERIA FOOD SERVER.SCIENTIFIC DATABASE CURATOR Work Phone: [facility] 02-16-2024 14:03-0400 Heart rate 80 /min Maddie Jakob CAFETERIA FOOD SERVER.SCIENTIFIC DATABASE CURATOR Work Phone: [facility] 02-16-2024 14:03-0400 SaO2% (BldA) [Mass fraction] 92 % Maddie Jakob CAFETERIA FOOD SERVER.SCIENTIFIC DATABASE CURATOR Work Phone: [facility] 02-16-2024 14:03-0400 Systolic blood pressure 138 mm[Hg] Maddie Jakob CAFETERIA FOOD SERVER.SCIENTIFIC DATABASE CURATOR Work Phone: [facility] 08-18-2023 01:00-0400 Body temperature 98.5 [degF] Dr. Matt Saul Work Phone: [facility] 08-18-2023 01:00-0400 Diastolic blood pressure 91 mm[Hg] Dr. Matt Saul Work Phone: [facility] 08-18-2023 01:00-0400 Heart rate 59 /min Dr. Matt Saul Work Phone: [facility] 08-18-2023 01:00-0400 Respiratory rate 18 /min Dr. Matt Saul Work Phone: 6(703)571-439908 [address] 08-18-2023 01:00-0400 SaO2% (BldA) [Mass fraction] 98 % Dr. Matt Saul Work Phone: [facility] 08-18-2023 01:00-0400 Systolic blood pressure 148 mm[Hg] Dr. Matt Saul Work Phone: 4(119)863-631553 [place] [address] 08-17-2023 21:03-0400 Body height 182.[address] Matt Saul Work Phone: 2(440)434-365429 [place] [address] 08-17-2023 21:03-0400 Body mass index (BMI) [Ratio] 27.7 kg/m2 Dr. Matt Saul Work Phone: 1(783)718-854608 [address] 08-17-2023 21:03-0400 Body weight 92.[address] Matt Saul Work Phone: 6(573)100-401529 [place] [address] 05-17-2023 11:30-0500 Body mass index (BMI) [Ratio] 28.2 kg/m2 Dr. Matt Saul Work Phone: 3(273)914-455453 [place] [address] 05-17-2023 11:30-0500 Body temperature 97.8 [degF] Dr. Matt Saul Work Phone: 7(106)688-721553 [place] [address] 05-17-2023 11:30-0500 Body weight 94.[address] Matt Saul Work Phone: 5(480)120-504229 [place] [address] 05-17-2023 11:30-0500 Diastolic blood pressure 76 mm[Hg] Dr. Matt Saul Work Phone: 6(549)228-783808 [address] 05-17-2023 11:30-0500 Heart rate 71 /min Dr. Matt Saul Work Phone: [facility] 05-17-2023 11:30-0500 Respiratory rate 16 /min Dr. Matt Saul Work Phone: [facility] 05-17-2023 11:30-0500 SaO2% (BldA) [Mass fraction] 96 % Dr. Matt Saul Work Phone: [facility] 05-17-2023 11:30-0500 Systolic blood pressure 140 mm[Hg] Dr. Matt Saul Work Phone: [facility] 02-08-2023 13:58-0400 Body height 182.[address] Armond Saul Work Phone: 3(251)537-772908 [address] 02-08-2022 13:51-0400 Body height 182.[address] Armond Saul Work Phone: 1(552)288-028808 [address] 02-08-2022 13:51-0400 Body mass index (BMI) [Ratio] 26.9 kg/m2 Dr. Armond Saul Work Phone: 7(623)862-796153 [place] [address] 02-08-2022 13:51-0400 Body mass index (BMI) [Ratio] 28 kg/m2 Dr. Armond Saul Work Phone: [facility] 02-08-2022 13:51-0400 Body weight 90.[address] Armond Saul Work Phone: [facility] 02-08-2022 13:51-0400 Body weight 93.[address] Armond Saul Work Phone: [facility] 02-08-2022 13:51-0400 Diastolic blood pressure 91 mm[Hg] Dr. Armond Saul Work Phone: [facility] 02-08-2022 13:51-0400 Diastolic blood pressure 84 mm[Hg] Dr. Armond Saul Work Phone: [facility] 02-08-2022 13:51-0400 Heart rate 70 /min Dr. Armond Saul Work Phone: [facility] 02-08-2022 13:51-0400 Heart rate 67 /min Dr. Armond Saul Work Phone: [facility] 02-08-2022 13:51-0400 Respiratory rate 16 /min Dr. Armond Saul Work Phone: [facility] 02-08-2022 13:51-0400 Respiratory rate 18 /min Dr. Armond Saul Work Phone: [facility] 02-08-2022 13:51-0400 SaO2% (BldA) [Mass fraction] 95 % Dr. Armond Saul Work Phone: [facility] 02-08-2022 13:51-0400 SaO2% (BldA) [Mass fraction] 94 % Dr. Armond Saul Work Phone: [facility] 02-08-2022 13:51-0400 Systolic blood pressure 155 mm[Hg] Dr. Armond Saul Work Phone: [facility] 02-08-2022 13:51-0400 Systolic blood pressure 132 mm[Hg] Dr. Armond Saul Work Phone: [facility] 11-08-2016 13:10-0400 BMI (Body Mass Index) 28.87 kg/m2 [facility] Work Phone: 11-08-2016 13:10-0400 BP Diastolic 68 mm[Hg] [facility] Work Phone: 11-08-2016 13:10-0400 BP Systolic 130 mm[Hg] [facility] Work Phone: 11-08-2016 13:10-0400 Height 180.[address] [facility] Work Phone: 11-08-2016 13:10-0400 Pulse (Heart Rate) 58 /min [facility] Work Phone: 11-08-2016 [...] Provider Facility Start: 02-26-2025 ambulatory Oneyda Solano Facility:[facility] Start: 01-15-2025 Registered Recurring Oneyda Solano PA -Physical Therapy Work Phone: Start: 01-06-2025 End: 01-06-[address] Matt Saul MD Work Phone: -Laboratory Specimen Start: 01-06-2025 End: 01-06-[address] Matt Saul MD -Laboratory Specimen Work Phone: Start: 01-06-2025 End: 01-06-2025 ambulatory Matt Saul Facility:[facility] Start: 12-26-2024 Encounter for other preprocedural examination [facility] Start: 12-26-2024 Encounter for preprocedural cardiovascular examination [facility] Start: 12-24-2024 Non-patient / Non-visit Dr. Yumiko Carrillo MD -[facility] Work Phone: Start: 12-23-2024 Non-patient / Non-visit [facility] -[facility] Work Phone: Start: 12-23-2024 End: 12-24-2024 ambulatory Major Yi Facility:[facility] Start: 12-23-2024 End: 12-24-2024 Evaluation and management of inpatient Dr. Major Yi DO -Medical Surgical 3 Work Phone: Start: 12-23-2024 End: 12-24-[address] Matt Saul MD Work Phone: -Medical Surgical 3 Start: 11-27-2024 ambulatory Major Carrascoi ty:[facility] Start: 11-27-2024 Non-patient / Non-visit Dr. Seven Grey MD -[facility] Work Phone: Start: 11-26-2024 End: 11-26-[address] Matt Saul MD Work Phone: -Cat Scan [facility] Start: 11-26-2024 End: 11-26-[address] Major Yi DO -Cat Scan [facility] Work Phone: Start: 11-26-2024 End: 11-26-2024 ambulatory Major Yi Facility:[facility] Start: 07-09-2024 End: 07-09-2024 ambulatory Yang WAGGONER Facility:[facility] [place] Start: 06-18-2024 End: 06-18-[address] Matt Saul MD Work Phone: [facility] Work Phone: Start: 06-18-2024 End: 06-18-[address] Matt Saul MD -Radiology, Helper Work Phone: Start: 06-18-2024 End: 06-18-2024 ambulatory Matt Colerosie Facility:[facility] Start: 04-04-2024 End: 04-04-[address] Nathan Purcell MD -[facility] Work Phone: Start: 04-04-2024 End: 04-04-2024 ambulatory Nathan Purcell Facility:[facility] [place] Start: 02-26-2024 End: 02-26-2024 ambulatory [facility] Facility:[facility] Start: 02-26-2024 End: 02-26-2024 Patient encounter procedure Maddie Bernstein APRN.SCIENTIFIC DATABASE CURATOR Work Phone: General Surgery Comment on above: History of colonic p olyps (Primary Dx) Start: 02-19-2024 End: 02-19-2024 ambulatory [facility] Facility:[facility] Start: 02-19-2024 End: 02-19-2024 Subsequent hospital visit by physician Demetri Lord MD Work Phone: Ambulatory Surgery Comment on above: History of colonic p olyps [Z86.0100] Start: 02-16-2024 End: 02-16-2024 ambulatory [facility] Facility:[facility] Start: 02-16-2024 End: 02-16-2024 Patient encounter procedure Maddie Bernstein APRN.SCIENTIFIC DATABASE CURATOR Work Phone: General Surgery Comment on above: History of colonic p olyps (Primary Dx); Screen for colon cancer Start: 02-16-2024 End: 03-18-2024 Telephone encounter Molly VEGA General Surgery Comment on above: 02-19-2024 [facility] py Start: 08-17-2023 End: 08-18-2023 Emergency department patient visit Dr. Matt Saul Work Phone: [facility] Work Phone: Start: 05-17-2023 End: 05-17-[address] Matt Saul Work Phone: [facility] Work Phone: Start: 03-15-2023 Non-patient / Non-visit Dr. Jabier Saul Work Phone: [facility] Work Phone: Start: 03-14-2023 Non-patient / Non-visit Dr. Jabier Sual Work Phone: [facility] Start: 03-14-2023 End: 03-14-[address] Armond Salu Work Phone: [facility] Work Phone: Start: 03-14-2023 End: 03-14-[address] Armond Saul Work Phone: [facility] Work Phone: Start: 02-08-2023 End: 02-08-[address] Armond Saul Work Phone: [facility] Work Phone: Start: 05-20-2022 Non-patient / Non-visit Dr. Jabier Saul Work Phone: [facility] Start: 05-17-2022 Non-patient / Non-visit Dr. Jabier Saul Work Phone: [facility] Start: 05-17-2022 End: 05-17-[address] Armond Saul Work Phone: [facility] Work Phone: Start: 05-17-2022 End: 05-17-[address] [facility] Start: 05-04-[address] Rowdy Saul Work Phone: [facility] Start: 02-08-2022 End: 02-08-[address] Armond Saul Work Phone: [facility] Procedures Date Procedure Procedure Detail [...] dx w/collj spec when pfrmd Maddie Bernstein CAFETERIA FOOD SERVER.SCIENTIFIC DATABASE CURATOR Work Phone: Start: 02-19-2024 Colonoscopy Demetri abernathy [...] - S marciano or Plasma Maddie Bernstein APRN.SCIENTIFIC DATABASE CURATOR Work Phone: Start: 03-31-2014 End: 04-02-2014 *Hepatic [...] P,Tdap,Td Vaccine (4 - Td or Tdap) [facility] Start: 02-18-2027 Screening for malign ant neoplasm of colon [facility] Start: 12-24-2024 Patient discharge [facility] Start: 12-23-2024 Care regimes management [facility] Start: 12-23-2024 Notification of physician [facility] Start: 12-23-2024 [facility] Start: 12-23-2024 Application of intermittent pneumatic compression device [facility] Start: 12-23-2024 Following clinical p athway protocol [facility] Start: 12-23-2024 Anes arthroscopic to bernard shoulder replacement ANESTH SHOULDER REPLACEMENT [facility] Start: 12-23-2024 Prosthetic total arthroplasty of left shoulder RECONSTRUCT SHOULDER JOINT [facility] Start: 12-23-2024 Admission procedure [facility] Start: 12-23-2024 Ambulation therapy management [facility] Start: 12-23-2024 Application of device [facility] Start: 12-23-2024 Assessment of risk o f venous thromboembolism [facility] Start: 12-23-2024 Catheterization of vein [facility] Start: 12-23-2024 Following clinical p athway protocol [facility] Start: 12-23-2024 Incentive spirometry [facility] Start: 12-23-2024 Introduction of urin angeline catheter [facility] Start: 12-23-2024 Measuring intake and output [facility] Start: 12-23-2024 Neurovascular assessment [facility] Start: 12-23-2024 Patient education [facility] Start: 12-23-2024 Procedure discontinued [facility] Start: 12-23-2024 Provision of activit y privileges [facility] Start: 12-23-2024 Recommendation to co ritika with treatment [facility] Start: 12-23-2024 Referral to occupati onal therapist [facility] Start: 12-23-2024 Vital signs measurements [facility] Start: 12-23-2024 Wound care [facility] Start: 12-23-2024 [facility] Start: 12-23-2024 Consultation [facility] Start: 02-26-2024 End: 02-26-2024 Patient encounter procedure 02/26/2024 1:00 PM EST Office Visit General Surgery [address] [place] [address] Maddie Bernstein APRN.SCIENTIFIC DATABASE CURATOR [address] [place] [address] Colonsocopy follow up 02-19-2024 General Surgery Comment on above: Colonsocopy follow u p 02-19-2024 Start: 02-19-2024 End: 02-19-2024 Patient encounter procedure 02/19/2024 11:45 AM EST Appointment Ambulatory Surgery [address] [place] [address] Demetri Lord MD [address] [place] [address] Ambulatory Surgery Start: 08-18-2023 [facility] Start: 08-17-2023 [facility] Start: 07-01-2023 Screening for malign ant neoplasm of colon [facility] Start: 04-17-2023 Advance Directive Discussion Advance Directive Discussion [facility] Start: 03-21-2022 Diabetes Screening Diabetes Screenin g [facility] Start: 11-15-2021 Pneumococcal Vaccine : 65+ (2 of 2 - PPSV23 or PCV20) Pneumococcal Vaccine: 65+ (2 of 2 - PPSV23 or PCV20) [facility] Start: 04-02-2019 Lipid panel Lipid Screening [facility] Start: 05-11-2017 End: 05-11-2017 Appointment Appointment [facility] Work Phone: Start: 11-08-2016 End: 11-08-2016 Appointment Appointment [facility] Work Phone: Start: 11-08-2016 End: 11-08-2016 *Hepatic Function Panel *Hepatic Function Panel [facility] Work Phone: Start: 11-08-2016 End: 11-08-2016 GERRY GARRETT [facility] Work Phone: Start: 11-08-2016 End: 11-08-2016 Follow Up Appt 6 months Follow Up Appt 6 months [facility] Work Phone: Start: 11-08-2016 End: 11-08-2016 Lipid 1996 panel *Lipid Profile CC PCP [facility] Work Phone: Start: 10-19-2016 End: 11-08-2016 *Hepatic Function Panel *Hepatic Function Panel [facility] Work Phone: Start: 10-19-2016 [...] Lipid panel [AGGREGATE] *Lipid Profile CC PCP [facility] Work Phone: Start: 03-31-2015 End: 04-08-2015 *Hepatic Function Panel *Hepatic Function Panel [facility] Work Phone: Start: 03-31-2015 End: 03-31-2015 GERRY GARRETT [facility] Work Phone: Start: 03-31-2015 End: 03-31-2015 Follow Up Appt 1 year Follow Up Appt 1 year [facility] Work Phone: Start: 03-31-2015 End: 04-08-2015 Lipid panel [AGGREGATE] *Lipid Profile CC PCP [facility] Work Phone: Start: 12-29-2014 End: 12-30-2014 Stress Echocardiogram (treadmill) Stress Echocardiogram (treadmill) [facility] Work Phone: Start: 03-31-2014 End: 04-02-2014 *Hepatic Function Panel *Hepatic Function Panel [facility] Work Phone: Start: 03-31-2014 End: 03-31-2014 GERRY GERRY [facility] Work Phone: Start: 03-31-2014 End: 03-31-2014 Follow Up Appt 1 year Follow Up Appt 1 year [facility] Work Phone: Start: 03-31-2014 End: 04-02-2014 Lipid panel [AGGREGATE] *Lipid Profile CC PCP [facility] Work Phone: Start: 03-31-2014 End: 03-31-2014 Stress Echocardiogram (treadmill) Stress Echocardiogram (treadmill) [facility] Work Phone: Start: 06-10-2013 End: 06-10-2013 GERRY GERRY [facility] Work Phone: Start: 06-10-2013 End: 06-10-2013 Follow Up Appt 1 year Follow Up Appt 1 year [facility] Work Phone: Start: 03-25-2013 End: 03-25-2013 GERRY GERRY [facility] Work Phone: Start: 03-25-2013 End: 03-25-2013 Follow Up Appt 1 year Follow Up Appt 1 year [facility] Work Phone: Start: 08-07-2005 Hepatitis B surface antibody level LDL Cholesterol [facility] Start: 1993 Screening for malign ant neoplasm of colon [facility] Start: 1966 Annual PCP Team Shank Paperer kavin Disease Visit Annual PCP Team Chronic Disease Visit [facility] Start: 1966 BP Controlled (<130/80) BP Controlle d (<130/80) [facility] Start: 1966 Depression Screening Depression Scre ening [facility] Start: 1966 Hepatitis C screening Hepatitis C Sc [facility] Patient Education [facility] Work Phone: [facility] referral [facility] Work Phone: End: 02-15-2025 Screening colonoscopy COLONOSCOPY SCREENING Endoscopy Routine History of colonic polyps Screen for colon cancer 1 Occurrences starting 02/16/2024 until 02/15/2025 [facility] Work Phone: Comment on above: 1 Occurrences starti ng 02/16/2024 until 02/15/2025 SURGICAL PATHOLOGY [facility] Work Phone: Comment on above: Release Upon Orderin g for 1 Occurrences starting 02/19/2024, 1 completed Immunizations Immunization Date Immunization Notes Care Provider Fa cility 07-13-2020 Covid (Moderna) Dr. Selena Saul Work Phone: [facility] 06-15-2020 Kia (Moderna) Dr. Selena Saul Work Phone: [facility] 01-30-2014 influenza, seasonal, injectable Maddie Jakob [employer]IA FOOD SERVER.SCIENTIFIC DATABASE CURATOR Work Phone: [facility] Work Phone: 02-09-2013 influenza virus vaccine, unspecified formulation Maddie Jakob [employer]IA FOOD SERVER.SCIENTIFIC DATABASE CURATOR Work Phone: [facility] 06-11-2012 tetanus toxoid, reduced diphtheria toxoid, and acellular pertussis vaccine, adsorbed Maddie Jakob CA[employer]IA FOOD SERVER.SCIENTIFIC DATABASE CURATOR Work Phone: [facility] 06-11-2012 zoster vaccine, live Kimberl ey Jakob [employer]IA FOOD SERVER.SCIENTIFIC DATABASE CURATOR Work Phone: [facility] 02-05-2011 influenza virus vaccine, unspecified formulation Maddie Jakob CAFETERIA FOOD SERVER.SCIENTIFIC DATABASE CURATOR Work Phone: [facility] 01-26-2010 influenza virus vaccine, unspecified formulation Maddie Jakob CAFETERIA FOOD SERVER.SCIENTIFIC DATABASE CURATOR Work Phone: [facility] Work Phone: 01-21-2009 influenza virus vaccine, unspecified formulation Maddie Jakob CAFETERIA FOOD SERVER.SCIENTIFIC DATABASE CURATOR Work Phone: [facility] Work Phone: 02-21-2008 influenza virus vaccine, unspecified formulation Maddie Jakob CAFETERIA FOOD SERVER.SCIENTIFIC DATABASE CURATOR Work Phone: [facility] Work Phone: 02-20-2007 influenza virus vaccine, unspecified formulation Maddie Jakob HALL Work Phone: [facility] 07-21-2003 tetanus and diphther ia toxoids, adsorbed, preservative free, for adult use (2 Lf of tetanus toxoid and 2 Lf of diphtheria toxoid) Maddie Jakob HALL Work Phone: [facility] Payers Date Payer Category Payer Self-pay [id number] 2017 Private Health Insurance AETNA S UPPLEMENT AETNA MEDICARE SUPPLEMENT [id number] 2017-Present [phone] [address] [address] [place] [address] Indemnity [id number] 2017 Private Health Insurance [facility] [id number] 2014 Unknown [id number] 2013 Medicare MEDICARE MEDICAR E A AND B [id number] 2013-Present [phone] [address] [address] [place] [address] Medicare [id number] 2013 Medicare [id number] Unknown [id number] Unknown [id number]. 2.462 Unknown [id number]. 2.462 Unknown [id number] [id number]. 2.462 Unknown [id number] [id number]. 2.462 Unknown [id number] 2.16.840.1.942118.3.579. 2.462 Unknown [id number] 2.16.840.1.458584.3.579. 2.462 Unknown [id number] 2.16.840.1.085599.3.579. 2.462 Unknown [id number] 2.16.840.1.590452.3.579. 2.462 Unknown [id number] 2.16.840.1.747196.3.579. 2.462 Unknown [id number] [id number]. 2.462 Social History Date Type Detail Facility Start: 02-08-2022 End: 08-17-2023 Tobacco smoking status TXIS Unknown if ever smoked [facility] Start: 1950 Sex Assigned At Male [facility] Start: 07-20-2017 End: 12-03-2024 Tobacco smoking status TXIS Never smoked tobacco [facility] Start: 07-20-2017 Tobacco use and exposure Smokeless tobacco non-user [facility] Start: 02-16-2024 End: 02-23-2024 Alcoholic beverage intake Current non-drinker of alcohol (finding) [facility] Start: 02-16-2024 End: 02-19-2024 History of Social function [facility] Start: 02-16-2024 End: 02-19-2024 Tobacco use panel [facility] National Score (1-10 0), lower number is lower risk 75 [facility] Start: 1950 [facility] at [facility] Start: 07-03-2024 Sex Male (finding) [facility] Medical Equipment Procedure Code Equipment Code Equipment Origin al Text Equipment Identifier Dates GLENOSPHERE FDA Start: 12-23-2024 HUMERAL STEM FDA Start: 12-23-2024 HUMERAL SYSTEM FDA Start: 09-08-2025 LATERALIZED BASEPLATE FDA Sta rt: 12-23-2024 SCREW FDA Start: 12-23-2024 SHORT POST FDA Start: 12-23-2024 Goals Date Patient Goal Desired Activity /State Functional Status Date Assessment Result Facility 12-24-2024 Functional status Ambulates [facility] Work Phone: Mental Status Date Assessment Result Facility 12-24-2024 Cognitive function Level Of Cons ciousness Awake;Alert;Appropriate;Follow s Commands [facility] Work Phone: 12-24-2024 Cognitive function Voice/Name [facility] Work Phone: 08-17-2023 Cognitive function Voice/Name [facility] Work Phone: Clinical Notes 08-17-2006 to 12-24-2024 Note Date & Type Note Facility 12-24-2024 Discharge summary Note Date/Time December 24, 2024 11:59am [facility] Medical Records Department [address] [place] [address] Discharge Summary 12/24/24 1018 MR#: [id number] Acct: [id number] Name: MARIA E GUTHRIE Rep #:[id number] : 1950 74 From: Oneyda WAGGONER PCP: Dr. Matt Saul MD Status :ADM BAR Location: [place] [address] Providers Date of Admission: 12/23/24 Date of [...] IMPRESSION: Right shoulder reverse arthroplasty. Reading Location: [place] [address] D/C Instructions Discharge Activity: May Shower Weight [...] Dr. Matt Saul MD; EDILSON Diaz~ Signed [facility] Work Phone: 1(284) 577-639809-09-2025 Discharge summary [facility] Medical Records Department [address] [place] [address] Discharge Summary 12/24/24 1018 MR#: [id number] Acct: [id number] Name: MARIA E GUTHRIE Rep #:[id number] : 1950 74 From: Oneyda WAGGONER PCP: Dr. Matt Saul MD Status :ADM BAR Location: [place] [address] Providers Date of Admission: 12/23/24 Date of [...] IMPRESSION: Right shoulder reverse arthroplasty. Reading Location: [place] [address] D/C Instructions Discharge Activity: May Shower Weight [...] Dr. Matt Saul MD; EDILSON Diaz~ Signed [facility]09-09-2025 Progress note Author Major Carrillo [facility] Note Date/Time December 24, 2024 9:42am [facility] Medical Records Department [address] [place] [address] Progress Note - Hospitalist 12/24/24913 MR#: [id number] Acct: [id number] Name: MARIA E GUTHRIE Rep #:[id number] : 1950 74 From: Major mathews MD PCP: Dr. Matt Saul MD Status :ADM BAR Location: [place] [address]67[address] Subjective Subjective Doing well, pain is controlled [...] IMPRESSION: Right shoulder reverse arthroplasty. Reading Location: [place] [address] Physical Exam Narrative General: Alert, Oriented x3, [...] with questions Charges/Coding Visit Charges Inpatient E&M: 82286 Subs Hosp L2 12/24/24 0942 <Electronically signed by Major Carrillo MD> Cosigner Signature (if applicable): CC: ~ Signed ADDENDUM by Dr. Major Carrillo MD on 12/24/24 at 0942 Visit Charges Office Visits / Consults: 71722 OV L3 Est 20min 12/24/24 0942<Electronically signed by Major Carrillo MD> Cosigner Signature (if applicable): cc: ~* Signed [facility] Work Phone: 1(677) 600-652709-09-2025 [facility] Medical Records Department [address] [place] [address] Discharge Summary 12/24/24 1018 MR#: [id number] Acct: [id number] Name: MARIA E GUTHRIE Rep #: [id number] : 1950 74 From: Oneyda WAGGONER PCP: Dr. Matt Saul MD Status:ADM BAR Location: [address] Providers Date of Admission: 12/23/24 Date [...] 20 H, Creatinine 1.01 (more content not included)...[facility]09-09-2025 Progress note [facility] Medical Records Department [address] [place] [address] Progress Note - Hospitalist 12/24/24913 MR#: [id number] Acct: [id number] Name: MARIA E GUTHRIE Rep #:[id number] : 1950 74 From: Major mathews MD PCP: Dr. Matt Saul MD Status :ADM BAR Location: [place] [address] Subjective Subjective Doing well, pain is controlled [...] IMPRESSION: Right shoulder reverse arthroplasty. Reading Location: [place] [address] Physical Exam Narrative General: Alert, Oriented x3, [...] with questions Charges/Coding Visit Charges Inpatient E&M: 39155 Subs Hosp L2 12/24/24 0942 Cosigner Signature (if applicable): CC: ~ Signed ADDENDUM by Dr. Major Carrillo MD on 12/24/24 at 0942 Visit Charges Office Visits / Consults: 16317 OV L3 Est 20min 12/24/24 0942 Cosigner Signature (if applicable): cc: ~* Signed [facility]09-08-2025 Consult note Author Hansel Sultana [facility] Note Date/Time December 23, 2024 8:16pm [facility] Medical Records Department [address] [place] [address] Consultation - Hospitalist 12/23/24 1608 MR#: [id number] Acct: [id number] Name: MARIA E GUTHRIE Rep #:[id number] : 1950 74 From: Hansel foreman DO PCP: Dr. Matt Saul MD Status :ADM BAR Location: [place] [address] Assessment & Plan Assessment/Plan (1) Right rotator cuff tear arthropathy: PLAN: Plan Patient is a 74-year-old male who presented to [facility] on 12/23/2024 for planned right shoulder procedure. [...] is a 74 M who presented to [facility] on 12/23/2024 for planned orthopedic procedure. Medicine [...] No other acute concerns at this time. 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 Reading Location: [place] [address] Charges/Coding Visit Charges Inpatient E&M: 45916 Subs Hosp L2 12/23/242015 <Electronically signed by Hansel Sultana DO> Cosigner Signature (if applicable): CC: Dr. Matt Saul MD; Dr. Major Yi DO~ Signed [facility] Work Phone: 1(379) 360-568009-08-2025 Consult note [facility] Medical Records Department [address] [place] [address] Consultation - Hospitalist 12/23/24 1608 MR#: [id number] Acct: [id number] Name: MARIA E GUTHRIE Rep #:[id number] : 1950 74 From: Hansel foreman DO PCP: Dr. Matt Saul MD Status :ADM BAR Location: [place] [address] Assessment & Plan Assessment/Plan (1) Right rotator cuff tear arthropathy: PLAN: Plan Patient is a 74-year-old male who presented to [facility] on 12/23/2024 for planned right shoulder procedure. [...] Postoperative medical management HPI Narrative: MARIA E GUHTRIE, is a 74 M who presented to [facility] on 12/23/2024 for planned orthopedic procedure. Medicine [...] No other acute concerns at this time. [facility] Medical History Wears hearing aid Wears glasses Wears partial dentures History of steroid therapy Arthritis Dietary restriction Non-smoker History of echocardiogram History of stress test Cardiology follow-up encounter Diabetes Myocardial infarct Hypertension Osteoarthritis Gout Atherosclerosis of coronary artery of barrow heart without angina pectoris Hyperlipidemia Home Medications [...] Type Severity Reaction Status Date / Time Lzmjeiw-TUX-MxY Reductase AdvReac Mild myalgias Verified 12/23/24 10:26 Inhibitor (Cqcymtf-Ftb-Kxn Reductase Inhibitor) Family History Brother CAD (coronary [...] IMPRESSION: Right shoulder reverse arthroplasty. Reading Location: [place] [address] Charges/Coding Visit Charges Inpatient E&M: 91345 Subs Hosp L2 12/23/242015 Cosigner Signature (if applicable): CC: Dr. Matt Saul MD; Dr. Major Yi, DO~ Signed [facility]09-08-2025 Consult note Author Osei Lubin [facility] Note Date/Time December 23, 2024 2:33pm [facility] Medical Records Department [address] [place] [address] Anesthesia Postop Eval II 12/23/24 1433 MR#: [id number] Acct: [id number] Name: MARIA E GUTHRIE Rep #:[id number] : 1950 74 From: Osei Choudhury PCP: Dr. Matt Saul MD Status :ADM BAR Y Race: C Location: [place] [address] Anesthesia Postop Eval I Sum Postop Eval Completion status Anesthesia document: Postop Eval 1 completed: Yes Anesthesia Postop Eval I Summary Anesthesia Postop Eval I Summary: Anesthesia Postop Eval I: Assessment Summary Airway patent Yes 12/23/24 13:32 DEMOLITION HAMMER OPERATOR.CSIR Spontaneous unlabored Yes 12/23/24 13:32 DEMOLITION HAMMER OPERATOR.CSIR respirations Mental status nausea No 12/23/24 13:32 DEMOLITION HAMMER OPERATOR.CSIR Vomiting No 12/23/24 13:32 DEMOLITION HAMMER OPERATOR.CSIR Anesthesia Postop Eval I: Fluid Summary Crystalloid volume administer 1,300 12/23/24 13:32 DEMOLITION HAMMER OPERATOR.CSIR (ml) Colloids volume administered ( ml) Blood Product volume administered (ml) Total IV fluid infused 1,300 12/23/24 13:32 DEMOLITION HAMMER OPERATOR.CSIR Anesthesia Postop Eval I: Summary Notes Anesthesia Complication No 12/23/24 13:32 DEMOLITION HAMMER OPERATOR.CSIR Anesthesia Complication Comment: Post-operative progress note Anesthesia: Postop Eval II Evaluation Mental status: Awake and Calm Pain Level: 1 nausea: No Vomiting: No Complications Anesthesia Complication: No 12/23/24 1433 <Electronically signed by Osei Lubin MD> Date _ Osei Lubin MD Cosigner Signature: Date CC: ~ Signed [facility] Work Phone: 1(738) 486-700809-08-2025 Consult note Author Priscilla Willard [facility] Note Date/Time December 23, 2024 1:33pm [facility] Medical Records Department [address] [place] [address] Anesthesia Postop Eval I 12/23/24 1332 MR#: [id number] Acct: [id number] Name: MARIA E GUTHRIE Rep #:[id number] : 1950 74 From: Priscilla Willard CRNA PCP: Dr. Matt Saul MD Status :REG SDC Y Race: C Location: [place] [address] Anesthesia: Postop Eval I Current Vital Signs [...] Priscilla cruz CRNA> Date _ Priscilla Willard DEMOLITION HAMMER OPERATOR Cosigner Signature: Date CC: ~ Signed [facility] Work Phone: 1(348) 938-194109-08-2025 Evaluation note* Diagnosis Onset Date Resolution Status Admit Date Right rotator cuff tear arthropathy acute December 23 1:06pm Status post reverse total arthroplasty of right shoulder acute S epte2024 1:06pm [facility] Work Phone: 1(118) 655-326509-08-2025 Evaluation note* Diagnosis Onset Date Resolution Status Admit Date Right rotator cuff tear arthropathy inactive Maureen 8th, 2 025 1:06pm Status post reverse total arthroplasty of right shoulder inactive December 23 1:06pm [facility] Work Phone: 1(940) 132-933409-08-2025 Consult note [facility] Medical Records Department [address] [place] [address] Anesthesia Postop Eval II 12/23/24 1433 MR#: [id number] Acct: [id number] Name: MARIA E GUTHRIE Rep #:[id number] : 1950 74 From: Osei Choudhury PCP: Dr. Matt Saul MD Status :ADM BAR Y Race: C Location: [address] Anesthesia Postop Eval I Sum Postop Eval Completion status Anesthesia document: Postop Eval 1 completed: Yes Anesthesia Postop Eval I Summary Anesthesia Postop Eval I Summary: Anesthesia Postop Eval I: Assessment Summary Airway patent Yes 12/23/24 13:32 DEMOLITION HAMMER OPERATOR.CSIR Spontaneous unlabored Yes 12/23/24 13:32 DEMOLITION HAMMER OPERATOR.CSIR respirations Mental status nausea No 12/23/24 13:32 DEMOLITION HAMMER OPERATOR.CSIR Vomiting No 12/23/24 13:32 DEMOLITION HAMMER OPERATOR.CSIR Anesthesia Postop Eval I: Fluid Summary Crystalloid volume administer 1,300 12/23/24 13:32 DEMOLITION HAMMER OPERATOR.CSIR (ml) Colloids volume administered ( ml) Blood Product volume administered (ml) Total IV fluid infused 1,300 12/23/24 13:32 DEMOLITION HAMMER OPERATOR.CSIR Anesthesia Postop Eval I: Summary Notes Anesthesia Complication No 12/23/24 13:32 DEMOLITION HAMMER OPERATOR.CSIR Anesthesia Complication Comment: Post-operative progress note Anesthesia: Postop Eval II Evaluation Mental status: Awake and Calm Pain Level: 1 nausea: No Vomiting: No Complications Anesthesia Complication: No 12/23/24 1433 MD> Date _ Osei Lubin MD Cosigner Signature: Date CC: ~ Signed [facility]09-08-2025 Radiology Diagnostic study note [facility] Imaging Services [address] [place] [address] Shoulder min 2 Views MR#: [id number] Acct: [id number] Name: MARIA E GUTHRIE Rep #: [id number] : 1950 M 74 From: Zhou Suárez MD PCP: Dr. Matt Saul MD Status: REG [facility] Study:Shoulder min 2 Views Date of Exam: 12/23/24 Exam# [id number] Ordering Dr: Major Yi DO PROCEDURE: SHOULDER [...] IMPRESSION: Right shoulder reverse arthroplasty. Reading Location: [place] [address] CC: Dr. Matt Saul MD; Dr. Major Yi DO ~ Core Shaper Top: Signed [facility]09-08-2025 Consult note [facility] Medical Records Department [address] [place] [address] Anesthesia Postop Eval I 12/23/24 1332 MR#: [id number] Acct: [id number] Name: MARIA E GUTHRIE Rep #:[id number] : 1950 74 From: Priscilla Willard CRNA PCP: Dr. Matt Saul MD Status :[facility] Y Race: C Location: [place] [address] Anesthesia: Postop Eval I Current Vital Signs Temperature: 97 F Pulse Rate: 89 Blood Pressure: 145/87 Respiratory Rate: 18 Pulse Ox: 93 Assessment Airway patent: Yes Spontaneous unlabored respirations: Yes nausea: No Vomiting: No Anesthesia Complication: No Fluid Hydration Crystalloid volume administer (ml): 1,300 Total IV fluid infused: 1,300 Progress Note Anesthesia document: Postop Eval 1 completed: Yes 12/23/24 1333 a DEMOLITION HAMMER OPERATOR> Date _ Priscilla Willard DEMOLITION HAMMER OPERATOR Cosigner Signature: Date CC: ~ Signed [facility]09-08-2025 Procedure note [facility] Medical Records Department [address] [facility] [place] [address] Operative Report 12/23/24 1322 MR#: [id number] Acct: [id number] Name: MARIA E GUTHRIE Rep #:[id number] : 1950 74 From: Major lake DO PCP: Dr. Matt Saul MD Status :[facility] Location: [place] [address] Operative Report (Standard) Operative Information Date of Procedure: 12/23/24 Pre-Operative Diagnosis: Right shoulder rotator cuff tear arthropathy Post-Operative Diagnosis: Right shoulder rotator cuff tear arthropathy Surgery/Procedure Performed: Right reverse total shoulder arthroplasty health worker: Yes Pedal Assembler: Oneyda Solano Tasks completed by store assistant: Opening & closing, Implanting device, Hemostasis: [...] No Description of surgery: Patient arrived to [facility] morning of the procedure and was greeted [...] positioned in the beachchair position. A well-padded heading machine operator was applied. The nonoperative extremity was placed [...] appropriate depth with good press-fit purchase. A Leland was used to confirm depth. Cortical screws [...] operative suite. He was transferred to the rrosie and subsequently to PACU in stable condition. Need for skilled boiler assistant operator: Oneyda Solano PA-C was critical to the outcome of thecase. During the course of the procedure the physician boiler assistant operator played a vitalrole. Her intimate knowledge of [...] Saul MD; Dr. Major Yi, DO~ Signed [facility]09-08-2025 Consult note Author Osei Lubin [facility] Note Date/Time December 23, 2024 10:57am [facility] Medical Records Department [address] [place] [address] Pre-Anesthesia Evaluation 12/23/24 1052 MR#: [id number] Acct: [id number] Name: MARIA E GUTHRIE Rep #:[id number] : 1950 74 From: Osei Choudhury PCP: Dr. Matt Saul MD Status :REG [facility] Y Race: C Location: [place] [address] ASA Classification* ASA Classification ASA Classification: 2 [...] SHOULDER ARTHROPLASTY Anesthesia History Anesthesia History - filter plant operator: Anesthesia History - filter plant operator Hx Hospitalization No 12/03/24 10:59 Any [...] take am of surgery PONV PONV - filter plant operator: PONV - filter plant operator Female No 12/03/24 10:59 HX of [...] 12/23/24 10:31 Respiratory Assessment Respiratory Assessment - filter plant operator: Respiratory Tract Infection Hx - filter plant operator Hx Respiratory Tract Infection No 12/03/24 10:59 STOP Sleep Apnea STOP Sleep Apnea - filter plant operator: STOP Sleep Apnea - filter plant operator Hx Hypertension Yes: CONTROLLED WITH MED [...] Tobacco Use History Tobacco Use History - filter plant operator: Tobacco Use History - filter plant operator Tobacco Use Smoking Status Never smoker 12/03/24 10:59 Hx Tobacco Use No 12/03/24 10:59 Years Smoking Packs Smoked per Day Smoking Cessation Date was within the last 15 years Hx Smoking Cessation Date Hx Smoking Cessation Counseling Hematologic Medial History Hematologic Hx - filter plant operator: Hematologic Medical Hx - foam cutting supervisor Hx of Blood Transfusion No 12/03/24 10:59 [...] confused, unrespo /Reproduction History /Reproductive History - filter plant operator: /Reproductive Hx- filter plant operator Hx Now No 12/03/24 10:59 Gestational [...] Osteoarthritis Gout Atherosclerosis of coronary artery of barrow heart without angina pectoris Hyperlipidemia Home Medications [...] Type Severity Reaction Status Date / Time Sbpdgug-FHK-KhE Reductase AdvReac Mild myalgias Verified 12/23/24 10:26 Inhibitor (Jscwwra-Kfq-Uwq Reductase Inhibitor) Family History Brother CAD (coronary [...] MD Cosigner Signature: Date CC: ~ Signed [facility] Work Phone: 1(844) 660-581209-08-2025 Consult note [facility] Medical Records Department [address] [place] [address] Pre-Anesthesia Evaluation 12/23/24 1052 MR#: [id number] Acct: [id number] Name: MARIA E GUTHRIE Rep #:[id number] : 1950 74 From: Osei Choudhury PCP: Dr. Matt Saul MD Status :REG SDC Y Race: C Location: [place] [address] ASA Classification* ASA Classification ASA Classification: 2 [...] SHOULDER ARTHROPLASTY Anesthesia History Anesthesia History - filter plant operator: Anesthesia History - filter plant operator Hx Hospitalization No 12/03/24 10:59 Any [...] take am of surgery PONV PONV - filter plant operator: PONV - filter plant operator Female No 12/03/24 10:59 HX of [...] 12/23/24 10:31 Respiratory Assessment Respiratory Assessment - filter plant operator: Respiratory Tract Infection Hx - filter plant operator Hx Respiratory Tract Infection No 12/03/24 10:59 STOP Sleep Apnea STOP Sleep Apnea - filter plant operator: STOP Sleep Apnea - filter plant operator Hx Hypertension Yes: CONTROLLED WITH MED [...] Tobacco Use History Tobacco Use History - filter plant operator: Tobacco Use History - filter plant operator Tobacco Use Smoking Status Never smoker 12/03/24 10:59 Hx Tobacco Use No 12/03/24 10:59 Years Smoking Packs Smoked per Day Smoking Cessation Date was within the last 15 years Hx Smoking Cessation Date Hx Smoking Cessation Counseling Hematologic Medial History Hematologic Hx - filter plant operator: Hematologic Medical Hx - foam cutting supervisor Hx of Blood Transfusion No 12/03/24 10:59 [...] confused, unrespo /Reproduction History /Reproductive History - filter plant operator: /Reproductive Hx- filter plant operator Hx Now No 12/03/24 10:59 Gestational [...] Osteoarthritis Gout Atherosclerosis of coronary artery of barrow heart without angina pectoris Hyperlipidemia Home Medications [...] Type Severity Reaction Status Date / Time Clamnkr-EJO-UbI Reductase AdvReac Mild myalgias Verified 12/23/24 10:26 Inhibitor (Obyrxez-Iet-Zsw Reductase Inhibitor) Family History Brother CAD (coronary [...] MD Cosigner Signature: Date CC: ~ Signed [facility]08-14-2025 Radiology Diagnostic study note [facility] Imaging Services [address] [place] [address] Extremity Upper without Contra MR#: [id number] Acct: [id number] Name: MARIA E GUTHRIE Rep #: [id number] : 1950 M 74 From: Sean Garcia MD PCP: Dr. Matt Saul MD Status: REG CLI Study:Extremity Upper without Contra Date of Exam: 11/26/24 Exam# [id number] Ordering Dr: Major Yi DO PROCEDURE: EXTREMITY [...] Saul MD; Dr. Major Yi DO ~ Core Shaper Top: Signed [facility]03-04-2025 Radiology Diagnostic study note [facility] Imaging Services [address] [place] [id number] Ankle min 3 Views MR#: [id number] Acct: [id number] Name: MARIA E GUTHRIE Rep #: [id number] : 1950 M 74 From: Shannon Joshua MD PCP: Dr. Matt Saul MD Status: REG CLI Study:Ankle min 3 Views Date of Exam: Exam# [id number] Ordering Dr: Luna Saul MD EXAM: XR [...] evaluation with CT is recommended. Reading [facility] CC: Dr. Matt Saul MD ~ Core Shaper Top: Signed [facility]03-04-2025 Radiology Diagnostic study note [facility] Imaging Services [address] [place], [place] [address] Foot min 3 Views MR#: [id number] Acct: [id number] Name: MARIA E GUTHRIE Rep #: [id number] : 1950 M 74 From: Laurent Alva MD PCP: Dr. Matt Saul MD Status: REG CLI Study:Foot min 3 Views Date of Exam: 08/09 Exam# [id number] Ordering Dr: Luna Saul MD PROCEDURE: FOOT [...] suggestive of gout. Calcaneal spurs. Reading Location: [id number] CC: Dr. Matt Saul MD ~ Core Shaper Top: Signed [facility]12-19-2024 Evaluation note* Diagnosis Onset Date Resolution Status Admit Date Essential hypertension chronic De cember 2023 2:13pm History of coronary artery stent placement August 17, 2006 chronic April 04, 2 024 2:13pm Hyperlipidemia chronic March 172023 2:13pm [facility] Work Phone: 1(742) 238-577911-11-2024 History of Present illness Narrative* Maddie Bernstein APRN.SCIENTIFIC DATABASE CURATOR - 02/26/2024 1:00 PM EST FOLLOW UP VISIT - ENDOSCOPY Maria E Guthrie 1950 [id number] REFERRING PHYSICIAN: Matt Saul (Rashida) [address] [facility] [address] Maria E Guthrie is a patient I [...] as needed for worsening/no improvement. Maddie Bernstein APRN.SCIENTIFIC DATABASE CURATOR documented [facility]-2024 NoteHNO ID: [id number] Author: MADDIE BERNSTEIN APRN.SCIENTIFIC DATABASE CURATOR Service: ? Author Type: Nurse Practitioner Type: Progress Notes Filed: 02/26/2024 13:03 Note Text: FOLLOW UP VISIT - ENDOSCOPY Maria E Guthrie 1950 [id number] REFERRING PHYSICIAN: Matt Saul (Rashida) [address] [place] [address] Maria E Guthrie is a patient I [...] as needed for worsening/no improvement. Maddie Bernstein APRN.[facility]11-04-2024 Note* Discharge Instr - Nursing - Estelle Bird RN - 02/19/2024 12:17 PM EST The patient received a copy of Colonoscopy discharge instructions that contain information for how to contact the physician who performed the procedure and when to seek medical care. [facility]11-04-2024 Miscellaneous Notes* Discharge Instr - Nursing - Estelle Bird RN - 02/19/2024 12:17 PM EST The patient received a copy of Colonoscopy discharge instructions that contain information for how to contact the physician who performed the procedure and when to seek medical care. documented in this encounterElyria [facility]11-04-2024 NoteHNO ID: [id number] Author: ESTELLE BIRD RN Service: ? Author Type: Registered Nurse Type: Nursing Progress Note Filed: 02/19/2024 12:15 Note Text: Abdomen soft non-distended. Will continue to monitor.[facility] 02-19-2024 Nurse Note* Estelle Bird RN - 02/19/2024 12:00 PM EST Abdomen soft non-distended. Will continue to monitor. [facility]11-04-[facility] Nurse Note* Estelle Bird RN - 02/19/2024 12:00 PM EST Abdomen soft non-distended. Will continue to monitor. documented in this encounterElyria [facility] Hospital11-04-2024 History and physical note * [...] Last colonoscopy 06/[address] Park at [facility]. Sedation:Midazolam 5 mg IV, Fentanyl 100 micrograms [...] (FLONASE) 50 mcg/actuation nasal spray Use 1 [place] in the nose once daily. cyanocobalamin (VITAMIN [...] entered by the nurse and reviewed by nc Nursing Notes: Francisca Spann RN 02/16/2024 2:03 [...] edited and updated as necessary. Maddie Bernstein APRN.SCIENTIFIC DATABASE CURATOR UPDATED HISTORY AND PHYSICAL EXAMINATION SERVICE DATE: 02/19/2024 SERVICE TIME: 10:53 AM SENSITIVE EXAMINATION CONSENT: The sensitive examination was discussed with the Patient or Patient's Authorized Steam Shovel Operator. Asapplicable, any other physician, advance practice provider, medical student, or other health professional student that will be observing or involved in the sensitive examination for educational or training purposes was discussed with the Patient or Authorized Steam Shovel Operator. The Patient or Authorized Steam Shovel Operator has agreed to proceed with the [...] DATE: February 19, 2024 TIME: 10:53 AM [facility]-04[facility] History and physical note* Demetri [...] Last colonoscopy 06/[address] Park at [facility]. Sedation:Midazolam 5 mg IV, Fentanyl 100 micrograms [...] (FLONASE) 50 mcg/actuation nasal spray Use 1 [place] in the nose once daily. cyanocobalamin (VITAMIN [...] entered by the nurse and reviewed by nc Nursing Notes: Francisca Spann RN 02/16/2024 2:03 [...] discussed with the Patient or Patient's Authorized Steam Shovel Operator. Asapplicable, any other physician, advance practice provider, medical student, or other health professional student that will be observing or involved in the sensitive examination for educational or training purposes was discussed with the Patient or Authorized Steam Shovel Operator. The Patient or Authorized Steam Shovel Operator has agreed to proceed with the [...] 2024 TIME: 10:53 AM documented in this encounterElyria [facility] Hospital11-01-2024 Telephone encounter Note * Telephone Encounter - Melanie Marcelino - 02/16/2024 2:34 PM EDT 02-19-2024 Colonoscopy concepción [facility] Joyytejolly prep, nurse went over instructions yudy has direct number to contact for any questions or concerns., Instructed patient to arrive at 1045 in [facility]11-01-2024 Miscellaneous Notes* Telephone Encounter - Melanie Marcelino - 02/16/2024 2:34 PM EDT 02-19-2024 Colonoscopy concepción ASC Joyytejolly prep, nurse went over instructions yudy has direct number to contact for any questions or concerns., Instructed patient to arrive at 1045 in ASC documented in this encounterElyria [facility] Hospital11-01-2024 Nurse Note* Francisca Spann, RN [...] N/A Last Colonoscopy: 07/10/2020 Francisca Spann RN [facility]11-01-2024 History of Present illness Narrative* Maddie Bernstein APRN.SCIENTIFIC DATABASE CURATOR - 02/16/2024 2:00 PM EDT HISTORY AND [...] in bowel habits. Maria E denies melena. Mraia E denies bright red blood per rectum. [...] Last colonoscopy 06/[address] Park at [facility]. Sedation:Midazolam 5 mg IV, Fentanyl 100 micrograms [...] (FLONASE) 50 mcg/actuation nasal spray Use 1 [place] in the nose once daily. cyanocobalamin (VITAMIN [...] entered by the nurse and reviewed by nc Nursing Notes: Francisca Spann RN 02/16/2024 2:03 [...] necessary. Maddie Bernstein APRN.BALJIT documented in this encounterElyria Memorial Hospital11-01-2024 NoteHNO ID: [id number] Author: MADDIE BERNSTEIN APRN.CNP Service: ? Author [...] Last colonoscopy 06/[address] Park at [facility]. Sedation:Midazolam 5 mg IV, Fentanyl 100 micrograms [...] (FLONASE) 50 mcg/actuation nasal spray Use 1 [place] in the nose once daily. cyanocobalamin (VITAMIN [...] entered by the nurse and reviewed by nc Nursing Notes: Francisca Spann RN 02/16/2024 2:03 [...] denies ulcers, denies vomiting, (more content not included)...[facility]11-01-2024 Nurse Note* Francisca Spann RN - 02/16/2024 [...] 07/10/2020 Francisca Spann RN documented in this encounterElyria [facility] Hospital05-02-2024 Discharge summary Author Joe Joshua [facility] August 18, 2023 12:45am Note Date/Time August 17, 2023 9:52pm [facility] Medical Records Department [address] [place] [address] Emergency Department Summary 08/17/23 MR#: [id number] Acct: [id number] Name: MARIA E GUTHRIE Rep #:[id number] : 1950 73 From: Joe Sage PCP: Dr. Matt Saul MD Status :REG ER Location: ED HPI History of Present Illness Chief Complaint: Chest Pain Informant: patient Narrative Narrative: Intermittent chest pain initially started overnight twinges in his left chest. This evening it returned having intermittent symptoms. He had 1 stent placed [id number]. Diabetes hypertension hyperlipidemia. No cardiac dysrhythmia history. On baby aspirin. No cough. He had traveled yesterday 8-hour drive and return. Noticed leg swelling no leg cramping no dyspnea. Prior Similar Symptoms: No CVD Risk Factors: Positive for Hypertension, Diabetes and Hypercholesterolemia PE Risk Factors: Positive for Recent [facility] Medical History (Updated 08/18/23 @ 00:[address] Joe Joshua DO) Atherosclerosis of coronary artery of [place]arrow heart without angina pectoris Chest pain Coronary [...] DAILY 02/08/22 [History Last Taken Unknown] omega 5-ups-iny-fish oil 300 mg-1,000 mg capsule (Fish Oil) 2 cap PO BID 02/08/22 [History Last Taken Unknown] allopurinol 300 mg tablet 300 mg PO DAILY 02/08/23 [History Last Taken Unknown] hydrochlorothiazide 25 mg tablet 25 mg PO DAILY 02/08/23 [History Last Taken Unknown] Allergy/AdvReac Type Severity Reaction Status Date / Time Xbeactg-KGU-ZlE Reductase AdvReac Mild myalgias Verified 08/17/23 21:04 Inhibitor [Iadkuqt-Suk-Yaf Reductase Inhibitor] Family History Brother CAD (coronary [...] it in the room however on the cardiac care nurse did not know any rhythm changes. Cardiac [...] clinician: N/A This note was generated with [employer] dictation software. It may contain incorrectwords, spelling, [...] 38.9 L Lymph % (Auto) 49.8 H Leon % (Auto) 10.1 H Eos % (Auto) [...] mg tablet 100 mg PO DAILY omega 3-yys-fvz-fish oil [Fish Oil] 300-1,000 mg capsule 2 [...] muscle); rotate sites Pt gets from the [place] Primary Care Provider: Matt Saul Referrals: Matt [...] your Primary Care Provider. Call [facility] ([phone]) or report to the closest Emergency Room. Call 911 if necessary. 08/18/23 0045 <Electronically signed by Joe Sage> Cosigner Signature (if applicable): CC: Dr. Matt Saul MD ~ Signed [facility] Work Phone: 1(855) [phone] Evaluation note* Diagnosis Onset Date Resolution Status Essential hypertension chron ic History of coronary artery stent placement August 17 chronic Hyperlipidemia chronic [facility] Work Phone: Evaluation note* Diagnosis Onset Date Resolution Status Influenza due to influenza virus, type A, human acute [facility] Work Phone: Evaluation note* Diagnosis History of colonic polyps- Primary Personal history of colonic polyps Screen for colon cancer Special screening for malignant neoplasms, colon documented [facility]* Diagnosis History of colonic polyps Personal history of colonic polyps Screen for colon cancer Special screening for malignant neoplasms, colon documented in this encounter [facility]* Diagnosis History of colonic polyps- Primary Personal history of colonic polyps documented in this encounter [facility] noteNo assessment information availableWooCleveland Clinic [facility] Work Phone: Hospital Discharge instructions Additional Instructions Cardiac workup was negative. Potassium 3.1 orally replaced. Follow-up with your doctor. If symptoms recur and worsens, return to the ED for reevaluation.[facility] Work Phone: Hospital Discharge instructionsAdditional Instructions Date of Dis[facility]: [facility]24[facility] Phone: Reason for referral (narrative)* Outpatient Procedure (Routine) - Authorized Specialty Diagnoses / Procedures Referred By Shauna ross Referred To Contact [facility] Diagnoses History of colonic polyps Screen for colon cancer Procedures COLONOSCOPY SCREENING COLONOSCOPY FLX DX W/COLLJ SPEC WHEN Maddie Lozada APRN.CNP [address] [address] [facility] Disease [address] [address] Referral ID Status Reason Start Date Expiration Date Visits Requested Visits Authorized [id number] Authorized Auto-Generat ed Referral 02/16/2024 02/15/2025 1 1 [facility] for referral (narrative)* Outpatient Procedure (Routine) - Closed Specialty Diagnoses / Procedures Referred By Shauna ross Referred To Contact [facility]EASE [place] Diagnoses History of colonic polyps Screen for colon cancer Procedures COLONOSCOPY SCREENING COLONOSCOPY FLX DX W/COLLJ SPEC WHEN Maddie Lozada APRN.CNP [address] [address] [facility] Disease [place] [id number] Referral ID Status Reason Start Date Expiration Date V isits Requested Visits Authorized [id number] Closed Auto-Generate d Referral 02/16/2024 02/15/2025 1 1 [facility] for referral (narrative)No reason for referral information availableWFort [facility] Work Phone: Reason for visit Narrative* Outpatient Procedure (Routine) - Closed Specialty Diagnoses / Procedures Referred By Shauna ross Referred To Contact [facility] Diagnoses History of colonic polyps Screen for colon cancer Procedures COLONOSCOPY SCREENING COLONOSCOPY FLX DX W/COLLJ SPEC WHEN Maddie Lozada, JENNIFER.SCIENTIFIC DATABASE CURATOR [address] [place] [address] [facility] [place] [address] Referral ID Status Reason Start Date Expiration Date V isits Requested Visits Authorized [id number] Closed Auto-Generate d Referral 02/16/2024 02/15/2025 1 1 [facility] Chief Complaint and Reason for [...] Yes December 29, 2014 1:26pm Power of Carpenters Supervisor Yes December 1:26pm Advance Directive Response Recorded Date/ Time Name of Medical Power of Carpenters Supervisor darby feliciano n August 17, 2023 9:53pm Living Will Yes August 17, 2023 9: 53pm Power of Carpenters Supervisor Yes August 17, 2023 9:53pm Advance Directive Response Recorded Date/ Time Living Will Yes December 29, 2014 2:26pm Power of Carpenters Supervisor Yes December 2:26pm Advance Directive Response Recorded Date/ Time Do you have a Healthcare Power of Carpenters Supervisor? Yes December 23, 2024 2:44pm Summary [...] Primary Care Provider Activ e Bill Murdock DIGESTER COOK, DIGESTER COOK-C Attending Provider Active Team Status: Active Member Role Status Dates Dr. Armond Saul MD Primary Care Provider Activ e Self Referred Attending Provider Active Team Status: Inactive Member Role Status Dates Dr. Armond Saul MD Primary Care Provider Activ e Bill Murdock DIGESTER COOK, DIGESTER COOK-C Attending Provider Active Team Status: Inactive Member Role Status Dates Dr. Armond Saul MD Primary Care Provider, Refe rring Provider Active Xiomara Renee DIGESTER COOK, DIGESTER COOK-C Attending Provider Active Team Status: Active Member [...] Dr. Joe Joshua DO Emergency Provider Active Addictions Recovery Specialist Relationship Specialty Start Date End Date Matt Saul MD [address] [place], [place] [id number] PCP - General Family Medicine 06/30/20 Addictions Recovery Specialist Relationship Specialty Start Date End Date Matt Saul MD [address] [place], [place] [address] PCP - General Family Medicine 06/30/20 Addictions Recovery Specialist Relationship Specialty Start Date End Date Matt Saul MD [address] [place], [place] [address] PCP - General Family Medicine 06/30/20 Addictions Recovery Specialist Relationship Specialty Start Date End Date Matt Saul MD [address] [place], [place] [id number] PCP - General Family Medicine 06/30/20 Team [...] or prosecute any alcohol or drug abuse patient.[facility] HospitalIn the event this information is protected by the Federal Confidentiality of Alcohol and Drug Abuse Patient Records regulations: The Federal rules restrict any use of the information to criminally investigate or prosecute any alcohol or drug abuse patient.[facility] HospitalIn the event this information is protected by the Federal Confidentiality of Alcohol and Drug Abuse Patient Records regulations: The Federal rules restrict any use of the information to criminally investigate or prosecute any alcohol or drug abuse patient.[facility] HospitalIn the event this information is protected by the Federal Confidentiality of Alcohol and Drug Abuse Patient Records regulations: The Federal rules restrict any use of the information to criminally investigate or prosecute any alcohol or drug abuse patient.[facility] Reason for Visit (unrecogniz ed section and content) Reason Comments Consult colonoscopy Reason Comments Follow Up Review colonoscopy r esults. Reason Comments 02-19-2024 Colonscoopy (unrecognized sect ion and content) No Status Records FoundNo Status Records Found INFORMATION SOURCE (unrecogn ized section and content) DATE CREATED AUTHOR 03/19/2024 [facility] DATE CREATED AUTHOR AUTHOR'S ORGANIZ ATION 02/28/2025 [facility] FOR RECORDS PERTAINING TO PATIENTS WHO ARE [...] BE BASED ON THE PRIMARY CLINICAL RECORDS. [employer] provides no warranty or guarantee of the accuracy or completeness of information in this document.
[2025-04-08 08:39] LABS: Hematocrit 35.2 % (40-54); Hemoglobin 11.2 g/dL (13.0-16.5); Mean Corp Hgb Conc 31.8 g/dL (32-36); Mean Corpuscular Volume 84.8 fL (80-94); Mean Platelet Vol. 9.7 fl (6.2-12.0); Platelet Count 382 K/mm3 (150-450); RBC Distribution Width CV 14.1 % (11.6-14.6); RBC Distribution Width SD 43.2 fl (35.1-43.9); Red Blood Count 4.15 M/mm3 (4.6-6.2); White Blood Count 4.2 K/mm3 (4.4-11.0)
[2025-04-08] MEDS: Ceftriaxone 2 GM in 0.9% Normal Saline (50mL MB+) 50 ML IV (08:45)
[2025-04-08 08:51] VITALS: BP 133/75; PULSE 58; RESP 16; TEMP 35.8; O2SAT 96
[2025-04-08 09:10] LABS: AST(SGOT) 23 U/L (<=37); Alanine Aminotransfer ALT/SGPT 20 U/L (<=46); Albumin, Serum 4.0 g/dL (3.4-4.8); Alkaline Phosphatase 71 U/L (40-129); Anion Gap 11 (7-18); BUN 20 mg/dL (4-19); BUN/Creat Ratio 22.2 RATIO (10-20); Bilirubin, Direct 0.10 mg/dL (0.00-0.30); Calcium,Total 10.0 mg/dL (7.6-11.0); Carbon Dioxide 24.2 mmol/L (20.0-29.0); Chloride 102 mmol/L (96-106); Globulin 3.1 g/dL (2.2-4.2); Glucose 161 mg/dL (70-99); Potassium 4.3 mmol/L (3.5-5.1)
[2025-04-08 09:41] VITALS: BP 138/76; PULSE 56; RESP 16; TEMP 35.8; O2SAT 96
== END 2025-04-08 23:59 | disposition home or self-care (01) ==
LOC: MEDOUTP 08:15
PROVIDERS: PCP Family Medicine; Referring Provider Internal Medicine Infectious Disease; Visit Provider Internal Medicine Infectious Disease
DX: M97.31XD Periprosthetic fracture around internal prosthetic right shoulder joint, subsequent encounter (principal)
CPT/HCPCS: 96365; 36592; 80048; 80076; 85027; 85652; A4216; J0696

== ENCOUNTER 2025-04-09 10:38 | Outpatient (CLI) | payer MEDICARE, OTHER, SELFPAY ==
[2025-04-09 10:53] VITALS: BP 124/83; PULSE 61; RESP 16; TEMP 36.3; O2SAT 97
[2025-04-09] MEDS: Ceftriaxone 2 GM in 0.9% Normal Saline (50mL MB+) 50 ML IV (10:55)
--- OUTSIDE RECORDS SUMMARY | 2025-04-09 11:00 | XMS RPT_ITS | CCD ---
Author Organization [facility] Care Team Providers Care Service And Repair Supervisor Name Role Phone FERMIN Blunt, Bailey Keller Unavailable Georgette Oliva Unavailable Unavailable Georgette Tabor Unavailable Unavailable Dr. Armond Saul Primary Care Provider [phone] Dr. Armond Saul Referring Provider Dr. Nathan Purcell Attending Provider [phone] Doyle Sandoval Attending Provider [phone] Collette SILK SCREEN CUTTER, SILK SCREEN CUTTER-Luna Grant Attending Provider Dr. Armond Saul Primary Care Provider [phone] Dr. Armond Saul Referring Provider Víctor SILK SCREEN CUTTER, SILK SCREEN CUTTER-Luna Solano Attending Provider Dr. Nathan Purcell Attending Provider [phone] Nathan Purcell Referring Provider [phone] Nathan Purcell Other Provider Collette SILK SCREEN CUTTER, KHAI-Luna Grant Attending Provider Dr. Matt Sual Primary Care Provider [phone] Dr. Matt Saul Referring Provider EDILSON Driscoll [...] Kg LAZO, Dr. Farley Attending Provider [phone] Kg LAZO, Dr. Farley Primary Care Provider [...] Spring Referring Provider Yang Romero Attending Unavailable Douglasmiami, Matt Referring Unavailable [facility] Primary Care Unavailable Spittle, Major Attending Unavailable Spittle, Major Referring Unavailable Spittle, Major Admitting Unavailable [facility] Primary Care Unavailable Kotsonis, Major F Consulting Unavailable Spittle, Major Referring Unavailable Spittle, Major Attending [facility]available [facility] Unavailable Spittle, Major Referring Unavailable Spittle, Major Attending Unavailable [facility] Care Unavailable Oneyda Solano Attending Unavailable Oneyda Solano Referring Unavailable [facility] Primary Care Unavailable Matt Saul Attending [facility]available [facility] Referring Unavailable [facility], Matt Attending Unavailable [facility] Primary Care Unavailable Spittle, Major Referring Unavailable Seven Grey Attending Unavailable [facility] Primary Care Unavailable Spittle, Major Referring Unavailable Hansel Sultana Attending Unavailable Spittle, Major Admitting Unavailable Hansel Sultana Consulting Unavailable [facility] Care Unavailable Spittle, Major Consulting Unavailable Kotsonis, Major F Consulting Unavailable Kotsonis, Major F Attending Unavailable Nathan Purcell Attending Unavailable [facility] Care Unavailable [facility] Referring Unavailable Allergies Allergy Classification Reported Allergen(s) Allergy Type Date of Onset Reaction(s) Facility (3 sources) atorvastatin drug allergy 5 myalgia [facility] Work Phone: (3 sources) simvastatin drug allergy 3 myalgias [facility] Work Phone: (3 sources) CRESTOR, PRAVACHOL drug allergy 3 myalgias [facility] Work Phone: (7 sources) Daodtby-Lqj-Iyn Reductase Inhibitor Propensity to adverse reactions 2 myalgias [facility] Comment on above: Lipitor, Crestor, Zo cor (5 sources) Simvastatin; Translations: [SIMVASTATIN] Drug Allergy 7 Intolerance [facility] Work Phone: (1 source) OTHER; Translations: [OTHER] Propensity to adverse reactions (disorder) 7 [facility] Repository (1 source) Iirowek-Khp-Epo Reductase Inhibitor Drug allergy (disorder) 5 [facility] Repository Medications Current Medications Medication Drug [...] TABS One tablet by mouth daily ASPIRIN [id number] Shruthi Fajardo RN Start: 06-11-2012 take 1 tablet by keyona th once daily at mealtime Aspirin 81 mg Tab Indications: Coronary atherosclerosis of unspecified type of vessel, cantwell or graft Take 1 tablet by mouth once daily. Take with food. 06/11/2012 Active cholecalciferol 0.025 mg ora l tablet (14 sources) Vitamin D Start: 01-21-2020 take 1 tablet by keyona th once daily Start: 01-21-2020 take 2000 [IU] by mo [facility] once daily Cholecalciferol (Vitamin D3) Active 2000 [...] Active docusate sodium 50 mg / sennosides, mcc 8.6 mg oral tablet (2 sources) Start: 12-24-2024 fluticasone propionate 0.05 mg/actuat metered dose nasal spray (4 sources) Corticosteroid Start: 05-04-2023 fluticasone (FLONASE) 50 mcg/actuation nasal spray Use 1 [place] in the nose once daily. 05/04/2023 Active [...] tablet by mouth twice daily METOPROLOL TARTRATE [id number] Mari Reyes RN oxyCODONE hydrochloride 5 mg oral tablet (2 sources) Opioid Agonist Start: 12-24-2024 take 5-10 mg by mouth every four to six hours as needed for pain polyethylene glycol 3350 297839 mg / potassium chloride 2970 mg / sodium bicarbonate 6740 mg / sodium chloride 5860 mg / sodium sulfate 57551 mg powder for oral solution (1 source) [...] One tablet by mouth daily CLOPIDOGREL BISULFATE [id number] Demetri Patrick MD [place] 4-Ozz-Vgh-Fish Oil (7 sources) Start: 02-08-2022 End: 04-04-2024 [place] 6-Cvx-Ukg-Fish Oil (Fish Oil) 300-1,000 mg capsule Discontinued 2 NMA PO TWICE A DAY February 08, 2022 12:00am April 04, 2024 3:20pm Start: 02-08-2022 take 300-1000 mg by mouth twice daily [place] 4-Rag-Fwj-Fish Oil (Fish Oil) 300-1,000 mg capsule Active 2 CAP PO TWICE A DAY February 08, 2022 12:00am Start: 02-08-2022 take 300-1000 mg by mouth once daily [place] 5-Zfl-Qiz-Fish Oil (Fish Oil) 300-1,000 mg capsule Active [...] by mouth daily OMEGA-3 FATTY ACIDS CAPS [id number] Demetri Patrick MD Start: 06-10-2013 End: 03-31-2015 take 1 tablet by mouth once daily FISH OIL CAPS One tablet by mouth daily OMEGA-3 FATTY ACIDS CAPS [id number] Demetri Patrick MD Start: 03-21-2013 End: 03-25-2013 take 1 capsule by mouth once daily FISH OIL CAPS One capsule by mouth daily OMEGA-3 FATTY ACIDS CAPS [id number] Demetri Patrick MD Start: 03-21-2013 take [address] [facility] once daily FISH OIL CAPS One capsule by mouth daily OMEGA-3 FATTY ACIDS CAPS [id number] Shruthi Fajardo RN FLUoxetine 10 mg oral capsule (6 sources) Serotonin Reuptake Inhibitor Start: 03-21-2013 End: 03-25-2013 take 1 tablet by mouth once daily PROZAC 10 MG CAPS One tablet by mouth daily FLUOXETINE HCL [id number] Demetri Patrick MD Start: 03-21-2013 End: 03-25-2013 take 1 tablet by mouth once daily PROZAC 10 MG CAPS One tablet by mouth daily FLUOXETINE HCL [id number] Demetri Patrick MD gemfibrozil 600 mg oral [...] BY PHYSICIAN FOR PROCEDURAL SEDATION ONLY, Intraprocedure [place]-3 Fatty Acids (3 sources) Start: 06-09-2013 End: 05-11-2017 take 300 mg by mouth once daily [place]-3 Fatty Acids Discontinued 300 MG PO DAILY June 09, 2013 1:00am May 11, 2017 5:09pm Start: 06-09-2013 End: 05-11-2017 take 300 mg by mouth once daily [place]-3 Fatty Acids Discontinued 300 MG PO DAILY June 09, 2013 12:00am May 11, 2017 4:09pm Greenwood-3 Fatty Acids 300 MG capsule (4 sources) Start: 06-09-2013 End: 05-11-2017 take 1 capsule by mouth once daily [place]-3 Fatty Acids 300 MG capsule Discontinued 300 [...] myocardial infarction; Translations: [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 [place] [address] / REHABILITATION SERVICES INITIAL EVALUATION MR#: [id number] Acct: [id number] Name: MARIA E GUTHRIE Rep #: [id number] : 1950 74 From: Cesar Holloway DPT [...] to be FAXED BACK to us at [phone] for Medicare purposes. For Medicare only, by signing this I certify the plan of care. Please let me know if there are questions or concerns regarding this plan of care. Physician Signature: Date:__ 01/07/25 1204 CC: Dr. Matt Saul MD; EDILSON Diaz CLS Signed Normal [facility] Microalb:Creat Ratio,Random URon 01-06-2025 Creatinine [Mass/Vol] 68.50 mg/dL Normal 39.00-259.00 [facility] Comment on above: Order Comment: Order Date: 01/06/25 Order Info: [id number] - MIALB Performed By: #### L 502.0250 #### [facility] [address] [place], [place], [id number] MALB:CREAT 322.6 mg/g CRE High <30 mg/g CRE [facility] Comment on above: Order Comment: Order Date: 01/06/25 Order Info: [id number] - MIALB Performed By: #### L 502.0250 #### [facility] [address] [place], [address] MICROALBUMIN,UR 221.0 mg/L Normal <20 mg/L [facility] Comment on above: Order Comment: Order Date: 01/06/25 Order Info: [id number] - MIALB Performed By: #### L 502.0250 #### [facility] [address] [place], [address] Random urine creatinine collin urement (mass/volume)Ordered By: Matt Saul on 01-06-2025 Creatinine Unsp time (U) [Mass/Vol] 68.50 mg/dL 39.00-259.00 [facility] Urine albumin measurement wi detection limit of 20 mg/L or less (mass/volume)Ordered By: Matt Saul on 01-06-2025 Albumin DL <= 20 mg/L (U) [Mass/Vol] 221.0 mg/L <20 mg/L [facility] Anion gap in Serum or Plasma Ordered By: Major Yi on 12-24-2024 Anion gap [Moles/Vol] 15 mmol/L - [facility] BUN/creatinine ratioOrdered By: Major Yi on 12-24-2024 Urea nitrogen/Creatinine [Mass ratio] 19.8 mg/mg - [facility] Basic Metabolic Profile (BMP )on 12-24-2024 BUN/CRE 19.8 RATIO Normal 02-03 [facility] Comment on above: Performed By: #### L 500.2500, L100.0500 ####[facility] [address] [place], [address] Calcium [Mass/Vol] 9.2 mg/dL Normal 7.6-11.[address] [facility] Comment on above: Performed By: #### L 500.2500, L100.0500 ####[facility] [address] [place], [address] Chloride [Moles/Vol] 100 mmol/L Normal 98-108 [facility] Comment on above: Performed By: #### L 500.2500, L100.0500 ####[facility] [address] [place], [address] CO2 [Moles/Vol] 19.6 mmol/L Low 21.0-32.0 [facility] Comment on above: Performed By: #### L 500.2500, L100.0500 ####[facility] [address] [place], [address] Creatinine [Mass/Vol] 1.01 mg/dL Normal 0.70-1.20 [facility] Comment on above: Performed By: #### L 500.2500, L100.0500 ####[facility] [address] [place], [address] ECRCL 68.29 ml/min Normal 50-250 [facility] Comment on above: Performed By: #### L 500.2500, L100.0500 ####[facility] [address] [place], [address] GAP 15 Normal 5-15 [facility] Comment on above: Performed By: #### L 500.2500, L100.0500 ####[facility] [address] [place], [address] GFR/1.73 sq M.predicted among non-blacks MDRD (S/P/Bld) [Vol rate/Area] 77 mL/min/{1.73_m2} Normal >60 [facility] Comment on above: Result Comment: mL/m in/1.73m2 CKD-EPI Creatinine Equation (2020) Performed By: #### L 500.2500, L100.0500 ####[facility] [address] [place], [address] Glucose [Mass/Vol] 175 mg/dL High 70-[address] [facility] Comment on above: Performed By: #### L 500.2500, L100.0500 ####[facility] [address] [place], [address] Potassium [Moles/Vol] 4.4 mmol/L Normal 3.3-5.1 [facility] Comment on above: Performed By: #### L 500.2500, L100.0500 ####[facility] [address] [place], [address] Sodium [Moles/Vol] 135 mmol/L Normal 133-[address] [facility] Comment on above: Performed By: #### L 500.2500, L100.0500 ####[facility] [address] [place], [address] Urea nitrogen [Mass/Vol] 20 mg/dL High 4-19 [facility] Comment on above: Performed By: #### L 500.2500, L100.0500 ####[facility] [address] [place], [address] Bedside Glucoseon 12-24-2024 FINGERSTICK GLU 306 mg/dL High 74-106 [facility] Comment on above: Result Comment: SUSAN GEMENT OF PATIENT CARE PER NURSING PROTOCOL Performed By: #### L 501.080 #### [facility] [address] [place], [address] FINGERSTICK GLU 188 mg/dL High 74-106 [facility] Comment on above: Result Comment: SUSAN GEMENT OF PATIENT CARE PER NURSING PROTOCOL Performed By: #### L 501.080 #### [facility] [address] [place], [address] CBC-Complete Blood Cnt No Di ffon 12-24-2024 Erythrocyte distribution width (RBC) [Ratio] 13.4 % Normal 11.6-14.6 [facility] Comment on above: Performed By: #### L 500.2500, L100.0500 #### [facility] [address] [place], [address] Hematocrit (Bld) [Volume fraction] 39.7 % Low 40-54 [facility] Comment on above: Performed By: #### L 500.2500, L100.0500 #### [facility] [address] [place], [address] Hemoglobin (Bld) [Mass/Vol] 13.5 g/dL Normal 13.0-16.5 [facility] Comment on above: Performed By: #### L 500.2500, L100.0500 #### [facility] [address] [place], [address] MCH (RBC) [Entitic mass] 29.6 pg Normal 27.0-32.0 [facility] Comment on above: Performed By: #### L 500.2500, L100.0500 #### [facility] [address] [place], [address] MCHC (RBC) [Mass/Vol] 34.0 g/dL Normal 32-36 [facility] Comment on above: Performed By: #### L 500.2500, L100.0500 #### [facility] [address] [place], [address] MCV (RBC) [Entitic vol] 87.1 fL Normal 80-94 [facility] Comment on above: Performed By: #### L 500.2500, L100.0500 #### [facility] [address] [place], [address] Platelet mean volume (Bld) [Entitic vol] 11.7 fL Normal 6.2-12.0 [facility] Comment on above: Performed By: #### L 500.2500, L100.0500 #### [facility] [address] [place], [address] Platelets (Bld) [#/Vol] 174 10*3/uL Normal 150-450 [facility] Comment on above: Performed By: #### L 500.2500, L100.0500 #### [facility] [address] [place], [address] RBC (Bld) [#/Vol] 4.56 10*6/uL Low 4.6-6.2 [facility] Comment on above: Performed By: #### L 500.2500, L100.0500 #### [facility] [address] [place], [address] RDW SD 41.7 fl Normal 35.1-43.9 [facility] Comment on above: Performed By: #### L 500.2500, L100.0500 #### [facility] [address] [place], [address] WBC (Bld) [#/Vol] 10.6 10*3/uL Normal 4.4-11.0 [facility] Comment on above: Performed By: #### L 500.2500, L100.0500 #### [facility] [address] [place], [address] Carbon dioxide, total [Moles /volume] in Central venous bloodOrdered By: Major Yi on 12-24-2024 CO2 [Moles/Vol] 19.6 mmol/L Low 21.0-32.0 [facility] Chloride assayOrdered By: Yumiko Yi on 12-24-2024 Chloride [Moles/Vol] 100 mmol/L 98-108 [facility] Erythrocyte distribution wid th ratioOrdered By: Major Yi on 12-24-2024 Erythrocyte distribution width (RBC) [Ratio] 13.4 % 11.6-14.6 [facility] Erythrocyte distribution wid th standard deviationOrdered By: Major Yi on 12-24-2024 Erythrocyte distribution width (RBC) [Ratio] 41.7 fl 35.1-43.9 [facility] Glomerular filtration rate ( GFR) estimation/1.73 sq m using serum, plasma, or whole bOrdered By: Major Yi on 12-24-2024 GFR/1.73 sq M.predicted among non-blacks MDRD (S/P/Bld) [Vol rate/Area] 77 mL/min/{1.73_m2} >60 [facility] Comment on above: mL/min/1.73m2 CKD-EP I Creatinine Equation (2020) [facility] deOrdered By: Major Yi on 12-24-2024 Glucose [Mass/Vol] 306 mg/dL High 74-[address] [facility] Comment on above: MANAGEMENT OF PATIEN T CARE PER NURSING PROTOCOL Hematocrit Auto (Bld) [Volum e fraction]Ordered By: Major Yi on 12-24-2024 Hematocrit (Bld) [Volume fraction] 39.7 % Low 40-54 [facility] Hemoglobin measurementOrdere d By: Major Yi on 12-24-2024 Hemoglobin (Bld) [Mass/Vol] 13.5 g/dL 13.0-16.5 [facility] MCV (mean corpuscular volume ) determinationOrdered By: Major Yi on 12-24-2024 MCV (RBC) [Entitic vol] 87.1 fL 80-94 [facility] Mean corpuscular hemoglobin (MCH) determinationOrdered By: Major Yi on 12-24-2024 MCH (RBC) [Entitic mass] 29.6 pg 27.0-32.0 [facility] Mean corpuscular hemoglobin concentration (MCHC) determinationOrdered By: Major Yi on 12-24-2024 MCHC (RBC) [Mass/Vol] 34.0 g/dL 32-36 [facility] Mean platelet volume determi nationOrdered By: Major Yi on 12-24-2024 Platelet mean volume (Bld) [Entitic vol] 11.7 fL 6.2-12.0 [facility] Platelet countOrdered By: Yumiko Yi on 12-24-2024 Platelets (Bld) [#/Vol] 174 10*3/uL 150-450 [facility] Potassium measurement (mass/ volume)Ordered By: Major Yi on 12-24-2024 Potassium (Unsp spec) [Mass/Vol] 4.4 mmol/L 3.3-5.1 [facility] RBC Auto (Bld) [#/Vol]Ordere d By: Major Yi on 12-24-2024 RBC (Bld) [#/Vol] 4.56 10*6/uL Low 4.6-6.2 [facility] Serum creatinine measurement (mass/volume)Ordered By: Major Yi on 12-24-2024 Creatinine [Mass/Vol] 1.01 mg/dL 0.70-1.20 [facility] Serum glucose measurement (m ass/volume)Ordered By: Major Yi on 12-24-2024 Glucose [Mass/Vol] 175 mg/dL High 70-[address] [facility] Serum or plasma calcium collin urement (mass/volume)Ordered By: Major Yi on 12-24-2024 Calcium [Mass/Vol] 9.2 mg/dL 7.6-11.[address] [facility] Serum or plasma urea nitroge n measurement (mass/volume)Ordered By: Major Yi on 12-24-2024 Urea nitrogen [Mass/Vol] 20 mg/dL High 4-19 [facility] Sodium levelOrdered By: Moshe Yi on 12-24-2024 Sodium [Moles/Vol] 135 mmol/L 133-[address] [facility] White blood cell (WBC) count Ordered By: Major Yi on 12-24-2024 WBC (Bld) [#/Vol] 10.6 10*3/uL 4.4-11.0 [facility] Bedside Glucoseon 12-23-2024 FINGERSTICK GLU 272 mg/dL High 74-106 [facility] Comment on above: Result Comment: SUSAN GEMENT OF PATIENT CARE PER NURSING PROTOCOL Performed By: #### L 501.080 ####[facility] [address] [place], [address] FINGERSTICK GLU 166 mg/dL High 74-106 [facility] Comment on above: Result Comment: SUSAN GEMENT OF PATIENT CARE PER NURSING PROTOCOL Performed By: #### L 501.080 ####[facility] [address] [place], [address] FINGERSTICK GLU 195 mg/dL High [facility]106 [facility] Comment on above: Result Comment: SUSAN GEMENT OF PATIENT CARE PER NURSING PROTOCOL Performed By: #### L 501.080 #### [facility] [address] [place], [address] Consultation - Hospitaliston 12-23-2024 Consultation - Hospitalist [facility] Medical Records Department [address] [place] [address] Consultation - Hospitalist 12/23/24 1608 MR#: [id number] Acct: [id number] Name: MARIA E GUTHRIE Rep #: [id number] : 1950 74 From: Hansel Sultana DO PCP: Dr. Matt Saul MD Status:ADM BAR Location: [place] [address] Assessment Plan Assessment/Plan (1) Right rotator cuff tear arthropathy: PLAN: Plan Patient is a 74-year-old male who presented to [facility] on 12/23/2024 for planned right shoulder [...] is a 74 M who presented to [facility] on 12/23/2024 for planned orthopedic procedure. [...] No other acute concerns at this time. [facility] Medical History Wears hearing aid Wears glasses Wears partial dentures History of steroid therapy Arthritis Dietary restriction Non-smoker History of echocardiogram History of stress test Cardiology follow-up encounter Diabetes Myocardial infarct Hypertension Osteoarthritis Gout Atherosclerosis of coronary artery of cantwell heart without angina pectoris Hyperlipidemia Home Medications [...] Type Severity Reaction Status Date / Time Bhkumfm-SFV-TbR Reductase AdvReac Mild myalgias Verified 12/23/24 10:26 Inhibitor (Yzanrjz-Hxk-Tkt Reductase Inhibitor) Family History Brother CAD (coronary [...] nourished (more content not included)... [facility] MR/POSTOP.ANEon 12-23-2024 MR/POSTOP.[facility] Medical Records Department [address] [place] [address] Anesthesia Postop Eval I 12/23/24 1332 MR#: [id number] Acct: [id number] Name: MARIA E GUTHRIE Rep #: [id number] : 1950 74 From: Priscilla Willard CRNA PCP: Dr. Matt Saul MD Status:REG [facility] Y Race: C Location: [place] [address] Anesthesia: Postop Eval I Current Vital Signs Temperature: 97 F Pulse Rate: 89 Blood Pressure: 145/87 Respiratory Rate: 18 Pulse Ox: 93 Assessment Airway patent: Yes Spontaneous unlabored respirations: Yes nausea: No Vomiting: No Anesthesia Complication: No Fluid Hydration Crystalloid volume administer (ml): 1,300 Total IV fluid infused: 1,300 Progress Note Anesthesia document: Postop Eval 1 completed: Yes 12/23/241332 Date Priscilla Willard BUNDLE TIER Cosigner Signature: Date CC: Signed [facility] MR/[id number] 12-23-2024 MR/POSTOPAN2 [facility] Medical Records Department [address] [facility] [facility] [place] [address] Anesthesia Postop Eval II 12/23/24 1433 MR#: [id number] Acct: [id number] Name: MARIA E GUTHRIE Rep #: [id number] : 1950 74 From: Osei Lubin MD PCP: Dr. Matt Saul MD Status:ADM BAR Y Race: C [facility] Postop Eval I Sum Postop Eval Completion status Anesthesia document: Postop Eval 1 completed: Yes Anesthesia Postop Eval I Summary Anesthesia Postop Eval I Summary: Anesthesia Postop Eval I: Assessment Summary Airway patent Yes 12/23/24 13:32 BUNDLE TIER.CSIR Spontaneous unlabored Yes 12/23/24 13:32 BUNDLE TIER.CSIR respirations Mental status nausea No 12/23/24 13:32 BUNDLE TIER.CSIR Vomiting No 12/23/24 13:32 BUNDLE TIER.CSIR Anesthesia Postop Eval I: Fluid Summary Crystalloid volume administer 1,300 12/23/24 13:32 BUNDLE TIER.CSIR (ml) Colloids volume administered ( ml) Blood Product volume administered (ml) Total IV fluid infused 1,300 12/23/24 13:32 BUNDLE TIER.CSIR Anesthesia Postop Eval I: Summary Notes Anesthesia Complication No 12/23/24 13:32 BUNDLE TIER.CSIR Anesthesia Complication Comment: Post-operative progress note Anesthesia: Postop Eval II Evaluation Mental status: Awake and Calm Pain Level: 1 nausea: No Vomiting: No Complications Anesthesia Complication: No 12/23/24 1433 Date Osei Lubin MD Cosigner Signature: Date CC: Signed Normal [facility] Magnesiumon 12-23-2024 Magnesium [Mass/Vol] 1.8 mg/dL Normal 1.5-2.2 [facility] Comment on above: Performed By: #### L 501.5200 #### [facility] [place], [address] Magnesium measurement (mass/ volume)Ordered By: Faheem Barroso on 12-23-2024 Magnesium (Unsp spec) [Mass/Vol] 1.8 mg/dL 1.5-2.2 [facility] Operative Reporton Operative Report [facility] Medical Records Department [address] [place] [address] Operative Report 12/23/24 1322 MR#: [id number] Acct: [id number] Name: MARIA E GUTHRIE Rep #: [id number] : 1950 74 From: Major Yi DO PCP: Dr. Matt Saul MD Status:[facility] Location: [place] [address] Operative Report (Standard) Operative Information Date of Procedure: 12/23/24 Pre-Operative Diagnosis: Right shoulder rotator cuff tear arthropathy Post-Operative Diagnosis: Right shoulder rotator cuff tear arthropathy Surgery/Procedure Performed: Right reverse total shoulder arthroplasty marriage and family counselor: Yes Travel Director: Oneyda Solano Tasks completed by printer assistant: Opening closing, Implanting device, Hemostasis: Electrocautery [...] No Description of surgery: Patient arrived to [facility] morning of the procedure and was [...] positioned in the beachchair position. A well-padded head gauge unit operator was applied. The nonoperative extremity was [...] cartilaginous carla (more content not included)... Normal [facility] Shoulder min 2 Viewson 12-23 Shoulder min 2 Views [facility] [address] [place] [address] Shoulder min 2 Views MR#: [id number] Acct: [id number] Name: MARIA E GUTHRIE Rep #: [id number] : 1950 M 74 From: Seven Suárez MD PCP: Dr. Matt Saul MD Status: [facility] Study: Shoulder min 2 Views Date of Exam: 12/23/24 Exam# [id number] Ordering Dr: Major Yi DO PROCEDURE: SHOULDER [...] IMPRESSION: Right shoulder reverse arthroplasty. Reading Location: [place] [address] CC: Dr. Matt Saul MD; Dr. Major Yi DO Cloth Neutralizer: Signed [facility] MR/PAT.ANEon 12-04-2024 MR/PAT.ANE [facility] Department [address] [facility] [place] [address] PAT - Anesthesia 12/04/241946 MR#: [id number] Acct: [id number] Name: MARIA E GUTHRIE Rep #: [id number] : 1950 74 From: Faheem Barroso MD PCP: Dr. 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 Hx Hospitalization No 12/03/24 10:59 Any Problems [...] take am of surgery PONV PONV - hydrodynamics teacher: PONV - hydrodynamics teacher Female No 12/03/24 10:59 HX of Motion Sickness No 12/03/24 10:59 HX of N/V After Surgery No 12/03/24 10:59 Non-Smoker Yes 12/03/24 10:59 Duration of Surgery greater Yes 12/03/24 10:59 than 60 minutes Number of Risk Factors 2 12/03/24 10:59 PONV Score Moderate Risk 12/03/24 10:59 Height Weight Height Weight: Anesthesia: Height Weight Height 6 ft 04/04/24 14:18 Respiratory Assessment Respiratory Assessment - hydrodynamics teacher: Respiratory Tract Infection 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 Hx Respiratory Tract Infection No 12/03/24 10:59 STOP Sleep Apnea STOP Sleep Apnea - hydrodynamics teacher: STOP Sleep Apnea - hydrodynamics teacher Hx Hypertension Yes: CONTROLLED WITH MED 12/03/24 [...] Tobacco Use History Tobacco Use History - hydrodynamics teacher: Tobacco Use History - hydrodynamics teacher Tobacco Use Smoking Status Never smoker 12/03/24 10:59 Hx Tobacco Use No 12/03/24 10:59 Years Smoking Packs Smoked per Day Smoking Cessation Date was within the last 15 years Hx Smoking Cessation Date Hx Smoking Cessation Counseling Hematologic Medial History 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 Normal [facility] 12 Lead EKGon 11-27-2024 12 Lead EKG [facility] [address] [place] [address] 12 Lead EKG 11/27/24 0654 MR#: [id number] Acct: [id number] Name: MARIA E GUTHRIE W Rep #: [id number] : 1950 74 From: Seven Grey MD Attending Dr: Dr. Major Yi DO Status: PRE [facility] Ordering Dr: Major Yi DO Date: 11/27/24 Location: [facility] Sex: M C Admitted: Test [...] MD; Dr. Major Yi DO Signed Normal [facility] Electrocardiogram reportOrde red By: Seven Grey on 11-27-2024 EKG study [facility] [address] [place] [address] 12 Lead EKG 11/27/24 0654 MR#: [id number] Acct: [id number] Name: MARIA E GUTHRIE Rep #:[id number] : 1950 74 From: Seven alcantara MD Attending Dr: Dr. Major Yi DO Status: PRE [facility] Ordering Dr: Major Yi DO Date: 11/27/24 Location: [facility] Sex: M C Admitted: Test [...] block Borderline ECG Confirmed by Seven Grey ([id number]), web editor KARINA GIVENS ([id number]) on 59:43:00 AM Referred By: Major Yi Confirmed By: Seven Grey 11/27/24 0943 Date _ Seven Grey MD CC: Dr. Matt Saul MD; Dr. Major Yi DO ~ Signed [facility] Work Phone: Extremity Upper without Cont raon 11-26-2024 Extremity Upper without Contra [facility] [address] [place] [address] [id number] Extremity Upper without Contra MR#: [id number] Acct: [id number] Name: MARIA E GUTHRIE Rep #: [id number] : 1950 M 74 From: Gonzalez Garcia MD PCP: Dr. Matt Saul MD Status: REG CLI Study: Extremity Upper without Contra Date of Exam: 0 11/26/24 Exam# [id number] Ordering Dr: Major Yi DO PROCEDURE: EXTREMITY [...] Matt Saul MD; Dr. Major Yi DO Cloth Neutralizer: Signed Normal [facility] Urgent Care Visit Reporton 0 07-09-2024 Urgent Care Visit Report [facility] [address], [address] [place] [address] OFFICE VISIT Date of Service: 07/09/24 MR#: [id number] Acct: [id number] Name: MARIA E GUTHRIE Rep #: [id number] : 1950 Provider: EDILSON Salinas Age/Sex: 74/M Location: [facility] Status: Signed Intake Vital Signs 04/04/24 14:18 [...] Reasons: RASH ON BACK Chief Complaint: rash Ict Sales Representative Required: No Is patient in pain?: Yes Allergies Niwivmz-NFO-FbE Reductase Inhibitor (Agdftmw-Jad-Qtn Reductase Inhibitor) Adverse Reaction (Mild, Verified 07/09/24 17:33) myalgias Have you fallen in the past year?: No Nurse's Note: rash to left upper buttock/low back x 3-4 days with burning. 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 No sqgh-qjk-obtfaih products taken to assist. No other associated symptoms and no other alleviating/aggravatin g factors. ROS Const Constitutional: No other (As above) Exam Const General: cooperative, healthy appearing and no acute distress Nutritional Appearance: average body habitus Orientation: alert and awake HENAZ Head: normal to inspection Ears: hearing grossly [...] Rodríguez Signature: Date (if applicable) CC: Normal [facility] Ankle min 3 Viewson 06-19-19 25 Ankle min 3 Views [facility] [address] [place] [address] [phone] Ankle min 3 Views MR#: [id number] Acct: [id number] Name: MARIA E GUTHRIE Rep #: [id number] : 1950 M 74 From: Tenzin Joshua MD PCP: Dr. Matt Saul MD Status: REG CLI Study: Ankle min 3 Views Date of Exam: 06/18/24 Exam# [id number] Ordering Dr: Matt Saul EXAM: XR Right [...] evaluation with CT is recommended. Reading [facility] CC: Dr. Matt Saul MD Cloth Neutralizer: Signed Normal [facility] Foot min 3 Viewson Foot min 3 Views [facility] [address] [place], [place] [id number] Foot min 3 Views MR#: [id number] Acct: [id number] Name: MARIA E GUTHRIE Rep #: [id number] : 1950 M 74 From: Pako de leon MD PCP: Dr. Matt Saul MD Status: REG CLI Study: Foot min 3 Views Date of Exam: 06/18/24 Exam# [id number] Ordering Dr: Matt Saul PROCEDURE: FOOT MIN [...] suggestive of gout. Calcaneal spurs. Reading Location: [id number] CC: Dr. Matt Saul MD Cloth Neutralizer: Signed Normal [facility] Cardiology Visit Reporton Cardiology Visit Report [facility] [address] [place], [place] [address] OFFICE VISIT Date of Service: 04/04/24 MR#: [id number] Acct: [id number] Name: MARIA E GUTHRIE Rep #: [id number] : 1950 Provider: Dr. Nathan Purcell MD Age/Sex: 73/M Location: [facility] Status: Signed HPI HPI History of Present [...] has been put on Praluent by the [facility]. From a cardiac standpoint, the patient [...] Monitor Intake Visit Reasons: 1 Y FU Ict Sales Representative Required: No Accompanied by: Self Is patient in pain?: No Allergies Bpiouuj-AHL-BzS Reductase Inhibitor (Nxzwnsx-Zkd-Mwt Reductase Inhibitor) Adverse Reaction (Mild, Verified 04/04/24 [...] Osteoarthritis Gout Atherosclerosis of coronary artery of cantwell heart without angina pectoris PTSD (post-traumatic stress [...] no acu (more content not included)... Normal [facility] CNOVon 02-26-2024 CN Office Visit (GENSWS ) MARAI E GUTHRIE ([id number]) 1950 Date Time Provider Department 02/26/24 1:00 PM MADDIE BERNSTEIN GENS During your visit today, we recorded the following information about you: Maddie Bernstein APRN.CNP 02/26/2024 1:03 PM Signed FOLLOW UP VISIT - ENDOSCOPY Maria E John Maksim 1950 [id number] REFERRING PHYSICIAN: Matt Saul ([facility]) [address] [place] [address] Maria E Guthrie is a patient I [...] Maddie Bernstein APRN.BALJIT Referring Provider: MATT SAUL [[id number]] Allergies As of Date: 02/26/2024 Noted Allergy Reaction ZOCOR (SIMVASTATIN) 08/15/2006 5 - Intolerance Comments: myalgias Date Reviewed: 02/26/2024 Reviewed by: Maddie Bernstein APRN.MARKETING ANALYTICS ANALYST - Fully Assessed Reason for Visit: Follow Up [171] Cmt: Review colonoscopy results. Primary Visit Diagnosis:History of colonic polyps [Z86.0100] Prescriptions as of 02/26/2024 - alirocumab (PRALUENT) 150 mg/mL pen Inject 150 mg subcutaneously. - losartan (COZAAR) 100 mg tablet Take 100 mg by mouth. - fluticasone (FLONASE) 50 mcg/actuation nasal spray Use 1 [place] in the nose once daily. - cyanocobalamin [...] Status:Closed by MADDIE BERNSTEIN on 02/26/24 Normal [facility] [id number] 02-19-2024 [id number] HNO ID: [id number] Author: ESTELLE BIRD RN Service: ? Author Type: Registered Nurse Type: [id number] Filed: 02/19/2024 12:17 Note Text: The patient received a copy of Colonoscopy discharge instructions that contain information for how to contact the physician who performed the procedure and when to seek medical care. Normal [facility] Colonoscopyon 02-19-2024 [facility] Patient Name: Maria [...] previous diet. Procedure Code(s): --- Professional --- 48755, Colonoscopy, flexible; with biopsy, single or multiple G0500, Moderate sedation services provided by the same physician or other qualified health direct care specialist performing a gastrointestinal endoscopic service that sedation supports, requiring the presence of an independent trained observer to assist in the monitoring of the patient's level of consciousness and physiological status; initial 15 minutes of intra-service time; patient age 5 years or older (additional time may be reported with 98688, as appropriate) Diagnosis Code(s): --- Professional --- Z12.11, Encounter for screening for malignant neoplasm of colon Z86.010, Personal history of colonic polyps K64.8, Other hemorrhoids D12.5, Benign neoplasm of sigmoid colon CPT copyright 2020 [employer]. All rights reserved. The codes documented in this report are preliminary and upon tour leader review may be revised to meet current compliance requirements. Attending Participation: I personally performed the entire procedure. Scope In: 11:39:45 AM Scope Out: 11:54:37 AM MD Demetri Sainz MD 02/19/2024 12:01:02 PM This report has been signed electronically by Demetri Lord MD Number of Addenda: 0 Note Initiated On: 02/19/2024 11:28 AM Estimated Blood Loss: Estimated blood loss was minimal. Normal [facility] Colonoscopy Study observatio non 02-19-2024 [facility] [...] previous diet. Procedure Code(s): --- Professional --- 49307, Colonoscopy, flexible; with biopsy, single or multiple G0500, Moderate sedation services provided by the same physician or other qualified health direct care specialist performing a gastrointestinal endoscopic service that sedation sup (more content not included)... PROVATION [facility] Radiology Study observation (narrative) [facility] HISTORY PHYSICALon HISTORY PHYSICAL HNO ID: [id number] Author: DEMETRI LORD MD Service: General Surgery [...] Last colonoscopy 06/[address] Park at [facility]. Sedation:Midazolam 5 mg IV, Fentanyl 100 micrograms [...] (FLONASE) 50 mcg/actuation nasal spray Use 1 [place] in the nose once daily. cyanocobalamin (VITAMIN [...] entered by the nurse and reviewed by oh Nursing Notes: Francisca Spann RN 02/16/2024 2:03 [...] The pa (more content not included)... Normal [facility] SURGICAL PATHOLOGYon 024 CASE REPORT [facility] Comment on above: Order Comment: Speci men Type: TISSUE SPECIMEN Ordering Facility: [facility] Address: [address] [place] [address] Result Comment: Surg ical Pathology Report Case: [id number] Authorizing Provider: Demetri Lord MD Collected: 02/19/2024 11:51 AM Ordering Location: Ambulatory Surgery Received: 02/19/2024 12:46 PM Pathologist: Tracie Hwang MD Specimen: Colon, Sigmoid, Polyp Performed By: #### S #### [facility] CLIA [id number] [address] [place] [address] [place] FINAL DIAGNOSIS [facility] Comment on above: Order Comment: Speci men Type: TISSUE SPECIMEN Ordering Facility: [facility] Address: [address] [place] [address] Result Comment: A. C olon, sigmoid, polyp, polypectomy -Tubular adenoma Performed By: #### S #### [facility] CLIA [id number] [address] [place] [address] [place] FINAL PERFORMING LAB Normal [facility] Comment on above: Order Comment: Speci men Type: TISSUE SPECIMEN Ordering Facility: [facility] Address: [address] [place] [address] Result Comment: Diag nostic interpretation performed at [facility], [address] [place] [address] CLIA# [id number] [employer] Hand: Karel Singer M.D. Performed By: #### S #### [facility] CLIA [id number] [address] [place] [address] [place] GROSS DESCRIPTION Normal [facility] Comment on above: Order Comment: Speci men Type: TISSUE SPECIMEN Ordering Facility: [facility] Address: [address] [place] [address] Result Comment: A. Luna olon, Sigmoid, Polyp Received in formalin is one piece of simon, soft tissue measuring 0.4 x 0.3 x 0.2 cm. Totally submitted in one cassette. KDK February 19, 2024 7:33 PM Gross examination performed at [facility], [address] [place] [address] Performed By: #### S #### [facility] CLIA [id number] [address] [place] [address] [id number] CNOVon 02-16-2024 CNOV Office Visit (GENSWS ) MARIA E GUTHRIE ([id number]) 1950 Date Time Provider Department 02/16/24 2:00 [...] Last colonoscopy 06/[address] Park at [facility]. Sedation:Midazolam 5 mg IV, Fentanyl 100 micrograms [...] (FLONASE) 50 mcg/actuation nasal spray Use 1 [place] in the nose once daily. cyanocobalamin (VITAMIN [...] entered by the nurse and reviewed by oh Nursing Notes: Francisca Spann RN 02/16/2024 2:03 [...] stent. Respir (more content not included)... [facility] Giovanni [facility]20[facility] MARIA E GUTHRIE ([id number]) 1950 M Date Time Provider Department 02/16/24 MOLLY BERNSTEIN During your visit today, we recorded the following information about you: Melanie Marcelino 02/16/2024 2:37 PM Signed 02-19-2024 Colonoscopy concepción EFREN Cook prep, nurse went over instructions yudy has direct number to contact for any questions or concerns., Instructed patient to arrive at 1045 in [facility] Allergies As of Date: 02/16/2024 Noted Allergy Reaction ZOCOR (SIMVASTATIN) 08/15/2006 5 - Intolerance Comments: myalgias Date Reviewed: 02/16/2024 Reviewed by: Maddie Bernstein APRN.MARKETING ANALYTICS ANALYST - Fully Assessed Reason for Visit: 02-19-2024 Colonscoopy [Other] Prescriptions as of 03/18/2024 - alirocumab (PRALUENT) 150 mg/mL pen Inject 150 mg subcutaneously. - losartan (COZAAR) 100 mg tablet Take 100 mg by mouth. - fluticasone (FLONASE) 50 mcg/actuation nasal spray Use 1 [place] in the nose once daily. - cyanocobalamin [...] Encounter Status:Closed by MELANIE MARCELINO on 03/18/24 [facility] No Panel InformationOrdered By: Joe Joshua on 08-18-2023 Troponin I High Sensitivity 9 pg/mL 3.0-78.0 [facility] Comment on above: Please Note: New [place] t Units and Gender Specific Reference Ranges. For more information see Policy Stat Procedure [place] High Sensitivity Troponin (TNIH) and attachments. Absolute lymphocyte countOrd ered By: Joe Joshua on 08-17-2023 Lymphocytes Auto (Unsp spec) [#/Vol] 2.02 10*3/uL 0.83-4.51 [facility] Automated lymphocyte count a s percentage of total leukocytesOrdered By: Joe Joshua on 08-17-2023 Lymphocytes/100 WBC Auto (Unsp spec) 49.8 % 19-41 [facility] Basophil percentageOrdered B y: Joe Joshua on 08-17-2023 Basophils/100 WBC (Bld) 0.5 % 0-1 [facility] Chloride [Moles/Vol] 101 mmol/L 98-107 [facility] Eosinophils/100 WBC (Bld) 0.7 % 0-5 [facility] Glucose [Mass/Vol] 195 mg/dL 74-[address] [facility] Comment on above: Fasting Glucose resu lt greater than or equal to 126 mg/dL suggests DIABETES MELLITUS per A.D.A. criteria. Hemoglobin (Bld) [Mass/Vol] 15.4 g/dL 13.0-16.5 [facility] Monocytes/100 WBC (Bld) 10.1 % 0-10 [facility] Neutrophils (Bld) [#/Vol] 1.6 10*3/uL 2.0-7.7 [facility] Neutrophils/100 WBC (Bld) 38.9 % 47-70 [facility] Potassium [Moles/Vol] 3.1 mmol/L 3.5-5.1 [facility] Sodium [Moles/Vol] 135 mmol/L 136-[address] [facility] WBC (Bld) [#/Vol] 4.1 10*3/uL 4.4-11.[address] [facility] Determination of erythrocyte mean corpuscular volume (MCV)Ordered By: Joe Joshua on 08-17-2023 MCV (RBC) [Entitic vol] 87.0 fL 80-94 [facility] Erythrocyte distribution wid th ratioOrdered By: Joe Joshua on 08-17-2023 Erythrocyte distribution width (RBC) [Ratio] 13.0 % 11.6-14.6 [facility] Erythrocyte distribution wid th standard deviationOrdered By: Joe Joshua on 08-17-2023 Erythrocyte distribution width (RBC) [Entitic vol] 40.8 fL 35.1-43.9 [facility] Hematocrit Auto (Bld) [Volum e fraction]Ordered By: Joe Joshua on 08-17-2023 Hematocrit (Bld) [Volume fraction] 45.4 % 40-54 [facility] Immature granulocytes/100 WB C Auto (Bld)Ordered By: Joe Joshua on 08-17-2023 Immature granulocytes/100 WBC (Bld) 0.000 % 0.0-0.9 [facility] Comment on above: IG% - Immature Granu locytes (promyelocytes, myelocytes and metamyelocytes) > 1% indicates that a LEFT SHIFT is Present. Laboratory - Chemistry and C hemistry - challengeOrdered By: Joe Joshua on 08-17-2023 CO2 [Moles/Vol] 29.0 mmol/L 21.0-32.0 [facility] Urea nitrogen/Creatinine [Mass ratio] 18.5 mg/mg 10-20 [facility] Laboratory - Hematology and Cell countsOrdered By: Joe Joshua on 08-17-2023 MCH (RBC) [Entitic mass] 29.5 pg 27.0-32.0 [facility] MCHC (RBC) [Mass/Vol] 33.9 g/dL 32-36 [facility] Nucleated RBC/100 WBC (Bld) [Ratio] 0 % 0-5 [facility] Platelet mean volume (Bld) [Entitic vol] 10.7 fL 6.2-12.0 [facility] Platelets (Bld) [#/Vol] 147 10*3/uL 150-450 [facility] No Panel InformationOrdered By: Joe Joshua on 08-17-2023 D-Dimer Quantitative (PE/DVT) 0.44 FEU/ug/m 0.27-0.49 [facility] Comment on above: NORMAL D-Dimer level (<0.50) indicates no DVT or PE. Estimated Creatinine Clearance Calc 72.22 ml/min [facility] Estimated GFR (MDRD) Amer 97 mL/min >60 [facility] Comment on above: GFR Calc Estimated GFR (MDRD) Non-Af Amer 80 mL/min >60 [facility] Comment on above: Non- GFR Calc RBC Auto (Bld) [#/Vol]Ordere d By: Joe Joshua on 08-17-2023 RBC (Bld) [#/Vol] 5.22 10*6/uL 4.6-6.2 [facility] Serum or plasma calcium collin urement (mass/volume)Ordered By: Joe Joshua on 08-17-2023 Calcium [Mass/Vol] 9.4 mg/dL 8.5-10.[address] [facility] Serum or plasma creatinine m easurement (mass/volume)Ordered By: Joe Joshua on 08-17-2023 Creatinine [Mass/Vol] 0.97 mg/dL 0.70-1.30 [facility] Comment on above: The validity of the calculated GFR & GFRAA in patients over 70 years has not been determined. Clinical correlation is essential. Serum or plasma urea nitroge n measurement (mass/volume)Ordered By: Joe Joshua on 08-17-2023 Urea nitrogen [Mass/Vol] 18 mg/dL 7-18 [facility] Thin prep Papanicolaou smear with manual screeningOrdered By: Joe Joshua on 08-17-2023 Thin prep Papanicolaou smear with manual screening 5 5-15 [facility] No Panel Informationon 05-17 Influenza Types A,B Rapid (Clinic) Pos FLU A &Neg FLU B [facility] Office Visiton 11-08-2016 Fall risk assessment No [facility] Work Phone: [phone] Protein mass conc Done [facility] Work Phone: [phone] Chart Maintenanceon 11-07-19 17 Left ventricular Ejection fraction 75 % [facility] Work Phone: Office Visiton 03-29-2016 Dietary management education, guidance, and counseling (procedure) yes Invalid Interpretation Code [facility] Work Phone: [phone] Documentation of current medications (procedure) Done Invalid Interpretation Code [facility] Work Phone: [phone] Tobacco smoking status NHIS Never smoker [facility] Work Phone: [phone] Tobacco use CPHS Never smoker Invalid Interpretation Code [facility] Work Phone: [phone] Clinical Lists Update: [employer]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 Alanine aminotransferase (ALT) 45 U/L [facility] Work Phone: [phone] Albumin 4.1 g/dL [facility] Work Phone: [phone] Alkaline phosphatase (ALP) 51 U/L Invalid Interpretation Code [facility] Work Phone: [phone] ALP enzyme act/vol (Bld) 51 U/L [facility] Work Phone: [phone] Anion gap 16 mmol/L Invalid Interpretation Code [facility] Work Phone: [phone] Anion gap molar conc 16 mmol/L [facility] Work Phone: [phone] Aspartate aminotransferase (AST) 40 U/L [facility] Work Phone: [phone] Bilirubin (total) 0.5 mg/dL [facility] Work Phone: [phone] Calcium 8.9 mg/dL [facility] Work Phone: [phone] Chloride 109 mmol/L High [facility] Work Phone: [phone] Cholesterol 202 mg/dL High [facility] Work Phone: [phone] CO2 19 mmol/L Low [facility] Work Phone: [phone] CO2 ppres (BldV) 19 mmol/L Low [facility] Work Phone: [phone] Creatinine 1.0 mg/dL [facility] Work Phone: [phone] Erythrocyte distribution width Ratio (RBC) 13.6 % [facility] Work Phone: [phone] Erythrocytes (RBC) 5.69 10*6/uL Invalid Interpretation Code [facility] Work Phone: [phone] Glucose 117 mg/dL Invalid Interpretation Code [facility] Work Phone: [phone] Glucose mass conc 117 mg/dL [facility] Work Phone: [phone] HbA1c 6.5 % High [facility] Work Phone: [phone] HDL Cholesterol 45 mg/dL [facility] Work Phone: [phone] Hematocrit (HCT) 49.1 % Invalid Interpretation Code [facility] Work Phone: [phone] Hematocrit Volume Fraction (Bld) 49.1 % [facility] Work Phone: [phone] Hemoglobin (HGB) 16.6 g/dL [facility] Work Phone: [phone] LDL Cholesterol 130 mg/dL High [facility] Work Phone: [phone] Magnesium 2.3 mg/dL [facility] Work Phone: [phone] MCH 29.2 pg Invalid Interpretation Code [facility] Work Phone: [phone] MCH Entitic mass (RBC) 29.2 pg [facility] Work Phone: [phone] MCHC 33.8 g/dL Invalid Interpretation Code [facility] Work Phone: [phone] MCHC mass conc (RBC) 33.8 g/dL [facility] Work Phone: [phone] MCV 86.3 fL Invalid Interpretation Code [facility] Work Phone: [phone] MCV Entitic volume (RBC) 86.3 fL [facility] Work Phone: [phone] Platelets 245 10*3/mm3 Invalid Interpretation Code [facility] Work Phone: [phone] Platelets #/vol (Bld) 245 10*3/mm3 [facility] Work Phone: [phone] Potassium 3.9 mmol/L [facility] Work Phone: [phone] Protein 7.3 g/dL [facility] Work Phone: [phone] RBC #/vol (Bld) 5.69 10*6/uL [facility] Work Phone: [phone] RDW-CA 13.6 % Invalid Interpretation Code [facility] Work Phone: [phone] Sodium 140 mmol/L [facility] Work Phone: [phone] Thyroid stimulating hormone (TSH) 1.23 u[iU]/mL [facility] Work Phone: [phone] Thyroxine (T4) free 1.05 ng/dL [facility] Work Phone: [phone] Triglyceride 272 mg/dL High [facility] Work Phone: [phone] Urea nitrogen 19 mg/dL [facility] Work Phone: [phone] WBC #/vol (Bld) 4.84 10*3/uL [facility] Work Phone: [phone] WBC (Leukocytes) 4.84 10*3/uL Invalid Interpretation Code [facility] Work Phone: [phone] Lab Report: Lipid Profileon 04-08-2015 very low density lipoproteins 35 mg/dL 5-40 [facility] Work Phone: [phone] Lab Report: Liver Profileon 04-08-2015 Bilirubin (direct) 0.12 mg/dL 0.00-0.30 [facility] Work Phone: [phone] Globulin 3.2 g/dL Invalid Interpretation Code 2.3-3.5 [facility] Work Phone: [phone] Globulin mass conc (S) 3.2 g/dL 2.3-3.5 [facility] Work Phone: [phone] Clinical Lists 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 Globulin 3.0 g/dL Invalid Interpretation Code [facility] Work Phone: [phone] Globulin mass conc (S) 3.0 g/dL [facility] Work Phone: [phone] External Other: Preferred Me thod of Contacton 04-02-2014 methcontact secmsg [facility] Work Phone: [phone] Patient's prefered method of contact secmsg Invalid Interpretation Code [facility] Work Phone: [phone] Lab Report: Liver Profileon 04-02-2014 ALK P 49 U/L Critically low 50-136 [facility] Work Phone: [phone] GE use only - for [employer] import when terms are not otherwise specified 49 U/L Critically low 50-136 [facility] Work Phone: [phone] Office Visiton 03-31-2014 cardiac risk group C [facility] Work Phone: [phone] General cardiovascular disease 10Y risk [#] [place] [facility] [facility] Work Phone: Vital Signs Date Time Vital Sign Value Performing Clinician Alexa bedoya 12-24-2024 08:33-0400 Heart rate 58 /min Dr. Matt Saul MD Work Phone: [facility] 12-24-2024 08:26-0400 Body temperature 97.6 [degF] Dr. Matt Saul MD Work Phone: [facility] 12-24-2024 08:26-0400 Diastolic blood pressure 71 mm[Hg] Dr. Matt Saul MD Work Phone: 5(162)121-142878 [place] [address] 12-24-2024 08:26-0400 Respiratory rate 18 /min Dr. Matt Saul MD Work Phone: 6(360)569-825729 [address] 12-24-2024 08:26-0400 SaO2% (BldA) [Mass fraction] 95 % Dr. Matt Saul MD Work Phone: 3(202)645-420429 [address] 12-24-2024 08:26-0400 Systolic blood pressure 128 mm[Hg] Dr. Matt Saul MD Work Phone: 0(883)914-493429 [address] 12-23-2024 18:43-0400 Inhaled oxygen flow rate 2 L/min Dr. Matt Saul MD Work Phone: [facility] 12-23-2024 14:44-0400 Body height 182.[address] Matt Saul MD Work Phone: 5(551)767-927329 [address] 12-23-2024 14:44-0400 Body mass index (BMI) [Ratio] 26.9 kg/m2 Dr. Matt Saul MD Work Phone: 7(331)049-946778 [place] [address] 12-23-2024 14:44-0400 Body weight [address] Matt Saul MD Work Phone: 0(669)076-752240 [place] [address] 04-04-2024 14:18-0500 Body height 182.[address] Matt Saul MD Work Phone: 1(371)206-603129 [address] 04-04-2024 14:18-0500 Body mass index (BMI) [Ratio] 27.2 kg/m2 Dr. Matt Saul MD Work Phone: [facility] 04-04-2024 14:18-0500 Body weight 91.[address] Matt Saul MD Work Phone: [facility] 04-04-2024 14:18-0500 Diastolic blood pressure 90 mm[Hg] Dr. Matt Saul MD Work Phone: [facility] 04-04-2024 14:18-0500 Heart rate 69 /min Dr. Matt Saul MD Work Phone: [facility] 04-04-2024 14:18-0500 Respiratory rate 16 /min Dr. Matt Saul MD Work Phone: [facility] 04-04-2024 14:18-0500 Systolic blood pressure 132 mm[Hg] Dr. Matt Saul MD Work Phone: [facility] 02-19-2024 12:20-0500 Diastolic blood pressure 72 mm[Hg] Demetri Lord MD Work Phone: [facility] 02-19-2024 12:20-0500 Heart rate 55 /min Demetri Lord MD Work Phone: [facility] 02-19-2024 12:20-0500 Respiratory rate 16 /min Demetri Lord MD Work Phone: [facility] 02-19-2024 12:20-0500 SaO2% (BldA) [Mass fraction] 95 % Demetri Lord MD Work Phone: [facility] 02-19-2024 12:20-0500 Systolic blood pressure 115 mm[Hg] Demetri Lord MD Work Phone: [facility] 02-19-2024 10:40-0500 Body mass index (BMI) [Ratio] 27.18 kg/m2 Demetri Lord MD Work Phone: [facility] 02-19-2024 10:40-0500 Body temperature 98.4 [degF] Demetri Lord MD Work Phone: [facility] 02-19-2024 10:40-0500 Body weight 90.9 kg Demetri Lord MD Work Phone: [facility] 02-16-2024 14:03-0400 Body height 182.9 cm Maddie Jakob COMMISSIONED FIRE OFFICER.MARKETING ANALYTICS ANALYST Work Phone: [facility] 02-16-2024 14:03-0400 Body mass index (BMI) [Ratio] 27.18 kg/m2 Maddie Jakob COMMISSIONED FIRE OFFICER.MARKETING ANALYTICS ANALYST Work Phone: [facility] 02-16-2024 14:03-0400 Body temperature 97.81 [degF] Maddie Jakob COMMISSIONED FIRE OFFICER.MARKETING ANALYTICS ANALYST Work Phone: [facility] 02-16-2024 14:03-0400 Body weight 90.9 kg Maddie Jakob COMMISSIONED FIRE OFFICER.MARKETING ANALYTICS ANALYST Work Phone: [facility] 02-16-2024 14:03-0400 Diastolic blood pressure 82 mm[Hg] Maddie Jakob COMMISSIONED FIRE OFFICER.MARKETING ANALYTICS ANALYST Work Phone: [facility] 02-16-2024 14:03-0400 Heart rate 80 /min Maddie Jakob COMMISSIONED FIRE OFFICER.MARKETING ANALYTICS ANALYST Work Phone: [facility] 02-16-2024 14:03-0400 SaO2% (BldA) [Mass fraction] 92 % Maddie Jakob COMMISSIONED FIRE OFFICER.MARKETING ANALYTICS ANALYST Work Phone: [facility] 02-16-2024 14:03-0400 Systolic blood pressure 138 mm[Hg] Maddie Jakob COMMISSIONED FIRE OFFICER.MARKETING ANALYTICS ANALYST Work Phone: [facility] 08-18-2023 01:00-0400 Body temperature 98.5 [degF] Dr. Matt Saul Work Phone: [facility] 08-18-2023 01:00-0400 Diastolic blood pressure 91 mm[Hg] Dr. Matt Saul Work Phone: [facility] 08-18-2023 01:00-0400 Heart rate 59 /min Dr. Matt Saul Work Phone: [facility] 08-18-2023 01:00-0400 Respiratory rate 18 /min Dr. Matt Saul Work Phone: 4(353)776-530529 [address] 08-18-2023 01:00-0400 SaO2% (BldA) [Mass fraction] 98 % Dr. Matt Saul Work Phone: [facility] 08-18-2023 01:00-0400 Systolic blood pressure 148 mm[Hg] Dr. Matt Saul Work Phone: 6(932)078-988040 [place] [address] 08-17-2023 21:03-0400 Body height 182.[address] Matt Saul Work Phone: 5(680)[phone] [place] [address] 08-17-2023 21:03-0400 Body mass index (BMI) [Ratio] 27.7 kg/m2 Dr. Matt Saul Work Phone: 0(317)649-399729 [address] 08-17-2023 21:03-0400 Body weight 92.[address] Matt Saul Work Phone: 3(877)464-261478 [place] [address] 05-17-2023 11:30-0500 Body mass index (BMI) [Ratio] 28.2 kg/m2 Dr. Matt Saul Work Phone: 4(825)077-882240 [place] [address] 05-17-2023 11:30-0500 Body temperature 97.8 [degF] Dr. Matt Saul Work Phone: 7(895)487-121340 [place] [address] 05-17-2023 11:30-0500 Body weight 94.[address] Matt Saul Work Phone: 7(683)724-590878 [place] [address] 05-17-2023 11:30-0500 Diastolic blood pressure 76 mm[Hg] Dr. Matt Saul Work Phone: 5(368)395-355529 [address] 05-17-2023 11:30-0500 Heart rate 71 /min Dr. Matt Saul Work Phone: [facility] 05-17-2023 11:30-0500 Respiratory rate 16 /min Dr. Matt Saul Work Phone: [facility] 05-17-2023 11:30-0500 SaO2% (BldA) [Mass fraction] 96 % Dr. Matt Saul Work Phone: [facility] 05-17-2023 11:30-0500 Systolic blood pressure 140 mm[Hg] Dr. Matt Saul Work Phone: [facility] 02-08-2023 13:58-0400 Body height 182.[address] Armond Saul Work Phone: 6(199)917-600029 [address] 02-08-2022 13:51-0400 Body height 182.[address] Armond Saul Work Phone: 9(648)477-337529 [address] 02-08-2022 13:51-0400 Body mass index (BMI) [Ratio] 26.9 kg/m2 Dr. Armond Saul Work Phone: 2(454)630-265240 [place] [address] 02-08-2022 13:51-0400 Body mass index (BMI) [Ratio] 28 kg/m2 Dr. Armond Saul Work Phone: [facility] 02-08-2022 13:51-0400 Body weight 90.[address] Armond Saul Work Phone: [facility] 02-08-2022 13:51-0400 Body weight 93.[address] Armond Saul Work Phone: [facility] 02-08-2022 13:51-0400 Diastolic blood pressure 91 mm[Hg] Dr. Armond Saul Work Phone: [facility] 02-08-2022 13:51-0400 Diastolic blood pressure 84 mm[Hg] Dr. Armond Saul Work Phone: [facility] 02-08-2022 13:51-0400 Heart rate 70 /min Dr. Armond Saul Work Phone: [facility] 02-08-2022 13:51-0400 Heart rate 67 /min Dr. Armond Saul Work Phone: [facility] 02-08-2022 13:51-0400 Respiratory rate 16 /min Dr. Armond Saul Work Phone: [facility] 02-08-2022 13:51-0400 Respiratory rate 18 /min Dr. Armond Saul Work Phone: [facility] 02-08-2022 13:51-0400 SaO2% (BldA) [Mass fraction] 95 % Dr. Armond Saul Work Phone: [facility] 02-08-2022 13:51-0400 SaO2% (BldA) [Mass fraction] 94 % Dr. Armond Saul Work Phone: [facility] 02-08-2022 13:51-0400 Systolic blood pressure 155 mm[Hg] Dr. Armond Saul Work Phone: [facility] 02-08-2022 13:51-0400 Systolic blood pressure 132 mm[Hg] Dr. Armond Saul Work Phone: [facility] 11-08-2016 13:10-0400 BMI (Body Mass Index) 28.87 kg/m2 [facility] Work Phone: 11-08-2016 13:10-0400 BP Diastolic 68 mm[Hg] [facility] Work Phone: 11-08-2016 13:10-0400 BP Systolic 130 mm[Hg] [facility] Work Phone: 11-08-2016 13:10-0400 Height 180.[address] [facility] Work Phone: 11-08-2016 13:10-0400 Pulse (Heart Rate) 58 /min [facility] Work Phone: 11-08-2016 13:10-0400 Respiratory [...] Provider Facility Start: 02-26-2025 ambulatory Oneyda Solano Facility:[facility] Start: 01-15-2025 Registered Recurring Oneyda Solano PA -Physical Therapy Work Phone: Start: 01-06-2025 End: 01-06-[address] Matt Saul MD Work Phone: -Laboratory Specimen Start: 01-06-2025 End: 01-06-[address] Matt Saul MD -Laboratory Specimen Work Phone: Start: 01-06-2025 End: 01-06-2025 ambulatory Matt Saul Facility:[facility] Start: 12-26-2024 Encounter for other preprocedural examination [facility] Start: 12-26-2024 Encounter for preprocedural cardiovascular examination [facility] Start: 12-24-2024 Non-patient / Non-visit Dr. Yumiko Carrillo MD -[facility] Work Phone: Start: 12-23-2024 Non-patient / Non-visit [facility] Mckeon [facility] -[facility] Work Phone: Start: 12-23-2024 End: 12-24-2024 ambulatory Major Yi Facility:[facility] Start: 12-23-2024 End: 12-24-2024 Evaluation and management of inpatient Dr. Major Yi DO -Medical Surgical 3 Work Phone: Start: 12-23-2024 End: 12-24-[address] Matt Saul MD Work Phone: -Medical Surgical 3 Start: 11-27-2024 ambulatory Major Carrascoi ty:[facility] Start: 11-27-2024 Non-patient / Non-visit Dr. Seven Grey MD -[facility] Work Phone: Start: 11-26-2024 End: 11-26-[address] Matt Saul MD Work Phone: -Cat Scan [facility] Start: 11-26-2024 End: 11-26-[address] Major Yi DO -Cat Scan [facility] Work Phone: Start: 11-26-2024 End: 11-26-2024 ambulatory Major Yi Facility:[facility] Start: 07-09-2024 End: 07-09-2024 ambulatory Yang WAGGONER [facility] Start: 06-18-2024 End: 06-18-[address] Matt Saul MD Work Phone: [facility] Work Phone: Start: 06-18-2024 End: 06-18-[address] Matt Saul MD -Radiology, [place] Work Phone: Start: 06-18-2024 End: 06-18-2024 ambulatory Matt Colemiami Facility:[facility] Start: 04-04-2024 End: 04-04-[address] Nathan Purcell MD -[facility] Work Phone: Start: 04-04-2024 End: 04-04-2024 ambulatory Nathan Purcell [facility] Start: 02-26-2024 End: 02-26-2024 ambulatory [facility] Facility:[facility] Start: 02-26-2024 End: 02-26-2024 Patient encounter procedure Maddie Bernstein APRN.MARKETING ANALYTICS ANALYST Work Phone: General Surgery Comment on above: History of colonic p olyps (Primary Dx) Start: 02-19-2024 End: 02-19-2024 ambulatory [facility] Facility:[facility] Start: 02-19-2024 End: 02-19-2024 Subsequent hospital visit by physician Demetri Lord MD Work Phone: Ambulatory Surgery Comment on above: History of colonic p olyps [Z86.0100] Start: 02-16-2024 End: 02-16-2024 ambulatory [facility] Facility:[facility] Start: 02-16-2024 End: 02-16-2024 Patient encounter procedure Maddie Bernstein APRN.MARKETING ANALYTICS ANALYST Work Phone: General Surgery Comment on above: History of colonic p olyps (Primary Dx); Screen for colon cancer Start: 02-16-2024 End: 03-18-2024 Telephone encounter Molly VEGA General Surgery Comment on above: 02-19-2024 [facility] Start: 08-17-2023 End: 08-18-2023 Emergency department patient visit Dr. Matt Saul Work Phone: [facility]-Emergency Department Work Phone: Start: 05-17-2023 End: 05-17-[address] Matt Saul Work Phone: [facility] Work Phone: Start: 03-15-2023 Non-patient / Non-visit Dr. Jabier Saul Work Phone: [facility] Work Phone: Start: 03-14-2023 Non-patient / Non-visit Dr. Jabier Saul Work Phone: [facility] Start: 03-14-2023 End: 03-14-[address] Armond Saul Work Phone: [facility] Work Phone: Start: 03-14-2023 End: 03-14-[address] Armond Saul Work Phone: [facility] Work Phone: Start: 02-08-2023 End: 02-08-[address] Armond Saul Work Phone: [facility] Work Phone: Start: 05-20-2022 Non-patient / Non-visit Dr. Jabier Saul Work Phone: [facility] Start: 05-17-2022 Non-patient / Non-visit Dr. Jabier Saul Work Phone: [facility] Start: 05-17-2022 End: 05-17-[address] Armond Saul Work Phone: [facility] Work Phone: Start: 05-17-2022 End: 05-17-[address] [facility] Start: 05-04-[address] Rowdy Saul Work Phone[facility] Start: 02-08-2022 End: 02-08-[address] Armond Saul Work Phone: [facility] Procedures Date Procedure Procedure Detail [...] dx w/collj spec when pfrmd Maddie Bernstein COMMISSIONED FIRE OFFICER.MARKETING ANALYTICS ANALYST Work Phone: Start: 02-19-2024 Colonoscopy Demetri abernathy [...] - S marciano or Plasma Maddie Bernstein APRN.MARKETING ANALYTICS ANALYST Work Phone: Start: 03-31-2014 End: 04-02-2014 *Hepatic [...] P,Tdap,Td Vaccine (4 - Td or Tdap) [facility] Start: 02-18-2027 Screening for malign ant neoplasm of colon [facility] Start: 12-24-2024 Patient discharge [facility] Start: 12-23-2024 Care regimes management [facility] Start: 12-23-2024 Notification of physician [facility] Start: 12-23-2024 [facility] Start: 12-23-2024 Application of intermittent pneumatic compression device [facility] Start: 12-23-2024 Following clinical p athway protocol [facility] Start: 12-23-2024 Anes arthroscopic to bernard shoulder replacement ANESTH SHOULDER REPLACEMENT [facility] Start: 12-23-2024 Prosthetic total arthroplasty of left shoulder RECONSTRUCT SHOULDER JOINT [facility] Start: 12-23-2024 Admission procedure [facility] Start: 12-23-2024 Ambulation therapy management [facility] Start: 12-23-2024 Application of device [facility] Start: 12-23-2024 Assessment of risk o f venous thromboembolism [facility] Start: 12-23-2024 Catheterization of vein [facility] Start: 12-23-2024 Following clinical p athway protocol [facility] Start: 12-23-2024 Incentive spirometry [facility] Start: 12-23-2024 Introduction of urin angeline catheter [facility] Start: 12-23-2024 Measuring intake and output [facility] Start: 12-23-2024 Neurovascular assessment [facility] Start: 12-23-2024 Patient education [facility] Start: 12-23-2024 Procedure discontinued [facility] Start: 12-23-2024 Provision of activit y privileges [facility] Start: 12-23-2024 Recommendation to co ritika with treatment [facility] Start: 12-23-2024 Referral to occupati onal therapist [facility] Start: 12-23-2024 Vital signs measurements [facility] Start: 12-23-2024 Wound care [facility] Start: 12-23-2024 [facility] Start: 12-23-2024 Consultation [facility] Start: 02-26-2024 End: 02-26-2024 Patient encounter procedure 02/26/2024 1:00 PM EST Office Visit General Surgery [address] [place] [address] Maddie Bernstein APRN.MARKETING ANALYTICS ANALYST [address] [place] [address] Colonsocopy follow up 02-19-2024 General Surgery Comment on above: Colonsocopy follow u p 02-19-2024 Start: 02-19-2024 End: 02-19-2024 Patient encounter procedure 02/19/2024 11:45 AM EST Appointment Ambulatory Surgery [address] [place] [address] Demetri Lord MD [address] [place] [address] Ambulatory Surgery Start: 08-18-2023 [facility] Start: 08-17-2023 [facility] Start: 07-01-2023 Screening for malign ant neoplasm of colon [facility] Start: 04-17-2023 Advance Directive Discussion Advance Directive Discussion [facility] Start: 03-21-2022 Diabetes Screening Diabetes Screenin g [facility] Start: 11-15-2021 Pneumococcal Vaccine : 65+ (2 of 2 - PPSV23 or PCV20) Pneumococcal Vaccine: 65+ (2 of 2 - PPSV23 or PCV20) [facility] Start: 04-02-2019 Lipid panel Lipid Screening [facility] Start: 05-11-2017 End: 05-11-2017 Appointment Appointment [facility] Work Phone: Start: 11-08-2016 End: 11-08-2016 Appointment Appointment [facility] Work Phone: Start: 11-08-2016 End: 11-08-2016 *Hepatic Function Panel *Hepatic Function Panel [facility] Work Phone: Start: 11-08-2016 End: 11-08-2016 GERRY GARRETT [facility] Work Phone: Start: 11-08-2016 End: 11-08-2016 Follow Up Appt 6 months Follow Up Appt 6 months [facility] Work Phone: Start: 11-08-2016 End: 11-08-2016 Lipid 1996 panel *Lipid Profile CC PCP [facility] Work Phone: Start: 10-19-2016 End: 11-08-2016 *Hepatic Function Panel *Hepatic Function Panel [facility] Work Phone: Start: 10-19-2016 [...] Lipid panel [AGGREGATE] *Lipid Profile CC PCP [facility] Work Phone: Start: 03-31-2015 End: 04-08-2015 *Hepatic Function Panel *Hepatic Function Panel [facility] Work Phone: Start: 03-31-2015 End: 03-31-2015 GERRY GARRETT [facility] Work Phone: Start: 03-31-2015 End: 03-31-2015 Follow Up Appt 1 year Follow Up Appt 1 year [facility] Work Phone: Start: 03-31-2015 End: 04-08-2015 Lipid panel [AGGREGATE] *Lipid Profile CC PCP [facility] Work Phone: Start: 12-29-2014 End: 12-30-2014 Stress Echocardiogram (treadmill) Stress Echocardiogram (treadmill) [facility] Work Phone: Start: 03-31-2014 End: 04-02-2014 *Hepatic Function Panel *Hepatic Function Panel [facility] Work Phone: Start: 03-31-2014 End: 03-31-2014 GERRY GERRY [facility] Work Phone: Start: 03-31-2014 End: 03-31-2014 Follow Up Appt 1 year Follow Up Appt 1 year [facility] Work Phone: Start: 03-31-2014 End: 04-02-2014 Lipid panel [AGGREGATE] *Lipid Profile CC PCP [facility] Work Phone: Start: 03-31-2014 End: 03-31-2014 Stress Echocardiogram (treadmill) Stress Echocardiogram (treadmill) [facility] Work Phone: Start: 06-10-2013 End: 06-10-2013 GERRY GERRY [facility] Work Phone: Start: 06-10-2013 End: 06-10-2013 Follow Up Appt 1 year Follow Up Appt 1 year [facility] Work Phone: Start: 03-25-2013 End: 03-25-2013 GERRY GERRY [facility] Work Phone: Start: 03-25-2013 End: 03-25-2013 Follow Up Appt 1 year Follow Up Appt 1 year [facility] Work Phone: Start: 08-07-2005 Hepatitis B surface antibody level LDL Cholesterol [facility] Start: 1993 Screening for malign ant neoplasm of colon [facility] Start: 1966 Annual PCP Team Cryptologic Technician kavin Disease Visit Annual PCP Team Chronic Disease Visit [facility] Start: 1966 BP Controlled (<130/80) BP Controlle d (<130/80) [facility] Start: 1966 Depression Screening Depression Scre ening [facility] Start: 1966 Hepatitis C screening Hepatitis C Sc [facility] Patient Education [facility] Work Phone: Patient referral [facility] Work Phone: End: 02-15-2025 Screening colonoscopy COLONOSCOPY SCREENING Endoscopy Routine History of colonic polyps Screen for colon cancer 1 Occurrences starting 02/16/2024 until 02/15/2025 [facility] Work Phone: Comment on above: 1 Occurrences starti ng 02/16/2024 until 02/15/2025 SURGICAL PATHOLOGY [facility] Work Phone: Comment on above: Release Upon Orderin g for 1 Occurrences starting 02/19/2024, 1 completed Immunizations Immunization Date Immunization Notes Care Provider Fa cility 07-13-2020 Covid (Moderna) Dr. Selena Saul Work Phone: [facility] 06-15-2020 Kia (Moderna) Dr. Selena Saul Work Phone: [facility] 01-30-2014 influenza, seasonal, injectable Maddie Jakob COMMISSIONED FIRE OFFICER.MARKETING ANALYTICS ANALYST Work Phone: [facility] Work Phone: 02-09-2013 influenza virus vaccine, unspecified formulation Maddie Jakob COMMISSIONED FIRE OFFICER.MARKETING ANALYTICS ANALYST Work Phone: [facility] 06-11-2012 tetanus toxoid, reduced diphtheria toxoid, and acellular pertussis vaccine, adsorbed Maddie Jakob COMMISSIONED FIRE OFFICER.MARKETING ANALYTICS ANALYST Work Phone: [facility] 06-11-2012 zoster vaccine, live Kimberl ey Jakob COMMISSIONED FIRE OFFICER.MARKETING ANALYTICS ANALYST Work Phone: [facility] 02-05-2011 influenza virus vaccine, unspecified formulation Maddie Jakob COMMISSIONED FIRE OFFICER.MARKETING ANALYTICS ANALYST Work Phone: [facility] 01-26-2010 influenza virus vaccine, unspecified formulation Maddie Jakob COMMISSIONED FIRE OFFICER.MARKETING ANALYTICS ANALYST Work Phone: [facility] Work Phone: 01-21-2009 influenza virus vaccine, unspecified formulation Maddie Jakob COMMISSIONED FIRE OFFICER.MARKETING ANALYTICS ANALYST Work Phone: [facility] Work Phone: 02-21-2008 influenza virus vaccine, unspecified formulation Maddie Jakob COMMISSIONED FIRE OFFICER.MARKETING ANALYTICS ANALYST Work Phone: [facility] Work Phone: 02-20-2007 influenza virus vaccine, unspecified formulation Maddie Jakob HALL Work Phone: [facility] 07-21-2003 tetanus and diphther ia toxoids, adsorbed, preservative free, for adult use (2 Lf of tetanus toxoid and 2 Lf of diphtheria toxoid) Maddie Jakob HALL Work Phone: [facility] Payers Date Payer Category Payer Self-pay [id number] 2017 Private Health Insurance AETNA S UPPLEMENT AETNA MEDICARE SUPPLEMENT [id number] 2017-Present [phone] [address] [address] [place] [address] Indemnity [id number] 2017 Private Health Insurance [facility] [id number] 2014 Unknown [id number] 2013 Medicare MEDICARE MEDICAR E A AND B [id number] 2013-Present [phone] [address] [address] [place] [address] Medicare [id number] 2013 Medicare [id number] Unknown [id number] Unknown [id number] [id number] Unknown [id number]. 2.462 Unknown [id number]. 2.462 Unknown [id number] [id number]. 2.462 Unknown [id number]. 2.462 Unknown [id number] [id number]. 2.462 Unknown [id number]. 2.462 Unknown [id number] [id number]. 2.462 Unknown [id number] [id number]. 2.462 Unknown [id number]. 2.462 Social History Date Type Detail Facility Start: 02-08-2022 End: 08-17-2023 Tobacco smoking status ILIS Unknown if ever smoked [facility] Start: 1950 Sex Assigned At Male [facility] Start: 07-20-2017 End: 12-03-2024 Tobacco smoking status ILIS Never smoked tobacco [facility] Start: 07-20-2017 Tobacco use and exposure Smokeless tobacco non-user [facility] Start: 02-16-2024 End: 02-23-2024 Alcoholic beverage intake Current non-drinker of alcohol (finding) [facility] Start: 02-16-2024 End: 02-19-2024 History of Social function [facility] Start: 02-16-2024 End: 02-19-2024 Tobacco use panel [facility] National Score (1-10 0), lower number is lower risk 75 [facility] Start: 1950 Sex assigned at [facility] Start: 07-03-2024 Sex Male (finding) [facility] Medical Equipment Procedure Code Equipment Code Equipment Origin al Text Equipment Identifier Dates GLENOSPHERE FDA Start: 12-23-2024 HUMERAL STEM FDA Start: 12-23-2024 HUMERAL SYSTEM FDA Start: 09-08-2025 LATERALIZED BASEPLATE FDA Sta rt: 12-23-2024 SCREW FDA Start: 12-23-2024 SHORT POST FDA Start: 12-23-2024 Goals Date Patient Goal Desired Activity /State Functional Status Date Assessment Result Facility 12-24-2024 Functional status Ambulates [facility] Work Phone: Mental Status Date Assessment Result Facility 12-24-2024 Cognitive function Level Of Cons ciousness Awake;Alert;Appropriate;Follow s Commands [facility] Work Phone: 12-24-2024 Cognitive function Voice/Name [facility] Work Phone: 08-17-2023 Cognitive function Voice/Name [facility] Work Phone: Clinical Notes 08-17-2006 to 12-24-2024 Note Date & Type Note Facility 12-24-2024 Discharge summary Note Date/Time December 24, 2024 11:59am [facility] Medical Records Department [address] [place] [address] Discharge Summary 12/24/24 1018 MR#: [id number] Acct: [id number] Name: MARIA E GUTHRIE Rep #:[id number] : 1950 74 From: Oneyda WAGGONER PCP: Dr. Matt Saul MD Status :ADM BAR Location: [place] [address] Providers Date of Admission: 12/23/24 Date of [...] IMPRESSION: Right shoulder reverse arthroplasty. Reading Location: [place] [address] D/C Instructions Discharge Activity: May Shower Weight [...] Dr. Matt Saul MD; EDILSON Diaz~ Signed [facility] Work Phone: 1(341) 844-262809-09-2025 Discharge summary [facility] Medical Records Department [address] [place] [address] Discharge Summary 12/24/24 1018 MR#: [id number] Acct: [id number] Name: MARIA E GUTHRIE Rep #:[id number] : 1950 74 From: Oneyda WAGGONER PCP: Dr. Matt Saul MD Status :ADM BAR Location: [place] [address] Providers Date of Admission: 12/23/24 Date of [...] IMPRESSION: Right shoulder reverse arthroplasty. Reading Location: [place] [address] D/C Instructions Discharge Activity: May Shower Weight [...] Dr. Matt Saul MD; EDILSON Diaz~ Signed [facility]09-09-2025 Progress note Author Major Carrillo [facility] Note Date/Time December 24, 2024 9:42am [facility] Medical Records Department [address] [place] [address] Progress Note - Hospitalist 12/24/24913 MR#: [id number] Acct: [id number] Name: MARIA E GUTHRIE Rep #:[id number] : 1950 74 From: Major mathews MD PCP: Dr. Matt Saul MD Status :ADM BAR Location: [place] [address] Subjective Subjective Doing well, pain is controlled [...] IMPRESSION: Right shoulder reverse arthroplasty. Reading Location: [place] [address] Physical Exam Narrative General: Alert, Oriented x3, [...] with questions Charges/Coding Visit Charges Inpatient E&M: 23840 Subs Hosp L2 12/24/24 0942 <Electronically signed by Major Carrillo MD> Cosigner Signature (if applicable): CC: ~ Signed ADDENDUM by Dr. Major Carrillo MD on 12/24/24 at 0942 Visit Charges Office Visits / Consults: 11580 OV L3 Est 20min 12/24/24 0942<Electronically signed by Major Carrillo MD> Cosigner Signature (if applicable): cc: ~* Signed [facility] Work Phone: 1(302) 754-332409-09-2025 [facility] Medical Records Department [address] [place] [address] Discharge Summary 12/24/24 1018 MR#: [id number] Acct: [id number] Name: MARIA E GUTHRIE Rep #: [id number] : 1950 74 From: Oneyda WAGGONER PCP: Dr. Matt Saul MD Status:ADM BAR Location: [address] Providers Date of Admission: 12/23/24 Date [...] 20 H, Creatinine 1.01 (more content not included)...[facility]09-09-2025 Progress note [facility] Medical Records Department [address] [place] [address] Progress Note - Hospitalist 12/24/24913 MR#: [id number] Acct: [id number] Name: MARIA E GUTHRIE Rep #:[id number] : 1950 74 From: Major mathews MD PCP: Dr. Matt Saul MD Status :ADM BAR Location: [place] [address] Subjective Subjective Doing well, pain is controlled [...] IMPRESSION: Right shoulder reverse arthroplasty. Reading Location: [place] [address] Physical Exam Narrative General: Alert, Oriented x3, [...] with questions Charges/Coding Visit Charges Inpatient E&M: 25042 Subs Hosp L2 12/24/24 0942 Cosigner Signature (if applicable): CC: ~ Signed ADDENDUM by Dr. Major Carrillo MD on 12/24/24 at 0942 Visit Charges Office Visits / Consults: 52061 OV L3 Est 20min 12/24/24 0942 Cosigner Signature (if applicable): cc: ~* Signed [facility]09-08-2025 Consult note Author Hansel Sultana [facility] Note Date/Time December 23, 2024 8:16pm [facility] Medical Records Department [address] [place] [address] Consultation - Hospitalist 12/23/24 1608 MR#: [id number] Acct: [id number] Name: MARIA E GUTHRIE Rep #:[id number] : 1950 74 From: Hansel foreman DO PCP: Dr. Matt Saul MD Status :ADM BAR Location: [place] [address] Assessment & Plan Assessment/Plan (1) Right rotator cuff tear arthropathy: PLAN: Plan Patient is a 74-year-old male who presented to [facility] on 12/23/2024 for planned right shoulder [...] is a 74 M who presented to [facility] on 12/23/2024 for planned orthopedic procedure. [...] No other acute concerns at this time. [facility] Medical History Wears hearing aid Wears glasses Wears partial dentures History of steroid therapy Arthritis Dietary restriction Non-smoker History of echocardiogram History of stress test Cardiology follow-up encounter Diabetes Myocardial infarct Hypertension Osteoarthritis Gout Atherosclerosis of coronary artery of cantwell heart without angina pectoris Hyperlipidemia Home Medications [...] Type Severity Reaction Status Date / Time Vuumwlm-UOW-QpK Reductase AdvReac Mild myalgias Verified 12/23/24 10:26 Inhibitor (Svdygdo-Yds-Lbv Reductase Inhibitor) Family History Brother CAD (coronary [...] IMPRESSION: Right shoulder reverse arthroplasty. Reading Location: [place] [address] Charges/Coding Visit Charges Inpatient E&M: 67516 Subs Hosp L2 12/23/242015 <Electronically signed by Hansel Sultana DO> Cosigner Signature (if applicable): CC: Dr. Matt Saul MD; Dr. Major Yi DO~ Signed [facility] Work Phone: 1(699) 146-134709-08-2025 Consult note [facility] Medical Records Department [address] [place] [address] Consultation - Hospitalist 12/23/24 1608 MR#: [id number] Acct: [id number] Name: MARIA E GUTHRIE Rep #:[id number] : 1950 74 From: Hansel foreman DO PCP: Dr. Matt Saul MD Status :ADM BAR Location: [place] [address] Assessment & Plan Assessment/Plan (1) Right rotator cuff tear arthropathy: PLAN: Plan Patient is a 74-year-old male who presented to [facility] on 12/23/2024 for planned right shoulder [...] is a 74 M who presented to [facility] on 12/23/2024 for planned orthopedic procedure. [...] No other acute concerns at this time. [facility] Medical History Wears hearing aid Wears glasses Wears partial dentures History of steroid therapy Arthritis Dietary restriction Non-smoker History of echocardiogram History of stress test Cardiology follow-up encounter Diabetes Myocardial infarct Hypertension Osteoarthritis Gout Atherosclerosis of coronary artery of cantwell heart without angina pectoris Hyperlipidemia Home Medications [...] Type Severity Reaction Status Date / Time Aiqbftu-GUH-UuA Reductase AdvReac Mild myalgias Verified 12/23/24 10:26 Inhibitor (Fffvkxn-Jsl-Wah Reductase Inhibitor) Family History Brother CAD (coronary [...] IMPRESSION: Right shoulder reverse arthroplasty. Reading Location: [place] [address] Charges/Coding Visit Charges Inpatient E&M: 46250 Subs Hosp L2 12/23/242015 Cosigner Signature (if applicable): CC: Dr. Matt Saul MD; Dr. Major Yi, DO~ Signed [facility]09-08-2025 Consult note Author Osei Lubin [facility] Note Date/Time December 23, 2024 2:33pm [facility] Medical Records Department [address] [place] [address] Anesthesia Postop Eval II 12/23/24 1433 MR#: [id number] Acct: [id number] Name: MARIA E GUTHRIE Rep #:[id number] : 1950 74 From: Osei Choudhury PCP: Dr. Matt Saul MD Status :ADM BAR Y Race: C Location: [place] [address] Anesthesia Postop Eval I Sum Postop Eval Completion status Anesthesia document: Postop Eval 1 completed: Yes Anesthesia Postop Eval I Summary Anesthesia Postop Eval I Summary: Anesthesia Postop Eval I: Assessment Summary Airway patent Yes 12/23/24 13:32 BUNDLE [email or web address].CSIR Spontaneous unlabored Yes 12/23/24 13:32 BUNDLE TIER.CSIR respirations Mental status nausea No 12/23/24 13:32 BUNDLE TIER.CSIR Vomiting No 12/23/24 13:32 BUNDLE TIER.CSIR Anesthesia Postop Eval I: Fluid Summary Crystalloid volume administer 1,300 12/23/24 13:32 BUNDLE TIER.CSIR (ml) Colloids volume administered ( ml) Blood Product volume administered (ml) Total IV fluid infused 1,300 12/23/24 13:32 BUNDLE TIER.CSIR Anesthesia Postop Eval I: Summary Notes Anesthesia Complication No 12/23/24 13:32 BUNDLE TIER.CSIR Anesthesia Complication Comment: Post-operative progress note Anesthesia: Postop Eval II Evaluation Mental status: Awake and Calm Pain Level: 1 nausea: No Vomiting: No Complications Anesthesia Complication: No 12/23/24 1433 <Electronically signed by Osei Lubin MD> Date _ Osei Lubin MD Cosigner Signature: Date CC: ~ Signed [facility] Work Phone: 1(750) 164-324509-08-2025 Consult note Author Priscilla Willard [facility] Note Date/Time December 23, 2024 1:33pm [facility] Medical Records Department [address] [place] [address] Anesthesia Postop Eval I 12/23/24 1332 MR#: [id number] Acct: [id number] Name: MARIA E GUTHRIE Rep #:[id number] : 1950 74 From: Priscilla Willard CRNA PCP: Dr. Matt Saul MD Status :REG SDC Y Race: C Location: [place] [address] Anesthesia: Postop Eval I Current Vital Signs [...] Priscilla cruz CRNA> Date _ Priscilla Willard BUNDLE TIER Cosigner Signature: Date CC: ~ Signed [facility] Work Phone: 1(498) 561-547009-08-2025 Evaluation note* Diagnosis Onset Date Resolution Status Admit Date Right rotator cuff tear arthropathy acute December 23 1:06pm Status post reverse total arthroplasty of right shoulder acute S epte2024 1:06pm [facility] Work Phone: 1(581) 935-315909-08-2025 Evaluation note* Diagnosis Onset Date Resolution Status Admit Date Right rotator cuff tear arthropathy inactive Maureen 8th, 2 025 1:06pm Status post reverse total arthroplasty of right shoulder inactive December 23 1:06pm [facility] Work Phone: 1(757) 640-276909-08-2025 Consult note [facility] Medical Records Department [address] [place] [address] Anesthesia Postop Eval II 12/23/24 1433 MR#: [id number] Acct: [id number] Name: MARIA E GUTHRIE Rep #:[id number] : 1950 74 From: Osei Choudhury PCP: Dr. Matt Saul MD Status :ADM BAR Y Race: C Location: [address] Anesthesia Postop Eval I Sum Postop Eval Completion status Anesthesia document: Postop Eval 1 completed: Yes Anesthesia Postop Eval I Summary Anesthesia Postop Eval I Summary: Anesthesia Postop Eval I: Assessment Summary Airway patent Yes 12/23/24 13:32 BUNDLE TIER.CSIR Spontaneous unlabored Yes 12/23/24 13:32 BUNDLE TIER.CSIR respirations Mental status nausea No 12/23/24 13:32 BUNDLE TIER.CSIR Vomiting No 12/23/24 13:32 BUNDLE TIER.CSIR Anesthesia Postop Eval I: Fluid Summary Crystalloid volume administer 1,300 12/23/24 13:32 BUNDLE TIER.CSIR (ml) Colloids volume administered ( ml) Blood Product volume administered (ml) Total IV fluid infused 1,300 12/23/24 13:32 BUNDLE TIER.CSIR Anesthesia Postop Eval I: Summary Notes Anesthesia Complication No 12/23/24 13:32 BUNDLE TIER.CSIR Anesthesia Complication Comment: Post-operative progress note Anesthesia: Postop Eval II Evaluation Mental status: Awake and Calm Pain Level: 1 nausea: No Vomiting: No Complications Anesthesia Complication: No 12/23/24 1433 MD> Date _ Osei Lubin MD Cosigner Signature: Date CC: ~ Signed [facility]09-08-2025 Radiology Diagnostic study note [facility] [address] [place] [address] Shoulder min 2 Views MR#: [id number] Acct: [id number] Name: MARIA E GUTHRIE Rep #: [id number] : 1950 M 74 From: Zhou Suárez MD PCP: Dr. Matt Saul MD Status: REG [facility] Study:Shoulder min 2 Views Date of Exam: 12/23/24 Exam# [id number] Ordering Dr: Major Yi DO PROCEDURE: SHOULDER [...] IMPRESSION: Right shoulder reverse arthroplasty. Reading Location: [place] [address] CC: Dr. Matt Saul MD; Dr. Major Yi DO ~ Cloth Neutralizer: Signed [facility]09-08-2025 Consult note [facility] Medical Records Department [address] [place] [address] Anesthesia Postop Eval I 12/23/24 1332 MR#: [id number] Acct: [id number] Name: MARIA E GUTHRIE Rep #:[id number] : 1950 74 From: Priscilla Willard CRNA PCP: Dr. Matt Saul MD Status :[facility] Y Race: C Location: [place] [address] Anesthesia: Postop Eval I Current Vital Signs Temperature: 97 F Pulse Rate: 89 Blood Pressure: 145/87 Respiratory Rate: 18 Pulse Ox: 93 Assessment Airway patent: Yes Spontaneous unlabored respirations: Yes nausea: No Vomiting: No Anesthesia Complication: No Fluid Hydration Crystalloid volume administer (ml): 1,300 Total IV fluid infused: 1,300 Progress Note Anesthesia document: Postop Eval 1 completed: Yes 12/23/24 1333 a BUNDLE TIER> Date _ Priscilla Willard BUNDLE TIER Cosigner Signature: Date CC: ~ Signed [facility]09-08-2025 Procedure note [facility] Medical Records Department [address] [facility] [place] [address] Operative Report 12/23/24 1322 MR#: [id number] Acct: [id number] Name: MARIA E GUTHRIE Rep #:[id number] : 1950 74 From: Major lake DO PCP: Dr. Matt Saul MD Status :[facility] Location: [place] [address] Operative Report (Standard) Operative Information Date of Procedure: 12/23/24 Pre-Operative Diagnosis: Right shoulder rotator cuff tear arthropathy Post-Operative Diagnosis: Right shoulder rotator cuff tear arthropathy Surgery/Procedure Performed: Right reverse total shoulder arthroplasty marriage and family counselor: Yes Travel Director: Oneyda Solano Tasks completed by printer assistant: Opening & closing, Implanting device, Hemostasis: [...] No Description of surgery: Patient arrived to [facility] morning of the procedure and was [...] positioned in the beachchair position. A well-padded head gauge unit operator was applied. The nonoperative extremity was [...] appropriate depth with good press-fit purchase. A Britt was used to confirm depth. Cortical screws [...] operative suite. He was transferred to the [facility] and subsequently to PACU in stable condition. Need for skilled medical assistant: Oneyda Solano PA-C was critical to the outcome of thecase. During the course of the procedure the physician medical assistant played a vitalrole. Her intimate knowledge [...] Saul MD; Dr. Major Yi, DO~ Signed [facility]09-08-2025 Consult note Author Osei Lubin [facility] Note Date/Time December 23, 2024 10:57am [facility] Medical Records Department [address] [place] [address] Pre-Anesthesia Evaluation 12/23/24 1052 MR#: [id number] Acct: [id number] Name: MARIA E GUTHRIE Rep #:[id number] : 1950 74 From: Osei Choudhury PCP: Dr. 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 Female No 12/03/24 10:59 HX of Motion [...] 12/23/24 10:31 Respiratory Assessment Respiratory Assessment - hydrodynamics teacher: Respiratory Tract Infection 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 Hx Respiratory Tract Infection No 12/03/24 10:59 STOP Sleep Apnea STOP Sleep Apnea - hydrodynamics teacher: STOP Sleep Apnea - hydrodynamics teacher Hx Hypertension Yes: CONTROLLED WITH MED 12/03/24 [...] Tobacco Use History Tobacco Use History - hydrodynamics teacher: Tobacco Use History - hydrodynamics teacher Tobacco Use Smoking Status Never smoker 12/03/24 10:59 Hx Tobacco Use No 12/03/24 10:59 Years Smoking Packs Smoked per Day Smoking Cessation Date was within the last 15 years Hx Smoking Cessation Date Hx Smoking Cessation Counseling Hematologic Medial History 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 Hx of Blood Transfusion No 12/03/24 [...] confused, unrespo /Reproduction History /Reproductive History - hydrodynamics teacher: /Reproductive Hx- hydrodynamics teacher Hx Now No 12/03/24 10:59 Gestational Age [...] Osteoarthritis Gout Atherosclerosis of coronary artery of cantwell heart without angina pectoris Hyperlipidemia Home Medications [...] Type Severity Reaction Status Date / Time Wwxhtgr-JCO-FkL Reductase AdvReac Mild myalgias Verified 12/23/24 10:26 Inhibitor (Btsbgce-Wer-Qfe Reductase Inhibitor) Family History Brother CAD (coronary [...] MD Cosigner Signature: Date CC: ~ Signed [facility] Work Phone: 1(428) 446-730309-08-2025 Consult note [facility] Medical Records Department [address] [place] [address] Pre-Anesthesia Evaluation 12/23/24 1052 MR#: [id number] Acct: [id number] Name: MARIA E GUTHRIE Rep #:[id number] : 1950 74 From: Osei Choudhury PCP: Dr. 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 Female No 12/03/24 10:59 HX of Motion [...] 12/23/24 10:31 Respiratory Assessment Respiratory Assessment - hydrodynamics teacher: Respiratory Tract Infection 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 Hx Respiratory Tract Infection No 12/03/24 10:59 STOP Sleep Apnea STOP Sleep Apnea - hydrodynamics teacher: STOP Sleep Apnea - hydrodynamics teacher Hx Hypertension Yes: CONTROLLED WITH MED 12/03/24 [...] Tobacco Use History Tobacco Use History - hydrodynamics teacher: Tobacco Use History - hydrodynamics teacher Tobacco Use Smoking Status Never smoker 12/03/24 10:59 Hx Tobacco Use No 12/03/24 10:59 Years Smoking Packs Smoked per Day Smoking Cessation Date was within the last 15 years Hx Smoking Cessation Date Hx Smoking Cessation Counseling Hematologic Medial History 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 Hx of Blood Transfusion No 12/03/24 [...] confused, unrespo /Reproduction History /Reproductive History - hydrodynamics teacher: /Reproductive Hx- hydrodynamics teacher Hx Now No 12/03/24 10:59 Gestational Age [...] Osteoarthritis Gout Atherosclerosis of coronary artery of cantwell heart without angina pectoris Hyperlipidemia Home Medications [...] Type Severity Reaction Status Date / Time Izgtcat-TEH-LcK Reductase AdvReac Mild myalgias Verified 12/23/24 10:26 Inhibitor (Nhdhqth-Fyv-Uod Reductase Inhibitor) Family History Brother CAD (coronary [...] MD Cosigner Signature: Date CC: ~ Signed [facility]08-14-2025 Radiology Diagnostic study note [facility] [address] [place] [address] Extremity Upper without Contra MR#: [id number] Acct: [id number] Name: MARIA E GUTHRIE Rep #: [id number] : 1950 M 74 From: Sean Garcia MD PCP: Dr. Matt Saul MD Status: REG CLI Study:Extremity Upper without Contra Date of Exam: 11/26/24 Exam# [id number] Ordering Dr: Major Yi DO PROCEDURE: EXTREMITY [...] Saul MD; Dr. Major Yi DO ~ Cloth Neutralizer: Signed [facility]03-04-2025 Radiology Diagnostic study note [facility] [address] [place] [id number] Ankle min 3 Views MR#: [id number] Acct: [id number] Name: MARIA E GUTHRIE Rep #: [id number] : 1950 M 74 From: Shannon Joshua MD PCP: Dr. Matt Saul MD Status: REG CLI Study:Ankle min 3 Views Date of Exam: Exam# [id number] Ordering Dr: Luna Saul MD EXAM: XR [...] evaluation with CT is recommended. Reading [facility] CC: Dr. Matt Saul MD ~ Cloth Neutralizer: Signed [facility]03-04-2025 Radiology Diagnostic study note [facility] [address], [place] [address] Foot min 3 Views MR#: [id number] Acct: [id number] Name: MARIA E GUTHRIE Rep #: [id number] : 1950 M 74 From: Laurent Alva MD PCP: Dr. Matt Saul MD Status: REG CLI Study:Foot min 3 Views Date of Exam: 08/09 Exam# [id number] Ordering Dr: Luna Saul MD PROCEDURE: FOOT [...] suggestive of gout. Calcaneal spurs. Reading Location: [id number] CC: Dr. Matt Saul MD ~ Cloth Neutralizer: Signed [facility]12-19-2024 Evaluation note* Diagnosis Onset Date Resolution Status Admit Date Essential hypertension chronic De cember 2023 2:13pm History of coronary artery stent placement August 17, 2006 chronic April 04, 2 024 2:13pm Hyperlipidemia chronic March 172023 2:13pm [facility] Work Phone: 1(154) 717-216211-11-2024 History of Present illness Narrative* Maddie Bernstein APRN.MARKETING ANALYTICS ANALYST - 02/26/2024 1:00 PM EST FOLLOW UP VISIT - ENDOSCOPY Maria E Guthrie 1950 [id number] REFERRING PHYSICIAN: Matt Saul (Rashida) [address] [facility] [address] Maria E Guthrie is a patient I [...] as needed for worsening/no improvement. Maddie Bernstein APRN.MARKETING ANALYTICS ANALYST documented in [facility]24 NoteHNO ID: [id number] Author: MADDIE BERNSTEIN APRN.MARKETING ANALYTICS ANALYST Service: ? Author Type: Nurse Practitioner Type: Progress Notes Filed: 02/26/2024 13:03 Note Text: FOLLOW UP VISIT - ENDOSCOPY Maria E Guthrie 1950 [id number] REFERRING PHYSICIAN: Matt Saul (Rashida) [address] [place] [id number] Maria E Guthrie is a patient I [...] as needed for worsening/no improvement. Maddie Bernstein APRN.[facility]11-04-2024 Note* Discharge Instr - Nursing - Estelle Bird RN - 02/19/2024 12:17 PM EST The patient received a copy of Colonoscopy discharge instructions that contain information for how to contact the physician who performed the procedure and when to seek medical care. [facility]11-04-2024 Miscellaneous Notes* Discharge Instr - Nursing - Estelle Bird RN - 02/19/2024 12:17 PM EST The patient received a copy of Colonoscopy discharge instructions that contain information for how to contact the physician who performed the procedure and when to seek medical care. documented in this encounterK[facility]11-04-2024 NoteHNO ID: [id number] Author: ESTELLE BIRD RN Service: ? Author Type: Registered Nurse Type: Nursing Progress Note Filed: 02/19/2024 12:15 Note Text: Abdomen soft non-distended. Will continue to monitor.[facility] 02-19-2024 Nurse Note* Estelle Bird RN - 02/19/2024 12:00 PM EST Abdomen soft non-distended. Will continue to monitor. [facility]-04[facility] Nurse Note* Estelle Bird RN - 02/19/2024 12:00 PM EST Abdomen soft non-distended. Will continue to monitor. documented in this encounterK[facility]11-04-2024 History and physical note * Demetri Lord [...] Last colonoscopy 06/[address] Park at [facility]. Sedation:Midazolam 5 mg IV, Fentanyl 100 micrograms [...] (FLONASE) 50 mcg/actuation nasal spray Use 1 [place] in the nose once daily. cyanocobalamin (VITAMIN [...] entered by the nurse and reviewed by oh Nursing Notes: Francisca Spann RN 02/16/2024 2:03 [...] edited and updated as necessary. Maddie Bernstein APRN.MARKETING ANALYTICS ANALYST UPDATED HISTORY AND PHYSICAL EXAMINATION SERVICE DATE: 02/19/2024 SERVICE TIME: 10:53 AM SENSITIVE EXAMINATION CONSENT: The sensitive examination was discussed with the Patient or Patient's Authorized [place] Machine Operator. Asapplicable, any other physician, advance practice provider, medical student, or other health professional student that will be observing or involved in the sensitive examination for educational or training purposes was discussed with the Patient or Authorized [place] Machine Operator. The Patient or Authorized [place] Machine Operator has agreed to proceed with the [...] DATE: February 19, 2024 TIME: 10:53 AM [facility]11-04[facility] History and physical note* Demetri Lord MD [...] Last colonoscopy 06/[address] Park at [facility]. Sedation:Midazolam 5 mg IV, Fentanyl 100 micrograms [...] (FLONASE) 50 mcg/actuation nasal spray Use 1 [place] in the nose once daily. cyanocobalamin (VITAMIN [...] entered by the nurse and reviewed by oh Nursing Notes: Francisca Spann RN 02/16/2024 2:03 [...] discussed with the Patient or Patient's Authorized [place] Machine Operator. Asapplicable, any other physician, advance practice provider, medical student, or other health professional student that will be observing or involved in the sensitive examination for educational or training purposes was discussed with the Patient or Authorized [place] Machine Operator. The Patient or Authorized [place] Machine Operator has agreed to proceed with the [...] 2024 TIME: 10:53 AM documented in this encounterK[facility]11-01-2024 Telephone encounter Note * Telephone Encounter - Melanie Marcelino - 02/16/2024 2:34 PM EDT 02-19-2024 Colonoscopy concepción [facility] prep, nurse went over instructions yudy has direct number to contact for any questions or concerns., Instructed patient to arrive at 1045 in ASC [facility]11-01-2024 Miscellaneous Notes* Telephone Encounter - Melanie Marcelino - 02/16/2024 2:34 PM EDT 02-19-2024 Colonoscopy concepción ASC Joyyte[place]olly prep, nurse went over instructions yudy has direct number to contact for any questions or concerns., Instructed patient to arrive at 1045 in ASC documented in this encounterK[facility]11-01-2024 Nurse Note* Francisca Spann, RN - 02/16/2024 [...] N/A Last Colonoscopy: 07/10/2020 Francisca Spann RN [facility]11-01-[facility]24 History of Present illness Narrative* Maddie Bernstein APRN.MARKETING ANALYTICS ANALYST - 02/16/2024 2:00 PM EDT HISTORY AND [...] Last colonoscopy 06/[address] Park at [facility]. Sedation:Midazolam 5 mg IV, Fentanyl 100 micrograms [...] (FLONASE) 50 mcg/actuation nasal spray Use 1 [place] in the nose once daily. cyanocobalamin (VITAMIN [...] entered by the nurse and reviewed by oh Nursing Notes: Francisca Spann RN 02/16/2024 2:03 [...] necessary. Maddie Bernstein APRN.BALJIT documented in this encounterKet[facility]11-01-2024 NoteHNO ID: [id number] Author: MADDIE BERNSTEIN APRN.CNP Service: ? Author [...] Last colonoscopy 06/[address] Park at [facility]. Sedation:Midazolam 5 mg IV, Fentanyl 100 micrograms [...] (FLONASE) 50 mcg/actuation nasal spray Use 1 [place] in the nose once daily. cyanocobalamin (VITAMIN [...] entered by the nurse and reviewed by oh Nursing Notes: Francisca Spann RN 02/16/2024 2:03 [...] denies ulcers, denies vomiting, (more content not included)...[facility]11-01-2024 Nurse Note* Francisca Spann RN - 02/16/2024 [...] 07/10/2020 Francisca Spann RN documented in this encounterK[facility]05-02-2024 Discharge summary Author Joe Joshua [facility] August 18, 2023 12:45am Note Date/Time August 17, 2023 9:52pm [facility] Medical Records Department [address] [place] [address] Emergency Department Summary 08/17/23 MR#: [id number] Acct: [id number] Name: MARIA E GUTHRIE Rep #:[id number] : 1950 73 From: Joe Sage PCP: Dr. Matt Saul MD Status :REG ER Location: ED HPI History of Present Illness Chief Complaint: Chest Pain Informant: patient Narrative Narrative: Intermittent chest pain initially started overnight twinges in his left chest. This evening it returned having intermittent symptoms. He had 1 stent placed [id number]. Diabetes hypertension hyperlipidemia. No cardiac dysrhythmia history. On baby aspirin. No cough. He had traveled yesterday 8-hour drive and return. Noticed leg swelling no leg cramping no dyspnea. Prior Similar Symptoms: No CVD Risk Factors: Positive for Hypertension, Diabetes and Hypercholesterolemia PE Risk Factors: Positive for [facility] Medical History (Updated 08/18/23 @ 00:[address] Joe Joshua DO) Atherosclerosis of coronary artery of [place] heart without angina pectoris Chest pain Coronary [...] DAILY 02/08/22 [History Last Taken Unknown] omega 8-kbu-dbm-fish oil 300 mg-1,000 mg capsule (Fish Oil) 2 cap PO BID 02/08/22 [History Last Taken Unknown] allopurinol 300 mg tablet 300 mg PO DAILY 02/08/23 [History Last Taken Unknown] hydrochlorothiazide 25 mg tablet 25 mg PO DAILY 02/08/23 [History Last Taken Unknown] Allergy/AdvReac Type Severity Reaction Status Date / Time Gixorih-DCU-LbO Reductase AdvReac Mild myalgias Verified 08/17/23 21:04 Inhibitor [Jsluzxp-Rbz-Lvd Reductase Inhibitor] Family History Brother CAD (coronary [...] in the room however on the cardiac cath lab technologist did not know any rhythm changes. Cardiac [...] clinician: N/A This note was generated with [employer] dictation software. It may contain incorrectwords, spelling, [...] 38.9 L Lymph % (Auto) 49.8 H [place] % (Auto) 10.1 H Eos % (Auto) [...] mg tablet 100 mg PO DAILY omega 8-xhk-uph-fish oil [Fish Oil] 300-1,000 mg capsule 2 [...] muscle); rotate sites Pt gets from the [place] Primary Care Provider: Matt Saul Referrals: Matt [...] your Primary Care Provider. Call [facility] ([phone]) or report to the closest Emergency Room. Call 911 if necessary. 08/18/23 0045 <Electronically signed by Joe Sage> Cosigner Signature (if applicable): CC: Dr. Matt Saul MD ~ Signed [facility] Work Phone: [phone]) 897-710605-03-2007 Evaluation note* Diagnosis Onset Date Resolution Status Essential hypertension chron ic History of coronary artery stent placement August 17 chronic Hyperlipidemia chronic [facility] Work Phone: Evaluation note* Diagnosis Onset Date Resolution Status Influenza due to influenza virus, type A, human acute [facility] Work Phone: Evaluation note* Diagnosis History of colonic polyps- Primary Personal history of colonic polyps Screen for colon cancer Special screening for malignant neoplasms, colon documented in [facility] [place] [facility]* Diagnosis History of colonic polyps Personal history of colonic polyps Screen for colon cancer Special screening for malignant neoplasms, colon documented in this [facility] [place] [facility]* Diagnosis History of colonic polyps- Primary Personal history of colonic polyps documented in this encounter [facility] noteNo assessment information availableWooOhioHealth [facility] Hospital Work Phone: Hospital Discharge instructions Additional Instructions Cardiac workup was negative. Potassium 3.1 orally replaced. Follow-up with your doctor. If symptoms recur and worsens, return to the ED for reevaluation.[facility] Work Phone: Hospital Discharge instructionsAdditional Instructions Date [facility]: [facility]24[facility] Work Phone: Reason for referral (narrative)* Outpatient Procedure (Routine) - Authorized Specialty Diagnoses / Procedures Referred By Shauna ross Referred To Contact [facility] [place] Diagnoses History of colonic polyps Screen for colon cancer Procedures COLONOSCOPY SCREENING COLONOSCOPY FLX DX W/COLLJ SPEC WHEN Maddie Lozada APRN.CNP [address] [place] [address] [facility] [address] [address] Referral ID Status Reason Start Date Expiration Date Visits Requested Visits Authorized [id number] Authorized Auto-Generat ed Referral 02/16/2024 02/15/2025 1 1 [facility] for referral (narrative)* Outpatient Procedure (Routine) - Closed Specialty Diagnoses / Procedures Referred By Shauna ross Referred To Contact [facility] [place] Diagnoses History of colonic polyps Screen for colon cancer Procedures COLONOSCOPY SCREENING COLONOSCOPY FLX DX W/COLLJ SPEC WHEN Maddie Lozada APRN.CNP [address] [place] [address] [facility] Disease [place] [id number] Referral ID Status Reason Start Date Expiration Date V isits Requested Visits Authorized [id number] Closed Auto-Generate d Referral 02/16/2024 02/15/2025 1 1 [facility] for referral (narrative)No reason for referral information availableWLima City Hospital Work Phone: Reason for visit Narrative* Outpatient Procedure (Routine) - Closed Specialty Diagnoses / Procedures Referred By Shauna ross Referred To Contact [facility] Diagnoses History of colonic polyps Screen for colon cancer Procedures COLONOSCOPY SCREENING COLONOSCOPY FLX DX W/COLLJ SPEC WHEN Maddie Lozada, JENNIFER.MARKETING ANALYTICS ANALYST [address] [place] [address] [facility] [place] [address] Referral ID Status Reason Start Date Expiration Date V isits Requested Visits Authorized [id number] Closed Auto-Generate d Referral 02/16/2024 02/15/2025 1 1 [facility] Chief Complaint and Reason for Visit Chief [...] Yes December 29, 2014 1:26pm Power of Knotter Hand Yes December 1:26pm Advance Directive Response Recorded Date/ Time Name of Medical Power of Knotter Hand darby feliciano n August 17, 2023 9:53pm Living Will Yes August 17, 2023 9: 53pm Power of Knotter Hand Yes August 17, 2023 9:53pm Advance Directive Response Recorded Date/ Time Living Will Yes December 29, 2014 2:26pm Power of Knotter Hand Yes December 2:26pm Advance Directive Response Recorded Date/ Time Do you have a Healthcare Power of Knotter Hand? Yes December 23, 2024 2:44pm Summary Purpose [...] Primary Care Provider Activ e Bill Murdock SILK SCREEN CUTTER, SILK SCREEN CUTTER-C Attending Provider Active Team Status: Active Member Role Status Dates Dr. Armond Saul MD Primary Care Provider Activ e Self Referred Attending Provider Active Team Status: Inactive Member Role Status Dates Dr. Armond Saul MD Primary Care Provider Activ e Bill Murdock SILK SCREEN CUTTER, SILK SCREEN CUTTER-C Attending Provider Active Team Status: Inactive Member Role Status Dates Dr. Armond Saul MD Primary Care Provider, Refe rring Provider Active Xiomara Renee SILK SCREEN CUTTER, SILK SCREEN CUTTER-C Attending Provider Active Team Status: Active Member [...] Dr. Joe Joshua DO Emergency Provider Active Service And Repair Supervisor Relationship Specialty Start Date End Date Matt Saul MD [address] [place], [place] [address] PCP - General Family Medicine 06/30/20 Service And Repair Supervisor Relationship Specialty Start Date End Date Matt Saul MD [address] [place], [place] [id number] PCP - General Family Medicine 06/30/20 Service And Repair Supervisor Relationship Specialty Start Date End Date Matt Saul MD [address] [place], [place] [address] PCP - General Family Medicine 06/30/20 Service And Repair Supervisor Relationship Specialty Start Date End Date Matt Saul MD [address] [facility] [place], [place] [id number] PCP - General Family Medicine 06/30/20 Team [...] Active Start: December 24, 2024 Dr. Major Carrlilo MD Attending physician Activ e Start: December [...] or prosecute any alcohol or drug abuse patient.[facility] the event this information is protected by the Federal Confidentiality of Alcohol and Drug Abuse Patient Records regulations: The Federal rules restrict any use of the information to criminally investigate or prosecute any alcohol or drug abuse patient.[facility]burg[facility] the event this information is protected by the Federal Confidentiality of Alcohol and Drug Abuse Patient Records regulations: The Federal rules restrict any use of the information to criminally investigate or prosecute any alcohol or drug abuse patient.[facility]burg[facility] the event this information is protected by the Federal Confidentiality of Alcohol and Drug Abuse Patient Records regulations: The Federal rules restrict any use of the information to criminally investigate or prosecute any alcohol or drug abuse patient.[facility] Reason for Visit (unrecogniz ed section and content) Reason Comments Consult colonoscopy Reason Comments Follow Up Review colonoscopy r esults. Reason Comments 02-19-2024 Colonscoopy (unrecognized sect ion and content) No Status Records FoundNo Status Records Found INFORMATION SOURCE (unrecogn ized section and content) DATE CREATED AUTHOR 03/19/2024 [facility] DATE CREATED AUTHOR AUTHOR'S ORGANIZ ATION 02/28/2025 [facility] FOR RECORDS PERTAINING TO PATIENTS WHO [...] BE BASED ON THE PRIMARY CLINICAL RECORDS. [employer] provides no warranty or guarantee of the accuracy or completeness of information in this document.
[2025-04-09 11:41] VITALS: BP 122/75; PULSE 60; RESP 16; TEMP 36.4; O2SAT 95
== END 2025-04-09 23:59 | disposition home or self-care (01) ==
LOC: MEDOUTP 10:38
PROVIDERS: PCP Family Medicine; Referring Provider Internal Medicine Infectious Disease; Visit Provider Internal Medicine Infectious Disease
DX: M97.31XD Periprosthetic fracture around internal prosthetic right shoulder joint, subsequent encounter (principal)
CPT/HCPCS: 96365; A4216; J0696

== ENCOUNTER 2025-04-10 12:17 | Outpatient (CLI) | payer MEDICARE, OTHER, SELFPAY ==
--- OUTSIDE RECORDS SUMMARY | 2025-04-10 12:20 | XMS RPT_ITS | CCD ---
Author Organization [facility] Care Team Providers Care Riprap Placer Name Role Phone FERMIN Blunt, Bailey Keller Unavailable Georgette Oliva Unavailable Unavailable Georgette Tabor Unavailable Unavailable Dr. Armond Saul Primary Care Provider Dr. Armond Saul Referring Provider Dr. Nathan Purcell Attending Provider [phone] Doyle Sandoval Attending Provider [phone] Collette MOBILE LAB TECHNICIAN, MOBILE LAB TECHNICIAN-Luna Grant Attending Provider Dr. Armond Saul Primary Care Provider [phone] Dr. Armond Saul Referring Provider Víctor MOBILE LAB TECHNICIAN, MOBILE LAB TECHNICIAN-Luna Solano Attending Provider Dr. Nathan Purcell Attending Provider [phone] Nathan Purcell Referring Provider [phone] Nathan Purcell Other Provider Collette MOBILE LAB TECHNICIAN, KHAI-Luna Grant Attending Provider Dr. Matt Saul Primary Care Provider Dr. Matt Saul Referring Provider [phone] EDILSON Driscoll Attending Provider Matt Saul MD Primary Care Provider MATT SAUL Primary Care MADDIE Lind Attending Unavailable MATT SAUL Referring MATT Pace Primary Care UnavailDEMETRI Hudson Attending Unavailable MADDIE BERNSTEIN Referring Unavailable MATT SAUL Primary Care Unavailabl MADDIE Guerrero Attending Unavailable Kg LAZO, Dr. Farley Primary Care Provider Kg LAZO, Dr. Farley Referring Provider [phone] Jazzy LAZO, Dr. Evans Attending Provider [phone] Kg LAZO, Dr. Farley Attending Provider [phone] Kg LAZO, Dr. Farley Primary Care Provider [...] MD Attending Physician Oneyda Spring Attending Physician [phone] Oneyda Spring Referring Provider Yang Romero Attending Unavailable Douglasbellevue, Matt Referring Unavailable [facility] Primary Care Unavailable Spittle, Major Attending Unavailable Spittle, Major Referring Unavailable Spittle, Major Admitting Unavailable [facility] Primary Care Unavailable Kotsonis, Major F Consulting Unavailable Spittle, Major Referring Unavailable Spittle, Major Attending [facility] Spittle, Major Referring Unavailable Spittle, Major Attending Unavailable [facility] Care Unavailable Oneyda Solano Attending Unavailable Oneyda Solano Referring [facility] Un[facility] Primary Care Unavailable Matt Saul Attending Unavailable [facility] Referring Unavailable [facility] Matt Attending Unavailable [facility] Primary Care Unavailable Spittle, Major Referring Unavailable Seven Grey Attending Unavailable [facility] Primary Care Unavailable Spittle, Major Referring Unavailable Hansel Sultana Attending Unavailable Spittle, Major Admitting Unavailable Hansel Sultana Consulting Unavailable [facility] Care Unavailable Spittle, Major Consulting Unavailable Kotsonis, Major F Consulting Unavailable Kotsonis, Major F Attending Unavailable Nathan Purcell Attending Unavailable [facility] Care Unavailable [facility] Referring Unavailable Allergies Allergy Classification Reported Allergen(s) Allergy Type Date of Onset Reaction(s) Facility (3 sources) atorvastatin drug allergy 5 myalgia [facility] Work Phone: (3 sources) simvastatin drug allergy 3 myalgias [facility] Work Phone: (3 sources) CRESTOR, PRAVACHOL drug allergy 3 myalgias [facility] Work Phone: (7 sources) Pylefoy-Enj-Akj Reductase Inhibitor Propensity to adverse reactions 2 myalgias [facility] Comment on above: Lipitor, Crestor, Zo cor (5 sources) Simvastatin; Translations: [SIMVASTATIN] Drug Allergy [address] [facility] Work Phone: (1 source) OTHER; Translations: [OTHER] Propensity to adverse reactions (disorder) 7 [facility] Repository (1 source) Wnkbwtj-Uid-Equ Reductase Inhibitor Drug allergy (disorder) 5 [facility] Repository Medications Current Medications Medication Drug [...] TABS One tablet by mouth daily ASPIRIN [id number] Shruthi Fajardo RN Start: 06-11-2012 take 1 tablet by keyona th once daily at mealtime Aspirin 81 mg Tab Indications: Coronary atherosclerosis of unspecified type of vessel, [place] or graft Take 1 tablet by mouth once daily. Take with food. 06/11/2012 Active cholecalciferol 0.025 mg ora l tablet (14 sources) Vitamin D Start: 01-21-2020 take 1 tablet by keyona th once daily Start: 01-21-2020 take 2000 [IU] by mo [facility] once daily Cholecalciferol (Vitamin D3) Active 2000 [...] (FLONASE) 50 mcg/actuation nasal spray Use 1 [place] in the nose once daily. 05/04/2023 Active [...] tablet by mouth twice daily METOPROLOL TARTRATE [id number] Mari Reyes RN oxyCODONE hydrochloride 5 mg oral tablet (2 sources) Opioid Agonist Start: 12-24-2024 take 5-10 mg by mouth every four to six hours as needed for pain polyethylene glycol 3350 698985 mg / potassium chloride 2970 mg / sodium bicarbonate 6740 mg / sodium chloride 5860 mg / sodium sulfate 45502 mg powder for oral solution (1 source) [...] One tablet by mouth daily CLOPIDOGREL BISULFATE [id number] Demetri Patrick MD [place] 4-Thx-Xvy-Fish Oil (7 sources) Start: 02-08-2022 End: 04-04-2024 [place] 2-Ihb-Lnq-Fish Oil (Fish Oil) 300-1,000 mg capsule Discontinued 2 NMA PO TWICE A DAY February 08, 2022 12:00am April 04, 2024 3:20pm Start: 02-08-2022 take 300-1000 mg by mouth twice daily [place] 7-Yjl-Vvz-Fish Oil (Fish Oil) 300-1,000 mg capsule Active 2 CAP PO TWICE A DAY February 08, 2022 12:00am Start: 02-08-2022 take 300-1000 mg by mouth once daily [place] 1-Mdk-Goi-Fish Oil (Fish Oil) 300-1,000 mg capsule Active [...] by mouth daily OMEGA-3 FATTY ACIDS CAPS [id number] Demetri Patrick MD Start: 06-10-2013 End: 03-31-2015 take 1 tablet by mouth once daily FISH OIL CAPS One tablet by mouth daily OMEGA-3 FATTY ACIDS CAPS [id number] Demetri Patrick MD Start: 03-21-2013 End: 03-25-2013 take 1 capsule by mouth once daily FISH OIL CAPS One capsule by mouth daily OMEGA-3 FATTY ACIDS CAPS [id number] Demetri Patrick MD Start: 03-21-2013 take 1 capsule by mo [facility] once daily FISH OIL CAPS One capsule by mouth daily OMEGA-3 FATTY ACIDS CAPS [id number] Shruthi Fajardo RN FLUoxetine 10 mg oral capsule (6 sources) Serotonin Reuptake Inhibitor Start: 03-21-2013 End: 03-25-2013 take 1 tablet by mouth once daily PROZAC 10 MG CAPS One tablet by mouth daily FLUOXETINE HCL [id number] Demetri Patrick MD Start: 03-21-2013 End: 03-25-2013 take 1 tablet by mouth once daily PROZAC 10 MG CAPS One tablet by mouth daily FLUOXETINE HCL [id number] Demetri Patrick MD gemfibrozil 600 mg oral [...] BY PHYSICIAN FOR PROCEDURAL SEDATION ONLY, Intraprocedure [place]-3 Fatty Acids (3 sources) Start: 06-09-2013 End: 05-11-2017 take 300 mg by mouth once daily [place]-3 Fatty Acids Discontinued 300 MG PO DAILY June 09, 2013 1:00am May 11, 2017 5:09pm Start: 06-09-2013 End: 05-11-2017 take 300 mg by mouth once daily [place]-3 Fatty Acids Discontinued 300 MG PO DAILY June 09, 2013 12:00am May 11, 2017 4:09pm [place]-3 Fatty Acids 300 MG capsule (4 sources) Start: 06-09-2013 End: 05-11-2017 take 1 capsule by mouth once daily [place]-3 Fatty Acids 300 MG capsule Discontinued 300 [...] myocardial infarction; Translations: [Atherosclerotic heart disease of [place] coronary artery without angina pectoris] Onset: 12-24-2008 [...] (current) use of other medications; Translations: [Other termination clerk (current) drug therapy] Onset: 03-31-2014 03-31-2014 Episodic [...] PTon 01-07-2025 Inital Evaluation (1) - PT [facility] [address] [place] [address] / REHABILITATION SERVICES INITIAL EVALUATION MR#: [id number] Acct: [id number] Name: MARIA E GUTHRIE Rep #: [id number] : 1950 74 From: Cesar Holloway DPT [...] to be FAXED BACK to us at [phone] for Medicare purposes. For Medicare only, by signing this I certify the plan of care. Please let me know if there are questions or concerns regarding this plan of care. Physician Signature: Date:__ 01/07/25 1207 CC: Dr. Matt Saul MD; EDILSON Diaz CLS Signed Normal [facility] Microalb:Creat Ratio,Random URon 01-06-2025 Creatinine [Mass/Vol] 68.50 mg/dL Normal 39.00-259.00 [facility] Comment on above: Order Comment: Order Date: 01/06/25 Order Info: [id number] - MIALB Performed By: #### L 502.0250 #### [facility] [address] [place], [place], [address] MALB:CREAT 322.6 mg/g CRE High <30 mg/g CRE [facility] Comment on above: Order Comment: Order Date: 01/06/25 Order Info: [id number] - MIALB Performed By: #### L 502.0250 #### [facility] [address] [place], [address] MICROALBUMIN,UR 221.0 mg/L Normal <20 mg/L [facility] Comment on above: Order Comment: Order Date: 01/06/25 Order Info: [id number] - MIALB Performed By: #### L 502.0250 #### [facility] [address] [place], [address] Random urine creatinine collin urement (mass/volume)Ordered By: Matt Saul on 01-06-2025 Creatinine Unsp time (U) [Mass/Vol] 68.50 mg/dL 39.00-259.00 [facility] Urine albumin measurement wi detection limit of 20 mg/L or less (mass/volume)Ordered By: Matt Saul on 01-06-2025 Albumin DL <= 20 mg/L (U) [Mass/Vol] 221.0 mg/L <20 mg/L [facility] Anion gap in Serum or Plasma Ordered By: Major Yi on 12-24-2024 Anion gap [Moles/Vol] 15 mmol/L - [facility] BUN/creatinine ratioOrdered By: Major Yi on 12-24-2024 Urea nitrogen/Creatinine [Mass ratio] 19.8 mg/mg - [facility] Basic Metabolic Profile (BMP )on 12-24-2024 BUN/CRE 19.8 RATIO Normal 02-03 [facility] Comment on above: Performed By: #### L 500.2500, L100.0500 ####[facility] [address] [place], [address] Calcium [Mass/Vol] 9.2 mg/dL Normal 7.6-11.0 [facility] Comment on above: Performed By: #### L 500.2500, L100.0500 ####[facility] [address] [place], [address] Chloride [Moles/Vol] 100 mmol/L Normal 98-108 [facility] Comment on above: Performed By: #### L 500.2500, L100.0500 ####[facility] [address] [place], [address] CO2 [Moles/Vol] 19.6 mmol/L Low 21.0-32.0 [facility] Comment on above: Performed By: #### L 500.2500, L100.0500 ####[facility] [address] [place], [address] Creatinine [Mass/Vol] 1.01 mg/dL Normal 0.70-1.20 [facility] Comment on above: Performed By: #### L 500.2500, L100.0500 ####[facility] [address] [place], [address] ECRCL 68.29 ml/min Normal 50-250 [facility] Comment on above: Performed By: #### L 500.2500, L100.0500 ####[facility] [address] [place], [address] GAP 15 Normal 5-15 [facility] Comment on above: Performed By: #### L 500.2500, L100.0500 ####[facility] [address] [place], [address] GFR/1.73 sq M.predicted among non-blacks MDRD (S/P/Bld) [Vol rate/Area] 77 mL/min/{1.73_m2} Normal >60 [facility] Comment on above: Result Comment: mL/m in/1.73m2 CKD-EPI Creatinine Equation (2020) Performed By: #### L 500.2500, L100.0500 ####[facility] [address] [place], [address] Glucose [Mass/Vol] 175 mg/dL High 70-99 [facility] Comment on above: Performed By: #### L 500.2500, L100.0500 ####[facility] [address] [place], [address] Potassium [Moles/Vol] 4.4 mmol/L Normal 3.3-5.1 [facility] Comment on above: Performed By: #### L 500.2500, L100.0500 ####[facility] [address] [place], [address] Sodium [Moles/Vol] 135 mmol/L Normal 133-145 [facility] Comment on above: Performed By: #### L 500.2500, L100.0500 ####[facility] [address] [place], [address] Urea nitrogen [Mass/Vol] 20 mg/dL High 4-19 [facility] Comment on above: Performed By: #### L 500.2500, L100.0500 ####[facility] [address] [place], [address] Bedside Glucoseon 12-24-2024 FINGERSTICK GLU 306 mg/dL High 74-106 [facility] Comment on above: Result Comment: SUSAN GEMENT OF PATIENT CARE PER NURSING PROTOCOL Performed By: #### L 501.080 #### [facility] [address] [place], [address] FINGERSTICK GLU 188 mg/dL High 74-106 [facility] Comment on above: Result Comment: SUSAN GEMENT OF PATIENT CARE PER NURSING PROTOCOL Performed By: #### L 501.080 #### [facility] [address] [place], [address] CBC-Complete Blood Cnt No Di ffon 12-24-2024 Erythrocyte distribution width (RBC) [Ratio] 13.4 % Normal 11.6-14.6 [facility] Comment on above: Performed By: #### L 500.2500, L100.0500 #### [facility] [address] [place], [address] Hematocrit (Bld) [Volume fraction] 39.7 % Low 40-54 [facility] Comment on above: Performed By: #### L 500.2500, L100.0500 #### [facility] [address] [place], [address] Hemoglobin (Bld) [Mass/Vol] 13.5 g/dL Normal 13.0-16.5 [facility] Comment on above: Performed By: #### L 500.2500, L100.0500 #### [facility] [address] [place], [address] MCH (RBC) [Entitic mass] 29.6 pg Normal 27.0-32.0 [facility] Comment on above: Performed By: #### L 500.2500, L100.0500 #### [facility] [address] [place], [address] MCHC (RBC) [Mass/Vol] 34.0 g/dL Normal 32-36 [facility] Comment on above: Performed By: #### L 500.2500, L100.0500 #### [facility] [address] [place], [address] MCV (RBC) [Entitic vol] 87.1 fL Normal 80-94 [facility] Comment on above: Performed By: #### L 500.2500, L100.0500 #### [facility] [address] [place], [address] Platelet mean volume (Bld) [Entitic vol] 11.7 fL Normal 6.2-12.0 [facility] Comment on above: Performed By: #### L 500.2500, L100.0500 #### [facility] [address] [place], [address] Platelets (Bld) [#/Vol] 174 10*3/uL Normal 150-450 [facility] Comment on above: Performed By: #### L 500.2500, L100.0500 #### [facility] [address] [place], [address] RBC (Bld) [#/Vol] 4.56 10*6/uL Low 4.6-6.2 [facility] Comment on above: Performed By: #### L 500.2500, L100.0500 #### [facility] [address] [place], [address] RDW SD 41.7 fl Normal 35.1-43.9 [facility] Comment on above: Performed By: #### L 500.2500, L100.0500 #### [facility] [address] [place], [address] WBC (Bld) [#/Vol] 10.6 10*3/uL Normal 4.4-11.0 [facility] Comment on above: Performed By: #### L 500.2500, L100.0500 #### [facility] [address] [place], [address] Carbon dioxide, total [Moles /volume] in Central venous bloodOrdered By: Major Yi on 12-24-2024 CO2 [Moles/Vol] 19.6 mmol/L Low 21.0-32.0 [facility] Chloride assayOrdered By: Yumiko Yi on 12-24-2024 Chloride [Moles/Vol] 100 mmol/L 98-108 [facility] Erythrocyte distribution wid th ratioOrdered By: Major Yi on 12-24-2024 Erythrocyte distribution width (RBC) [Ratio] 13.4 % 11.6-14.6 [facility] Erythrocyte distribution wid th standard deviationOrdered By: Major Yi on 12-24-2024 Erythrocyte distribution width (RBC) [Ratio] 41.7 fl 35.1-43.9 [facility] Glomerular filtration rate ( GFR) estimation/1.73 sq m using serum, plasma, or whole bOrdered By: Major Yi on 12-24-2024 GFR/1.73 sq M.predicted among non-blacks MDRD (S/P/Bld) [Vol rate/Area] 77 mL/min/{1.73_m2} >60 [facility] Comment on above: mL/min/1.73m2 CKD-EP I Creatinine Equation (2020) [facility] deOrdered By: Major Yi on 12-24-2024 Glucose [Mass/Vol] 306 mg/dL High 74-106 [facility] Comment on above: MANAGEMENT OF PATIEN T CARE PER NURSING PROTOCOL Hematocrit Auto (Bld) [Volum e fraction]Ordered By: Major Yi on 12-24-2024 Hematocrit (Bld) [Volume fraction] 39.7 % Low 40-54 [facility] Hemoglobin measurementOrdere d By: Major Yi on 12-24-2024 Hemoglobin (Bld) [Mass/Vol] 13.5 g/dL 13.0-16.5 [facility] MCV (mean corpuscular volume ) determinationOrdered By: Major Yi on 12-24-2024 MCV (RBC) [Entitic vol] 87.1 fL 80-94 [facility] Mean corpuscular hemoglobin (MCH) determinationOrdered By: Major Yi on 12-24-2024 MCH (RBC) [Entitic mass] 29.6 pg 27.0-32.0 [facility] Mean corpuscular hemoglobin concentration (MCHC) determinationOrdered By: Major Yi on 12-24-2024 MCHC (RBC) [Mass/Vol] 34.0 g/dL 32-36 [facility] Mean platelet volume determi nationOrdered By: Major Yi on 12-24-2024 Platelet mean volume (Bld) [Entitic vol] 11.7 fL 6.2-12.0 [facility] Platelet countOrdered By: Yumiko Yi on 12-24-2024 Platelets (Bld) [#/Vol] 174 10*3/uL 150-450 [facility] Potassium measurement (mass/ volume)Ordered By: Major Yi on 12-24-2024 Potassium (Unsp spec) [Mass/Vol] 4.4 mmol/L 3.3-5.1 [facility] RBC Auto (Bld) [#/Vol]Ordere d By: Major Yi on 12-24-2024 RBC (Bld) [#/Vol] 4.56 10*6/uL Low 4.6-6.2 [facility] Serum creatinine measurement (mass/volume)Ordered By: Major Yi on 12-24-2024 Creatinine [Mass/Vol] 1.01 mg/dL 0.70-1.20 [facility] Serum glucose measurement (m ass/volume)Ordered By: Major Yi on 12-24-2024 Glucose [Mass/Vol] 175 mg/dL High 70-99 [facility] Serum or plasma calcium collin urement (mass/volume)Ordered By: Major Yi on 12-24-2024 Calcium [Mass/Vol] 9.2 mg/dL 7.6-11.0 [facility] Serum or plasma urea nitroge n measurement (mass/volume)Ordered By: Major Yi on 12-24-2024 Urea nitrogen [Mass/Vol] 20 mg/dL High 4-19 [facility] Sodium levelOrdered By: Moshe Yi on 12-24-2024 Sodium [Moles/Vol] 135 mmol/L 133-145 [facility] White blood cell (WBC) count Ordered By: Major iY on 12-24-2024 WBC (Bld) [#/Vol] 10.6 10*3/uL 4.4-11.0 [facility] Bedside Glucoseon 12-23-2024 FINGERSTICK GLU 272 mg/dL High 74-106 [facility] Comment on above: Result Comment: SUSAN GEMENT OF PATIENT CARE PER NURSING PROTOCOL Performed By: #### L 501.080 ####[facility] [address] [facility] [address] [address] [facility] [place], [address] FINGERSTICK GLU 166 mg/dL High 74-106 [facility] Comment on above: Result Comment: SUSAN GEMENT OF PATIENT CARE PER NURSING PROTOCOL Performed By: #### L 501.080 ####[facility] [address] [place], [address] FINGERSTICK GLU 195 mg/dL High [facility]106 [facility] Comment on above: Result Comment: SUSAN GEMENT OF PATIENT CARE PER NURSING PROTOCOL Performed By: #### L 501.080 #### [facility] [address] [place], [address] Consultation - Hospitaliston 12-23-2024 Consultation - Hospitalist [facility] Medical Records Department [address] [place] [address] Consultation - Hospitalist 12/23/24 1608 MR#: [id number] Acct: [id number] Name: MARIA E GUTHRIE Rep #: [id number] : 1950 74 From: Hansel Sultana DO PCP: Dr. Matt Saul MD Status:ADM BAR Location: [place] [address] Assessment Plan Assessment/Plan (1) Right rotator cuff tear arthropathy: PLAN: Plan Patient is a 74-year-old male who presented to [facility] on 12/23/2024 for planned right shoulder [...] is a 74 M who presented to [facility] on 12/23/2024 for planned orthopedic procedure. [...] No other acute concerns at this time. [facility] Medical History Wears hearing aid Wears glasses Wears partial dentures History of steroid therapy Arthritis Dietary restriction Non-smoker History of echocardiogram History of stress test Cardiology follow-up encounter Diabetes Myocardial infarct Hypertension Osteoarthritis Gout Atherosclerosis of coronary artery of [place] heart without angina pectoris Hyperlipidemia Home Medications [...] Type Severity Reaction Status Date / Time Kpxymkw-IDU-VeT Reductase AdvReac Mild myalgias Verified 12/23/24 10:26 Inhibitor (Mlgmfbf-Swm-Wis Reductase Inhibitor) Family History Brother CAD (coronary [...] and well nourished (more content not included)... [facility] MR/POSTOP.ANEon 12-23-2024 MR/POSTOP.[facility] Medical Records Department [address] [place] [address] Anesthesia Postop Eval I 12/23/24 1332 MR#: [id number] Acct: [id number] Name: MARIA E GUTHRIE Rep #: [id number] : 1950 74 From: Priscilla Willard CRNA PCP: Dr. Matt Saul MD Status:REG [facility] Y Race: C Location: [place] [address] Anesthesia: Postop Eval I Current Vital Signs Temperature: 97 F Pulse Rate: 89 Blood Pressure: 145/87 Respiratory Rate: 18 Pulse Ox: 93 Assessment Airway patent: Yes Spontaneous unlabored respirations: Yes nausea: No Vomiting: No Anesthesia Complication: No Fluid Hydration Crystalloid volume administer (ml): 1,300 Total IV fluid infused: 1,300 Progress Note Anesthesia document: Postop Eval 1 completed: Yes 12/23/241332 Date Priscilla Willard INSTANT POTATO PROCESSOR Cosigner Signature: Date CC: Signed [facility] MR/[id number] 12-23-2024 MR/POSTOPAN2 [facility] Medical Records Department [address] [facility] [place] [address] Anesthesia Postop Eval II 12/23/24 1433 MR#: [id number] Acct: [id number] Name: MARIA E GUTHRIE Rep #: [id number] : 1950 74 From: Osei Lubin MD PCP: Dr. Matt Saul MD Status:ADM BAR Y Race: C [facility] Postop Eval I Sum Postop Eval Completion status Anesthesia document: Postop Eval 1 completed: Yes Anesthesia Postop Eval I Summary Anesthesia Postop Eval I Summary: Anesthesia Postop Eval I: Assessment Summary Airway patent Yes 12/23/24 13:32 INSTANT POTATO PROCESSOR.CSIR Spontaneous unlabored Yes 12/23/24 13:32 INSTANT POTATO PROCESSOR.CSIR respirations Mental status nausea No 12/23/24 13:32 INSTANT POTATO PROCESSOR.CSIR Vomiting No 12/23/24 13:32 INSTANT POTATO PROCESSOR.CSIR Anesthesia Postop Eval I: Fluid Summary Crystalloid volume administer 1,300 12/23/24 13:32 INSTANT POTATO PROCESSOR.CSIR (ml) Colloids volume administered ( ml) Blood Product volume administered (ml) Total IV fluid infused 1,300 12/23/24 13:32 INSTANT POTATO PROCESSOR.CSIR Anesthesia Postop Eval I: Summary Notes Anesthesia Complication No 12/23/24 13:32 INSTANT POTATO PROCESSOR.CSIR Anesthesia Complication Comment: Post-operative progress note Anesthesia: Postop Eval II Evaluation Mental status: Awake and Calm Pain Level: 1 nausea: No Vomiting: No Complications Anesthesia Complication: No 12/23/24 1433 Date Osei Lubin MD Cosigner Signature: Date CC: Signed Normal [facility] Magnesiumon 12-23-2024 Magnesium [Mass/Vol] 1.8 mg/dL Normal 1.5-2.2 [facility] Comment on above: Performed By: #### L 501.5200 #### [facility] [employer] [address] [place], [address] Magnesium measurement (mass/ volume)Ordered By: Faheem Barroso on 12-23-2024 Magnesium (Unsp spec) [Mass/Vol] 1.8 mg/dL 1.5-2.2 [facility] Operative Reporton Operative Report [facility] Medical Records Department [address] [place] [address] Operative Report 12/23/24 1322 MR#: [id number] Acct: [id number] Name: MARIA E GUTHRIE Rep #: [id number] : 1950 74 From: Major Yi DO PCP: Dr. Matt Saul MD Status:[facility] Location: [place] [address] Operative Report (Standard) Operative Information Date of Procedure: 12/23/24 Pre-Operative Diagnosis: Right shoulder rotator cuff tear arthropathy Post-Operative Diagnosis: Right shoulder rotator cuff tear arthropathy Surgery/Procedure Performed: Right reverse total shoulder arthroplasty metalsmith helper: Yes Air Traffic Control Specialist: Oneyda Solano Tasks completed by commercial loan assistant: Opening closing, Implanting device, Hemostasis: Electrocautery [...] No Description of surgery: Patient arrived to [facility] morning of the procedure and was [...] in the beachchair position. A well-padded head of english was applied. The nonoperative extremity was placed in a well arm arza. He was then brought into the beachchair [...] cartilaginous carla (more content not included)... Normal [facility] Shoulder min 2 Viewson 12-23 Shoulder min 2 Views [facility] Imaging Services [address] [place] [address] Shoulder min 2 Views MR#: [id number] Acct: [id number] Name: MARIA E GUTHRIE Rep #: [id number] : 1950 M 74 From: Seven Suárez MD PCP: Dr. Matt Saul MD Status: [facility] Study: Shoulder min 2 Views Date of Exam: 12/23/24 Exam# [id number] Ordering Dr: Major Yi DO PROCEDURE: SHOULDER [...] IMPRESSION: Right shoulder reverse arthroplasty. Reading Location: [place] [address] CC: Dr. Matt Saul MD; Dr. Major Yi DO Plush Cutter: Signed [facility] MR/PAT.ANEon 12-04-2024 MR/PAT.ANE [facility] Medical Records Department [address] [place] [address] PAT - Anesthesia 12/04/241946 MR#: [id number] Acct: [id number] Name: MARIA E GUTHRIE Rep #: [id number] : 1950 74 From: Faheem Barroso MD PCP: Dr. 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 Hx Hospitalization No 12/03/24 10:59 Any Problems [...] take am of surgery PONV PONV - wireless store manager: PONV - wireless store manager Female No 12/03/24 10:59 HX of Motion Sickness No 12/03/24 10:59 HX of N/V After Surgery No 12/03/24 10:59 Non-Smoker Yes 12/03/24 10:59 Duration of Surgery greater Yes 12/03/24 10:59 than 60 minutes Number of Risk Factors 2 12/03/24 10:59 PONV Score Moderate Risk 12/03/24 10:59 Height Weight Height Weight: Anesthesia: Height Weight Height 6 ft 04/04/24 14:18 Respiratory Assessment Respiratory Assessment - wireless store manager: Respiratory Tract Infection Hx - wireless store manager Hx Respiratory Tract Infection No 12/03/24 10:59 STOP Sleep Apnea STOP Sleep Apnea - wireless store manager: STOP Sleep Apnea - wireless store manager Hx Hypertension Yes: CONTROLLED WITH MED 12/03/24 [...] Tobacco Use History 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 Tobacco Use Smoking Status Never smoker 12/03/24 10:59 Hx Tobacco Use No 12/03/24 10:59 Years Smoking Packs Smoked per Day Smoking Cessation Date was within the last 15 years Hx Smoking Cessation Date Hx Smoking Cessation Counseling Hematologic Medial History 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 Normal [facility] 12 Lead EKGon 11-27-2024 12 Lead EKG [facility] Cardiovascular Services [address] [place] [address] 12 Lead EKG 11/27/24 0654 MR#: [id number] Acct: [id number] Name: MARIA E GUTHRIE W Rep #: [id number] : 1950 74 From: Seven Grey MD Attending Dr: Dr. Major Yi DO Status: PRE [facility] Ordering Dr: Major Yi DO Date: 11/27/24 Location: [facility] Sex: M C Admitted: [...] Borderline ECG Confirmed by Seven Grey ([id number]), editor at large KARINA GIVENS ([id number]) on 11/27/2024 9:43:00 AM Referred By: Major Yi Confirmed By: Seven Grey 11/27/24 0943 Date Seven Grey MD CC: Dr. Matt Saul MD; Dr. Major Yi DO Signed Normal [facility] Electrocardiogram reportOrde red By: Seven Grey on 11-27-2024 EKG study [facility] Cardiovascular Services [address] [place] [address] 12 Lead EKG 11/27/24 0654 MR#: [id number] Acct: [id number] Name: MARIA E GUTHRIE Rep #:[id number] : 1950 74 From: Seven alcantara MD Attending Dr: Dr. Major Yi DO Status: PRE [facility] Ordering Dr: Major Yi DO Date: 11/27/24 Location: [facility] Sex: M C Admitted: [...] block Borderline ECG Confirmed by Seven Grey ([id number]), editor at large KARINA GIVENS ([id number]) on 59:43:00 AM Referred By: Major Yi Confirmed By: Seven Grey 11/27/24 0943 Date _ Seven Grey MD CC: Dr. Matt Saul MD; Dr. Major Yi DO ~ Signed [facility] Work Phone: Extremity Upper without Cont raon 11-26-2024 Extremity Upper without Contra [facility] Imaging Services [address] [place] [address] [id number] Extremity Upper without Contra MR#: [id number] Acct: [id number] Name: MARIA E GUTHRIE Rep #: [id number] : 1950 M 74 From: Gonzalez Garcia MD PCP: Dr. Matt Saul MD Status: REG CLI Study: Extremity Upper without Contra Date of Exam: 0 11/26/24 Exam# [id number] Ordering Dr: Major Yi DO PROCEDURE: EXTREMITY [...] Matt Saul MD; Dr. Major Yi DO Plush Cutter: Signed Normal [facility] Urgent Care Visit Reporton 0 07-09-2024 Urgent Care Visit Report [facility] [address], [address] [place] [address] OFFICE VISIT Date of Service: 07/09/24 MR#: [id number] Acct: [id number] Name: MARIA E GUTHRIE Rep #: [id number] : 1950 Provider: EDILSON Salinas Age/Sex: 74/M Location: [facility] Status: Signed Intake Vital Signs 04/04/24 14:18 [...] Reasons: RASH ON BACK Chief Complaint: rash Sap Bi Architect Required: No Is patient in pain?: Yes Allergies Zqgngxd-HGY-RrV Reductase Inhibitor (Lnrhdya-Wiw-Mnc Reductase Inhibitor) Adverse Reaction (Mild, Verified 07/09/24 17:33) myalgias Have you fallen in the past year?: No Nurse's Note: rash to left upper buttock/low back x 3-4 days with burning. 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 No powc-lbk-jhflcmg products taken to assist. No other associated symptoms and no other alleviating/aggravatin g factors. ROS Const Constitutional: No other (As above) Exam Const General: cooperative, healthy appearing and no acute distress Nutritional Appearance: average body habitus Orientation: alert and awake HENNY Head: normal to inspection Ears: hearing grossly [...] Rodríguez Signature: Date (if applicable) CC: Normal [facility] Ankle min 3 Viewson 06-19-19 25 Ankle min 3 Views [facility] Imaging Services [address] [place] [address] 142901 Ankle min 3 Views MR#: [id number] Acct: [id number] Name: MARIA E GUTHRIE Rep #: [id number] : 1950 M 74 From: Tenzin Joshua MD PCP: Dr. Matt Saul MD Status: REG CLI Study: Ankle min 3 Views Date of Exam: 06/18/24 Exam# [id number] Ordering Dr: Matt Saul EXAM: XR Right [...] evaluation with CT is recommended. Reading [facility] CC: Dr. Matt Saul MD Plush Cutter: Signed Normal [facility] Foot min 3 Viewson Foot min 3 Views [facility] Imaging Services [address] [place], [place] [id number] Foot min 3 Views MR#: [id number] Acct: [id number] Name: MARIA E GUTHRIE Rep #: [id number] : 1950 M 74 From: Pako de leon MD PCP: Dr. Matt Saul MD Status: REG CLI Study: Foot min 3 Views Date of Exam: 06/18/24 Exam# [id number] Ordering Dr: Matt Saul PROCEDURE: FOOT MIN [...] suggestive of gout. Calcaneal spurs. Reading Location: [id number] CC: Dr. Matt Saul MD Plush Cutter: Signed Normal [facility] Cardiology Visit Reporton Cardiology Visit Report [facility] [address] [place], [place] [address] OFFICE VISIT Date of Service: 04/04/24 MR#: [id number] Acct: [id number] Name: MARIA E GUTHRIE Rep #: [id number] : 1950 Provider: Dr. Nathan Purcell MD Age/Sex: 73/M Location: [facility] Status: Signed HPI HPI History of [...] has been put on P[facility] by the [facility]. From a cardiac standpoint, the patient [...] Monitor Intake Visit Reasons: 1 Y FU Sap Bi Architect Required: No Accompanied by: Self Is patient in pain?: No Allergies Tcjksst-LLM-CeZ Reductase Inhibitor (Hptuusy-Cnn-Zhu Reductase Inhibitor) Adverse Reaction (Mild, Verified 04/04/24 [...] Osteoarthritis Gout Atherosclerosis of coronary artery of [place] heart without angina pectoris PTSD (post-traumatic stress [...] no acu (more content not included)... Normal [facility] CNOVon 02-26-2024 CN Office Visit (GENSWS ) MARIA E GUTHRIE ([id number]) 1950 Date Time Provider Department 02/26/24 1:00 PM MADDIE BERNSTEIN GENS During your visit today, we recorded the following information about you: Maddie Bernstein APRN.CNP 02/26/2024 1:03 PM Signed FOLLOW UP VISIT - ENDOSCOPY Maria E John Maksim 1950 [id number] REFERRING PHYSICIAN: Matt Saul ([facility]) [address] [place] [id number] Maria E Guthrie is a patient I [...] Maddie Bernstein APRN.BALJIT Referring Provider: MATT SAUL [[id number]] Allergies As of Date: 02/26/2024 Noted Allergy Reaction ZOCOR (SIMVASTATIN) 08/15/2006 5 - Intolerance Comments: myalgias Date Reviewed: 02/26/2024 Reviewed by: Maddie Bernstein APRN.ARROW POINT ATTACHER - Fully Assessed Reason for Visit: Follow Up [171] Cmt: Review colonoscopy results. Primary Visit Diagnosis:History of colonic polyps [Z86.0100] Prescriptions as of 02/26/2024 - alirocumab (PRALUENT) 150 mg/mL pen Inject 150 mg subcutaneously. - losartan (COZAAR) 100 mg tablet Take 100 mg by mouth. - fluticasone (FLONASE) 50 mcg/actuation nasal spray Use 1 Palisade in the nose once daily. - cyanocobalamin [...] Status:Closed by MADDIE BERNSTEIN on 02/26/24 Normal [facility] [id number] 02-19-2024 [id number] HNO ID: [id number] Author: ESTELLE BIRD RN Service: ? Author Type: Registered Nurse Type: [id number] Filed: 02/19/2024 12:17 Note Text: The patient received a copy of Colonoscopy discharge instructions that contain information for how to contact the physician who performed the procedure and when to seek medical care. Normal [facility] Colonoscopyon 02-19-2024 [facility] Patient Name: Maria E [...] previous diet. Procedure Code(s): --- Professional --- 77968, Colonoscopy, flexible; with biopsy, single or multiple G0500, Moderate sedation services provided by the same physician or other qualified health rn homecare performing a gastrointestinal endoscopic service that sedation supports, requiring the presence of an independent trained observer to assist in the monitoring of the patient's level of consciousness and physiological status; initial 15 minutes of intra-service time; patient age 5 years or older (additional time may be reported with 73492, as appropriate) Diagnosis Code(s): --- Professional --- Z12.11, Encounter for screening for malignant neoplasm of colon Z86.010, Personal history of colonic polyps K64.8, Other hemorrhoids D12.5, Benign neoplasm of sigmoid colon CPT copyright 2020 [employer]. All rights reserved. The codes documented in this report are preliminary and upon alarm field technician review may be revised to meet current compliance requirements. Attending Participation: I personally performed the entire procedure. Scope In: 11:39:45 AM Scope Out: 11:54:37 AM MD Demetri Sainz MD 02/19/2024 12:01:02 PM This report has been signed electronically by Demetri Lord MD Number of Addenda: 0 Note Initiated On: 02/19/2024 11:28 AM Estimated Blood Loss: Estimated blood loss was minimal. Normal [facility] Colonoscopy Study observatio non 02-19-2024 [facility] Gastrointestinal Endoscopy Patient Name: Maria E [...] previous diet. Procedure Code(s): --- Professional --- 99314, Colonoscopy, flexible; with biopsy, single or multiple G0500, Moderate sedation services provided by the same physician or other qualified health rn homecare performing a gastrointestinal endoscopic service that sedation sup (more content not included)... PROVATION [facility] Radiology Study observation (narrative) [facility] HISTORY PHYSICALon HISTORY PHYSICAL HNO ID: [id number] Author: DEMETRI LORD MD Service: General Surgery [...] Last colonoscopy 06/[address] Park at [facility]. Sedation:Midazolam 5 mg IV, Fentanyl 100 [...] (FLONASE) 50 mcg/actuation nasal spray Use 1 Palisade in the nose once daily. cyanocobalamin (VITAMIN [...] entered by the nurse and reviewed by tx Nursing Notes: Francisca Spann RN 02/16/2024 2:03 [...] The pa (more content not included)... Normal [facility] SURGICAL PATHOLOGYon 024 CASE REPORT Normal [facility] Comment on above: Order Comment: Speci men Type: TISSUE SPECIMEN Ordering Facility: [facility] Address: [address] [place] [address] Result Comment: Surg ical Pathology Report Case: [id number] Authorizing Provider: Demetri Lord MD Collected: 02/19/2024 11:51 AM Ordering Location: Ambulatory Surgery Received: 02/19/2024 12:46 PM Pathologist: Tracie Hwang MD Specimen: Colon, Sigmoid, Polyp Performed By: #### S #### [facility] CLIA [id number] [address] [place] [address] [place] FINAL DIAGNOSIS Normal [facility] Comment on above: Order Comment: Speci men Type: TISSUE SPECIMEN Ordering Facility: [facility] Address: [address] [place] [address] Result Comment: A. C olon, sigmoid, polyp, polypectomy -Tubular adenoma Performed By: #### S #### [facility] CLIA [id number] [address] [place] [address] [place] FINAL PERFORMING LAB Normal [facility] Comment on above: Order Comment: Speci men Type: TISSUE SPECIMEN Ordering Facility: [facility] Address: [address] [place] [address] Result Comment: Diag nostic interpretation performed at [facility], [address] [place] [address] CLIA# [id number] Career Guidance Counselor: Karel Singer M.D. Performed By: #### S #### [facility] CLIA [id number] [address] [place] [address] [place] GROSS DESCRIPTION Normal [facility] Comment on above: Order Comment: Speci men Type: TISSUE SPECIMEN Ordering Facility: [facility] Address: [address] [place] [address] Result Comment: A. Luna olon, Sigmoid, Polyp Received in formalin is one piece of simon, soft tissue measuring 0.4 x 0.3 x 0.2 cm. Totally submitted in one cassette. KDK February 19, 2024 7:33 PM Gross examination performed at [facility], [address] [place] [address] Performed By: #### S #### [facility] CLIA [id number] [address] [place] [id number] CNOVon 02-16-2024 CNOV Office Visit (GENSWS ) MARIA E GUTHRIE ([id number]) 1950 Date Time Provider Department 02/16/24 2:00 [...] Last colonoscopy 06/[address] Park at [facility]. Sedation:Midazolam 5 mg IV, Fentanyl 100 [...] (FLONASE) 50 mcg/actuation nasal spray Use 1 Palisade in the nose once daily. cyanocobalamin (VITAMIN [...] entered by the nurse and reviewed by tx Nursing Notes: Francisca Spann RN 02/16/2024 2:03 [...] stent. Respir (more content not included)... Normal [facility] Giovanni [facility]20[facility] E [facility]UTHRIE ([id number]) 1950 M Date Time Provider Department 02/16/24 MOLLY BERNSTEIN During your visit today, we recorded the following information about you: Melanie Marcelino 02/16/2024 2:37 PM Signed 02-19-2024 Colonoscopy concepción EFREN Cook prep, nurse went over instructions yudy has direct number to contact for any questions or concerns., Instructed patient to arrive at 1045 in [facility] Allergies As of Date: 02/16/2024 Noted Allergy Reaction ZOCOR (SIMVASTATIN) 08/15/2006 5 - Intolerance Comments: myalgias Date Reviewed: 02/16/2024 Reviewed by: Maddie Bernstein APRN.ARROW POINT ATTACHER - Fully Assessed Reason for Visit: 02-19-2024 Colonscoopy [Other] Prescriptions as of 03/18/2024 - alirocumab (PRALUENT) 150 mg/mL pen Inject 150 mg subcutaneously. - losartan (COZAAR) 100 mg tablet Take 100 mg by mouth. - fluticasone (FLONASE) 50 mcg/actuation nasal spray Use 1 Palisade in the nose once daily. - cyanocobalamin [...] Encounter Status:Closed by MELANIE MARCELINO on 03/18/24 [facility] No Panel InformationOrdered By: Joe Joshua on 08-18-2023 Troponin I High Sensitivity 9 pg/mL 3.0-78.0 [facility] Comment on above: Please Note: New Nighat t Units and Gender Specific Reference Ranges. For more information see Policy Stat Procedure [place] High Sensitivity Troponin (TNIH) and attachments. Absolute lymphocyte countOrd ered By: Joe Joshua on 08-17-2023 Lymphocytes Auto (Unsp spec) [#/Vol] 2.02 10*3/uL 0.83-4.51 [facility] Automated lymphocyte count a s percentage of total leukocytesOrdered By: Joe Joshua on 08-17-2023 Lymphocytes/100 WBC Auto (Unsp spec) 49.8 % 19-41 [facility] Basophil percentageOrdered B y: Joe Joshua on 08-17-2023 Basophils/100 WBC (Bld) 0.5 % 0-1 [facility] Chloride [Moles/Vol] 101 mmol/L 98-107 [facility] Eosinophils/100 WBC (Bld) 0.7 % 0-5 [facility] Glucose [Mass/Vol] 195 mg/dL 74-106 [facility] Comment on above: Fasting Glucose resu lt greater than or equal to 126 mg/dL suggests DIABETES MELLITUS per A.D.A. criteria. Hemoglobin (Bld) [Mass/Vol] 15.4 g/dL 13.0-16.5 [facility] Monocytes/100 WBC (Bld) 10.1 % 0-10 [facility] Neutrophils (Bld) [#/Vol] 1.6 10*3/uL 2.0-7.7 [facility] Neutrophils/100 WBC (Bld) 38.9 % 47-70 [facility] Potassium [Moles/Vol] 3.1 mmol/L 3.5-5.1 [facility] Sodium [Moles/Vol] 135 mmol/L 136-145 [facility] WBC (Bld) [#/Vol] 4.1 10*3/uL 4.4-11.0 [facility] Determination of erythrocyte mean corpuscular volume (MCV)Ordered By: Joe Joshua on 08-17-2023 MCV (RBC) [Entitic vol] 87.0 fL 80-94 [facility] Erythrocyte distribution wid th ratioOrdered By: Joe Joshua on 08-17-2023 Erythrocyte distribution width (RBC) [Ratio] 13.0 % 11.6-14.6 [facility] Erythrocyte distribution wid th standard deviationOrdered By: Joe Joshua on 08-17-2023 Erythrocyte distribution width (RBC) [Entitic vol] 40.8 fL 35.1-43.9 [facility] Hematocrit Auto (Bld) [Volum e fraction]Ordered By: Joe Joshua on 08-17-2023 Hematocrit (Bld) [Volume fraction] 45.4 % 40-54 [facility] Immature granulocytes/100 WB C Auto (Bld)Ordered By: Joe Joshua on 08-17-2023 Immature granulocytes/100 WBC (Bld) 0.000 % 0.0-0.9 [facility] Comment on above: IG% - Immature Granu locytes (promyelocytes, myelocytes and metamyelocytes) > 1% indicates that a LEFT SHIFT is Present. Laboratory - Chemistry and C hemistry - challengeOrdered By: Joe Joshua on 08-17-2023 CO2 [Moles/Vol] 29.0 mmol/L 21.0-32.0 [facility] Urea nitrogen/Creatinine [Mass ratio] 18.5 mg/mg 10-20 [facility] Laboratory - Hematology and Cell countsOrdered By: Joe Joshua on 08-17-2023 MCH (RBC) [Entitic mass] 29.5 pg 27.0-32.0 [facility] MCHC (RBC) [Mass/Vol] 33.9 g/dL 32-36 [facility] Nucleated RBC/100 WBC (Bld) [Ratio] 0 % 0-5 [facility] Platelet mean volume (Bld) [Entitic vol] 10.7 fL 6.2-12.0 [facility] Platelets (Bld) [#/Vol] 147 10*3/uL 150-450 [facility] No Panel InformationOrdered By: Joe Joshua on 08-17-2023 D-Dimer Quantitative (PE/DVT) 0.44 FEU/ug/m 0.27-0.49 [facility] Comment on above: NORMAL D-Dimer level (<0.50) indicates no DVT or PE. Estimated Creatinine Clearance Calc 72.22 ml/min [facility] Estimated GFR (MDRD) Amer 97 mL/min >60 [facility] Comment on above: GFR Calc Estimated GFR (MDRD) Non-Af Amer 80 mL/min >60 [facility] Comment on above: Non- GFR Calc RBC Auto (Bld) [#/Vol]Ordere d By: Joe Joshua on 08-17-2023 RBC (Bld) [#/Vol] 5.22 10*6/uL 4.6-6.2 [facility] Serum or plasma calcium collin urement (mass/volume)Ordered By: Joe Joshua on 08-17-2023 Calcium [Mass/Vol] 9.4 mg/dL 8.5-10.1 [facility] Serum or plasma creatinine m easurement (mass/volume)Ordered By: Joe Joshua on 08-17-2023 Creatinine [Mass/Vol] 0.97 mg/dL 0.70-1.30 [facility] Comment on above: The validity of the calculated GFR & GFRAA in patients over 70 years has not been determined. Clinical correlation is essential. Serum or plasma urea nitroge n measurement (mass/volume)Ordered By: Joe Joshua on 08-17-2023 Urea nitrogen [Mass/Vol] 18 mg/dL 7-18 [facility] Thin prep Papanicolaou smear with manual screeningOrdered By: Joe Joshua on 08-17-2023 Thin prep Papanicolaou smear with manual screening 5 5-15 [facility] No Panel Informationon 05-17 Influenza Types A,B Rapid (Clinic) Pos FLU A &Neg FLU B [facility] Office Visiton 11-08-2016 Fall risk assessment No [facility] Work Phone: [phone] Protein mass conc Done [facility] Work Phone: [phone] Chart Maintenanceon 11-07-19 17 Left ventricular Ejection fraction 75 % [facility] Work Phone: Office Visiton 03-29-2016 Dietary management education, guidance, and counseling (procedure) yes Invalid Interpretation Code [facility] Work Phone: [phone] Documentation of current medications (procedure) Done Invalid Interpretation Code [facility] Work Phone: [phone] Tobacco smoking status NHIS Never smoker [facility] [employer] Work Phone: [phone] Tobacco use CPHS Never smoker Invalid Interpretation Code [facility] Work Phone: [phone] Clinical Lists Update: Prelo control panel assembler 12-22-2015 Alanine aminotransferase (ALT) 45 U/L [facility] Work Phone: [phone] Albumin 4.1 g/dL [facility] Work Phone: [phone] Alkaline phosphatase (ALP) 51 U/L Invalid Interpretation Code [facility] Work Phone: [phone] ALP enzyme act/vol (Bld) 51 U/L [facility] Work Phone: [phone] Anion gap 16 mmol/L Invalid Interpretation Code [facility] Work Phone: [phone] Anion gap molar conc 16 mmol/L [facility] Work Phone: [phone] Aspartate aminotransferase (AST) 40 U/L [facility] Work Phone: [phone] Bilirubin (total) 0.5 mg/dL [facility] Work Phone: [phone] Calcium 8.9 mg/dL [facility] Work Phone: [phone] Chloride 109 mmol/L High [facility] Work Phone: [phone] Cholesterol 202 mg/dL High [facility] Work Phone: [phone] CO2 19 mmol/L Low [facility] Work Phone: [phone] CO2 ppres (BldV) 19 mmol/L Low [facility] Work Phone: [phone] Creatinine 1.0 mg/dL [facility] Work Phone: [phone] Erythrocyte distribution width Ratio (RBC) 13.6 % [facility] Work Phone: [phone] Erythrocytes (RBC) 5.69 10*6/uL Invalid Interpretation Code [facility] Work Phone: [phone] Glucose 117 mg/dL Invalid Interpretation Code [facility] Work Phone: [phone] Glucose mass conc 117 mg/dL [facility] Work Phone: [phone] HbA1c 6.5 % High [facility] Work Phone: [phone] HDL Cholesterol 45 mg/dL [facility] Work Phone: [phone] Hematocrit (HCT) 49.1 % Invalid Interpretation Code [facility] Work Phone: [phone] Hematocrit Volume Fraction (Bld) 49.1 % [facility] Work Phone: [phone] Hemoglobin (HGB) 16.6 g/dL [facility] Work Phone: [phone] LDL Cholesterol 130 mg/dL High [facility] Work Phone: [phone] Magnesium 2.3 mg/dL [facility] Work Phone: [phone] MCH 29.2 pg Invalid Interpretation Code [facility] Work Phone: [phone] MCH Entitic mass (RBC) 29.2 pg [facility] Work Phone: [phone] MCHC 33.8 g/dL Invalid Interpretation Code [facility] Work Phone: [phone] MCHC mass conc (RBC) 33.8 g/dL [facility] Work Phone: [phone] MCV 86.3 fL Invalid Interpretation Code [facility] Work Phone: [phone] MCV Entitic volume (RBC) 86.3 fL [facility] Work Phone: [phone] Platelets 245 10*3/mm3 Invalid Interpretation Code [facility] Work Phone: [phone] Platelets #/vol (Bld) 245 10*3/mm3 [facility] Work Phone: [phone] Potassium 3.9 mmol/L [facility] Work Phone: [phone] Protein 7.3 g/dL [facility] Work Phone: [phone] RBC #/vol (Bld) 5.69 10*6/uL [facility] Work Phone: [phone] RDW-CA 13.6 % Invalid Interpretation Code [facility] Work Phone: [phone] Sodium 140 mmol/L [facility] Work Phone: [phone] Thyroid stimulating hormone (TSH) 1.23 u[iU]/mL [facility] Work Phone: [phone] Thyroxine (T4) free 1.05 ng/dL [facility] Work Phone: [phone] Triglyceride 272 mg/dL High [facility] Work Phone: [phone] Urea nitrogen 19 mg/dL [facility] [facility] Work Phone: [phone] WBC #/vol (Bld) 4.84 10*3/uL [facility] [facility] Work Phone: [phone] WBC (Leukocytes) 4.84 10*3/uL Invalid Interpretation Code [facility] [employer] [facility] Work Phone: [phone] Lab Report: Lipid Profileon 04-08-2015 very low density lipoproteins 35 mg/dL 5-40 [facility] [facility] Work Phone: [phone] Lab Report: Liver Profileon 04-08-2015 Bilirubin (direct) 0.12 mg/dL 0.00-0.30 [facility] [facility] Work Phone: [phone] Globulin 3.2 g/dL Invalid Interpretation Code 2.3-3.5 [facility] Work Phone: [phone] Globulin mass conc (S) 3.2 g/dL 2.3-3.5 [facility] Work Phone: [phone] Clinical Lists Update: Prelo control panel assembler 04-02-2014 Globulin 3.0 g/dL Invalid Interpretation Code [facility] Work Phone: [phone] Globulin mass conc (S) 3.0 g/dL [facility] [facility] Work Phone: [phone] External Other: Preferred Me thod of Contacton 04-02-2014 methcontact secmsg [facility] [facility] Work Phone: [phone] Patient's prefered method of contact secmsg Invalid Interpretation Code [facility] [facility] Work Phone: [phone] Lab Report: Liver Profileon 04-02-2014 ALK P 49 U/L Critically low 50-136 [facility] [facility] Work Phone: [phone] GE use only - for Link[employer]ic import when terms are not otherwise specified 49 U/L Critically low 50-136 [facility] [facility] Work Phone: [phone] Office Visiton 03-31-2014 cardiac risk group C [facility] [employer] Work Phone: [phone] General cardiovascular disease 10Y risk [#] [place] [facility] [facility] Work Phone: Vital Signs Date Time Vital Sign Value Performing Clinician Alexa bedoya 12-24-2024 08:33-0400 Heart rate 58 /min Dr. Matt Saul MD Work Phone: [facility] 12-24-2024 08:26-0400 Body temperature 97.6 [degF] Dr. Matt Saul MD Work Phone: [facility] 12-24-2024 08:26-0400 Diastolic blood pressure 71 mm[Hg] Dr. Matt Saul MD Work Phone: 2(249)148-825257 [place] [address] 12-24-2024 08:26-0400 Respiratory rate 18 /min Dr. Matt Saul MD Work Phone: 6(740)464-782092 [address] 12-24-2024 08:26-0400 SaO2% (BldA) [Mass fraction] 95 % Dr. Matt Saul MD Work Phone: 7(974)608-168692 [address] 12-24-2024 08:26-0400 Systolic blood pressure 128 mm[Hg] Dr. Matt Saul MD Work Phone: 6(445)442-739492 [address] 12-23-2024 18:43-0400 Inhaled oxygen flow rate 2 L/min Dr. Matt Saul MD Work Phone: [facility] 12-23-2024 14:44-0400 Body height 182.[address] Matt Saul MD Work Phone: 0(297)117-798792 [address] 12-23-2024 14:44-0400 Body mass index (BMI) [Ratio] 26.9 kg/m2 Dr. Matt Saul MD Work Phone: 5(945)949-483957 [place] [address] 12-23-2024 14:44-0400 Body weight [address] Matt Saul MD Work Phone: 3(603)595-470538 [place] [address] 04-04-2024 14:18-0500 Body height 182.[address] Matt Saul MD Work Phone: 9(708)995-710792 [address] 04-04-2024 14:18-0500 Body mass index (BMI) [Ratio] 27.2 kg/m2 Dr. Matt Saul MD Work Phone: [facility] 04-04-2024 14:18-0500 Body weight 91.[address] Matt Saul MD Work Phone: [facility] 04-04-2024 14:18-0500 Diastolic blood pressure 90 mm[Hg] Dr. Matt Saul MD Work Phone: [facility] 04-04-2024 14:18-0500 Heart rate 69 /min Dr. Matt Saul MD Work Phone: [facility] 04-04-2024 14:18-0500 Respiratory rate 16 /min Dr. Matt Saul MD Work Phone: [facility] 04-04-2024 14:18-0500 Systolic blood pressure 132 mm[Hg] Dr. Matt Saul MD Work Phone: [facility] 02-19-2024 12:20-0500 Diastolic blood pressure 72 mm[Hg] Demetri Lord MD Work Phone: [facility] 02-19-2024 12:20-0500 Heart rate 55 /min Demetri Lord MD Work Phone: [facility] 02-19-2024 12:20-0500 Respiratory rate 16 /min Demetri Lord MD Work Phone: [facility] 02-19-2024 12:20-0500 SaO2% (BldA) [Mass fraction] 95 % Demetri Lord MD Work Phone: [facility] 02-19-2024 12:20-0500 Systolic blood pressure 115 mm[Hg] Demetri Lord MD Work Phone: [facility] 02-19-2024 10:40-0500 Body mass index (BMI) [Ratio] 27.18 kg/m2 Demetri Lord MD Work Phone: [facility] 02-19-2024 10:40-0500 Body temperature 98.4 [degF] Demetri Lord MD Work Phone: [facility] 02-19-2024 10:40-0500 Body weight 90.9 kg Demetri Lord MD Work Phone: [facility] 02-16-2024 14:03-0400 Body height 182.9 cm Maddie Jakob DAIRY NUTRITION SPECIALIST.ARROW POINT ATTACHER Work Phone: [facility] 02-16-2024 14:03-0400 Body mass index (BMI) [Ratio] 27.18 kg/m2 Maddie Jakob DAIRY NUTRITION SPECIALIST.ARROW POINT ATTACHER Work Phone: [facility] 02-16-2024 14:03-0400 Body temperature 97.81 [degF] Maddie Jakob DAIRY NUTRITION SPECIALIST.ARROW POINT ATTACHER Work Phone: [facility] 02-16-2024 14:03-0400 Body weight 90.9 kg Maddie Jakob DAIRY NUTRITION SPECIALIST.ARROW POINT ATTACHER Work Phone: [facility] 02-16-2024 14:03-0400 Diastolic blood pressure 82 mm[Hg] Maddie Jakob DAIRY NUTRITION SPECIALIST.ARROW POINT ATTACHER Work Phone: [facility] 02-16-2024 14:03-0400 Heart rate 80 /min Maddie Jakob DAIRY NUTRITION SPECIALIST.ARROW POINT ATTACHER Work Phone: [facility] 02-16-2024 14:03-0400 SaO2% (BldA) [Mass fraction] 92 % Maddie Jakob DAIRY NUTRITION SPECIALIST.ARROW POINT ATTACHER Work Phone: [facility] 02-16-2024 14:03-0400 Systolic blood pressure 138 mm[Hg] Maddie Jakob DAIRY NUTRITION SPECIALIST.ARROW POINT ATTACHER Work Phone: [facility] 08-18-2023 01:00-0400 Body temperature 98.5 [degF] Dr. Matt Saul Work Phone: [facility] 08-18-2023 01:00-0400 Diastolic blood pressure 91 mm[Hg] Dr. Matt Saul Work Phone: [facility] 08-18-2023 01:00-0400 Heart rate 59 /min Dr. Matt Saul Work Phone: [facility] 08-18-2023 01:00-0400 Respiratory rate 18 /min Dr. Matt Saul Work Phone: 8(612)548-602692 [address] 08-18-2023 01:00-0400 SaO2% (BldA) [Mass fraction] 98 % Dr. Matt Saul Work Phone: [facility] 08-18-2023 01:00-0400 Systolic blood pressure 148 mm[Hg] Dr. Matt Saul Work Phone: 5(398)452-574538 [place] [address] 08-17-2023 21:03-0400 Body height 182.[address] Matt Saul Work Phone: 0(479)658-131657 [place] [address] 08-17-2023 21:03-0400 Body mass index (BMI) [Ratio] 27.7 kg/m2 Dr. Matt Saul Work Phone: 6(436)617-931192 [address] 08-17-2023 21:03-0400 Body weight 92.[address] Matt Saul Work Phone: 6(233)969-117757 [place] [address] 05-17-2023 11:30-0500 Body mass index (BMI) [Ratio] 28.2 kg/m2 Dr. Matt Saul Work Phone: 5(893)478-617438 [place] [address] 05-17-2023 11:30-0500 Body temperature 97.8 [degF] Dr. Matt Saul Work Phone: 2(255)305-781638 [place] [address] 05-17-2023 11:30-0500 Body weight 94.[address] Matt Saul Work Phone: 3(424)816-602057 [place] [address] 05-17-2023 11:30-0500 Diastolic blood pressure 76 mm[Hg] Dr. Matt Saul Work Phone: 6(764)238-641592 [address] 05-17-2023 11:30-0500 Heart rate 71 /min Dr. Matt Saul Work Phone: [facility] 05-17-2023 11:30-0500 Respiratory rate 16 /min Dr. Matt Saul Work Phone: [facility] 05-17-2023 11:30-0500 SaO2% (BldA) [Mass fraction] 96 % Dr. Matt Saul Work Phone: [facility] 05-17-2023 11:30-0500 Systolic blood pressure 140 mm[Hg] Dr. Matt Saul Work Phone: [facility] 02-08-2023 13:58-0400 Body height 182.[address] Armond Saul Work Phone: 3(058)118-151092 [address] 02-08-2022 13:51-0400 Body height 182.[address] Armond Saul Work Phone: 4(458)353-426092 [address] 02-08-2022 13:51-0400 Body mass index (BMI) [Ratio] 26.9 kg/m2 Dr. Armond Saul Work Phone: 8(154)136-826538 [place] [address] 02-08-2022 13:51-0400 Body mass index (BMI) [Ratio] 28 kg/m2 Dr. Armond Saul Work Phone: [facility] 02-08-2022 13:51-0400 Body weight 90.[address] Armond Saul Work Phone: [facility] 02-08-2022 13:51-0400 Body weight 93.[address] Armond Saul Work Phone: [facility] 02-08-2022 13:51-0400 Diastolic blood pressure 91 mm[Hg] Dr. Armond Saul Work Phone: [facility] 02-08-2022 13:51-0400 Diastolic blood pressure 84 mm[Hg] Dr. Armond Saul Work Phone: [facility] 02-08-2022 13:51-0400 Heart rate 70 /min Dr. Armond Saul Work Phone: [facility] 02-08-2022 13:51-0400 Heart rate 67 /min Dr. Armond Saul Work Phone: [facility] 02-08-2022 13:51-0400 Respiratory rate 16 /min Dr. Armond Saul Work Phone: [facility] 02-08-2022 13:51-0400 Respiratory rate 18 /min Dr. Armond Saul Work Phone: [facility] 02-08-2022 13:51-0400 SaO2% (BldA) [Mass fraction] 95 % Dr. Armond Saul Work Phone: [facility] 02-08-2022 13:51-0400 SaO2% (BldA) [Mass fraction] 94 % Dr. Armond Saul Work Phone: [facility] 02-08-2022 13:51-0400 Systolic blood pressure 155 mm[Hg] Dr. Armond Saul Work Phone: [facility] 02-08-2022 13:51-0400 Systolic blood pressure 132 mm[Hg] Dr. Armond Saul Work Phone: [facility] 11-08-2016 13:10-0400 BMI (Body Mass Index) 28.87 kg/m2 [facility] Work Phone: 11-08-2016 13:10-0400 BP Diastolic 68 mm[Hg] [facility] Work Phone: 11-08-2016 13:10-0400 BP Systolic 130 mm[Hg] [facility] Work Phone: 11-08-2016 13:10-0400 Height 180.34 cm [facility] Work Phone: 11-08-2016 13:10-0400 Pulse (Heart Rate) 58 /min [facility] Work Phone: 11-08-2016 13:10-0400 [...] Provider Facility Start: 02-26-2025 ambulatory Oneyda Solano Facility:[facility] Start: 01-15-2025 Registered Recurring Oneyda Solano PA -Physical Therapy Work Phone: Start: 01-06-2025 End: 01-06-[address] Matt Saul MD Work Phone: -Laboratory Specimen Start: 01-06-2025 End: 01-06-[address] Matt Saul MD -Laboratory Specimen Work Phone: Start: 01-06-2025 End: 01-06-2025 ambulatory Matt Saul Facility:[facility] Start: 12-26-2024 Encounter for other preprocedural examination [facility] Start: 12-26-2024 Encounter for preprocedural cardiovascular examination [facility] Start: 12-24-2024 Non-patient / Non-visit Dr. Yumiko Carrillo MD -[facility] Work Phone: Start: 12-23-2024 Non-patient / Non-visit [facility] Work Phone: Start: 12-23-2024 End: 12-24-2024 ambulatory Major Yi Facility:[facility] Start: 12-23-2024 End: 12-24-2024 Evaluation and management of inpatient Dr. Major Yi DO -Medical Surgical 3 Work Phone: Start: 12-23-2024 End: 12-24-[address] Matt Saul MD Work Phone: -Medical Surgical 3 Start: 11-27-2024 ambulatory Major Carrascoi ty:[facility] Start: 11-27-2024 Non-patient / Non-visit Dr. Seven Grey MD -[facility] Work Phone: Start: 11-26-2024 End: 11-26-[address] Matt Saul MD Work Phone: -Cat Scan [facility] Start: 11-26-2024 End: 11-26-[address] Major Yi DO -Cat Scan [facility] Work Phone: Start: 11-26-2024 End: 11-26-2024 ambulatory Major Yi Facility:[facility] Start: 07-09-2024 End: 07-09-2024 ambulatory Yang WAGGONER Facility:[facility] Start: 06-18-2024 End: 06-18-[address] Matt Saul MD Work Phone: [facility] Work Phone: Start: 06-18-2024 End: 06-18-[address] Matt Saul MD -Radiology, [place] Work Phone: Start: 06-18-2024 End: 06-18-2024 ambulatory Matt [facility] Facility:[facility] Start: 04-04-2024 End: 04-04-[address] Nathan Purcell MD -[facility] Work Phone: Start: 04-04-2024 End: 04-04-2024 ambulatory Nathan Purcell Facility:[facility] Start: 02-26-2024 End: 02-26-2024 ambulatory [facility] Facility:[facility] Start: 02-26-2024 End: 02-26-2024 Patient encounter procedure Maddie Bernstein APRN.ARROW POINT ATTACHER Work Phone: General Surgery Comment on above: History of colonic p olyps (Primary Dx) Start: 02-19-2024 End: 02-19-2024 ambulatory [facility] Facility:[facility] Start: 02-19-2024 End: 02-19-2024 Subsequent hospital visit by physician Demetri Lord MD Work Phone: Ambulatory Surgery Comment on above: History of colonic p olyps [Z86.0100] Start: 02-16-2024 End: 02-16-2024 ambulatory [facility] Facility:[facility] Start: 02-16-2024 End: 02-16-2024 Patient encounter procedure Maddie Bernstein APRN.ARROW POINT ATTACHER Work Phone: General Surgery Comment on above: History of colonic p olyps (Primary Dx); Screen for colon cancer Start: 02-16-2024 End: 03-18-2024 Telephone encounter Molly VEGA General Surgery Comment on above: 02-19-2024 Colonscoo py Start: 08-17-2023 End: 08-18-2023 Emergency department patient visit Dr. Matt Saul Work Phone: [facility] Department Work Phone: Start: 05-17-2023 End: 05-17-[address] Matt Saul Work Phone: [facility] Work Phone: Start: 03-15-2023 Non-patient / Non-visit Dr. Jabier Saul Work Phone: [facility] Work Phone: Start: 03-14-2023 Non-patient / Non-visit Dr. Jabier Saul Work Phone: [facility] Start: 03-14-2023 End: 03-14-[address] Armond Saul Work Phone: [facility] Work Phone: Start: 03-14-2023 End: 03-14-[address] Armond Saul Work Phone: [facility] Work Phone: Start: 02-08-2023 End: 02-08-[address] Armond Saul Work Phone: [facility] Work Phone: Start: 05-20-2022 Non-patient / Non-visit Dr. Jabier Saul Work Phone: [facility] Start: 05-17-2022 Non-patient / Non-visit Dr. Jabier Saul Work Phone: [facility] Start: 05-17-2022 End: 05-17-[address] Armond Saul Work Phone: [facility] Work Phone: Start: 05-17-2022 End: 05-17-[address] [facility]ond [facility] Start: 05-04-[address] Rowdy Saul Work Phone: [facility] Start: 02-08-2022 End: 02-08-[address] Armond Saul Work Phone: [facility] Procedures Date Procedure Procedure [...] dx w/collj spec when pfrmd Maddie Bernstein DAIRY NUTRITION SPECIALIST.ARROW POINT ATTACHER Work Phone: Start: 02-19-2024 Colonoscopy Demetri abernathy [...] Start: 04-02-2014 Lipid 1996 panel - S amrciano or Plasma Maddie Bernstein APRN.ARROW POINT ATTACHER Work Phone: Start: 03-31-2014 End: 04-02-2014 *Hepatic [...] P,Tdap,Td Vaccine (4 - Td or Tdap) [facility] Start: 02-18-2027 Screening for malign ant neoplasm of colon [facility] Start: 12-24-2024 Patient discharge [facility] Start: 12-23-2024 Care regimes management [facility] Start: 12-23-2024 Notification of physician [facility] Start: 12-23-2024 [facility] Start: 12-23-2024 Application of intermittent pneumatic compression device [facility] Start: 12-23-2024 Following clinical p athway protocol [facility] Start: 12-23-2024 Anes arthroscopic to bernard shoulder replacement ANESTH SHOULDER REPLACEMENT [facility] Start: 12-23-2024 Prosthetic total arthroplasty of left shoulder RECONSTRUCT SHOULDER JOINT [facility] Start: 12-23-2024 Admission procedure [facility] Start: 12-23-2024 Ambulation therapy management [facility] Start: 12-23-2024 Application of device [facility] Start: 12-23-2024 Assessment of risk o f venous thromboembolism [facility] Start: 12-23-2024 Catheterization of vein [facility] Start: 12-23-2024 Following clinical p athway protocol [facility] Start: 12-23-2024 Incentive spirometry [facility] Start: 12-23-2024 Introduction of urin angeline catheter [facility] Start: 12-23-2024 Measuring intake and output [facility] Start: 12-23-2024 Neurovascular assessment [facility] Start: 12-23-2024 Patient education [facility] Start: 12-23-2024 Procedure discontinued [facility] Start: 12-23-2024 Provision of activit y privileges [facility] Start: 12-23-2024 Recommendation to co ritika with treatment [facility] Start: 12-23-2024 Referral to occupati onal therapist [facility] Start: 12-23-2024 Vital signs measurements [facility] Start: 12-23-2024 Wound care [facility] Start: 12-23-2024 [facility] Start: 12-23-2024 Consultation [facility] Start: 02-26-2024 End: 02-26-2024 Patient encounter procedure 02/26/2024 1:00 PM EST Office Visit General Surgery [address] [place] [address] Maddie Bernstein APRN.ARROW POINT ATTACHER [address] [place] [address] Colonsocopy follow up 02-19-2024 General Surgery Comment on above: Colonsocopy follow u p 02-19-2024 Start: 02-19-2024 End: 02-19-2024 Patient encounter procedure 02/19/2024 11:45 AM EST Appointment Ambulatory Surgery [address] [place] [address] Demetri Lord MD [address] [place] [address] Ambulatory Surgery Start: 08-18-2023 [facility] Start: 08-17-2023 [facility] Start: 07-01-2023 Screening for malign ant neoplasm of colon [facility] Start: 04-17-2023 Advance Directive Discussion Advance Directive Discussion [facility] Start: 03-21-2022 Diabetes Screening Diabetes Screenin g [facility] Start: 11-15-2021 Pneumococcal Vaccine : 65+ (2 of 2 - PPSV23 or PCV20) Pneumococcal Vaccine: 65+ (2 of 2 - PPSV23 or PCV20) [facility] Start: 04-02-2019 Lipid panel Lipid Screening [facility] Start: 05-11-2017 End: 05-11-2017 Appointment Appointment [facility] Work Phone: Start: 11-08-2016 End: 11-08-2016 Appointment Appointment [facility] Work Phone: Start: 11-08-2016 End: 11-08-2016 *Hepatic Function Panel *Hepatic Function Panel [facility] Work Phone: Start: 11-08-2016 End: 11-08-2016 GERRY GARRETT [facility] Work Phone: Start: 11-08-2016 End: 11-08-2016 Follow Up Appt 6 months Follow Up Appt 6 months [facility] Work Phone: Start: 11-08-2016 End: 11-08-2016 Lipid 1996 panel *Lipid Profile CC PCP [facility] Work Phone: Start: 10-19-2016 End: 11-08-2016 *Hepatic Function Panel *Hepatic Function Panel [facility] Work Phone: Start: 10-19-2016 [...] Lipid panel [AGGREGATE] *Lipid Profile CC PCP [facility] Work Phone: Start: 03-31-2015 End: 04-08-2015 *Hepatic Function Panel *Hepatic Function Panel [facility] Work Phone: Start: 03-31-2015 End: 03-31-2015 GERRY GARRETT [facility] Work Phone: Start: 03-31-2015 End: 03-31-2015 Follow Up Appt 1 year Follow Up Appt 1 year [facility] Work Phone: Start: 03-31-2015 End: 04-08-2015 Lipid panel [AGGREGATE] *Lipid Profile CC PCP [facility] Work Phone: Start: 12-29-2014 End: 12-30-2014 Stress Echocardiogram (treadmill) Stress Echocardiogram (treadmill) [facility] Work Phone: Start: 03-31-2014 End: 04-02-2014 *Hepatic Function Panel *Hepatic Function Panel [facility] Work Phone: Start: 03-31-2014 End: 03-31-2014 GERRY GERRY [facility] Work Phone: Start: 03-31-2014 End: 03-31-2014 Follow Up Appt 1 year Follow Up Appt 1 year [facility] Work Phone: Start: 03-31-2014 End: 04-02-2014 Lipid panel [AGGREGATE] *Lipid Profile CC PCP [facility] Work Phone: Start: 03-31-2014 End: 03-31-2014 Stress Echocardiogram (treadmill) Stress Echocardiogram (treadmill) [facility] Work Phone: Start: 06-10-2013 End: 06-10-2013 GERRY GERRY [facility] Work Phone: Start: 06-10-2013 End: 06-10-2013 Follow Up Appt 1 year Follow Up Appt 1 year [facility] Work Phone: Start: 03-25-2013 End: 03-25-2013 GERRY GERRY [facility] Work Phone: Start: 03-25-2013 End: 03-25-2013 Follow Up Appt 1 year Follow Up Appt 1 year [facility] Work Phone: Start: 08-07-2005 Hepatitis B surface antibody level LDL Cholesterol [facility] Start: 1993 Screening for malign ant neoplasm of colon [facility] Start: 1966 Annual PCP Team Machine Carton Marker kavin Disease Visit Annual PCP Team Chronic Disease Visit [facility] Start: 1966 BP Controlled (<130/80) BP Controlle d (<130/80) [facility] Start: 1966 Depression Screening Depression Scre ening [facility] Start: 1966 Hepatitis C screening Hepatitis C [facility] Patient Education [facility] Work Phone: Patient referral [facility] Work Phone: End: 02-15-2025 Screening colonoscopy COLONOSCOPY SCREENING Endoscopy Routine History of colonic polyps Screen for colon cancer 1 Occurrences starting 02/16/2024 until 02/15/2025 [facility] Work Phone: Comment on above: 1 Occurrences starti ng 02/16/2024 until 02/15/2025 SURGICAL PATHOLOGY [facility] Work Phone: Comment on above: Release Upon Orderin g for 1 Occurrences starting 02/19/2024, 1 completed Immunizations Immunization Date Immunization Notes Care Provider Fa cility 07-13-2020 Covid (Moderna) Dr. Selena Saul Work Phone: [facility] 06-15-2020 Kia (Moderna) Dr. Selena Saul Work Phone: [facility] 01-30-2014 influenza, seasonal, injectable Maddie Jakob DAIRY NUTRITION SPECIALIST.ARROW POINT ATTACHER Work Phone: [facility] Work Phone: 02-09-2013 influenza virus vaccine, unspecified formulation Maddie Jakob DAIRY NUTRITION SPECIALIST.ARROW POINT ATTACHER Work Phone: [facility] 06-11-2012 tetanus toxoid, reduced diphtheria toxoid, and acellular pertussis vaccine, adsorbed Maddie Jakob DAIRY NUTRITION SPECIALIST.ARROW POINT ATTACHER Work Phone: [facility] 06-11-2012 zoster vaccine, live Kimberl ey Jakob DAIRY NUTRITION SPECIALIST.ARROW POINT ATTACHER Work Phone: [facility] 02-05-2011 influenza virus vaccine, unspecified formulation Maddie Jakob DAIRY NUTRITION SPECIALIST.ARROW POINT ATTACHER Work Phone: [facility] 01-26-2010 influenza virus vaccine, unspecified formulation Maddie Jakob DAIRY NUTRITION SPECIALIST.ARROW POINT ATTACHER Work Phone: [facility] Work Phone: 01-21-2009 influenza virus vaccine, unspecified formulation Maddie Jakob DAIRY NUTRITION SPECIALIST.ARROW POINT ATTACHER Work Phone: [facility] Work Phone: 02-21-2008 influenza virus vaccine, unspecified formulation Maddie Jakob DAIRY NUTRITION SPECIALIST.ARROW POINT ATTACHER Work Phone: [facility] Work Phone: 02-20-2007 influenza virus vaccine, unspecified formulation Maddie Jakob HALL Work Phone: [facility] 07-21-2003 tetanus and diphther ia toxoids, adsorbed, preservative free, for adult use (2 Lf of tetanus toxoid and 2 Lf of diphtheria toxoid) Maddie Jakob HALL Work Phone: [facility] Payers Date Payer Category Payer Self-pay [id number] 2017 Private Health Insurance AETNA S UPPLEMENT AETNA MEDICARE SUPPLEMENT [id number] 2017-Present [phone] [address] [address] [place] [address] Indemnity [id number] 2017 Private Health Insurance [facility] [id number] 2014 Unknown [id number] 2013 Medicare MEDICARE MEDICAR E A AND B [id number] 2013-Present [phone] [address] [address] [place] [address] Medicare [id number] 2013 Medicare [id number] Unknown [id number] Unknown [id number] [id number]. 2.462 Unknown [id number]. 2.462 Unknown [id number] 2.16.840.1.773550.3.579. 2.462 Unknown [id number] [id number]. 2.462 Unknown [id number] 2.16.840.1.716228.3.579. 2.462 Unknown [id number] 2.16.840.1.347704.3.579. 2.462 Unknown [id number] 2.16.840.1.936043.3.579. 2.462 Unknown [id number] 2.16.840.1.573771.3.579. 2.462 Unknown [id number] 2.16.840.1.055827.3.579. 2.462 Unknown [id number] [id number]. 2.462 Social History Date Type Detail Facility Start: 02-08-2022 End: 08-17-2023 Tobacco smoking status TXIS Unknown if ever smoked [facility] Start: 1950 Sex Assigned At Male W [facility] Start: 07-20-2017 End: 12-03-2024 Tobacco smoking status TXIS Never smoked tobacco [facility] Start: 07-20-2017 Tobacco use and exposure Smokeless tobacco non-user [facility] Start: 02-16-2024 End: 02-23-2024 Alcoholic beverage intake Current non-drinker of alcohol (finding) [facility] Start: 02-16-2024 End: 02-19-2024 History of Social function [facility] Start: 02-16-2024 End: 02-19-2024 Tobacco use panel [facility] National Score (1-10 0), lower number is lower risk [address] [facility] Start: 1950 Sex assigned at Not on file [facility] Start: 07-03-2024 Sex Male (finding) [facility] Medical Equipment Procedure Code Equipment Code Equipment Origin al Text Equipment Identifier Dates GLENOSPHERE FDA Start: 12-23-2024 HUMERAL STEM FDA Start: 12-23-2024 HUMERAL SYSTEM FDA Start: 09-08-2025 LATERALIZED BASEPLATE FDA Sta rt: 12-23-2024 SCREW FDA Start: 12-23-2024 SHORT POST FDA Start: 12-23-2024 Goals Date Patient Goal Desired Activity /State Functional Status Date Assessment Result Facility 12-24-2024 Functional status Ambulates [facility] Work Phone: Mental Status Date Assessment Result Facility 12-24-2024 Cognitive function Level Of Cons ciousness Awake;Alert;Appropriate;Follow s Commands [facility] Work Phone: 12-24-2024 Cognitive function Voice/Name [facility] Work Phone: 08-17-2023 Cognitive function Voice/Name [facility] Work Phone: Clinical Notes 08-17-2006 to 12-24-2024 Note Date & Type Note Facility 12-24-2024 Discharge summary Note Date/Time December 24, 2024 11:59am [facility] Medical Records Department [address] [place] [address] Discharge Summary 12/24/24 1018 MR#: [id number] Acct: [id number] Name: MARIA E GUTHRIE Rep #:[id number] : 1950 74 From: Oneyda WAGGONER PCP: Dr. Matt Saul MD Status :ADM BAR Location: [place] [address] Providers Date of Admission: 12/23/24 Date of [...] IMPRESSION: Right shoulder reverse arthroplasty. Reading Location: [place] [address] D/C Instructions Discharge Activity: May Shower Weight [...] Dr. Matt Saul MD; EDILSON Diaz~ Signed [facility] Work Phone: 1(826) 732-809709-09-2025 Discharge summary [facility] Medical Records Department [address] [place] [address] Discharge Summary 12/24/24 1018 MR#: [id number] Acct: [id number] Name: MARIA E GUTHRIE Rep #:[id number] : 1950 74 From: Oneyda WAGGONER PCP: Dr. Matt Saul MD Status :ADM BAR Location: [place] [address] Providers Date of Admission: 12/23/24 Date of [...] IMPRESSION: Right shoulder reverse arthroplasty. Reading Location: [place] [address] D/C Instructions Discharge Activity: May Shower Weight [...] Dr. Matt Saul MD; EDILSON Diaz~ Signed [facility]09-09-2025 Progress note Author Major Carrillo [facility] Note Date/Time December 24, 2024 9:42am [facility] Medical Records Department [address] [place] [address] Progress Note - Hospitalist 12/24/24913 MR#: [id number] Acct: [id number] Name: MARIA E GUTHRIE Rep #:[id number] : 1950 74 From: Major mathews MD PCP: Dr. Matt Saul MD Status :ADM BAR Location: [place] [address]57[address]1 Subjective Subjective Doing well, pain is controlled [...] IMPRESSION: Right shoulder reverse arthroplasty. Reading Location: [place] [address] Physical Exam Narrative General: Alert, Oriented x3, [...] with questions Charges/Coding Visit Charges Inpatient E&M: 44001 Subs Hosp L2 12/24/24 0942 <Electronically signed by Major Carrillo MD> Cosigner Signature (if applicable): CC: ~ Signed ADDENDUM by Dr. Major Carrillo MD on 12/24/24 at 0942 Visit Charges Office Visits / Consults: 69797 OV L3 Est 20min 12/24/24 0942<Electronically signed by Major Carrillo MD> Cosigner Signature (if applicable): cc: ~* Signed [facility] Work Phone: 1(114) 185-462209-09-2025 [facility] Medical Records Department [address] [place] [address] Discharge Summary 12/24/24 1018 MR#: [id number] Acct: [id number] Name: MARIA E GUTHRIE Rep #: [id number] : 1950 74 From: Oneyda WAGGONER PCP: Dr. Matt Saul MD Status:ADM BAR Location: [address] Providers Date of Admission: 12/23/24 Date [...] 20 H, Creatinine 1.01 (more content not included)...[facility]09-09-2025 Progress note [facility] Medical Records Department [address] [place] [address] Progress Note - Hospitalist 12/24/24913 MR#: [id number] Acct: [id number] Name: MARIA E GUTHRIE Rep #:[id number] : 1950 74 From: Major mathews MD PCP: Dr. Matt Saul MD Status :ADM BAR Location: [place] [address] Subjective Subjective Doing well, pain is controlled [...] IMPRESSION: Right shoulder reverse arthroplasty. Reading Location: [place] [address] Physical Exam Narrative General: Alert, Oriented x3, [...] with questions Charges/Coding Visit Charges Inpatient E&M: 18881 Subs Hosp L2 12/24/24 0942 Cosigner Signature (if applicable): CC: ~ Signed ADDENDUM by Dr. Major Carrillo MD on 12/24/24 at 0942 Visit Charges Office Visits / Consults: 70173 OV L3 Est 20min 12/24/24 0942 Cosigner Signature (if applicable): cc: ~* Signed [facility]09-08-2025 Consult note Author Hansel Sultana [facility] Note Date/Time December 23, 2024 8:16pm [facility] Medical Records Department [address] [place] [address] Consultation - Hospitalist 12/23/24 1608 MR#: [id number] Acct: [id number] Name: MARIA E GUTHRIE Rep #:[id number] : 1950 74 From: Hansel foreman DO PCP: Dr. Matt Saul MD Status :ADM BAR Location: [place] [address] Assessment & Plan Assessment/Plan (1) Right rotator cuff tear arthropathy: PLAN: Plan Patient is a 74-year-old male who presented to [facility] on 12/23/2024 for planned right shoulder [...] is a 74 M who presented to [facility] on 12/23/2024 for planned orthopedic procedure. [...] No other acute concerns at this time. [facility] Medical History Wears hearing aid Wears glasses Wears partial dentures History of steroid therapy Arthritis Dietary restriction Non-smoker History of echocardiogram History of stress test Cardiology follow-up encounter Diabetes Myocardial infarct Hypertension Osteoarthritis Gout Atherosclerosis of coronary artery of [place] heart without angina pectoris Hyperlipidemia Home Medications [...] Type Severity Reaction Status Date / Time Nyantoo-WYA-UyR Reductase AdvReac Mild myalgias Verified 12/23/24 10:26 Inhibitor (Uvgkzna-Bil-Nax Reductase Inhibitor) Family History Brother CAD (coronary [...] IMPRESSION: Right shoulder reverse arthroplasty. Reading Location: [place] [address] Charges/Coding Visit Charges Inpatient E&M: 93964 Subs Hosp L2 12/23/242015 <Electronically signed by Hansel Sultana DO> Cosigner Signature (if applicable): CC: Dr. Matt Saul MD; Dr. Major Yi DO~ Signed [facility] Work Phone: 1(206) 688-552609-08-2025 Consult note [facility] Medical Records Department [address] [place] [address] Consultation - Hospitalist 12/23/24 1608 MR#: [id number] Acct: [id number] Name: MARIA E GUTHRIE Rep #:[id number] : 1950 74 From: Hansel foreman DO PCP: Dr. Matt Saul MD Status :ADM BAR Location: [place] [address] Assessment & Plan Assessment/Plan (1) Right rotator cuff tear arthropathy: PLAN: Plan Patient is a 74-year-old male who presented to [facility] on 12/23/2024 for planned right shoulder [...] is a 74 M who presented to [facility] on 12/23/2024 for planned orthopedic procedure. [...] No other acute concerns at this time. [facility] Medical History Wears hearing aid Wears glasses Wears partial dentures History of steroid therapy Arthritis Dietary restriction Non-smoker History of echocardiogram History of stress test Cardiology follow-up encounter Diabetes Myocardial infarct Hypertension Osteoarthritis Gout Atherosclerosis of coronary artery of [place] heart without angina pectoris Hyperlipidemia Home Medications [...] Type Severity Reaction Status Date / Time Fdizefo-DQR-VzI Reductase AdvReac Mild myalgias Verified 12/23/24 10:26 Inhibitor (Bvgloel-Pme-Yku Reductase Inhibitor) Family History Brother CAD (coronary [...] IMPRESSION: Right shoulder reverse arthroplasty. Reading Location: [place] [address] Charges/Coding Visit Charges Inpatient E&M: 89314 Subs Hosp L2 12/23/242015 Cosigner Signature (if applicable): CC: Dr. Matt Saul MD; Dr. Major Yi, DO~ Signed [facility]09-08-2025 Consult note Author Osei Lubin [facility] Note Date/Time December 23, 2024 2:33pm [facility] Medical Records Department [address] [place] [address] Anesthesia Postop Eval II 12/23/24 1433 MR#: [id number] Acct: [id number] Name: MARIA E GUTHRIE Rep #:[id number] : 1950 74 From: Osei Choudhury PCP: Dr. Matt Saul MD Status :ADM BAR Y Race: C Location: [place] [address] Anesthesia Postop Eval I Sum Postop Eval Completion status Anesthesia document: Postop Eval 1 completed: Yes Anesthesia Postop Eval I Summary Anesthesia Postop Eval I Summary: Anesthesia Postop Eval I: Assessment Summary Airway patent Yes 12/23/24 13:32 INSTANT POTATO PROCESSOR.CSIR Spontaneous unlabored Yes 12/23/24 13:32 INSTANT POTATO PROCESSOR.CSIR respirations Mental status nausea No 12/23/24 13:32 INSTANT POTATO PROCESSOR.CSIR Vomiting No 12/23/24 13:32 INSTANT POTATO PROCESSOR.CSIR Anesthesia Postop Eval I: Fluid Summary Crystalloid volume administer 1,300 12/23/24 13:32 INSTANT POTATO PROCESSOR.CSIR (ml) Colloids volume administered ( ml) Blood Product volume administered (ml) Total IV fluid infused 1,300 12/23/24 13:32 INSTANT POTATO PROCESSOR.CSIR Anesthesia Postop Eval I: Summary Notes Anesthesia Complication No 12/23/24 13:32 INSTANT POTATO PROCESSOR.CSIR Anesthesia Complication Comment: Post-operative progress note Anesthesia: Postop Eval II Evaluation Mental status: Awake and Calm Pain Level: 1 nausea: No Vomiting: No Complications Anesthesia Complication: No 12/23/24 1433 <Electronically signed by Osei Lubin MD> Date _ Osei Lubin MD Cosigner Signature: Date CC: ~ Signed [facility] Work Phone: 1(329) 182-721509-08-2025 Consult note Author Priscilla Willard [facility] Note Date/Time December 23, 2024 1:33pm [facility] Medical Records Department [address] [place] [address] Anesthesia Postop Eval I 12/23/24 1332 MR#: [id number] Acct: [id number] Name: MARIA E GUTHRIE Rep #:[id number] : 1950 74 From: Priscilla Willard CRNA PCP: Dr. Matt Saul MD Status :REG SDC Y Race: C Location: [place] [address] Anesthesia: Postop Eval I Current Vital Signs [...] Priscilla cruz CRNA> Date _ Priscilla Willard INSTANT POTATO PROCESSOR Cosigner Signature: Date CC: ~ Signed [facility] Work Phone: 1(835) 673-113809-08-2025 Evaluation note* Diagnosis Onset Date Resolution Status Admit Date Right rotator cuff tear arthropathy acute December 23 1:06pm Status post reverse total arthroplasty of right shoulder acute S epte2024 1:06pm [facility] Work Phone: 1(398) 286-991309-08-2025 Evaluation note* Diagnosis Onset Date Resolution Status Admit Date Right rotator cuff tear arthropathy inactive Maureen 8th, 2 025 1:06pm Status post reverse total arthroplasty of right shoulder inactive December 23 1:06pm [facility] Work Phone: 1(568) 188-920609-08-2025 Consult note [facility] Medical Records Department [address] [place] [address] Anesthesia Postop Eval II 12/23/24 1433 MR#: [id number] Acct: [id number] Name: MARIA E GUTHRIE Rep #:[id number] : 1950 74 From: Osei Choudhury PCP: Dr. Matt Saul MD Status :ADM BAR Y Race: C Location: [address] Anesthesia Postop Eval I Sum Postop Eval Completion status Anesthesia document: Postop Eval 1 completed: Yes Anesthesia Postop Eval I Summary Anesthesia Postop Eval I Summary: Anesthesia Postop Eval I: Assessment Summary Airway patent Yes 12/23/24 13:32 INSTANT POTATO PROCESSOR.CSIR Spontaneous unlabored Yes 12/23/24 13:32 INSTANT POTATO PROCESSOR.CSIR respirations Mental status nausea No 12/23/24 13:32 INSTANT POTATO PROCESSOR.CSIR Vomiting No 12/23/24 13:32 INSTANT POTATO PROCESSOR.CSIR Anesthesia Postop Eval I: Fluid Summary Crystalloid volume administer 1,300 12/23/24 13:32 INSTANT POTATO PROCESSOR.CSIR (ml) Colloids volume administered ( ml) Blood Product volume administered (ml) Total IV fluid infused 1,300 12/23/24 13:32 INSTANT POTATO PROCESSOR.CSIR Anesthesia Postop Eval I: Summary Notes Anesthesia Complication No 12/23/24 13:32 INSTANT POTATO PROCESSOR.CSIR Anesthesia Complication Comment: Post-operative progress note Anesthesia: Postop Eval II Evaluation Mental status: Awake and Calm Pain Level: 1 nausea: No Vomiting: No Complications Anesthesia Complication: No 12/23/24 1433 MD> Date _ Osei Lubin MD Cosigner Signature: Date CC: ~ Signed [facility]09-08-2025 Radiology Diagnostic study note [facility] Imaging Services [address] [place] [address] Shoulder min 2 Views MR#: [id number] Acct: [id number] Name: MARIA E GUTHRIE Rep #: [id number] : 1950 M 74 From: Zhou Suárez MD PCP: Dr. Matt Saul MD Status: REG [facility] Study:Shoulder min 2 Views Date of Exam: 12/23/24 Exam# [id number] Ordering Dr: Major Yi DO PROCEDURE: SHOULDER [...] IMPRESSION: Right shoulder reverse arthroplasty. Reading Location: [place] [address] CC: Dr. Matt Saul MD; Dr. Major Yi DO ~ Plush Cutter: Signed [facility]09-08-2025 Consult note [facility] Medical Records Department [address] [place] [address] Anesthesia Postop Eval I 12/23/24 1332 MR#: [id number] Acct: [id number] Name: MARIA E GUTHRIE Rep #:[id number] : 1950 74 From: Priscilla Willard CRNA PCP: Dr. Matt Saul MD Status :[facility] Y Race: C Location: [place] [address] Anesthesia: Postop Eval I Current Vital Signs Temperature: 97 F Pulse Rate: 89 Blood Pressure: 145/87 Respiratory Rate: 18 Pulse Ox: 93 Assessment Airway patent: Yes Spontaneous unlabored respirations: Yes nausea: No Vomiting: No Anesthesia Complication: No Fluid Hydration Crystalloid volume administer (ml): 1,300 Total IV fluid infused: 1,300 Progress Note Anesthesia document: Postop Eval 1 completed: Yes 12/23/24 1333 a INSTANT POTATO PROCESSOR> Date _ Priscilla Willard INSTANT POTATO PROCESSOR Cosigner Signature: Date CC: ~ Signed [facility]09-08-2025 Procedure note [facility] Medical Records Department [address] [facility] [place] [address] Operative Report 12/23/24 1322 MR#: [id number] Acct: [id number] Name: MARIA E GUTHRIE Rep #:[id number] : 1950 74 From: Major lake DO PCP: Dr. Matt Saul MD Status :[facility] Location: [place] [address] Operative Report (Standard) Operative Information Date of Procedure: 12/23/24 Pre-Operative Diagnosis: Right shoulder rotator cuff tear arthropathy Post-Operative Diagnosis: Right shoulder rotator cuff tear arthropathy Surgery/Procedure Performed: Right reverse total shoulder arthroplasty metalsmith helper: Yes Air Traffic Control Specialist: Oneyda Solano Tasks completed by commercial loan assistant: Opening & closing, Implanting device, Hemostasis: [...] No Description of surgery: Patient arrived to [facility] morning of the procedure and was [...] in the beachchair position. A well-padded head of english was applied. The nonoperative extremity was placed [...] appropriate depth with good press-fit purchase. A Vermillion was used to confirm depth. Cortical screws [...] operative suite. He was transferred to the [facility] and subsequently to PACU in stable condition. Need for skilled spa assistant manager: Oneyda Solano PA-C was critical to the outcome of thecase. During the course of the procedure the physician spa assistant manager played a vitalrole. Her intimate knowledge of [...] Saul MD; Dr. Major Yi, DO~ Signed [facility]09-08-2025 Consult note Author Osei Lubin [facility] Note Date/Time December 23, 2024 10:57am [facility] Medical Records Department [address] [place] [address] Pre-Anesthesia Evaluation 12/23/24 1052 MR#: [id number] Acct: [id number] Name: MARIA E GUTHRIE Rep #:[id number] : 1950 74 From: Osei Choudhury PCP: Dr. Matt Saul MD Status :REG [facility] Y Race: C Location: [place] [address] ASA Classification* ASA Classification ASA Classification: 2 [...] SHOULDER ARTHROPLASTY Anesthesia History Anesthesia History - wireless store manager: Anesthesia History - wireless store manager Hx Hospitalization No 12/03/24 10:59 Any Problems [...] take am of surgery PONV PONV - wireless store manager: PONV - wireless store manager Female No 12/03/24 10:59 HX of Motion [...] 12/23/24 10:31 Respiratory Assessment Respiratory Assessment - wireless store manager: Respiratory Tract Infection Hx - wireless store manager Hx Respiratory Tract Infection No 12/03/24 10:59 STOP Sleep Apnea STOP Sleep Apnea - wireless store manager: STOP Sleep Apnea - wireless store manager Hx Hypertension Yes: CONTROLLED WITH MED 12/03/24 [...] Tobacco Use History 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 Tobacco Use Smoking Status Never smoker 12/03/24 10:59 Hx Tobacco Use No 12/03/24 10:59 Years Smoking Packs Smoked per Day Smoking Cessation Date was within the last 15 years Hx Smoking Cessation Date Hx Smoking Cessation Counseling Hematologic Medial History Hematologic Hx - wireless store manager: Hematologic Medical Hx - grading 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 feeder Hx of Blood Transfusion No 12/03/24 10:59 [...] confused, unrespo /Reproduction History /Reproductive History - wireless store manager: /Reproductive Hx- wireless store manager Hx Now No 12/03/24 10:59 Gestational Age [...] 10:29 IV 12/23/24 13:00 999 mls/hr .Q1H1M LAE Administration Cefazolin Sodium 2 gm/ Sodium 110 [...] Osteoarthritis Gout Atherosclerosis of coronary artery of [place] heart without angina pectoris Hyperlipidemia Home Medications [...] Type Severity Reaction Status Date / Time Djqzepa-LXE-ViE Reductase AdvReac Mild myalgias Verified 12/23/24 10:26 Inhibitor (Qeulzfc-Rdx-Lsw Reductase Inhibitor) Family History Brother CAD (coronary [...] MD Cosigner Signature: Date CC: ~ Signed [facility] Work Phone: 1(170) 318-907609-08-2025 Consult note [facility] Medical Records Department [address] [place] [address] Pre-Anesthesia Evaluation 12/23/24 1052 MR#: [id number] Acct: [id number] Name: MARIA E GUTHRIE Rep #:[id number] : 1950 74 From: Osei Choudhury PCP: Dr. Matt Saul MD Status :REG SDC Y Race: C Location: [place] [address] ASA Classification* ASA Classification ASA Classification: 2 [...] SHOULDER ARTHROPLASTY Anesthesia History Anesthesia History - wireless store manager: Anesthesia History - wireless store manager Hx Hospitalization No 12/03/24 10:59 Any Problems [...] take am of surgery PONV PONV - wireless store manager: PONV - wireless store manager Female No 12/03/24 10:59 HX of Motion [...] 12/23/24 10:31 Respiratory Assessment Respiratory Assessment - wireless store manager: Respiratory Tract Infection Hx - wireless store manager Hx Respiratory Tract Infection No 12/03/24 10:59 STOP Sleep Apnea STOP Sleep Apnea - wireless store manager: STOP Sleep Apnea - wireless store manager Hx Hypertension Yes: CONTROLLED WITH MED 12/03/24 [...] Tobacco Use History 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 Tobacco Use Smoking Status Never smoker 12/03/24 10:59 Hx Tobacco Use No 12/03/24 10:59 Years Smoking Packs Smoked per Day Smoking Cessation Date was within the last 15 years Hx Smoking Cessation Date Hx Smoking Cessation Counseling Hematologic Medial History Hematologic Hx - wireless store manager: Hematologic Medical Hx - grading machine feeder Hx of Blood Transfusion No 12/03/24 10:59 [...] confused, unrespo /Reproduction History /Reproductive History - wireless store manager: /Reproductive Hx- wireless store manager Hx Now No 12/03/24 10:59 Gestational Age [...] Osteoarthritis Gout Atherosclerosis of coronary artery of [place] heart without angina pectoris Hyperlipidemia Home Medications [...] Type Severity Reaction Status Date / Time Ynacxdp-III-JzG Reductase AdvReac Mild myalgias Verified 12/23/24 10:26 Inhibitor (Dxhpvyr-Ejj-Xrr Reductase Inhibitor) Family History Brother CAD (coronary [...] MD Cosigner Signature: Date CC: ~ Signed [facility]08-14-2025 Radiology Diagnostic study note [facility] Imaging Services [address] [place] [address] Extremity Upper without Contra MR#: [id number] Acct: [id number] Name: MARIA E GUTHRIE Rep #: [id number] : 1950 M 74 From: Sean Garcia MD PCP: Dr. Matt Saul MD Status: REG CLI Study:Extremity Upper without Contra Date of Exam: 11/26/24 Exam# [id number] Ordering Dr: Major Yi DO PROCEDURE: EXTREMITY [...] Saul MD; Dr. Major Yi DO ~ Plush Cutter: Signed [facility]03-04-2025 Radiology Diagnostic study note [facility] Imaging Services [address] [place] [id number] Ankle min 3 Views MR#: [id number] Acct: [id number] Name: MARIA E GUTHRIE Rep #: [id number] : 1950 M 74 From: Shannon Joshua MD PCP: Dr. Matt Saul MD Status: REG CLI Study:Ankle min 3 Views Date of Exam: Exam# [id number] Ordering Dr: Luna Saul MD EXAM: XR [...] evaluation with CT is recommended. [facility] CC: Dr. Matt Saul MD ~ Plush Cutter: Signed [facility]03-04-2025 Radiology [facility] [facility] [address] [place], [place] [address] Foot min 3 Views MR#: [id number] Acct: [id number] Name: MARIA E GUTHRIE Rep #: [id number] : 1950 M 74 From: Laurent Alva MD PCP: Dr. Matt Saul MD Status: REG CLI Study:Foot min 3 Views Date of Exam: 08/09 Exam# [id number] Ordering Dr: Luna Saul MD PROCEDURE: FOOT [...] suggestive of gout. Calcaneal spurs. Reading Location: [id number] CC: Dr. Matt Saul MD ~ Plush Cutter: Signed [facility]12-19-2024 Evaluation note* Diagnosis Onset Date Resolution Status Admit Date Essential hypertension chronic De cember 2023 2:13pm History of coronary artery stent placement August 17, 2006 chronic April 04, 2 024 2:13pm Hyperlipidemia chronic March 172023 2:13pm [facility] Work Phone: 1(380) 620-813711-11-2024 History of Present illness Narrative* Maddie Bernstein APRN.ARROW POINT ATTACHER - 02/26/2024 1:00 PM EST FOLLOW UP VISIT - ENDOSCOPY Maria E Guthrie 1950 [id number] REFERRING PHYSICIAN: Matt Saul (Rashida) [address] [facility] [address] Maria E Guthrie is a patient I [...] as needed for worsening/no improvement. Maddie Bernstein APRN.ARROW POINT ATTACHER [facility] NoteHNO ID: [id number] Author: MADDIE BERNSTEIN APRN.ARROW POINT ATTACHER Service: ? Author Type: Nurse Practitioner Type: Progress Notes Filed: 02/26/2024 13:03 Note Text: FOLLOW UP VISIT - ENDOSCOPY Maria E Guthrie 1950 [id number] REFERRING PHYSICIAN: Matt Saul (Rashida) [address] [place] [id number] Maria E Guthrie is a patient I [...] as needed for worsening/no improvement. Maddie Bernstein APRN.[facility]11-04-2024 Note* Discharge Instr - Nursing - Estelle Bird RN - 02/19/2024 12:17 PM EST The patient received a copy of Colonoscopy discharge instructions that contain information for how to contact the physician who performed the procedure and when to seek medical care. [facility]11-04-2024 Miscellaneous Notes* Discharge Instr - Nursing - Estelle Bird RN - 02/19/2024 12:17 PM EST The patient received a copy of Colonoscopy discharge instructions that contain information for how to contact the physician who performed the procedure and when to seek medical care. documented in [facility]2024 NoteHNO ID: [id number] Author: ESTELLE BIRD RN Service: ? Author Type: Registered Nurse Type: Nursing Progress Note Filed: 02/19/2024 12:15 Note Text: Abdomen soft non-distended. Will continue to monitor.[facility] 02-19-2024 Nurse Note* Estelle Bird RN - 02/19/2024 12:00 PM EST Abdomen soft non-distended. Will continue to monitor. [facility]11-04-[facility] Nurse Note* Estelle Bird RN - 02/19/2024 12:00 PM EST Abdomen soft non-distended. Will continue to monitor. documented in this [facility]24 History and physical note * Demetri [...] Last colonoscopy 06/[address] Park at [facility]. Sedation:Midazolam 5 mg IV, Fentanyl 100 [...] (FLONASE) 50 mcg/actuation nasal spray Use 1 Palisade in the nose once daily. cyanocobalamin (VITAMIN [...] entered by the nurse and reviewed by tx Nursing Notes: Francisca Spann RN 02/16/2024 2:03 [...] edited and updated as necessary. Maddie Bernstein APRN.ARROW POINT ATTACHER UPDATED HISTORY AND PHYSICAL EXAMINATION SERVICE DATE: 02/19/2024 SERVICE TIME: 10:53 AM SENSITIVE EXAMINATION CONSENT: The sensitive examination was discussed with the Patient or Patient's Authorized Clarity Specialists. Asapplicable, any other physician, advance practice provider, medical student, or other health professional student that will be observing or involved in the sensitive examination for educational or training purposes was discussed with the Patient or Authorized Clarity Specialists. The Patient or Authorized Clarity Specialists has agreed to proceed with the sensitive [...] DATE: February 19, 2024 TIME: 10:[address] [facility]11-04-2024 History and physical note* Demetri Lord [...] Last colonoscopy 06/[address] Park at [facility]. Sedation:Midazolam 5 mg IV, Fentanyl 100 [...] (FLONASE) 50 mcg/actuation nasal spray Use 1 Palisade in the nose once daily. cyanocobalamin (VITAMIN [...] entered by the nurse and reviewed by tx Nursing Notes: Francisca Spann RN 02/16/2024 2:03 [...] discussed with the Patient or Patient's Authorized Clarity Specialists. Asapplicable, any other physician, advance practice provider, medical student, or other health professional student that will be observing or involved in the sensitive examination for educational or training purposes was discussed with the Patient or Authorized Clarity Specialists. The Patient or Authorized Clarity Specialists has agreed to proceed with the sensitive [...] 2024 TIME: 10:53 AM documented in [facility] Telephone encounter Note * Telephone Encounter - Melanie Marcelino - 02/16/2024 2:34 PM EDT 02-19-2024 Colonoscopy concepción [facility] Joyytejolly prep, nurse went over instructions yudy has direct number to contact for any questions or concerns., Instructed patient to arrive at [address] [facility]11-01-2024 Miscellaneous Notes* Telephone Encounter - Melanie Marcelino - 02/16/2024 2:34 PM EDT 02-19-2024 Colonoscopy concepción ASC Joyytejolly prep, nurse went over instructions yudy has direct number to contact for any questions or concerns., Instructed patient to arrive at 1045 in [facility] Nurse Note* Francisca Spann, RN - [...] N/A Last Colonoscopy: 07/10/2020 Francisca Spann RN [facility]11-01-2024 History of Present illness Narrative* Maddie Bernstein APRN.ARROW POINT ATTACHER - 02/16/2024 2:00 PM EDT HISTORY AND PHYSICAL Maria E Guthrie : 1950 REFERRING PHYSICIAN: No referring provider defined for this encounter. CHIEF COMPLAINT: Patient presents with: Consult: colonoscopy HPI: Maria E is a 73 year old male referred for endoscopy. Maria E notes due for screening colonoscopy-hx of polyps (2020). aMria E denies abdominal pain.. Maria E denies [...] Last colonoscopy 06/[address] Park at [facility]. Sedation:Midazolam 5 mg IV, Fentanyl 100 [...] (FLONASE) 50 mcg/actuation nasal spray Use 1 Palisade in the nose once daily. cyanocobalamin (VITAMIN [...] entered by the nurse and reviewed by tx Nursing Notes: Francisca Spann RN 02/16/2024 2:03 [...] necessary. Maddie Bernstein APRN.BALJIT documented in this encounterMount [facility]-2024 NoteHNO ID: [id number] Author: MADDIE BERNSTEIN APRN.CNP Service: ? Author [...] Last colonoscopy 06/[address] Park at [facility]. Sedation:Midazolam 5 mg IV, Fentanyl 100 [...] (FLONASE) 50 mcg/actuation nasal spray Use 1 Palisade in the nose once daily. cyanocobalamin (VITAMIN [...] entered by the nurse and reviewed by tx Nursing Notes: Francisca Spann RN 02/16/2024 2:03 [...] denies ulcers, denies vomiting, (more content not included)...[facility]11-01-2024 Nurse Note* Francisca Spann RN - 02/16/2024 [...] 07/10/2020 Francisca Spann RN documented in [facility]-2024 Discharge summary Author Joe Joshua [facility] August 18, 2023 12:45am Note Date/Time August 17, 2023 9:52pm [facility] Medical Records Department [address] [place] [address] Emergency Department Summary 08/17/23 MR#: [id number] Acct: [id number] Name: MARIA E GUTHRIE Rep #:[id number] : 1950 73 From: Joe Sage PCP: Dr. Matt Saul MD Status :REG ER Location: ED HPI History of Present Illness Chief Complaint: Chest Pain Informant: patient Narrative Narrative: Intermittent chest pain initially started overnight twinges in his left chest. This evening it returned having intermittent symptoms. He had 1 stent placed [id number]. Diabetes hypertension hyperlipidemia. No cardiac dysrhythmia history. On baby aspirin. No cough. He had traveled yesterday 8-hour drive and return. Noticed leg swelling no leg cramping no dyspnea. Prior Similar Symptoms: No CVD Risk Factors: Positive for Hypertension, Diabetes and Hypercholesterolemia PE Risk Factors: Positive for Recent [facility] Medical History (Updated 08/18/23 @ 00:[address] Joe Joshua DO) Atherosclerosis of coronary artery of [place] heart without angina pectoris Chest pain Coronary [...] DAILY 02/08/22 [History Last Taken Unknown] omega 5-jrz-fcq-fish oil 300 mg-1,000 mg capsule (Fish Oil) 2 cap PO BID 02/08/22 [History Last Taken Unknown] allopurinol 300 mg tablet 300 mg PO DAILY 02/08/23 [History Last Taken Unknown] hydrochlorothiazide 25 mg tablet 25 mg PO DAILY 02/08/23 [History Last Taken Unknown] Allergy/AdvReac Type Severity Reaction Status Date / Time Cvmynyu-HEB-QgI Reductase AdvReac Mild myalgias Verified 08/17/23 21:04 Inhibitor [Dkuftbp-Hyx-Axg Reductase Inhibitor] Family History Brother CAD (coronary [...] it in the room however on the athletic monitor did not know any rhythm changes. Cardiac [...] clinician: N/A This note was generated with [employer] dictation software. It may contain incorrectwords, spelling, [...] 38.9 L Lymph % (Auto) 49.8 H [place] % (Auto) 10.1 H Eos % (Auto) [...] mg tablet 100 mg PO DAILY omega 9-lxf-jdp-fish oil [Fish Oil] 300-1,000 mg capsule 2 [...] muscle); rotate sites Pt gets from the [place] Primary Care Provider: Matt Saul Referrals: Matt [...] your Primary Care Provider. Call [facility] ([phone]) or report to the closest Emergency Room. Call 911 if necessary. 08/18/23 0045 <Electronically signed by Joe Sage> Cosigner Signature (if applicable): CC: Dr. Matt Saul MD ~ Signed [facility] Work Phone: [phone]) 303-918605-03-2007 Evaluation note* Diagnosis Onset Date Resolution Status Essential hypertension chron ic History of coronary artery stent placement August 17 chronic Hyperlipidemia chronic [facility] Work Phone: Evaluation note* Diagnosis Onset Date Resolution Status Influenza due to influenza virus, type A, human acute [facility] Work Phone: Evaluation note* Diagnosis History of colonic polyps- Primary Personal history of colonic polyps Screen for colon cancer Special screening for malignant neoplasms, colon documented in this encounter [facility] Diagnosis History of colonic polyps Personal history of colonic polyps Screen for colon cancer Special screening for malignant neoplasms, colon documented in this encounter [facility]* Diagnosis History of colonic polyps- Primary Personal history of colonic polyps documented in this encounter [facility] noteNo assessment information availableWooTriHealth Good Samaritan [facility] Work Phone: Hospital Discharge instructions Additional Instructions Cardiac workup was negative. Potassium 3.1 orally replaced. Follow-up with your doctor. If symptoms recur and worsens, return to the ED for reevaluation.[facility] Work Phone: Hospital Discharge instructionsAdditional Instructions Date of [facility]: [facility] Phone: Reason for referral (narrative)* Outpatient Procedure (Routine) - Authorized Specialty Diagnoses / Procedures Referred By Shauna ross Referred To Contact [facility] Diagnoses History of colonic polyps Screen for colon cancer Procedures COLONOSCOPY SCREENING COLONOSCOPY FLX DX W/COLLJ SPEC WHEN Maddie Lozada APRN.CNP [address] [place] [address] [facility] Disease [address] [address] Referral ID Status Reason Start Date Expiration Date Visits Requested Visits Authorized [id number] Authorized Auto-Generat ed Referral 02/16/2024 02/15/2025 1 1 [facility] for referral (narrative)* Outpatient Procedure (Routine) - Closed Specialty Diagnoses / Procedures Referred By Shauna ross Referred To Contact [facility] DISEASE FULKS RUN Diagnoses History of colonic polyps Screen for colon cancer Procedures COLONOSCOPY SCREENING COLONOSCOPY FLX DX W/COLLJ SPEC WHEN Maddie Lozada APRN.CNP [address] [place] [address] [facility] Disease [place] [id number] Referral ID Status Reason Start Date Expiration Date V isits Requested Visits Authorized [id number] Closed Auto-Generate d Referral 02/16/2024 02/15/2025 1 1 [facility] for referral (narrative)No reason for referral information availableWOhio State [facility] Work Phone: Reason for visit Narrative* Outpatient Procedure (Routine) - Closed Specialty Diagnoses / Procedures Referred By Shauna ross Referred To Contact [facility] Diagnoses History of colonic polyps Screen for colon cancer Procedures COLONOSCOPY SCREENING COLONOSCOPY FLX DX W/COLLJ SPEC WHEN Maddie Lozada, JENNIFER.ARROW POINT ATTACHER [address] [place] [address] [facility] [place] [address] Referral ID Status Reason Start Date Expiration Date V isits Requested Visits Authorized [id number] Closed Auto-Generate d Referral 02/16/2024 02/15/[address] [facility] Chief Complaint and Reason for Visit [...] Yes December 29, 2014 1:26pm Power of Wire Inspector Yes December 1:26pm Advance Directive Response Recorded Date/ Time Name of Medical Power of Wire Inspector darby feliciano n August 17, 2023 9:53pm Living Will Yes August 17, 2023 9: 53pm Power of Wire Inspector Yes August 17, 2023 9:53pm Advance Directive Response Recorded Date/ Time Living Will Yes December 29, 2014 2:26pm Power of Wire Inspector Yes December 2:26pm Advance Directive Response Recorded Date/ Time Do you have a Healthcare Power of Wire Inspector? Yes December 23, 2024 2:44pm Summary Purpose [...] Primary Care Provider Activ e Bill Murdock MOBILE LAB TECHNICIAN, MOBILE LAB TECHNICIAN-C Attending Provider Active Team Status: Active Member Role Status Dates Dr. Armond Saul MD Primary Care Provider Activ e Self Referred Attending Provider Active Team Status: Inactive Member Role Status Dates Dr. Armond Saul MD Primary Care Provider Activ e Bill Murdock MOBILE LAB TECHNICIAN, MOBILE LAB TECHNICIAN-C Attending Provider Active Team Status: Inactive Member Role Status Dates Dr. Armond Saul MD Primary Care Provider, Refe rring Provider Active Xiomara Renee MOBILE LAB TECHNICIAN, MOBILE LAB TECHNICIAN-C Attending Provider Active Team Status: Active Member [...] Dr. Joe Joshua DO Emergency Provider Active Riprap Placer Relationship Specialty Start Date End Date Matt Saul MD [address] [facility] [place] [place], [place] [address] PCP - General Family Medicine 06/30/20 Riprap Placer Relationship Specialty Start Date End Date Matt Saul MD [address] [facility] [address] [place], [place] [address] PCP - General Family Medicine 06/30/20 Riprap Placer Relationship Specialty Start Date End Date Matt Saul MD [address] [facility] [place], [place] [address] PCP - General Family Medicine 06/30/20 Riprap Placer Relationship Specialty Start Date End Date Matt Saul MD [address] [facility] [place], [place] [id number] PCP - General Family Medicine 06/30/20 Team Status: Inactive Member Role Status Dates Dr. Matt Sual MD Primary Care Provider Acti ve Start: [...] Acti ve Start: December 23, 2024 Dr. aMjor Yi DO Admit Provider Active Start: December [...] physician Active Start: November 27, 2024 Dr. Majro Yi DO Referring Provider Active Start: November [...] 23, 2024 End: December 24, 2024 Dr. Maojr Carrillo MD Nurse Practitioner Active Start: December [...] or prosecute any alcohol or drug abuse patient.[facility] Hospital[facility] the event this information is protected by the Federal Confidentiality of Alcohol and Drug Abuse Patient Records regulations: The Federal rules restrict any use of the information to criminally investigate or prosecute any alcohol or drug abuse patient.[facility] HospitalIn the event this information is protected by the Federal Confidentiality of Alcohol and Drug Abuse Patient Records regulations: The Federal rules restrict any use of the information to criminally investigate or prosecute any alcohol or drug abuse patient.[facility] HospitalIn the event this information is protected by the Federal Confidentiality of Alcohol and Drug Abuse Patient Records regulations: The Federal rules restrict any use of the information to criminally investigate or prosecute any alcohol or drug abuse patient.[facility] Reason for Visit (unrecogniz ed section and content) Reason Comments Consult colonoscopy Reason Comments Follow Up Review colonoscopy r esults. Reason Comments 02-19-2024 Colonscoopy (unrecognized sect ion and content) No Status Records FoundNo Status Records Found INFORMATION SOURCE (unrecogn ized section and content) DATE CREATED AUTHOR 03/19/2024 [facility] DATE CREATED AUTHOR AUTHOR'S ORGANIZ ATION 02/28/2025 [facility] FOR RECORDS PERTAINING TO PATIENTS WHO [...] BE BASED ON THE PRIMARY CLINICAL RECORDS. [employer] provides no warranty or guarantee of the accuracy or completeness of information in this document.
[2025-04-10] MEDS: Ceftriaxone 2 GM in 0.9% Normal Saline (50mL MB+) 50 ML IV (12:34)
== END 2025-04-10 13:16 | disposition home or self-care (01) ==
LOC: MEDOUTP 12:17 → PCU 12:18
PROVIDERS: PCP Family Medicine; Referring Provider Internal Medicine Infectious Disease; Visit Provider Internal Medicine Infectious Disease
DX: T84.59XA Infection and inflammatory reaction due to other internal joint prosthesis, initial encounter (principal)
CPT/HCPCS: J0696

== ENCOUNTER 2025-04-11 11:16 | Outpatient (CLI) | payer MEDICARE, OTHER, SELFPAY ==
--- OUTSIDE RECORDS SUMMARY | 2025-04-11 11:29 | XMS RPT_ITS | CCD ---
Author Organization [facility] Care Team Providers Care Corrections Specialist Name Role Phone FERMIN Blunt, Bailey Keller Unavailable Georgette Oliva Unavailable Unavailable Georgette Tabor Unavailable Unavailable Dr. Armond Saul Primary Care Provider [phone] Dr. Armond Saul Referring Provider Dr. Nathan Purcell Attending Provider [phone] Doyle Sandoval Attending Provider [phone] Collette DEHYDROGENATION CONVERTER OPERATOR, DEHYDROGENATION CONVERTER OPERATOR-Luna Grant Attending Provider Dr. Armond Saul Primary Care Provider [phone] Dr. Armond Saul Referring Provider Víctor DEHYDROGENATION CONVERTER OPERATOR, DEHYDROGENATION CONVERTER OPERATOR-Luna Solano Attending Provider Dr. Nathan Purcell Attending Provider [phone] Nathan Purcell Referring Provider [phone] Nathan Purcell Other Provider Collette DEHYDROGENATION CONVERTER OPERATOR, KHAI-Luna Grant Attending Provider Dr. Matt Saul [...] Kg LAZO, Dr. Farley Referring Provider [phone] Jazzy LAZO, Dr. Evans Attending Provider [phone] Kg LAZO, Dr. Farley Attending Provider [phone] Kg LAZO, Dr. Farley Primary Care Provider [...] Spring Attending Physician Oneyda Spring Referring Provider [phone] Yang Romero Attending Unavailable [place], Matt Referring Unavailable [facility] Unavailable Spittle, Major Attending Unavailable Spittle, Major Referring Unavailable Spittle, Major Admitting Unavailable [facility] Unavailable Kotsonis, Major F Consulting Unavailable Spittle, Major Referring Unavailable Spittle, Major Attending [facility]available [facility] Spittle, Major Referring Unavailable Spittle, Major Attending Unavailable [facility] Care Unavailable Oneyda Solano Attending Unavailable Oneyda Solano Referring Unavailable [facility] Unavailable Matt Saul Attending [facility]available [facility] Referring Unavailable [facility], Matt Attending Unavailable [facility] Unavailable Spittle, Major Referring Unavailable Seven Grey Attending Unavailable [facility] Unavailable Spittle, Major Referring Unavailable Hansel Sultana Attending Unavailable Spittle, Major Admitting Unavailable Hansel Sultana Consulting Unavailable [facility] Care Unavailable Spittle, Major Consulting Unavailable Kotsonis, Major F Consulting Unavailable Kotsonis, Major F Attending Unavailable Nathan Purcell Attending Unavailable [facility] Care Unavailable [facility] Referring Unavailable Allergies Allergy Classification Reported Allergen(s) Allergy Type Date of Onset Reaction(s) Facility (3 sources) atorvastatin drug allergy 5 myalgia [facility] Work Phone: (3 sources) simvastatin drug allergy 3 myalgias [facility] Work Phone: (3 sources) CRESTOR, PRAVACHOL drug allergy 3 myalgias [facility] Work Phone: (7 sources) Zhgidnd-Oqs-Lpe Reductase Inhibitor Propensity to adverse reactions 2 myalgias [facility] Comment on above: Lipitor, Crestor, Zo cor (5 sources) Simvastatin; Translations: [SIMVASTATIN] Drug Allergy 7 Intolerance [facility] Work Phone: (1 source) OTHER; Translations: [OTHER] Propensity to adverse reactions (disorder) 7 [facility] Repository (1 source) Wdruebc-Ndt-Hjn Reductase Inhibitor Drug allergy (disorder) 5 [facility] Repository Medications Current Medications Medication Drug [...] TABS One tablet by mouth daily ASPIRIN [id number] Shruthi Fajardo RN Start: 06-11-2012 take 1 tablet by keyona th once daily at mealtime Aspirin 81 mg Tab Indications: Coronary atherosclerosis of unspecified type of vessel, quileute or graft Take 1 tablet by mouth once daily. Take with food. 06/11/2012 Active cholecalciferol 0.025 mg ora l tablet (14 sources) Vitamin D Start: 01-21-2020 take 1 tablet by keyona th once daily Start: 01-21-2020 take 2000 [IU] by mo [facility] once daily Cholecalciferol (Vitamin D3) Active [...] Active docusate sodium 50 mg / sennosides, skilled nursing 8.6 mg oral tablet (2 sources) Start: 12-24-2024 fluticasone propionate 0.05 mg/actuat metered dose nasal spray (4 sources) Corticosteroid Start: 05-04-2023 fluticasone (FLONASE) 50 mcg/actuation nasal spray Use 1 [place] in the nose once daily. 05/04/2023 Active [...] tablet by mouth twice daily METOPROLOL TARTRATE [id number] Mari Reyes RN oxyCODONE hydrochloride 5 mg oral tablet (2 sources) Opioid Agonist Start: 12-24-2024 take 5-10 mg by mouth every four to six hours as needed for pain polyethylene glycol 3350 798983 mg / potassium chloride 2970 mg / sodium bicarbonate 6740 mg / sodium chloride 5860 mg / sodium sulfate 80149 mg powder for oral solution (1 source) [...] One tablet by mouth daily CLOPIDOGREL BISULFATE [id number] Demetri Patrick MD [place] 8-Hyc-Pdp-Fish Oil (7 sources) Start: 02-08-2022 End: 04-04-2024 [place] 2-Wsn-Jdv-Fish Oil (Fish Oil) 300-1,000 mg capsule Discontinued 2 NMA PO TWICE A DAY February 08, 2022 12:00am April 04, 2024 3:20pm Start: 02-08-2022 take 300-1000 mg by mouth twice daily [place] 8-Xwl-Cuq-Fish Oil (Fish Oil) 300-1,000 mg capsule Active 2 CAP PO TWICE A DAY February 08, 2022 12:00am Start: 02-08-2022 take 300-1000 mg by mouth once daily [place] 0-Aui-Urt-Fish Oil (Fish Oil) 300-1,000 mg capsule Active [...] by mouth daily OME[place]-3 FATTY ACIDS CAPS [id number] Demetri Patrick MD Start: 06-10-2013 End: 03-31-2015 take 1 tablet by mouth once daily FISH OIL CAPS One tablet by mouth daily OMEGA-3 FATTY ACIDS CAPS [id number] Demetri Patrick MD Start: 03-21-2013 End: 03-25-2013 take 1 capsule by mouth once daily FISH OIL CAPS One capsule by mouth daily [place]GA-3 FATTY ACIDS CAPS [id number] Demetri Patrick MD Start: 03-21-2013 take 1 capsule by mo [facility] once daily FISH OIL CAPS One capsule by mouth daily OMEGA-3 FATTY ACIDS CAPS [id number] Shruthi Fajardo RN FLUoxetine 10 mg oral capsule (6 sources) Serotonin Reuptake Inhibitor Start: 03-21-2013 End: 03-25-2013 take 1 tablet by mouth once daily PROZAC 10 MG CAPS One tablet by mouth daily FLUOXETINE HCL [id number] Demetri Patrick MD Start: 03-21-2013 End: 03-25-2013 take 1 tablet by mouth once daily PROZAC 10 MG CAPS One tablet by mouth daily FLUOXETINE HCL [id number] Demetri Patrick MD gemfibrozil 600 mg oral [...] BY PHYSICIAN FOR PROCEDURAL SEDATION ONLY, Intraprocedure [place]-3 Fatty Acids (3 sources) Start: 06-09-2013 End: 05-11-2017 take 300 mg by mouth once daily [place]-3 Fatty Acids Discontinued 300 MG PO DAILY June 09, 2013 1:00am May 11, 2017 5:09pm Start: 06-09-2013 End: 05-11-2017 take 300 mg by mouth once daily [place]-3 Fatty Acids Discontinued 300 MG PO DAILY June 09, 2013 12:00am May 11, 2017 4:09pm [place]-3 Fatty Acids 300 MG capsule (4 sources) Start: 06-09-2013 End: 05-11-2017 take 1 capsule by mouth once daily [place]-3 Fatty Acids 300 MG capsule Discontinued 300 [...] myocardial infarction; Translations: [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 [place] [address] / REHABILITATION SERVICES INITIAL EVALUATION MR#: [id number] Acct: [id number] Name: MARIA E GUTHRIE Rep #: [id number] : 1950 74 From: Cesar Holloway DPT [...] to be FAXED BACK to us at [phone] for Medicare purposes. For Medicare only, by signing this I certify the plan of care. Please let me know if there are questions or concerns regarding this plan of care. Physician Signature: Date:__ 01/07/25 1207 CC: Dr. Matt Saul MD; EDILSON Diaz CLS Signed Normal [facility] Microalb:Creat Ratio,Random URon 01-06-2025 Creatinine [Mass/Vol] 68.50 mg/dL Normal 39.00-259.00 [facility] Comment on above: Order Comment: Order Date: 01/06/25 Order Info: [id number] - MIALB Performed By: #### L 502.0250 #### [facility] [address] [place], [place], [id number] MALB:CREAT 322.6 mg/g CRE High <30 mg/g CRE [facility] Comment on above: Order Comment: Order Date: 01/06/25 Order Info: [id number] - MIALB Performed By: #### L 502.0250 #### [facility] [address] [place], [address] MICROALBUMIN,UR 221.0 mg/L Normal <20 mg/L [facility] Comment on above: Order Comment: Order Date: 01/06/25 Order Info: [id number] - MIALB Performed By: #### L 502.0250 #### [facility] [address] [place], [address] Random urine creatinine collin urement (mass/volume)Ordered By: Matt Saul on 01-06-2025 Creatinine Unsp time (U) [Mass/Vol] 68.50 mg/dL 39.00-259.00 [facility] Urine albumin measurement wi detection limit of 20 mg/L or less (mass/volume)Ordered By: Matt Saul on 01-06-2025 Albumin DL <= 20 mg/L (U) [Mass/Vol] 221.0 mg/L <20 mg/L [facility] Anion gap in Serum or Plasma Ordered By: Major Yi on 12-24-2024 Anion gap [Moles/Vol] 15 mmol/L - [facility] BUN/creatinine ratioOrdered By: Major Yi on 12-24-2024 Urea nitrogen/Creatinine [Mass ratio] 19.8 mg/mg - [facility] Basic Metabolic Profile (BMP )on 12-24-2024 BUN/CRE 19.8 RATIO Normal 02-03 [facility] Comment on above: Performed By: #### L 500.2500, L100.0500 ####[facility] [address] [place], [address] Calcium [Mass/Vol] 9.2 mg/dL Normal 7.6-11.0 [facility] Comment on above: Performed By: #### L 500.2500, L100.0500 ####[facility] [address] [place], [address] Chloride [Moles/Vol] 100 mmol/L Normal 98-108 [facility] Comment on above: Performed By: #### L 500.2500, L100.0500 ####[facility] [address] [place], [address] CO2 [Moles/Vol] 19.6 mmol/L Low 21.0-32.0 [facility] Comment on above: Performed By: #### L 500.2500, L100.0500 ####[facility] [address] [place], [address] Creatinine [Mass/Vol] 1.01 mg/dL Normal 0.70-1.20 [facility] Comment on above: Performed By: #### L 500.2500, L100.0500 ####[facility] [address] [place], [address] ECRCL 68.29 ml/min Normal 50-250 [facility] Comment on above: Performed By: #### L 500.2500, L100.0500 ####[facility] [address], [address] GAP 15 Normal 5-15 [facility] Comment on above: Performed By: #### L 500.2500, L100.0500 ####[facility] [address] [place], [address] GFR/1.73 sq M.predicted among non-blacks MDRD (S/P/Bld) [Vol rate/Area] 77 mL/min/{1.73_m2} Normal >60 [facility] Comment on above: Result Comment: mL/m in/1.73m2 CKD-EPI Creatinine Equation (2020) Performed By: #### L 500.2500, L100.0500 ####[facility] [address] [place], [address] Glucose [Mass/Vol] 175 mg/dL High 70-99 [facility] Comment on above: Performed By: #### L 500.2500, L100.0500 ####[facility] [address] [place], [address] Potassium [Moles/Vol] 4.4 mmol/L Normal 3.3-5.1 [place] [facility] Comment on above: Performed By: #### L 500.2500, L100.0500 ####[facility] [address] [place], [address] Sodium [Moles/Vol] 135 mmol/L Normal 133-145 [facility] Comment on above: Performed By: #### L 500.2500, L100.0500 ####[facility] [address] [place], [address] Urea nitrogen [Mass/Vol] 20 mg/dL High 4-19 [facility] Comment on above: Performed By: #### L 500.2500, L100.0500 ####[facility] [address] [place], [address] Bedside Glucoseon 12-24-2024 FINGERSTICK GLU 306 mg/dL High 74-106 [facility] Comment on above: Result Comment: SUSAN GEMENT OF PATIENT CARE PER NURSING PROTOCOL Performed By: #### L 501.080 #### [facility] [address] [place], [address] FINGERSTICK GLU 188 mg/dL High 74-106 [facility] Comment on above: Result Comment: SUSAN GEMENT OF PATIENT CARE PER NURSING PROTOCOL Performed By: #### L 501.080 #### [facility] [address] [place], [address] CBC-Complete Blood Cnt No Di ffon 12-24-2024 Erythrocyte distribution width (RBC) [Ratio] 13.4 % Normal 11.6-14.6 [facility] Comment on above: Performed By: #### L 500.2500, L100.0500 #### [facility] [address] [place], [address] Hematocrit (Bld) [Volume fraction] 39.7 % Low 40-54 [facility] Comment on above: Performed By: #### L 500.2500, L100.0500 #### [facility] [address] [place], [address] Hemoglobin (Bld) [Mass/Vol] 13.5 g/dL Normal 13.0-16.5 [facility] Comment on above: Performed By: #### L 500.2500, L100.0500 #### [facility] [address] [place], [address] MCH (RBC) [Entitic mass] 29.6 pg Normal 27.0-32.0 [facility] Comment on above: Performed By: #### L 500.2500, L100.0500 #### [facility] [address] [place], [address] MCHC (RBC) [Mass/Vol] 34.0 g/dL Normal 32-36 [place] [facility] Comment on above: Performed By: #### L 500.2500, L100.0500 #### [facility] [address] [place], [address] MCV (RBC) [Entitic vol] 87.1 fL Normal 80-94 [facility] Comment on above: Performed By: #### L 500.2500, L100.0500 #### [facility] [address] [place], [address] Platelet mean volume (Bld) [Entitic vol] 11.7 fL Normal 6.2-12.0 [facility] Comment on above: Performed By: #### L 500.2500, L100.0500 #### [facility] [address] [place], [address] Platelets (Bld) [#/Vol] 174 10*3/uL Normal 150-450 [facility] Comment on above: Performed By: #### L 500.2500, L100.0500 #### [facility] [address] [place], [address] RBC (Bld) [#/Vol] 4.56 10*6/uL Low 4.6-6.2 [facility] Comment on above: Performed By: #### L 500.2500, L100.0500 #### [facility] [address] [place], [address] RDW SD 41.7 fl Normal 35.1-43.9 [facility] Comment on above: Performed By: #### L 500.2500, L100.0500 #### [facility] [address] [place], [address] WBC (Bld) [#/Vol] 10.6 10*3/uL Normal 4.4-11.0 [facility] Comment on above: Performed By: #### L 500.2500, L100.0500 #### [facility] [address] [place], [address] Carbon dioxide, total [Moles /volume] in Central venous bloodOrdered By: Major Yi on 12-24-2024 CO2 [Moles/Vol] 19.6 mmol/L Low 21.0-32.0 [facility] Chloride assayOrdered By: Yumiko Yi on 12-24-2024 Chloride [Moles/Vol] 100 mmol/L 98-108 [facility] Erythrocyte distribution wid th ratioOrdered By: Major Yi on 12-24-2024 Erythrocyte distribution width (RBC) [Ratio] 13.4 % 11.6-14.6 [facility] Erythrocyte distribution wid th standard deviationOrdered By: Major Yi on 12-24-2024 Erythrocyte distribution width (RBC) [Ratio] 41.7 fl 35.1-43.9 [facility] Glomerular filtration rate ( GFR) estimation/1.73 sq m using serum, plasma, or whole bOrdered By: Major Yi on 12-24-2024 GFR/1.73 sq M.predicted among non-blacks MDRD (S/P/Bld) [Vol rate/Area] 77 mL/min/{1.73_m2} >60 [facility] Comment on above: mL/min/1.73m2 CKD-EP I Creatinine Equation (2020) [facility] de[facility]dered By: Major Yi on 12-24-2024 Glucose [Mass/Vol] 306 mg/dL High 74-106 [facility] Comment on above: MANAGEMENT OF PATIEN T CARE PER NURSING PROTOCOL Hematocrit Auto (Bld) [Volum e fraction]Ordered By: Major Yi on 12-24-2024 Hematocrit (Bld) [Volume fraction] 39.7 % Low 40-54 [facility] Hemoglobin measurementOrdere d By: Major Yi on 12-24-2024 Hemoglobin (Bld) [Mass/Vol] 13.5 g/dL 13.0-16.5 [facility] MCV (mean corpuscular volume ) determinationOrdered By: Major Yi on 12-24-2024 MCV (RBC) [Entitic vol] 87.1 fL 80-94 [facility] Mean corpuscular hemoglobin (MCH) determinationOrdered By: Major Yi on 12-24-2024 MCH (RBC) [Entitic mass] 29.6 pg 27.0-32.0 [facility] Mean corpuscular hemoglobin concentration (MCHC) determinationOrdered By: Major Yi on 12-24-2024 MCHC (RBC) [Mass/Vol] 34.0 g/dL 32-36 [facility] Mean platelet volume determi nationOrdered By: Major Yi on 12-24-2024 Platelet mean volume (Bld) [Entitic vol] 11.7 fL 6.2-12.0 [facility] Platelet countOrdered By: Yumiko Yi on 12-24-2024 Platelets (Bld) [#/Vol] 174 10*3/uL 150-450 [facility] Potassium measurement (mass/ volume)Ordered By: Major Yi on 12-24-2024 Potassium (Unsp spec) [Mass/Vol] 4.4 mmol/L 3.3-5.1 [facility] RBC Auto (Bld) [#/Vol]Ordere d By: Major Yi on 12-24-2024 RBC (Bld) [#/Vol] 4.56 10*6/uL Low 4.6-6.2 [facility] Serum creatinine measurement (mass/volume)Ordered By: Major Yi on 12-24-2024 Creatinine [Mass/Vol] 1.01 mg/dL 0.70-1.20 [facility] Serum glucose measurement (m ass/volume)Ordered By: Major Yi on 12-24-2024 Glucose [Mass/Vol] 175 mg/dL High 70-99 [facility] Serum or plasma calcium collin urement (mass/volume)Ordered By: Major Yi on 12-24-2024 Calcium [Mass/Vol] 9.2 mg/dL 7.6-11.0 [facility] Serum or plasma urea nitroge n measurement (mass/volume)Ordered By: Major Yi on 12-24-2024 Urea nitrogen [Mass/Vol] 20 mg/dL High 4-19 [facility] Sodium levelOrdered By: Moshe Yi on 12-24-2024 Sodium [Moles/Vol] 135 mmol/L 133-145 [facility] White blood cell (WBC) count Ordered By: Major Yi on 12-24-2024 WBC (Bld) [#/Vol] 10.6 10*3/uL 4.4-11.0 [facility] Bedside Glucoseon 12-23-2024 FINGERSTICK GLU 272 mg/dL High 74-106 [facility] Comment on above: Result Comment: SUSAN GEMENT OF PATIENT CARE PER NURSING PROTOCOL Performed By: #### L 501.080 ####[facility] [address], [address] FINGERSTICK GLU 166 mg/dL High 74-106 [facility] Comment on above: Result Comment: SUSAN GEMENT OF PATIENT CARE PER NURSING PROTOCOL Performed By: #### L 501.080 ####[facility] [address] [place], [address] FINGERSTICK GLU 195 mg/dL High [facility]106 [facility] Comment on above: Result Comment: SUSAN GEMENT OF PATIENT CARE PER NURSING PROTOCOL Performed By: #### L 501.080 #### [facility] [address] [place], [address] Consultation - [facility]iston 12-23-2024 Consultation - Hospitalist [facility] Medical Records Department [address] [place] [address] Consultation - Hospitalist 12/23/24 1608 MR#: [id number] Acct: [id number] Name: MARIA E GUTHRIE Rep #: [id number] : 1950 74 From: Hansel Sultana DO PCP: Dr. Matt Saul MD Status:ADM BAR Location: [place] [address] Assessment Plan Assessment/Plan (1) Right rotator cuff tear arthropathy: PLAN: Plan Patient is a 74-year-old male who presented to [facility] on 12/23/2024 for planned right shoulder [...] is a 74 M who presented to [facility] on 12/23/2024 for planned orthopedic procedure. [...] No other acute concerns at this time. [facility] Medical History Wears hearing aid Wears glasses Wears partial dentures History of steroid therapy Arthritis Dietary restriction Non-smoker History of echocardiogram History of stress test Cardiology follow-up encounter Diabetes Myocardial infarct Hypertension Osteoarthritis Gout Atherosclerosis of coronary artery of quileute heart without angina pectoris Hyperlipidemia Home Medications [...] Type Severity Reaction Status Date / Time Txqavns-OMI-FhW Reductase AdvReac Mild myalgias Verified 12/23/24 10:26 Inhibitor (Alkvbsl-Nli-Vfm Reductase Inhibitor) Family History Brother CAD (coronary [...] and well nourished (more content not included)... [facility] MR/POSTOP.ANEon 12-23-2024 MR/POSTOP.[facility] Medical Records Department [address] [place] [address] Anesthesia Postop Eval I 12/23/24 1332 MR#: [id number] Acct: [id number] Name: MARIA E GUTHRIE Rep #: [id number] : 1950 74 From: Priscilla Willard CRNA PCP: Dr. Matt Saul MD Status:[facility] Y Race: C Location: [place] [address] Anesthesia: Postop Eval I Current Vital Signs Temperature: 97 F Pulse Rate: 89 Blood Pressure: 145/87 Respiratory Rate: 18 Pulse Ox: 93 Assessment Airway patent: Yes Spontaneous unlabored respirations: Yes nausea: No Vomiting: No Anesthesia Complication: No Fluid Hydration Crystalloid volume administer (ml): 1,300 Total IV fluid infused: 1,300 Progress Note Anesthesia document: Postop Eval 1 completed: Yes 12/23/241332 Date Priscilla Willard PLASTIC BATTERY ASSEMBLER Cosigner Signature: Date CC: Signed [facility] MR/[id number] 12-23-2024 MR/POSTOPAN2 [facility] Medical Records Department [address] [facility] [place] [place] [address] Anesthesia Postop Eval II 12/23/24 1433 MR#: [id number] Acct: [id number] Name: MARIA E GUTHRIE Rep #: [id number] : 1950 74 From: Osei Lubin MD PCP: Dr. Matt Saul MD Status:ADM BAR Y Race: C [id number] Postop Eval I Sum Postop Eval Completion status Anesthesia document: Postop Eval 1 completed: Yes Anesthesia Postop Eval I Summary Anesthesia Postop Eval I Summary: Anesthesia Postop Eval I: Assessment Summary Airway patent Yes 12/23/24 13:32 PLASTIC BATTERY ASSEMBLER.CSIR Spontaneous unlabored Yes 12/23/24 13:32 PLASTIC BATTERY ASSEMBLER.CSIR respirations Mental status nausea No 12/23/24 13:32 PLASTIC BATTERY ASSEMBLER.CSIR Vomiting No 12/23/24 13:32 PLASTIC BATTERY ASSEMBLER.CSIR Anesthesia Postop Eval I: Fluid Summary Crystalloid volume administer 1,300 12/23/24 13:32 PLASTIC BATTERY ASSEMBLER.CSIR (ml) Colloids volume administered ( ml) Blood Product volume administered (ml) Total IV fluid infused 1,300 12/23/24 13:32 PLASTIC BATTERY ASSEMBLER.CSIR Anesthesia Postop Eval I: Summary Notes Anesthesia Complication No 12/23/24 13:32 PLASTIC BATTERY ASSEMBLER.CSIR Anesthesia Complication Comment: Post-operative progress note Anesthesia: Postop Eval II Evaluation Mental status: Awake and Calm Pain Level: 1 nausea: No Vomiting: No Complications Anesthesia Complication: No 12/23/24 1433 Date Osei Lubin MD Cosigner Signature: Date CC: Signed Normal [facility] Magnesiumon 12-23-2024 Magnesium [Mass/Vol] 1.8 mg/dL Normal 1.5-2.2 [facility] Comment on above: Performed By: #### L 501.5200 #### [facility] [place], [address] Magnesium measurement (mass/ volume)Ordered By: Faheem Barroso on 12-23-2024 Magnesium (Unsp spec) [Mass/Vol] 1.8 mg/dL 1.5-2.2 [facility] Operative Reporton Operative Report [facility] Medical Records Department [address] [place] [address] Operative Report 12/23/24 1322 MR#: [id number] Acct: [id number] Name: MARIA E GUTHRIE Rep #: [id number] : 1950 74 From: Major Yi DO PCP: Dr. Matt Saul MD Status:[facility] Location: [place] [address] Operative Report (Standard) Operative Information Date of Procedure: 12/23/24 Pre-Operative Diagnosis: Right shoulder rotator cuff tear arthropathy Post-Operative Diagnosis: Right shoulder rotator cuff tear arthropathy Surgery/Procedure Performed: Right reverse total shoulder arthroplasty bit bender: Yes Senior Project Controls Specialist: Oneyda Solano Tasks completed by first front ventilator: Opening closing, Implanting device, Hemostasis: Electrocautery and [...] No Description of surgery: Patient arrived to [facility] morning of the procedure and was [...] positioned in the beachchair position. A well-padded screwhead polisher was applied. The nonoperative extremity was placed [...] cartilaginous carla (more content not included)... Normal [facility] Shoulder min 2 Viewson 12-23 Shoulder min 2 Views [facility] Imaging Services [address] [place] [address] Shoulder min 2 Views MR#: [id number] Acct: [id number] Name: MARIA E GUTHRIE Rep #: [id number] : 1950 M 74 From: Seven Suárez MD PCP: Dr. Matt Saul MD Status: [facility] Study: Shoulder min 2 Views Date of Exam: 12/23/24 Exam# [id number] Ordering Dr: Major Yi DO PROCEDURE: SHOULDER [...] IMPRESSION: Right shoulder reverse arthroplasty. Reading Location: [place] [address] CC: Dr. Matt Saul MD; Dr. Major Yi DO Annual Giving Director: Signed [facility] MR/PAT.ANEon 12-04-2024 MR/PAT.ANE [facility] Medical Records Department [address] [facility] [place] [address] PAT - Anesthesia 12/04/241946 MR#: [id number] Acct: [id number] Name: MARIA E GUTHRIE Rep #: [id number] : 1950 74 From: Faheem Barroso MD PCP: Dr. Matt Saul MD Status:[facility] Y Race: C Location: [facility] Pre-Assessment Diagnosis/Proposed Procedure Planned Operative Procedure(s): RIGHT REVERSE TOTAL SHOULDER ARTHROPLASTY Anesthesia History Anesthesia History - florist: Anesthesia History - florist Hx Hospitalization No 12/03/24 10:59 Any Problems [...] take am of surgery PONV PONV - florist: PONV - florist Female No 12/03/24 10:59 HX of Motion Sickness No 12/03/24 10:59 HX of N/V After Surgery No 12/03/24 10:59 Non-Smoker Yes 12/03/24 10:59 Duration of Surgery greater Yes 12/03/24 10:59 than 60 minutes Number of Risk Factors 2 12/03/24 10:59 PONV Score Moderate Risk 12/03/24 10:59 Height Weight Height Weight: Anesthesia: Height Weight Height 6 ft 04/04/24 14:18 Respiratory Assessment Respiratory Assessment - florist: Respiratory Tract Infection Hx - florist Hx Respiratory Tract Infection No 12/03/24 10:59 STOP Sleep Apnea STOP Sleep Apnea - florist: STOP Sleep Apnea - florist Hx Hypertension Yes: CONTROLLED WITH MED 12/03/24 [...] Tobacco Use History Tobacco Use History - florist: Tobacco Use History - florist Tobacco Use Smoking Status Never smoker 12/03/24 10:59 Hx Tobacco Use No 12/03/24 10:59 Years Smoking Packs Smoked per Day Smoking Cessation Date was within the last 15 years Hx Smoking Cessation Date Hx Smoking Cessation Counseling Hematologic Medial History 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 Normal [facility] 12 Lead EKGon 11-27-2024 12 Lead EKG [facility] Cardiovascular Services [address] [place] [address] 12 Lead EKG 11/27/24 0654 MR#: [id number] Acct: [id number] Name: MARIA E GUTHRIE W Rep #: [id number] : 1950 74 From: Seven Grey MD Attending Dr: Dr. Major Yi DO Status: [facility] Ordering Dr: Major Yi DO Date: 11/27/24 Location: [facility] Sex: M C Admitted: Test Reason [...] Borderline ECG Confirmed by Seven Grey ([id number]), editorial project manager KARINA GIVENS ([id number]) on 11/27/2024 9:43:00 AM Referred By: Major Yi Confirmed By: Seven Grey 11/27/24 0943 Date Seven Grey MD CC: Dr. Matt Saul MD; Dr. Major Yi DO Signed Normal [facility] Electrocardiogram reportOrde red By: Seven Grey on 11-27-2024 EKG study [facility] Cardiovascular Services [address] [place] [address] 12 Lead EKG 11/27/24 0654 MR#: [id number] Acct: [id number] Name: MARIA E GUTHRIE Rep #:[id number] : 1950 74 From: Seven alcantara MD Attending Dr: Dr. Major Yi DO Status: [facility] Ordering Dr: Major Yi DO Date: 11/27/24 Location: [facility] Sex: M C Admitted: Test Reason [...] block Borderline ECG Confirmed by Seven Grey ([id number]), editorial project manager KARINA GIVENS ([id number]) on 59:43:00 AM Referred By: Major Yi Confirmed By: Seven Grey 11/27/24 0943 Date _ Seven Grey MD CC: Dr. Matt Saul MD; Dr. Major Yi DO ~ Signed [facility] Work Phone: Extremity Upper without Cont raon 11-26-2024 Extremity Upper without Contra [facility] Imaging Services [address] [place] [address] [id number] Extremity Upper without Contra MR#: [id number] Acct: [id number] Name: MARIA E GUTHRIE Rep #: [id number] : 1950 M 74 From: Gonzalez Garcia MD PCP: Dr. Matt Saul MD Status: REG CLI Study: Extremity Upper without Contra Date of Exam: 0 11/26/24 Exam# [id number] Ordering Dr: Major Yi DO PROCEDURE: EXTREMITY [...] Matt Saul MD; Dr. Major Yi DO Annual Giving Director: Signed Normal [facility] Urgent Care Visit Reporton 0 07-09-2024 Urgent Care Visit Report [facility] [address], [address] [place] [address] OFFICE VISIT Date of Service: 07/09/24 MR#: [id number] Acct: [id number] Name: MARIA E GUTHRIE Rep #: [id number] : 1950 Provider: EDILSON Salinas Age/Sex: 74/M Location: [facility] Status: Signed Intake Vital Signs 04/04/24 14:18 [...] Reasons: RASH ON BACK Chief Complaint: rash Electrical Line Worker Required: No Is patient in pain?: Yes Allergies Pikpauw-LLH-UrX Reductase Inhibitor (Bgtmqvx-Wmn-Yrs Reductase Inhibitor) Adverse Reaction (Mild, Verified 07/09/24 17:33) myalgias Have you fallen in the past year?: No Nurse's Note: rash to left upper buttock/low back x 3-4 days with burning. 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 No cifa-kqr-dhhpxto products taken to assist. No other associated symptoms and no other alleviating/aggravatin g factors. ROS Const Constitutional: No other (As above) Exam Const General: cooperative, healthy appearing and no acute distress Nutritional Appearance: average body habitus Orientation: alert and awake HENCO Head: normal to inspection Ears: hearing grossly [...] Rodríguez Signature: Date (if applicable) CC: Normal [facility] Ankle min 3 Viewson 06-19-19 25 Ankle min 3 Views [facility] Imaging Services [address] [place] [address] [id number] Ankle min 3 Views MR#: [id number] Acct: [id number] Name: MARIA E GUTHRIE Rep #: [id number] : 1950 M 74 From: Tenzin Joshua MD PCP: Dr. Matt Saul MD Status: REG CLI Study: Ankle min 3 Views Date of Exam: 06/18/24 Exam# [id number] Ordering Dr: Matt Saul EXAM: XR Right [...] evaluation with CT is recommended. Reading [facility] CC: Dr. Matt Saul MD Annual Giving Director: Signed Normal [facility] Foot min 3 Viewson Foot min 3 Views [facility] Imaging Services [address] [place], [place] [id number] Foot min 3 Views MR#: [id number] Acct: [id number] Name: MARIA E GUTHRIE Rep #: [id number] : 1950 M 74 From: Pako de leon MD PCP: Dr. Matt Saul MD Status: REG CLI Study: Foot min 3 Views Date of Exam: 06/18/24 Exam# [id number] Ordering Dr: Matt Saul PROCEDURE: FOOT MIN [...] suggestive of gout. Calcaneal spurs. Reading Location: [id number] CC: Dr. Matt Saul MD Annual Giving Director: Signed Normal [facility] Cardiology Visit Reporton Cardiology Visit Report [facility] [address] [place], [place] [address] OFFICE VISIT Date of Service: 04/04/24 MR#: [id number] Acct: [id number] Name: MARIA E GUTHRIE Rep #: [id number] : 1950 Provider: Dr. Nathan Purcell MD Age/Sex: 73/M Location: [facility] Status: Signed HPI HPI History of [...] has been put on Praluent by the [facility]. From a cardiac standpoint, the patient [...] Monitor Intake Visit Reasons: 1 Y FU Electrical Line Worker Required: No Accompanied by: Self Is patient in pain?: No Allergies Lwnpapg-NSE-VtA Reductase Inhibitor (Drefxri-Lss-Chz Reductase Inhibitor) Adverse Reaction (Mild, Verified 04/04/24 [...] Osteoarthritis Gout Atherosclerosis of coronary artery of quileute heart without angina pectoris PTSD (post-traumatic stress [...] no acu (more content not included)... Normal [facility] CNOVon 02-26-2024 CN Office Visit (GENSWS ) MARIA E GUTHRIE ([id number]) 1950 Date Time Provider Department 02/26/24 1:00 PM MADDIE BERNSTEIN GENS During your visit today, we recorded the following information about you: Maddie Bernstein APRN.CNP 02/26/2024 1:03 PM Signed FOLLOW UP VISIT - ENDOSCOPY Maria E John Maksim 1950 [id number] REFERRING PHYSICIAN: Matt Saul ([facility]) [address] [place] [address] Maria E Guthrie is a patient I [...] Maddie Bernstein APRN.BALJIT Referring Provider: MATT SAUL [[id number]] Allergies As of Date: 02/26/2024 Noted Allergy Reaction ZOCOR (SIMVASTATIN) 08/15/2006 5 - Intolerance Comments: myalgias Date Reviewed: 02/26/2024 Reviewed by: Maddie Bernstein APRN.DOUBLE END TRIMMER - Fully Assessed Reason for Visit: Follow Up [171] Cmt: Review colonoscopy results. Primary Visit Diagnosis:History of colonic polyps [Z86.0100] Prescriptions as of 02/26/2024 - alirocumab (PRALUENT) 150 mg/mL pen Inject 150 mg subcutaneously. - losartan (COZAAR) 100 mg tablet Take 100 mg by mouth. - fluticasone (FLONASE) 50 mcg/actuation nasal spray Use 1 Gowrie in the nose once daily. - cyanocobalamin [...] Status:Closed by MADDIE BERNSTEIN on 02/26/24 Normal [facility] [id number] 02-19-2024 [id number] HNO ID: [id number] Author: ESTELLE BIRD RN Service: ? Author Type: Registered Nurse Type: [id number] Filed: 02/19/2024 12:17 Note Text: The patient received a copy of Colonoscopy discharge instructions that contain information for how to contact the physician who performed the procedure and when to seek medical care. Normal [facility] Colonoscopyon 02-19-2024 [facility] Patient Name: Maria E Guthrie [...] previous diet. Procedure Code(s): --- Professional --- 96136, Colonoscopy, flexible; with biopsy, single or multiple G0500, Moderate sedation services provided by the same physician or other qualified health menagerie caretaker performing a gastrointestinal endoscopic service that sedation supports, requiring the presence of an independent trained observer to assist in the monitoring of the patient's level of consciousness and physiological status; initial 15 minutes of intra-service time; patient age 5 years or older (additional time may be reported with [address], as appropriate) Diagnosis Code(s): --- Professional --- Z12.11, Encounter for screening for malignant neoplasm of colon Z86.010, Personal history of colonic polyps K64.8, Other hemorrhoids D12.5, Benign neoplasm of sigmoid colon CPT copyright 2020 [employer]. All rights reserved. The codes documented in this report are preliminary and upon blending tank tender helper review may be revised to meet current compliance requirements. Attending Participation: I personally performed the entire procedure. Scope In: 11:39:45 AM Scope Out: 11:54:37 AM MD Demetri Sainz MD 02/19/2024 12:01:02 PM This report has been signed electronically by Demetri Lord MD Number of Addenda: 0 Note Initiated On: 02/19/2024 11:28 AM Estimated Blood Loss: Estimated blood loss was minimal. Normal [facility] Colonoscopy Study observatio non 02-19-2024 [facility] Gastrointestinal Endoscopy Patient Name: Maria E [...] previous diet. Procedure Code(s): --- Professional --- 93537, Colonoscopy, flexible; with biopsy, single or multiple G0500, Moderate sedation services provided by the same physician or other qualified health menagerie caretaker performing a gastrointestinal endoscopic service that sedation sup (more content not included)... PROVATION [facility] Radiology Study observation (narrative) [facility] HISTORY PHYSICALon HISTORY PHYSICAL HNO ID: [id number] Author: DEMETRI LORD MD Service: General Surgery [...] Last colonoscopy 06/[address] Park at [facility]. Sedation:Midazolam 5 mg IV, Fentanyl 100 [...] (FLONASE) 50 mcg/actuation nasal spray Use 1 Gowrie in the nose once daily. cyanocobalamin (VITAMIN [...] entered by the nurse and reviewed by va Nursing Notes: Francisca Spann RN 02/16/2024 2:03 [...] The pa (more content not included)... Normal [facility] SURGICAL PATHOLOGYon 024 CASE REPORT Normal [facility] Comment on above: Order Comment: Speci men Type: TISSUE SPECIMEN Ordering Facility: [facility] Address: [address] [place] [address] Result Comment: Surg ical Pathology Report Case: [id number] Authorizing Provider: Demetri Lord MD Collected: 02/19/2024 11:51 AM Ordering Location: Ambulatory Surgery Received: 02/19/2024 12:46 PM Pathologist: Tracie Hwang MD Specimen: Colon, Sigmoid, Polyp Performed By: #### S #### [facility] CLIA [id number] [address] [place] [address] [place] FINAL DIAGNOSIS Normal [facility] Comment on above: Order Comment: Speci men Type: TISSUE SPECIMEN Ordering Facility: [facility] Address: [address] [place] [address] Result Comment: A. C olon, sigmoid, polyp, polypectomy -Tubular adenoma Performed By: #### S #### [facility] CLIA [id number] [address] [place] [address] [place] FINAL PERFORMING LAB Normal [facility] Comment on above: Order Comment: Speci men Type: TISSUE SPECIMEN Ordering Facility: [facility] Address: [address] [place] [address] Result Comment: Diag nostic interpretation performed at [facility], [address] [place] [address] CLIA# [id number] Brickmason Supervisor: Karel Singer M.D. Performed By: #### S #### [facility] CLIA [id number] [address] [place] [address] [place] GROSS DESCRIPTION Normal [facility] Comment on above: Order Comment: Speci men Type: TISSUE SPECIMEN Ordering Facility: [facility] Address: [address] [place] [address] Result Comment: A. Luna olon, Sigmoid, Polyp Received in formalin is one piece of simon, soft tissue measuring 0.4 x 0.3 x 0.2 cm. Totally submitted in one cassette. KDK February 19, 2024 7:33 PM Gross examination performed at [facility], [address] [place] [address] Performed By: #### S #### [facility] CLIA [id number] [address] [place] [address] [id number] CNOVon 02-16-2024 CNOV Office Visit (GENSWS ) MARIA E GUTHRIE ([id number]) 1950 Date Time Provider Department 02/16/24 2:00 [...] Last colonoscopy 06/[address] Park at [facility]. Sedation:Midazolam 5 mg IV, Fentanyl 100 [...] (FLONASE) 50 mcg/actuation nasal spray Use 1 Gowrie in the nose once daily. cyanocobalamin (VITAMIN [...] entered by the nurse and reviewed by va Nursing Notes: Francisca Spann RN 02/16/2024 2:03 [...] stent. Respir (more content not included)... Normal [facility] Giovanni 02-16-2024 [facility] MARIA E GUTHRIE ([id number]) 1950 M Date Time Provider Department 02/16/24 MOLLY BERNSTEIN During your visit today, we recorded the following information about you: Melanie Marcelino 02/16/2024 2:37 PM Signed 02-19-2024 Colonoscopy concepción EFREN Cook prep, nurse went over instructions yudy has direct number to contact for any questions or concerns., Instructed patient to arrive at [address] [facility] Allergies As of Date: 02/16/2024 Noted Allergy Reaction ZOCOR (SIMVASTATIN) 08/15/2006 5 - Intolerance Comments: myalgias Date Reviewed: 02/16/2024 Reviewed by: Maddie Bernstein APRN.DOUBLE END TRIMMER - Fully Assessed Reason for Visit: 02-19-2024 Colonscoopy [Other] Prescriptions as of 03/18/2024 - alirocumab (PRALUENT) 150 mg/mL pen Inject 150 mg subcutaneously. - losartan (COZAAR) 100 mg tablet Take 100 mg by mouth. - fluticasone (FLONASE) 50 mcg/actuation nasal spray Use 1 Gowrie in the nose once daily. - cyanocobalamin [...] Encounter Status:Closed by MELANIE MARCELINO on 03/18/24 [facility] No Panel InformationOrdered By: Joe Joshua on 08-18-2023 Troponin I High Sensitivity 9 pg/mL 3.0-78.0 [facility] Comment on above: Please Note: New Nighat t Units and Gender Specific Reference Ranges. For more information see Policy Stat Procedure [place] High Sensitivity Troponin (TNIH) and attachments. Absolute lymphocyte countOrd ered By: Joe Joshua on 08-17-2023 Lymphocytes Auto (Unsp spec) [#/Vol] 2.02 10*3/uL 0.83-4.51 [facility] Automated lymphocyte count a s percentage of total leukocytesOrdered By: Joe Joshua on 08-17-2023 Lymphocytes/100 WBC Auto (Unsp spec) 49.8 % 19-41 [facility] Basophil percentageOrdered B y: Joe Joshua on 08-17-2023 Basophils/100 WBC (Bld) 0.5 % 0-1 [facility] Chloride [Moles/Vol] 101 mmol/L 98-107 [facility] Eosinophils/100 WBC (Bld) 0.7 % 0-5 [facility] Glucose [Mass/Vol] 195 mg/dL 74-106 [facility] Comment on above: Fasting Glucose resu lt greater than or equal to 126 mg/dL suggests DIABETES MELLITUS per A.D.A. criteria. Hemoglobin (Bld) [Mass/Vol] 15.4 g/dL 13.0-16.5 [facility] Monocytes/100 WBC (Bld) 10.1 % 0-10 [facility] Neutrophils (Bld) [#/Vol] 1.6 10*3/uL 2.0-7.7 [facility] Neutrophils/100 WBC (Bld) 38.9 % 47-70 [facility] Potassium [Moles/Vol] 3.1 mmol/L 3.5-5.1 [facility] Sodium [Moles/Vol] 135 mmol/L 136-145 [facility] WBC (Bld) [#/Vol] 4.1 10*3/uL 4.4-11.0 [facility] Determination of erythrocyte mean corpuscular volume (MCV)Ordered By: Joe Joshua on 08-17-2023 MCV (RBC) [Entitic vol] 87.0 fL 80-94 [facility] Erythrocyte distribution wid th ratioOrdered By: Joe Joshua on 08-17-2023 Erythrocyte distribution width (RBC) [Ratio] 13.0 % 11.6-14.6 [facility] Erythrocyte distribution wid th standard deviationOrdered By: Joe Joshua on 08-17-2023 Erythrocyte distribution width (RBC) [Entitic vol] 40.8 fL 35.1-43.9 [facility] Hematocrit Auto (Bld) [Volum e fraction]Ordered By: Joe Joshua on 08-17-2023 Hematocrit (Bld) [Volume fraction] 45.4 % 40-54 [facility] Immature granulocytes/100 WB C Auto (Bld)Ordered By: Joe Joshua on 08-17-2023 Immature granulocytes/100 WBC (Bld) 0.000 % 0.0-0.9 [facility] Comment on above: IG% - Immature Granu locytes (promyelocytes, myelocytes and metamyelocytes) > 1% indicates that a LEFT SHIFT is Present. Laboratory - Chemistry and C hemistry - challengeOrdered By: Joe Joshua on 08-17-2023 CO2 [Moles/Vol] 29.0 mmol/L 21.0-32.0 [facility] Urea nitrogen/Creatinine [Mass ratio] 18.5 mg/mg 10-20 [facility] Laboratory - Hematology and Cell countsOrdered By: Joe Joshua on 08-17-2023 MCH (RBC) [Entitic mass] 29.5 pg 27.0-32.0 [facility] MCHC (RBC) [Mass/Vol] 33.9 g/dL 32-36 [facility] Nucleated RBC/100 WBC (Bld) [Ratio] 0 % 0-5 [facility] Platelet mean volume (Bld) [Entitic vol] 10.7 fL 6.2-12.0 [facility] Platelets (Bld) [#/Vol] 147 10*3/uL 150-450 [facility] No Panel InformationOrdered By: Joe Joshua on 08-17-2023 D-Dimer Quantitative (PE/DVT) 0.44 FEU/ug/m 0.27-0.49 [facility] Comment on above: NORMAL D-Dimer level (<0.50) indicates no DVT or PE. Estimated Creatinine Clearance Calc 72.22 ml/min [facility] Estimated GFR (MDRD) Amer 97 mL/min >60 [facility] Comment on above: GFR Calc Estimated GFR (MDRD) Non-Af Amer 80 mL/min >60 [facility] Comment on above: Non- GFR Calc RBC Auto (Bld) [#/Vol]Ordere d By: Joe Joshua on 08-17-2023 RBC (Bld) [#/Vol] 5.22 10*6/uL 4.6-6.2 [facility] Serum or plasma calcium collin urement (mass/volume)Ordered By: Joe Joshua on 08-17-2023 Calcium [Mass/Vol] 9.4 mg/dL 8.5-10.1 [facility] Serum or plasma creatinine m easurement (mass/volume)Ordered By: Joe Joshua on 08-17-2023 Creatinine [Mass/Vol] 0.97 mg/dL 0.70-1.30 [facility] Comment on above: The validity of the calculated GFR & GFRAA in patients over 70 years has not been determined. Clinical correlation is essential. Serum or plasma urea nitroge n measurement (mass/volume)Ordered By: Joe Joshua on 08-17-2023 Urea nitrogen [Mass/Vol] 18 mg/dL 7-18 [facility] Thin prep Papanicolaou smear with manual screeningOrdered By: Joe Joshua on 08-17-2023 Thin prep Papanicolaou smear with manual screening 5 5-15 [facility] No Panel Informationon 05-17 Influenza Types A,B Rapid (Clinic) Pos FLU A &Neg FLU B [facility] Office Visiton 11-08-2016 Fall risk assessment No [facility] Work Phone: [phone] Protein mass conc Done [facility] Work Phone: [phone] Chart Maintenanceon 11-07-19 17 Left ventricular Ejection fraction 75 % [facility] Work Phone: Office Visiton 03-29-2016 Dietary management education, guidance, and counseling (procedure) yes Invalid Interpretation Code [facility] Work Phone: [phone] Documentation of current medications (procedure) Done Invalid Interpretation Code [facility] Work Phone: [phone] Tobacco smoking status NHIS Never smoker [facility] Work Phone: [phone] Tobacco use CPHS Never smoker Invalid Interpretation Code [facility] Work Phone: [phone] Clinical Lists Update: Prelo artisan plasterer 12-22-2015 Alanine aminotransferase (ALT) 45 U/L [facility] Work Phone: [phone] Albumin 4.1 g/dL [facility] Work Phone: [phone] Alkaline phosphatase (ALP) 51 U/L Invalid Interpretation Code [facility] Work Phone: [phone] ALP enzyme act/vol (Bld) 51 U/L [facility] Work Phone: [phone] Anion gap 16 mmol/L Invalid Interpretation Code [facility] Work Phone: [phone] Anion gap molar conc 16 mmol/L [facility] Work Phone: [phone] Aspartate aminotransferase (AST) 40 U/L [facility] Work Phone: [phone] Bilirubin (total) 0.5 mg/dL [facility] Work Phone: [phone] Calcium 8.9 mg/dL [facility] Work Phone: [phone] Chloride 109 mmol/L High [facility] Work Phone: [phone] Cholesterol 202 mg/dL High [facility] Work Phone: [phone] CO2 19 mmol/L Low [facility] Work Phone: [phone] CO2 ppres (BldV) 19 mmol/L Low [facility] Work Phone: [phone] Creatinine 1.0 mg/dL [facility] Work Phone: [phone] Erythrocyte distribution width Ratio (RBC) 13.6 % [facility] Work Phone: [phone] Erythrocytes (RBC) 5.69 10*6/uL Invalid Interpretation Code [facility] Work Phone: [phone] Glucose 117 mg/dL Invalid Interpretation Code [facility] Work Phone: [phone] Glucose mass conc 117 mg/dL [facility] Work Phone: [phone] HbA1c 6.5 % High [facility] Work Phone: [phone] HDL Cholesterol 45 mg/dL [facility] Work Phone: [phone] Hematocrit (HCT) 49.1 % Invalid Interpretation Code [facility] Work Phone: [phone] Hematocrit Volume Fraction (Bld) 49.1 % [facility] Work Phone: [phone] Hemoglobin (HGB) 16.6 g/dL [facility] Work Phone: [phone] LDL Cholesterol 130 mg/dL High [facility] Work Phone: [phone] Magnesium 2.3 mg/dL [facility] Work Phone: [phone] MCH 29.2 pg Invalid Interpretation Code [facility] Work Phone: [phone] MCH Entitic mass (RBC) 29.2 pg [facility] Work Phone: [phone] MCHC 33.8 g/dL Invalid Interpretation Code [facility] Work Phone: [phone] MCHC mass conc (RBC) 33.8 g/dL [facility] Work Phone: [phone] MCV 86.3 fL Invalid Interpretation Code [facility] Work Phone: [phone] MCV Entitic volume (RBC) 86.3 fL [facility] Work Phone: [phone] Platelets 245 10*3/mm3 Invalid Interpretation Code [facility] Work Phone: [phone] Platelets #/vol (Bld) 245 10*3/mm3 [facility] Work Phone: [phone] Potassium 3.9 mmol/L [facility] Work Phone: [phone] Protein 7.3 g/dL [facility] Work Phone: [phone] RBC #/vol (Bld) 5.69 10*6/uL [facility] Work Phone: [phone] RDW-CA 13.6 % Invalid Interpretation Code [facility] Work Phone: [phone] Sodium 140 mmol/L [facility] Work Phone: [phone] Thyroid stimulating hormone (TSH) 1.23 u[iU]/mL [facility] Work Phone: [phone] Thyroxine (T4) free 1.05 ng/dL [facility] Work Phone: [phone] Triglyceride 272 mg/dL High [facility] Work Phone: [phone] Urea nitrogen 19 mg/dL [facility] Work Phone: [phone] WBC #/vol (Bld) 4.84 10*3/uL [facility] Work Phone: [phone] WBC (Leukocytes) 4.84 10*3/uL Invalid Interpretation Code [facility] Work Phone: [phone] Lab Report: Lipid Profileon 04-08-2015 very low density lipoproteins 35 mg/dL 5-40 [facility] Work Phone: [phone] Lab Report: Liver Profileon 04-08-2015 Bilirubin (direct) 0.12 mg/dL 0.00-0.30 [facility] Work Phone: [phone] Globulin 3.2 g/dL Invalid Interpretation Code 2.3-3.5 [facility] Work Phone: [phone] Globulin mass conc (S) 3.2 g/dL 2.3-3.5 [facility] Work Phone: [phone] Clinical Lists Update: Prelo artisan plasterer 04-02-2014 Globulin 3.0 g/dL Invalid Interpretation Code [facility] Work Phone: [phone] Globulin mass conc (S) 3.0 g/dL [facility] Work Phone: [phone] External Other: Preferred Me thod of Contacton 04-02-2014 methcontact secmsg [facility] Work Phone: [phone] Patient's prefered method of contact secmsg Invalid Interpretation Code [facility] Work Phone: [phone] Lab Report: Liver Profileon 04-02-2014 ALK P 49 U/L Critically low 50-136 [facility] Work Phone: [phone] GE use only - for LinkLogic import when terms are not otherwise specified 49 U/L Critically low 50-136 [facility] Work Phone: [phone] Office Visiton 03-31-2014 cardiac risk group C [facility] Work Phone: [phone] General cardiovascular disease 10Y risk [#] [place]Kei'Agomik N/A SHADO Work Phone: Vital Signs Date Time Vital Sign Value Performing Clinician Alexa bedoya 12-24-2024 08:33-0400 Heart rate 58 /min Dr. Matt Saul MD Work Phone: [facility] 12-24-2024 08:26-0400 Body temperature 97.6 [degF] Dr. Matt Saul MD Work Phone: [facility] 12-24-2024 08:26-0400 Diastolic blood pressure 71 mm[Hg] Dr. Matt Saul MD Work Phone: 8(140)372-777781 [place] [address] 12-24-2024 08:26-0400 Respiratory rate 18 /min Dr. Matt Saul MD Work Phone: 3(118)522-661480 [address] 12-24-2024 08:26-0400 SaO2% (BldA) [Mass fraction] 95 % Dr. Matt Saul MD Work Phone: 6(073)624-560980 [address] 12-24-2024 08:26-0400 Systolic blood pressure 128 mm[Hg] Dr. Matt Saul MD Work Phone: 2(290)202-209180 [address] 12-23-2024 18:43-0400 Inhaled oxygen flow rate 2 L/min Dr. Matt Saul MD Work Phone: [facility] 12-23-2024 14:44-0400 Body height 182.[address] Matt Saul MD Work Phone: 4(740)511-999480 [address] 12-23-2024 14:44-0400 Body mass index (BMI) [Ratio] 26.9 kg/m2 Dr. Matt Saul MD Work Phone: 1(297)266-801281 [place] [address] 12-23-2024 14:44-0400 Body weight [address] Matt Saul MD Work Phone: 9(501)046-606061 [place] [address] 04-04-2024 14:18-0500 Body height 182.[address] Matt Saul MD Work Phone: 6(779)589-423180 [address] 04-04-2024 14:18-0500 Body mass index (BMI) [Ratio] 27.2 kg/m2 Dr. Matt Saul MD Work Phone: [facility] 04-04-2024 14:18-0500 Body weight 91.[address] Matt Saul MD Work Phone: [facility] 04-04-2024 14:18-0500 Diastolic blood pressure 90 mm[Hg] Dr. Matt Saul MD Work Phone: [facility] 04-04-2024 14:18-0500 Heart rate 69 /min Dr. Matt Sual MD Work Phone: [facility] 04-04-2024 14:18-0500 Respiratory rate 16 /min Dr. Matt Saul MD Work Phone: [facility] 04-04-2024 14:18-0500 Systolic blood pressure 132 mm[Hg] Dr. Matt Saul MD Work Phone: [facility] 02-19-2024 12:20-0500 Diastolic blood pressure 72 mm[Hg] Demetri Lord MD Work Phone: [facility] 02-19-2024 12:20-0500 Heart rate 55 /min Demetri Lord MD Work Phone: [facility] 02-19-2024 12:20-0500 Respiratory rate 16 /min Demetri Lord MD Work Phone: [facility] 02-19-2024 12:20-0500 SaO2% (BldA) [Mass fraction] 95 % Demetri Lord MD Work Phone: [facility] 02-19-2024 12:20-0500 Systolic blood pressure 115 mm[Hg] Demetri Lord MD Work Phone: [facility] 02-19-2024 10:40-0500 Body mass index (BMI) [Ratio] 27.18 kg/m2 Demetri Lord MD Work Phone: [facility] 02-19-2024 10:40-0500 Body temperature 98.4 [degF] Demetri Lord MD Work Phone: [facility] 02-19-2024 10:40-0500 Body weight 90.9 kg Demetri Lord MD Work Phone: [facility] 02-16-2024 14:03-0400 Body height 182.9 cm Maddie Jakob HOSPICE HOME CARE COORDINATOR.DOUBLE END TRIMMER Work Phone: [facility] 02-16-2024 14:03-0400 Body mass index (BMI) [Ratio] 27.18 kg/m2 Maddie Jakob HOSPICE HOME CARE COORDINATOR.DOUBLE END TRIMMER Work Phone: [facility] 02-16-2024 14:03-0400 Body temperature 97.81 [degF] Maddie Jakob HOSPICE HOME CARE COORDINATOR.DOUBLE END TRIMMER Work Phone: [facility] 02-16-2024 14:03-0400 Body weight 90.9 kg Maddie Jakob HOSPICE HOME CARE COORDINATOR.DOUBLE END TRIMMER Work Phone: [facility] 02-16-2024 14:03-0400 Diastolic blood pressure 82 mm[Hg] Maddie Jakob HOSPICE HOME CARE COORDINATOR.DOUBLE END TRIMMER Work Phone: [facility] 02-16-2024 14:03-0400 Heart rate 80 /min Maddie Jakob HOSPICE HOME CARE COORDINATOR.DOUBLE END TRIMMER Work Phone: [facility] 02-16-2024 14:03-0400 SaO2% (BldA) [Mass fraction] 92 % Maddie Jakob HOSPICE HOME CARE COORDINATOR.DOUBLE END TRIMMER Work Phone: [facility] 02-16-2024 14:03-0400 Systolic blood pressure 138 mm[Hg] Maddie Jakob HOSPICE HOME CARE COORDINATOR.DOUBLE END TRIMMER Work Phone: [facility] 08-18-2023 01:00-0400 Body temperature 98.5 [degF] Dr. Matt Saul Work Phone: [facility] 08-18-2023 01:00-0400 Diastolic blood pressure 91 mm[Hg] Dr. Matt Saul Work Phone: [facility] 08-18-2023 01:00-0400 Heart rate 59 /min Dr. Matt Saul Work Phone: [facility] 08-18-2023 01:00-0400 Respiratory rate 18 /min Dr. Matt Saul Work Phone: 5(977)[phone] [address] 08-18-2023 01:00-0400 SaO2% (BldA) [Mass fraction] 98 % Dr. Matt Saul Work Phone: [facility] 08-18-2023 01:00-0400 Systolic blood pressure 148 mm[Hg] Dr. Matt Saul Work Phone: 9(717)825-151161 [place] [address] 08-17-2023 21:03-0400 Body height 182.[address] Matt Saul Work Phone: 5(098)854-387481 [place] [address] 08-17-2023 21:03-0400 Body mass index (BMI) [Ratio] 27.7 kg/m2 Dr. Matt Saul Work Phone: 0(393)552-205280 [address] 08-17-2023 21:03-0400 Body weight 92.[address] Matt Saul Work Phone: 3(882)914-963881 [place] [address] 05-17-2023 11:30-0500 Body mass index (BMI) [Ratio] 28.2 kg/m2 Dr. Matt Saul Work Phone: 2(162)018-360261 [place] [address] 05-17-2023 11:30-0500 Body temperature 97.8 [degF] Dr. Matt Saul Work Phone: 9(080)474-319461 [place] [address] 05-17-2023 11:30-0500 Body weight 94.[address] Matt Saul Work Phone: 5(041)320-615981 [place] [address] 05-17-2023 11:30-0500 Diastolic blood pressure 76 mm[Hg] Dr. Matt Saul Work Phone: 9(035)166-791480 [address] 05-17-2023 11:30-0500 Heart rate 71 /min Dr. Matt Saul Work Phone: [facility] 05-17-2023 11:30-0500 Respiratory rate 16 /min Dr. Matt Saul Work Phone: [facility] 05-17-2023 11:30-0500 SaO2% (BldA) [Mass fraction] 96 % Dr. Matt Saul Work Phone: [facility] 05-17-2023 11:30-0500 Systolic blood pressure 140 mm[Hg] Dr. Matt Saul Work Phone: [facility] 02-08-2023 13:58-0400 Body height 182.[address] Armond Saul Work Phone: 8(779)213-715380 [address] 02-08-2022 13:51-0400 Body height 182.[address] Armond Saul Work Phone: 7(747)481-388080 [address] 02-08-2022 13:51-0400 Body mass index (BMI) [Ratio] 26.9 kg/m2 Dr. Armond Saul Work Phone: 7(650)[phone] [place] [address] 02-08-2022 13:51-0400 Body mass index (BMI) [Ratio] 28 kg/m2 Dr. Armond Saul Work Phone: [facility] 02-08-2022 13:51-0400 Body weight 90.[address] Armond Saul Work Phone: [facility] 02-08-2022 13:51-0400 Body weight 93.[address] Armond Saul Work Phone: [facility] 02-08-2022 13:51-0400 Diastolic blood pressure 91 mm[Hg] Dr. Armond Saul Work Phone: [facility] 02-08-2022 13:51-0400 Diastolic blood pressure 84 mm[Hg] Dr. Armond Saul Work Phone: [facility] 02-08-2022 13:51-0400 Heart rate 70 /min Dr. Armond Saul Work Phone: [facility] 02-08-2022 13:51-0400 Heart rate 67 /min Dr. Armond Saul Work Phone: [facility] 02-08-2022 13:51-0400 Respiratory rate 16 /min Dr. Armond Saul Work Phone: [facility] 02-08-2022 13:51-0400 Respiratory rate 18 /min Dr. Armond Saul Work Phone: [facility] 02-08-2022 13:51-0400 SaO2% (BldA) [Mass fraction] 95 % Dr. Armond Saul Work Phone: [facility] 02-08-2022 13:51-0400 SaO2% (BldA) [Mass fraction] 94 % Dr. Armond Saul Work Phone: [facility] 02-08-2022 13:51-0400 Systolic blood pressure 155 mm[Hg] Dr. Armond Saul Work Phone: [facility] 02-08-2022 13:51-0400 Systolic blood pressure 132 mm[Hg] Dr. Armond Saul Work Phone: [facility] 11-08-2016 13:10-0400 BMI (Body Mass Index) 28.87 kg/m2 [facility] Work Phone: 11-08-2016 13:10-0400 BP Diastolic 68 mm[Hg] [facility] Work Phone: 11-08-2016 13:10-0400 BP Systolic 130 mm[Hg] [facility] Work Phone: 11-08-2016 13:10-0400 Height 180.34 cm [facility] Work Phone: 11-08-2016 13:10-0400 Pulse (Heart Rate) 58 /min [facility] Work Phone: 11-08-2016 13:10-0400 Respiratory [...] Provider Facility Start: 02-26-2025 ambulatory Oneyda Solano Facility:[facility] Start: 01-15-2025 Registered Recurring Oneyda Solano PA -Physical Therapy Work Phone: Start: 01-06-2025 End: 01-06-[address] Matt Saul MD Work Phone: -Laboratory Specimen Start: 01-06-2025 End: 01-06-[address] Matt Saul MD -Laboratory Specimen Work Phone: Start: 01-06-2025 End: 01-06-2025 ambulatory Matt Saul Facility:[facility] Start: 12-26-2024 Encounter for other preprocedural examination [facility] Start: 12-26-2024 Encounter for preprocedural cardiovascular examination [facility] Start: 12-24-2024 Non-patient / Non-visit Dr. Yumiko Carrillo MD -[facility] Work Phone: Start: 12-23-2024 Non-patient / Non-visit [facility]. Mckeon [facility] -[facility] Work Phone: Start: 12-23-2024 End: 12-24-2024 ambulatory Major Yi Facility:[facility] Start: 12-23-2024 End: 12-24-2024 Evaluation and management of inpatient Dr. Major Yi DO -Medical Surgical 3 Work Phone: Start: 12-23-2024 End: 12-24-[address] Matt Saul MD Work Phone: -Medical Surgical 3 Start: 11-27-2024 ambulatory Major Carrascoi ty:[facility] Start: 11-27-2024 Non-patient / Non-visit Dr. Seven Grey MD -[facility] Work Phone: Start: 11-26-2024 End: 11-26-[address] Matt Saul MD Work Phone: -Cat Scan [facility] Start: 11-26-2024 End: 11-26-[address] Major Yi DO -Cat Scan [facility] Work Phone: Start: 11-26-2024 End: 11-26-2024 ambulatory Major Yi Facility:[facility] Start: 07-09-2024 End: 07-09-2024 ambulatory Yang WAGGONER Facility:[facility] Start: 06-18-2024 End: 06-18-[address] Matt Saul MD Work Phone: [facility] Work Phone: Start: 06-18-2024 End: 06-18-[address] Matt Saul MD -Radiology, [place] Work Phone: Start: 06-18-2024 End: 06-18-2024 [place] Facility:[facility] Start: 04-04-2024 End: 04-04-[address] Nathan Purcell MD -[facility] Work Phone: Start: 04-04-2024 End: 04-04-2024 ambulatory Nathan Purcell Facility:[facility] Start: 02-26-2024 End: 02-26-2024 ambulatory [facility] Facility:[facility] Start: 02-26-2024 End: 02-26-2024 Patient encounter procedure Maddie Bernstein APRN.DOUBLE END TRIMMER Work Phone: General Surgery Comment on above: History of colonic p olyps (Primary Dx) Start: 02-19-2024 End: 02-19-2024 ambulatory [facility] Facility:[facility] Start: 02-19-2024 End: 02-19-2024 Subsequent hospital visit by physician Demetri Lord MD Work Phone: Ambulatory Surgery Comment on above: History of colonic p olyps [Z86.0100] Start: 02-16-2024 End: 02-16-2024 ambulatory [facility] Facility:[facility] Start: 02-16-2024 End: 02-16-2024 Patient encounter procedure Maddie Bernstein APRN.DOUBLE END TRIMMER Work Phone: General Surgery Comment on above: History of colonic p olyps (Primary Dx); Screen for colon cancer Start: 02-16-2024 End: 03-18-2024 Telephone encounter Molly VEGA General Surgery Comment on above: 02-19-2024 Colonscoo py Start: 08-17-2023 End: 08-18-2023 Emergency department patient visit Dr. Matt Saul Work Phone: [facility]-Emergency Department Work Phone: Start: 05-17-2023 End: 05-17-[address] Matt Saul Work Phone: [facility] Work Phone: Start: 03-15-2023 Non-patient / Non-visit Dr. Jabier Saul Work Phone: [facility] Work Phone: Start: 03-14-2023 Non-patient / Non-visit Dr. Jabier Saul Work Phone: [facility] Start: 03-14-2023 End: 03-14-[address] Armond Saul Work Phone: [facility] Work Phone: Start: 03-14-2023 End: 03-14-[address] Armond Saul Work Phone: [facility] Work Phone: Start: 02-08-2023 End: 02-08-[address] Armond Saul Work Phone: [facility] Work Phone: Start: 05-20-2022 Non-patient / Non-visit Dr. Jabier Saul Work Phone: [facility] Start: 05-17-2022 Non-patient / Non-visit Dr. Jabier Saul Work Phone: [facility] Start: 05-17-2022 End: 05-17-[address] Armond Saul Work Phone: [facility] Work Phone: Start: 05-17-2022 End: 05-17-[address] [facility] Start: 05-04-[address] Rowdy Saul Work Phone[facility] Start: 02-08-2022 End: 02-08-[address] Armond Saul Work Phone: [facility] Procedures Date Procedure [...] dx w/collj spec when pfrmd Maddie Bernstein HOSPICE HOME CARE COORDINATOR.DOUBLE END TRIMMER Work Phone: Start: 02-19-2024 Colonoscopy Demetri abernathy [...] - S marciano or Plasma Maddie Bernstein APRN.DOUBLE END TRIMMER Work Phone: Start: 03-31-2014 End: 04-02-2014 *Hepatic [...] P,Tdap,Td Vaccine (4 - Td or Tdap) [facility] Start: 02-18-2027 Screening for malign ant neoplasm of colon [facility] Start: 12-24-2024 Patient discharge [facility] Start: 12-23-2024 Care regimes management [facility] Start: 12-23-2024 Notification of physician [facility] Start: 12-23-2024 [facility] Start: 12-23-2024 Application of intermittent pneumatic compression device [facility] Start: 12-23-2024 Following clinical p athway protocol [facility] Start: 12-23-2024 Anes arthroscopic to bernard shoulder replacement ANESTH SHOULDER REPLACEMENT [facility] Start: 12-23-2024 Prosthetic total arthroplasty of left shoulder RECONSTRUCT SHOULDER JOINT [facility] Start: 12-23-2024 Admission procedure [facility] Start: 12-23-2024 Ambulation therapy management [facility] Start: 12-23-2024 Application of device [facility] Start: 12-23-2024 Assessment of risk o f venous thromboembolism [facility] Start: 12-23-2024 Catheterization of vein [facility] Start: 12-23-2024 Following clinical p athway protocol [facility] Start: 12-23-2024 Incentive spirometry [facility] Start: 12-23-2024 Introduction of urin angeline catheter [facility] Start: 12-23-2024 Measuring intake and output [facility] Start: 12-23-2024 Neurovascular assessment [facility] Start: 12-23-2024 Patient education [facility] Start: 12-23-2024 Procedure discontinued [facility] Start: 12-23-2024 Provision of activit y privileges [facility] Start: 12-23-2024 Recommendation to co ritika with treatment [facility] Start: 12-23-2024 Referral to occupati onal therapist [facility] Start: 12-23-2024 Vital signs measurements [facility] Start: 12-23-2024 Wound care [facility] Start: 12-23-2024 [facility] Start: 12-23-2024 Consultation [facility] Start: 02-26-2024 End: 02-26-2024 Patient encounter procedure 02/26/2024 1:00 PM EST Office Visit General Surgery [address] [place] [address] Maddie Bernstein APRN.DOUBLE END TRIMMER [address] [place] [address] Colonsocopy follow up 02-19-2024 General Surgery Comment on above: Colonsocopy follow u p 02-19-2024 Start: 02-19-2024 End: 02-19-2024 Patient encounter procedure 02/19/2024 11:45 AM EST Appointment Ambulatory Surgery [address] [place] [address] Demetri Lord MD [address] [place] [address] Ambulatory Surgery Start: 08-18-2023 [facility] Start: 08-17-2023 [facility] Start: 07-01-2023 Screening for malign ant neoplasm of colon [facility] Start: 04-17-2023 Advance Directive Discussion Advance Directive Discussion [facility] Start: 03-21-2022 Diabetes Screening Diabetes Screenin g [facility] Start: 11-15-2021 Pneumococcal Vaccine : 65+ (2 of 2 - PPSV23 or PCV20) Pneumococcal Vaccine: 65+ (2 of 2 - PPSV23 or PCV20) [facility] Start: 04-02-2019 Lipid panel Lipid Screening [facility] Start: 05-11-2017 End: 05-11-2017 Appointment Appointment [facility] Work Phone: Start: 11-08-2016 End: 11-08-2016 Appointment Appointment [facility] Work Phone: Start: 11-08-2016 End: 11-08-2016 *Hepatic Function Panel *Hepatic Function Panel [facility] Work Phone: Start: 11-08-2016 End: 11-08-2016 GERRY GARRETT [facility] Work Phone: Start: 11-08-2016 End: 11-08-2016 Follow Up Appt 6 months Follow Up Appt 6 months [facility] Work Phone: Start: 11-08-2016 End: 11-08-2016 Lipid 1996 panel *Lipid Profile CC PCP [facility] Work Phone: Start: 10-19-2016 End: 11-08-2016 *Hepatic Function Panel *Hepatic Function Panel [facility] Work Phone: Start: 10-19-2016 [...] Lipid panel [AGGREGATE] *Lipid Profile CC PCP [facility] Work Phone: Start: 03-31-2015 End: 04-08-2015 *Hepatic Function Panel *Hepatic Function Panel [facility] Work Phone: Start: 03-31-2015 End: 03-31-2015 GERRY GARRETT [facility] Work Phone: Start: 03-31-2015 End: 03-31-2015 Follow Up Appt 1 year Follow Up Appt 1 year [facility] Work Phone: Start: 03-31-2015 End: 04-08-2015 Lipid panel [AGGREGATE] *Lipid Profile CC PCP [facility] Work Phone: Start: 12-29-2014 End: 12-30-2014 Stress Echocardiogram (treadmill) Stress Echocardiogram (treadmill) [facility] Work Phone: Start: 03-31-2014 End: 04-02-2014 *Hepatic Function Panel *Hepatic Function Panel [facility] Work Phone: Start: 03-31-2014 End: 03-31-2014 GERRY GERRY [facility] Work Phone: Start: 03-31-2014 End: 03-31-2014 Follow Up Appt 1 year Follow Up Appt 1 year [facility] Work Phone: Start: 03-31-2014 End: 04-02-2014 Lipid panel [AGGREGATE] *Lipid Profile CC PCP [facility] Work Phone: Start: 03-31-2014 End: 03-31-2014 Stress Echocardiogram (treadmill) Stress Echocardiogram (treadmill) [facility] Work Phone: Start: 06-10-2013 End: 06-10-2013 GERRY GERRY [facility] Work Phone: Start: 06-10-2013 End: 06-10-2013 Follow Up Appt 1 year Follow Up Appt 1 year [facility] Work Phone: Start: 03-25-2013 End: 03-25-2013 GERRY GERRY [facility] Work Phone: Start: 03-25-2013 End: 03-25-2013 Follow Up Appt 1 year Follow Up Appt 1 year [facility] Work Phone: Start: 08-07-2005 Hepatitis B surface antibody level LDL Cholesterol [facility] Start: 1993 Screening for malign ant neoplasm of colon [facility] Start: 1966 Annual PCP Team We[employer]her And Grader kavin Disease Visit Annual PCP Team Chronic Disease Visit [facility] Start: 1966 BP Controlled (<130/80) BP Controlle d (<130/80) [facility] Start: 1966 Depression Screening Depression Scre ening [facility] Start: 1966 Hepatitis C screening Hepatitis C Sc [facility] Patient Education [employer] Work Phone: Patient referral [place] [facility] Work Phone: End: 02-15-2025 Screening colonoscopy COLONOSCOPY SCREENING Endoscopy Routine History of colonic polyps Screen for colon cancer 1 Occurrences starting 02/16/2024 until 02/15/2025 [facility] Work Phone: Comment on above: 1 Occurrences starti ng 02/16/2024 until 02/15/2025 SURGICAL PATHOLOGY [facility] Work Phone: Comment on above: Release Upon Orderin g for 1 Occurrences starting 02/19/2024, 1 completed Immunizations Immunization Date Immunization Notes Care Provider Fa cility 07-13-2020 Covid (Moderna) Dr. Selena Saul Work Phone: [facility] 06-15-2020 Kia (Moderna) Dr. Selena Saul Work Phone: [facility] 01-30-2014 influenza, seasonal, injectable Maddie Jakob HOSPICE HOME CARE COORDINATOR.DOUBLE END TRIMMER Work Phone: [facility] Work Phone: 02-09-2013 influenza virus vaccine, unspecified formulation Maddie Jakob HOSPICE HOME CARE COORDINATOR.DOUBLE END TRIMMER Work Phone: [facility] 06-11-2012 tetanus toxoid, reduced diphtheria toxoid, and acellular pertussis vaccine, adsorbed Maddie Jakob HOSPICE HOME CARE COORDINATOR.DOUBLE END TRIMMER Work Phone: [facility] 06-11-2012 zoster vaccine, live Kimberl ey Jakob HOSPICE HOME CARE COORDINATOR.DOUBLE END TRIMMER Work Phone: [facility] 02-05-2011 influenza virus vaccine, unspecified formulation Maddie Jakob HOSPICE HOME CARE COORDINATOR.DOUBLE END TRIMMER Work Phone: [facility] 01-26-2010 influenza virus vaccine, unspecified formulation Maddie Jakob HOSPICE HOME CARE COORDINATOR.DOUBLE END TRIMMER Work Phone: [facility] Work Phone: 01-21-2009 influenza virus vaccine, unspecified formulation Maddie Jakob HOSPICE HOME CARE COORDINATOR.DOUBLE END TRIMMER Work Phone: [facility] Work Phone: 02-21-2008 influenza virus vaccine, unspecified formulation Maddie Jakob HOSPICE HOME CARE COORDINATOR.DOUBLE END TRIMMER Work Phone: [facility] Work Phone: 02-20-2007 influenza virus vaccine, unspecified formulation Maddie Jakob HALL Work Phone: [facility] 07-21-2003 tetanus and diphther ia toxoids, adsorbed, preservative free, for adult use (2 Lf of tetanus toxoid and 2 Lf of diphtheria toxoid) Maddie Jakob HALL Work Phone: [facility] Payers Date Payer Category Payer Self-pay [id number] 2017 Private Health Insurance AETNA S UPPLEMENT AETNA MEDICARE SUPPLEMENT [id number] 2017-Present [phone] [address] [address] [place] [address] Indemnity [id number] 2017 Private Health Insurance [facility] [id number] 2014 Unknown [id number] 2013 Medicare MEDICARE MEDICAR E A AND B [id number] 2013-Present [phone] [address] [address] [place] [address] Medicare [id number] 2013 Medicare [id number] Unknown [id number] Unknown [id number]. [id number] Unknown [id number]. [id number] Unknown [id number]. 2.462 Unknown [id number]. 2.462 Unknown [id number] [id number]. 2.462 Unknown [id number]. 2.462 Unknown [id number]. 2.462 Unknown [id number] [id number]. 2.462 Unknown [id number] [id number]. 2.462 Unknown [id number] 2.462 Social History Date Type Detail Facility Start: 02-08-2022 End: 08-17-2023 Tobacco smoking status UTIS Unknown if ever smoked [facility] Start: 1950 Sex Assigned At Male [facility] Start: 07-20-2017 End: 12-03-2024 Tobacco smoking status UTIS Never smoked tobacco [facility] Start: 07-20-2017 Tobacco use and exposure Smokeless tobacco non-user [facility] Start: 02-16-2024 End: 02-23-2024 Alcoholic beverage intake Current non-drinker of alcohol (finding) [facility] Start: 02-16-2024 End: 02-19-2024 History of Social function [facility] Start: 02-16-2024 End: 02-19-2024 Tobacco use panel [facility] National Score (1-10 0), lower number is lower risk 75 [facility] Start: 1950 [facility] Start: 07-03-2024 Sex Male (finding) [facility] Medical Equipment Procedure Code Equipment Code Equipment Origin al Text Equipment Identifier Dates GLENOSPHERE FDA Start: 12-23-2024 HUMERAL STEM FDA Start: 12-23-2024 HUMERAL SYSTEM FDA Start: 09-08-2025 LATERALIZED BASEPLATE FDA Sta rt: 12-23-2024 SCREW FDA Start: 12-23-2024 SHORT POST FDA Start: 12-23-2024 Goals Date Patient Goal Desired Activity /State Functional Status Date Assessment Result Facility 12-24-2024 Functional status Ambulates [facility] Work Phone: Mental Status Date Assessment Result Facility 12-24-2024 Cognitive function Level Of Cons ciousness Awake;Alert;Appropriate;Follow s Commands [facility] Work Phone: 12-24-2024 Cognitive function Voice/Name [facility] Work Phone: 08-17-2023 Cognitive function Voice/Name [facility] Work Phone: Clinical Notes 08-17-2006 to 12-24-2024 Note Date & Type Note Facility 12-24-2024 Discharge summary Note Date/Time December 24, 2024 11:59am [facility] Medical Records Department [address] [place] [address] Discharge Summary 12/24/24 1018 MR#: [id number] Acct: [id number] Name: MARIA E GUTHRIE Rep #:[id number] : 1950 74 From: Oneyda WAGGONER PCP: Dr. Matt Saul MD Status :ADM BAR Location: [place] [address] Providers Date of Admission: 12/23/24 Date of [...] IMPRESSION: Right shoulder reverse arthroplasty. Reading Location: [place] [address] D/C Instructions Discharge Activity: May Shower Weight [...] Dr. Matt Saul MD; EDILSON Diaz~ Signed [facility] Work Phone: 1(475) 423-495809-09-2025 Discharge summary [facility] Medical Records Department [address] [place] [address] Discharge Summary 12/24/24 1018 MR#: [id number] Acct: [id number] Name: MARIA E GUTHRIE Rep #:[id number] : 1950 74 From: Oneyda WAGGONER PCP: Dr. Matt Saul MD Status :ADM BAR Location: [place] [address] Providers Date of Admission: 12/23/24 Date of [...] IMPRESSION: Right shoulder reverse arthroplasty. Reading Location: [place] [address] D/C Instructions Discharge Activity: May Shower Weight [...] Dr. Matt Saul MD; EDILSON Diaz~ Signed [facility]09-09-2025 Progress note Author Major Carrillo [facility] Note Date/Time December 24, 2024 9:42am [facility] Medical Records Department [address] [place] [address] Progress Note - Hospitalist 12/24/24913 MR#: [id number] Acct: [id number] Name: MARIA E GUTHRIE Rep #:[id number] : 1950 74 From: Major mathews MD PCP: Dr. Matt Saul MD Status :ADM BAR Location: [place] [address] Subjective Subjective Doing well, pain is controlled [...] IMPRESSION: Right shoulder reverse arthroplasty. Reading Location: [place] [address] Physical Exam Narrative General: Alert, Oriented x3, [...] with questions Charges/Coding Visit Charges Inpatient E&M: 93044 Subs Hosp L2 12/24/24 0942 <Electronically signed by Major Carrillo MD> Cosigner Signature (if applicable): CC: ~ Signed ADDENDUM by Dr. Major Carrillo MD on 12/24/24 at 0942 Visit Charges Office Visits / Consults: 73964 OV L3 Est 20min 12/24/24 0942<Electronically signed by Major Carrillo MD> Cosigner Signature (if applicable): cc: ~* Signed [facility] Work Phone: 1(119) 210-983809-09-2025 [facility] Medical Records Department [address] [place] [address] Discharge Summary 12/24/24 1018 MR#: [id number] Acct: [id number] Name: MARIA E GUTHRIE Rep #: [id number] : 1950 74 From: Oneyda WAGGONER PCP: Dr. Matt Saul MD Status:ADM BAR Location: [address] Providers Date of Admission: 12/23/24 Date [...] 20 H, Creatinine 1.01 (more content not included)...[facility]09-09-2025 Progress note [facility] Medical Records Department [address] [place] [address] Progress Note - Hospitalist 12/24/24913 MR#: [id number] Acct: [id number] Name: MARIA E GUTHRIE Rep #:[id number] : 1950 74 From: Major mathews MD PCP: Dr. Matt Saul MD Status :ADM BAR Location: [place] [address] Subjective Subjective Doing well, pain is controlled [...] IMPRESSION: Right shoulder reverse arthroplasty. Reading Location: [place] [address] Physical Exam Narrative General: Alert, Oriented x3, [...] with questions Charges/Coding Visit Charges Inpatient E&M: 13598 Subs Hosp L2 12/24/24 0942 Cosigner Signature (if applicable): CC: ~ Signed ADDENDUM by Dr. Major Carrillo MD on 12/24/24 at 0942 Visit Charges Office Visits / Consults: 88381 OV L3 Est 20min 12/24/24 0942 Cosigner Signature (if applicable): cc: ~* Signed [facility]09-08-2025 Consult note Author Hansel Sultana [facility] Note Date/Time December 23, 2024 8:16pm [facility] Medical Records Department [address] [place] [address] Consultation - Hospitalist 12/23/24 1608 MR#: [id number] Acct: [id number] Name: MARIA E GUTHRIE Rep #:[id number] : 1950 74 From: Hansel foreman DO PCP: Dr. Matt Saul MD Status :ADM BAR Location: [place] [address] Assessment & Plan Assessment/Plan (1) Right rotator cuff tear arthropathy: PLAN: Plan Patient is a 74-year-old male who presented to [facility] on 12/23/2024 for planned right shoulder [...] is a 74 M who presented to [facility] on 12/23/2024 for planned orthopedic procedure. [...] No other acute concerns at this time. [facility] Medical History Wears hearing aid Wears glasses Wears partial dentures History of steroid therapy Arthritis Dietary restriction Non-smoker History of echocardiogram History of stress test Cardiology follow-up encounter Diabetes Myocardial infarct Hypertension Osteoarthritis Gout Atherosclerosis of coronary artery of quileute heart without angina pectoris Hyperlipidemia Home Medications [...] Type Severity Reaction Status Date / Time Zvepvoz-MFW-CdU Reductase AdvReac Mild myalgias Verified 12/23/24 10:26 Inhibitor (Qaglqkv-Whj-Cka Reductase Inhibitor) Family History Brother CAD (coronary [...] IMPRESSION: Right shoulder reverse arthroplasty. Reading Location: [place] [address] Charges/Coding Visit Charges Inpatient E&M: 19398 Subs Hosp L2 12/23/242015 <Electronically signed by Hansel Sultana DO> Cosigner Signature (if applicable): CC: Dr. Matt Saul MD; Dr. Major Yi DO~ Signed [facility] Work Phone: 1(896) 671-418809-08-2025 Consult note [facility] Medical Records Department [address] [place] [address] Consultation - Hospitalist 12/23/24 1608 MR#: [id number] Acct: [id number] Name: MARIA E GUTHRIE Rep #:[id number] : 1950 74 From: Hansel foreman DO PCP: Dr. Matt Saul MD Status :ADM BAR Location: [place] [address] Assessment & Plan Assessment/Plan (1) Right rotator cuff tear arthropathy: PLAN: Plan Patient is a 74-year-old male who presented to [facility] on 12/23/2024 for planned right shoulder [...] is a 74 M who presented to [facility] on 12/23/2024 for planned orthopedic procedure. [...] No other acute concerns at this time. [facility] Medical History Wears hearing aid Wears glasses Wears partial dentures History of steroid therapy Arthritis Dietary restriction Non-smoker History of echocardiogram History of stress test Cardiology follow-up encounter Diabetes Myocardial infarct Hypertension Osteoarthritis Gout Atherosclerosis of coronary artery of quileute heart without angina pectoris Hyperlipidemia Home Medications [...] Type Severity Reaction Status Date / Time Awtscbh-LGA-XrW Reductase AdvReac Mild myalgias Verified 12/23/24 10:26 Inhibitor (Fqbjalm-Pri-Bhk Reductase Inhibitor) Family History Brother CAD (coronary [...] IMPRESSION: Right shoulder reverse arthroplasty. Reading Location: [place] [address] Charges/Coding Visit Charges Inpatient E&M: 27360 Subs Hosp L2 12/23/242015 Cosigner Signature (if applicable): CC: Dr. Matt Saul MD; Dr. Major Yi, DO~ Signed [facility]09-08-2025 Consult note Author Osei Lubin [facility] Note Date/Time December 23, 2024 2:33pm [facility] Medical Records Department [address] [place] [address] Anesthesia Postop Eval II 12/23/24 1433 MR#: [id number] Acct: [id number] Name: MARIA E GUTHRIE Rep #:[id number] : 1950 74 From: Osei Choudhury PCP: Dr. Matt Saul MD Status :ADM BAR Y Race: C Location: [place] [address] Anesthesia Postop Eval I Sum Postop Eval Completion status Anesthesia document: Postop Eval 1 completed: Yes Anesthesia Postop Eval I Summary Anesthesia Postop Eval I Summary: Anesthesia Postop Eval I: Assessment Summary Airway patent Yes 12/23/24 13:32 PLASTIC BATTERY ASSEMBLER.CSIR Spontaneous unlabored Yes 12/23/24 13:32 PLASTIC BATTERY ASSEMBLER.CSIR respirations Mental status nausea No 12/23/24 13:32 PLASTIC BATTERY ASSEMBLER.CSIR Vomiting No 12/23/24 13:32 PLASTIC BATTERY ASSEMBLER.CSIR Anesthesia Postop Eval I: Fluid Summary Crystalloid volume administer 1,300 12/23/24 13:32 PLASTIC BATTERY ASSEMBLER.CSIR (ml) Colloids volume administered ( ml) Blood Product volume administered (ml) Total IV fluid infused 1,300 12/23/24 13:32 PLASTIC BATTERY ASSEMBLER.CSIR Anesthesia Postop Eval I: Summary Notes Anesthesia Complication No 12/23/24 13:32 PLASTIC BATTERY ASSEMBLER.CSIR Anesthesia Complication Comment: Post-operative progress note Anesthesia: Postop Eval II Evaluation Mental status: Awake and Calm Pain Level: 1 nausea: No Vomiting: No Complications Anesthesia Complication: No 12/23/24 1433 <Electronically signed by Osei Lubin MD> Date _ Osei Lubin MD Cosigner Signature: Date CC: ~ Signed [facility] Work Phone: 1(623) 769-343409-08-2025 Consult note Author Priscilla Willard [facility] Note Date/Time December 23, 2024 1:33pm [facility] Medical Records Department [address] [place] [address] Anesthesia Postop Eval I 12/23/24 1332 MR#: [id number] Acct: [id number] Name: MARIA E GUTHRIE Rep #:[id number] : 1950 74 From: Priscilla Willard CRNA PCP: Dr. Matt Saul MD Status :REG SDC Y Race: C Location: [place] [address] Anesthesia: Postop Eval I Current Vital Signs [...] Priscilla cruz CRNA> Date _ Priscilla Willard PLASTIC BATTERY ASSEMBLER Cosigner Signature: Date CC: ~ Signed [facility] Work Phone: 1(190) 660-475609-08-2025 Evaluation note* Diagnosis Onset Date Resolution Status Admit Date Right rotator cuff tear arthropathy acute December 23 1:06pm Status post reverse total arthroplasty of right shoulder acute S epte2024 1:06pm [facility] Work Phone: 1(953) 168-724709-08-2025 Evaluation note* Diagnosis Onset Date Resolution Status Admit Date Right rotator cuff tear arthropathy inactive Maureen 8th, 2 025 1:06pm Status post reverse total arthroplasty of right shoulder inactive December 23 1:06pm [facility] Work Phone: 1(610) 962-229009-08-2025 Consult note [facility] Medical Records Department [address] [place] [address] Anesthesia Postop Eval II 12/23/24 1433 MR#: [id number] Acct: [id number] Name: MARIA E GUTHRIE Rep #:[id number] : 1950 74 From: Osei Choudhury PCP: Dr. Matt Salu MD Status :ADM BAR Y Race: C Location: [address] Anesthesia Postop Eval I Sum Postop Eval Completion status Anesthesia document: Postop Eval 1 completed: Yes Anesthesia Postop Eval I Summary Anesthesia Postop Eval I Summary: Anesthesia Postop Eval I: Assessment Summary Airway patent Yes 12/23/24 13:32 PLASTIC BATTERY ASSEMBLER.CSIR Spontaneous unlabored Yes 12/23/24 13:32 PLASTIC BATTERY ASSEMBLER.CSIR respirations Mental status nausea No 12/23/24 13:32 PLASTIC BATTERY ASSEMBLER.CSIR Vomiting No 12/23/24 13:32 PLASTIC BATTERY ASSEMBLER.CSIR Anesthesia Postop Eval I: Fluid Summary Crystalloid volume administer 1,300 12/23/24 13:32 PLASTIC BATTERY ASSEMBLER.CSIR (ml) Colloids volume administered ( ml) Blood Product volume administered (ml) Total IV fluid infused 1,300 12/23/24 13:32 PLASTIC BATTERY ASSEMBLER.CSIR Anesthesia Postop Eval I: Summary Notes Anesthesia Complication No 12/23/24 13:32 PLASTIC BATTERY ASSEMBLER.CSIR Anesthesia Complication Comment: Post-operative progress note Anesthesia: Postop Eval II Evaluation Mental status: Awake and Calm Pain Level: 1 nausea: No Vomiting: No Complications Anesthesia Complication: No 12/23/24 1433 MD> Date _ Osei Lubin MD Cosigner Signature: Date CC: ~ Signed [facility]09-08-2025 Radiology Diagnostic study note [facility] Imaging Services [address] [place] [address] Shoulder min 2 Views MR#: [id number] Acct: [id number] Name: MARIA E GUTHRIE Rep #: [id number] : 1950 M 74 From: Zhou Suárez MD PCP: Dr. Matt Saul MD Status: REG [facility] Study:Shoulder min 2 Views Date of Exam: 12/23/24 Exam# [id number] Ordering Dr: Major Yi DO PROCEDURE: SHOULDER [...] IMPRESSION: Right shoulder reverse arthroplasty. Reading Location: [place] [address] CC: Dr. Matt Saul MD; Dr. Major Yi DO ~ Annual Giving Director: Signed [facility]09-08-2025 Consult note [facility] Medical Records Department [address] [place] [address] Anesthesia Postop Eval I 12/23/24 1332 MR#: [id number] Acct: [id number] Name: MARIA E GUTHRIE Rep #:[id number] : 1950 74 From: Priscilla Willard CRNA PCP: Dr. Matt Saul MD Status :[facility] Y Race: C Location: [place] [address] Anesthesia: Postop Eval I Current Vital Signs Temperature: 97 F Pulse Rate: 89 Blood Pressure: 145/87 Respiratory Rate: 18 Pulse Ox: 93 Assessment Airway patent: Yes Spontaneous unlabored respirations: Yes nausea: No Vomiting: No Anesthesia Complication: No Fluid Hydration Crystalloid volume administer (ml): 1,300 Total IV fluid infused: 1,300 Progress Note Anesthesia document: Postop Eval 1 completed: Yes 12/23/24 1333 a PLASTIC BATTERY ASSEMBLER> Date _ Priscilla Willard PLASTIC BATTERY ASSEMBLER Cosigner Signature: Date CC: ~ Signed [facility]09-08-2025 Procedure note [facility] Medical Records Department [address] [facility] [place] [address] Operative Report 12/23/24 1322 MR#: [id number] Acct: [id number] Name: MARIA E GUTHRIE Rep #:[id number] : 1950 74 From: Major lake DO PCP: Dr. Matt Saul MD Status :[facility] Location: [place] [address] Operative Report (Standard) Operative Information Date of Procedure: 12/23/24 Pre-Operative Diagnosis: Right shoulder rotator cuff tear arthropathy Post-Operative Diagnosis: Right shoulder rotator cuff tear arthropathy Surgery/Procedure Performed: Right reverse total shoulder arthroplasty bit bender: Yes Senior Project Controls Specialist: Oneyda Solano Tasks completed by first front ventilator: Opening & closing, Implanting device, Hemostasis: Electrocautery [...] No Description of surgery: Patient arrived to [facility] morning of the procedure and was [...] positioned in the beachchair position. A well-padded screwhead polisher was applied. The nonoperative extremity was placed [...] appropriate depth with good press-fit purchase. A Craig was used to confirm depth. Cortical screws [...] operative suite. He was [place] the [place] and subsequently to PACU in stable condition. Need for skilled occupational therapy assistant: Oneyda Solano PA-C was critical to the outcome of thecase. During the course of the procedure the physician occupational therapy assistant played a vitalrole. Her intimate knowledge [...] Saul MD; Dr. Major Yi, DO~ Signed [facility]09-08-2025 Consult note Author Osei Lubin [facility] Note Date/Time December 23, 2024 10:57am [facility] Medical Records Department [address] [place] [address] Pre-Anesthesia Evaluation 12/23/24 1052 MR#: [id number] Acct: [id number] Name: MARIA E GUTHRIE Rep #:[id number] : 1950 74 From: Osei Choudhury PCP: Dr. Matt Saul MD Status :REG [facility] Y Race: C Location: [place] [address] ASA Classification* ASA Classification ASA Classification: 2 [...] SHOULDER ARTHROPLASTY Anesthesia History Anesthesia History - florist: Anesthesia History - florist Hx Hospitalization No 12/03/24 10:59 Any Problems [...] take am of surgery PONV PONV - florist: PONV - florist Female No 12/03/24 10:59 HX of Motion [...] 12/23/24 10:31 Respiratory Assessment Respiratory Assessment - florist: Respiratory Tract Infection Hx - florist Hx Respiratory Tract Infection No 12/03/24 10:59 STOP Sleep Apnea STOP Sleep Apnea - florist: STOP Sleep Apnea - florist Hx Hypertension Yes: CONTROLLED WITH MED 12/03/24 [...] Tobacco Use History Tobacco Use History - florist: Tobacco Use History - florist Tobacco Use Smoking Status Never smoker 12/03/24 10:59 Hx Tobacco Use No 12/03/24 10:59 Years Smoking Packs Smoked per Day Smoking Cessation Date was within the last 15 years Hx Smoking Cessation Date Hx Smoking Cessation Counseling Hematologic Medial History Hematologic Hx - florist: 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 Hx of Blood Transfusion No 12/03/24 10:59 [...] confused, unrespo /Reproduction History /Reproductive History - florist: /Reproductive Hx- florist Hx Now No 12/03/24 10:59 Gestational Age [...] Osteoarthritis Gout Atherosclerosis of coronary artery of quile[place] heart without angina pectoris Hyperlipidemia Home Medications [...] Type Severity Reaction Status Date / Time Zkzgror-DSB-KuS Reductase AdvReac Mild myalgias Verified 12/23/24 10:26 Inhibitor (Jkisfuj-Afj-Lwm Reductase Inhibitor) Family History Brother CAD (coronary [...] MD Cosigner Signature: Date CC: ~ Signed [facility] Work Phone: 1(917) 561-471909-08-2025 Consult note [facility] Medical Records Department [address] [place] [address] Pre-Anesthesia Evaluation 12/23/24 1052 MR#: [id number] Acct: [id number] Name: MARIA E GUTHRIE Rep #:[id number] : 1950 74 From: Osei Choudhury PCP: Dr. Matt Saul MD Status :REG SDC Y Race: C Location: [place] [address] ASA Classification* ASA Classification ASA Classification: 2 [...] SHOULDER ARTHROPLASTY Anesthesia History Anesthesia History - florist: Anesthesia History - florist Hx Hospitalization No 12/03/24 10:59 Any Problems [...] take am of surgery PONV PONV - florist: PONV - florist Female No 12/03/24 10:59 HX of Motion [...] 12/23/24 10:31 Respiratory Assessment Respiratory Assessment - florist: Respiratory Tract Infection Hx - florist Hx Respiratory Tract Infection No 12/03/24 10:59 STOP Sleep Apnea STOP Sleep Apnea - florist: STOP Sleep Apnea - florist Hx Hypertension Yes: CONTROLLED WITH MED 12/03/24 [...] Tobacco Use History Tobacco Use History - florist: Tobacco Use History - florist Tobacco Use Smoking Status Never smoker 12/03/24 10:59 Hx Tobacco Use No 12/03/24 10:59 Years Smoking Packs Smoked per Day Smoking Cessation Date was within the last 15 years Hx Smoking Cessation Date Hx Smoking Cessation Counseling Hematologic Medial History Hematologic Hx - florist: Hematologic 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 Hx of Blood Transfusion No 12/03/24 10:59 [...] confused, unrespo /Reproduction History /Reproductive History - florist: /Reproductive Hx- florist Hx Now No 12/03/24 10:59 Gestational Age [...] Osteoarthritis Gout Atherosclerosis of coronary artery of qu[place] heart without angina pectoris Hyperlipidemia Home Medications [...] Type Severity Reaction Status Date / Time Msiljku-IQG-NfE Reductase AdvReac Mild myalgias Verified 12/23/24 10:26 Inhibitor (Omreqdk-Ajt-Zsg Reductase Inhibitor) Family History Brother CAD (coronary [...] MD Cosigner Signature: Date CC: ~ Signed [facility]08-14-2025 Radiology Diagnostic study note [facility] Imaging Services [address] [place] [address] Extremity Upper without Contra MR#: [id number] Acct: [id number] Name: MARIA E GUTHRIE Rep #: [id number] : 1950 M 74 From: Sean Garcia MD PCP: Dr. Matt Saul MD Status: REG CLI Study:Extremity Upper without Contra Date of Exam: 11/26/24 Exam# [id number] Ordering Dr: Major Yi DO PROCEDURE: EXTREMITY [...] Saul MD; Dr. Major Yi DO ~ Annual Giving Director: Signed [facility]03-04-2025 Radiology Diagnostic study note [facility] Imaging Services [address] [place] [address] [id number] Ankle min 3 Views MR#: [id number] Acct: [id number] Name: MARIA E GUTHRIE Rep #: [id number] : 1950 M 74 From: Shannon Joshua MD PCP: Dr. Matt Saul MD Status: REG CLI Study:Ankle min 3 Views Date of Exam: Exam# [id number] Ordering Dr: Luna Saul MD EXAM: XR [...] evaluation with CT is recommended. Reading Location[facility] CC: Dr. Matt Saul MD ~ Annual Giving Director: Signed [facility]03-04-2025 Radiology Diagnostic study note [facility] Imaging Services [address] [place], [place] [address] Foot min 3 Views MR#: [id number] Acct: [id number] Name: MARIA E GUTHRIE Rep #: [id number] : 1950 M 74 From: Laurent Alva MD PCP: Dr. Matt Saul MD Status: REG CLI Study:Foot min 3 Views Date of Exam: 08/09 Exam# [id number] Ordering Dr: Luna Saul MD PROCEDURE: FOOT [...] suggestive of gout. Calcaneal spurs. Reading Location: [id number] CC: Dr. Matt Saul MD ~ Annual Giving Director: Signed [facility]12-19-2024 Evaluation note* Diagnosis Onset Date Resolution Status Admit Date Essential hypertension chronic De cember 2023 2:13pm History of coronary artery stent placement August 17, 2006 chronic April 04, 2 024 2:13pm Hyperlipidemia chronic March 172023 2:13pm [facility] Work Phone: 1(859) 870-686511-11-2024 History of Present illness Narrative* Maddie Bernstein APRN.DOUBLE END TRIMMER - 02/26/2024 1:00 PM EST FOLLOW UP VISIT - ENDOSCOPY Maria E Guthrie 1950 [id number] REFERRING PHYSICIAN: Matt Saul (Rashida) [address] [facility] [address] Maria E Guthrie is a patient I [...] as needed for worsening/no improvement. Maddie Bernstein APRN.DOUBLE END TRIMMER documented in this encounterLouis [facility]11-11-2024 NoteHNO ID: [id number] Author: MADDIE BERNSTEIN APRN.DOUBLE END TRIMMER Service: ? Author Type: Nurse Practitioner Type: Progress Notes Filed: 02/26/2024 13:03 Note Text: FOLLOW UP VISIT - ENDOSCOPY Maria E Guthrie 1950 [id number] REFERRING PHYSICIAN: Matt Saul (Rashida) [address] [place] [address] Maria E Guthrie is a patient I [...] as needed for worsening/no improvement. Maddie Bernstein APRN.[facility]11-04-2024 Note* Discharge Instr - Nursing - sEtelle Bird RN - 02/19/2024 12:17 PM EST The patient received a copy of Colonoscopy discharge instructions that contain information for how to contact the physician who performed the procedure and when to seek medical care. [facility]11-04-2024 Miscellaneous Notes* Discharge Instr - Nursing - Estelle Bird RN - 02/19/2024 12:17 PM EST The patient received a copy of Colonoscopy discharge instructions that contain information for how to contact the physician who performed the procedure and when to seek medical care. documented in this encounterLouis Stokes [facility] Center11-04-2024 NoteHNO ID: [id number] Author: ESTELLE BIRD RN Service: ? Author Type: Registered Nurse Type: Nursing Progress Note Filed: 02/19/2024 12:15 Note Text: Abdomen soft non-distended. Will continue to monitor.[facility] 02-19-2024 Nurse Note* Estelle Bird RN - 02/19/2024 12:00 PM EST Abdomen soft non-distended. Will continue to monitor. [facility]11-04-2024 Nurse Note* Estelle Bird RN - 02/19/2024 12:00 PM EST Abdomen soft non-distended. Will continue to monitor. documented in this encounterLouis Stokes Cleveland [facility] Center11-04-2024 History and physical note * [...] Last colonoscopy 06/[address] Park at [facility]. Sedation:Midazolam 5 mg IV, Fentanyl 100 [...] (FLONASE) 50 mcg/actuation nasal spray Use 1 [place] in the nose once daily. cyanocobalamin (VITAMIN [...] entered by the nurse and reviewed by va Nursing Notes: Francisca Spann RN 02/16/2024 2:03 [...] edited and updated as necessary. Maddie Bernstein APRN.DOUBLE END TRIMMER UPDATED HISTORY AND PHYSICAL EXAMINATION SERVICE DATE: 02/19/2024 SERVICE TIME: 10:53 AM SENSITIVE EXAMINATION CONSENT: The sensitive examination was discussed with the Patient or Patient's Authorized Business Reporter. Asapplicable, any other physician, advance practice provider, medical student, or other health professional student that will be observing or involved in the sensitive examination for educational or training purposes was discussed with the Patient or Authorized Business Reporter. The Patient or Authorized Business Reporter has agreed to proceed with the sensitive [...] DATE: February 19, 2024 TIME: 10:53 AM [facility]11-04-2024 History and physical note* Demetri [...] Last colonoscopy 06/[address] Park at [facility]. Sedation:Midazolam 5 mg IV, Fentanyl 100 [...] (FLONASE) 50 mcg/actuation nasal spray Use 1 [place] in the nose once daily. cyanocobalamin (VITAMIN [...] entered by the nurse and reviewed by va Nursing Notes: Francisca Spann RN 02/16/2024 2:03 [...] discussed with the Patient or Patient's Authorized Business Reporter. Asapplicable, any other physician, advance practice provider, medical student, or other health professional student that will be observing or involved in the sensitive examination for educational or training purposes was discussed with the Patient or Authorized Business Reporter. The Patient or Authorized Business Reporter has agreed to proceed with the sensitive [...] 2024 TIME: 10:53 AM documented in this encounterLouis Stokes [facility] Center11-01-2024 Telephone encounter Note * Telephone Encounter - Melanie Marcelino - 02/16/2024 2:34 PM EDT 02-19-2024 Colonoscopy concepción ASC Joyytejolly prep, nurse went over instructions yudy has direct number to contact for any questions or concerns., Instructed patient to arrive at 1045 in ASC [facility]11-01-2024 Miscellaneous Notes* Telephone Encounter - Melanie Marcelino - 02/16/2024 2:34 PM EDT 02-19-2024 Colonoscopy concepción ASC Joyytejolly prep, nurse went over instructions yudy has direct number to contact for any questions or concerns., Instructed patient to arrive at 1045 in ASC documented in this encounterLouis Stokes [facility] Center11-01-2024 Nurse Note* Francisca Spann, RN [...] N/A Last Colonoscopy: 07/10/2020 Francisca Spann RN [facility]11-01-2024 History of Present illness Narrative* Maddie Bernstein APRN.DOUBLE END TRIMMER - 02/16/2024 2:00 PM EDT HISTORY AND [...] Last colonoscopy 06/[address] Park at [facility]. Sedation:Midazolam 5 mg IV, Fentanyl 100 [...] (FLONASE) 50 mcg/actuation nasal spray Use 1 [place] in the nose once daily. cyanocobalamin (VITAMIN [...] entered by the nurse and reviewed by va Nursing Notes: Francisca Spann RN 02/16/2024 2:03 [...] necessary. Maddie Bernstein APRN.BALJIT documented in this encounterLouis Stokes [facility] Center11-01-2024 NoteHNO ID: [id number] Author: MADDIE BERNSTEIN APRN.CNP Service: ? Author [...] Last colonoscopy 06/[address] Park at [facility]. Sedation:Midazolam 5 mg IV, Fentanyl 100 [...] (FLONASE) 50 mcg/actuation nasal spray Use 1 [place] in the nose once daily. cyanocobalamin (VITAMIN [...] entered by the nurse and reviewed by va Nursing Notes: Francisca Spann RN 02/16/2024 2:03 [...] denies ulcers, denies vomiting, (more content not included)...[facility]11-01-2024 Nurse Note* Francisca Spann RN - 02/16/2024 [...] 07/10/2020 Francisca Spann RN documented in this encounterLouis Stokes [facility] Center05-02-2024 Discharge summary Author Jeo Joshua [facility] August 18, 2023 12:45am Note Date/Time August 17, 2023 9:52pm [facility] Medical Records Department [address] [facility] [address] [place] [address] Emergency Department Summary 08/17/23 MR#: [id number] Acct: [id number] Name: MARIA E GUTHRIE Rep #:[id number] : 1950 73 From: Joe Sgae PCP: Dr. Matt Saul MD Status :REG ER Location: ED HPI History of Present Illness Chief Complaint: Chest Pain Informant: patient Narrative Narrative: Intermittent chest pain initially started overnight twinges in his left chest. This evening it returned having intermittent symptoms. He had 1 stent placed [id number]. Diabetes hypertension hyperlipidemia. No cardiac dysrhythmia history. On baby aspirin. No cough. He had traveled yesterday 8-hour drive and return. Noticed leg swelling no leg cramping no dyspnea. Prior Similar Symptoms: No CVD Risk Factors: Positive for Hypertension, Diabetes and Hypercholesterolemia PE Risk Factors: Positive for [facility] Medical History (Updated 08/18/23 @ 00:[address] Joe Joshua DO) Atherosclerosis of coronary artery of [place] heart without angina pectoris Chest pain Coronary [...] DAILY 02/08/22 [History Last Taken Unknown] omega 7-sct-gia-fish oil 300 mg-1,000 mg capsule (Fish Oil) 2 cap PO BID 02/08/22 [History Last Taken Unknown] allopurinol 300 mg tablet 300 mg PO DAILY 02/08/23 [History Last Taken Unknown] hydrochlorothiazide 25 mg tablet 25 mg PO DAILY 02/08/23 [History Last Taken Unknown] Allergy/AdvReac Type Severity Reaction Status Date / Time Rkxyqmd-JEH-DnS Reductase AdvReac Mild myalgias Verified 08/17/23 21:04 Inhibitor [Cghemrz-Ilf-Hal Reductase Inhibitor] Family History Brother CAD (coronary [...] it in the room however on the scissors sharpener did not know any rhythm changes. Cardiac [...] clinician: N/A This note was generated with [employer] dictation software. It may contain incorrectwords, spelling, [...] 38.9 L Lymph % (Auto) 49.8 H [place] % (Auto) 10.1 H Eos % (Auto) [...] mg tablet 100 mg PO DAILY omega 2-edr-kjx-fish oil [Fish Oil] 300-1,000 mg capsule 2 [...] muscle); rotate sites [place] Primary Care Provider: Matt Saul Referrals: Matt [...] your Primary Care Provider. Call [facility] ([phone]) or report to the closest Emergency Room. Call 911 if necessary. 08/18/23 0045 <Electronically signed by Joe Sage> Cosigner Signature (if applicable): CC: Dr. Matt Saul MD ~ Signed [facility] Work Phone: [phone] Evaluation note* Diagnosis Onset Date Resolution Status Essential hypertension chron ic History of coronary artery stent placement August 17 chronic Hyperlipidemia chronic [facility] Work Phone: Evaluation note* Diagnosis Onset Date Resolution Status Influenza due to influenza virus, type A, human acute [facility] Work Phone: Evaluation note* Diagnosis History of colonic polyps- Primary Personal history of colonic polyps Screen for colon cancer Special screening for malignant neoplasms, colon documented in this encounter [facility] CenterEvalunemours foundation [facility]* Diagnosis History of colonic polyps Personal history of colonic polyps Screen for colon cancer Special screening for malignant neoplasms, colon documented in this encounter [facility] CenterEvalunem[facility] foundation note* Diagnosis History of colonic polyps- Primary Personal history of colonic polyps documented in this encounter [facility] noteNo assessment information availableWooMarietta Memorial Hospital Work Phone: Hospital Discharge instructions Additional Instructions Cardiac workup was negative. Potassium 3.1 orally replaced. Follow-up with your doctor. If symptoms recur and worsens, return to the ED for reevaluation.[facility] Work Phone: Hospital Discharge instructionsAdditional Instructions Date of Dis[facility]: [facility]24[facility]: Reason for referral (narrative)* Outpatient Procedure (Routine) - Authorized Specialty Diagnoses / Procedures Referred By Shauna ross Referred To Contact [facility] [place] Diagnoses History of colonic polyps Screen for colon cancer Procedures COLONOSCOPY SCREENING COLONOSCOPY FLX DX W/COLLJ SPEC WHEN Maddie Lozada APRN.CNP [address] [place] [address] [facility] Disease [address] [address] Referral ID Status Reason Start Date Expiration Date Visits Requested Visits Authorized [id number] Authorized Auto-Generat ed Referral 02/16/2024 02/15/2025 1 1 [facility] for referral (narrative)* Outpatient Procedure (Routine) - Closed Specialty Diagnoses / Procedures Referred By Shauna ross Referred To Contact [facility] [place] Diagnoses History of colonic polyps Screen for colon cancer Procedures COLONOSCOPY SCREENING COLONOSCOPY FLX DX W/COLLJ SPEC WHEN Maddie Lozada APRN.CNP [address] [place] [address] [facility] Disease [place] [id number] Referral ID Status Reason Start Date Expiration Date V isits Requested Visits Authorized [id number] Closed Auto-Generate d Referral 02/16/2024 02/15/2025 1 1 [facility] for referral (narrative)No reason for referral information availableWMount Carmel Health System Work Phone: Reason for visit Narrative* Outpatient Procedure (Routine) - Closed Specialty Diagnoses / Procedures Referred By Shauna ross Referred To Contact [facility] Diagnoses History of colonic polyps Screen for colon cancer Procedures COLONOSCOPY SCREENING COLONOSCOPY FLX DX W/COLLJ SPEC WHEN Maddie Lozada, JENNIFER.DOUBLE END TRIMMER [address] [place] [address] [facility] [place] [address] Referral ID Status Reason Start Date Expiration Date V isits Requested Visits Authorized [id number] Closed Auto-Generate d Referral 02/16/2024 02/15/2025 1 1 [facility] Chief Complaint and Reason for [...] Yes December 29, 2014 1:26pm Power of Physiotherapy Practice Manager Yes December 1:26pm Advance Directive Response Recorded Date/ Time Name of Medical Power of Physiotherapy Practice Manager darby feliciano n August 17, 2023 9:53pm Living Will Yes August 17, 2023 9: 53pm Power of Physiotherapy Practice Manager Yes August 17, 2023 9:53pm Advance Directive Response Recorded Date/ Time Living Will Yes December 29, 2014 2:26pm Power of Physiotherapy Practice Manager Yes December 2:26pm Advance Directive Response Recorded Date/ Time Do you have a Healthcare Power of Physiotherapy Practice Manager? Yes December 23, 2024 2:44pm Summary Purpose [...] Primary Care Provider Activ e Bill Murdock DEHYDROGENATION CONVERTER OPERATOR, DEHYDROGENATION CONVERTER OPERATOR-C Attending Provider Active Team Status: Active Member Role Status Dates Dr. Armond Saul MD Primary Care Provider Activ e Self Referred Attending Provider Active Team Status: Inactive Member Role Status Dates Dr. Armond Saul MD Primary Care Provider Activ e Bill Murdock DEHYDROGENATION CONVERTER OPERATOR, DEHYDROGENATION CONVERTER OPERATOR-C Attending Provider Active Team Status: Inactive Member Role Status Dates Dr. Armond Saul MD Primary Care Provider, Refe rring Provider Active Xiomara Renee DEHYDROGENATION CONVERTER OPERATOR, DEHYDROGENATION CONVERTER OPERATOR-C Attending Provider Active Team Status: Active Member [...] Dr. Joe Joshua DO Emergency Provider Active Corrections Specialist Relationship Specialty Start Date End Date Matt Saul MD [address] [facility] [place], [place] [address] PCP - General Family Medicine 06/30/20 Corrections Specialist Relationship Specialty Start Date End Date Matt Saul MD [address] [facility] [place], [place] [address] PCP - General Family Medicine 06/30/20 Corrections Specialist Relationship Specialty Start Date End Date Matt Saul MD [address] [facility] [place], [place] [address] PCP - General Family Medicine 06/30/20 Corrections Specialist Relationship Specialty Start Date End Date Matt Saul MD [address] [facility] [place] [id number] PCP - General Family Medicine 06/30/20 Team [...] or prosecute any alcohol or drug abuse patient.[facility] CenterIn the event this information is protected by the Federal Confidentiality of Alcohol and Drug Abuse Patient Records regulations: The Federal rules restrict any use of the information to criminally investigate or prosecute any alcohol or drug abuse patient.[facility] CenterIn the event this information is protected by the Federal Confidentiality of Alcohol and Drug Abuse Patient Records regulations: The Federal rules restrict any use of the information to criminally investigate or prosecute any alcohol or drug abuse patient.[facility] CenterIn the event this information is protected by the Federal Confidentiality of Alcohol and Drug Abuse Patient Records regulations: The Federal rules restrict any use of the information to criminally investigate or prosecute any alcohol or drug abuse patient.[facility] Reason for Visit (unrecogniz ed section and content) Reason Comments Consult colonoscopy Reason Comments Follow Up Review colonoscopy r esults. Reason Comments 02-19-2024 Colonscoopy (unrecognized sect ion and content) No Status Records FoundNo Status Records Found INFORMATION SOURCE (unrecogn ized section and content) DATE CREATED AUTHOR 03/19/2024 [facility] DATE CREATED AUTHOR AUTHOR'S ORGANIZ ATION 02/28/2025 [facility] FOR RECORDS PERTAINING TO PATIENTS WHO ARE [...] BE BASED ON THE PRIMARY CLINICAL RECORDS. [employer] provides no warranty or guarantee of the accuracy or completeness of information in this document.
[2025-04-11 11:50] VITALS: BP 158/95; PULSE 58; RESP 16; TEMP 36.1; O2SAT 98
[2025-04-11] MEDS: Ceftriaxone 2 GM in 0.9% Normal Saline (50mL MB+) 50 ML IV (11:53)
[2025-04-11 12:49] VITALS: BP 127/74; PULSE 63; RESP 16; TEMP 35.9; O2SAT 100
== END 2025-04-11 23:59 | disposition home or self-care (01) ==
LOC: MEDOUTP 11:16
PROVIDERS: PCP Family Medicine; Referring Provider Internal Medicine Infectious Disease; Visit Provider Internal Medicine Infectious Disease
DX: Z96.611 Presence of right artificial shoulder joint (principal)
CPT/HCPCS: 96365; A4216; J0696

== ENCOUNTER 2025-04-12 13:00 | Outpatient (CLI) | payer MEDICARE, OTHER, SELFPAY ==
--- OUTSIDE RECORDS SUMMARY | 2025-04-12 13:03 | XMS RPT_ITS | CCD ---
Author Organization [facility] Care Team Providers Care Last Remodeler Repairer Name Role Phone FERMIN Blunt, Bailey Keller Unavailable Georgette Oliva Unavailable Unavailable Georgette Tabor Unavailable Unavailable Dr. Armnod Saul Primary Care Provider [phone] Dr. Armond Saul Referring Provider Dr. Nathan Purcell Attending Provider [phone] Doyle Sandoval Attending Provider [phone] Collette CHIEF CATALYST OPERATOR, CHIEF CATALYST OPERATOR-Luna Grant Attending Provider Dr. Armond Saul Primary Care Provider [phone] Dr. Armond Saul Referring Provider Víctor CHIEF CATALYST OPERATOR, CHIEF CATALYST OPERATOR-Luna Solano Attending Provider Dr. Nathan Purcell Attending Provider [phone] Nathan Purcell Referring Provider [phone] Nathan Purcell Other Provider Collette CHIEF CATALYST OPERATOR, KHAI-Luna Grant Attending Provider Dr. Matt Saul Primary Care Provider Dr. Matt Saul Referring Provider [phone] EDILSON Driscoll Attending Provider Matt Saul MD [...] Kg LAZO, Dr. Farley Attending Provider [phone] Kg LAZO, Dr. Farley Primary Care Provider [...] MD Attending Physician Oneyda Spring Attending Physician [phone] Oneyda Spring Referring Provider Yang Romero Attending Unavailable Douglasgregory, Matt Referring Unavailable [facility] Primary Care Unavailable Spittle, Major Attending Unavailable Spittle, Major Referring Unavailable Spittle, Major Admitting Unavailable [facility] Primary Care Unavailable Kotsonis, Major F Consulting Unavailable Spittle, Major Referring Unavailable Spittle, Major Attending [facility]available [facility] Unavailable Spittle, Major Referring Unavailable Spittle, Major Attending Unavailable [facility] Care Unavailable Oneyda Solano Attending Unavailable Oneyda Solano Referring [facility]available [facility] Unavailable [facility] Primary Care Unavailable Matt Saul Attending Unavailable [facility] Referring Unavailable [facility], Matt Attending Unavailable [facility] Primary Care Unavailable Spittle, Major Referring Unavailable Seven Grey Attending Unavailable [facility] Primary Care Unavailable Spittle, Major Referring Unavailable Hansel Sultana Attending Unavailable Spittle, Major Admitting Unavailable Hansel Sultana Consulting Unavailable [facility] Care Unavailable Spittle, Major Consulting Unavailable Kotsonis, Major F Consulting Unavailable Kotsonis, Major F Attending Unavailable Nathan Purcell Attending Unavailable [facility] Care Unavailable [facility] Referring Unavailable Allergies Allergy Classification Reported Allergen(s) Allergy Type Date of Onset Reaction(s) Facility (3 sources) atorvastatin drug allergy 5 myalgia [facility] Work Phone: (3 sources) simvastatin drug allergy 3 myalgias [facility] Work Phone: (3 sources) CRESTOR, PRAVACHOL drug allergy 3 myalgias [facility] Work Phone: (7 sources) Knwtwgm-Xiu-Ujw Reductase Inhibitor Propensity to adverse reactions 2 myalgias [facility] Comment on above: Lipitor, Crestor, Zo cor (5 sources) Simvastatin; Translations: [SIMVASTATIN] Drug Allergy 7 Intolerance [facility] Work Phone: (1 source) OTHER; Translations: [OTHER] Propensity to adverse reactions (disorder) 7 [facility] Repository (1 source) Wreouti-Cfx-Uyt Reductase Inhibitor Drug allergy (disorder) [address] [facility] Repository Medications Current Medications Medication Drug Class(es) [...] TABS One tablet by mouth daily ASPIRIN [id number] Shruthi Fajardo RN Start: 06-11-2012 take 1 tablet by keyona th once daily at mealtime Aspirin 81 mg Tab Indications: Coronary atherosclerosis of unspecified type of vessel, swinomish or graft Take 1 tablet by mouth once daily. Take with food. 06/11/2012 Active cholecalciferol 0.025 mg ora l tablet (14 sources) Vitamin D Start: 01-21-2020 take 1 tablet by keyona th once daily Start: 01-21-2020 take 2000 [IU] by mo [facility] once daily Cholecalciferol (Vitamin D3) Active 2000 [...] (FLONASE) 50 mcg/actuation nasal spray Use 1 [place] in the nose once daily. 05/04/2023 Active [...] tablet by mouth twice daily METOPROLOL TARTRATE [id number] Mari Reyes RN oxyCODONE hydrochloride 5 mg oral tablet (2 sources) Opioid Agonist Start: 12-24-2024 take 5-10 mg by mouth every four to six hours as needed for pain polyethylene glycol 3350 [id number] mg / potassium chloride 2970 mg / sodium bicarbonate 6740 mg / sodium chloride 5860 mg / sodium sulfate 20169 mg powder for oral solution (1 source) [...] One tablet by mouth daily CLOPIDOGREL BISULFATE [id number] Demetri Patrick MD [place] 0-Pex-Odd-Fish Oil (7 sources) Start: 02-08-2022 End: 04-04-2024 [place] 3-Xwn-Zdn-Fish Oil (Fish Oil) 300-1,000 mg capsule Discontinued 2 NMA PO TWICE A DAY February 08, 2022 12:00am April 04, 2024 3:20pm Start: 02-08-2022 take 300-1000 mg by mouth twice daily [place] 7-Hmy-Vjc-Fish Oil (Fish Oil) 300-1,000 mg capsule Active 2 CAP PO TWICE A DAY February 08, 2022 12:00am Start: 02-08-2022 take 300-1000 mg by mouth once daily [place] 6-Deb-Kml-Fish Oil (Fish Oil) 300-1,000 mg capsule Active [...] by mouth daily [place]MEGA-3 FATTY ACIDS CAPS [id number] Demetri Patrick MD Start: 06-10-2013 End: 03-31-2015 take 1 tablet by mouth once daily FISH OIL CAPS One tablet by mouth daily OMEGA-3 FATTY ACIDS CAPS [id number] Demetri Patrick MD Start: 03-21-2013 End: 03-25-2013 take 1 capsule by mouth once daily FISH OIL CAPS One capsule by mouth daily OMEGA-3 FATTY ACIDS CAPS [id number] Demetri Patrick MD Start: 03-21-2013 take 1 capsule by mo [facility] once daily FISH OIL CAPS One capsule by mouth daily OMEGA-3 FATTY ACIDS CAPS [id number] Shruthi Fajardo RN FLUoxetine 10 mg oral capsule (6 sources) Serotonin Reuptake Inhibitor Start: 03-21-2013 End: 03-25-2013 take 1 tablet by mouth once daily PROZAC 10 MG CAPS One tablet by mouth daily FLUOXETINE HCL [id number] Demetri Patrick MD Start: 03-21-2013 End: 03-25-2013 take 1 tablet by mouth once daily PROZAC 10 MG CAPS One tablet by mouth daily FLUOXETINE HCL [id number] Demetri Patrick MD gemfibrozil 600 mg oral [...] BY PHYSICIAN FOR PROCEDURAL SEDATION ONLY, Intraprocedure [place]-3 Fatty Acids (3 sources) Start: 06-09-2013 End: 05-11-2017 take 300 mg by mouth once daily [place]-3 Fatty Acids Discontinued 300 MG PO DAILY June 09, 2013 1:00am May 11, 2017 5:09pm Start: 06-09-2013 End: 05-11-2017 take 300 mg by mouth once daily [place]-3 Fatty Acids Discontinued 300 MG PO DAILY June 09, 2013 12:00am May 11, 2017 4:09pm [place]-3 Fatty Acids 300 MG capsule (4 sources) Start: 06-09-2013 End: 05-11-2017 take 1 capsule by mouth once daily [place]-3 Fatty Acids 300 MG capsule Discontinued 300 [...] myocardial infarction; Translations: [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 Physical Therapy [facility] [address] [place] [address] / REHABILITATION SERVICES INITIAL EVALUATION MR#: [id number] Acct: [id number] Name: MARIA E GUTHRIE Rep #: [id number] : 1950 74 From: Cesar Holloway DPT [...] to be FAXED BACK to us at [phone] for Medicare purposes. For Medicare only, by signing this I certify the plan of care. Please let me know if there are questions or concerns regarding this plan of care. Physician Signature: Date:__ 01/07/25 1201 CC: Dr. Matt Saul MD; EDILSON Diaz CLS Signed Normal [facility] Microalb:Creat Ratio,Random URon 01-06-2025 Creatinine [Mass/Vol] 68.50 mg/dL Normal 39.00-259.[address] [facility] Comment on above: Order Comment: Order Date: 01/06/25 Order Info: [id number] - MIALB Performed By: #### L 502.0250 #### [facility] Laboratory [address] [place], [place], [address] MALB:CREAT 322.6 mg/g CRE High <30 mg/g CRE [facility] Comment on above: Order Comment: Order Date: 01/06/25 Order Info: [id number] - MIALB Performed By: #### L 502.0250 #### [facility] [address] [place], [address] MICROALBUMIN,UR 221.0 mg/L Normal <20 mg/L [facility] Comment on above: Order Comment: Order Date: 01/06/25 Order Info: [id number] - MIALB Performed By: #### L 502.0250 #### [facility] [address] [place], [address] Random urine creatinine collin urement (mass/volume)Ordered By: Matt Saul on 01-06-2025 Creatinine Unsp time (U) [Mass/Vol] 68.50 mg/dL 39.00-259.[address] [facility] Urine albumin measurement wi detection limit of 20 mg/L or less (mass/volume)Ordered By: Matt Saul on 01-06-2025 Albumin DL <= 20 mg/L (U) [Mass/Vol] 221.0 mg/L <20 mg/L [facility] Anion gap in Serum or Plasma Ordered By: Major Yi on 12-24-2024 Anion gap [Moles/Vol] 15 mmol/L - [facility] BUN/creatinine ratioOrdered By: Major Yi on 12-24-2024 Urea nitrogen/Creatinine [Mass ratio] 19.8 mg/mg - [facility] Basic Metabolic Profile (BMP )on 12-24-2024 BUN/CRE 19.8 RATIO Normal 02-[address] [facility] Comment on above: Performed By: #### L 500.2500, L100.0500 ####[facility] [address] [place], [address] Calcium [Mass/Vol] 9.2 mg/dL Normal 7.6-11.0 [facility] Comment on above: Performed By: #### L 500.2500, L100.0500 ####[facility] [address] [place], [address] Chloride [Moles/Vol] 100 mmol/L Normal 98-108 [facility] Comment on above: Performed By: #### L 500.2500, L100.0500 ####[facility] [address] [place], [address] CO2 [Moles/Vol] 19.6 mmol/L Low 21.0-32.[address] [facility] Comment on above: Performed By: #### L 500.2500, L100.0500 ####[facility] [address] [place], [address] Creatinine [Mass/Vol] 1.01 mg/dL Normal 0.70-1.20 [facility] Comment on above: Performed By: #### L 500.2500, L100.0500 ####[facility] [address] [place], [address] ECRCL 68.29 ml/min Normal 50-[address] [facility] Comment on above: Performed By: #### L 500.2500, L100.0500 ####[facility] [address] [place], [address] GAP 15 Normal 5-[address] [facility] Comment on above: Performed By: #### L 500.2500, L100.0500 ####[facility] [address] [place], [address] GFR/1.73 sq M.predicted among non-blacks MDRD (S/P/Bld) [Vol rate/Area] 77 mL/min/{1.73_m2} Normal >[address] [facility] Comment on above: Result Comment: mL/m in/1.73m2 CKD-EPI Creatinine Equation (2020) Performed By: #### L 500.2500, L100.0500 ####[facility] [address] [place], [address] Glucose [Mass/Vol] 175 mg/dL High 70-99 [facility] Comment on above: Performed By: #### L 500.2500, L100.0500 ####[facility] [address] [place], [address] Potassium [Moles/Vol] 4.4 mmol/L Normal 3.3-5.1 [facility] Comment on above: Performed By: #### L 500.2500, L100.0500 ####[facility] [address] [place], [address] Sodium [Moles/Vol] 135 mmol/L Normal 133-145 [facility] Comment on above: Performed By: #### L 500.2500, L100.0500 ####[facility] [address] [place], [address] Urea nitrogen [Mass/Vol] 20 mg/dL High 4-[address] [facility] Comment on above: Performed By: #### L 500.2500, L100.0500 ####[facility] [address] [place], [address] Bedside Glucoseon 12-24-2024 FINGERSTICK GLU 306 mg/dL High 74-[address] [facility] Comment on above: Result Comment: SUSAN GEMENT OF PATIENT CARE PER NURSING PROTOCOL Performed By: #### L 501.080 #### [facility] [address] [place], [address] FINGERSTICK GLU 188 mg/dL High 74-[address] [facility] Comment on above: Result Comment: SUSAN GEMENT OF PATIENT CARE PER NURSING PROTOCOL Performed By: #### L 501.080 #### [facility] [address] [place], [address] CBC-Complete Blood Cnt No Di ffon 12-24-2024 Erythrocyte distribution width (RBC) [Ratio] 13.4 % Normal 11.6-14.[address] [facility] Comment on above: Performed By: #### L 500.2500, L100.0500 #### [facility] [address] [place], [address] Hematocrit (Bld) [Volume fraction] 39.7 % Low 40-[address] [facility] Comment on above: Performed By: #### L 500.2500, L100.0500 #### [facility] [address] [place], [address] Hemoglobin (Bld) [Mass/Vol] 13.5 g/dL Normal 13.0-16.[address] [facility] Comment on above: Performed By: #### L 500.2500, L100.0500 #### [facility] [address] [place], [address] MCH (RBC) [Entitic mass] 29.6 pg Normal 27.0-32.[address] [facility] Comment on above: Performed By: #### L 500.2500, L100.0500 #### [facility] [address] [place], [address] MCHC (RBC) [Mass/Vol] 34.0 g/dL Normal 32-36 [facility] Comment on above: Performed By: #### L 500.2500, L100.0500 #### [facility] [address] [place], [address] MCV (RBC) [Entitic vol] 87.1 fL Normal 80-94 [facility] Comment on above: Performed By: #### L 500.2500, L100.0500 #### [facility] [address] [place], [address] Platelet mean volume (Bld) [Entitic vol] 11.7 fL Normal 6.2-12.[address] [facility] Comment on above: Performed By: #### L 500.2500, L100.0500 #### [facility] [address] [place], [address] Platelets (Bld) [#/Vol] 174 10*3/uL Normal 150-[address] [facility] Comment on above: Performed By: #### L 500.2500, L100.0500 #### [facility] [address] [place], [address] RBC (Bld) [#/Vol] 4.56 10*6/uL Low 4.6-6.2 [facility] Comment on above: Performed By: #### L 500.2500, L100.0500 #### [facility] [address] [place], [address] RDW SD 41.7 fl Normal 35.1-43.[address] [facility] Comment on above: Performed By: #### L 500.2500, L100.0500 #### [facility] [address] [place], [address] WBC (Bld) [#/Vol] 10.6 10*3/uL Normal 4.4-11.0 [facility] Comment on above: Performed By: #### L 500.2500, L100.0500 #### [facility] [address] [place], [address] Carbon dioxide, total [Moles /volume] in Central venous bloodOrdered By: Major Yi on 12-24-2024 CO2 [Moles/Vol] 19.6 mmol/L Low 21.0-32.[address] [facility] Chloride assayOrdered By: Yumiko Yi on 12-24-2024 Chloride [Moles/Vol] 100 mmol/L 98-108 [facility] Erythrocyte distribution wid th ratioOrdered By: Major Yi on 12-24-2024 Erythrocyte distribution width (RBC) [Ratio] 13.4 % 11.6-14.[address] [facility] Erythrocyte distribution wid th standard deviationOrdered By: Major Yi on 12-24-2024 Erythrocyte distribution width (RBC) [Ratio] 41.7 fl 35.1-43.[address] [facility] Glomerular filtration rate ( GFR) estimation/1.73 sq m using serum, plasma, or whole bOrdered By: Major Yi on 12-24-2024 GFR/1.73 sq M.predicted among non-blacks MDRD (S/P/Bld) [Vol rate/Area] 77 mL/min/{1.73_m2} >[address] [facility] Comment on above: mL/min/1.73m2 CKD-EP I Creatinine Equation (2020) [facility] deOrdered By: Major Yi on 12-24-2024 Glucose [Mass/Vol] 306 mg/dL High 74-106 [facility] Comment on above: MANAGEMENT OF PATIEN T CARE PER NURSING PROTOCOL Hematocrit Auto (Bld) [Volum e fraction]Ordered By: Major Yi on 12-24-2024 Hematocrit (Bld) [Volume fraction] 39.7 % Low 40-[address] [facility] Hemoglobin measurementOrdere d By: Major Yi on 12-24-2024 Hemoglobin (Bld) [Mass/Vol] 13.5 g/dL 13.0-16.[address] [facility] MCV (mean corpuscular volume ) determinationOrdered By: Major Yi on 12-24-2024 MCV (RBC) [Entitic vol] 87.1 fL 80-94 [facility] Mean corpuscular hemoglobin (MCH) determinationOrdered By: Major Yi on 12-24-2024 MCH (RBC) [Entitic mass] 29.6 pg 27.0-32.[address] [facility] Mean corpuscular hemoglobin concentration (MCHC) determinationOrdered By: Major Yi on 12-24-2024 MCHC (RBC) [Mass/Vol] 34.0 g/dL 32-36 [facility] Mean platelet volume determi nationOrdered By: Major Yi on 12-24-2024 Platelet mean volume (Bld) [Entitic vol] 11.7 fL 6.2-12.[address] [facility] Platelet countOrdered By: Yumiko Yi on 12-24-2024 Platelets (Bld) [#/Vol] 174 10*3/uL 150-[address] [facility] Potassium measurement (mass/ volume)Ordered By: Major Yi on 12-24-2024 Potassium (Unsp spec) [Mass/Vol] 4.4 mmol/L 3.3-5.[address] [facility] RBC Auto (Bld) [#/Vol]Ordere d By: Major Yi on 12-24-2024 RBC (Bld) [#/Vol] 4.56 10*6/uL Low 4.6-6.2 [facility] Serum creatinine measurement (mass/volume)Ordered By: Major Yi on 12-24-2024 Creatinine [Mass/Vol] 1.01 mg/dL 0.70-1.20 [facility] Serum glucose measurement (m ass/volume)Ordered By: Major Yi on 12-24-2024 Glucose [Mass/Vol] 175 mg/dL High 70-99 [facility] Serum or plasma calcium collin urement (mass/volume)Ordered By: Major Yi on 12-24-2024 Calcium [Mass/Vol] 9.2 mg/dL 7.6-11.0 [facility] Serum or plasma urea nitroge n measurement (mass/volume)Ordered By: Major Yi on 12-24-2024 Urea nitrogen [Mass/Vol] 20 mg/dL High 4-[address] [facility] Sodium levelOrdered By: Moshe Yi on 12-24-2024 Sodium [Moles/Vol] 135 mmol/L 133-145 [facility] White blood cell (WBC) count Ordered By: Major Yi on 12-24-2024 WBC (Bld) [#/Vol] 10.6 10*3/uL 4.4-11.0 [facility] Bedside Glucoseon 12-23-2024 FINGERSTICK GLU 272 mg/dL High 74-[address] [facility] Comment on above: Result Comment: SUSAN GEMENT OF PATIENT CARE PER NURSING PROTOCOL Performed By: #### L 501.080 ####[facility] [address] [place], [address] FINGERSTICK GLU 166 mg/dL High 74-[address] [facility] Comment on above: Result Comment: SUSAN GEMENT OF PATIENT CARE PER NURSING PROTOCOL Performed By: #### L 501.080 ####[facility] [address] [place], [address] FINGERSTICK GLU 195 mg/dL High [facility] [facility] Comment on above: Result Comment: SUSAN GEMENT OF PATIENT CARE PER NURSING PROTOCOL Performed By: #### L 501.080 #### [facility] Laboratory [address] [place], [address] Consultation - Hospitaliston 12-23-2024 Consultation - Hospitalist [facility] Medical Records Department [address] [place] [address] Consultation - Hospitalist 12/23/24 1608 MR#: [id number] Acct: [id number] Name: MARIA E GUTHRIE Rep #: [id number] : 1950 74 From: Hansel Sultana DO PCP: Dr. Matt Saul MD Status:ADM BAR Location: [place] [address] Assessment Plan Assessment/Plan (1) Right rotator cuff tear arthropathy: PLAN: Plan Patient is a 74-year-old male who presented to [facility] on 12/23/2024 for planned right shoulder procedure. [...] 74 M who presented to [facility] on 12/23/2024 for planned orthopedic procedure. Medicine [...] No other acute concerns at this time. [facility] Medical History Wears hearing aid Wears glasses Wears partial dentures History of steroid therapy Arthritis Dietary restriction Non-smoker History of echocardiogram History of stress test Cardiology follow-up encounter Diabetes Myocardial infarct Hypertension Osteoarthritis Gout Atherosclerosis of coronary artery of sw[place] heart without angina pectoris Hyperlipidemia Home Medications [...] Type Severity Reaction Status Date / Time Fcrehcd-VGS-XjS Reductase AdvReac Mild myalgias Verified 12/23/24 10:26 Inhibitor (Rytplmb-Nyf-Ivh Reductase Inhibitor) Family History Brother CAD (coronary [...] and well nourished (more content not included)... [facility] MR/POSTOP.ANEon 12-23-2024 MR/POSTOP.[facility] Medical Records Department [address] [place] [address] Anesthesia Postop Eval I 12/23/24 1332 MR#: [id number] Acct: [id number] Name: MARIA E GUTHRIE Rep #: [id number] : 1950 74 From: Priscilla Willard CRNA PCP: Dr. Matt Saul MD Status:REG [facility] Y Race: C Location: [place] [address] Anesthesia: Postop Eval I Current Vital Signs Temperature: 97 F Pulse Rate: 89 Blood Pressure: 145/87 Respiratory Rate: 18 Pulse Ox: 93 Assessment Airway patent: Yes Spontaneous unlabored respirations: Yes nausea: No Vomiting: No Anesthesia Complication: No Fluid Hydration Crystalloid volume administer (ml): 1,300 Total IV fluid infused: 1,300 Progress Note Anesthesia document: Postop Eval 1 completed: Yes 12/23/241332 Date Priscilla Willard TORCH SHEARER Cosigner Signature: Date CC: Signed [facility] MR/[id number] 12-23-2024 MR/POSTOPAN2 [facility] Medical Records Department [address] [facility] [place] [address] Anesthesia Postop Eval II 12/23/24 1433 MR#: [id number] Acct: [id number] Name: MARIA E GUTHRIE Rep #: [id number] : 1950 74 From: Osei Lubin MD PCP: Dr. Matt Saul MD Status:ADM BAR Y Race: C [facility] Postop Eval I Sum Postop Eval Completion status Anesthesia document: Postop Eval 1 completed: Yes Anesthesia Postop Eval I Summary Anesthesia Postop Eval I Summary: Anesthesia Postop Eval I: Assessment Summary Airway patent Yes 12/23/24 13:32 TORCH SHEARER.CSIR Spontaneous unlabored Yes 12/23/24 13:32 TORCH SHEARER.CSIR respirations Mental status nausea No 12/23/24 13:32 TORCH SHEARER.CSIR Vomiting No 12/23/24 13:32 TORCH SHEARER.CSIR Anesthesia Postop Eval I: Fluid Summary Crystalloid volume administer 1,300 12/23/24 13:32 TORCH SHEARER.CSIR (ml) Colloids volume administered ( ml) Blood Product volume administered (ml) Total IV fluid infused 1,300 12/23/24 13:32 TORCH SHEARER.CSIR Anesthesia Postop Eval I: Summary Notes Anesthesia Complication No 12/23/24 13:32 TORCH SHEARER.CSIR Anesthesia Complication Comment: Post-operative progress note Anesthesia: Postop Eval II Evaluation Mental status: Awake and Calm Pain Level: 1 nausea: No Vomiting: No Complications Anesthesia Complication: No 12/23/24 1433 Date Osei Lubin MD Cosigner Signature: Date CC: Signed Normal [facility] Magnesiumon 12-23-2024 Magnesium [Mass/Vol] 1.8 mg/dL Normal 1.5-2.2 [facility] Comment on above: Performed By: #### L [phone] #### [facility] Laboratory [facility] [place], [address] Magnesium measurement (mass/ volume)Ordered By: Faheem Barroso on 12-23-2024 Magnesium (Unsp spec) [Mass/Vol] 1.8 mg/dL 1.5-2.[address] [facility] Operative Reporton Operative Report [facility] Medical Records Department [address] [place] [address] Operative Report 12/23/24 1322 MR#: [id number] Acct: [id number] Name: MARIA E GUTHRIE Rep #: [id number] : 1950 74 From: Major Yi DO PCP: Dr. Matt Saul MD Status:[facility] Location: [place] [address] Operative Report (Standard) Operative Information Date of Procedure: 12/23/24 Pre-Operative Diagnosis: Right shoulder rotator cuff tear arthropathy Post-Operative Diagnosis: Right shoulder rotator cuff tear arthropathy Surgery/Procedure Performed: Right reverse total shoulder arthroplasty budget officer: Yes Data Entry Associate: Oneyda Solano Tasks completed by welder first class: Opening closing, Implanting device, Hemostasis: Electrocautery and [...] of surgery: Patient arrived to [facility] morning of the procedure and was greeted [...] positioned in the beachchair position. A well-padded preschool head teacher was applied. The nonoperative extremity was [...] (more content not included)... Normal [facility] Shoulder min 2 Viewson 12-23 Shoulder min 2 Views [facility] Imaging Services [address] [place] [address] Shoulder min 2 Views MR#: [id number] Acct: [id number] Name: MARIA E GUTHRIE Rep #: [id number] : 1950 M 74 From: Seven Suárez MD PCP: Dr. Matt Saul MD Status: [facility] Study: Shoulder min 2 Views Date of Exam: 12/23/24 Exam# [id number] Ordering Dr: Major Yi DO PROCEDURE: SHOULDER [...] IMPRESSION: Right shoulder reverse arthroplasty. Reading Location: [place] [address] CC: Dr. Matt Saul MD; Dr. Major Yi DO Tmh Teacher: Signed [facility] MR/PAT.ANEon 12-04-2024 MR/PAT.ANE [facility] Medical Records Department [address] [facility] [place] [address] PAT - Anesthesia 12/04/241946 MR#: [id number] Acct: [id number] Name: MARIA E GUTHRIE Rep #: [id number] : 1950 74 From: Faheem Barroso MD PCP: Dr. Matt Saul MD Status:PRE [facility] Y Race: C Location: [facility] Pre-Assessment Diagnosis/Proposed Procedure Planned Operative Procedure(s): RIGHT REVERSE TOTAL SHOULDER ARTHROPLASTY Anesthesia History Anesthesia History - tariff counsel: Anesthesia History - tariff counsel Hx Hospitalization No 12/03/24 10:59 Any Problems [...] take am of surgery PONV PONV - tariff counsel: PONV - tariff counsel Female No 12/03/24 10:59 HX of Motion Sickness No 12/03/24 10:59 HX of N/V After Surgery No 12/03/24 10:59 Non-Smoker Yes 12/03/24 10:59 Duration of Surgery greater Yes 12/03/24 10:59 than 60 minutes Number of Risk Factors 2 12/03/24 10:59 PONV Score Moderate Risk 12/03/24 10:59 Height Weight Height Weight: Anesthesia: Height Weight Height 6 ft 04/04/24 14:18 Respiratory Assessment Respiratory Assessment - tariff counsel: Respiratory Tract Infection Hx - tariff counsel Hx Respiratory Tract Infection No 12/03/24 10:59 STOP Sleep Apnea STOP Sleep Apnea - tariff counsel: STOP Sleep Apnea - tariff counsel Hx Hypertension Yes: CONTROLLED WITH MED 12/03/24 [...] Tobacco Use History Tobacco Use History - tariff counsel: Tobacco Use History - tariff counsel Tobacco Use Smoking Status Never smoker 12/03/24 10:59 Hx Tobacco Use No 12/03/24 10:59 Years Smoking Packs Smoked per Day Smoking Cessation Date was within the last 15 years Hx Smoking Cessation Date Hx Smoking Cessation Counseling Hematologic Medial History Hematologic Hx - tariff counsel: 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 Normal [facility] 12 Lead EKGon 11-27-2024 12 Lead EKG [facility] Cardiovascular Services [address] [place] [address] 12 Lead EKG 11/27/24 0654 MR#: [id number] Acct: [id number] Name: MARIA E GUTHRIE W Rep #: [id number] : 1950 74 From: Seven Grey MD Attending Dr: Dr. Major Yi DO Status: PRE [facility] Ordering Dr: Major Yi DO Date: 11/27/24 Location: [facility] Sex: M C Admitted: Test Reason : [...] Borderline ECG Confirmed by Seven Grey ([id number]), graphic editor KARINA GIVENS ([id number]) on 11/27/2024 9:43:00 AM Referred By: Major Yi Confirmed By: Seven Grey 11/27/24 0943 Date Seven Grey MD CC: Dr. Matt Saul MD; Dr. Major Yi DO Signed Normal [facility] Electrocardiogram reportOrde red By: Seven Grey on 11-27-2024 EKG study [facility] Cardiovascular Services [address] [place] [address] 12 Lead EKG 11/27/24 0654 MR#: [id number] Acct: [id number] Name: MARIA E GUTHRIE Rep #:[id number] : 1950 74 From: Seven alcantara MD Attending Dr: Dr. Major Yi DO Status: PRE [facility] Ordering Dr: Major Yi DO Date: 11/27/24 Location: [facility] Sex: M C Admitted: Test Reason : [...] block Borderline ECG Confirmed by Seven Grey ([id number]), graphic editor KARINA GIVENS ([id number]) on 59:43:00 AM Referred By: Major Yi Confirmed By: Seven Grey 11/27/24 0943 Date _ Seven Grey MD CC: Dr. Matt Saul MD; Dr. Major Yi DO ~ Signed [facility] Work Phone: Extremity Upper without Cont raon 11-26-2024 Extremity Upper without Contra [facility] Imaging Services [address] [place] [id number] Extremity Upper without Contra MR#: [id number] Acct: [id number] Name: MARIA E GUTHRIE Rep #: [id number] : 1950 M 74 From: Gonzalez Garcia MD PCP: Dr. Matt Saul MD Status: REG CLI Study: Extremity Upper without Contra Date of Exam: 0 11/26/24 Exam# [id number] Ordering Dr: Major Yi DO PROCEDURE: EXTREMITY [...] Matt Saul MD; Dr. Major Yi DO Tmh Teacher: Signed Normal [facility] Urgent Care Visit Reporton 0 07-09-2024 Urgent Care Visit Report [facility] [address], [address] [place] [address] OFFICE VISIT Date of Service: 07/09/24 MR#: [id number] Acct: [id number] Name: MARIA E GUTHRIE Rep #: [id number] : 1950 Provider: EDILSON Salinas Age/Sex: 74/M Location: [facility] Status: Signed Intake [...] Reasons: RASH ON BACK Chief Complaint: rash Hot Strip Finisher Required: No Is patient in pain?: Yes Allergies Sbsvqts-WEH-FuQ Reductase Inhibitor (Xzknlld-Kgo-Zpu Reductase Inhibitor) Adverse Reaction (Mild, Verified 07/09/24 17:33) myalgias Have you fallen in the past year?: No Nurse's Note: rash to left upper buttock/low back x 3-4 days with burning. 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 No vggu-rgv-hkwyuho products taken to assist. No other associated [...] Date (if applicable) CC: Normal [facility] Ankle min 3 Viewson 06-19-19 25 Ankle min 3 Views [facility] Imaging Services [address] [place] [id number] Ankle min 3 Views MR#: [id number] Acct: [id number] Name: MARIA E GUTHRIE Rep #: [id number] : 1950 M 74 From: Tenzin Joshua MD PCP: Dr. Matt Saul MD Status: REG CLI Study: Ankle min 3 Views Date of Exam: 06/18/24 Exam# [id number] Ordering Dr: Matt Saul EXAM: XR Right [...] evaluation with CT is recommended. Reading [facility] CC: Dr. Matt Saul MD Tmh Teacher: Signed Normal [facility] Foot min 3 Viewson Foot min 3 Views [facility] Imaging Services [address] [place], [place] [id number] Foot min 3 Views MR#: [id number] Acct: [id number] Name: MARIA E GUTHRIE Rep #: [id number] : 1950 M 74 From: Pako de leon MD PCP: Dr. Matt Saul MD Status: REG CLI Study: Foot min 3 Views Date of Exam: 06/18/24 Exam# [id number] Ordering Dr: Matt Saul PROCEDURE: FOOT MIN [...] suggestive of gout. Calcaneal spurs. Reading Location: [id number] CC: Dr. Matt Saul MD Tmh Teacher: Signed Normal [facility] Cardiology Visit Reporton Cardiology Visit Report [facility] [address] [place], [place] [address] OFFICE VISIT Date of Service: 04/04/24 MR#: [id number] Acct: [id number] Name: MARIA E GUTHRIE Rep #: [id number] : 1950 Provider: Dr. Nathan Purcell MD [...] has been put on Praluent by the [facility]. From a cardiac standpoint, the patient [...] Monitor Intake Visit Reasons: 1 Y FU Hot Strip Finisher Required: No Accompanied by: Self Is patient in pain?: No Allergies Frxndmo-SGZ-LdJ Reductase Inhibitor (Aoccele-Gzk-Fvh Reductase Inhibitor) Adverse Reaction (Mild, Verified 04/04/24 [...] Osteoarthritis Gout Atherosclerosis of coronary artery of swinomish heart without angina pectoris PTSD (post-traumatic stress [...] (more content not included)... Normal [facility] CNOVon 02-26-2024 CN Office Visit (GENSWS ) MARAI E GUTHRIE ([id number]) 1950 Date Time Provider Department 02/26/24 1:00 PM MADDIE BERNSTEIN GENS During your visit today, we recorded the following information about you: Maddie Bernstein APRN.CNP 02/26/2024 1:03 PM Signed FOLLOW UP VISIT - ENDOSCOPY Maria E John Maksim 1950 [id number] REFERRING PHYSICIAN: Matt Saul ([facility]) [address] [place] [id number] Maria E Guthrie is a patient I [...] Maddie Bernstein APRN.BALJIT Referring Provider: MATT SAUL [[id number]] Allergies As of Date: 02/26/2024 Noted Allergy Reaction ZOCOR (SIMVASTATIN) 08/15/2006 5 - Intolerance Comments: myalgias Date Reviewed: 02/26/2024 Reviewed by: Maddie Bernstein APRN.RACE RELATIONS ADVISER - Fully Assessed Reason for Visit: Follow Up [171] Cmt: Review colonoscopy results. Primary Visit Diagnosis:History of colonic polyps [Z86.0100] Prescriptions as of 02/26/2024 - alirocumab (PRALUENT) 150 mg/mL pen Inject 150 mg subcutaneously. - losartan (COZAAR) 100 mg tablet Take 100 mg by mouth. - fluticasone (FLONASE) 50 mcg/actuation nasal spray Use 1 Ashby in the nose once daily. - cyanocobalamin [...] Status:Closed by MADDIE BERNSTEIN on 02/26/[address] [facility] [id number] 02-19-2024 [id number] HNO ID: [id number] Author: ESTELLE BIRD RN Service: ? Author Type: Registered Nurse Type: [id number] Filed: 02/19/2024 12:17 Note Text: The patient received a copy of Colonoscopy discharge instructions that contain information for how to contact the physician who performed the procedure and when to seek medical care. Normal [facility] Colonoscopyon 02-19-2024 [facility] Patient Name: Maria E [...] previous diet. Procedure Code(s): --- Professional --- 31672, Colonoscopy, flexible; with biopsy, single or multiple G0500, Moderate sedation services provided by the same physician or other qualified health infant childcare provider performing a gastrointestinal endoscopic service that sedation supports, requiring the presence of an independent trained observer to assist in the monitoring of the patient's level of consciousness and physiological status; initial 15 minutes of intra-service time; patient age 5 years or older (additional time may be reported with [address]12, as appropriate) Diagnosis Code(s): --- Professional --- Z12.11, Encounter for screening for malignant neoplasm of colon Z86.010, Personal history of colonic polyps K64.8, Other hemorrhoids D12.5, Benign neoplasm of sigmoid colon CPT copyright 2020 [employer]. All rights reserved. The codes documented in this report are preliminary and upon division controller review may be revised to meet current compliance requirements. Attending Participation: I personally performed the entire procedure. Scope In: 11:39:45 AM Scope Out: 11:54:37 AM MD Demetri Sainz MD 02/19/2024 12:01:02 PM This report has been signed electronically by Demetri Lord MD Number of Addenda: 0 Note Initiated On: 02/19/2024 11:28 AM Estimated Blood Loss: Estimated blood loss was minimal. Normal [facility] Colonoscopy Study observatio non 02-19-2024 [facility] Gastrointestinal Endoscopy Patient Name: Maria E [...] previous diet. Procedure Code(s): --- Professional --- 17861, Colonoscopy, flexible; with biopsy, single or multiple G0500, Moderate sedation services provided by the same physician or other qualified health infant childcare provider performing a gastrointestinal endoscopic service that sedation sup (more content not included)... PROVATION [facility] Radiology Study observation (narrative) [facility] HISTORY PHYSICALon HISTORY PHYSICAL HNO ID: [id number] Author: DEMETRI LORD MD Service: General Surgery [...] Last colonoscopy 06/[address] Park at [facility]. Sedation:Midazolam 5 mg IV, Fentanyl 100 micrograms [...] (FLONASE) 50 mcg/actuation nasal spray Use 1 Ashby in the nose once daily. cyanocobalamin (VITAMIN [...] entered by the nurse and reviewed by wa Nursing Notes: Francisca Spann RN 02/16/2024 2:03 [...] The pa (more content not included)... Normal [facility] SURGICAL PATHOLOGYon [address] [facility] Comment on above: Order Comment: Speci men Type: TISSUE SPECIMEN Ordering Facility: [facility] Address: [address] [place] [address] Result Comment: Surg ical Pathology Report Case: [id number] Authorizing Provider: Demetri Lord MD Collected: 02/19/2024 11:51 AM Ordering Location: Ambulatory Surgery Received: 02/19/2024 12:46 PM Pathologist: Tracie Hwang MD Specimen: Colon, Sigmoid, Polyp Performed By: #### S #### [facility] CLIA [id number] [address] [place] [address] [place] FINAL DIAGNOSIS Normal [facility] Comment on above: Order Comment: Speci men Type: TISSUE SPECIMEN Ordering Facility: [facility] Address: [address] [place] [address] Result Comment: A. C olon, sigmoid, polyp, polypectomy -Tubular adenoma Performed By: #### S #### [facility] CLIA [id number] [address] [place] [address] [place] FINAL PERFORMING LAB Normal [facility] Comment on above: Order Comment: Speci men Type: TISSUE SPECIMEN Ordering Facility: [facility] Address: [address] [place] [address] Result Comment: Diag nostic interpretation performed at [facility], [address] [place] [address] CLIA# [id number] Assistant Professor Of Business: Karel Singer M.D. Performed By: #### S #### [facility] CLIA [id number] [address] [place] [address] [place] GROSS DESCRIPTION Normal [facility] Comment on above: Order Comment: Speci men Type: TISSUE SPECIMEN Ordering Facility: [facility] Address: [address] [place] [address] Result Comment: A. Luna olon, Sigmoid, Polyp Received in formalin is one piece of simon, soft tissue measuring 0.4 x 0.3 x 0.2 cm. Totally submitted in one cassette. KDK February 19, 2024 7:33 PM Gross examination performed at [facility], [address] [place] [address] Performed By: #### S #### [facility] CLIA [id number] [address] [place] [address] [id number] CNOVon 02-16-2024 CNOV Office Visit (GENSWS ) MARIA E GUTHRIE ([id number]) 1950 Date Time Provider Department 02/16/24 2:00 [...] E denies diarrhea. Maria E denies constipation. Maira E denies a change in bowel habits. [...] Last colonoscopy 06/[address] Park at [facility]. Sedation:Midazolam 5 mg IV, Fentanyl 100 micrograms [...] (FLONASE) 50 mcg/actuation nasal spray Use 1 Ashby in the nose once daily. cyanocobalamin (VITAMIN [...] entered by the nurse and reviewed by wa Nursing Notes: Francisca Spann RN 02/16/2024 2:03 [...] stent. Respir (more content not included)... Normal [facility] MAR[facility] E GUTHRIE ([id number]) 1950 M Date Time Provider Department 02/16/24 MOLLY BERNSTEIN During your visit today, we recorded the following information about you: Melanie Marcelino 02/16/2024 2:37 PM Signed 02-19-2024 Colonoscopy concepción EFREN Cook prep, nurse went over instructions yudy has direct number to contact for any questions or concerns., Instructed patient to arrive at 1045 in [facility] Allergies As of Date: 02/16/2024 Noted Allergy Reaction ZOCOR (SIMVASTATIN) 08/15/2006 5 - Intolerance Comments: myalgias Date Reviewed: 02/16/2024 Reviewed by: Maddie Bernstein APRN.RACE RELATIONS ADVISER - Fully Assessed Reason for Visit: 02-19-2024 Colonscoopy [Other] Prescriptions as of 03/18/2024 - alirocumab (PRALUENT) 150 mg/mL pen Inject 150 mg subcutaneously. - losartan (COZAAR) 100 mg tablet Take 100 mg by mouth. - fluticasone (FLONASE) 50 mcg/actuation nasal spray Use 1 Ashby in the nose once daily. - cyanocobalamin [...] Encounter Status:Closed by MELANIE MARCELINO on 03/18/[address] [facility] No Panel InformationOrdered By: Joe Joshua on 08-18-2023 Troponin I High Sensitivity 9 pg/mL 3.0-78.[address] [facility] Comment on above: Please Note: New [place] t Units and Gender Specific Reference Ranges. For more information see Policy Stat Procedure [facility] High Sensitivity Troponin (TNIH) and attachments. Absolute lymphocyte countOrd ered By: Joe Joshua on 08-17-2023 Lymphocytes Auto (Unsp spec) [#/Vol] 2.02 10*3/uL 0.83-4.[address] [facility] Automated lymphocyte count a s percentage of total leukocytesOrdered By: Joe Joshua on 08-17-2023 Lymphocytes/100 WBC Auto (Unsp spec) 49.8 % 19-[address] [facility] Basophil percentageOrdered B y: Joe Joshua on 08-17-2023 Basophils/100 WBC (Bld) 0.5 % 0-1 [facility] Chloride [Moles/Vol] 101 mmol/L 98-107 [facility] Eosinophils/100 WBC (Bld) 0.7 % 0-[address] [facility] Glucose [Mass/Vol] 195 mg/dL 74-106 [facility] Comment on above: Fasting Glucose resu lt greater than or equal to 126 mg/dL suggests DIABETES MELLITUS per A.D.A. criteria. Hemoglobin (Bld) [Mass/Vol] 15.4 g/dL 13.0-16.[address] [facility] Monocytes/100 WBC (Bld) 10.1 % 0-10 [facility] Neutrophils (Bld) [#/Vol] 1.6 10*3/uL 2.0-7.[address] [facility] Neutrophils/100 WBC (Bld) 38.9 % 47-[address] [facility] Potassium [Moles/Vol] 3.1 mmol/L 3.5-5.1 [facility] Sodium [Moles/Vol] 135 mmol/L 136-145 [facility] WBC (Bld) [#/Vol] 4.1 10*3/uL 4.4-11.0 [facility] Determination of erythrocyte mean corpuscular volume (MCV)Ordered By: Joe Joshua on 08-17-2023 MCV (RBC) [Entitic vol] 87.0 fL 80-94 [facility] Erythrocyte distribution wid th ratioOrdered By: Joe Joshua on 08-17-2023 Erythrocyte distribution width (RBC) [Ratio] 13.0 % 11.6-14.[address] [facility] Erythrocyte distribution wid th standard deviationOrdered By: Joe Joshua on 08-17-2023 Erythrocyte distribution width (RBC) [Entitic vol] 40.8 fL 35.1-43.[address] [facility] Hematocrit Auto (Bld) [Volum e fraction]Ordered By: Joe Joshua on 08-17-2023 Hematocrit (Bld) [Volume fraction] 45.4 % 40-[address] [facility] Immature granulocytes/100 WB C Auto (Bld)Ordered By: Joe Joshua on 08-17-2023 Immature granulocytes/100 WBC (Bld) 0.000 % 0.0-0.[address] [facility] Comment on above: IG% - Immature Granu locytes (promyelocytes, myelocytes and metamyelocytes) > 1% indicates that a LEFT SHIFT is Present. Laboratory - Chemistry and C hemistry - challengeOrdered By: Joe Joshua on 08-17-2023 CO2 [Moles/Vol] 29.0 mmol/L 21.0-32.[address] [facility] Urea nitrogen/Creatinine [Mass ratio] 18.5 mg/mg 10-[address] [facility] Laboratory - Hematology and Cell countsOrdered By: Joe Joshua on 08-17-2023 MCH (RBC) [Entitic mass] 29.5 pg 27.0-32.[address] [facility] MCHC (RBC) [Mass/Vol] 33.9 g/dL 32-36 [facility] Nucleated RBC/100 WBC (Bld) [Ratio] 0 % 0-[address] [facility] Platelet mean volume (Bld) [Entitic vol] 10.7 fL 6.2-12.[address] [facility] Platelets (Bld) [#/Vol] 147 10*3/uL 150-[address] [facility] No Panel InformationOrdered By: Joe Joshua on 08-17-2023 D-Dimer Quantitative (PE/DVT) 0.44 FEU/ug/m 0.27-0.[address] [facility] Comment on above: NORMAL D-Dimer level (<0.50) indicates no DVT or PE. Estimated Creatinine Clearance Calc 72.22 ml/min [facility] Estimated GFR (MDRD) Amer 97 mL/min >[address] [facility] Comment on above: GFR Calc Estimated GFR (MDRD) Non-Af Amer 80 mL/min >[address] [facility] Comment on above: Non- GFR Calc RBC Auto (Bld) [#/Vol]Ordere d By: Joe Joshua on 08-17-2023 RBC (Bld) [#/Vol] 5.22 10*6/uL 4.6-6.2 [facility] Serum or plasma calcium collin urement (mass/volume)Ordered By: Joe Joshua on 08-17-2023 Calcium [Mass/Vol] 9.4 mg/dL 8.5-10.1 [facility] Serum or plasma creatinine m easurement (mass/volume)Ordered By: Joe Joshua on 08-17-2023 Creatinine [Mass/Vol] 0.97 mg/dL 0.70-1.30 [facility] Comment on above: The validity of the calculated GFR & GFRAA in patients over 70 years has not been determined. Clinical correlation is essential. Serum or plasma urea nitroge n measurement (mass/volume)Ordered By: Joe Joshua on 08-17-2023 Urea nitrogen [Mass/Vol] 18 mg/dL 7-[address] [facility] Thin prep Papanicolaou smear with manual screeningOrdered By: Joe Joshua on 08-17-2023 Thin prep Papanicolaou smear with manual screening 5 5-[address] [facility] No Panel Informationon 05-17 Influenza Types A,B Rapid (Clinic) Pos FLU A &Neg FLU B [facility] Office Visiton 11-08-2016 Fall risk assessment No [facility] Work Phone: [phone] Protein mass conc Done [facility] Work Phone: [phone] Chart Maintenanceon 11-07-19 17 Left ventricular Ejection fraction 75 % [facility] Work Phone: Office Visiton 03-29-2016 Dietary management education, guidance, and counseling (procedure) yes Invalid Interpretation Code [facility] Work Phone: [phone] Documentation of current medications (procedure) Done Invalid Interpretation Code [facility] Work Phone: [phone] Tobacco smoking status NHIS Never smoker [facility] Work Phone: [phone] Tobacco use CPHS Never smoker Invalid Interpretation Code [facility] Work Phone: [phone] Clinical Lists Update: Prelo dialysis registered nurse 12-22-2015 Alanine aminotransferase (ALT) 45 U/L [facility] Work Phone: [phone] Albumin 4.1 g/dL [facility] Work Phone: [phone] Alkaline phosphatase (ALP) 51 U/L Invalid Interpretation Code [facility] Work Phone: [phone] ALP enzyme act/vol (Bld) 51 U/L [facility] Work Phone: [phone] Anion gap 16 mmol/L Invalid Interpretation Code [facility] Work Phone: [phone] Anion gap molar conc 16 mmol/L [facility] Work Phone: [phone] Aspartate aminotransferase (AST) 40 U/L [facility] Work Phone: [phone] Bilirubin (total) 0.5 mg/dL [facility] Work Phone: [phone] Calcium 8.9 mg/dL [facility] Work Phone: [phone] Chloride 109 mmol/L High [facility] Work Phone: [phone] Cholesterol 202 mg/dL High [facility] Work Phone: [phone] CO2 19 mmol/L Low [facility] Work Phone: [phone] CO2 ppres (BldV) 19 mmol/L Low [facility] Work Phone: [phone] Creatinine 1.0 mg/dL [facility] Work Phone: [phone] Erythrocyte distribution width Ratio (RBC) 13.6 % [facility] Work Phone: [phone] Erythrocytes (RBC) 5.69 10*6/uL Invalid Interpretation Code [facility] Work Phone: [phone] Glucose 117 mg/dL Invalid Interpretation Code [facility] Work Phone: [phone] Glucose mass conc 117 mg/dL [facility] Work Phone: [phone] HbA1c 6.5 % High [facility] Work Phone: [phone] HDL Cholesterol 45 mg/dL [facility] Work Phone: [phone] Hematocrit (HCT) 49.1 % Invalid Interpretation Code [facility] Work Phone: [phone] Hematocrit Volume Fraction (Bld) 49.1 % [facility] Work Phone: [phone] Hemoglobin (HGB) 16.6 g/dL [facility] Work Phone: [phone] LDL Cholesterol 130 mg/dL High [facility] Work Phone: [phone] Magnesium 2.3 mg/dL [facility] Work Phone: [phone] MCH 29.2 pg Invalid Interpretation Code [facility] Work Phone: [phone] MCH Entitic mass (RBC) 29.2 pg [facility] Work Phone: [phone] MCHC 33.8 g/dL Invalid Interpretation Code [facility] Work Phone: [phone] MCHC mass conc (RBC) 33.8 g/dL [facility] Work Phone: [phone] MCV 86.3 fL Invalid Interpretation Code [facility] Work Phone: [phone] MCV Entitic volume (RBC) 86.3 fL [facility] Work Phone: [phone] Platelets 245 10*3/mm3 Invalid Interpretation Code [facility] Work Phone: [phone] Platelets #/vol (Bld) 245 10*3/mm3 [facility] Work Phone: [phone] Potassium 3.9 mmol/L [facility] Work Phone: [phone] Protein 7.3 g/dL [facility] Work Phone: [phone] RBC #/vol (Bld) 5.69 10*6/uL [facility] Work Phone: [phone] RDW-CA 13.6 % Invalid Interpretation Code [facility] Work Phone: [phone] Sodium 140 mmol/L [facility] Work Phone: [phone] Thyroid stimulating hormone (TSH) 1.23 u[iU]/mL [facility] Work Phone: [phone] Thyroxine (T4) free 1.05 ng/dL [facility] Work Phone: [phone] Triglyceride 272 mg/dL High [facility] Work Phone: [phone] Urea nitrogen 19 mg/dL [facility] Work Phone: [phone] WBC #/vol (Bld) 4.84 10*3/uL [facility] Work Phone: [phone] WBC (Leukocytes) 4.84 10*3/uL Invalid Interpretation Code [facility] Work Phone: [phone] Lab Report: Lipid Profileon 04-08-2015 very low density lipoproteins 35 mg/dL 5-40 [facility] Work Phone: [phone] Lab Report: Liver Profileon 04-08-2015 Bilirubin (direct) 0.12 mg/dL 0.00-0.30 [facility] Work Phone: [phone] Globulin 3.2 g/dL Invalid Interpretation Code 2.3-3.5 [facility] Work Phone: [phone] Globulin mass conc (S) 3.2 g/dL 2.3-3.5 [facility] Work Phone: [phone] Clinical Lists Update: Prelo dialysis registered nurse 04-02-2014 Globulin 3.0 g/dL Invalid Interpretation Code [facility] Work Phone: [phone] Globulin mass conc (S) 3.0 g/dL [facility] Work Phone: [phone] External Other: Preferred Me thod of Contacton 04-02-2014 methcontact secmsg [facility] Work Phone: [phone] Patient's prefered method of contact secmsg Invalid Interpretation Code [facility] Work Phone: [phone] Lab Report: Liver Profileon 04-02-2014 ALK P 49 U/L Critically low 50-136 [facility] Work Phone: [phone] GE use only - for [employer] import when terms are not otherwise specified 49 U/L Critically low 50-136 [facility] Work Phone: [phone] Office Visiton 03-31-2014 cardiac risk group C [facility] Work Phone: [phone] General cardiovascular disease 10Y risk [#] Salineno.Kei'Agomik N/A [facility] Work Phone: Vital Signs Date Time Vital Sign Value Performing Clinician Alexa bedoya 12-24-2024 08:33-0400 Heart rate 58 /min Dr. Matt Saul MD Work Phone: [facility] 12-24-2024 08:26-0400 Body temperature 97.6 [degF] Dr. Matt Saul MD Work Phone: [facility] 12-24-2024 08:26-0400 Diastolic blood pressure 71 mm[Hg] Dr. Matt Saul MD Work Phone: 4(947)353-229987 [place] [address] 12-24-2024 08:26-0400 Respiratory rate 18 /min Dr. Matt Saul MD Work Phone: 9(334)991-653194 [address] 12-24-2024 08:26-0400 SaO2% (BldA) [Mass fraction] 95 % Dr. Matt Saul MD Work Phone: 5(227)636-321594 [address] 12-24-2024 08:26-0400 Systolic blood pressure 128 mm[Hg] Dr. Matt Saul MD Work Phone: 5(725)878-740294 [address] 12-23-2024 18:43-0400 Inhaled oxygen flow rate 2 L/min Dr. Matt Saul MD Work Phone: [facility] 12-23-2024 14:44-0400 Body height 182.[address] Matt Saul MD Work Phone: 3(553)382-107394 [address] 12-23-2024 14:44-0400 Body mass index (BMI) [Ratio] 26.9 kg/m2 Dr. Matt Saul MD Work Phone: 3(018)054-197087 [place] [address] 12-23-2024 14:44-0400 Body weight [address] Matt Saul MD Work Phone: 6(404)516-235986 [place] [address] 04-04-2024 14:18-0500 Body height 182.[address] Matt Saul MD Work Phone: 0(678)572-367594 [address] 04-04-2024 14:18-0500 Body mass index (BMI) [Ratio] 27.2 kg/m2 Dr. Matt Saul MD Work Phone: [facility] 04-04-2024 14:18-0500 Body weight 91.[address] Matt Saul MD Work Phone: [facility] 04-04-2024 14:18-0500 Diastolic blood pressure 90 mm[Hg] Dr. Matt Saul MD Work Phone: [facility] 04-04-2024 14:18-0500 Heart rate 69 /min Dr. Matt Saul MD Work Phone: [facility] 04-04-2024 14:18-0500 Respiratory rate 16 /min Dr. Matt Saul MD Work Phone: [facility] 04-04-2024 14:18-0500 Systolic blood pressure 132 mm[Hg] Dr. Matt Saul MD Work Phone: [facility] 02-19-2024 12:20-0500 Diastolic blood pressure 72 mm[Hg] Demetri Lord MD Work Phone: [facility] 02-19-2024 12:20-0500 Heart rate 55 /min Demetri Lord MD Work Phone: [facility] 02-19-2024 12:20-0500 Respiratory rate 16 /min Demetri Lord MD Work Phone: [facility] 02-19-2024 12:20-0500 SaO2% (BldA) [Mass fraction] 95 % Demetri Lord MD Work Phone: [facility] 02-19-2024 12:20-0500 Systolic blood pressure 115 mm[Hg] Demetri oLrd MD Work Phone: [facility] 02-19-2024 10:40-0500 Body mass index (BMI) [Ratio] 27.18 kg/m2 Demetri Lord MD Work Phone: [facility] 02-19-2024 10:40-0500 Body temperature 98.4 [degF] Demetri Lord MD Work Phone: [facility] 02-19-2024 10:40-0500 Body weight 90.9 kg Demetri Lord MD Work Phone: [facility] 02-16-2024 14:03-0400 Body height 182.9 cm Maddie Jakob POSTAL SUPERVISOR.RACE RELATIONS ADVISER Work Phone: [facility] 02-16-2024 14:03-0400 Body mass index (BMI) [Ratio] 27.18 kg/m2 Maddie Jakob POSTAL SUPERVISOR.RACE RELATIONS ADVISER Work Phone: [facility] 02-16-2024 14:03-0400 Body temperature 97.81 [degF] Maddie Jakob POSTAL SUPERVISOR.RACE RELATIONS ADVISER Work Phone: [facility] 02-16-2024 14:03-0400 Body weight 90.9 kg Maddie Jakob POSTAL SUPERVISOR.RACE RELATIONS ADVISER Work Phone: [facility] 02-16-2024 14:03-0400 Diastolic blood pressure 82 mm[Hg] Maddie Jakob POSTAL SUPERVISOR.RACE RELATIONS ADVISER Work Phone: [facility] 02-16-2024 14:03-0400 Heart rate 80 /min Maddie Jakob POSTAL SUPERVISOR.RACE RELATIONS ADVISER Work Phone: [facility] 02-16-2024 14:03-0400 SaO2% (BldA) [Mass fraction] 92 % Maddie Jakob POSTAL SUPERVISOR.RACE RELATIONS ADVISER Work Phone: [facility] 02-16-2024 14:03-0400 Systolic blood pressure 138 mm[Hg] Maddie Jakob POSTAL SUPERVISOR.RACE RELATIONS ADVISER Work Phone: [facility] 08-18-2023 01:00-0400 Body temperature 98.5 [degF] Dr. Matt Saul Work Phone: [facility] 08-18-2023 01:00-0400 Diastolic blood pressure 91 mm[Hg] Dr. Matt Saul Work Phone: [facility] 08-18-2023 01:00-0400 Heart rate 59 /min Dr. Matt Saul Work Phone: [facility] 08-18-2023 01:00-0400 Respiratory rate 18 /min Dr. Matt Saul Work Phone: 4(021)845-684194 [address] 08-18-2023 01:00-0400 SaO2% (BldA) [Mass fraction] 98 % Dr. Matt Saul Work Phone: [facility] 08-18-2023 01:00-0400 Systolic blood pressure 148 mm[Hg] Dr. Matt Saul Work Phone: 8(241)622-670286 [place] [address] 08-17-2023 21:03-0400 Body height 182.[address] Matt Saul Work Phone: 4(405)808-628087 [place] [address] 08-17-2023 21:03-0400 Body mass index (BMI) [Ratio] 27.7 kg/m2 Dr. Matt Saul Work Phone: 3(121)694-634094 [address] 08-17-2023 21:03-0400 Body weight 92.[address] Matt Saul Work Phone: 4(380)852-904287 [place] [address] 05-17-2023 11:30-0500 Body mass index (BMI) [Ratio] 28.2 kg/m2 Dr. Matt Saul Work Phone: 8(489)610-530286 [place] [address] 05-17-2023 11:30-0500 Body temperature 97.8 [degF] Dr. Matt Saul Work Phone: 0(622)911-409986 [place] [address] 05-17-2023 11:30-0500 Body weight 94.[address] Matt Saul Work Phone: 3(920)071-190587 [place] [address] 05-17-2023 11:30-0500 Diastolic blood pressure 76 mm[Hg] Dr. Matt Saul Work Phone: 2(178)220-860494 [address] 05-17-2023 11:30-0500 Heart rate 71 /min Dr. Matt Saul Work Phone: [facility] 05-17-2023 11:30-0500 Respiratory rate 16 /min Dr. Matt Saul Work Phone: [facility] 05-17-2023 11:30-0500 SaO2% (BldA) [Mass fraction] 96 % Dr. Matt Saul Work Phone: [facility] 05-17-2023 11:30-0500 Systolic blood pressure 140 mm[Hg] Dr. Matt Saul Work Phone: [facility] 02-08-2023 13:58-0400 Body height 182.[address] Armond Saul Work Phone: 0(241)677-693294 [address] 02-08-2022 13:51-0400 Body height 182.[address] Armond Saul Work Phone: 7(781)641-673194 [address] 02-08-2022 13:51-0400 Body mass index (BMI) [Ratio] 26.9 kg/m2 Dr. Armond Saul Work Phone: 4(727)684-014686 [place] [address] 02-08-2022 13:51-0400 Body mass index (BMI) [Ratio] 28 kg/m2 Dr. Armond Saul Work Phone: [facility] 02-08-2022 13:51-0400 Body weight 90.[address] Armond Saul Work Phone: [facility] 02-08-2022 13:51-0400 Body weight 93.[address] Armond Saul Work Phone: [facility] 02-08-2022 13:51-0400 Diastolic blood pressure 91 mm[Hg] Dr. Armond Saul Work Phone: [facility] 02-08-2022 13:51-0400 Diastolic blood pressure 84 mm[Hg] Dr. Armond Saul Work Phone: [facility] 02-08-2022 13:51-0400 Heart rate 70 /min Dr. Armond Saul Work Phone: [facility] 02-08-2022 13:51-0400 Heart rate 67 /min Dr. Armond Saul Work Phone: [facility] 02-08-2022 13:51-0400 Respiratory rate 16 /min Dr. Armond Saul Work Phone: [facility] 02-08-2022 13:51-0400 Respiratory rate 18 /min Dr. Armond Saul Work Phone: [facility] 02-08-2022 13:51-0400 SaO2% (BldA) [Mass fraction] 95 % Dr. Armond Saul Work Phone: [facility] 02-08-2022 13:51-0400 SaO2% (BldA) [Mass fraction] 94 % Dr. Armond Saul Work Phone: [facility] 02-08-2022 13:51-0400 Systolic blood pressure 155 mm[Hg] Dr. Armond Saul Work Phone: [facility] 02-08-2022 13:51-0400 Systolic blood pressure 132 mm[Hg] Dr. Armond Saul Work Phone: [facility] 11-08-2016 13:10-0400 BMI (Body Mass Index) 28.87 kg/m2 [facility] Work Phone: 11-08-2016 13:10-0400 BP Diastolic 68 mm[Hg] [facility] Work Phone: 11-08-2016 13:10-0400 BP Systolic 130 mm[Hg] [facility] Work Phone: 11-08-2016 13:10-0400 Height 180.34 cm [facility] Work Phone: 11-08-2016 13:10-0400 Pulse (Heart Rate) 58 /min [facility] Work Phone: 11-08-2016 13:10-0400 Respiratory [...] Provider Facility Start: 02-26-2025 ambulatory Oneyda Solano Facility:[facility] Start: 01-15-2025 Registered Recurring Oneyda Solano PA -Physical Therapy Work Phone: Start: 01-06-2025 End: 01-06-[address] Matt Saul MD Work Phone: -Laboratory Specimen Start: 01-06-2025 End: 01-06-[address] Matt Saul MD -Laboratory Specimen Work Phone: Start: 01-06-2025 End: 01-06-2025 ambulatory Matt Saul Facility:[facility] Start: 12-26-2024 Encounter for other preprocedural examination [facility] Start: 12-26-2024 Encounter for preprocedural cardiovascular examination [facility] Start: 12-24-2024 Non-patient / Non-visit Dr. Yumiko Carrillo MD -[facility] Work Phone: Start: 12-23-2024 Non-patient / Non-visit [facility] -[facility] Work Phone: Start: 12-23-2024 End: 12-24-2024 ambulatory Major Yi Facility:[facility] Start: 12-23-2024 End: 12-24-2024 Evaluation and management of inpatient Dr. Major Yi DO -Medical Surgical 3 Work Phone: Start: 12-23-2024 End: 12-24-[address] Matt Saul MD Work Phone: -Medical Surgical 3 Start: 11-27-2024 ambulatory Major Carrascoi ty:[facility] Start: 11-27-2024 Non-patient / Non-visit Dr. Seven Grey MD -[facility] Work Phone: Start: 11-26-2024 End: 11-26-[address] Matt Saul MD Work Phone: -Cat Scan [facility] Start: 11-26-2024 End: 11-26-[address] Major Yi DO -Cat Scan [facility] Work Phone: Start: 11-26-2024 End: 11-26-2024 ambulatory Major Yi Facility:[facility] Start: 07-09-2024 End: 07-09-2024 ambulatory Yang WAGGONER Facility:[facility] Start: 06-18-2024 End: 06-18-[address] Matt Saul MD Work Phone: [facility] Work Phone: Start: 06-18-2024 End: 06-18-[address] Matt Saul MD -Radiology, [place] Work Phone: Start: 06-18-2024 End: 06-18-2024 ambulatory Matt Colegregory Facility:[facility] Start: 04-04-2024 End: 04-04-[address] Nathan Purcell MD -[facility] Work Phone: Start: 04-04-2024 End: 04-04-2024 ambulatory Nathan Purcell Facility:[facility] Start: 02-26-2024 End: 02-26-[address] [facility] Facility:[facility] Start: 02-26-2024 End: 02-26-2024 Patient encounter procedure Maddie Bernstein APRN.RACE RELATIONS ADVISER Work Phone: General Surgery Comment on above: History of colonic p olyps (Primary Dx) Start: 02-19-2024 End: 02-19-[address] [facility] Facility:[facility] Start: 02-19-2024 End: 02-19-2024 Subsequent hospital visit by physician Demetri Lord MD Work Phone: Ambulatory Surgery Comment on above: History of colonic p olyps [Z86.0100] Start: 02-16-2024 End: 02-16-[address] [facility] Facility:[facility] Start: 02-16-2024 End: 02-16-2024 Patient encounter procedure Maddie Bernstein APRN.RACE RELATIONS ADVISER Work Phone: General Surgery Comment on above: History of colonic p olyps (Primary Dx); Screen for colon cancer Start: 02-16-2024 End: 03-18-2024 Telephone encounter Molly VEGA General Surgery Comment on above: 02-19-2024 Colonscoo py Start: 08-17-2023 End: 08-18-2023 Emergency department patient visit Dr. Matt Saul Work Phone: [facility]Emer[facility] Department Work Phone: Start: 05-17-2023 End: 05-17-[address] Matt Saul Work Phone: [facility] Work Phone: Start: 03-15-2023 Non-patient / Non-visit Dr. Jabier Saul Work Phone: [facility] Work Phone: Start: 03-14-2023 Non-patient / Non-visit Dr. Jabier Saul Work Phone: [facility] Start: 03-14-2023 End: 03-14-[address] Armond Saul Work Phone: [facility] Work Phone: Start: 03-14-2023 End: 03-14-[address] Armond Saul Work Phone: [facility] Work Phone: Start: 02-08-2023 End: 02-08-[address] Armond Saul Work Phone: [facility] Work Phone: Start: 05-20-2022 Non-patient / Non-visit Dr. Jabier Saul Work Phone: [facility] Start: 05-17-2022 Non-patient / Non-visit Dr. Jabier Saul Work Phone: [facility] Start: 05-17-2022 End: 05-17-[address] Armond Saul Work Phone: [facility] Work Phone: Start: 05-17-2022 End: 05-17-[address] [facility] Start: 05-04-[address] Rowdy Saul Work Phone: [facility] Start: 02-08-2022 End: 02-08-[address] Armond Saul Work Phone: [facility] Procedures Date Procedure Procedure Detail [...] dx w/collj spec when pfrmd Maddie Bernstein POSTAL SUPERVISOR.RACE RELATIONS ADVISER Work Phone: Start: 02-19-2024 Colonoscopy Demetri abernathy [...] - S marciano or Plasma Maddie Bernstein APRN.RACE RELATIONS ADVISER Work Phone: Start: 03-31-2014 End: 04-02-2014 *Hepatic [...] P,Tdap,Td Vaccine (4 - Td or Tdap) [facility] Start: 02-18-2027 Screening for malign ant neoplasm of colon [facility] Start: 12-24-2024 Patient discharge [facility] Start: 12-23-2024 Care regimes management [facility] Start: 12-23-2024 Notification of physician [facility] Start: 12-23-2024 [facility] Start: 12-23-2024 Application of intermittent pneumatic compression device [facility] Start: 12-23-2024 Following clinical p athway protocol [facility] Start: 12-23-2024 Anes arthroscopic to bernard shoulder replacement ANESTH SHOULDER REPLACEMENT [facility] Start: 12-23-2024 Prosthetic total arthroplasty of left shoulder RECONSTRUCT SHOULDER JOINT [facility] Start: 12-23-2024 Admission procedure [facility] Start: 12-23-2024 Ambulation therapy management [facility] Start: 12-23-2024 Application of device [facility] Start: 12-23-2024 Assessment of risk o f venous thromboembolism [facility] Start: 12-23-2024 Catheterization of vein [facility] Start: 12-23-2024 Following clinical p athway protocol [facility] Start: 12-23-2024 Incentive spirometry [facility] Start: 12-23-2024 Introduction of urin angeline catheter [facility] Start: 12-23-2024 Measuring intake and output [facility] Start: 12-23-2024 Neurovascular assessment [facility] Start: 12-23-2024 Patient education [facility] Start: 12-23-2024 Procedure discontinued [facility] Start: 12-23-2024 Provision of activit y privileges [facility] Start: 12-23-2024 Recommendation to co ritika with treatment [facility] Start: 12-23-2024 Referral to occupati onal therapist [facility] Start: 12-23-2024 Vital signs measurements [facility] Start: 12-23-2024 Wound care [facility] Start: 12-23-2024 [facility] Start: 12-23-2024 Consultation [facility] Start: 02-26-2024 End: 02-26-2024 Patient encounter procedure 02/26/2024 1:00 PM EST Office Visit General Surgery [address] [place] [address] Maddie Bernstein APRN.RACE RELATIONS ADVISER [address] [place] [address] Colonsocopy follow up 02-19-2024 General Surgery Comment on above: Colonsocopy follow u p 02-19-2024 Start: 02-19-2024 End: 02-19-2024 Patient encounter procedure 02/19/2024 11:45 AM EST Appointment Ambulatory Surgery [address] [place] [address] Demetri Lord MD [address] [place] [address] Ambulatory Surgery Start: 08-18-2023 [facility] Start: 08-17-2023 [facility] Start: 07-01-2023 Screening for malign ant neoplasm of colon [facility] Start: 04-17-2023 Advance Directive Discussion Advance Directive Discussion [facility] Start: 03-21-2022 Diabetes Screening Diabetes Screenin g [facility] Start: 11-15-2021 Pneumococcal Vaccine : 65+ (2 of 2 - PPSV23 or PCV20) Pneumococcal Vaccine: 65+ (2 of 2 - PPSV23 or PCV20) [facility] Start: 04-02-2019 Lipid panel Lipid Screening [facility] Start: 05-11-2017 End: 05-11-2017 Appointment Appointment [facility] Work Phone: Start: 11-08-2016 End: 11-08-2016 Appointment Appointment [facility] Work Phone: Start: 11-08-2016 End: 11-08-2016 *Hepatic Function Panel *Hepatic Function Panel [facility] Work Phone: Start: 11-08-2016 End: 11-08-2016 GERRY GARRETT [facility] Work Phone: Start: 11-08-2016 End: 11-08-2016 Follow Up Appt 6 months Follow Up Appt 6 months [facility] Work Phone: Start: 11-08-2016 End: 11-08-2016 Lipid 1996 panel *Lipid Profile CC PCP [facility] Work Phone: Start: 10-19-2016 End: 11-08-2016 *Hepatic Function Panel *Hepatic Function Panel [facility] Work Phone: Start: 10-19-2016 [...] Lipid panel [AGGREGATE] *Lipid Profile CC PCP [facility] Work Phone: Start: 03-31-2015 End: 04-08-2015 *Hepatic Function Panel *Hepatic Function Panel [facility] Work Phone: Start: 03-31-2015 End: 03-31-2015 GERRY GARRETT [facility] Work Phone: Start: 03-31-2015 End: 03-31-2015 Follow Up Appt 1 year Follow Up Appt 1 year [facility] Work Phone: Start: 03-31-2015 End: 04-08-2015 Lipid panel [AGGREGATE] *Lipid Profile CC PCP [facility] Work Phone: Start: 12-29-2014 End: 12-30-2014 Stress Echocardiogram (treadmill) Stress Echocardiogram (treadmill) [facility] Work Phone: Start: 03-31-2014 End: 04-02-2014 *Hepatic Function Panel *Hepatic Function Panel [facility] Work Phone: Start: 03-31-2014 End: 03-31-2014 GERRY GERRY [facility] Work Phone: Start: 03-31-2014 End: 03-31-2014 Follow Up Appt 1 year Follow Up Appt 1 year [facility] Work Phone: Start: 03-31-2014 End: 04-02-2014 Lipid panel [AGGREGATE] *Lipid Profile CC PCP [facility] Work Phone: Start: 03-31-2014 End: 03-31-2014 Stress Echocardiogram (treadmill) Stress Echocardiogram (treadmill) [facility] Work Phone: Start: 06-10-2013 End: 06-10-2013 GERRY GERRY [facility] Work Phone: Start: 06-10-2013 End: 06-10-2013 Follow Up Appt 1 year Follow Up Appt 1 year [facility] Work Phone: Start: 03-25-2013 End: 03-25-2013 GERRY GERRY [facility] Work Phone: Start: 03-25-2013 End: 03-25-2013 Follow Up Appt 1 year Follow Up Appt 1 year [facility] Work Phone: Start: 08-07-2005 Hepatitis B surface antibody level LDL Cholesterol [facility] Start: 1993 Screening for malign ant neoplasm of colon [facility] Start: 1966 Annual PCP Team [facility] Director kavin Disease Visit Annual PCP Team Chronic Disease Visit [facility] Start: 1966 BP Controlled (<130/80) BP Controlle d (<130/80) [facility] Start: 1966 Depression Screening Depression Scre ening [facility] Start: 1966 Hepatitis C screening Hepatitis C [facility] Patient Education [facility] Work Phone: Patient referral [facility] Work Phone: End: 02-15-2025 Screening colonoscopy COLONOSCOPY SCREENING Endoscopy Routine History of colonic polyps Screen for colon cancer 1 Occurrences starting 02/16/2024 until 02/15/2025 [facility] Work Phone: Comment on above: 1 Occurrences starti ng 02/16/2024 until 02/15/2025 SURGICAL PATHOLOGY [facility] Work Phone: Comment on above: Release Upon Orderin g for 1 Occurrences starting 02/19/2024, 1 completed Immunizations Immunization Date Immunization Notes Care Provider Fa cility 07-13-2020 Covid (Moderna) Dr. Selena Saul Work Phone: [facility] 06-15-2020 Kia (Moderna) Dr. Selena Saul Work Phone: [facility] 01-30-2014 influenza, seasonal, injectable Maddie Jakob POSTAL SUPERVISOR.RACE RELATIONS ADVISER Work Phone: [facility] Work Phone: 02-09-2013 influenza virus vaccine, unspecified formulation Maddie Jakob POSTAL SUPERVISOR.RACE RELATIONS ADVISER Work Phone: [facility] 06-11-2012 tetanus toxoid, reduced diphtheria toxoid, and acellular pertussis vaccine, adsorbed Maddie Jakob POSTAL SUPERVISOR.RACE RELATIONS ADVISER Work Phone: [facility] 06-11-2012 zoster vaccine, live Kimberl ey Jakob POSTAL SUPERVISOR.RACE RELATIONS ADVISER Work Phone: [facility] 02-05-2011 influenza virus vaccine, unspecified formulation Maddie Jakob POSTAL SUPERVISOR.RACE RELATIONS ADVISER Work Phone: [facility] 01-26-2010 influenza virus vaccine, unspecified formulation Maddie Jakob POSTAL SUPERVISOR.RACE RELATIONS ADVISER Work Phone: [facility] Work Phone: 01-21-2009 influenza virus vaccine, unspecified formulation Maddie Jakob POSTAL SUPERVISOR.RACE RELATIONS ADVISER Work Phone: [facility] Work Phone: 02-21-2008 influenza virus vaccine, unspecified formulation Maddie Jakob POSTAL SUPERVISOR.RACE RELATIONS ADVISER Work Phone: [facility] Work Phone: 02-20-2007 influenza virus vaccine, unspecified formulation Maddie Jakob HALL Work Phone: [facility] 07-21-2003 tetanus and diphther ia toxoids, adsorbed, preservative free, for adult use (2 Lf of tetanus toxoid and 2 Lf of diphtheria toxoid) Maddie Jakob HALL Work Phone: [facility] Payers Date Payer Category Payer Self-pay [id number] 2017 Private Health Insurance AETNA S UPPLEMENT AETNA MEDICARE SUPPLEMENT [id number] 2017-Present [phone] [address] [address] [place] [address] Indemnity [id number] 2017 Private Health Insurance [facility] [id number] 2014 Unknown [id number] 2013 Medicare MEDICARE MEDICAR E A AND B [id number] 2013-Present [phone] [address] [address] [place] [address] Medicare [id number] 2013 Medicare [id number] Unknown [id number] Unknown [id number] Unknown [id number] Unknown [id number] Unknown [id number] Unknown [id number] [id number] Unknown [id number] [id number] Unknown [id number] [id number] [id number] Unknown [id number] [id number] Unknown [id number] Unknown [id number] Social History Date Type Detail Facility Start: 02-08-2022 End: 08-17-2023 Tobacco smoking status UTIS Unknown if ever smoked [facility] Start: 1950 Sex Assigned At Male [facility] Start: 07-20-2017 End: 12-03-2024 Tobacco smoking status UTIS Never smoked tobacco [facility] Start: 07-20-2017 Tobacco use and exposure Smokeless tobacco non-user [facility] Start: 02-16-2024 End: 02-23-2024 Alcoholic beverage intake Current non-drinker of alcohol (finding) [facility] Start: 02-16-2024 End: 02-19-2024 History of Social function [facility] Start: 02-16-2024 End: 02-19-2024 Tobacco use panel [facility] National Score (1-10 0), lower number is lower risk 75 [facility] Start: 1950 [facility] Start: 07-03-2024 Sex Male (finding) [facility] Medical Equipment Procedure Code Equipment Code Equipment Origin al Text Equipment Identifier Dates GLENOSPHERE FDA Start: 12-23-2024 HUMERAL STEM FDA Start: 12-23-2024 HUMERAL SYSTEM FDA Start: 09-08-2025 LATERALIZED BASEPLATE FDA Sta rt: 12-23-2024 SCREW FDA Start: 12-23-2024 SHORT POST FDA Start: 12-23-2024 Goals Date Patient Goal Desired Activity /State Functional Status Date Assessment Result Facility 12-24-2024 Functional status Ambulates [facility] Work Phone: Mental Status Date Assessment Result Facility 12-24-2024 Cognitive function Level Of Cons ciousness Awake;Alert;Appropriate;Follow s Commands [facility] Work Phone: 12-24-2024 Cognitive function Voice/Name [facility] Work Phone: 08-17-2023 Cognitive function Voice/Name [facility] Work Phone: Clinical Notes 08-17-2006 to 12-24-2024 Note Date & Type Note Facility 12-24-2024 Discharge summary Note Date/Time December 24, 2024 11:59am [facility] Medical Records Department [address] [place] [address] Discharge Summary 12/24/24 1018 MR#: [id number] Acct: [id number] Name: MARIA E GUTHRIE Rep #:[id number] : 1950 74 From: Oneyda WAGGONER PCP: Dr. Matt Saul MD Status :ADM BAR Location: [place] [address] Providers Date of Admission: 12/23/24 Date of [...] IMPRESSION: Right shoulder reverse arthroplasty. Reading Location: [place] [address] D/C Instructions Discharge Activity: May Shower Weight [...] Saul MD; EDILSON Diaz~ Signed [facility] Work Phone: 1(183) 483-460609-09-2025 Discharge summary [facility] Medical Records Department [address] [place] [address] Discharge Summary 12/24/24 1018 MR#: [id number] Acct: [id number] Name: MARIA E GUTHRIE Rep #:[id number] : 1950 74 From: Oneyda WAGGONER PCP: Dr. Matt Saul MD Status :ADM BAR Location: [place] [address] Providers Date of Admission: 12/23/24 Date of [...] IMPRESSION: Right shoulder reverse arthroplasty. Reading Location: [place] [address] D/C Instructions Discharge Activity: May Shower Weight [...] Saul MD; EDILSON Diaz~ Signed [facility]09-09-2025 Progress note Author Major Carrillo [facility] Note Date/Time December 24, 2024 9:42am [facility] Medical Records Department [address] [place] [address] Progress Note - Hospitalist 12/24/24913 MR#: [id number] Acct: [id number] Name: MARIA E GUTHRIE Rep #:[id number] : 1950 74 From: Major mathews MD PCP: Dr. Matt Saul MD Status :ADM BAR Location: [place] [id number] Subjective Subjective Doing well, pain is controlled [...] IMPRESSION: Right shoulder reverse arthroplasty. Reading Location: [place] [address] Physical Exam Narrative General: Alert, Oriented x3, [...] with questions Charges/Coding Visit Charges Inpatient E&M: 81540 Subs Hosp L2 12/24/24 0942 <Electronically signed by Major Carrillo MD> Cosigner Signature (if applicable): CC: ~ Signed ADDENDUM by Dr. Major Carrillo MD on 12/24/24 at 0942 Visit Charges Office Visits / Consults: 59571 OV L3 Est 20min 12/24/24 0942<Electronically signed by Major Carrillo MD> Cosigner Signature (if applicable): cc: ~* Signed [facility] Work Phone: 1(643) 957-704009-09-2025 [facility] Medical Records Department [address] [place] [address] Discharge Summary 12/24/24 1018 MR#: [id number] Acct: [id number] Name: MARIA E GUTHRIE Rep #: [id number] : 1950 74 From: Oneyda WAGGONER PCP: Dr. Matt Saul MD Status:ADM BAR Location: [address] Providers Date of Admission: 12/23/24 Date [...] Creatinine 1.01 (more content not included)...[facility]09-09-2025 Progress note [facility] Medical Records Department [address] [place] [address] Progress Note - Hospitalist 12/24/24913 MR#: [id number] Acct: [id number] Name: MARIA E GUTHRIE Rep #:[id number] : 1950 74 From: Major mathews MD PCP: Dr. Matt Saul MD Status :ADM BAR Location: [place] [address] Subjective Subjective Doing well, pain is controlled [...] IMPRESSION: Right shoulder reverse arthroplasty. Reading Location: [place] [address] Physical Exam Narrative General: Alert, Oriented x3, [...] with questions Charges/Coding Visit Charges Inpatient E&M: 72163 Subs Hosp L2 12/24/24 0942 Cosigner Signature (if applicable): CC: ~ Signed ADDENDUM by Dr. Major Carrillo MD on 12/24/24 at 0942 Visit Charges Office Visits / Consults: 31023 OV L3 Est 20min 12/24/24 0942 Cosigner Signature (if applicable): cc: ~* Signed [facility]09-08-2025 Consult note Author Hansel Sultana [facility] Note Date/Time December 23, 2024 8:16pm [facility] Medical Records Department [address] [place] [address] Consultation - Hospitalist 12/23/24 1608 MR#: [id number] Acct: [id number] Name: MARIA E GUTHRIE Rep #:[id number] : 1950 74 From: Hansel foreman DO PCP: Dr. Matt Saul MD Status :ADM BAR Location: [place] [address] Assessment & Plan Assessment/Plan (1) Right rotator cuff tear arthropathy: PLAN: Plan Patient is a 74-year-old male who presented to [facility] on 12/23/2024 for planned right shoulder procedure. [...] 74 M who presented to [facility] on 12/23/2024 for planned orthopedic procedure. Medicine [...] No other acute concerns at this time. [facility] Medical History Wears hearing aid Wears glasses Wears partial dentures History of steroid therapy Arthritis Dietary restriction Non-smoker History of echocardiogram History of stress test Cardiology follow-up encounter Diabetes Myocardial infarct Hypertension Osteoarthritis Gout Atherosclerosis of coronary artery of [place] heart without angina pectoris Hyperlipidemia Home Medications [...] Type Severity Reaction Status Date / Time Wzpqfgg-WOQ-OdH Reductase AdvReac Mild myalgias Verified 12/23/24 10:26 Inhibitor (Ldoyfdc-Nqp-Mob Reductase Inhibitor) Family History Brother CAD (coronary [...] IMPRESSION: Right shoulder reverse arthroplasty. Reading Location: [place] [address] Charges/Coding Visit Charges Inpatient E&M: 85280 Subs Hosp L2 12/23/242015 <Electronically signed by Hansel Sultana DO> Cosigner Signature (if applicable): CC: Dr. Matt Saul MD; Dr. Major Yi DO~ Signed [facility] Work Phone: 1(836) 691-404609-08-2025 Consult note [facility] Medical Records Department [address] [place] [address] Consultation - Hospitalist 12/23/24 1608 MR#: [id number] Acct: [id number] Name: MARIA E GUTHRIE Rep #:[id number] : 1950 74 From: Hansel foreman DO PCP: Dr. Matt Saul MD Status :ADM BAR Location: [place] [address] Assessment & Plan Assessment/Plan (1) Right rotator cuff tear arthropathy: PLAN: Plan Patient is a 74-year-old male who presented to [facility] on 12/23/2024 for planned right shoulder procedure. [...] 74 M who presented to [facility] on 12/23/2024 for planned orthopedic procedure. Medicine [...] No other acute concerns at this time. [facility] Medical History Wears hearing aid Wears glasses Wears partial dentures History of steroid therapy Arthritis Dietary restriction Non-smoker History of echocardiogram History of stress test Cardiology follow-up encounter Diabetes Myocardial infarct Hypertension Osteoarthritis Gout Atherosclerosis of coronary artery of [place] heart without angina pectoris Hyperlipidemia Home Medications [...] Type Severity Reaction Status Date / Time Jounxep-QYR-BxH Reductase AdvReac Mild myalgias Verified 12/23/24 10:26 Inhibitor (Ueuzlch-Lhc-Hht Reductase Inhibitor) Family History Brother CAD (coronary [...] IMPRESSION: Right shoulder reverse arthroplasty. Reading Location: [place] [address] Charges/Coding Visit Charges Inpatient E&M: 85752 Subs Hosp L2 12/23/242015 Cosigner Signature (if applicable): CC: Dr. Matt Saul MD; Dr. Major Yi, DO~ Signed [facility]09-08-2025 Consult note Author Osei Lubin [facility] Note Date/Time December 23, 2024 2:33pm [facility] Medical Records Department [address] [place] [address] Anesthesia Postop Eval II 12/23/24 1433 MR#: [id number] Acct: [id number] Name: MARIA E GUTHRIE Rep #:[id number] : 1950 74 From: Osei Choudhury PCP: Dr. Matt Saul MD Status :ADM BAR Y Race: C Location: [place] [address] Anesthesia Postop Eval I Sum Postop Eval Completion status Anesthesia document: Postop Eval 1 completed: Yes Anesthesia Postop Eval I Summary Anesthesia Postop Eval I Summary: Anesthesia Postop Eval I: Assessment Summary Airway patent Yes 12/23/24 13:32 TORCH [email or web address].CSIR Spontaneous unlabored Yes 12/23/24 13:32 TORCH SHEARER.CSIR respirations Mental status nausea No 12/23/24 13:32 TORCH SHEARER.CSIR Vomiting No 12/23/24 13:32 TORCH SHEARER.CSIR Anesthesia Postop Eval I: Fluid Summary Crystalloid volume administer 1,300 12/23/24 13:32 TORCH SHEARER.CSIR (ml) Colloids volume administered ( ml) Blood Product volume administered (ml) Total IV fluid infused 1,300 12/23/24 13:32 TORCH SHEARER.CSIR Anesthesia Postop Eval I: Summary Notes Anesthesia Complication No 12/23/24 13:32 TORCH SHEARER.CSIR Anesthesia Complication Comment: Post-operative progress note Anesthesia: Postop Eval II Evaluation Mental status: Awake and Calm Pain Level: 1 nausea: No Vomiting: No Complications Anesthesia Complication: No 12/23/24 1433 <Electronically signed by Osei Lubin MD> Date _ Osei Lubin MD Cosigner Signature: Date CC: ~ Signed [facility] Work Phone: 1(669) 979-833309-08-2025 Consult note Author Priscilla Willard [facility] Note Date/Time December 23, 2024 1:33pm [facility] Medical Records Department [address] [place] [address] Anesthesia Postop Eval I 12/23/24 1332 MR#: [id number] Acct: [id number] Name: MARIA E GUTHRIE Rep #:[id number] : 1950 74 From: Priscilla Willard CRNA PCP: Dr. Matt Saul MD Status :REG SDC Y Race: C Location: [place] [address] Anesthesia: Postop Eval I Current Vital Signs [...] Priscilla cruz CRNA> Date _ Priscilla Willard TORCH SHEARER Cosigner Signature: Date CC: ~ Signed [facility] Work Phone: 1(569) 576-649309-08-2025 Evaluation note* Diagnosis Onset Date Resolution Status Admit Date Right rotator cuff tear arthropathy acute December 23 1:06pm Status post reverse total arthroplasty of right shoulder acute S epte2024 1:06pm [facility] Work Phone: 1(868) 133-935409-08-2025 Evaluation note* Diagnosis Onset Date Resolution Status Admit Date Right rotator cuff tear arthropathy inactive Maureen 8th, 2 025 1:06pm Status post reverse total arthroplasty of right shoulder inactive December 23 1:06pm [facility] Work Phone: 1(529) 337-750609-08-2025 Consult note [facility] Medical Records Department [address] [place] [address] Anesthesia Postop Eval II 12/23/24 1433 MR#: [id number] Acct: [id number] Name: MARIA E GUTHRIE Rep #:[id number] : 1950 74 From: Osei Choudhury PCP: Dr. Matt Saul MD Status :ADM BAR Y Race: C Location: [address] Anesthesia Postop Eval I Sum Postop Eval Completion status Anesthesia document: Postop Eval 1 completed: Yes Anesthesia Postop Eval I Summary Anesthesia Postop Eval I Summary: Anesthesia Postop Eval I: Assessment Summary Airway patent Yes 12/23/24 13:32 TORCH SHEARER.CSIR Spontaneous unlabored Yes 12/23/24 13:32 TORCH SHEARER.CSIR respirations Mental status nausea No 12/23/24 13:32 TORCH SHEARER.CSIR Vomiting No 12/23/24 13:32 TORCH SHEARER.CSIR Anesthesia Postop Eval I: Fluid Summary Crystalloid volume administer 1,300 12/23/24 13:32 TORCH SHEARER.CSIR (ml) Colloids volume administered ( ml) Blood Product volume administered (ml) Total IV fluid infused 1,300 12/23/24 13:32 TORCH SHEARER.CSIR Anesthesia Postop Eval I: Summary Notes Anesthesia Complication No 12/23/24 13:32 TORCH SHEARER.CSIR Anesthesia Complication Comment: Post-operative progress note Anesthesia: Postop Eval II Evaluation Mental status: Awake and Calm Pain Level: 1 nausea: No Vomiting: No Complications Anesthesia Complication: No 12/23/24 1433 MD> Date _ Osei Lubin MD Cosigner Signature: Date CC: ~ Signed [facility]09-08-2025 Radiology Diagnostic study note [facility] Imaging Services [address] [place] [address] Shoulder min 2 Views MR#: [id number] Acct: [id number] Name: MARIA E GUTHRIE Rep #: [id number] : 1950 M 74 From: Zhou Suárez MD PCP: Dr. Matt Saul MD Status: REG [facility] Study:Shoulder min 2 Views Date of Exam: 12/23/24 Exam# [id number] Ordering Dr: Major Yi DO PROCEDURE: SHOULDER [...] IMPRESSION: Right shoulder reverse arthroplasty. Reading Location: [place] [address] CC: Dr. Matt Saul MD; Dr. Major Yi DO ~ Tmh Teacher: Signed [facility]09-08-2025 Consult note [facility] Medical Records Department [address] [place] [address] Anesthesia Postop Eval I 12/23/24 1332 MR#: [id number] Acct: [id number] Name: MARIA E GUTHRIE Rep #:[id number] : 1950 74 From: Priscilla Willard CRNA PCP: Dr. Matt Saul MD Status :[facility] Y Race: C Location: [place] [address] Anesthesia: Postop Eval I Current Vital Signs Temperature: 97 F Pulse Rate: 89 Blood Pressure: 145/87 Respiratory Rate: 18 Pulse Ox: 93 Assessment Airway patent: Yes Spontaneous unlabored respirations: Yes nausea: No Vomiting: No Anesthesia Complication: No Fluid Hydration Crystalloid volume administer (ml): 1,300 Total IV fluid infused: 1,300 Progress Note Anesthesia document: Postop Eval 1 completed: Yes 12/23/24 1333 a TORCH SHEARER> Date _ Priscilla Willard TORCH SHEARER Cosigner Signature: Date CC: ~ Signed [facility]09-08-2025 Procedure note [facility] Medical Records Department [address] [facility] [place] [address] Operative Report 12/23/24 1322 MR#: [id number] Acct: [id number] Name: MARIA E GUTHRIE Rep #:[id number] : 1950 74 From: Major lake DO PCP: Dr. Matt Saul MD Status :[facility] Location: [place] [address] Operative Report (Standard) Operative Information Date of Procedure: 12/23/24 Pre-Operative Diagnosis: Right shoulder rotator cuff tear arthropathy Post-Operative Diagnosis: Right shoulder rotator cuff tear arthropathy Surgery/Procedure Performed: Right reverse total shoulder arthroplasty budget officer: Yes Data Entry Associate: Oneyda Solano Tasks completed by welder first class: Opening & closing, Implanting device, Hemostasis: Electrocautery [...] of surgery: Patient arrived to [facility] morning of the procedure and was greeted [...] positioned in the beachchair position. A well-padded preschool head teacher was applied. The nonoperative extremity was [...] appropriate depth with good press-fit purchase. A Huntington was used to confirm depth. Cortical screws [...] operative suite. He was transferred to the rgregory and subsequently to PACU in stable condition. Need for skilled web marketing assistant: Oneyda Solano PA-C was critical to the outcome of thecase. During the course of the procedure the physician web marketing assistant played a vitalrole. Her intimate knowledge [...] Dr. Major Yi, DO~ Signed [facility]09-08-2025 Consult note Author Osei Lubin [facility] Note Date/Time December 23, 2024 10:57am [facility] Medical Records Department [address] [place] [address] Pre-Anesthesia Evaluation 12/23/24 1052 MR#: [id number] Acct: [id number] Name: MARIA E GUTHRIE Rep #:[id number] : 1950 74 From: Osei Choudhury PCP: Dr. Matt Saul MD Status :REG [facility] Y Race: C Location: [place] [address] ASA Classification* ASA Classification ASA Classification: 2 [...] SHOULDER ARTHROPLASTY Anesthesia History Anesthesia History - tariff counsel: Anesthesia History - tariff counsel Hx Hospitalization No 12/03/24 10:59 Any Problems [...] take am of surgery PONV PONV - tariff counsel: PONV - tariff counsel Female No 12/03/24 10:59 HX of Motion [...] 12/23/24 10:31 Respiratory Assessment Respiratory Assessment - tariff counsel: Respiratory Tract Infection Hx - tariff counsel Hx Respiratory Tract Infection No 12/03/24 10:59 STOP Sleep Apnea STOP Sleep Apnea - tariff counsel: STOP Sleep Apnea - tariff counsel Hx Hypertension Yes: CONTROLLED WITH MED 12/03/24 [...] Tobacco Use History Tobacco Use History - tariff counsel: Tobacco Use History - tariff counsel Tobacco Use Smoking Status Never smoker 12/03/24 10:59 Hx Tobacco Use No 12/03/24 10:59 Years Smoking Packs Smoked per Day Smoking Cessation Date was within the last 15 years Hx Smoking Cessation Date Hx Smoking Cessation Counseling Hematologic Medial History Hematologic Hx - tariff counsel: Hematologic Medical Hx - training and documentation specialist Hx of Blood Transfusion No 12/03/24 10:59 [...] confused, unrespo /Reproduction History /Reproductive History - tariff counsel: /Reproductive Hx- tariff counsel Hx Now No 12/03/24 10:59 Gestational Age [...] Osteoarthritis Gout Atherosclerosis of coronary artery of sw[place] heart without angina pectoris Hyperlipidemia Home Medications [...] Type Severity Reaction Status Date / Time Ifsabek-KIJ-EjB Reductase AdvReac Mild myalgias Verified 12/23/24 10:26 Inhibitor (Mxydulf-Ijz-Hmm Reductase Inhibitor) Family History Brother CAD (coronary [...] Signature: Date CC: ~ Signed [facility] Work Phone: 1(344) 588-415109-08-2025 Consult note [facility] Medical Records Department [address] [place] [address] Pre-Anesthesia Evaluation 12/23/24 1052 MR#: [id number] Acct: [id number] Name: MARIA E GUTHRIE Rep #:[id number] : 1950 74 From: Osei Choudhury PCP: Dr. Matt Saul MD Status :REG SDC Y Race: C Location: [place] [address] ASA Classification* ASA Classification ASA Classification: 2 [...] SHOULDER ARTHROPLASTY Anesthesia History Anesthesia History - tariff counsel: Anesthesia History - tariff counsel Hx Hospitalization No 12/03/24 10:59 Any Problems [...] take am of surgery PONV PONV - tariff counsel: PONV - tariff counsel Female No 12/03/24 10:59 HX of Motion [...] 12/23/24 10:31 Respiratory Assessment Respiratory Assessment - tariff counsel: Respiratory Tract Infection Hx - tariff counsel Hx Respiratory Tract Infection No 12/03/24 10:59 STOP Sleep Apnea STOP Sleep Apnea - tariff counsel: STOP Sleep Apnea - tariff counsel Hx Hypertension Yes: CONTROLLED WITH MED 12/03/24 [...] Tobacco Use History Tobacco Use History - tariff counsel: Tobacco Use History - tariff counsel Tobacco Use Smoking Status Never smoker 12/03/24 10:59 Hx Tobacco Use No 12/03/24 10:59 Years Smoking Packs Smoked per Day Smoking Cessation Date was within the last 15 years Hx Smoking Cessation Date Hx Smoking Cessation Counseling Hematologic Medial History Hematologic Hx - tariff counsel: Hematologic Medical Hx - training and documentation specialist Hx of Blood Transfusion No 12/03/24 10:59 [...] confused, unrespo /Reproduction History /Reproductive History - tariff counsel: /Reproductive Hx- tariff counsel Hx Now No 12/03/24 10:59 Gestational Age [...] Osteoarthritis Gout Atherosclerosis of coronary artery of sw[place] heart without angina pectoris Hyperlipidemia Home Medications [...] Type Severity Reaction Status Date / Time Lqbjuyf-YID-EfJ Reductase AdvReac Mild myalgias Verified 12/23/24 10:26 Inhibitor (Birkdid-Mwp-Elb Reductase Inhibitor) Family History Brother CAD (coronary [...] Signature: Date CC: ~ Signed [facility]08-14-2025 Radiology Diagnostic study note [facility] Imaging Services [address] [place] [address] Extremity Upper without Contra MR#: [id number] Acct: [id number] Name: MARIA E GUTHRIE Rep #: [id number] : 1950 M 74 From: Sean Garcia MD PCP: Dr. Matt Saul MD Status: REG CLI Study:Extremity Upper without Contra Date of Exam: 11/26/24 Exam# [id number] Ordering Dr: Major Yi DO PROCEDURE: EXTREMITY [...] Saul MD; Dr. Major Yi DO ~ Tmh Teacher: Signed [facility]03-04-2025 Radiology Diagnostic study note [facility] Imaging Services [address] [place] [address] [id number] Ankle min 3 Views MR#: [id number] Acct: [id number] Name: MARIA E GUTHRIE Rep #: [id number] : 1950 M 74 From: Shannon Joshua MD PCP: Dr. Matt Saul MD Status: REG CLI Study:Ankle min 3 Views Date of Exam: Exam# [id number] Ordering Dr: Luna Saul MD EXAM: XR [...] evaluation with CT is recommended. Reading [facility] CC: Dr. Matt Saul MD ~ Tmh Teacher: Signed [facility]03-04-2025 Radiology Diagnostic study note [facility] Imaging Services [address] [place], [place] [address] Foot min 3 Views MR#: [id number] Acct: [id number] Name: MARIA E GUTHRIE Rep #: [id number] : 1950 M 74 From: Laurent Alva MD PCP: Dr. Matt Saul MD Status: REG CLI Study:Foot min 3 Views Date of Exam: 08/09 Exam# [id number] Ordering Dr: Luna Saul MD PROCEDURE: FOOT [...] suggestive of gout. Calcaneal spurs. Reading Location: [id number] CC: Dr. Matt Saul MD ~ Tmh Teacher: Signed [facility]12-19-2024 Evaluation note* Diagnosis Onset Date Resolution Status Admit Date Essential hypertension chronic De cember 2023 2:13pm History of coronary artery stent placement August 17, 2006 chronic April 04, 2 024 2:13pm Hyperlipidemia chronic March 172023 2:13pm [facility] Work Phone: [phone]) 684-442311-11-2024 History of Present illness Narrative* Maddie Bernstein APRN.RACE RELATIONS ADVISER - 02/26/2024 1:00 PM EST FOLLOW UP VISIT - ENDOSCOPY Maria E Guthrie 1950 [id number] REFERRING PHYSICIAN: Matt Saul (Rashida) [address] [facility] [address] Maria E Guthrie is a patient I [...] as needed for worsening/no improvement. Maddie Bernstein APRN.RACE RELATIONS ADVISER documented [facility]24 NoteHNO ID: [id number] Author: MADDIE BERNSTEIN APRN.RACE RELATIONS ADVISER Service: ? Author Type: Nurse Practitioner Type: Progress Notes Filed: 02/26/2024 13:03 Note Text: FOLLOW UP VISIT - ENDOSCOPY Maria E Guthrie 1950 [id number] REFERRING PHYSICIAN: Matt Saul (Rashida) [address] [place] [address] Maria E Guthrie is a patient I [...] as needed for worsening/no improvement. Maddie Bernstein APRN.[facility]11-04-2024 Note* Discharge Instr - Nursing - Estelle Bird RN - 02/19/2024 12:17 PM EST The patient received a copy of Colonoscopy discharge instructions that contain information for how to contact the physician who performed the procedure and when to seek medical care. [facility]11-04-2024 Miscellaneous Notes* Discharge Instr - Nursing - Estelle Bird RN - 02/19/2024 12:17 PM EST The patient received a copy of Colonoscopy discharge instructions that contain information for how to contact the physician who performed the procedure and when to seek medical care. documented in this encounterFostoria City Hospital11-04-2024 NoteHNO ID: [id number] Author: ESTELLE BIRD RN Service: ? Author Type: Registered Nurse Type: Nursing Progress Note Filed: 02/19/2024 12:15 Note Text: Abdomen soft non-distended. Will continue to monitor.[facility] 02-19-2024 Nurse Note* Estelle Bird RN - 02/19/2024 12:00 PM EST Abdomen soft non-distended. Will continue to monitor. [facility]11-04-[facility] Nurse Note* Estelle Bird RN - 02/19/2024 12:00 PM EST Abdomen soft non-distended. Will continue to monitor. documented in this encounterFostoria City Hospital11-04-2024 History and physical note * Demetri [...] Last colonoscopy 06/[address] Park at [facility]. Sedation:Midazolam 5 mg IV, Fentanyl 100 micrograms [...] (FLONASE) 50 mcg/actuation nasal spray Use 1 Ashby in the nose once daily. cyanocobalamin (VITAMIN [...] entered by the nurse and reviewed by wa Nursing Notes: Francisca Spann RN 02/16/2024 2:03 [...] edited and updated as necessary. Maddie Bernstein APRN.RACE RELATIONS ADVISER UPDATED HISTORY AND PHYSICAL EXAMINATION SERVICE DATE: 02/19/2024 SERVICE TIME: 10:53 AM SENSITIVE EXAMINATION CONSENT: The sensitive examination was discussed with the Patient or Patient's Authorized Mental Health Technician. Asapplicable, any other physician, advance practice provider, medical student, or other health professional student that will be observing or involved in the sensitive examination for educational or training purposes was discussed with the Patient or Authorized Mental Health Technician. The Patient or Authorized Mental Health Technician has agreed to proceed with the sensitive [...] DATE: February 19, 2024 TIME: 10:53 AM [facility]-04-[facility] History and physical note* Demetri Lord [...] Last colonoscopy 06/[address] Park at [facility]. Sedation:Midazolam 5 mg IV, Fentanyl 100 micrograms [...] (FLONASE) 50 mcg/actuation nasal spray Use 1 Ashby in the nose once daily. cyanocobalamin (VITAMIN [...] entered by the nurse and reviewed by wa Nursing Notes: Francisca Spann RN 02/16/2024 2:03 [...] discussed with the Patient or Patient's Authorized Mental Health Technician. Asapplicable, any other physician, advance practice provider, medical student, or other health professional student that will be observing or involved in the sensitive examination for educational or training purposes was discussed with the Patient or Authorized Mental Health Technician. The Patient or Authorized Mental Health Technician has agreed to proceed with the sensitive [...] 2024 TIME: 10:53 AM documented in this encounterFostoria City Hospital11-01-2024 Telephone encounter Note * Telephone Encounter - Melanie Marcelino - 02/16/2024 2:34 PM EDT 02-19-2024 Colonoscopy concepción [facility] Joyytejolly prep, nurse went over instructions yudy has direct number to contact for any questions or concerns., Instructed patient to arrive at 1045 in ASC [facility]11-01-2024 Miscellaneous Notes* Telephone Encounter - Melanie Marcelino - 02/16/2024 2:34 PM EDT 02-19-2024 Colonoscopy concepción ASC Joyytejolly prep, nurse went over instructions yudy has direct number to contact for any questions or concerns., Instructed patient to arrive at 1045 in ASC documented in this encounterFostoria [facility] Hospital11-01-2024 Nurse Note* Francisca Spann, RN - [...] N/A Last Colonoscopy: 07/10/2020 Francisca Spann RN [facility]11-01-[facility]24 History of Present illness Narrative* Maddie Bernstein APRN.RACE RELATIONS ADVISER - 02/16/2024 2:00 PM EDT HISTORY AND [...] Last colonoscopy 06/[address] Park at [facility]. Sedation:Midazolam 5 mg IV, Fentanyl 100 micrograms [...] (FLONASE) 50 mcg/actuation nasal spray Use 1 Ashby in the nose once daily. cyanocobalamin (VITAMIN [...] entered by the nurse and reviewed by wa Nursing Notes: Francisca Spann RN 02/16/2024 2:03 [...] necessary. Maddie Bernstein APRN.BALJIT documented in this encounterFostoria City Hospital11-01-2024 NoteHNO ID: [id number] Author: MADDIE BERNSTEIN APRN.CNP Service: ? Author [...] Last colonoscopy 06/[address] Park at [facility]. Sedation:Midazolam 5 mg IV, Fentanyl 100 micrograms [...] (FLONASE) 50 mcg/actuation nasal spray Use 1 Ashby in the nose once daily. cyanocobalamin (VITAMIN [...] entered by the nurse and reviewed by wa Nursing Notes: Francisca Spann RN 02/16/2024 2:03 [...] denies ulcers, denies vomiting, (more content not included)...[facility]11-01-2024 Nurse Note* Francisca Spann RN [...] 07/10/2020 Francisca Spann RN documented in this encounterFostoria City Hospital05-02-2024 Discharge summary Author Joe Joshua [facility] August 18, 2023 12:45am Note Date/Time August 17, 2023 9:52pm [facility] Medical Records Department [address] [place] [address] Emergency Department Summary 08/17/23 MR#: [id number] Acct: [id number] Name: MARIA E GUTHRIE Rep #:[id number] : 1950 73 From: Joe Sage PCP: Dr. Matt Saul MD Status :REG ER Location: ED HPI History of Present Illness Chief Complaint: Chest Pain Informant: patient Narrative Narrative: Intermittent chest pain initially started overnight twinges in his left chest. This evening it returned having intermittent symptoms. He had 1 stent placed [id number]. Diabetes hypertension hyperlipidemia. No cardiac dysrhythmia history. On baby aspirin. No cough. He had traveled yesterday 8-hour drive and return. Noticed leg swelling no leg cramping no dyspnea. Prior Similar Symptoms: No CVD Risk Factors: Positive for Hypertension, Diabetes and Hypercholesterolemia PE Risk Factors: Positive for Recent [facility] Medical History (Updated 08/18/23 @ 00:[address] Joe Joshua DO) Atherosclerosis of coronary artery of swin[place] heart without angina pectoris Chest pain Coronary [...] DAILY 02/08/22 [History Last Taken Unknown] omega 6-lad-fec-fish oil 300 mg-1,000 mg capsule (Fish Oil) 2 cap PO BID 02/08/22 [History Last Taken Unknown] allopurinol 300 mg tablet 300 mg PO DAILY 02/08/23 [History Last Taken Unknown] hydrochlorothiazide 25 mg tablet 25 mg PO DAILY 02/08/23 [History Last Taken Unknown] Allergy/AdvReac Type Severity Reaction Status Date / Time Aoydkwa-ZLJ-AtO Reductase AdvReac Mild myalgias Verified 08/17/23 21:04 Inhibitor [Crdpudq-Vos-Pdd Reductase Inhibitor] Family History Brother CAD (coronary [...] it in the room however on the environmental monitoring specialist did not know any rhythm changes. Cardiac [...] clinician: N/A This note was generated with [employer] dictation software. It may contain incorrectwords, spelling, and punctuation that were not noted in checking the note beforesigning. Lab Data Attestation: I reviewed the patient's lab results. Labs: Laboratory Results - last 24 hr 08/17/23 08/18/23 22:05 00:13 WBC 4.1 L RBC 5.22 Hgb 15.4 Hct 45.4 MCV 87.0 MCH 29.5 MCHC 33.9 RDW Std Deviation 40.8 RDW Coeff of Dsetiny 13.0 Plt Count 147 L MPV 10.7 Immature Gran % (Auto) 0.000 Neut % (Auto) 38.9 L Lymph % (Auto) 49.8 H Vigo % (Auto) 10.1 H Eos % (Auto) [...] mg tablet 100 mg PO DAILY omega 0-klc-xep-fish oil [Fish Oil] 300-1,000 mg capsule 2 [...] muscle); rotate sites Pt gets from the [place] Primary Care Provider: Matt Saul Referrals: Matt [...] your Primary Care Provider. Call [facility] ([phone]) or report to the closest Emergency Room. Call 911 if necessary. 08/18/23 0045 <Electronically signed by Joe Sage> Cosigner Signature (if applicable): CC: Dr. Matt Saul MD ~ Signed [facility] Work Phone: [phone]) [phone] Evaluation note* Diagnosis Onset Date Resolution Status Essential hypertension chron ic History of coronary artery stent placement August 17 chronic Hyperlipidemia chronic [facility] Work Phone: Evaluation note* Diagnosis Onset Date Resolution Status Influenza due to influenza virus, type A, human acute [facility] Work Phone: Evaluation note* Diagnosis History of colonic polyps- Primary Personal history of colonic polyps Screen for colon cancer Special screening for malignant neoplasms, colon documented in this encounter [facility]* Diagnosis History of colonic polyps Personal history of colonic polyps Screen for colon cancer Special screening for malignant neoplasms, colon documented in this encounter [facility]* Diagnosis History of colonic polyps- Primary Personal history of colonic polyps documented in this encounter [facility] noteNo assessment information availableWooMetroHealth Main Campus Medical Center Work Phone: Hospital Discharge instructions Additional Instructions Cardiac workup was negative. Potassium 3.1 orally replaced. Follow-up with your doctor. If symptoms recur and worsens, return to the ED for reevaluation.[facility] Work Phone: Hospital Discharge instructionsAdditional Instructions Date of Discharge: [facility]/24[facility] Work Phone: Reason for referral (narrative)* Outpatient Procedure (Routine) - Authorized Specialty Diagnoses / Procedures Referred By Shauna ross Referred To Contact [facility] Diagnoses History of colonic polyps Screen for colon cancer Procedures COLONOSCOPY SCREENING COLONOSCOPY FLX DX W/COLLJ SPEC WHEN Maddie Lozada APRN.CNP [address] [place] [address] [facility] [address] [address] Referral ID Status Reason Start Date Expiration Date Visits Requested Visits Authorized [id number] Authorized Auto-Generat ed Referral 02/16/2024 02/15/2025 1 1 [facility] for referral (narrative)* Outpatient Procedure (Routine) - Closed Specialty Diagnoses / Procedures Referred By Shauna ross Referred To Contact [facility]EASE [place] Diagnoses History of colonic polyps Screen for colon cancer Procedures COLONOSCOPY SCREENING COLONOSCOPY FLX DX W/COLLJ SPEC WHEN Maddie Lozada APRN.CNP [address] [place] [address] [facility] Disease [place] [id number] Referral ID Status Reason Start Date Expiration Date V isits Requested Visits Authorized [id number] Closed Auto-Generate d Referral 02/16/2024 02/15/2025 1 1 [facility] for referral (narrative)No reason for referral information availableWBarney Children's [facility] Work Phone: Reason for visit Narrative* Outpatient Procedure (Routine) - Closed Specialty Diagnoses / Procedures Referred By Shauna ross Referred To Contact [facility] Diagnoses History of colonic polyps Screen for colon cancer Procedures COLONOSCOPY SCREENING COLONOSCOPY FLX DX W/COLLJ SPEC WHEN Maddie Lozada, JENNIFER.RACE RELATIONS ADVISER [address] [place] [address] [facility] [place] [address] Referral ID Status Reason Start Date Expiration Date V isits Requested Visits Authorized [id number] Closed Auto-Generate d Referral 02/16/2024 02/15/2025 1 1 [facility] Chief Complaint and Reason for Visit [...] Yes December 29, 2014 1:26pm Power of Furnace Repairer Helper Yes December 1:26pm Advance Directive Response Recorded Date/ Time Name of Medical Power of Furnace Repairer Helper darby feliciano n August 17, 2023 9:53pm Living Will Yes August 17, 2023 9: 53pm Power of Furnace Repairer Helper Yes August 17, 2023 9:53pm Advance Directive Response Recorded Date/ Time Living Will Yes December 29, 2014 2:26pm Power of Furnace Repairer Helper Yes December 2:26pm Advance Directive Response Recorded Date/ Time Do you have a Healthcare Power of Furnace Repairer Helper? Yes December 23, 2024 2:44pm Summary Purpose [...] Primary Care Provider Activ e Bill Murdock CHIEF CATALYST OPERATOR, CHIEF CATALYST OPERATOR-C Attending Provider Active Team Status: Active Member Role Status Dates Dr. Armond Saul MD Primary Care Provider Activ e Self Referred Attending Provider Active Team Status: Inactive Member Role Status Dates Dr. Armond Saul MD Primary Care Provider Activ e Bill Murdock CHIEF CATALYST OPERATOR, CHIEF CATALYST OPERATOR-C Attending Provider Active Team Status: Inactive Member Role Status Dates Dr. Armond Saul MD Primary Care Provider, Refe rring Provider Active Xiomara Renee CHIEF CATALYST OPERATOR, CHIEF CATALYST OPERATOR-C Attending Provider Active Team Status: Active [...] Dr. Joe Joshua DO Emergency Provider Active Last Remodeler Repairer Relationship Specialty Start Date End Date Matt Saul MD [address] [place], [place] [address] PCP - General Family Medicine 06/30/20 Last Remodeler Repairer Relationship Specialty Start Date End Date Matt Saul MD [address] [place], [place] [address] PCP - General Family Medicine 06/30/20 Last Remodeler Repairer Relationship Specialty Start Date End Date Matt Saul MD [address] [place], [place] [address] PCP - General Family Medicine 06/30/20 Last Remodeler Repairer Relationship Specialty Start Date End Date Matt Saul MD [address] [place], [place] [id number] PCP - General Family Medicine 06/30/20 Team [...] Active Start: December 24, 2024 Dr. Major iY DO Referring Provider Active Start: December 24, [...] or prosecute any alcohol or drug abuse patient.[facility] HospitalIn the event this information is protected by the Federal Confidentiality of Alcohol and Drug Abuse Patient Records regulations: The Federal rules restrict any use of the information to criminally investigate or prosecute any alcohol or drug abuse patient.[facility] HospitalIn the event this information is protected by the Federal Confidentiality of Alcohol and Drug Abuse Patient Records regulations: The Federal rules restrict any use of the information to criminally investigate or prosecute any alcohol or drug abuse patient.[facility] HospitalIn the event this information is protected by the Federal Confidentiality of Alcohol and Drug Abuse Patient Records regulations: The Federal rules restrict any use of the information to criminally investigate or prosecute any alcohol or drug abuse patient.[facility] Reason for Visit (unrecogniz ed section and content) Reason Comments Consult colonoscopy Reason Comments Follow Up Review colonoscopy r esults. Reason Comments 02-19-2024 Colonscoopy (unrecognized sect ion and content) No Status Records FoundNo Status Records Found INFORMATION SOURCE (unrecogn ized section and content) DATE CREATED AUTHOR 03/19/2024 [facility] DATE CREATED AUTHOR AUTHOR'S ORGANIZ ATION 02/28/2025 [facility] FOR RECORDS PERTAINING TO PATIENTS WHO [...] BE BASED ON THE PRIMARY CLINICAL RECORDS. [employer] provides no warranty or guarantee of the accuracy or completeness of information in this document.
[2025-04-12 13:15] VITALS: BP 120/78; PULSE 72; RESP 18; TEMP 36.6; O2SAT 96
[2025-04-12] MEDS: Ceftriaxone 2 GM in 0.9% Normal Saline (50mL MB+) 50 ML IV (13:38)
== END 2025-04-12 14:55 | disposition home or self-care (01) ==
LOC: MEDOUTP 13:00 → PCU 13:01
PROVIDERS: PCP Family Medicine; Referring Provider Internal Medicine Infectious Disease; Visit Provider Internal Medicine Infectious Disease
DX: T84.53XA Infection and inflammatory reaction due to internal right knee prosthesis, initial encounter (principal)
CPT/HCPCS: 96365; J0696

== ENCOUNTER 2025-04-13 12:35 | Outpatient (CLI) | payer MEDICARE, OTHER, SELFPAY ==
--- OUTSIDE RECORDS SUMMARY | 2025-04-13 12:38 | XMS RPT_ITS | CCD ---
Author Organization [facility] Care Team Providers Care Cat Operator Name Role Phone FERMIN Blunt, Bailey Keller Unavailable Georgette Oliva Unavailable Unavailable Georgette Tabor Unavailable Unavailable Dr. Armond Saul Primary Care Provider Dr. Armond Saul Referring Provider Dr. Nathan Purcell Attending Provider [phone] Doyle Sandoval Attending Provider [phone] Collette MEAT CURER, MEAT CURER-Luna Grant Attending Provider Dr. Armond Saul Primary Care Provider Dr. Armond Saul Referring Provider Víctor MEAT CURER, MEAT CURER-Luna Solano Attending Provider Dr. Nathan Purcell Attending Provider [phone] Nathan Purcell Referring Provider [phone] Nathan Purcell Other Provider Collette MEAT CURER, KHAI-Luna Grant Attending Provider Dr. Matt Saul Primary Care Provider [phone] Dr. Matt Saul Referring Provider EDILSON Driscoll Attending Provider Matt Saul MD Primary Care Provider MATT SAUL Primary Care MADDIE Lind Attending Unavailable MATT SAUL Referring MATT Pace Primary Care UnavailDEMETRI Hudson Attending Unavailable MADDIE BERNSTEIN Referring Unavailable MATT SAUL Primary Care Unavailabl MADDIE Guerrero Attending Unavailable Kg LAZO, Dr. Farley Primary Care Provider Kg LAZO, Dr. Farley Referring Provider [phone] Jazzy LAZO, Dr. Evans Attending Provider [phone] Kg LAZO, Dr. Farley Attending Provider [phone] Kg LAZO, Dr. Farley Primary Care Provider [...] [place] Referring Provider Yang Romero Attending Unavailable Douglascarnegie, Matt Referring Unavailable [facility] Primary Care Unavailable Spittle, Major Attending Unavailable Spittle, Major Referring Unavailable Spittle, Major Admitting Unavailable [facility] Primary Care Unavailable Kotsonis, Major F Consulting Unavailable Spittle, Major Referring Unavailable Spittle, Major Attending [facility]available [facility]available Spittle, Major Referring Unavailable Spittle, Major Attending Unavailable [facility] Care Unavailable Oneyda Solano Attending Unavailable Oneyda Solano Referring Unavailable [facility] Primary Care Unavailable Matt Saul Attending Unavailable [facility] Referring Unavailable [facility], Matt Attending Unavailable [facility] Primary Care Unavailable Spittle, Major Referring Unavailable Seven Grey Attending Unavailable [facility] Primary Care Unavailable Spittle, Major Referring Unavailable Hansel Sultana Attending Unavailable Spittle, Major Admitting Unavailable Hansel Sultana Consulting Unavailable [facility] Care Unavailable Spittle, Major Consulting Unavailable Kotsonis, Major F Consulting Unavailable Kotsonis, Mjaor F Attending Unavailable Nathan Purcell Attending Unavailable [facility] Care Unavailable [facility] Referring Unavailable Allergies Allergy Classification Reported Allergen(s) Allergy Type Date of Onset Reaction(s) Facility (3 sources) atorvastatin drug allergy 5 myalgia [facility] Work Phone: (3 sources) simvastatin drug allergy 3 myalgias [facility] Work Phone: (3 sources) CRESTOR, PRAVACHOL drug allergy 3 myalgias [facility] Work Phone: (7 sources) Qdqpbnq-Qpr-Bio Reductase Inhibitor Propensity to adverse reactions 2 myalgias [facility] Comment on above: Lipitor, Crestor, Zo cor (5 sources) Simvastatin; Translations: [SIMVASTATIN] Drug Allergy 7 Intolerance [facility] Work Phone: (1 source) OTHER; Translations: [OTHER] Propensity to adverse reactions (disorder) 7 [facility] Repository (1 source) Yrqlrzr-Mde-Aqk Reductase Inhibitor Drug allergy (disorder) 5 [facility] Repository Medications Current Medications Medication Drug [...] TABS One tablet by mouth daily ASPIRIN [id number] Shruthi Fajardo RN Start: 06-11-2012 take 1 tablet by keyona th once daily at mealtime Aspirin 81 mg Tab Indications: Coronary atherosclerosis of unspecified type of vessel, three affiliated or graft Take 1 tablet by mouth once daily. Take with food. 06/11/2012 Active cholecalciferol 0.025 mg ora l tablet (14 sources) Vitamin D Start: 01-21-2020 take 1 tablet by keyona th once daily Start: 01-21-2020 take 2000 [IU] by mo [facility] once daily Cholecalciferol (Vitamin D3) [...] Active docusate sodium 50 mg / sennosides, chcf 8.6 mg oral tablet (2 sources) Start: 12-24-2024 fluticasone propionate 0.05 mg/actuat metered dose nasal spray (4 sources) Corticosteroid Start: 05-04-2023 fluticasone (FLONASE) 50 mcg/actuation nasal spray Use 1 Wallagrass in the nose once daily. 05/04/2023 Active [...] tablet by mouth twice daily METOPROLOL TARTRATE [id number] Mari Reyes RN oxyCODONE hydrochloride 5 mg oral tablet (2 sources) Opioid Agonist Start: 12-24-2024 take 5-10 mg by mouth every four to six hours as needed for pain polyethylene glycol 3350 467222 mg / potassium chloride 2970 mg / sodium bicarbonate 6740 mg / sodium chloride 5860 mg / sodium sulfate 28605 mg powder for oral solution (1 source) [...] One tablet by mouth daily CLOPIDOGREL BISULFATE [id number] Demetri Patrick MD [place] 5-Xje-Viu-Fish Oil (7 sources) Start: 02-08-2022 End: 04-04-2024 [place] 3-Dvg-Stx-Fish Oil (Fish Oil) 300-1,000 mg capsule Discontinued 2 NMA PO TWICE A DAY February 08, 2022 12:00am April 04, 2024 3:20pm Start: 02-08-2022 take 300-1000 mg by mouth twice daily [place] 9-Vnu-Iao-Fish Oil (Fish Oil) 300-1,000 mg capsule Active 2 CAP PO TWICE A DAY February 08, 2022 12:00am Start: 02-08-2022 take 300-1000 mg by mouth once daily [place] 3-Wvh-Atd-Fish Oil (Fish Oil) 300-1,000 mg capsule Active [...] by mouth daily [place]-3 FATTY ACIDS CAPS [id number] Demetri Patrick MD Start: 06-10-2013 End: 03-31-2015 take 1 tablet by mouth once daily FISH OIL CAPS One tablet by mouth daily [place]-3 FATTY ACIDS CAPS [id number] Demetri Patrick MD Start: 03-21-2013 End: 03-25-2013 take 1 capsule by mouth once daily FISH OIL CAPS One capsule by mouth daily [place]-3 FATTY ACIDS CAPS [id number] Demetri Patrick MD Start: 03-21-2013 take 1 capsule by mo [facility] once daily FISH OIL CAPS One capsule by mouth daily [place]-3 FATTY ACIDS CAPS [id number] Shruthi Fajardo RN FLUoxetine 10 mg oral capsule (6 sources) Serotonin Reuptake Inhibitor Start: 03-21-2013 End: 03-25-2013 take 1 tablet by mouth once daily PROZAC 10 MG CAPS One tablet by mouth daily FLUOXETINE HCL [id number] Demetri Patrick MD Start: 03-21-2013 End: 03-25-2013 take 1 tablet by mouth once daily PROZAC 10 MG CAPS One tablet by mouth daily FLUOXETINE HCL [id number] Demetri Patrick MD gemfibrozil 600 mg oral [...] BY PHYSICIAN FOR PROCEDURAL SEDATION ONLY, Intraprocedure [place]-3 Fatty Acids (3 sources) Start: 06-09-2013 End: 05-11-2017 take 300 mg by mouth once daily [place]-3 Fatty Acids Discontinued 300 MG PO DAILY June 09, 2013 1:00am May 11, 2017 5:09pm Start: 06-09-2013 End: 05-11-2017 take 300 mg by mouth once daily [place]-3 Fatty Acids Discontinued 300 MG PO DAILY June 09, 2013 12:00am May 11, 2017 4:09pm [place]-3 Fatty Acids 300 MG capsule (4 sources) Start: 06-09-2013 End: 05-11-2017 take 1 capsule by mouth once daily [place]-3 Fatty Acids 300 MG capsule Discontinued 300 [...] myocardial infarction; Translations: [Atherosclerotic heart disease of three affiliated coronary artery without angina pectoris] Onset: 12-24-2008 [...] (current) use of other medications; Translations: [Other intermediate school teacher (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 [place] [address] / REHABILITATION SERVICES INITIAL EVALUATION MR#: [id number] Acct: [id number] Name: MARIA E GUTHRIE Rep #: [id number] : 1950 74 From: Cesar Holloway DPT [...] to be FAXED BACK to us at [phone] for Medicare purposes. For Medicare only, by signing this I certify the plan of care. Please let me know if there are questions or concerns regarding this plan of care. Physician Signature: Date:__ 01/07/25 120 CC: Dr. Matt Saul MD; EDILSON Diaz CLS Signed Normal [facility] Microalb:Creat Ratio,Random URon 01-06-2025 Creatinine [Mass/Vol] 68.50 mg/dL Normal 39.00-259.00 [facility] Comment on above: Order Comment: Order Date: 01/06/25 Order Info: [id number] - MIALB Performed By: #### L 502.0250 #### [facility] [address] [place], [place], [id number] MALB:CREAT 322.6 mg/g CRE High <30 mg/g CRE [facility] Comment on above: Order Comment: Order Date: 01/06/25 Order Info: [id number] - MIALB Performed By: #### L 502.0250 #### [facility] [address] [place], [address] MICROALBUMIN,UR 221.0 mg/L Normal <20 mg/L [facility] Comment on above: Order Comment: Order Date: 01/06/25 Order Info: [id number] - MIALB Performed By: #### L 502.0250 #### [facility] [address] [place], [address] Random urine creatinine collin urement (mass/volume)Ordered By: Matt Saul on 01-06-2025 Creatinine Unsp time (U) [Mass/Vol] 68.50 mg/dL 39.00-259.00 [facility] Urine albumin measurement wi detection limit of 20 mg/L or less (mass/volume)Ordered By: Matt Saul on 01-06-2025 Albumin DL <= 20 mg/L (U) [Mass/Vol] 221.0 mg/L <20 mg/L [facility] Anion gap in Serum or Plasma Ordered By: Major Yi on 12-24-2024 Anion gap [Moles/Vol] 15 mmol/L - [facility] BUN/creatinine ratioOrdered By: Major Yi on 12-24-2024 Urea nitrogen/Creatinine [Mass ratio] 19.8 mg/mg - [facility] Basic Metabolic Profile (BMP )on 12-24-2024 BUN/CRE 19.8 RATIO Normal 02-03 [facility] Comment on above: Performed By: #### L 500.2500, L100.0500 ####[facility] [address] [place], [address] Calcium [Mass/Vol] 9.2 mg/dL Normal 7.6-11.0 [facility] Comment on above: Performed By: #### L 500.2500, L100.0500 ####[facility] [address] [place], [address] Chloride [Moles/Vol] 100 mmol/L Normal 98-[address] [facility] Comment on above: Performed By: #### L 500.2500, L100.0500 ####[facility] [address] [place], [address] CO2 [Moles/Vol] 19.6 mmol/L Low 21.0-32.0 [facility] Comment on above: Performed By: #### L 500.2500, L100.0500 ####[facility] [address] [place], [address] Creatinine [Mass/Vol] 1.01 mg/dL Normal 0.70-1.20 [facility] Comment on above: Performed By: #### L 500.2500, L100.0500 ####[facility] [address] [place], [address] ECRCL 68.29 ml/min Normal 50-250 [facility] Comment on above: Performed By: #### L 500.2500, L100.0500 ####[facility] [address] [place], [address] GAP 15 Normal 5-15 [facility] Comment on above: Performed By: #### L 500.2500, L100.0500 ####[facility] [address] [place], [address] GFR/1.73 sq M.predicted among non-blacks MDRD (S/P/Bld) [Vol rate/Area] 77 mL/min/{1.73_m2} Normal >60 [facility] Comment on above: Result Comment: mL/m in/1.73m2 CKD-EPI Creatinine Equation (2020) Performed By: #### L 500.2500, L100.0500 ####[facility] [address] [place], [address] Glucose [Mass/Vol] 175 mg/dL High 70-99 [facility] Comment on above: Performed By: #### L 500.2500, L100.0500 ####[facility] [address] [place], [address] Potassium [Moles/Vol] 4.4 mmol/L Normal 3.3-5.1 [facility] Comment on above: Performed By: #### L 500.2500, L100.0500 ####[facility] [address] [place], [address] Sodium [Moles/Vol] 135 mmol/L Normal 133-145 [facility] Comment on above: Performed By: #### L 500.2500, L100.0500 ####[facility] [address] [place], [address] Urea nitrogen [Mass/Vol] 20 mg/dL High 4-19 [facility] Comment on above: Performed By: #### L 500.2500, L100.0500 ####[facility] [address] [place], [address] Bedside Glucoseon 12-24-2024 FINGERSTICK GLU 306 mg/dL High 74-106 [facility] Comment on above: Result Comment: SUSAN GEMENT OF PATIENT CARE PER NURSING PROTOCOL Performed By: #### L 501.080 #### [facility] [address] [place], [address] FINGERSTICK GLU 188 mg/dL High 74-106 [facility] Comment on above: Result Comment: SUSAN GEMENT OF PATIENT CARE PER NURSING PROTOCOL Performed By: #### L 501.080 #### [facility] [address] [place], [address] CBC-Complete Blood Cnt No Di ffon 12-24-2024 Erythrocyte distribution width (RBC) [Ratio] 13.4 % Normal 11.6-14.6 [facility] Comment on above: Performed By: #### L 500.2500, L100.0500 #### [facility] [address] [place], [address] Hematocrit (Bld) [Volume fraction] 39.7 % Low 40-54 [facility] Comment on above: Performed By: #### L 500.2500, L100.0500 #### [facility] [address] [place], [address] Hemoglobin (Bld) [Mass/Vol] 13.5 g/dL Normal 13.0-16.5 [facility] Comment on above: Performed By: #### L 500.2500, L100.0500 #### [facility] [address] [place], [address] MCH (RBC) [Entitic mass] 29.6 pg Normal 27.0-32.0 [facility] Comment on above: Performed By: #### L 500.2500, L100.0500 #### [facility] [address] [place], [address] MCHC (RBC) [Mass/Vol] 34.0 g/dL Normal 32-36 [facility] Comment on above: Performed By: #### L 500.2500, L100.0500 #### [facility] [address] [place], [address] MCV (RBC) [Entitic vol] 87.1 fL Normal 80-94 [facility] Comment on above: Performed By: #### L 500.2500, L100.0500 #### [facility] [address] [place], [address] Platelet mean volume (Bld) [Entitic vol] 11.7 fL Normal 6.2-12.0 [facility] Comment on above: Performed By: #### L 500.2500, L100.0500 #### [facility] [address] [place], [address] Platelets (Bld) [#/Vol] 174 10*3/uL Normal 150-450 [facility] Comment on above: Performed By: #### L 500.2500, L100.0500 #### [facility] [address] [place], [address] RBC (Bld) [#/Vol] 4.56 10*6/uL Low 4.6-6.2 [facility] Comment on above: Performed By: #### L 500.2500, L100.0500 #### [facility] [address] [place], [address] RDW SD 41.7 fl Normal 35.1-43.9 [facility] Comment on above: Performed By: #### L 500.2500, L100.0500 #### [facility] [address] [place], [address] WBC (Bld) [#/Vol] 10.6 10*3/uL Normal 4.4-11.0 [facility] Comment on above: Performed By: #### L 500.2500, L100.0500 #### [facility] [address] [place], [address] Carbon dioxide, total [Moles /volume] in Central venous bloodOrdered By: Major Yi on 12-24-2024 CO2 [Moles/Vol] 19.6 mmol/L Low 21.0-32.0 [facility] Chloride assayOrdered By: Yumiko Yi on 12-24-2024 Chloride [Moles/Vol] 100 mmol/L 98-[address] [facility] Erythrocyte distribution wid th ratioOrdered By: Major Yi on 12-24-2024 Erythrocyte distribution width (RBC) [Ratio] 13.4 % 11.6-14.6 [facility] Erythrocyte distribution wid th standard deviationOrdered By: Major Yi on 12-24-2024 Erythrocyte distribution width (RBC) [Ratio] 41.7 fl 35.1-43.9 [facility] Glomerular filtration rate ( GFR) estimation/1.73 sq m using serum, plasma, or whole bOrdered By: Major Yi on 12-24-2024 GFR/1.73 sq M.predicted among non-blacks MDRD (S/P/Bld) [Vol rate/Area] 77 mL/min/{1.73_m2} >60 [facility] Comment on above: mL/min/1.73m2 CKD-EP I Creatinine Equation (2020) [facility] deOrdered By: Major Yi on 12-24-2024 Glucose [Mass/Vol] 306 mg/dL High 74-106 [facility] Comment on above: MANAGEMENT OF PATIEN T CARE PER NURSING PROTOCOL Hematocrit Auto (Bld) [Volum e fraction]Ordered By: Major Yi on 12-24-2024 Hematocrit (Bld) [Volume fraction] 39.7 % Low 40-54 [facility] Hemoglobin measurementOrdere d By: Major Yi on 12-24-2024 Hemoglobin (Bld) [Mass/Vol] 13.5 g/dL 13.0-16.5 [facility] MCV (mean corpuscular volume ) determinationOrdered By: Major Yi on 12-24-2024 MCV (RBC) [Entitic vol] 87.1 fL 80-94 [facility] Mean corpuscular hemoglobin (MCH) determinationOrdered By: Major Yi on 12-24-2024 MCH (RBC) [Entitic mass] 29.6 pg 27.0-32.0 [facility] Mean corpuscular hemoglobin concentration (MCHC) determinationOrdered By: Major Yi on 12-24-2024 MCHC (RBC) [Mass/Vol] 34.0 g/dL 32-36 [facility] Mean platelet volume determi nationOrdered By: Major Yi on 12-24-2024 Platelet mean volume (Bld) [Entitic vol] 11.7 fL 6.2-12.0 [facility] Platelet countOrdered By: Yumiko Yi on 12-24-2024 Platelets (Bld) [#/Vol] 174 10*3/uL 150-450 [facility] Potassium measurement (mass/ volume)Ordered By: Major Yi on 12-24-2024 Potassium (Unsp spec) [Mass/Vol] 4.4 mmol/L 3.3-5.1 [facility] RBC Auto (Bld) [#/Vol]Ordere d By: Major Yi on 12-24-2024 RBC (Bld) [#/Vol] 4.56 10*6/uL Low 4.6-6.2 [facility] Serum creatinine measurement (mass/volume)Ordered By: Major Yi on 12-24-2024 Creatinine [Mass/Vol] 1.01 mg/dL 0.70-1.20 [facility] Serum glucose measurement (m ass/volume)Ordered By: Major Yi on 12-24-2024 Glucose [Mass/Vol] 175 mg/dL High 70-99 [facility] Serum or plasma calcium collin urement (mass/volume)Ordered By: Major Yi on 12-24-2024 Calcium [Mass/Vol] 9.2 mg/dL 7.6-11.0 [facility] Serum or plasma urea nitroge n measurement (mass/volume)Ordered By: Major Yi on 12-24-2024 Urea nitrogen [Mass/Vol] 20 mg/dL High 4-19 [facility] Sodium levelOrdered By: Moshe Yi on 12-24-2024 Sodium [Moles/Vol] 135 mmol/L 133-145 [facility] White blood cell (WBC) count Ordered By: Major Yi on 12-24-2024 WBC (Bld) [#/Vol] 10.6 10*3/uL 4.4-11.0 [facility] Bedside Glucoseon 12-23-2024 FINGERSTICK GLU 272 mg/dL High 74-106 [facility] Comment on above: Result Comment: SUSAN GEMENT OF PATIENT CARE PER NURSING PROTOCOL Performed By: #### L 501.080 ####[facility] [address] [facility] [place], [address] FINGERSTICK GLU 166 mg/dL High 74-106 [facility] Comment on above: Result Comment: SUSAN GEMENT OF PATIENT CARE PER NURSING PROTOCOL Performed By: #### L 501.080 ####[facility] [address] [place], [address] FINGERSTICK GLU 195 mg/dL High [facility]106 [facility] Comment on above: Result Comment: SUSAN GEMENT OF PATIENT CARE PER NURSING PROTOCOL Performed By: #### L 501.080 #### [facility] [address] [place], [address] Consultation - [facility]iston 12-23-2024 Consultation - Hospitalist [facility] Medical Records Department [address] [place] [address] Consultation - Hospitalist 12/23/24 1608 MR#: [id number] Acct: [id number] Name: MARIA E GUTHRIE Rep #: [id number] : 1950 74 From: Hansel Sultana DO PCP: Dr. Matt Saul MD Status:ADM BRA Location: [place] [address] Assessment Plan Assessment/Plan (1) Right rotator cuff tear arthropathy: PLAN: Plan Patient is a 74-year-old male who presented to [facility] on 12/23/2024 for planned right shoulder [...] is a 74 M who presented to [facility] on 12/23/2024 for planned orthopedic procedure. [...] acute concerns at this time. 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 [facility] MR/POSTOP.ANEon 12-23-2024 MR/POSTOP.[facility] Medical Records Department [address] [place] [address] Anesthesia Postop Eval I 12/23/24 1332 MR#: [id number] Acct: [id number] Name: MARIA E GUTHRIE Rep #: [id number] : 1950 74 From: Priscilla Willard CRNA PCP: Dr. Matt Saul MD Status:REG [facility] [place] Race: C Location: [place] [address] Anesthesia: Postop Eval I Current Vital Signs Temperature: 97 F Pulse Rate: 89 Blood Pressure: 145/87 Respiratory Rate: 18 Pulse Ox: 93 Assessment Airway patent: Yes Spontaneous unlabored respirations: Yes nausea: No Vomiting: No Anesthesia Complication: No Fluid Hydration Crystalloid volume administer (ml): 1,300 Total IV fluid infused: 1,300 Progress Note Anesthesia document: Postop Eval 1 completed: Yes 12/23/241332 Date Priscilla Willard ONCOLOGY ACCOUNT SPECIALIST Cosigner Signature: Date CC: Signed [facility] MR/GLCCRNLO2es 12-23-2024 MR/POSTOPAN2 [facility] Medical Records Department [address] [facility] [place] [address] Anesthesia Postop Eval II 12/23/24 1433 MR#: [id number] Acct: [id number] Name: MARIA E GUTHRIE Rep #: [id number] : 1950 74 From: Osei Lubin MD PCP: Dr. Matt Saul MD Status:ADM BAR Y Race: C [facility] Postop Eval I Sum Postop Eval Completion status Anesthesia document: Postop Eval 1 completed: Yes Anesthesia Postop Eval I Summary Anesthesia Postop Eval I Summary: Anesthesia Postop Eval I: Assessment Summary Airway patent Yes 12/23/24 13:32 ONCOLOGY ACCOUNT SPECIALIST.CSIR Spontaneous unlabored Yes 12/23/24 13:32 ONCOLOGY ACCOUNT SPECIALIST.CSIR respirations Mental status nausea No 12/23/24 13:32 ONCOLOGY ACCOUNT SPECIALIST.CSIR Vomiting No 12/23/24 13:32 ONCOLOGY ACCOUNT SPECIALIST.CSIR Anesthesia Postop Eval I: Fluid Summary Crystalloid volume administer 1,300 12/23/24 13:32 ONCOLOGY ACCOUNT SPECIALIST.CSIR (ml) Colloids volume administered ( ml) Blood Product volume administered (ml) Total IV fluid infused 1,300 12/23/24 13:32 ONCOLOGY ACCOUNT SPECIALIST.CSIR Anesthesia Postop Eval I: Summary Notes Anesthesia Complication No 12/23/24 13:32 ONCOLOGY ACCOUNT SPECIALIST.CSIR Anesthesia Complication Comment: Post-operative progress note Anesthesia: Postop Eval II Evaluation Mental status: Awake and Calm Pain Level: 1 nausea: No Vomiting: No Complications Anesthesia Complication: No 12/23/24 1433 Date Osei Lubin MD Cosigner Signature: Date CC: Signed Normal [facility] Magnesiumon 12-23-2024 Magnesium [Mass/Vol] 1.8 mg/dL Normal 1.5-2.[address] [facility] Comment on above: Performed By: #### L [phone] #### [facility] Laboratory [facility] [place], [address] Magnesium measurement (mass/ volume)Ordered By: Faheem Barroso on 12-23-2024 Magnesium (Unsp spec) [Mass/Vol] 1.8 mg/dL 1.5-2.2 [facility] Operative Reporton Operative Report [facility] Medical Records Department [address] [place] [address] Operative Report 12/23/24 1322 MR#: [id number] Acct: [id number] Name: MARIA E GUTHRIE Rep #: [id number] : 1950 74 From: Major Yi DO PCP: Dr. Matt Saul MD Status:[facility] Location: [place] [address] Operative Report (Standard) Operative Information Date of Procedure: 12/23/24 Pre-Operative Diagnosis: Right shoulder rotator cuff tear arthropathy Post-Operative Diagnosis: Right shoulder rotator cuff tear arthropathy Surgery/Procedure Performed: Right reverse total shoulder arthroplasty engineering manager electronics: Yes Paint Line Production Supervisor: Oneyda Solano Tasks completed by medical practice assistant: Opening closing, Implanting device, Hemostasis: Electrocautery [...] No Description of surgery: Patient arrived to [facility] morning of the procedure and was [...] positioned in the beachchair position. A well-padded lab head was applied. The nonoperative extremity was [...] cartilaginous carla (more content not included)... Normal [facility] Shoulder min 2 Viewson 12-23 Shoulder min 2 Views [facility] Imaging Services [address] [place] [address] Shoulder min 2 Views MR#: [id number] Acct: [id number] Name: MARIA E GUTHRIE Rep #: [id number] : 1950 M 74 From: Seven Suárez MD PCP: Dr. Matt Saul MD Status: [facility] Study: Shoulder min 2 Views Date of Exam: 12/23/24 Exam# [id number] Ordering Dr: Major Yi DO PROCEDURE: SHOULDER [...] IMPRESSION: Right shoulder reverse arthroplasty. Reading Location: [place] [address] CC: Dr. Matt Saul MD; Dr. Major Yi DO Ventilated Rib Fitter: Signed [facility] MR/PAT.ANEon 12-04-2024 MR/PAT.ANE [facility] Medical Records Department [address] [facility] [place] [address] PAT - Anesthesia 12/04/241946 MR#: [id number] Acct: [id number] Name: MARIA E GUTHRIE Rep #: [id number] : 1950 74 From: Faheem Barroso MD PCP: Dr. Matt Saul MD Status:PRE [facility] Y Race: C [place] [facility] Pre-Assessment Diagnosis/Proposed Procedure Planned Operative Procedure(s): RIGHT REVERSE TOTAL SHOULDER ARTHROPLASTY Anesthesia History Anesthesia History - senior visual designer: Anesthesia History - senior visual designer Hx Hospitalization No 12/03/24 10:59 Any Problems [...] take am of surgery PONV PONV - senior visual designer: PONV - senior visual designer Female No 12/03/24 10:59 HX of Motion Sickness No 12/03/24 10:59 HX of N/V After Surgery No 12/03/24 10:59 Non-Smoker Yes 12/03/24 10:59 Duration of Surgery greater Yes 12/03/24 10:59 than 60 minutes Number of Risk Factors 2 12/03/24 10:59 PONV Score Moderate Risk 12/03/24 10:59 Height Weight Height Weight: Anesthesia: Height Weight Height 6 ft 04/04/24 14:18 Respiratory Assessment Respiratory Assessment - senior visual designer: Respiratory Tract Infection Hx - senior visual designer Hx Respiratory Tract Infection No 12/03/24 10:59 STOP Sleep Apnea STOP Sleep 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 - 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 visual 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: STOP Sleep Apnea - senior visual designer Hx Hypertension Yes: CONTROLLED WITH MED 12/03/24 [...] Tobacco Use History Tobacco Use History - senior visual designer: Tobacco Use History - senior visual designer Tobacco Use Smoking Status Never smoker 12/03/24 10:59 Hx Tobacco Use No 12/03/24 10:59 Years Smoking Packs Smoked per Day Smoking Cessation Date was within the last 15 years Hx Smoking Cessation Date Hx Smoking Cessation Counseling Hematologic Medial History Hematologic Hx - 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 Normal [facility] 12 Lead EKGon 11-27-2024 12 Lead EKG [facility] Cardiovascular Services [address] [place] [address] 12 Lead EKG 11/27/24 0654 MR#: [id number] Acct: [id number] Name: MARIA E GUTHRIE W Rep #: [id number] : 1950 74 From: Seven Grey MD Attending Dr: Dr. Major Yi DO Status: PRE [facility] Ordering Dr: Major Yi DO Date: 11/27/24 Location: [facility] Sex: M C Admitted: Test Reason : [...] Borderline ECG Confirmed by Seven Grey ([id number]), film or videotape editor KARINA GIVENS ([id number]) on 11/27/2024 9:43:00 AM Referred By: Major Yi Confirmed By: Seven Grey 11/27/24 0943 Date Seven Grey MD CC: Dr. Matt Saul MD; Dr. Major Yi DO Signed Normal [facility] Electrocardiogram reportOrde red By: Seven Gery on 11-27-2024 EKG study [facility] Cardiovascular Services [address] [place] [address] 12 Lead EKG 11/27/24 0654 MR#: [id number] Acct: [id number] Name: MARIA E GUTHRIE Rep #:[id number] : 1950 74 From: Seven alcantara MD Attending Dr: Dr. Major Yi DO Status: PRE [facility] Ordering Dr: Major Yi DO Date: 11/27/24 Location: [facility] Sex: M C Admitted: Test Reason : [...] block Borderline ECG Confirmed by Seven Grey ([id number]), film or videotape editor KARINA GIVENS ([id number]) on 59:43:00 AM Referred By: Major Yi Confirmed By: Seven Grey 11/27/24 0943 Date _ Seven Grey MD CC: Dr. Matt Saul MD; Dr. Major Yi DO ~ Signed [facility] Work Phone: Extremity Upper without Cont raon 11-26-2024 Extremity Upper without Contra [facility] Imaging Services [address] [place] [address] [id number] Extremity Upper without Contra MR#: [id number] Acct: [id number] Name: MARIA E GUTHRIE Rep #: [id number] : 1950 M 74 From: Gonzalez Gracia MD PCP: Dr. Matt Saul MD Status: REG CLI Study: Extremity Upper without Contra Date of Exam: 0 11/26/24 Exam# [id number] Ordering Dr: Major Yi DO PROCEDURE: EXTREMITY [...] Matt Saul MD; Dr. Major Yi DO Ventilated Rib Fitter: Signed Normal [facility] Urgent Care Visit Reporton 0 07-09-[address] [facility] [address], [address] [place] [address] OFFICE VISIT Date of Service: 07/09/24 MR#: [id number] Acct: [id number] Name: MARIA E GUTHRIE Rep #: [id number] : 1950 Provider: EDILSON Salinas Age/Sex: 74/M Location: [facility] Status: Signed Intake Vital Signs [...] Reasons: RASH ON BACK Chief Complaint: rash Store Team Member Required: No Is patient in pain?: Yes Allergies Ecbnept-GTZ-IkB Reductase Inhibitor (Nkecrnq-Zop-Rqu Reductase Inhibitor) Adverse Reaction (Mild, Verified 07/09/24 17:33) myalgias Have you fallen in the past year?: No Nurse's Note: rash to left upper buttock/low back x 3-4 days with burning. 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 No osze-wce-vopncgo products taken to assist. No other associated [...] Rodríguez Signature: Date (if applicable) CC: Normal [facility] Ankle min 3 Viewson 06-19-19 25 Ankle min 3 Views [facility] Imaging Services [address] [place] [id number] Ankle min 3 Views MR#: [id number] Acct: [id number] Name: MARIA E GUTHRIE Rep #: [id number] : 1950 M 74 From: Tenzin Joshua MD PCP: Dr. Matt Saul MD Status: REG CLI Study: Ankle min 3 Views Date of Exam: 06/18/24 Exam# [id number] Ordering Dr: Matt Saul EXAM: XR Right [...] evaluation with CT is recommended. Reading [facility] CC: Dr. Matt Saul MD Ventilated Rib Fitter: Signed Normal [facility] Foot min 3 Viewson Foot min 3 Views [facility] Imaging Services [address] [place], [place] [id number] Foot min 3 Views MR#: [id number] Acct: [id number] Name: MARIA E GUTHRIE Rep #: [id number] : 1950 M 74 From: Pako de leon MD PCP: Dr. Matt Saul MD Status: REG CLI Study: Foot min 3 Views Date of Exam: 06/18/24 Exam# [id number] Ordering Dr: Matt Saul PROCEDURE: FOOT MIN [...] suggestive of gout. Calcaneal spurs. Reading Location: [id number] CC: Dr. Matt Saul MD Ventilated Rib Fitter: Signed Normal [facility] Cardiology Visit Reporton Cardiology Visit Report [facility] [address] [place], [place] [address] OFFICE VISIT Date of Service: 04/04/24 MR#: [id number] Acct: [id number] Name: MARIA E GUTHRIE Rep #: [id number] : 1950 Provider: Dr. Nathan Purcell MD Age/Sex: 73/M Location: [facility] Status: Signed HPI HPI History of Present [...] has been put on Praluent by the [facility]. 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 Normal [facility] CNOVon 02-26-2024 CN Office Visit (GENSWS ) MARIA E GUTHRIE ([id number]) 1950 Date Time Provider Department 02/26/24 1:00 PM MADDIE BERNSTEIN GENS During your visit today, we recorded the following information about you: Maddie Bernstein APRN.CNP 02/26/2024 1:03 PM Signed FOLLOW UP VISIT - ENDOSCOPY Maria E John Maksim 1950 [id number] REFERRING PHYSICIAN: Matt Saul ([facility]) [address] [place] [id number] Maria E Guthrie is a patient I [...] Maddie Bernstein APRN.BALJIT Referring Provider: MATT SAUL [[id number]] Allergies As of Date: 02/26/2024 Noted Allergy Reaction ZOCOR (SIMVASTATIN) 08/15/2006 5 - Intolerance Comments: myalgias Date Reviewed: 02/26/2024 Reviewed by: Maddie Bernstein APRN.UNDERWATER HUNTER - Fully Assessed Reason for Visit: Follow Up [171] Cmt: Review colonoscopy results. Primary Visit Diagnosis:History of colonic polyps [Z86.0100] Prescriptions as of 02/26/2024 - alirocumab (PRALUENT) 150 mg/mL pen Inject 150 mg subcutaneously. - losartan (COZAAR) 100 mg tablet Take 100 mg by mouth. - fluticasone (FLONASE) 50 mcg/actuation nasal spray Use 1 Wallagrass in the nose once daily. - cyanocobalamin [...] Status:Closed by MADDIE BERNSTEIN on 02/26/24 Normal [facility] [id number] 02-19-2024 [id number] HNO ID: [id number] Author: ESTELLE BIRD RN Service: ? Author Type: Registered Nurse Type: [id number] Filed: 02/19/2024 12:17 Note Text: The patient received a copy of Colonoscopy discharge instructions that contain information for how to contact the physician who performed the procedure and when to seek medical care. Normal [facility] Colonoscopyon 02-19-2024 [facility] Patient Name: Maria E Guthrie [...] previous diet. Procedure Code(s): --- Professional --- 43608, Colonoscopy, flexible; with biopsy, single or multiple G0500, Moderate sedation services provided by the same physician or other qualified health progressive care manager performing a gastrointestinal endoscopic service that sedation supports, requiring the presence of an independent trained observer to assist in the monitoring of the patient's level of consciousness and physiological status; initial 15 minutes of intra-service time; patient age 5 years or older (additional time may be reported with 32098, as appropriate) Diagnosis Code(s): --- Professional --- Z12.11, Encounter for screening for malignant neoplasm of colon Z86.010, Personal history of colonic polyps K64.8, Other hemorrhoids D12.5, Benign neoplasm of sigmoid colon CPT copyright 2020 [employer]. All rights reserved. The codes documented in this report are preliminary and upon coin wrapping machine operator review may be revised to meet current compliance requirements. Attending Participation: I personally performed the entire procedure. Scope In: 11:39:45 AM Scope Out: 11:54:37 AM MD Demetri Sainz MD 02/19/2024 12:01:02 PM This report has been signed electronically by Demetri Lord MD Number of Addenda: 0 Note Initiated On: 02/19/2024 11:28 AM Estimated Blood Loss: Estimated blood loss was minimal. Normal [facility] Colonoscopy Study observatio non 02-19-2024 [facility] [...] previous diet. Procedure Code(s): --- Professional --- 80486, Colonoscopy, flexible; with biopsy, single or multiple G0500, Moderate sedation services provided by the same physician or other qualified health progressive care manager performing a gastrointestinal endoscopic service that sedation sup (more content not included)... PROVATION [facility] Radiology Study observation (narrative) [facility] HISTORY PHYSICALon HISTORY PHYSICAL HNO ID: [id number] Author: DEMETRI LORD MD Service: General Surgery [...] Last colonoscopy 06/[address] Park at [facility]. Sedation:Midazolam 5 mg IV, Fentanyl 100 micrograms [...] (FLONASE) 50 mcg/actuation nasal spray Use 1 Wallagrass in the nose once daily. cyanocobalamin (VITAMIN [...] entered by the nurse and reviewed by hi Nursing Notes: Francisca Spann RN 02/16/2024 2:03 [...] The pa (more content not included)... Normal [facility] SURGICAL PATHOLOGYon 024 CASE REPORT Normal [facility] Comment on above: Order Comment: Speci men Type: TISSUE SPECIMEN Ordering Facility: Address: [address] [place] [address] Result Comment: Surg ical Pathology Report Case: [id number] Authorizing Provider: Demetri Lord MD Collected: 02/19/2024 11:51 AM Ordering Location: Ambulatory Surgery Received: 02/19/2024 12:46 PM Pathologist: Tracie Hwang MD Specimen: Colon, Sigmoid, Polyp Performed By: #### S #### [facility] CLIA [id number] [address] [place] [address] [place] FINAL DIAGNOSIS Normal [facility] Comment on above: Order Comment: Speci men Type: TISSUE SPECIMEN Ordering Facility: Address: [address] [place] [address] Result Comment: A. C olon, sigmoid, polyp, polypectomy -Tubular adenoma Performed By: #### S #### [facility] CLIA [id number] [address] [place] [address] [place] FINAL PERFORMING LAB Normal [facility] Comment on above: Order Comment: Speci men Type: TISSUE SPECIMEN Ordering Facility: Address: [address] [place] [address] Result Comment: Diag nostic interpretation performed at [facility], [address] [place] [address] CLIA# [id number] Printer'S Devil: Karel Singer M.D. Performed By: #### S #### [facility] CLIA [id number] [address] [place] [address] [place] GROSS DESCRIPTION Normal [facility] Comment on above: Order Comment: Speci men Type: TISSUE SPECIMEN Ordering Facility: Address: [address] [place] [address] Result Comment: A. Luna olon, Sigmoid, Polyp Received in formalin is one piece of simon, soft tissue measuring 0.4 x 0.3 x 0.2 cm. Totally submitted in one cassette. KDK February 19, 2024 7:33 PM Gross examination performed at [facility], [address] [place] [address] Performed By: #### S #### [facility] CLIA [id number] [address] [place] [address] [id number] CNOVon 02-16-2024 CNOV Office Visit (GENSWS ) MARIA E GUTHRIE ([id number]) 1950 Date Time Provider Department 02/16/24 2:00 [...] Last colonoscopy 06/[address] Park at [facility]. Sedation:Midazolam 5 mg IV, Fentanyl 100 micrograms [...] (FLONASE) 50 mcg/actuation nasal spray Use 1 Wallagrass in the nose once daily. cyanocobalamin (VITAMIN [...] entered by the nurse and reviewed by hi Nursing Notes: Francisca Spann RN 02/16/2024 2:03 [...] stent. Respir (more content not included)... Normal [facility]20[facility] MAR[facility] E GUTHRIE ([id number]) 1950 M Date Time Provider Department 02/16/24 MOLLY BERNSTEIN During your visit today, we recorded the following information about you: Melanie Marcelino 02/16/2024 2:37 PM Signed 02-19-2024 Colonoscopy concepción EFREN Cook prep, nurse went over instructions yudy has direct number to contact for any questions or concerns., Instructed patient to arrive at 1045 in [facility] Allergies As of Date: 02/16/2024 Noted Allergy Reaction ZOCOR (SIMVASTATIN) 08/15/2006 5 - Intolerance Comments: myalgias Date Reviewed: 02/16/2024 Reviewed by: Maddie Bernstein APRN.UNDERWATER HUNTER - Fully Assessed Reason for Visit: 02-19-2024 Colonscoopy [Other] Prescriptions as of 03/18/2024 - alirocumab (PRALUENT) 150 mg/mL pen Inject 150 mg subcutaneously. - losartan (COZAAR) 100 mg tablet Take 100 mg by mouth. - fluticasone (FLONASE) 50 mcg/actuation nasal spray Use 1 Wallagrass in the nose once daily. - cyanocobalamin [...] Encounter Status:Closed by MELANIE MARCELINO on 03/18/24 [facility] No Panel InformationOrdered By: Joe Joshua on 08-18-2023 Troponin I High Sensitivity 9 pg/mL 3.0-78.0 [facility] Comment on above: Please Note: New Nighat t Units and Gender Specific Reference Ranges. For more information see Policy Stat Procedure Jesse High Sensitivity Troponin (TNIH) and attachments. Absolute lymphocyte countOrd ered By: Joe Joshua on 08-17-2023 Lymphocytes Auto (Unsp spec) [#/Vol] 2.02 10*3/uL 0.83-4.51 [facility] Automated lymphocyte count a s percentage of total leukocytesOrdered By: Joe Joshua on 08-17-2023 Lymphocytes/100 WBC Auto (Unsp spec) 49.8 % 19-41 [facility] Basophil percentageOrdered B y: Joe Joshua on 08-17-2023 Basophils/100 WBC (Bld) 0.5 % 0-1 [facility] Chloride [Moles/Vol] 101 mmol/L 98-[address] [facility] Eosinophils/100 WBC (Bld) 0.7 % 0-5 [facility] Glucose [Mass/Vol] 195 mg/dL 74-106 [facility] Comment on above: Fasting Glucose resu lt greater than or equal to 126 mg/dL suggests DIABETES MELLITUS per A.D.A. criteria. Hemoglobin (Bld) [Mass/Vol] 15.4 g/dL 13.0-16.5 [facility] Monocytes/100 WBC (Bld) 10.1 % 0-10 [facility] Neutrophils (Bld) [#/Vol] 1.6 10*3/uL 2.0-7.7 [facility] Neutrophils/100 WBC (Bld) 38.9 % 47-70 [facility] Potassium [Moles/Vol] 3.1 mmol/L 3.5-5.1 [facility] Sodium [Moles/Vol] 135 mmol/L 136-145 [facility] WBC (Bld) [#/Vol] 4.1 10*3/uL 4.4-11.0 [facility] Determination of erythrocyte mean corpuscular volume (MCV)Ordered By: Joe Joshua on 08-17-2023 MCV (RBC) [Entitic vol] 87.0 fL 80-94 [facility] Erythrocyte distribution wid th ratioOrdered By: Joe Joshua on 08-17-2023 Erythrocyte distribution width (RBC) [Ratio] 13.0 % 11.6-14.6 [facility] Erythrocyte distribution wid th standard deviationOrdered By: Joe Joshua on 08-17-2023 Erythrocyte distribution width (RBC) [Entitic vol] 40.8 fL 35.1-43.9 [facility] Hematocrit Auto (Bld) [Volum e fraction]Ordered By: Joe Joshua on 08-17-2023 Hematocrit (Bld) [Volume fraction] 45.4 % 40-54 [facility] Immature granulocytes/100 WB C Auto (Bld)Ordered By: Joe Joshua on 08-17-2023 Immature granulocytes/100 WBC (Bld) 0.000 % 0.0-0.9 [facility] Comment on above: IG% - Immature Granu locytes (promyelocytes, myelocytes and metamyelocytes) > 1% indicates that a LEFT SHIFT is Present. Laboratory - Chemistry and C hemistry - challengeOrdered By: Joe Joshua on 08-17-2023 CO2 [Moles/Vol] 29.0 mmol/L 21.0-32.0 [facility] Urea nitrogen/Creatinine [Mass ratio] 18.5 mg/mg 10-20 [facility] Laboratory - Hematology and Cell countsOrdered By: Joe Joshua on 08-17-2023 MCH (RBC) [Entitic mass] 29.5 pg 27.0-32.0 [facility] MCHC (RBC) [Mass/Vol] 33.9 g/dL 32-36 [facility] Nucleated RBC/100 WBC (Bld) [Ratio] 0 % 0-5 [facility] Platelet mean volume (Bld) [Entitic vol] 10.7 fL 6.2-12.0 [facility] Platelets (Bld) [#/Vol] 147 10*3/uL 150-450 [facility] No Panel InformationOrdered By: Joe Joshua on 08-17-2023 D-Dimer Quantitative (PE/DVT) 0.44 FEU/ug/m 0.27-0.49 [facility] Comment on above: NORMAL D-Dimer level (<0.50) indicates no DVT or PE. Estimated Creatinine Clearance Calc 72.22 ml/min [facility] Estimated GFR (MDRD) Amer 97 mL/min >60 [facility] Comment on above: GFR Calc Estimated GFR (MDRD) Non-Af Amer 80 mL/min >60 [facility] Comment on above: Non- GFR Calc RBC Auto (Bld) [#/Vol]Ordere d By: Joe Joshua on 08-17-2023 RBC (Bld) [#/Vol] 5.22 10*6/uL 4.6-6.2 [facility] Serum or plasma calcium collin urement (mass/volume)Ordered By: Joe Joshua on 08-17-2023 Calcium [Mass/Vol] 9.4 mg/dL 8.5-10.1 [facility] Serum or plasma creatinine m easurement (mass/volume)Ordered By: Joe Joshua on 08-17-2023 Creatinine [Mass/Vol] 0.97 mg/dL 0.70-1.30 [facility] Comment on above: The validity of the calculated GFR & GFRAA in patients over 70 years has not been determined. Clinical correlation is essential. Serum or plasma urea nitroge n measurement (mass/volume)Ordered By: Joe Joshua on 08-17-2023 Urea nitrogen [Mass/Vol] 18 mg/dL 7-18 [facility] Thin prep Papanicolaou smear with manual screeningOrdered By: Joe Joshua on 08-17-2023 Thin prep Papanicolaou smear with manual screening 5 5-15 [facility] No Panel Informationon 05-17 Influenza Types A,B Rapid (Clinic) Pos FLU A &Neg FLU B [facility] Office Visiton 11-08-2016 Fall risk assessment No [facility] Work Phone: [phone] Protein mass conc Done [facility] Work Phone: [phone] Chart Maintenanceon 11-07-19 17 Left ventricular Ejection fraction 75 % [facility] Work Phone: Office Visiton 03-29-2016 Dietary management education, guidance, and counseling (procedure) yes Invalid Interpretation Code [facility] Work Phone: [phone] Documentation of current medications (procedure) Done Invalid Interpretation Code [facility] Group Work Phone: [phone] Tobacco smoking status NHIS Never smoker [facility] Work Phone: [phone] Tobacco use CPHS Never smoker Invalid Interpretation Code [facility] Work Phone: [phone] Clinical Lists Update: 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 12-22-2015 Alanine aminotransferase (ALT) 45 U/L [facility] Work Phone: [phone] Albumin 4.1 g/dL [facility] Work Phone: [phone] Alkaline phosphatase (ALP) 51 U/L Invalid Interpretation Code [facility] Work Phone: [phone] ALP enzyme act/vol (Bld) 51 U/L [facility] Work Phone: [phone] Anion gap 16 mmol/L Invalid Interpretation Code [facility] Work Phone: [phone] Anion gap molar conc 16 mmol/L [facility] Work Phone: [phone] Aspartate aminotransferase (AST) 40 U/L [facility] Work Phone: [phone] Bilirubin (total) 0.5 mg/dL [facility] Work Phone: [phone] Calcium 8.9 mg/dL [facility] Work Phone: [phone] Chloride 109 mmol/L High [facility] Work Phone: [phone] Cholesterol 202 mg/dL High [facility] Work Phone: [phone] CO2 19 mmol/L Low [facility] Work Phone: [phone] CO2 ppres (BldV) 19 mmol/L Low [facility] Work Phone: [phone] Creatinine 1.0 mg/dL [facility] Work Phone: [phone] Erythrocyte distribution width Ratio (RBC) 13.6 % [facility] Work Phone: [phone] Erythrocytes (RBC) 5.69 10*6/uL Invalid Interpretation Code [facility] Work Phone: [phone] Glucose 117 mg/dL Invalid Interpretation Code [facility] Work Phone: [phone] Glucose mass conc 117 mg/dL [facility] Work Phone: [phone] HbA1c 6.5 % High [facility] Work Phone: [phone] HDL Cholesterol 45 mg/dL [facility] Work Phone: [phone] Hematocrit (HCT) 49.1 % Invalid Interpretation Code [facility] Work Phone: [phone] Hematocrit Volume Fraction (Bld) 49.1 % [facility] Work Phone: [phone] Hemoglobin (HGB) 16.6 g/dL [facility] Work Phone: [phone] LDL Cholesterol 130 mg/dL High [facility] Work Phone: [phone] Magnesium 2.3 mg/dL [facility] Work Phone: [phone] MCH 29.2 pg Invalid Interpretation Code [facility] Work Phone: [phone] MCH Entitic mass (RBC) 29.2 pg [facility] Work Phone: [phone] MCHC 33.8 g/dL Invalid Interpretation Code [facility] Work Phone: [phone] MCHC mass conc (RBC) 33.8 g/dL [facility] Work Phone: [phone] MCV 86.3 fL Invalid Interpretation Code [facility] Work Phone: [phone] MCV Entitic volume (RBC) 86.3 fL [facility] Work Phone: [phone] Platelets 245 10*3/mm3 Invalid Interpretation Code [facility] Work Phone: [phone] Platelets #/vol (Bld) 245 10*3/mm3 [facility] Work Phone: [phone] Potassium 3.9 mmol/L [facility] Work Phone: [phone] Protein 7.3 g/dL [facility] Work Phone: [phone] RBC #/vol (Bld) 5.69 10*6/uL [facility] Work Phone: [phone] RDW-CA 13.6 % Invalid Interpretation Code [facility] Work Phone: [phone] Sodium 140 mmol/L [facility] Work Phone: [phone] Thyroid stimulating hormone (TSH) 1.23 u[iU]/mL [facility] Work Phone: [phone] Thyroxine (T4) free 1.05 ng/dL [facility] Work Phone: [phone] Triglyceride 272 mg/dL High [facility] Work Phone: [phone] Urea nitrogen 19 mg/dL [facility] Work Phone: [phone] WBC #/vol (Bld) 4.84 10*3/uL [facility] Work Phone: [phone] WBC (Leukocytes) 4.84 10*3/uL Invalid Interpretation Code [facility] Work Phone: [phone] Lab Report: Lipid Profileon 04-08-2015 very low density lipoproteins 35 mg/dL 5-40 [facility] Work Phone: [phone] Lab Report: Liver Profileon 04-08-2015 Bilirubin (direct) 0.12 mg/dL 0.00-0.30 [facility] Work Phone: [phone] Globulin 3.2 g/dL Invalid Interpretation Code 2.3-3.5 [facility] Work Phone: [phone] Globulin mass conc (S) 3.2 g/dL 2.3-3.5 [facility] Work Phone: [phone] Clinical Lists Update: 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 04-02-2014 Globulin 3.0 g/dL Invalid Interpretation Code [facility] Work Phone: [phone] Globulin mass conc (S) 3.0 g/dL [facility] Work Phone: [phone] External Other: Preferred Me thod of Contacton 04-02-2014 methcontact secmsg [facility] Work Phone: [phone] Patient's prefered method of contact secmsg Invalid Interpretation Code [facility] Work Phone: [phone] Lab Report: Liver Profileon 04-02-2014 ALK P 49 U/L Critically low 50-136 [facility] Work Phone: [phone] GE use only - for [employer] import when terms are not otherwise specified 49 U/L Critically low 50-136 [facility] Work Phone: [phone] Office Visiton 03-31-2014 cardiac risk group [facility] Work Phone: [phone] General cardiovascular disease 10Y risk [#] [place] [email or web address] Work Phone: Vital Signs Date Time Vital Sign Value Performing Clinician Alexa bedoya 12-24-2024 08:33-0400 Heart rate 58 /min Dr. Matt Saul MD Work Phone: [facility] 12-24-2024 08:26-0400 Body temperature 97.6 [degF] Dr. Matt Saul MD Work Phone: [facility] 12-24-2024 08:26-0400 Diastolic blood pressure 71 mm[Hg] Dr. Matt Saul MD Work Phone: 6(037)579-710179 [place] [address] 12-24-2024 08:26-0400 Respiratory rate 18 /min Dr. Matt Saul MD Work Phone: 5(760)397-494513 [address] 12-24-2024 08:26-0400 SaO2% (BldA) [Mass fraction] 95 % Dr. Matt Saul MD Work Phone: 6(736)204-482413 [address] 12-24-2024 08:26-0400 Systolic blood pressure 128 mm[Hg] Dr. Matt Saul MD Work Phone: 0(470)999-150013 [address] 12-23-2024 18:43-0400 Inhaled oxygen flow rate 2 L/min Dr. Matt Saul MD Work Phone: [facility] 12-23-2024 14:44-0400 Body height 182.[address] Matt Saul MD Work Phone: 4(532)221-160313 [address] 12-23-2024 14:44-0400 Body mass index (BMI) [Ratio] 26.9 kg/m2 Dr. Matt Saul MD Work Phone: 1(289)863-209679 [place] [address] 12-23-2024 14:44-0400 Body weight [address] Matt Saul MD Work Phone: 4(033)784-199655 [place] [address] 04-04-2024 14:18-0500 Body height 182.[address] Matt Saul MD Work Phone: 6(458)294-752213 [address] 04-04-2024 14:18-0500 Body mass index (BMI) [Ratio] 27.2 kg/m2 Dr. Matt Saul MD Work Phone: [facility] 04-04-2024 14:18-0500 Body weight 91.[address] Matt Saul MD Work Phone: [facility] 04-04-2024 14:18-0500 Diastolic blood pressure 90 mm[Hg] Dr. Matt Saul MD Work Phone: [facility] 04-04-2024 14:18-0500 Heart rate 69 /min Dr. Matt Saul MD Work Phone: [facility] 04-04-2024 14:18-0500 Respiratory rate 16 /min Dr. Matt Saul MD Work Phone: [facility] 04-04-2024 14:18-0500 Systolic blood pressure 132 mm[Hg] Dr. Matt Saul MD Work Phone: [facility] 02-19-2024 12:20-0500 Diastolic blood pressure 72 mm[Hg] Demetri Lord MD Work Phone: [facility] 02-19-2024 12:20-0500 Heart rate 55 /min Demetri Lord MD Work Phone: [facility] 02-19-2024 12:20-0500 Respiratory rate 16 /min Demetri Lord MD Work Phone: [facility] 02-19-2024 12:20-0500 SaO2% (BldA) [Mass fraction] 95 % Demetri Lord MD Work Phone: [facility] 02-19-2024 12:20-0500 Systolic blood pressure 115 mm[Hg] Demetri Lord MD Work Phone: [facility] 02-19-2024 10:40-0500 Body mass index (BMI) [Ratio] 27.18 kg/m2 Demetri Lord MD Work Phone: [facility] 02-19-2024 10:40-0500 Body temperature 98.4 [degF] Demetri Lord MD Work Phone: [facility] 02-19-2024 10:40-0500 Body weight 90.9 kg Demetri Lord MD Work Phone: [facility] 02-16-2024 14:03-0400 Body height 182.9 cm Maddie Jakob CONTINUITY CLERK.[employer] Work Phone: [facility] 02-16-2024 14:03-0400 Body mass index (BMI) [Ratio] 27.18 kg/m2 Maddie Jakob CONTINUITY CLERK.[employer] Work Phone: [facility] 02-16-2024 14:03-0400 Body temperature 97.81 [degF] Maddie Jakob CONTINUITY CLERK.[employer] Work Phone: [facility] 02-16-2024 14:03-0400 Body weight 90.9 kg Maddie Jakob CONTINUITY CLERK.[employer] Work Phone: [facility] 02-16-2024 14:03-0400 Diastolic blood pressure 82 mm[Hg] Maddie Jakob CONTINUITY CLERK.[employer] Work Phone: [facility] 02-16-2024 14:03-0400 Heart rate 80 /min Maddie Jakob CONTINUITY CLERK.[employer] Work Phone: [facility] 02-16-2024 14:03-0400 SaO2% (BldA) [Mass fraction] 92 % Maddie Jakob CONTINUITY CLERK.[employer] Work Phone: [facility] 02-16-2024 14:03-0400 Systolic blood pressure 138 mm[Hg] Maddie Jakob CONTINUITY CLERK.[employer] Work Phone: [facility] 08-18-2023 01:00-0400 Body temperature 98.5 [degF] Dr. Matt Saul Work Phone: [facility] 08-18-2023 01:00-0400 Diastolic blood pressure 91 mm[Hg] Dr. Matt Saul Work Phone: [facility] 08-18-2023 01:00-0400 Heart rate 59 /min Dr. Matt Saul Work Phone: [facility] 08-18-2023 01:00-0400 Respiratory rate 18 /min Dr. Matt Saul Work Phone: 0(966)391-405013 [address] 08-18-2023 01:00-0400 SaO2% (BldA) [Mass fraction] 98 % Dr. Matt Saul Work Phone: [facility] 08-18-2023 01:00-0400 Systolic blood pressure 148 mm[Hg] Dr. Matt Saul Work Phone: 6(853)932-384255 [place] [address] 08-17-2023 21:03-0400 Body height 182.[address] Matt Saul Work Phone: 6(375)611-970479 [place] [address] 08-17-2023 21:03-0400 Body mass index (BMI) [Ratio] 27.7 kg/m2 Dr. Matt Saul Work Phone: 6(040)102-039313 [address] 08-17-2023 21:03-0400 Body weight 92.[address] Matt Saul Work Phone: 5(031)258-094679 [place] [address] 05-17-2023 11:30-0500 Body mass index (BMI) [Ratio] 28.2 kg/m2 Dr. Matt Saul Work Phone: 7(231)255-169255 [place] [address] 05-17-2023 11:30-0500 Body temperature 97.8 [degF] Dr. Matt Saul Work Phone: 2(852)325-733155 [place] [address] 05-17-2023 11:30-0500 Body weight 94.[address] Matt Saul Work Phone: 1(021)950-328679 [place] [address] 05-17-2023 11:30-0500 Diastolic blood pressure 76 mm[Hg] Dr. Matt Saul Work Phone: 9(819)885-705213 [address] 05-17-2023 11:30-0500 Heart rate 71 /min Dr. Matt Saul Work Phone: [facility] 05-17-2023 11:30-0500 Respiratory rate 16 /min Dr. Matt Saul Work Phone: [facility] 05-17-2023 11:30-0500 SaO2% (BldA) [Mass fraction] 96 % Dr. Matt Saul Work Phone: [facility] 05-17-2023 11:30-0500 Systolic blood pressure 140 mm[Hg] Dr. Matt Saul Work Phone: [facility] 02-08-2023 13:58-0400 Body height 182.[address] Armond Saul Work Phone: 9(759)490-371613 [address] 02-08-2022 13:51-0400 Body height 182.[address] Armond Sual Work Phone: 6(469)335-386513 [address] 02-08-2022 13:51-0400 Body mass index (BMI) [Ratio] 26.9 kg/m2 Dr. Armond Saul Work Phone: 1(212)028-433455 [place] [address] 02-08-2022 13:51-0400 Body mass index (BMI) [Ratio] 28 kg/m2 Dr. Armond Saul Work Phone: [facility] 02-08-2022 13:51-0400 Body weight 90.[address] Armond Saul Work Phone: [facility] 02-08-2022 13:51-0400 Body weight 93.[address] Armond Saul Work Phone: [facility] 02-08-2022 13:51-0400 Diastolic blood pressure 91 mm[Hg] Dr. Armond Saul Work Phone: [facility] 02-08-2022 13:51-0400 Diastolic blood pressure 84 mm[Hg] Dr. Armond Saul Work Phone: [facility] 02-08-2022 13:51-0400 Heart rate 70 /min Dr. Armond Saul Work Phone: [facility] 02-08-2022 13:51-0400 Heart rate 67 /min Dr. Armond Saul Work Phone: [facility] 02-08-2022 13:51-0400 Respiratory rate 16 /min Dr. Armond Saul Work Phone: [facility] 02-08-2022 13:51-0400 Respiratory rate 18 /min Dr. Armond Saul Work Phone: [facility] 02-08-2022 13:51-0400 SaO2% (BldA) [Mass fraction] 95 % Dr. Armond Saul Work Phone: [facility] 02-08-2022 13:51-0400 SaO2% (BldA) [Mass fraction] 94 % Dr. Armond Saul Work Phone: [facility] 02-08-2022 13:51-0400 Systolic blood pressure 155 mm[Hg] Dr. Armond Saul Work Phone: [facility] 02-08-2022 13:51-0400 Systolic blood pressure 132 mm[Hg] Dr. Armond Saul Work Phone: [facility] 11-08-2016 13:10-0400 BMI (Body Mass Index) 28.87 kg/m2 [facility] Work Phone: 11-08-2016 13:10-0400 BP Diastolic 68 mm[Hg] [facility] Work Phone: 11-08-2016 13:10-0400 BP Systolic 130 mm[Hg] [facility] Work Phone: 11-08-2016 13:10-0400 Height 180.34 cm [facility] Work Phone: 11-08-2016 13:10-0400 Pulse (Heart Rate) 58 /min [facility] Work Phone: 11-08-2016 13:10-0400 Respiratory [...] Provider Facility Start: 02-26-2025 ambulatory Oneyda Solano Facility:[facility] Start: 01-15-2025 Registered Recurring Oneyda Solano PA -Physical Therapy Work Phone: Start: 01-06-2025 End: 01-06-[address] Matt Saul MD Work Phone: -Laboratory Specimen Start: 01-06-2025 End: 01-06-[address] Matt Saul MD -Laboratory Specimen Work Phone: Start: 01-06-2025 End: 01-06-2025 ambulatory Matt Saul Facility:[facility] Start: 12-26-2024 Encounter for other preprocedural examination [facility] Start: 12-26-2024 Encounter for preprocedural cardiovascular examination [facility] Start: 12-24-2024 Non-patient / Non-visit Dr. Yumiko Carrillo MD -[facility] Work Phone: Start: 12-23-2024 Non-patient / Non-visit [facility]. Mckeon [facility] Work Phone: Start: 12-23-2024 End: 12-24-2024 ambulatory Major Yi Facility:[facility] Start: 12-23-2024 End: 12-24-2024 Evaluation and management of inpatient Dr. Major Yi DO -Medical Surgical 3 Work Phone: Start: 12-23-2024 End: 12-24-[address] Matt Saul MD Work Phone: -Medical Surgical 3 Start: 11-27-2024 ambulatory Major Carrascoi ty:[facility] Start: 11-27-2024 Non-patient / Non-visit Dr. Seven Grey MD -[facility] Work Phone: Start: 11-26-2024 End: 11-26-[address] Matt Saul MD Work Phone: -Cat Scan [facility] Start: 11-26-2024 End: 11-26-[address] Major Yi DO -Cat Scan [facility] Work Phone: Start: 11-26-2024 End: 11-26-2024 ambulatory Major Yi Facility:[facility] Start: 07-09-2024 End: 07-09-2024 ambulatory Yang WGAGONER Facility:[facility] Start: 06-18-2024 End: 06-18-[address] Matt Saul MD Work Phone: [facility] Work Phone: Start: 06-18-2024 End: 06-18-[address] Matt Saul MD -Radiology, [place] Work Phone: Start: 06-18-2024 End: 06-18-2024 ambulatory Matt Colecarnegie Facility:[facility] Start: 04-04-2024 End: 04-04-[address] Nathan Purcell MD -[facility] Work Phone: Start: 04-04-2024 End: 04-04-2024 ambulatory Nathan Purcell Facility:[facility] Start: 02-26-2024 End: 02-26-[address] [facility] Facility:[facility] Start: 02-26-2024 End: 02-26-2024 Patient encounter procedure Maddie Bernstein APRN.[employer] Work Phone: General Surgery Comment on above: History of colonic p olyps (Primary Dx) Start: 02-19-2024 End: 02-19-[address] [facility] Facility:[facility] Start: 02-19-2024 End: 02-19-2024 Subsequent hospital visit by physician Demetri Lord MD Work Phone: Ambulatory Surgery Comment on above: History of colonic p olyps [Z86.0100] Start: 02-16-2024 End: 02-16-[address] [facility] Facility:[facility] Start: 02-16-2024 End: 02-16-2024 Patient encounter procedure Maddie Bernstein APRN.[employer] Work Phone: General Surgery Comment on above: History of colonic p olyps (Primary Dx); Screen for colon cancer Start: 02-16-2024 End: 03-18-2024 Telephone encounter Molly VEGA General Surgery Comment on above: 02-19-2024 Colonscoo py Start: 08-17-2023 End: 08-18-2023 Emergency department patient visit Dr. Matt Saul Work Phone: [facility]Emergency Department Work Phone: Start: 05-17-2023 End: 05-17-[address] Matt Saul Work Phone: [facility] Work Phone: Start: 03-15-2023 Non-patient / Non-visit Dr. Jabier Saul Work Phone: [facility] Work Phone: Start: 03-14-2023 Non-patient / Non-visit Dr. Jabier Saul Work Phone: [facility] Start: 03-14-2023 End: 03-14-[address] Armond Saul Work Phone: [facility] Work Phone: Start: 03-14-2023 End: 03-14-[address] Armond Saul Work Phone: [facility]Cardi[facility] Work Phone: Start: 02-08-2023 End: 02-08-[address] Armond Saul Work Phone: [facility] Work Phone: Start: 05-20-2022 Non-patient / Non-visit Dr. Jabier Saul Work Phone: [facility] Start: 05-17-2022 Non-patient / Non-visit Dr. Jabier Saul Work Phone: [facility] Start: 05-17-2022 End: 05-17-[address] Armond Saul Work Phone: [facility] Work Phone: Start: 05-17-2022 End: 05-17-[address] [facility]ond Saul [facility] Start: 05-04-[address] Rowdy Saul Work Phone: [facility] Start: 02-08-2022 End: 02-08-[address] Armond Saul Work Phone: [facility] Procedures Date Procedure Procedure [...] dx w/collj spec when pfrmd Maddie Bernstein CONTINUITY CLERK.[employer] Work Phone: Start: 02-19-2024 Colonoscopy Demetri abernathy [...] - S marciano or Plasma Maddie Bernstein APRN.[employer] Work Phone: Start: 03-31-2014 End: 04-02-2014 *Hepatic [...] P,Tdap,Td Vaccine (4 - Td or Tdap) [facility] Start: 02-18-2027 Screening for malign ant neoplasm of colon [facility] Start: 12-24-2024 Patient discharge [facility] Start: 12-23-2024 Care regimes management [facility] Start: 12-23-2024 Notification of physician [facility] Start: 12-23-2024 [facility] Start: 12-23-2024 Application of intermittent pneumatic compression device [facility] Start: 12-23-2024 Following clinical p athway protocol [facility] Start: 12-23-2024 Anes arthroscopic to bernard shoulder replacement ANESTH SHOULDER REPLACEMENT [facility] Start: 12-23-2024 Prosthetic total arthroplasty of left shoulder RECONSTRUCT SHOULDER JOINT [facility] Start: 12-23-2024 Admission procedure [facility] Start: 12-23-2024 Ambulation therapy management [facility] Start: 12-23-2024 Application of device [facility] Start: 12-23-2024 Assessment of risk o f venous thromboembolism [facility] Start: 12-23-2024 Catheterization of vein [facility] Start: 12-23-2024 Following clinical p athway protocol [facility] Start: 12-23-2024 Incentive spirometry [facility] Start: 12-23-2024 Introduction of urin angeline catheter [facility] Start: 12-23-2024 Measuring intake and output [facility] Start: 12-23-2024 Neurovascular assessment [facility] Start: 12-23-2024 Patient education [facility] Start: 12-23-2024 Procedure discontinued [facility] Start: 12-23-2024 Provision of activit y privileges [facility] Start: 12-23-2024 Recommendation to co ritika with treatment [facility] Start: 12-23-2024 Referral to occupati onal therapist [facility] Start: 12-23-2024 Vital signs measurements [facility] Start: 12-23-2024 Wound care [facility] Start: 12-23-2024 [facility] Start: 12-23-2024 Consultation [facility] Start: 02-26-2024 End: 02-26-2024 Patient encounter procedure 02/26/2024 1:00 PM EST Office Visit General Surgery [address] [place] [address] Maddie Bernstein APRN.[employer] [address] [place] [address] Colonsocopy follow up 02-19-2024 General Surgery Comment on above: Colonsocopy follow u p 02-19-2024 Start: 02-19-2024 End: 02-19-2024 Patient encounter procedure 02/19/2024 11:45 AM EST Appointment Ambulatory Surgery [address] [place] [address] Demetri Lord MD [address] [place] [address] Ambulatory Surgery Start: 08-18-2023 [facility] Start: 08-17-2023 [facility] Start: 07-01-2023 Screening for malign ant neoplasm of colon [facility] Start: 04-17-2023 Advance Directive Discussion Advance Directive Discussion [facility] Start: 03-21-2022 Diabetes Screening Diabetes Screenin g [facility] Start: 11-15-2021 Pneumococcal Vaccine : 65+ (2 of 2 - PPSV23 or PCV20) Pneumococcal Vaccine: 65+ (2 of 2 - PPSV23 or PCV20) [facility] Start: 04-02-2019 Lipid panel Lipid Screening [facility] Start: 05-11-2017 End: 05-11-2017 Appointment Appointment [facility] Work Phone: Start: 11-08-2016 End: 11-08-2016 Appointment Appointment [facility] Work Phone: Start: 11-08-2016 End: 11-08-2016 *Hepatic Function Panel *Hepatic Function Panel [facility] Work Phone: Start: 11-08-2016 End: 11-08-2016 GERRY GARRETT [facility] Work Phone: Start: 11-08-2016 End: 11-08-2016 Follow Up Appt 6 months Follow Up Appt 6 months [facility] Work Phone: Start: 11-08-2016 End: 11-08-2016 Lipid 1996 panel *Lipid Profile CC PCP [facility] Work Phone: Start: 10-19-2016 End: 11-08-2016 *Hepatic Function Panel *Hepatic Function Panel [facility] Work Phone: Start: 10-19-2016 [...] Lipid panel [AGGREGATE] *Lipid Profile CC PCP [facility] Work Phone: Start: 03-31-2015 End: 04-08-2015 *Hepatic Function Panel *Hepatic Function Panel [facility] Work Phone: Start: 03-31-2015 End: 03-31-2015 GERRY GARRETT [facility] [facility] Work Phone: Start: 03-31-2015 End: 03-31-2015 Follow Up Appt 1 year Follow Up Appt 1 year [facility] Work Phone: Start: 03-31-2015 End: 04-08-2015 Lipid panel [AGGREGATE] *Lipid Profile CC PCP [facility] Work Phone: Start: 12-29-2014 End: 12-30-2014 Stress Echocardiogram (treadmill) Stress Echocardiogram (treadmill) [facility] Work Phone: Start: 03-31-2014 End: 04-02-2014 *Hepatic Function Panel *Hepatic Function Panel [facility] Work Phone: Start: 03-31-2014 End: 03-31-2014 GERRY GERRY [facility] Work Phone: Start: 03-31-2014 End: 03-31-2014 Follow Up Appt 1 year Follow Up Appt 1 year [facility] Work Phone: Start: 03-31-2014 End: 04-02-2014 Lipid panel [AGGREGATE] *Lipid Profile CC PCP [facility] Work Phone: Start: 03-31-2014 End: 03-31-2014 Stress Echocardiogram (treadmill) Stress Echocardiogram (treadmill) [facility] Work Phone: Start: 06-10-2013 End: 06-10-2013 GERRY GERRY [facility] Work Phone: Start: 06-10-2013 End: 06-10-2013 Follow Up Appt 1 year Follow Up Appt 1 year [facility] Work Phone: Start: 03-25-2013 End: 03-25-2013 GERRY GERRY [facility] Work Phone: Start: 03-25-2013 End: 03-25-2013 Follow Up Appt 1 year Follow Up Appt 1 year [facility] Work Phone: Start: 08-07-2005 Hepatitis B surface antibody level LDL Cholesterol [facility] Start: 1993 Screening for malign ant neoplasm of colon [facility] Start: 1966 Annual PCP Team Insurance Administrative Assistant kavin Disease Visit Annual PCP Team Chronic Disease Visit [facility] Start: 1966 BP Controlled (<130/80) BP Controlle d (<130/80) [facility] Start: 1966 Depression Screening Depression Scre ening [facility] Start: 1966 Hepatitis C screening Hepatitis C Sc [facility] Patient Education [facility] Work Phone: Patient referral [facility] Work Phone: End: 02-15-2025 Screening colonoscopy COLONOSCOPY SCREENING Endoscopy Routine History of colonic polyps Screen for colon cancer 1 Occurrences starting 02/16/2024 until 02/15/2025 [facility] Work Phone: Comment on above: 1 Occurrences starti ng 02/16/2024 until 02/15/2025 SURGICAL PATHOLOGY [facility] Work Phone: Comment on above: Release Upon Orderin g for 1 Occurrences starting 02/19/2024, 1 completed Immunizations Immunization Date Immunization Notes Care Provider Fa cility 07-13-2020 Covid (Moderna) Dr. Selena Saul Work Phone: [facility] 06-15-2020 Kia (Moderna) Dr. Selena Saul Work Phone: [facility] 01-30-2014 influenza, seasonal, injectable Maddie Jakob CONTINUITY CLERK.UNDERWATER HUNTER Work Phone: [facility] Work Phone: 02-09-2013 influenza virus vaccine, unspecified formulation Maddie Jakob CONTINUITY CLERK.UNDERWATER HUNTER Work Phone: [facility] 06-11-2012 tetanus toxoid, reduced diphtheria toxoid, and acellular pertussis vaccine, adsorbed Maddie Jakob CONTINUITY CLERK.UNDERWATER HUNTER Work Phone: [facility] 06-11-2012 zoster vaccine, live Kimberl ey Jakob CONTINUITY CLERK.UNDERWATER HUNTER Work Phone: [facility] 02-05-2011 influenza virus vaccine, unspecified formulation Maddie Jakob CONTINUITY CLERK.UNDERWATER HUNTER Work Phone: [facility] 01-26-2010 influenza virus vaccine, unspecified formulation Maddie Jakob CONTINUITY CLERK.UNDERWATER HUNTER Work Phone: [facility] Work Phone: 01-21-2009 influenza virus vaccine, unspecified formulation Maddie Jakob CONTINUITY CLERK.UNDERWATER HUNTER Work Phone: [facility] Work Phone: 02-21-2008 influenza virus vaccine, unspecified formulation Maddie Jakob CONTINUITY CLERK.UNDERWATER HUNTER Work Phone: [facility] Work Phone: 02-20-2007 influenza virus vaccine, unspecified formulation Maddie Jakob HALL Work Phone: [facility] 07-21-2003 tetanus and diphther ia toxoids, adsorbed, preservative free, for adult use (2 Lf of tetanus toxoid and 2 Lf of diphtheria toxoid) Maddie Jakob HALL Work Phone: [facility] Payers Date Payer Category Payer Self-pay [id number] 2017 Private Health Insurance AETNA S UPPLEMENT AETNA MEDICARE SUPPLEMENT [id number] 2017-Present [phone] [address] [address] [place] [address] Indemnity [id number] 2017 Private Health Insurance [facility] [id number] 2014 Unknown [id number] 2013 Medicare MEDICARE MEDICAR E A AND B [id number] 2013-Present [phone] [address] [address] [place] [address] Medicare [id number] 2013 Medicare [id number] Unknown [id number] Unknown [id number] Unknown [id number] Unknown [id number] Unknown [id number] Unknown [id number] Unknown [id number] Unknown [id number] Unknown [id number] Unknown [id number] Unknown [id number] Social History Date Type Detail Facility Start: 02-08-2022 End: 08-17-2023 Tobacco smoking status PRIS Unknown if ever smoked [facility] Start: 1950 Sex Assigned At Male [facility] Start: 07-20-2017 End: 12-03-2024 Tobacco smoking status PRIS Never smoked tobacco [facility] Start: 07-20-2017 Tobacco use and exposure Smokeless tobacco non-user [facility] Start: 02-16-2024 End: 02-23-2024 Alcoholic beverage intake Current non-drinker of alcohol (finding) [facility] Start: 02-16-2024 End: 02-19-2024 History of Social function [facility] Start: 02-16-2024 End: 02-19-2024 Tobacco use panel [facility] National Score (1-10 0), lower number is lower risk 75 [facility] Start: 1950 [facility] Start: 07-03-2024 Sex Male (finding) [facility] Medical Equipment Procedure Code Equipment Code Equipment Origin al Text Equipment Identifier Dates GLENOSPHERE FDA Start: 12-23-2024 HUMERAL STEM FDA Start: 12-23-2024 HUMERAL SYSTEM FDA Start: 09-08-2025 LATERALIZED BASEPLATE FDA Sta rt: 12-23-2024 SCREW FDA Start: 12-23-2024 SHORT POST FDA Start: 12-23-2024 Goals Date Patient Goal Desired Activity /State Functional Status Date Assessment Result Facility 12-24-2024 Functional status Ambulates [facility] Work Phone: Mental Status Date Assessment Result Facility 12-24-2024 Cognitive function Level Of Cons ciousness Awake;Alert;Appropriate;Follow s Commands [facility] Work Phone: 12-24-2024 Cognitive function Voice/Name [facility] Work Phone: 08-17-2023 Cognitive function Voice/Name [facility] Work Phone: Clinical Notes 08-17-2006 to 12-24-2024 Note Date & Type Note Facility 12-24-2024 Discharge summary Note Date/Time December 24, 2024 11:59am [facility] Medical Records Department [address] [place] [address] Discharge Summary 12/24/24 1018 MR#: [id number] Acct: [id number] Name: MARIA E GUTHRIE Rep #:[id number] : 1950 74 From: Oneyda WAGGONER PCP: Dr. Matt Saul MD Status :ADM BAR Location: [place] [address] Providers Date of Admission: 12/23/24 Date of [...] IMPRESSION: Right shoulder reverse arthroplasty. Reading Location: [place] [address] D/C Instructions Discharge Activity: May Shower Weight [...] Dr. Matt Saul MD; EDILSON Diaz~ Signed [facility] Work Phone: 1(583) 274-634009-09-2025 Discharge summary [facility] Medical Records Department [address] [place] [address] Discharge Summary 12/24/24 1018 MR#: [id number] Acct: [id number] Name: MARIA E GUTHRIE Rep #:[id number] : 1950 74 From: Oneyda WAGGONER PCP: Dr. Matt Saul MD Status :ADM BAR Location: [place] [address] Providers Date of Admission: 12/23/24 Date of [...] IMPRESSION: Right shoulder reverse arthroplasty. Reading Location: [place] [address] D/C Instructions Discharge Activity: May Shower Weight [...] Dr. Matt Saul MD; EDILSON Diaz~ Signed [facility]09-09-2025 Progress note Author Major Carrillo [facility] Note Date/Time December 24, 2024 9:42am [facility] Medical Records Department [address] [place] [address] Progress Note - Hospitalist 12/24/24913 MR#: [id number] Acct: [id number] Name: MARIA E GUTHRIE Rep #:[id number] : 1950 74 From: Major mathews MD PCP: Dr. Matt Saul MD Status :ADM BAR Location: [place] [address]-1 Subjective Subjective Doing well, pain is controlled [...] IMPRESSION: Right shoulder reverse arthroplasty. Reading Location: [place] [address] Physical Exam Narrative General: Alert, Oriented x3, [...] with questions Charges/Coding Visit Charges Inpatient E&M: 37524 Subs Hosp L2 12/24/24 0942 <Electronically signed by Major Carrillo MD> Cosigner Signature (if applicable): CC: ~ Signed ADDENDUM by Dr. Major Carrillo MD on 12/24/24 at 0942 Visit Charges Office Visits / Consults: 86189 OV L3 Est 20min 12/24/24 0942<Electronically signed by Major Carrillo MD> Cosigner Signature (if applicable): cc: ~* Signed [facility] Work Phone: 1(424) 364-542709-09-[address] [facility] Medical Records Department [address] [place] [address] Discharge Summary 12/24/24 1018 MR#: [id number] Acct: [id number] Name: MARIA E GUTHRIE Rep #: [id number] : 1950 74 From: Oneyda WAGGONER PCP: Dr. Matt Saul MD Status:ADM BAR Location: [address] Providers Date of Admission: 12/23/24 Date [...] 20 H, Creatinine 1.01 (more content not included)...[facility]09-09-[address] [facility] Medical Records Department [address] [place] [address] Progress Note - Hospitalist 12/24/24913 MR#: [id number] Acct: [id number] Name: MARIA E GUTHRIE Rep #:[id number] : 1950 74 From: Major mathews MD PCP: Dr. Matt Saul MD Status :ADM BAR Location: [place] [address] Subjective Subjective Doing well, pain is controlled [...] IMPRESSION: Right shoulder reverse arthroplasty. Reading Location: [place] [address] Physical Exam Narrative General: Alert, Oriented x3, [...] with questions Charges/Coding Visit Charges Inpatient E&M: 78792 Subs Hosp L2 12/24/24 0942 Cosigner Signature (if applicable): CC: ~ Signed ADDENDUM by Dr. Major Carrillo MD on 12/24/24 at 0942 Visit Charges Office Visits / Consults: 42563 OV L3 Est 20min 12/24/24 0942 Cosigner Signature (if applicable): cc: ~* Signed [facility]09-08-2025 Consult note Author Hansel Sultana [facility] Note Date/Time December 23, 2024 8:16pm [facility] Medical Records Department [address] [place] [address] Consultation - Hospitalist 12/23/24 1608 MR#: [id number] Acct: [id number] Name: MARIA E GUTHRIE Rep #:[id number] : 1950 74 From: Hansel foreman DO PCP: Dr. Matt Saul MD Status :ADM BAR Location: [place] [address] Assessment & Plan Assessment/Plan (1) Right rotator cuff tear arthropathy: PLAN: Plan Patient is a 74-year-old male who presented to [facility] on 12/23/2024 for planned right shoulder [...] is a 74 M who presented to [facility] on 12/23/2024 for planned orthopedic procedure. [...] acute concerns at this time. 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 Reading Location: [place] [address] Charges/Coding Visit Charges Inpatient E&M: 33404 Subs Hosp L2 12/23/242015 <Electronically signed by Hansel Sultana DO> Cosigner Signature (if applicable): CC: Dr. Matt Saul MD; Dr. Major Yi DO~ Signed [facility] Work Phone: 1(844) 771-733709-08-[address] [facility] Medical Records Department [address] [place] [address] Consultation - Hospitalist 12/23/24 1608 MR#: [id number] Acct: [id number] Name: MARIA E GUTHRIE Rep #:[id number] : 1950 74 From: Hansel foreman DO PCP: Dr. Matt Saul MD Status :ADM BAR Location: [place] [address] Assessment & Plan Assessment/Plan (1) Right rotator cuff tear arthropathy: PLAN: Plan Patient is a 74-year-old male who presented to [facility] on 12/23/2024 for planned right shoulder [...] is a 74 M who presented to [facility] on 12/23/2024 for planned orthopedic procedure. [...] acute concerns at this time. 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 Reading Location: [place] [address] Charges/Coding Visit Charges Inpatient E&M: 33978 Subs Hosp L2 12/23/242015 Cosigner Signature (if applicable): CC: Dr. Matt Saul MD; Dr. Major Yi, DO~ Signed [facility]09-08-2025 Consult note Author Osei Lubin [facility] Note Date/Time December 23, 2024 2:33pm [facility] Medical Records Department [address] [place] [address] Anesthesia Postop Eval II 12/23/24 1433 MR#: [id number] Acct: [id number] Name: MARIA E GUTHRIE Rep #:[id number] : 1950 74 From: Osei Choudhury PCP: Dr. Matt Saul MD Status :ADM BAR Y Race: C Location: [place] [address] Anesthesia Postop Eval I Sum Postop Eval Completion status Anesthesia document: Postop Eval 1 completed: Yes Anesthesia Postop Eval I Summary Anesthesia Postop Eval I Summary: Anesthesia Postop Eval I: Assessment Summary Airway patent Yes 12/23/24 13:32 ONCOLOGY ACCOUNT SPECIALIST.CSIR Spontaneous unlabored Yes 12/23/24 13:32 ONCOLOGY ACCOUNT SPECIALIST.CSIR respirations Mental status nausea No 12/23/24 13:32 ONCOLOGY ACCOUNT SPECIALIST.CSIR Vomiting No 12/23/24 13:32 ONCOLOGY ACCOUNT SPECIALIST.CSIR Anesthesia Postop Eval I: Fluid Summary Crystalloid volume administer 1,300 12/23/24 13:32 ONCOLOGY ACCOUNT SPECIALIST.CSIR (ml) Colloids volume administered ( ml) Blood Product volume administered (ml) Total IV fluid infused 1,300 12/23/24 13:32 ONCOLOGY ACCOUNT SPECIALIST.CSIR Anesthesia Postop Eval I: Summary Notes Anesthesia Complication No 12/23/24 13:32 ONCOLOGY ACCOUNT SPECIALIST.CSIR Anesthesia Complication Comment: Post-operative progress note Anesthesia: Postop Eval II Evaluation Mental status: Awake and Calm Pain Level: 1 nausea: No Vomiting: No Complications Anesthesia Complication: No 12/23/24 1433 <Electronically signed by Osei Lubin MD> Date _ Osei Lubin MD Cosigner Signature: Date CC: ~ Signed [facility] Work Phone: 1(551) 695-674209-08-2025 Consult note Author Priscilla Willard [facility] Note Date/Time December 23, 2024 1:33pm [facility] Medical Records Department [address] [place] [address] Anesthesia Postop Eval I 12/23/24 1332 MR#: [id number] Acct: [id number] Name: MARIA E GUTHRIE Rep #:[id number] : 1950 74 From: Priscilla Willard CRNA PCP: Dr. Matt Saul MD Status :REG SDC Y Race: C Location: [place] [address] Anesthesia: Postop Eval I Current Vital Signs [...] Priscilla cruz CRNA> Date _ Priscilla Willard ONCOLOGY ACCOUNT SPECIALIST Cosigner Signature: Date CC: ~ Signed [facility] Work Phone: 1(565) 129-891709-08-2025 Evaluation note* Diagnosis Onset Date Resolution Status Admit Date Right rotator cuff tear arthropathy acute December 23 1:06pm Status post reverse total arthroplasty of right shoulder acute S epte2024 1:06pm [facility] Work Phone: 1(988) 368-559609-08-2025 Evaluation note* Diagnosis Onset Date Resolution Status Admit Date Right rotator cuff tear arthropathy inactive Maureen 8th, 2 025 1:06pm Status post reverse total arthroplasty of right shoulder inactive December 23 1:06pm [facility] Work Phone: 1(271) 290-163309-08-2025 Consult note [facility] Medical Records Department [address] [place] [address] Anesthesia Postop Eval II 12/23/24 1433 MR#: [id number] Acct: [id number] Name: MARIA E GUTHRIE Rep #:[id number] : 1950 74 From: Osei Choudhury PCP: Dr. Matt Saul MD Status :ADM BAR Y Race: C Location: [address] Anesthesia Postop Eval I Sum Postop Eval Completion status Anesthesia document: Postop Eval 1 completed: Yes Anesthesia Postop Eval I Summary Anesthesia Postop Eval I Summary: Anesthesia Postop Eval I: Assessment Summary Airway patent Yes 12/23/24 13:32 ONCOLOGY ACCOUNT SPECIALIST.CSIR Spontaneous unlabored Yes 12/23/24 13:32 ONCOLOGY ACCOUNT SPECIALIST.CSIR respirations Mental status nausea No 12/23/24 13:32 ONCOLOGY ACCOUNT SPECIALIST.CSIR Vomiting No 12/23/24 13:32 ONCOLOGY ACCOUNT SPECIALIST.CSIR Anesthesia Postop Eval I: Fluid Summary Crystalloid volume administer 1,300 12/23/24 13:32 ONCOLOGY ACCOUNT SPECIALIST.CSIR (ml) Colloids volume administered ( ml) Blood Product volume administered (ml) Total IV fluid infused 1,300 12/23/24 13:32 ONCOLOGY ACCOUNT SPECIALIST.CSIR Anesthesia Postop Eval I: Summary Notes Anesthesia Complication No 12/23/24 13:32 ONCOLOGY ACCOUNT SPECIALIST.CSIR Anesthesia Complication Comment: Post-operative progress note Anesthesia: Postop Eval II Evaluation Mental status: Awake and Calm Pain Level: 1 nausea: No Vomiting: No Complications Anesthesia Complication: No 12/23/24 1433 MD> Date _ Osei Lubin MD Cosigner Signature: Date CC: ~ Signed [facility]09-08-2025 Radiology Diagnostic study note [facility] Imaging Services [address] [place] [address] Shoulder min 2 Views MR#: [id number] Acct: [id number] Name: MARIA E GUTHRIE Rep #: [id number] : 1950 M 74 From: Zhou Suárez MD PCP: Dr. Matt Saul MD Status: REG [facility] Study:Shoulder min 2 Views Date of Exam: 12/23/24 Exam# [id number] Ordering Dr: Major Yi DO PROCEDURE: SHOULDER [...] IMPRESSION: Right shoulder reverse arthroplasty. Reading Location: [place] [address] CC: Dr. Matt Saul MD; Dr. Major Yi DO ~ Ventilated Rib Fitter: Signed [facility]09-08-2025 Consult note [facility] Medical Records Department [address] [place] [address] Anesthesia Postop Eval I 12/23/24 1332 MR#: [id number] Acct: [id number] Name: MARIA E GUTHRIE Rep #:[id number] : 1950 74 From: Priscilla Willard CRNA PCP: Dr. Matt Saul MD Status :[facility] Y Race: C Location: [place] [address] Anesthesia: Postop Eval I Current Vital Signs Temperature: 97 F Pulse Rate: 89 Blood Pressure: 145/87 Respiratory Rate: 18 Pulse Ox: 93 Assessment Airway patent: Yes Spontaneous unlabored respirations: Yes nausea: No Vomiting: No Anesthesia Complication: No Fluid Hydration Crystalloid volume administer (ml): 1,300 Total IV fluid infused: 1,300 Progress Note Anesthesia document: Postop Eval 1 completed: Yes 12/23/24 1333 a ONCOLOGY ACCOUNT SPECIALIST> Date _ Priscilla Willard ONCOLOGY ACCOUNT SPECIALIST Cosigner Signature: Date CC: ~ Signed [facility]09-08-2025 Procedure note [facility] Medical Records Department [address] [facility] [place] [address] Operative Report 12/23/24 1322 MR#: [id number] Acct: [id number] Name: MARIA E GUTHRIE Rep #:[id number] : 1950 74 From: Major lake DO PCP: Dr. Matt Saul MD Status :[facility] Location: [place] [address] Operative Report (Standard) Operative Information Date of Procedure: 12/23/24 Pre-Operative Diagnosis: Right shoulder rotator cuff tear arthropathy Post-Operative Diagnosis: Right shoulder rotator cuff tear arthropathy Surgery/Procedure Performed: Right reverse total shoulder arthroplasty engineering manager electronics: Yes Paint Line Production Supervisor: Oneyda Solano Tasks completed by medical practice assistant: Opening & closing, Implanting device, Hemostasis: [...] No Description of surgery: Patient arrived to [facility] morning of the procedure and was [...] positioned in the beachchair position. A well-padded lab head was applied. The nonoperative extremity was [...] appropriate depth with good press-fit purchase. A [place] was used to confirm depth. Cortical screws [...] operative suite. He was transferred to the rcarnegie and subsequently to PACU in stable condition. Need for skilled assistant chief of police: Oneyda Solano PA-C was critical to the outcome of thecase. During the course of the procedure the physician assistant chief of police played a vitalrole. Her intimate knowledge of [...] Mechan Device Prophylaxis: SCD's and Knee High EJSE Hose VTE Pharm Prophylaxis ordered?: Yes 12/23/24 1328 Cosigner Signature (if applicable): CC: Dr. Matt aSul MD; Dr. Major Yi, DO~ Signed [facility]09-08-2025 Consult note Author Osei Lubin [facility] Note Date/Time December 23, 2024 10:57am [facility] Medical Records Department [address] [place] [address] Pre-Anesthesia Evaluation 12/23/24 1052 MR#: [id number] Acct: [id number] Name: MARIA E GUTHRIE Rep #:[id number] : 1950 74 From: Osei Choudhury PCP: Dr. Matt Saul MD Status :REG [facility] Y Race: C Location: [place] [address] ASA Classification* ASA Classification ASA Classification: 2 [...] SHOULDER ARTHROPLASTY Anesthesia History Anesthesia History - senior visual designer: Anesthesia History - senior visual designer Hx Hospitalization No 12/03/24 10:59 Any Problems [...] take am of surgery PONV PONV - senior visual designer: PONV - senior visual designer Female No 12/03/24 10:59 HX of Motion [...] 12/23/24 10:31 Respiratory Assessment Respiratory Assessment - senior visual designer: Respiratory Tract Infection Hx - senior visual designer Hx Respiratory Tract Infection No 12/03/24 10:59 STOP Sleep Apnea STOP Sleep Apnea - senior visual designer: STOP Sleep Apnea - senior visual designer Hx Hypertension Yes: CONTROLLED WITH MED 12/03/24 [...] Tobacco Use History Tobacco Use History - senior visual designer: Tobacco Use History - senior visual designer Tobacco Use Smoking Status Never smoker 12/03/24 10:59 Hx Tobacco Use No 12/03/24 10:59 Years Smoking Packs Smoked per Day Smoking Cessation Date was within the last 15 years Hx Smoking Cessation Date Hx Smoking Cessation Counseling Hematologic Medial History Hematologic Hx - senior visual designer: Hematologic Medical Hx - clearing supervisor Hx of Blood Transfusion No 12/03/24 [...] confused, unrespo /Reproduction History /Reproductive History - senior visual designer: /Reproductive Hx- senior visual designer Hx Now No 12/03/24 10:59 Gestational Age [...] Osteoarthritis Gout Atherosclerosis of coronary artery 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 Matt Saul MD Status :REG SDC Y Race: C Location: [place] [address] ASA Classification* ASA Classification ASA Classification: 2 [...] SHOULDER ARTHROPLASTY Anesthesia History Anesthesia History - senior visual designer: Anesthesia History - senior visual designer Hx Hospitalization No 12/03/24 10:59 Any Problems [...] take am of surgery PONV PONV - senior visual designer: PONV - senior visual designer Female No 12/03/24 10:59 HX of Motion [...] 12/23/24 10:31 Respiratory Assessment Respiratory Assessment - senior visual designer: Respiratory Tract Infection Hx - senior visual designer Hx Respiratory Tract Infection No 12/03/24 10:59 STOP Sleep Apnea STOP Sleep Apnea - senior visual designer: STOP Sleep Apnea - senior visual designer Hx Hypertension Yes: CONTROLLED WITH MED 12/03/24 [...] Tobacco Use History Tobacco Use History - senior visual designer: Tobacco Use History - senior visual designer Tobacco Use Smoking Status Never smoker 12/03/24 10:59 Hx Tobacco Use No 12/03/24 10:59 Years Smoking Packs Smoked per Day Smoking Cessation Date was within the last 15 years Hx Smoking Cessation Date Hx Smoking Cessation Counseling Hematologic Medial History Hematologic Hx - senior visual designer: Hematologic Medical Hx - clearing supervisor Hx of Blood Transfusion No 12/03/24 [...] confused, unrespo /Reproduction History /Reproductive History - senior visual designer: /Reproductive Hx- senior visual designer Hx Now No 12/03/24 10:59 Gestational Age [...] Osteoarthritis Gout Atherosclerosis of coronary artery of three affiliated heart without angina pectoris Hyperlipidemia Home Medications [...] Type Severity Reaction Status Date / Time Qhpdgbs-VZB-ZrZ Reductase AdvReac Mild myalgias Verified 12/23/24 10:26 Inhibitor (Kifukfe-Kwz-Ces Reductase Inhibitor) Family History Brother CAD (coronary [...] MD Cosigner Signature: Date CC: ~ Signed [facility]08-14-2025 Radiology Diagnostic study note [facility] Imaging Services [address] [place] [address] Extremity Upper without Contra MR#: [id number] Acct: [id number] Name: MARIA E GUTHRIE Rep #: [id number] : 1950 M 74 From: Sean Garcia MD PCP: Dr. Matt Saul MD Status: REG CLI Study:Extremity Upper without Contra Date of Exam: 11/26/24 Exam# [id number] Ordering Dr: Major Yi DO PROCEDURE: EXTREMITY [...] Saul MD; Dr. Major Yi DO ~ Ventilated Rib Fitter: Signed [facility]03-04-2025 Radiology Diagnostic study note [facility] Imaging Services [address] [place] [id number] Ankle min 3 Views MR#: [id number] Acct: [id number] Name: MARIA E GUTHRIE Rep #: [id number] : 1950 M 74 From: Shannon Joshua MD PCP: Dr. Matt Saul MD Status: REG CLI Study:Ankle min 3 Views Date of Exam: Exam# [id number] Ordering Dr: Luna Saul MD EXAM: XR [...] evaluation with CT is recommended. Reading Location[facility] CC: Dr. Matt Saul MD ~ Ventilated Rib Fitter: Signed [facility]03-04-2025 Radiology Diagnostic study note [facility] Imaging Services [address], [place] [address] Foot min 3 Views MR#: [id number] Acct: [id number] Name: MARIA E GUTHRIE Rep #: [id number] : 1950 M 74 From: Laurent Alva MD PCP: Dr. Matt Saul MD Status: REG CLI Study:Foot min 3 Views Date of Exam: 08/09 Exam# [id number] Ordering Dr: Luna Saul MD PROCEDURE: FOOT [...] suggestive of gout. Calcaneal spurs. Reading Location: [id number] CC: Dr. Matt Saul MD ~ Ventilated Rib Fitter: Signed [facility]12-19-2024 Evaluation note* Diagnosis Onset Date Resolution Status Admit Date Essential hypertension chronic De cember 2023 2:13pm History of coronary artery stent placement August 17, 2006 chronic April 04, 2 024 2:13pm Hyperlipidemia chronic March 172023 2:13pm [facility] Work Phone: 1(601) 468-696311-11-2024 History of Present illness Narrative* Maddie Bernstein APRN.UNDERWATER HUNTER - 02/26/2024 1:00 PM EST FOLLOW UP VISIT - ENDOSCOPY Maria E Guthrie 1950 [id number] REFERRING PHYSICIAN: Matt Saul (Rashida) [address] [facility] [address] Maria E Guthrie is a patient I [...] as needed for worsening/no improvement. Maddie Bernstein APRN.[facility]DERWATER HUNTER documented [facility]-2024 NoteHNO ID: [id number] Author: MADDIE BERNSTEIN APRN.[employer]DERWATER HUNTER Service: ? Author Type: Nurse Practitioner Type: Progress Notes Filed: 02/26/2024 13:03 Note Text: FOLLOW UP VISIT - ENDOSCOPY Maria E Guthrie 1950 [id number] REFERRING PHYSICIAN: Matt Saul (Rashida) [address] [place] [address] Maria E Guthrie is a patient I [...] as needed for worsening/no improvement. Maddie Bernstein APRN.[facility]11-04-2024 Note* Discharge Instr - Nursing - Estelle Bird RN - 02/19/2024 12:17 PM EST The patient received a copy of Colonoscopy discharge instructions that contain information for how to contact the physician who performed the procedure and when to seek medical care. [facility]11-04-2024 Miscellaneous Notes* Discharge Instr - Nursing - Estelle Bird RN - 02/19/2024 12:17 PM EST The patient received a copy of Colonoscopy discharge instructions that contain information for how to contact the physician who performed the procedure and when to seek medical care. documented in this encounterSam[facility]11-04-2024 NoteHNO ID: [id number] Author: ESTELLE BIRD RN Service: ? Author Type: Registered Nurse Type: Nursing Progress Note Filed: 02/19/2024 12:15 Note Text: Abdomen soft non-distended. Will continue to monitor.[facility] 02-19-2024 Nurse Note* Estelle Bird RN - 02/19/2024 12:00 PM EST Abdomen soft non-distended. Will continue to monitor. [facility]11-04-[facility] Nurse Note* Estelle Bird RN - 02/19/2024 12:00 PM EST Abdomen soft non-distended. Will continue to monitor. documented in this encounterSam[facility]11-04-2024 History and physical note * Demetri [...] Last colonoscopy 06/[address] Park at [facility]. Sedation:Midazolam 5 mg IV, Fentanyl 100 micrograms [...] (FLONASE) 50 mcg/actuation nasal spray Use 1 Wallagrass in the nose once daily. cyanocobalamin (VITAMIN [...] entered by the nurse and reviewed by hi Nursing Notes: Francisca Spann RN 02/16/2024 2:03 [...] edited and updated as necessary. Maddie Bernstein APRN.[employer]TER UPDATED HISTORY AND PHYSICAL EXAMINATION SERVICE DATE: 02/19/2024 SERVICE TIME: 10:53 AM SENSITIVE EXAMINATION CONSENT: The sensitive examination was discussed with the Patient or Patient's Authorized Consular Officer. Asapplicable, any other physician, advance practice provider, medical student, or other health professional student that will be observing or involved in the sensitive examination for educational or training purposes was discussed with the Patient or Authorized Consular Officer. The Patient or Authorized Consular Officer has agreed to proceed with the sensitive [...] DATE: February 19, 2024 TIME: 10:53 AM [facility]11-04-[facility] History and physical note* Demetri Lord [...] Last colonoscopy 06/[address] Park at [facility]. Sedation:Midazolam 5 mg IV, Fentanyl 100 micrograms [...] (FLONASE) 50 mcg/actuation nasal spray Use 1 Wallagrass in the nose once daily. cyanocobalamin (VITAMIN [...] entered by the nurse and reviewed by hi Nursing Notes: Frnacisca Spann RN 02/16/2024 2:03 PM Signed REVIEW [...] discussed with the Patient or Patient's Authorized Consular Officer. Asapplicable, any other physician, advance practice provider, medical student, or other health professional student that will be observing or involved in the sensitive examination for educational or training purposes was discussed with the Patient or Authorized Consular Officer. The Patient or Authorized Consular Officer has agreed to proceed with the sensitive [...] 2024 TIME: 10:53 AM documented in this encounterSam[facility]11-01-2024 Telephone encounter Note * Telephone Encounter - Melanie Marcelino - 02/16/2024 2:34 PM EDT 02-19-2024 Colonoscopy concepción [facility] Joyytejolly prep, nurse went over instructions yudy has direct number to contact for any questions or concerns., Instructed patient to arrive at 1045 in [facility]11-01-2024 Miscellaneous Notes* Telephone Encounter - Melanie Marcelino - 02/16/2024 2:34 PM EDT 02-19-2024 Colonoscopy concepción ASC Joyytejolly prep, nurse went over instructions yudy has direct number to contact for any questions or concerns., Instructed patient to arrive at 1045 in ASC documented in this encounterSam[facility]11-01-2024 Nurse Note* Francisca Spann, RN - [...] N/A Last Colonoscopy: 07/10/2020 Francisca Spann RN [facility]11-01-2024 History of Present illness Narrative* Maddie Bernstein APRN.UNDERWATER HUNTER - 02/16/2024 2:00 PM EDT HISTORY AND [...] Last colonoscopy 06/[address] Park at [facility]. Sedation:Midazolam 5 mg IV, Fentanyl 100 micrograms [...] (FLONASE) 50 mcg/actuation nasal spray Use 1 Wallagrass in the nose once daily. cyanocobalamin (VITAMIN [...] entered by the nurse and reviewed by hi Nursing Notes: Francisca Spann RN 02/16/2024 2:03 [...] necessary. Maddie Bernstein APRN.BALJIT documented in this encounterSam[facility]11-01-2024 NoteHNO ID: [id number] Author: MADDIE BERNSTEIN APRN.CNP Service: ? Author [...] Last colonoscopy 06/[address] Park at [facility]. Sedation:Midazolam 5 mg IV, Fentanyl 100 micrograms [...] (FLONASE) 50 mcg/actuation nasal spray Use 1 Wallagrass in the nose once daily. cyanocobalamin (VITAMIN [...] entered by the nurse and reviewed by hi Nursing Notes: Francisca Spann RN 02/16/2024 2:03 [...] denies ulcers, denies vomiting, (more content not included)...[facility]11-01-2024 Nurse Note* Francisca Spann RN - [...] 07/10/2020 Francisca Spann RN documented in this encounterSam[facility]05-02-2024 Discharge summary Author Joe Joshua [facility] August 18, 2023 12:45am Note Date/Time August 17, 2023 9:52pm [facility] Medical Records Department [address] [place] [address] Emergency Department Summary 08/17/23 MR#: [id number] Acct: [id number] Name: MARIA E GUTHRIE Rep #:[id number] : 1950 73 From: Joe Sage PCP: Dr. Matt Saul MD Status :REG ER Location: ED HPI History of Present Illness Chief Complaint: Chest Pain Informant: patient Narrative Narrative: Intermittent chest pain initially started overnight twinges in his left chest. This evening it returned having intermittent symptoms. He had 1 stent placed [id number]. Diabetes hypertension hyperlipidemia. No cardiac dysrhythmia history. On baby aspirin. No cough. He had traveled yesterday 8-hour drive and return. Noticed leg swelling no leg cramping no dyspnea. Prior Similar Symptoms: No CVD Risk Factors: Positive for Hypertension, Diabetes and Hypercholesterolemia PE Risk Factors: Positive for Recent [facility] Medical History (Updated 08/18/23 @ 00:[address] Joe Joshua DO) Atherosclerosis of coronary artery of three affiliated heart without angina pectoris Chest pain Coronary [...] DAILY 02/08/22 [History Last Taken Unknown] omega 0-ikb-vxd-fish oil 300 mg-1,000 mg capsule (Fish Oil) 2 cap PO BID 02/08/22 [History Last Taken Unknown] allopurinol 300 mg tablet 300 mg PO DAILY 02/08/23 [History Last Taken Unknown] hydrochlorothiazide 25 mg tablet 25 mg PO DAILY 02/08/23 [History Last Taken Unknown] Allergy/AdvReac Type Severity Reaction Status Date / Time Crbjlfs-ROA-YmR Reductase AdvReac Mild myalgias Verified 08/17/23 21:04 Inhibitor [Tfejfqe-Aly-Bsf Reductase Inhibitor] Family History Brother CAD (coronary [...] clinician: N/A This note was generated with JRapid dictation software. It may contain incorrectwords, spelling, [...] 38.9 L Lymph % (Auto) 49.8 H Collier % (Auto) 10.1 H Eos % (Auto) [...] mg tablet 100 mg PO DAILY omega 9-gkx-jpp-fish oil [Fish Oil] 300-1,000 mg capsule 2 [...] muscle); rotate sites Pt gets from the [place] Primary Care Provider: Matt Saul Referrals: Matt [...] your Primary Care Provider. Call [facility] ([phone]) or report to the closest Emergency Room. Call 911 if necessary. 08/18/23 0045 <Electronically signed by Joe Sage> Cosigner Signature (if applicable): CC: Dr. Matt Saul MD ~ Signed [facility] Work Phone: [phone]) [phone] Evaluation note* Diagnosis Onset Date Resolution Status Essential hypertension chron ic History of coronary artery stent placement August 17 chronic Hyperlipidemia chronic [facility] Work Phone: Evaluation note* Diagnosis Onset Date Resolution Status Influenza due to influenza virus, type A, human acute [facility] Work Phone: Evaluation note* Diagnosis History of colonic polyps- Primary Personal history of colonic polyps Screen for colon cancer Special screening for malignant neoplasms, colon documented [facility] encounter [facility]* Diagnosis History of colonic polyps Personal history of colonic polyps Screen for colon cancer Special screening for malignant neoplasms, colon documented in this encounter [facility]* Diagnosis History of colonic polyps- Primary Personal history of colonic polyps documented in this encounter [facility] noteNo assessment information availableWooBucyrus Community Hospital Work Phone: Hospital Discharge instructions Additional Instructions Cardiac workup was negative. Potassium 3.1 orally replaced. Follow-up with your doctor. If symptoms recur and worsens, return to the ED for reevaluation.[facility] Work Phone: Hospital Discharge instructionsAdditional Instructions [facility]: [facility] Work Phone: Reason for referral (narrative)* Outpatient Procedure (Routine) - Authorized Specialty Diagnoses / Procedures Referred By Shauna ross Referred To Contact [facility] [place] Diagnoses History of colonic polyps Screen for colon cancer Procedures COLONOSCOPY SCREENING COLONOSCOPY FLX DX W/COLLJ SPEC WHEN Maddie Lozada APRN.CNP [address] [place] [address] [facility] Disease [address] [address] Referral ID Status Reason Start Date Expiration Date Visits Requested Visits Authorized [id number] Authorized Auto-Generat ed Referral 02/16/2024 02/15/2025 1 1 [facility] for referral (narrative)* Outpatient Procedure (Routine) - Closed Specialty Diagnoses / Procedures Referred By Shauna ross Referred To Contact [facility] [place] Diagnoses History of colonic polyps Screen for colon cancer Procedures COLONOSCOPY SCREENING COLONOSCOPY FLX DX W/COLLJ SPEC WHEN Maddie Lozada APRN.CNP [address] [place] [address] [facility] Disease [place] [id number] Referral ID Status Reason Start Date Expiration Date V isits Requested Visits Authorized [id number] Closed Auto-Generate d Referral 02/16/2024 02/15/2025 1 1 [facility] for referral (narrative)No reason for referral information availableWHolmes County [facility] Work Phone: Reason for visit Narrative* Outpatient Procedure (Routine) - Closed Specialty Diagnoses / Procedures Referred By Shauna ross Referred To Contact [facility] Diagnoses History of colonic polyps Screen for colon cancer Procedures COLONOSCOPY SCREENING COLONOSCOPY FLX DX W/COLLJ SPEC WHEN Maddie Lozada, JENNIFER.UNDERWATER HUNTER [address] [place] [address] [facility] [place] [address] Referral ID Status Reason Start Date Expiration Date V isits Requested Visits Authorized [id number] Closed Auto-Generate d Referral 02/16/2024 02/15/2025 1 1 [facility] Chief Complaint and Reason for Visit [...] Yes December 29, 2014 1:26pm Power of Supervisor Poultry Hatchery Yes December 1:26pm Advance Directive Response Recorded Date/ Time Name of Medical Power of Supervisor Poultry Hatchery darby feliciano n August 17, 2023 9:53pm Living Will Yes August 17, 2023 9: 53pm Power of Supervisor Poultry Hatchery Yes August 17, 2023 9:53pm Advance Directive Response Recorded Date/ Time Living Will Yes December 29, 2014 2:26pm Power of Supervisor Poultry Hatchery Yes December 2:26pm Advance Directive Response Recorded Date/ Time Do you have a Healthcare Power of Supervisor Poultry Hatchery? Yes December 23, 2024 2:44pm Summary Purpose [...] Primary Care Provider Activ e Bill Murdock MEAT CURER, MEAT CURER-C Attending Provider Active Team Status: Active Member Role Status Dates Dr. Armond Saul MD Primary Care Provider Activ e Self Referred Attending Provider Active Team Status: Inactive Member Role Status Dates Dr. Armond Saul MD Primary Care Provider Activ e Bill Murdock MEAT CURER, MEAT CURER-C Attending Provider Active Team Status: Inactive Member Role Status Dates Dr. Armond Saul MD Primary Care Provider, Refe rring Provider Active Xiomara Rneee MEAT CURER, MEAT CURER-C Attending Provider Active Team Status: Active Member [...] Dr. Joe Joshua DO Emergency Provider Active Cat Operator Relationship Specialty Start Date End Date Matt Saul MD [address] [place], [place] [id number] PCP - General Family Medicine 06/30/20 Cat Operator Relationship Specialty Start Date End Date Matt Saul MD [address] [place], [place] [address] PCP - General Family Medicine 06/30/20 Cat Operator Relationship Specialty Start Date End Date Matt Saul MD [address] [place], [place] [address] PCP - General Family Medicine 06/30/20 Cat Operator Relationship Specialty Start Date End Date Matt Saul MD [address] [place], [place] [id number] PCP - General Family Medicine 06/30/20 Team [...] or prosecute any alcohol or drug abuse patient.[facility] CenterIn the event this information is protected by the Federal Confidentiality of Alcohol and Drug Abuse Patient Records regulations: The Federal rules restrict any use of the information to criminally investigate or prosecute any alcohol or drug abuse patient.[facility] CenterIn the event this information is protected by the Federal Confidentiality of Alcohol and Drug Abuse Patient Records regulations: The Federal rules restrict any use of the information to criminally investigate or prosecute any alcohol or drug abuse patient.[facility] CenterIn the event this information is protected by the Federal Confidentiality of Alcohol and Drug Abuse Patient Records regulations: The Federal rules restrict any use of the information to criminally investigate or prosecute any alcohol or drug abuse patient.[facility] Reason for Visit (unrecogniz ed section and content) Reason Comments Consult colonoscopy Reason Comments Follow Up Review colonoscopy r esults. Reason Comments 02-19-2024 Colonscoopy (unrecognized sect ion and content) No Status Records FoundNo Status Records Found INFORMATION SOURCE (unrecogn ized section and content) DATE CREATED AUTHOR 03/19/2024 [facility] DATE CREATED AUTHOR AUTHOR'S ORGANIZ ATION 02/28/2025 [facility] FOR RECORDS PERTAINING TO PATIENTS WHO [...] BE BASED ON THE PRIMARY CLINICAL RECORDS. [employer] provides no warranty or guarantee of the accuracy or completeness of information in this document.
[2025-04-13 12:43] VITALS: BP 136/70; PULSE 69; RESP 18; TEMP 36.4; O2SAT 99
[2025-04-13] MEDS: Ceftriaxone 2 GM in 0.9% Normal Saline (50mL MB+) 50 ML IV (13:16)
[2025-04-13 14:05] VITALS: BP 136/74; PULSE 70; RESP 18; TEMP 36.4; O2SAT 98
== END 2025-04-13 14:03 | disposition home or self-care (01) ==
LOC: MEDOUTP 12:35 → PCU 12:36
PROVIDERS: PCP Family Medicine; Referring Provider Internal Medicine Infectious Disease; Visit Provider Internal Medicine Infectious Disease
DX: T84.59XA Infection and inflammatory reaction due to other internal joint prosthesis, initial encounter (principal)
CPT/HCPCS: 96365; J0696

== ENCOUNTER 2025-04-14 12:14 | Outpatient (CLI) | payer MEDICARE, OTHER, SELFPAY ==
[2025-04-14] MEDS: Ceftriaxone 2 GM in 0.9% Normal Saline (50mL MB+) 50 ML IV (12:31)
[2025-04-14 12:32] VITALS: BP 122/72; PULSE 71; RESP 16; TEMP 35.6; O2SAT 71
[2025-04-14 13:25] VITALS: BP 114/74; PULSE 99; RESP 14; TEMP 35.5; O2SAT 97
== END 2025-04-14 23:59 | disposition home or self-care (01) ==
LOC: MEDOUTP 12:15
PROVIDERS: PCP Family Medicine; Referring Provider Internal Medicine Infectious Disease; Visit Provider Internal Medicine Infectious Disease
DX: T84.59XA Infection and inflammatory reaction due to other internal joint prosthesis, initial encounter (principal)
CPT/HCPCS: 96365; A4216; J0696

== ENCOUNTER 2025-04-15 12:50 | Outpatient (CLI) | payer MEDICARE, OTHER, SELFPAY ==
[2025-04-15] MEDS: Ceftriaxone 2 GM in 0.9% Normal Saline (50mL MB+) 50 ML IV (13:32)
[2025-04-15 13:33] LABS: Hematocrit 38.2 % (40-54); Hemoglobin 12.1 g/dL (13.0-16.5); Mean Corp Hgb Conc 31.7 g/dL (32-36); Mean Corpuscular Volume 85.1 fL (80-94); Mean Platelet Vol. 10.4 fl (6.2-12.0); Platelet Count 285 K/mm3 (150-450); RBC Distribution Width CV 14.7 % (11.6-14.6); RBC Distribution Width SD 44.9 fl (35.1-43.9); Red Blood Count 4.49 M/mm3 (4.6-6.2); White Blood Count 4.0 K/mm3 (4.4-11.0)
[2025-04-15 13:35] VITALS: BP 133/74; PULSE 62; RESP 16; TEMP 35.6; O2SAT 97; BMI 26.4
[2025-04-15 14:02] LABS: AST(SGOT) 22 U/L (<=37); Alanine Aminotransfer ALT/SGPT 16 U/L (<=46); Albumin, Serum 4.3 g/dL (3.4-4.8); Alkaline Phosphatase 77 U/L (40-129); Anion Gap 13 (7-18); BUN 25 mg/dL (4-19); BUN/Creat Ratio 23.8 RATIO (10-20); Bilirubin, Direct 0.14 mg/dL (0.00-0.30); Calcium,Total 9.9 mg/dL (7.6-11.0); Carbon Dioxide 22.8 mmol/L (20.0-29.0); Chloride 101 mmol/L (96-106); Estimated Creatinine Clearance 64.36 ml/min (50-250); Globulin 2.9 g/dL (2.2-4.2); Glucose 125 mg/dL (70-99); Potassium 4.4 mmol/L (3.5-5.1)
[2025-04-15 14:35] VITALS: BP 140/83; PULSE 66; RESP 16; TEMP 35.8; O2SAT 96
== END 2025-04-15 23:59 | disposition home or self-care (01) ==
LOC: MEDOUTP 12:50
PROVIDERS: PCP Family Medicine; Referring Provider Internal Medicine Infectious Disease; Visit Provider Internal Medicine Infectious Disease
DX: M97.31XD Periprosthetic fracture around internal prosthetic right shoulder joint, subsequent encounter (principal)
CPT/HCPCS: 96365; 36592; 80048; 80076; 85027; 85652; A4216; J0696

== ENCOUNTER 2025-04-16 12:18 | Outpatient (CLI) | payer MEDICARE, OTHER, SELFPAY ==
--- OUTSIDE RECORDS SUMMARY | 2025-04-16 12:34 | XMS RPT_ITS | CCD ---
Author Organization [facility] Care Team Providers Care Activity Specialist Name Role Phone FERMIN Blunt, Bailey Keller Unavailable Georgette Oliva Unavailable Unavailable Georgette Tabor Unavailable Unavailable Dr. Armond Saul Primary Care Provider [phone] Dr. Armond Saul Referring Provider Dr. Nathan Purcell Attending Provider [phone] Doyle Sandoval Attending Provider [phone] Collette COUNSELLORS, COUNSELLORS-Luna Grant Attending Provider Dr. Armond Saul Primary Care Provider [phone] Dr. Armond Saul Referring Provider Víctor COUNSELLORS, COUNSELLORS-Luna Solano Attending Provider Dr. Nathan Purcell Attending Provider [phone] Nathan Purcell Referring Provider [phone] Nathan Purcell Other Provider Collette COUNSELLORS, KHAI-Luna Grant Attending Provider Dr. Matt Saul [...] Kg LAZO, Dr. Farley Attending Provider [phone] Kg LAZO, Dr. Farley Primary Care Provider [...] Spring Attending Physician Oneyda Spring Referring Provider [phone] Yang Romero Attending Unavailable [place], Matt Referring Unavailable [facility] Primary Care Unavailable Spittle, Major Attending Unavailable Spittle, Major Referring Unavailable Spittle, Major Admitting Unavailable [facility] Primary Care Unavailable Kotsonis, Mjaor F Consulting Unavailable Spittle, Major Referring Unavailable Spittle, Major Attending [facility]available [facility] Unavailable Spittle, Major Referring Unavailable Spittle, Major Attending Unavailable [facility] Care Unavailable Oneyda Solano Attending Unavailable Oneyda Solano Referring Unavailable [facility] Unavailable [facility] Primary Care Unavailable Matt Saul Attending [facility]available [facility] Referring Unavailable [facility], Matt Attending Unavailable [facility] Primary Care Unavailable Spittle, Major Referring Unavailable Seven Grey Attending Unavailable [facility] Primary Care Unavailable Spittle, Major Referring Unavailable Hansel Sultana Attending Unavailable Spittle, Major Admitting Unavailable Hansel Sultana Consulting Unavailable [facility] Care Unavailable Spittle, Major Consulting Unavailable Kotsonis, Major F Consulting Unavailable Kotsonis, Major F Attending Unavailable Nathan Purcell Attending Unavailable [facility] Care Unavailable [facility] Referring Unavailable Allergies Allergy Classification Reported Allergen(s) Allergy Type Date of Onset Reaction(s) Facility (3 sources) atorvastatin drug allergy 5 myalgia [facility] Work Phone: (3 sources) simvastatin drug allergy 3 myalgias [facility] Work Phone: (3 sources) CRESTOR, PRAVACHOL drug allergy 3 myalgias [facility] Work Phone: (7 sources) Eexthxh-Ocj-Cga Reductase Inhibitor Propensity to adverse reactions 2 myalgias [facility] Comment on above: Lipitor, Crestor, Zo cor (5 sources) Simvastatin; Translations: [SIMVASTATIN] Drug Allergy 7 Intolerance [facility] Work Phone: (1 source) OTHER; Translations: [OTHER] Propensity to adverse reactions (disorder) 7 [facility] Repository (1 source) Qqbzaaz-Tin-Dyf Reductase Inhibitor Drug allergy (disorder) 5 [facility] Repository Medications Current Medications Medication Drug Class(es) [...] TABS One tablet by mouth daily ASPIRIN [id number] Shruthi Fajardo RN Start: 06-11-2012 take 1 tablet by keyona th once daily at mealtime Aspirin 81 mg Tab Indications: Coronary atherosclerosis of unspecified type of vessel, [place] or graft Take 1 tablet by mouth once daily. Take with food. 06/11/2012 Active cholecalciferol 0.025 mg ora l tablet (14 sources) Vitamin D Start: 01-21-2020 take 1 tablet by keyona th once daily Start: 01-21-2020 take 2000 [IU] by mo [facility] once daily Cholecalciferol (Vitamin D3) Active [...] Active docusate sodium 50 mg / sennosides, senior living 8.6 mg oral tablet (2 sources) Start: 12-24-2024 fluticasone propionate 0.05 mg/actuat metered dose nasal spray (4 sources) Corticosteroid Start: 05-04-2023 fluticasone (FLONASE) 50 mcg/actuation nasal spray Use 1 [place] in the nose once daily. 05/04/2023 Active [...] tablet by mouth twice daily METOPROLOL TARTRATE [id number] Mari Reyes RN oxyCODONE hydrochloride 5 mg oral tablet (2 sources) Opioid Agonist Start: 12-24-2024 take 5-10 mg by mouth every four to six hours as needed for pain polyethylene glycol [id number] [id number] mg / potassium chloride 2970 mg / sodium bicarbonate 6740 mg / sodium chloride 5860 mg / sodium sulfate 27297 mg powder for oral solution (1 source) [...] One tablet by mouth daily CLOPIDOGREL BISULFATE [id number] Demetri Patrick MD Maxwell 1-Eyl-Rjg-Fish Oil (7 sources) Start: 02-08-2022 End: 04-04-2024 Maxwell 8-Fgo-Obq-Fish Oil (Fish Oil) 300-1,000 mg capsule Discontinued 2 NMA PO TWICE A DAY February 08, 2022 12:00am April 04, 2024 3:20pm Start: 02-08-2022 take 300-1000 mg by mouth twice daily Maxwell 4-Vvb-Mlw-Fish Oil (Fish Oil) 300-1,000 mg capsule Active 2 CAP PO TWICE A DAY February 08, 2022 12:00am Start: 02-08-2022 take 300-1000 mg by mouth once daily Maxwell 3-Inn-Hhe-Fish Oil (Fish Oil) 300-1,000 mg capsule Active [...] by mouth daily OMEGA-3 FATTY ACIDS CAPS [id number] Demetri Patrick MD Start: 06-10-2013 End: 03-31-2015 take 1 tablet by mouth once daily FISH OIL CAPS One tablet by mouth daily OMEGA-3 FATTY ACIDS CAPS [id number] Demetri Patrick MD Start: 03-21-2013 End: 03-25-2013 take 1 capsule by mouth once daily FISH OIL CAPS One capsule by mouth daily OMEGA-3 FATTY ACIDS CAPS [id number] Demetri Patrick MD Start: 03-21-2013 take 1 capsule by mo [facility] once daily FISH OIL CAPS One capsule by mouth daily OMEGA-3 FATTY ACIDS CAPS [id number] Shruthi Fajardo RN FLUoxetine 10 mg oral capsule (6 sources) Serotonin Reuptake Inhibitor Start: 03-21-2013 End: 03-25-2013 take 1 tablet by mouth once daily PROZAC 10 MG CAPS One tablet by mouth daily FLUOXETINE HCL [id number] Demetri Patrick MD Start: 03-21-2013 End: 03-25-2013 take 1 tablet by mouth once daily PROZAC 10 MG CAPS One tablet by mouth daily FLUOXETINE HCL [id number] Demetri Patrick MD gemfibrozil 600 mg oral [...] BY PHYSICIAN FOR PROCEDURAL SEDATION ONLY, Intraprocedure Maxwell-3 Fatty Acids (3 sources) Start: 06-09-2013 End: 05-11-2017 take 300 mg by mouth once daily Maxwell-3 Fatty Acids Discontinued 300 MG PO DAILY June 09, 2013 1:00am May 11, 2017 5:09pm Start: 06-09-2013 End: 05-11-2017 take 300 mg by mouth once daily Maxwell-3 Fatty Acids Discontinued 300 MG PO DAILY June 09, 2013 12:00am May 11, 2017 4:09pm Maxwell-3 Fatty Acids 300 MG capsule (4 sources) Start: 06-09-2013 End: 05-11-2017 take 1 capsule by mouth once daily Maxwell-3 Fatty Acids 300 MG capsule Discontinued 300 [...] myocardial infarction; Translations: [Atherosclerotic heart disease of [place] coronary artery without angina pectoris] Onset: 12-24-2008 [...] use of other medications; Translations: [Other extermination inspector (current) drug therapy] Onset: 03-31-2014 03-31-2014 Episodic [...] PTon 01-07-2025 Inital Evaluation (1) - PT [facility] Physical Therapy [facility] [address] [place] [address] / REHABILITATION SERVICES INITIAL EVALUATION MR#: [id number] Acct: [id number] Name: MARIA E GUTHRIE Rep #: [id number] : 1950 74 From: Cesar Holloawy DPT Referring Dr.: EDILSON Diaz Status: REG [...] to be FAXED BACK to us at [phone] for Medicare purposes. For Medicare only, by signing this I certify the plan of care. Please let me know if there are questions or concerns regarding this plan of care. Physician Signature: Date:__ 01/07/25 1206 CC: Dr. Matt Saul MD; EDILSON Diaz CLS Signed Normal [facility] Microalb:Creat Ratio,Random URon 01-06-2025 Creatinine [Mass/Vol] 68.50 mg/dL Normal 39.00-259.00 [facility] Comment on above: Order Comment: Order Date: 01/06/25 Order Info: [id number] - MIALB Performed By: #### L 502.0250 #### [facility] Laboratory [address] [place], [place], [id number] MALB:CREAT 322.6 mg/g CRE High <30 mg/g CRE [facility] Comment on above: Order Comment: Order Date: 01/06/25 Order Info: [id number] - MIALB Performed By: #### L 502.0250 #### [facility] Laboratory [address] [place], [address] MICROALBUMIN,UR 221.0 mg/L Normal <20 mg/L [facility] Comment on above: Order Comment: Order Date: 01/06/25 Order Info: [id number] - MIALB Performed By: #### L 502.0250 #### [facility] Laboratory [address] [place], [address] Random urine creatinine collin urement (mass/volume)Ordered By: Matt Saul on 01-06-2025 Creatinine Unsp time (U) [Mass/Vol] 68.50 mg/dL 39.00-259.00 [facility] Urine albumin measurement wi detection limit of 20 mg/L or less (mass/volume)Ordered By: Matt Saul on 01-06-2025 Albumin DL <= 20 mg/L (U) [Mass/Vol] 221.0 mg/L <20 mg/L [facility] Anion gap in Serum or Plasma Ordered By: Major Yi on 12-24-2024 Anion gap [Moles/Vol] 15 mmol/L - [facility] BUN/creatinine ratioOrdered By: Major Yi on 12-24-2024 Urea nitrogen/Creatinine [Mass ratio] 19.8 mg/mg - [facility] Basic Metabolic Profile (BMP )on 12-24-2024 BUN/CRE 19.8 RATIO Normal 02-03 [facility] Comment on above: Performed By: #### L 500.2500, L100.0500 ####[facility] [address] [place], [address] Calcium [Mass/Vol] 9.2 mg/dL Normal 7.6-11.0 [facility] Comment on above: Performed By: #### L 500.2500, L100.0500 ####[facility] [address] [place], [address] Chloride [Moles/Vol] 100 mmol/L Normal 98-108 [facility] Comment on above: Performed By: #### L 500.2500, L100.0500 ####[facility] [address] [place], [address] CO2 [Moles/Vol] 19.6 mmol/L Low 21.0-32.0 [facility] Comment on above: Performed By: #### L 500.2500, L100.0500 ####[facility] [address] [place], [address] Creatinine [Mass/Vol] 1.01 mg/dL Normal 0.70-1.20 [facility] Comment on above: Performed By: #### L 500.2500, L100.0500 ####[facility] [address] [place], [address] ECRCL 68.29 ml/min Normal 50-250 [facility] Comment on above: Performed By: #### L 500.2500, L100.0500 ####[facility] [address] [place], [address] GAP 15 Normal 5-15 [facility] Comment on above: Performed By: #### L 500.2500, L100.0500 ####[facility] [address] [place], [address] GFR/1.73 sq M.predicted among non-blacks MDRD (S/P/Bld) [Vol rate/Area] 77 mL/min/{1.73_m2} Normal >60 [facility] Comment on above: Result Comment: mL/m in/1.73m2 CKD-EPI Creatinine Equation (2020) Performed By: #### L 500.2500, L100.0500 ####[facility] [address] [place], [address] Glucose [Mass/Vol] 175 mg/dL High 70-99 [facility] Comment on above: Performed By: #### L 500.2500, L100.0500 ####[facility] [address] [place], [address] Potassium [Moles/Vol] 4.4 mmol/L Normal 3.3-5.1 [facility] Comment on above: Performed By: #### L 500.2500, L100.0500 ####[facility] [address] [place], [address] Sodium [Moles/Vol] 135 mmol/L Normal 133-145 [facility] Comment on above: Performed By: #### L 500.2500, L100.0500 ####[facility] [address] [place], [address] Urea nitrogen [Mass/Vol] 20 mg/dL High 4-19 [facility] Comment on above: Performed By: #### L 500.2500, L100.0500 ####[facility] [address] [place], [address] Bedside Glucoseon 12-24-2024 FINGERSTICK GLU 306 mg/dL High 74-106 [facility] Comment on above: Result Comment: SUSAN GEMENT OF PATIENT CARE PER NURSING PROTOCOL Performed By: #### L 501.080 #### [facility] Laboratory [address] [place], [address] FINGERSTICK GLU 188 mg/dL High 74-106 [facility] Comment on above: Result Comment: SUSAN GEMENT OF PATIENT CARE PER NURSING PROTOCOL Performed By: #### L 501.080 #### [facility] Laboratory [address] [place], [address] CBC-Complete Blood Cnt No Di ffon 12-24-2024 Erythrocyte distribution width (RBC) [Ratio] 13.4 % Normal 11.6-14.6 [facility] Comment on above: Performed By: #### L 500.2500, L100.0500 #### [facility] Laboratory [address] [place], [address] Hematocrit (Bld) [Volume fraction] 39.7 % Low 40-54 [facility] Comment on above: Performed By: #### L 500.2500, L100.0500 #### [facility] Laboratory [address] [place], [address] Hemoglobin (Bld) [Mass/Vol] 13.5 g/dL Normal 13.0-16.5 [facility] Comment on above: Performed By: #### L 500.2500, L100.0500 #### [facility] Laboratory [address] [place], [address] MCH (RBC) [Entitic mass] 29.6 pg Normal 27.0-32.0 [facility] Comment on above: Performed By: #### L 500.2500, L100.0500 #### [facility] Laboratory [address] [place], [address] MCHC (RBC) [Mass/Vol] 34.0 g/dL Normal 32-36 [facility] Comment on above: Performed By: #### L 500.2500, L100.0500 #### [facility] Laboratory [address] [place], [address] MCV (RBC) [Entitic vol] 87.1 fL Normal 80-94 [facility] Comment on above: Performed By: #### L 500.2500, L100.0500 #### [facility] Laboratory [address] [place], [address] Platelet mean volume (Bld) [Entitic vol] 11.7 fL Normal 6.2-12.0 [facility] Comment on above: Performed By: #### L 500.2500, L100.0500 #### [facility] Laboratory [address] [place], [address] Platelets (Bld) [#/Vol] 174 10*3/uL Normal 150-450 [facility] Comment on above: Performed By: #### L 500.2500, L100.0500 #### [facility] Laboratory [address] [place], [address] RBC (Bld) [#/Vol] 4.56 10*6/uL Low 4.6-6.2 [facility] Comment on above: Performed By: #### L 500.2500, L100.0500 #### [facility] Laboratory [address] [place], [address] RDW SD 41.7 fl Normal 35.1-43.9 [facility] Comment on above: Performed By: #### L 500.2500, L100.0500 #### [facility] Laboratory [address] [place], [address] WBC (Bld) [#/Vol] 10.6 10*3/uL Normal 4.4-11.0 [facility] Comment on above: Performed By: #### L 500.2500, L100.0500 #### [facility] Laboratory [address] [place], [address] Carbon dioxide, total [Moles /volume] in Central venous bloodOrdered By: Major Yi on 12-24-2024 CO2 [Moles/Vol] 19.6 mmol/L Low 21.0-32.0 [facility] Chloride assayOrdered By: Yumiko Yi on 12-24-2024 Chloride [Moles/Vol] 100 mmol/L 98-108 [facility] Erythrocyte distribution wid th ratioOrdered By: Major Yi on 12-24-2024 Erythrocyte distribution width (RBC) [Ratio] 13.4 % 11.6-14.6 [facility] Erythrocyte distribution wid th standard deviationOrdered By: Major Yi on 12-24-2024 Erythrocyte distribution width (RBC) [Ratio] 41.7 fl 35.1-43.9 [facility] Glomerular filtration rate ( GFR) estimation/1.73 sq m using serum, plasma, or whole bOrdered By: Major Yi on 12-24-2024 GFR/1.73 sq M.predicted among non-blacks MDRD (S/P/Bld) [Vol rate/Area] 77 mL/min/{1.73_m2} >60 [facility] Comment on above: mL/min/1.73m2 CKD-EP I Creatinine Equation (2020) [facility] deOrdered By: Major Yi on 12-24-2024 Glucose [Mass/Vol] 306 mg/dL High 74-106 [facility] Comment on above: MANAGEMENT OF PATIEN T CARE PER NURSING PROTOCOL Hematocrit Auto (Bld) [Volum e fraction]Ordered By: Major Yi on 12-24-2024 Hematocrit (Bld) [Volume fraction] 39.7 % Low 40-54 [facility] Hemoglobin measurementOrdere d By: Major Yi on 12-24-2024 Hemoglobin (Bld) [Mass/Vol] 13.5 g/dL 13.0-16.5 [facility] MCV (mean corpuscular volume ) determinationOrdered By: Major Yi on 12-24-2024 MCV (RBC) [Entitic vol] 87.1 fL 80-94 [facility] Mean corpuscular hemoglobin (MCH) determinationOrdered By: Major Yi on 12-24-2024 MCH (RBC) [Entitic mass] 29.6 pg 27.0-32.0 [facility] Mean corpuscular hemoglobin concentration (MCHC) determinationOrdered By: Major Yi on 12-24-2024 MCHC (RBC) [Mass/Vol] 34.0 g/dL 32-36 [facility] Mean platelet volume determi nationOrdered By: Major Yi on 12-24-2024 Platelet mean volume (Bld) [Entitic vol] 11.7 fL 6.2-12.0 [facility] Platelet countOrdered By: Yumiko Yi on 12-24-2024 Platelets (Bld) [#/Vol] 174 10*3/uL 150-450 [facility] Potassium measurement (mass/ volume)Ordered By: Major Yi on 12-24-2024 Potassium (Unsp spec) [Mass/Vol] 4.4 mmol/L 3.3-5.1 [facility] RBC Auto (Bld) [#/Vol]Ordere d By: Major Yi on 12-24-2024 RBC (Bld) [#/Vol] 4.56 10*6/uL Low 4.6-6.2 [facility] Serum creatinine measurement (mass/volume)Ordered By: Major Yi on 12-24-2024 Creatinine [Mass/Vol] 1.01 mg/dL 0.70-1.20 [facility] Serum glucose measurement (m ass/volume)Ordered By: Major Yi on 12-24-2024 Glucose [Mass/Vol] 175 mg/dL High 70-99 [facility] Serum or plasma calcium collin urement (mass/volume)Ordered By: Major Yi on 12-24-2024 Calcium [Mass/Vol] 9.2 mg/dL 7.6-11.0 [facility] Serum or plasma urea nitroge n measurement (mass/volume)Ordered By: Major Yi on 12-24-2024 Urea nitrogen [Mass/Vol] 20 mg/dL High 4-19 [facility] Sodium levelOrdered By: Moshe Yi on 12-24-2024 Sodium [Moles/Vol] 135 mmol/L 133-145 [facility] White blood cell (WBC) count Ordered By: Major Yi on 12-24-2024 WBC (Bld) [#/Vol] 10.6 10*3/uL 4.4-11.0 [facility] Bedside Glucoseon 12-23-2024 FINGERSTICK GLU 272 mg/dL High 74-106 [facility] Comment on above: Result Comment: SUSAN GEMENT OF PATIENT CARE PER NURSING PROTOCOL Performed By: #### L 501.080 ####[facility] [address] [place], [address] FINGERSTICK GLU 166 mg/dL High 74-106 [facility] Comment on above: Result Comment: SUSAN GEMENT OF PATIENT CARE PER NURSING PROTOCOL Performed By: #### L 501.080 ####[facility] [address] [place], [address] FINGERSTICK GLU 195 mg/dL High [facility]106 [facility] Comment on above: Result Comment: SUSAN GEMENT OF PATIENT CARE PER NURSING PROTOCOL Performed By: #### L 501.080 #### [facility] Laboratory [address] [place], [address] Consultation - [facility]iston 12-23-2024 Consultation - Hospitalist [facility] Medical Records Department [address] [place] [address] Consultation - Hospitalist 12/23/24 1608 MR#: [id number] Acct: [id number] Name: MARIA E GUTHRIE Rep #: [id number] : 1950 74 From: Hansel Sultana DO PCP: Dr. Matt Saul MD Status:ADM BAR Location: [place] [address] Assessment Plan Assessment/Plan (1) Right rotator cuff tear arthropathy: PLAN: Plan Patient is a 74-year-old male who presented to [facility] on 12/23/2024 for planned right shoulder procedure. [...] is a 74 M who presented to [facility] on 12/23/2024 for planned orthopedic procedure. Medicine [...] acute concerns at this time. [facility] Medical History Wears hearing aid Wears glasses Wears partial dentures History of steroid therapy Arthritis Dietary restriction Non-smoker History of echocardiogram History of stress test Cardiology follow-up encounter Diabetes Myocardial infarct Hypertension Osteoarthritis Gout Atherosclerosis of coronary artery of [place] heart without angina pectoris Hyperlipidemia Home Medications [...] Type Severity Reaction Status Date / Time Wzngshp-RKR-IeL Reductase AdvReac Mild myalgias Verified 12/23/24 10:26 Inhibitor (Mjwkdmc-Jpc-Qtc Reductase Inhibitor) Family History Brother CAD (coronary [...] content not included)... [facility] MR/POSTOP.ANEon 12-23-2024 MR/POSTOP.[facility] Medical Records Department [address] [place] [address] Anesthesia Postop Eval I 12/23/24 1332 MR#: [id number] Acct: [id number] Name: MARIA E GUTHRIE Rep #: [id number] : 1950 74 From: Priscilla Willard CRNA PCP: Dr. Matt Saul MD Status:REG [facility] Y Race: C Location: [place] [address] Anesthesia: Postop Eval I Current Vital Signs Temperature: 97 F Pulse Rate: 89 Blood Pressure: 145/87 Respiratory Rate: 18 Pulse Ox: 93 Assessment Airway patent: Yes Spontaneous unlabored respirations: Yes nausea: No Vomiting: No Anesthesia Complication: No Fluid Hydration Crystalloid volume administer (ml): 1,300 Total IV fluid infused: 1,300 Progress Note Anesthesia document: Postop Eval 1 completed: Yes 12/23/241332 Date Priscilla Willard PURCHASER Cosigner Signature: Date CC: Signed [facility] MR/[id number] 12-23-2024 MR/POSTOPAN2 [facility] Medical Records Department [address] [facility] [place] [address] Anesthesia Postop Eval II 12/23/24 1433 MR#: [id number] Acct: [id number] Name: MARIA E GUTHRIE Rep #: [id number] : 1950 74 From: Osei Lubin MD PCP: Dr. Matt Saul MD Status:ADM BAR Y Race: C [facility] Anesthesia Postop Eval I Sum Postop Eval Completion status Anesthesia document: Postop Eval 1 completed: Yes Anesthesia Postop Eval I Summary Anesthesia Postop Eval I Summary: Anesthesia Postop Eval I: Assessment Summary Airway patent Yes 12/23/24 13:32 PURCHASER.CSIR Spontaneous unlabored Yes 12/23/24 13:32 PURCHASER.CSIR respirations Mental status nausea No 12/23/24 13:32 PURCHASER.CSIR Vomiting No 12/23/24 13:32 PURCHASER.CSIR Anesthesia Postop Eval I: Fluid Summary Crystalloid volume administer 1,300 12/23/24 13:32 PURCHASER.CSIR (ml) Colloids volume administered ( ml) Blood Product volume administered (ml) Total IV fluid infused 1,300 12/23/24 13:32 PURCHASER.CSIR Anesthesia Postop Eval I: Summary Notes Anesthesia Complication No 12/23/24 13:32 PURCHASER.CSIR Anesthesia Complication Comment: Post-operative progress note Anesthesia: Postop Eval II Evaluation Mental status: Awake and Calm Pain Level: 1 nausea: No Vomiting: No Complications Anesthesia Complication: No 12/23/24 1433 Date Osei Lubin MD Cosigner Signature: Date CC: Signed Normal [facility] Magnesiumon 12-23-2024 Magnesium [Mass/Vol] 1.8 mg/dL Normal 1.5-2.2 [facility] Comment on above: Performed By: #### L [phone] #### [facility] Laboratory [facility] [place], [address] Magnesium measurement (mass/ volume)Ordered By: Faheem Barroso on 12-23-2024 Magnesium (Unsp spec) [Mass/Vol] 1.8 mg/dL 1.5-2.2 [facility] Operative Reporton Operative Report [facility] Medical Records Department [address] [place] [address] Operative Report 12/23/24 1322 MR#: [id number] Acct: [id number] Name: MARIA E GUTHRIE Rep #: [id number] : 1950 74 From: Major Yi DO PCP: Dr. Matt Saul MD Status:[facility] Location: [place] [address] Operative Report (Standard) Operative Information Date of Procedure: 12/23/24 Pre-Operative Diagnosis: Right shoulder rotator cuff tear arthropathy Post-Operative Diagnosis: Right shoulder rotator cuff tear arthropathy Surgery/Procedure Performed: Right reverse total shoulder arthroplasty store receiving specialist: Yes Brain Wave Technician: Oneyda Solano Tasks completed by mate first: Opening closing, Implanting device, Hemostasis: Electrocautery [...] No Description of surgery: Patient arrived to [facility] morning of the procedure and was greeted [...] in the beachchair position. A well-padded head sawyer was applied. The nonoperative extremity was placed [...] cartilaginous carla (more content not included)... Normal [facility] Shoulder min 2 Viewson 12-23 Shoulder min 2 Views [facility] Imaging Services [address] [place] [address] Shoulder min 2 Views MR#: [id number] Acct: [id number] Name: MARIA E GUTHRIE Rep #: [id number] : 1950 M 74 From: Seven Suárez MD PCP: Dr. Matt Saul MD Status: [facility] Study: Shoulder min 2 Views Date of Exam: 12/23/24 Exam# [id number] Ordering Dr: Major Yi DO PROCEDURE: SHOULDER [...] IMPRESSION: Right shoulder reverse arthroplasty. Reading Location: [place] [address] CC: Dr. Matt Saul MD; Dr. Major Yi DO Contract Accountant: Signed [facility] MR/PAT.ANEon 12-04-2024 MR/PAT.ANE [facility] Medical Records Department [address] [facility] [place] [address] PAT - Anesthesia 12/04/241946 MR#: [id number] Acct: [id number] Name: MARIA E GUTHRIE Rep #: [id number] : 1950 74 From: Faheem Barroso MD PCP: Dr. Matt Saul MD Status:PRE [facility] Y Race: C Location: [facility] Pre-Assessment Diagnosis/Proposed Procedure Planned Operative Procedure(s): RIGHT REVERSE TOTAL SHOULDER ARTHROPLASTY Anesthesia History Anesthesia History - childcare center administrator: Anesthesia History - childcare center administrator Hx Hospitalization No 12/03/24 10:59 Any Problems [...] take am of surgery PONV PONV - childcare center administrator: PONV - childcare center administrator Female No 12/03/24 10:59 HX of Motion Sickness No 12/03/24 10:59 HX of N/V After Surgery No 12/03/24 10:59 Non-Smoker Yes 12/03/24 10:59 Duration of Surgery greater Yes 12/03/24 10:59 than 60 minutes Number of Risk Factors 2 12/03/24 10:59 PONV Score Moderate Risk 12/03/24 10:59 Height Weight Height Weight: Anesthesia: Height Weight Height 6 ft 04/04/24 14:18 Respiratory Assessment Respiratory Assessment - childcare center administrator: Respiratory Tract Infection Hx - childcare center administrator Hx Respiratory Tract Infection No 12/03/24 10:59 STOP Sleep Apnea STOP Sleep Apnea - childcare center administrator: STOP Sleep Apnea - childcare center administrator Hx Hypertension Yes: CONTROLLED WITH MED 12/03/24 [...] Tobacco Use History Tobacco Use History - childcare center administrator: Tobacco Use History - childcare center administrator Tobacco Use Smoking Status Never smoker 12/03/24 10:59 Hx Tobacco Use No 12/03/24 10:59 Years Smoking Packs Smoked per Day Smoking Cessation Date was within the last 15 years Hx Smoking Cessation Date Hx Smoking Cessation Counseling Hematologic Medial History 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 Normal [facility] 12 Lead EKGon 11-27-2024 12 Lead EKG [facility] Cardiovascular Services [address] [place] [address] 12 Lead EKG 11/27/24 0654 MR#: [id number] Acct: [id number] Name: MARIA E GUTHRIE W Rep #: [id number] : 1950 74 From: Seven Grey MD Attending Dr: Dr. Major Yi DO Status: PRE [facility] Ordering Dr: Major Yi DO Date: 11/27/24 Location: [facility] Sex: M C Admitted: Test [...] ECG Confirmed by Seven Grey ([id number]), editor school photograph KARINA GIVENS ([id number]) on 11/27/2024 9:43:00 AM Referred By: Major Yi Confirmed By: Seven Grey 11/27/24 0943 Date Seven Grey MD CC: Dr. Matt Saul MD; Dr. Major Yi DO Signed Normal [facility] Electrocardiogram reportOrde red By: Seven Grey on 11-27-2024 EKG study [facility] Cardiovascular Services [address] [place] [address] 12 Lead EKG 11/27/24 0654 MR#: [id number] Acct: [id number] Name: MARIA E GUTHRIE Rep #:[id number] : 1950 74 From: Seven alcantara MD Attending Dr: Dr. Major Yi DO Status: PRE [facility] Ordering Dr: Major Yi DO Date: 11/27/24 Location: [facility] Sex: M C Admitted: Test [...] block Borderline ECG Confirmed by Seven Grey ([id number]), editor school photograph KARINA GIVENS ([id number]) on 59:43:00 AM Referred By: Major Yi Confirmed By: Seven Grey 11/27/24 0943 Date _ Seven Grey MD CC: Dr. Matt Saul MD; Dr. Major Yi DO ~ Signed [facility] Work Phone: Extremity Upper without Cont raon 11-26-2024 Extremity Upper without Contra [facility] Imaging Services [address] [place] [id number] Extremity Upper without Contra MR#: [id number] Acct: [id number] Name: MARIA E GUTHRIE Rep #: [id number] : 1950 M 74 From: Gonzalez Garcia MD PCP: Dr. Matt Saul MD Status: REG CLI Study: Extremity Upper without Contra Date of Exam: 0 11/26/24 Exam# [id number] Ordering Dr: Major Yi DO PROCEDURE: EXTREMITY [...] GAURAV CC: Dr. Matt Saul MD; Dr. Maojr Yi DO Contract Accountant: Signed Normal [facility] Urgent Care Visit Reporton 0 07-09-2024 Urgent Care Visit Report [facility] [address], [address] [place] [address] OFFICE VISIT Date of Service: 07/09/24 MR#: [id number] Acct: [id number] Name: MARIA E GUTHRIE Rep #: [id number] : 1950 Provider: EDILSON Salinas Age/Sex: 74/M Location: [facility] Status: Signed Intake Vital Signs 04/04/24 [...] Reasons: RASH ON BACK Chief Complaint: rash Box Packer Required: No Is patient in pain?: Yes Allergies Gexpyfh-TQZ-UuE Reductase Inhibitor (Kagaavn-Ety-Uru Reductase Inhibitor) Adverse Reaction (Mild, Verified 07/09/24 17:33) myalgias Have you fallen in the past year?: No Nurse's Note: rash to left upper buttock/low back x 3-4 days with burning. 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 No mcwf-nxl-gkdahli products taken to assist. No other associated symptoms and no other alleviating/aggravatin g factors. ROS Const Constitutional: No other (As above) Exam Const General: cooperative, healthy appearing and no acute distress Nutritional Appearance: average body habitus Orientation: alert and awake HENAR Head: normal to inspection Ears: hearing grossly [...] Rodríguez Signature: Date (if applicable) CC: Normal [facility] Ankle min 3 Viewson 06-19-19 25 Ankle min 3 Views [facility] Imaging Services [address] [place] [address] [id number] Ankle min 3 Views MR#: [id number] Acct: [id number] Name: MARIA E GUTHRIE Rep #: [id number] : 1950 M 74 From: Tenzin Joshua MD PCP: Dr. Matt Saul MD Status: REG CLI Study: Ankle min 3 Views Date of Exam: 06/18/24 Exam# [id number] Ordering Dr: Matt Saul EXAM: XR Right [...] evaluation with CT is recommended. Reading [facility] CC: Dr. Matt Saul MD Contract Accountant: Signed Normal [facility] Foot min 3 Viewson Foot min 3 Views [facility] Imaging Services [address] [place], [place] [id number] Foot min 3 Views MR#: [id number] Acct: [id number] Name: MARIA E GUTHRIE Rep #: [id number] : 1950 M 74 From: Pako de leon MD PCP: Dr. Matt Saul MD Status: REG CLI Study: Foot min 3 Views Date of Exam: 06/18/24 Exam# [id number] Ordering Dr: Matt Saul PROCEDURE: FOOT MIN [...] suggestive of gout. Calcaneal spurs. Reading Location: [id number] CC: Dr. Matt Saul MD Contract Accountant: Signed Normal [facility] Cardiology Visit Reporton Cardiology Visit Report [facility] [address] [place], [place] [address] OFFICE VISIT Date of Service: 04/04/24 MR#: [id number] Acct: [id number] Name: MARIA E GUTHRIE Rep #: [id number] : 1950 Provider: Dr. Nathan Purcell MD Age/Sex: 73/M Location: [facility] Status: Signed HPI HPI History of [...] has been put on Praluent by the [facility]. From a cardiac standpoint, the patient [...] Monitor Intake Visit Reasons: 1 Y FU Box Packer Required: No Accompanied by: Self Is patient in pain?: No Allergies Kicjkvj-SLQ-YlC Reductase Inhibitor (Nkglawi-Egu-Bmu Reductase Inhibitor) Adverse Reaction (Mild, Verified 04/04/24 [...] Osteoarthritis Gout Atherosclerosis of coronary artery of [place] heart without angina pectoris PTSD (post-traumatic stress [...] no acu (more content not included)... Normal [facility] CNOVon 02-26-2024 CN Office Visit (GENSWS ) MARIA E GUTHRIE ([id number]) 1950 Date Time Provider Department 02/26/24 1:00 PM MADDIE BERNSTEIN GENS During your visit today, we recorded the following information about you: Maddie Bernstein APRN.CNP 02/26/2024 1:03 PM Signed FOLLOW UP VISIT - ENDOSCOPY Maria E John Maksim 1950 [id number] REFERRING PHYSICIAN: Matt Saul ([facility]) [address] [place] [id number] Maria E Guthrie is a patient I [...] Maddie Bernstein APRN.BALJIT Referring Provider: MATT SAUL [[id number]] Allergies As of Date: 02/26/2024 Noted Allergy Reaction ZOCOR (SIMVASTATIN) 08/15/2006 5 - Intolerance Comments: myalgias Date Reviewed: 02/26/2024 Reviewed by: Maddie Bernstein APRN.GOODS LAYER - Fully Assessed Reason for Visit: Follow Up [171] Cmt: Review colonoscopy results. Primary Visit Diagnosis:History of colonic polyps [Z86.0100] Prescriptions as of 02/26/2024 - alirocumab (PRALUENT) 150 mg/mL pen Inject 150 mg subcutaneously. - losartan (COZAAR) 100 mg tablet Take 100 mg by mouth. - fluticasone (FLONASE) 50 mcg/actuation nasal spray Use 1 [place] in the nose once daily. - cyanocobalamin [...] Status:Closed by MADDIE BERNSTEIN on 02/26/24 Normal [facility] [id number] 02-19-2024 [id number] HNO ID: [id number] Author: ESTELLE BIRD RN Service: ? Author Type: Registered Nurse Type: [id number] Filed: 02/19/2024 12:17 Note Text: The patient received a copy of Colonoscopy discharge instructions that contain information for how to contact the physician who performed the procedure and when to seek medical care. Normal [facility] Colonoscopyon 02-19-2024 [facility] Patient Name: Maria E [...] previous diet. Procedure Code(s): --- Professional --- 25598, Colonoscopy, flexible; with biopsy, single or multiple G0500, Moderate sedation services provided by the same physician or other qualified health vp care management performing a gastrointestinal endoscopic service that sedation supports, requiring the presence of an independent trained observer to assist in the monitoring of the patient's level of consciousness and physiological status; initial 15 minutes of intra-service time; patient age 5 years or older (additional time may be reported with 10766, as appropriate) Diagnosis Code(s): --- Professional --- Z12.11, Encounter for screening for malignant neoplasm of colon Z86.010, Personal history of colonic polyps K64.8, Other hemorrhoids D12.5, Benign neoplasm of sigmoid colon CPT copyright 2020 [employer]. All rights reserved. The codes documented in this report are preliminary and upon medical record coder review may be revised to meet current compliance requirements. Attending Participation: I personally performed the entire procedure. Scope In: 11:39:45 AM Scope Out: 11:54:37 AM MD Demetri Sainz MD 02/19/2024 12:01:02 PM This report has been signed electronically by Demetri Lord MD Number of Addenda: 0 Note Initiated On: 02/19/2024 11:28 AM Estimated Blood Loss: Estimated blood loss was minimal. Normal [facility] Colonoscopy Study observatio non 02-19-2024 [facility] Gastrointestinal Endoscopy Patient Name: Maria E [...] previous diet. Procedure Code(s): --- Professional --- 32579, Colonoscopy, flexible; with biopsy, single or multiple G0500, Moderate sedation services provided by the same physician or other qualified health vp care management performing a gastrointestinal endoscopic service that sedation sup (more content not included)... [facility] Radiology Study observation (narrative) [facility] HISTORY PHYSICALon HISTORY PHYSICAL HNO ID: [id number] Author: DEMETRI LORD MD Service: General Surgery [...] colonoscopy 06/[address] Park at [facility]. Sedation:Midazolam 5 mg IV, Fentanyl 100 [...] (FLONASE) 50 mcg/actuation nasal spray Use 1 [place] in the nose once daily. cyanocobalamin (VITAMIN [...] The pa (more content not included)... Normal [facility] SURGICAL PATHOLOGYon 024 CASE REPORT Normal [facility] Comment on above: Order Comment: Speci men Type: TISSUE SPECIMEN [facility]ing [facility] Address: [address] [place] [address] Result Comment: Surg ical Pathology Report Case: [id number] Authorizing Provider: Demetri Lord MD Collected: 02/19/2024 11:51 AM Ordering Location: Ambulatory Surgery Received: 02/19/2024 12:46 PM Pathologist: Tracie Hwang MD Specimen: Colon, Sigmoid, Polyp Performed By: #### S #### [facility] CLIA [id number] [address] [place] [address] [place] FINAL DIAGNOSIS Normal [facility] Comment on above: Order Comment: Speci men Type: TISSUE SPECIMEN Ordering Facility: [facility] Address: [address] [place] [address] Result Comment: A. C olon, sigmoid, polyp, polypectomy -Tubular adenoma Performed By: #### S #### [facility] CLIA [id number] [address] [place] [address] [place] FINAL PERFORMING LAB Normal [facility] Comment on above: Order Comment: Speci men Type: TISSUE SPECIMEN Ordering Facility: [facility] Address: [address] [place] [address] Result Comment: Diag nostic interpretation performed at [facility], [address] [place] [address] CLIA# [id number] Medical Collections Specialist: Karel Singer M.D. Performed By: #### S #### [facility] CLIA [id number] [address] [place] [address] [place] GROSS DESCRIPTION Normal [facility] Comment on above: Order Comment: Speci men Type: TISSUE SPECIMEN Ordering Facility: [facility] Address: [address] [place] [address] Result Comment: A. Luna olon, Sigmoid, Polyp Received in formalin is one piece of simon, soft tissue measuring 0.4 x 0.3 x 0.2 cm. Totally submitted in one cassette. KDK February 19, 2024 7:33 PM Gross examination performed at [facility], [address] [place] [address] Performed By: #### S #### [facility] CLIA [id number] [address] [place] [id number] CNOVon 02-16-2024 CNOV Office Visit (GENSWS ) MARIA E GUTHRIE ([id number]) 1950 Date Time Provider Department 02/16/24 2:00 [...] colonoscopy 06/[address] Park at [facility]. Sedation:Midazolam 5 mg IV, Fentanyl 100 [...] (FLONASE) 50 mcg/actuation nasal spray Use 1 [place] in the nose once daily. cyanocobalamin (VITAMIN [...] stent. Respir (more content not included)... Normal [facility]-[address] [facility]) MARIA E GUTHRIE ([id number]) 1950 M Date Time Provider Department 02/16/24 MOLLY BERNSTEIN During your visit today, we recorded the following information about you: Melanie Marcelino 02/16/2024 2:37 PM Signed 02-19-2024 Colonoscopy concepción EFREN Cook prep, nurse went over instructions yudy has direct number to contact for any questions or concerns., Instructed patient to arrive at 1045 in [facility] Allergies As of Date: 02/16/2024 Noted Allergy Reaction ZOCOR (SIMVASTATIN) 08/15/2006 5 - Intolerance Comments: myalgias Date Reviewed: 02/16/2024 Reviewed by: Maddie Bernstein APRN.GOODS LAYER - Fully Assessed Reason for Visit: 02-19-2024 Colonscoopy [Other] Prescriptions as of 03/18/2024 - alirocumab (PRALUENT) 150 mg/mL pen Inject 150 mg subcutaneously. - losartan (COZAAR) 100 mg tablet Take 100 mg by mouth. - fluticasone (FLONASE) 50 mcg/actuation nasal spray Use 1 [place] in the nose once daily. - cyanocobalamin [...] Encounter Status:Closed by MELANIE MARCELINO on 03/18/24 [facility] No Panel InformationOrdered By: Joe Joshua on 08-18-2023 Troponin I High Sensitivity 9 pg/mL 3.0-78.0 [facility] Comment on above: Please Note: New Nighat t Units and Gender Specific Reference Ranges. For more information see Policy Stat Procedure Palmer High Sensitivity Troponin (TNIH) and attachments. Absolute lymphocyte countOrd ered By: Joe Joshua on 08-17-2023 Lymphocytes Auto (Unsp spec) [#/Vol] 2.02 10*3/uL 0.83-4.51 [facility] Automated lymphocyte count a s percentage of total leukocytesOrdered By: Joe Joshua on 08-17-2023 Lymphocytes/100 WBC Auto (Unsp spec) 49.8 % 19-41 [facility] Basophil percentageOrdered B y: Joe Joshua on 08-17-2023 Basophils/100 WBC (Bld) 0.5 % 0-1 [facility] Chloride [Moles/Vol] 101 mmol/L 98-107 [facility] Eosinophils/100 WBC (Bld) 0.7 % 0-5 [facility] Glucose [Mass/Vol] 195 mg/dL 74-106 [facility] Comment on above: Fasting Glucose resu lt greater than or equal to 126 mg/dL suggests DIABETES MELLITUS per A.D.A. criteria. Hemoglobin (Bld) [Mass/Vol] 15.4 g/dL 13.0-16.5 [facility] Monocytes/100 WBC (Bld) 10.1 % 0-10 [facility] Neutrophils (Bld) [#/Vol] 1.6 10*3/uL 2.0-7.7 [facility] Neutrophils/100 WBC (Bld) 38.9 % 47-70 [facility] Potassium [Moles/Vol] 3.1 mmol/L 3.5-5.1 [facility] Sodium [Moles/Vol] 135 mmol/L 136-145 [facility] WBC (Bld) [#/Vol] 4.1 10*3/uL 4.4-11.0 [facility] Determination of erythrocyte mean corpuscular volume (MCV)Ordered By: Joe Joshua on 08-17-2023 MCV (RBC) [Entitic vol] 87.0 fL 80-94 [facility] Erythrocyte distribution wid th ratioOrdered By: Joe Joshua on 08-17-2023 Erythrocyte distribution width (RBC) [Ratio] 13.0 % 11.6-14.6 [facility] Erythrocyte distribution wid th standard deviationOrdered By: Joe Joshua on 08-17-2023 Erythrocyte distribution width (RBC) [Entitic vol] 40.8 fL 35.1-43.9 [facility] Hematocrit Auto (Bld) [Volum e fraction]Ordered By: Joe Joshua on 08-17-2023 Hematocrit (Bld) [Volume fraction] 45.4 % 40-54 [facility] Immature granulocytes/100 WB C Auto (Bld)Ordered By: Joe Joshua on 08-17-2023 Immature granulocytes/100 WBC (Bld) 0.000 % 0.0-0.9 [facility] Comment on above: IG% - Immature Granu locytes (promyelocytes, myelocytes and metamyelocytes) > 1% indicates that a LEFT SHIFT is Present. Laboratory - Chemistry and C hemistry - challengeOrdered By: Joe Joshua on 08-17-2023 CO2 [Moles/Vol] 29.0 mmol/L 21.0-32.0 [facility] Urea nitrogen/Creatinine [Mass ratio] 18.5 mg/mg 10-20 [facility] Laboratory - Hematology and Cell countsOrdered By: Joe Joshua on 08-17-2023 MCH (RBC) [Entitic mass] 29.5 pg 27.0-32.0 [facility] MCHC (RBC) [Mass/Vol] 33.9 g/dL 32-36 [facility] Nucleated RBC/100 WBC (Bld) [Ratio] 0 % 0-5 [facility] Platelet mean volume (Bld) [Entitic vol] 10.7 fL 6.2-12.0 [facility] Platelets (Bld) [#/Vol] 147 10*3/uL 150-450 [facility] No Panel InformationOrdered By: Joe Joshua on 08-17-2023 D-Dimer Quantitative (PE/DVT) 0.44 FEU/ug/m 0.27-0.49 [facility] Comment on above: NORMAL D-Dimer level (<0.50) indicates no DVT or PE. Estimated Creatinine Clearance Calc 72.22 ml/min [facility] Estimated GFR (MDRD) Amer 97 mL/min >60 [facility] [place] Comment on above: GFR Calc Estimated GFR (MDRD) Non-Af Amer 80 mL/min >60 [facility] Comment on above: Non- GFR Calc RBC Auto (Bld) [#/Vol]Ordere d By: Joe Joshua on 08-17-2023 RBC (Bld) [#/Vol] 5.22 10*6/uL 4.6-6.2 [facility] Serum or plasma calcium collin urement (mass/volume)Ordered By: Joe Joshua on 08-17-2023 Calcium [Mass/Vol] 9.4 mg/dL 8.5-10.1 [facility] Serum or plasma creatinine m easurement (mass/volume)Ordered By: Joe Joshua on 08-17-2023 Creatinine [Mass/Vol] 0.97 mg/dL 0.70-1.30 [facility] Comment on above: The validity of the calculated GFR & GFRAA in patients over 70 years has not been determined. Clinical correlation is essential. Serum or plasma urea nitroge n measurement (mass/volume)Ordered By: Joe Joshua on 08-17-2023 Urea nitrogen [Mass/Vol] 18 mg/dL 7-18 [facility] Thin prep Papanicolaou smear with manual screeningOrdered By: Joe Joshua on 08-17-2023 Thin prep Papanicolaou smear with manual screening 5 5-15 [facility] No Panel Informationon 05-17 Influenza Types A,B Rapid (Clinic) Pos FLU A &Neg FLU B [facility] Office Visiton 11-08-2016 Fall risk assessment No [facility] Work Phone: [phone] Protein mass conc Done [facility] Work Phone: [phone] Chart Maintenanceon 11-07-19 17 Left ventricular Ejection fraction 75 % [facility] Work Phone: Office Visiton 03-29-2016 Dietary management education, guidance, and counseling (procedure) yes Invalid Interpretation Code [facility] Work Phone: [phone] Documentation of current medications (procedure) Done Invalid Interpretation Code [facility] Work Phone: [phone] Tobacco smoking status NHIS Never smoker [facility] Work Phone: [phone] Tobacco use CPHS Never smoker Invalid Interpretation Code [facility] Work Phone: [phone] Clinical Lists Update: Prelo evening anchor 12-22-2015 Alanine aminotransferase (ALT) 45 U/L [facility] Work Phone: [phone] Albumin 4.1 g/dL [facility] Work Phone: [phone] Alkaline phosphatase (ALP) 51 U/L Invalid Interpretation Code [facility] Work Phone: [phone] ALP enzyme act/vol (Bld) 51 U/L [facility] Work Phone: [phone] Anion gap 16 mmol/L Invalid Interpretation Code [facility] Work Phone: [phone] Anion gap molar conc 16 mmol/L [facility] Work Phone: [phone] Aspartate aminotransferase (AST) 40 U/L [facility] Work Phone: [phone] Bilirubin (total) 0.5 mg/dL [facility] Work Phone: [phone] Calcium 8.9 mg/dL [facility] Work Phone: [phone] Chloride 109 mmol/L High [facility] Work Phone: [phone] Cholesterol 202 mg/dL High [facility] Work Phone: [phone] CO2 19 mmol/L Low [facility] Work Phone: [phone] CO2 ppres (BldV) 19 mmol/L Low [facility] Work Phone: [phone] Creatinine 1.0 mg/dL [facility] Work Phone: [phone] Erythrocyte distribution width Ratio (RBC) 13.6 % [facility] Work Phone: [phone] Erythrocytes (RBC) 5.69 10*6/uL Invalid Interpretation Code [facility] Work Phone: [phone] Glucose 117 mg/dL Invalid Interpretation Code [facility] Work Phone: [phone] Glucose mass conc 117 mg/dL [facility] Work Phone: [phone] HbA1c 6.5 % High [facility] Work Phone: [phone] HDL Cholesterol 45 mg/dL [facility] Work Phone: [phone] Hematocrit (HCT) 49.1 % Invalid Interpretation Code [facility] Work Phone: [phone] Hematocrit Volume Fraction (Bld) 49.1 % [facility] Work Phone: [phone] Hemoglobin (HGB) 16.6 g/dL [facility] Work Phone: [phone] LDL Cholesterol 130 mg/dL High [facility] Work Phone: [phone] Magnesium 2.3 mg/dL [facility] Work Phone: [phone] MCH 29.2 pg Invalid Interpretation Code [facility] Work Phone: [phone] MCH Entitic mass (RBC) 29.2 pg [facility] Work Phone: [phone] MCHC 33.8 g/dL Invalid Interpretation Code [facility] Work Phone: [phone] MCHC mass conc (RBC) 33.8 g/dL [facility] Work Phone: [phone] MCV 86.3 fL Invalid Interpretation Code [facility] Work Phone: [phone] MCV Entitic volume (RBC) 86.3 fL [facility] Work Phone: [phone] Platelets 245 10*3/mm3 Invalid Interpretation Code [facility] Work Phone: [phone] Platelets #/vol (Bld) 245 10*3/mm3 [facility] Work Phone: [phone] Potassium 3.9 mmol/L [facility] Work Phone: [phone] Protein 7.3 g/dL [facility] Work Phone: [phone] RBC #/vol (Bld) 5.69 10*6/uL [facility] Work Phone: [phone] RDW-CA 13.6 % Invalid Interpretation Code [facility] Work Phone: [phone] Sodium 140 mmol/L [facility] Work Phone: [phone] Thyroid stimulating hormone (TSH) 1.23 u[iU]/mL [facility] Work Phone: [phone] Thyroxine (T4) free 1.05 ng/dL [facility] Work Phone: [phone] Triglyceride 272 mg/dL High [facility] Work Phone: [phone] Urea nitrogen 19 mg/dL [facility] Work Phone: [phone] WBC #/vol (Bld) 4.84 10*3/uL [facility] Work Phone: [phone] WBC (Leukocytes) 4.84 10*3/uL Invalid Interpretation Code [facility] Work Phone: [phone] Lab Report: Lipid Profileon 04-08-2015 very low density lipoproteins 35 mg/dL 5-40 [facility] Work Phone: [phone] Lab Report: Liver Profileon 04-08-2015 Bilirubin (direct) 0.12 mg/dL 0.00-0.30 [facility] Work Phone: [phone] Globulin 3.2 g/dL Invalid Interpretation Code 2.3-3.5 [facility] Work Phone: [phone] Globulin mass conc (S) 3.2 g/dL 2.3-3.5 [facility] Work Phone: [phone] Clinical Lists Update: Prelo evening anchor 04-02-2014 Globulin 3.0 g/dL Invalid Interpretation Code [facility] Work Phone: [phone] Globulin mass conc (S) 3.0 g/dL [facility] Work Phone: [phone] External Other: Preferred Me thod of Contacton 04-02-2014 methcontact secmsg [facility] Work Phone: [phone] Patient's prefered method of contact secmsg Invalid Interpretation Code [facility] Work Phone: [phone] Lab Report: Liver Profileon 04-02-2014 ALK P 49 U/L Critically low 50-136 [facility] Work Phone: [phone] GE use only - for [employer] import when terms are not otherwise specified 49 U/L Critically low 50-136 [facility] Work Phone: [phone] Office Visiton 03-31-2014 cardiac risk group C [facility] Work Phone: [phone] General cardiovascular disease 10Y risk [#] [place] Work Phone: Vital Signs Date Time Vital Sign Value Performing Clinician Alexa bedoya 12-24-2024 08:33-0400 Heart rate 58 /min Dr. Matt Saul MD Work Phone: [facility] 12-24-2024 08:26-0400 Body temperature 97.6 [degF] Dr. Matt Saul MD Work Phone: [facility] 12-24-2024 08:26-0400 Diastolic blood pressure 71 mm[Hg] Dr. Matt Saul MD Work Phone: 9(210)148-282963 [place] [address] 12-24-2024 08:26-0400 Respiratory rate 18 /min Dr. Matt Saul MD Work Phone: 6(418)219-826047 [address] 12-24-2024 08:26-0400 SaO2% (BldA) [Mass fraction] 95 % Dr. Matt Saul MD Work Phone: 8(377)010-445447 [address] 12-24-2024 08:26-0400 Systolic blood pressure 128 mm[Hg] Dr. Matt Saul MD Work Phone: 6(598)168-437847 [address] 12-23-2024 18:43-0400 Inhaled oxygen flow rate 2 L/min Dr. Matt Saul MD Work Phone: [facility] 12-23-2024 14:44-0400 Body height 182.[address] Matt Saul MD Work Phone: 8(274)748-961847 [address] 12-23-2024 14:44-0400 Body mass index (BMI) [Ratio] 26.9 kg/m2 Dr. Matt Saul MD Work Phone: 5(973)041-260563 [place] [address] 12-23-2024 14:44-0400 Body weight [address] Matt Saul MD Work Phone: 4(988)637-518284 [place] [address] 04-04-2024 14:18-0500 Body height 182.[address] Matt Saul MD Work Phone: 0(862)[phone] [address] 04-04-2024 14:18-0500 Body mass index (BMI) [Ratio] 27.2 kg/m2 Dr. Matt Saul MD Work Phone: [facility] 04-04-2024 14:18-0500 Body weight 91.[address] Matt Saul MD Work Phone: [facility] 04-04-2024 14:18-0500 Diastolic blood pressure 90 mm[Hg] Dr. Matt Saul MD Work Phone: [facility] 04-04-2024 14:18-0500 Heart rate 69 /min Dr. Matt Saul MD Work Phone: [facility] 04-04-2024 14:18-0500 Respiratory rate 16 /min Dr. Matt Saul MD Work Phone: [facility] 04-04-2024 14:18-0500 Systolic blood pressure 132 mm[Hg] Dr. Matt Saul MD Work Phone: [facility] 02-19-2024 12:20-0500 Diastolic blood pressure 72 mm[Hg] Demetri Lord MD Work Phone: [facility] 02-19-2024 12:20-0500 Heart rate 55 /min Demetri Lord MD Work Phone: [facility] 02-19-2024 12:20-0500 Respiratory rate 16 /min Demetri Lord MD Work Phone: [facility] 02-19-2024 12:20-0500 SaO2% (BldA) [Mass fraction] 95 % Demetri Lord MD Work Phone: [facility] 02-19-2024 12:20-0500 Systolic blood pressure 115 mm[Hg] Demetri Lord MD Work Phone: [facility] 02-19-2024 10:40-0500 Body mass index (BMI) [Ratio] 27.18 kg/m2 Demetri Lord MD Work Phone: [facility] 02-19-2024 10:40-0500 Body temperature 98.4 [degF] Demetri Lord MD Work Phone: [facility] 02-19-2024 10:40-0500 Body weight 90.9 kg Demetri Lord MD Work Phone: [facility] 02-16-2024 14:03-0400 Body height 182.9 cm Maddie Jakob [employer] Work Phone: [facility] 02-16-2024 14:03-0400 Body mass index (BMI) [Ratio] 27.18 kg/m2 Maddie Jakob [employer] Work Phone: [facility] 02-16-2024 14:03-0400 Body temperature 97.81 [degF] Maddie Jakob [employer] Work Phone: [facility] 02-16-2024 14:03-0400 Body weight 90.9 kg Maddie Jakob [employer] Work Phone: [facility] 02-16-2024 14:03-0400 Diastolic blood pressure 82 mm[Hg] Maddie Jakob [employer] Work Phone: [facility] 02-16-2024 14:03-0400 Heart rate 80 /min Maddie Jakob [employer] Work Phone: [facility] 02-16-2024 14:03-0400 SaO2% (BldA) [Mass fraction] 92 % Maddie Jakob [employer] Work Phone: [facility] 02-16-2024 14:03-0400 Systolic blood pressure 138 mm[Hg] Maddie Jakob [employer] Work Phone: [facility] 08-18-2023 01:00-0400 Body temperature 98.5 [degF] Dr. Matt Saul Work Phone: [facility] 08-18-2023 01:00-0400 Diastolic blood pressure 91 mm[Hg] Dr. Matt Saul Work Phone: [facility] 08-18-2023 01:00-0400 Heart rate 59 /min Dr. Matt Saul Work Phone: [facility] 08-18-2023 01:00-0400 Respiratory rate 18 /min Dr. Matt Saul Work Phone: 6(496)499-990747 [address] 08-18-2023 01:00-0400 SaO2% (BldA) [Mass fraction] 98 % Dr. Matt Saul Work Phone: [facility] 08-18-2023 01:00-0400 Systolic blood pressure 148 mm[Hg] Dr. Matt Saul Work Phone: 0(877)743-827784 [place] [address] 08-17-2023 21:03-0400 Body height 182.[address] Matt Saul Work Phone: 9(648)660-710463 [place] [address] 08-17-2023 21:03-0400 Body mass index (BMI) [Ratio] 27.7 kg/m2 Dr. Matt Saul Work Phone: 3(367)896-414747 [address] 08-17-2023 21:03-0400 Body weight 92.[address] Matt Saul Work Phone: 7(166)938-738263 [place] [address] 05-17-2023 11:30-0500 Body mass index (BMI) [Ratio] 28.2 kg/m2 Dr. Matt Saul Work Phone: 5(984)736-410684 [place] [address] 05-17-2023 11:30-0500 Body temperature 97.8 [degF] Dr. Matt Saul Work Phone: 3(998)334-303884 [place] [address] 05-17-2023 11:30-0500 Body weight 94.[address] Matt Saul Work Phone: 7(657)669-517163 [place] [address] 05-17-2023 11:30-0500 Diastolic blood pressure 76 mm[Hg] Dr. Matt Saul Work Phone: 2(262)865-721347 [address] 05-17-2023 11:30-0500 Heart rate 71 /min Dr. Matt Saul Work Phone: [facility] 05-17-2023 11:30-0500 Respiratory rate 16 /min Dr. Matt Saul Work Phone: [facility] 05-17-2023 11:30-0500 SaO2% (BldA) [Mass fraction] 96 % Dr. Matt Saul Work Phone: [facility] 05-17-2023 11:30-0500 Systolic blood pressure 140 mm[Hg] Dr. Matt Saul Work Phone: [facility] 02-08-2023 13:58-0400 Body height 182.[address] Armond Saul Work Phone: 8(021)909-969547 [address] 02-08-2022 13:51-0400 Body height 182.[address] Armond Saul Work Phone: 0(303)355-948147 [address] 02-08-2022 13:51-0400 Body mass index (BMI) [Ratio] 26.9 kg/m2 Dr. Armond Saul Work Phone: 5(681)049-677584 [place] [address] 02-08-2022 13:51-0400 Body mass index (BMI) [Ratio] 28 kg/m2 Dr. Armond Saul Work Phone: [facility] 02-08-2022 13:51-0400 Body weight 90.[address] Armond Saul Work Phone: [facility] 02-08-2022 13:51-0400 Body weight 93.[address] Armond Saul Work Phone: [facility] 02-08-2022 13:51-0400 Diastolic blood pressure 91 mm[Hg] Dr. Armond Saul Work Phone: [facility] 02-08-2022 13:51-0400 Diastolic blood pressure 84 mm[Hg] Dr. Armond Saul Work Phone: [facility] 02-08-2022 13:51-0400 Heart rate 70 /min Dr. Armond Saul Work Phone: [facility] 02-08-2022 13:51-0400 Heart rate 67 /min Dr. Armond Saul Work Phone: [facility] 02-08-2022 13:51-0400 Respiratory rate 16 /min Dr. Armond Saul Work Phone: [facility] 02-08-2022 13:51-0400 Respiratory rate 18 /min Dr. Armond Saul Work Phone: [facility] 02-08-2022 13:51-0400 SaO2% (BldA) [Mass fraction] 95 % Dr. Armond Saul Work Phone: [facility] 02-08-2022 13:51-0400 SaO2% (BldA) [Mass fraction] 94 % Dr. Armond Saul Work Phone: [facility] 02-08-2022 13:51-0400 Systolic blood pressure 155 mm[Hg] Dr. Armond Saul Work Phone: [facility] 02-08-2022 13:51-0400 Systolic blood pressure 132 mm[Hg] Dr. Armond Saul Work Phone: [facility] 11-08-2016 13:10-0400 BMI (Body Mass Index) 28.87 kg/m2 [facility] Work Phone: 11-08-2016 13:10-0400 BP Diastolic 68 mm[Hg] [facility] Work Phone: 11-08-2016 13:10-0400 BP Systolic 130 mm[Hg] [facility] Work Phone: 11-08-2016 13:10-0400 Height 180.[address] [facility] Work Phone: 11-08-2016 13:10-0400 Pulse (Heart Rate) 58 /min [facility] Work Phone: 11-08-2016 13:10-0400 Respiratory [...] Provider Facility Start: 02-26-2025 ambulatory Oneyda Solano Facility:[facility] Start: 01-15-2025 Registered Recurring Oneyda Solano PA -Physical Therapy Work Phone: Start: 01-06-2025 End: 01-06-[address] Matt Saul MD Work Phone: -Laboratory Specimen Start: 01-06-2025 End: 01-06-[address] Matt Saul MD -Laboratory Specimen Work Phone: Start: 01-06-2025 End: 01-06-2025 ambulatory Matt Saul Facility:[facility] Start: 12-26-2024 Encounter for other preprocedural examination [facility] Start: 12-26-2024 Encounter for preprocedural cardiovascular examination [facility] Start: 12-24-2024 Non-patient / Non-visit Dr. Yumiko Carrillo MD -[facility] Work Phone: Start: 12-23-2024 Non-patient / Non-visit [facility]. Mckeon [facility] -[facility] Work Phone: Start: 12-23-2024 End: 12-24-2024 ambulatory Major Yi Facility:[facility] Start: 12-23-2024 End: 12-24-2024 Evaluation and management of inpatient Dr. Major Yi DO -Medical Surgical 3 Work Phone: Start: 12-23-2024 End: 12-24-[address] Matt Saul MD Work Phone: -Medical Surgical 3 Start: 11-27-2024 ambulatory Major Carrascoi ty:[facility] Start: 11-27-2024 Non-patient / Non-visit Dr. Seven Grey MD -[facility] Work Phone: Start: 11-26-2024 End: 11-26-[address] Matt Saul MD Work Phone: -Cat Scan [facility] Start: 11-26-2024 End: 11-26-[address] Major Yi DO -Cat Scan [facility] Work Phone: Start: 11-26-2024 End: 11-26-2024 ambulatory Major Yi Facility:[facility] Start: 07-09-2024 End: 07-09-2024 ambulatory Yang WAGGONER Facility:[facility] Start: 06-18-2024 End: 06-18-[address] Matt Saul MD Work Phone: [facility] Work Phone: Start: 06-18-2024 End: 06-18-[address] Matt Saul MD -Radiology, Bureau Work Phone: Start: 06-18-2024 End: 06-18-2024 ambulatory Matt [place] Facility:[facility] Start: 04-04-2024 End: 04-04-[address] Nathan Purcell MD -[facility] Work Phone: Start: 04-04-2024 End: 04-04-2024 ambulatory Nathan Purcell Facility:[facility] Start: 02-26-2024 End: 02-26-2024 ambulatory [facility] Facility:[facility] Start: 02-26-2024 End: 02-26-2024 Patient encounter procedure Maddie Bernstein APRN.[employer] Work Phone: General Surgery Comment on above: History of colonic p olyps (Primary Dx) Start: 02-19-2024 End: 02-19-2024 ambulatory [facility] Facility:[facility] Start: 02-19-2024 End: 02-19-2024 Subsequent hospital visit by physician Demetri Lord MD Work Phone: Ambulatory Surgery Comment on above: History of colonic p olyps [Z86.0100] Start: 02-16-2024 End: 02-16-2024 ambulatory [facility] Facility:[facility] Start: 02-16-2024 End: 02-16-2024 Patient encounter procedure Maddie Bernstein APRN.[employer] Work Phone: General Surgery Comment on above: History of colonic p olyps (Primary Dx); Screen for colon cancer Start: 02-16-2024 End: 03-18-2024 Telephone encounter Molly VEGA General Surgery Comment on above: 02-19-2024 [place] Start: 08-17-2023 End: 08-18-2023 Emergency department patient visit Dr. Matt Saul Work Phone: [facility]-Emergency Department Work Phone: Start: 05-17-2023 End: 05-17-[address] Matt Saul Work Phone: [facility] Work Phone: Start: 03-15-2023 Non-patient / Non-visit Dr. Jabier Saul Work Phone: [facility] Work Phone: Start: 03-14-2023 Non-patient / Non-visit Dr. Jabier Saul Work Phone: [facility] Start: 03-14-2023 End: 03-14-[address] Armond Saul Work Phone: [facility] Work Phone: Start: 03-14-2023 End: 03-14-[address] Armond Saul Work Phone: [facility]-Cardiovascul ar Services Work Phone: Start: 02-08-2023 End: 02-08-[address] Armond Saul Work Phone: [facility] Work Phone: Start: 05-20-2022 Non-patient / Non-visit Dr. Jabier Saul Work Phone: [facility] Start: 05-17-2022 Non-patient / Non-visit Dr. Jabier Saul Work Phone: [facility] Start: 05-17-2022 End: 05-17-[address] Armond Saul Work Phone: [facility] Work Phone: Start: 05-17-2022 End: 05-17-[address] [facility] Start: 05-04-[address] Rowdy Saul Work Phone: [facility] Start: 02-08-2022 End: 02-08-[address] Armond Saul Work Phone: [facility] Procedures Date Procedure Procedure [...] dx w/collj spec when pfrmd Maddie Bernstein [employer] Work Phone: Start: 02-19-2024 Colonoscopy Demetri abernathy [...] - S marciano or Plasma Maddie Bernstein APRN.[employer] Work Phone: Start: 03-31-2014 End: 04-02-2014 *Hepatic [...] P,Tdap,Td Vaccine (4 - Td or Tdap) [facility] Start: 02-18-2027 Screening for malign ant neoplasm of colon [facility] Start: 12-24-2024 Patient discharge [facility] Start: 12-23-2024 Care regimes management [facility] Start: 12-23-2024 Notification of physician [facility] Start: 12-23-2024 [facility] Start: 12-23-2024 Application of intermittent pneumatic compression device [facility] Start: 12-23-2024 Following clinical p athway protocol [facility] Start: 12-23-2024 Anes arthroscopic to bernard shoulder replacement ANESTH SHOULDER REPLACEMENT [facility] Start: 12-23-2024 Prosthetic total arthroplasty of left shoulder RECONSTRUCT SHOULDER JOINT [facility] Start: 12-23-[address] [facility] Start: 12-23-2024 Ambulation therapy management [facility] Start: 12-23-2024 Application of device [facility] Start: 12-23-2024 Assessment of risk o f venous thromboembolism [facility] Start: 12-23-2024 Catheterization of vein [facility] Start: 12-23-2024 Following clinical p athway protocol [facility] Start: 12-23-2024 Incentive spirometry [facility] Start: 12-23-2024 Introduction of urin angeline catheter [facility] Start: 12-23-2024 Measuring intake and output [facility] Start: 12-23-2024 Neurovascular assessment [facility] Start: 12-23-2024 Patient education [facility] Start: 12-23-2024 Procedure discontinued [facility] Start: 12-23-2024 Provision of activit y privileges [facility] Start: 12-23-2024 Recommendation to co ritika with treatment [facility] Start: 12-23-2024 Referral to occupati onal therapist [facility] Start: 12-23-2024 Vital signs measurements [facility] Start: 12-23-2024 Wound care [facility] Start: 12-23-2024 [facility] Start: 12-23-2024 Consultation [facility] Start: 02-26-2024 End: 02-26-2024 Patient encounter procedure 02/26/2024 1:00 PM EST Office Visit General Surgery [address] [place] [address] Maddie Bernstein APRN.[employer] [address] [place] [address] Colonsocopy follow up 02-19-2024 General Surgery Comment on above: Colonsocopy follow u p 02-19-2024 Start: 02-19-2024 End: 02-19-2024 Patient encounter procedure 02/19/2024 11:45 AM EST Appointment Ambulatory Surgery [address] [place] [address] Demetri Lord MD [address] [place] [address] Ambulatory Surgery Start: 08-18-2023 [facility] Start: 08-17-2023 [facility] Start: 07-01-2023 Screening for malign ant neoplasm of colon [facility] Start: 04-17-2023 Advance Directive Discussion Advance Directive Discussion [facility] Start: 03-21-2022 Diabetes Screening Diabetes Screenin g [facility] Start: 11-15-2021 Pneumococcal Vaccine : 65+ (2 of 2 - PPSV23 or PCV20) Pneumococcal Vaccine: 65+ (2 of 2 - PPSV23 or PCV20) [facility] Start: 04-02-2019 Lipid panel Lipid Screening [facility] Start: 05-11-2017 End: 05-11-2017 Appointment Appointment [facility] Work Phone: Start: 11-08-2016 End: 11-08-2016 Appointment Appointment [facility] Work Phone: Start: 11-08-2016 End: 11-08-2016 *Hepatic Function Panel *Hepatic Function Panel [facility] Work Phone: Start: 11-08-2016 End: 11-08-2016 GERRY GARRETT [facility] Work Phone: Start: 11-08-2016 End: 11-08-2016 Follow Up Appt 6 months Follow Up Appt 6 months [facility] Work Phone: Start: 11-08-2016 End: 11-08-2016 Lipid 1996 panel *Lipid Profile CC PCP [facility] Work Phone: Start: 10-19-2016 End: 11-08-2016 *Hepatic Function Panel *Hepatic Function Panel [facility] Work Phone: Start: 10-19-2016 [...] Lipid panel [AGGREGATE] *Lipid Profile CC PCP [facility] Work Phone: Start: 03-31-2015 End: 04-08-2015 *Hepatic Function Panel *Hepatic Function Panel [facility] Work Phone: Start: 03-31-2015 End: 03-31-2015 GERRY GARRETT [facility] Work Phone: Start: 03-31-2015 End: 03-31-2015 Follow Up Appt 1 year Follow Up Appt 1 year [facility] Work Phone: Start: 03-31-2015 End: 04-08-2015 Lipid panel [AGGREGATE] *Lipid Profile CC PCP [facility] Work Phone: Start: 12-29-2014 End: 12-30-2014 Stress Echocardiogram (treadmill) Stress Echocardiogram (treadmill) [facility] Work Phone: Start: 03-31-2014 End: 04-02-2014 *Hepatic Function Panel *Hepatic Function Panel [facility] Work Phone: Start: 03-31-2014 End: 03-31-2014 GERRY GERRY [facility] Work Phone: Start: 03-31-2014 End: 03-31-2014 Follow Up Appt 1 year Follow Up Appt 1 year [facility] Work Phone: Start: 03-31-2014 End: 04-02-2014 Lipid panel [AGGREGATE] *Lipid Profile CC PCP [facility] Work Phone: Start: 03-31-2014 End: 03-31-2014 Stress Echocardiogram (treadmill) Stress Echocardiogram (treadmill) [facility] Work Phone: Start: 06-10-2013 End: 06-10-2013 GERRY GERRY [facility] Work Phone: Start: 06-10-2013 End: 06-10-2013 Follow Up Appt 1 year Follow Up Appt 1 year [facility] Work Phone: Start: 03-25-2013 End: 03-25-2013 GERRY GERRY [facility] Work Phone: Start: 03-25-2013 End: 03-25-2013 Follow Up Appt 1 year Follow Up Appt 1 year [facility] Work Phone: Start: 08-07-2005 Hepatitis B surface antibody level LDL Cholesterol [facility] Start: 1993 Screening for malign ant neoplasm of colon [facility] Start: 1966 Annual PCP Team Computer Artist kavin Disease Visit Annual PCP Team Chronic Disease Visit [facility] Start: 1966 BP Controlled (<130/80) BP Controlle d (<130/80) [facility] Start: 1966 Depression Screening Depression Scre ening [facility] Start: 1966 Hepatitis C screening Hepatitis C Sc [facility] Patient Education [facility] Work Phone: Patient referral [facility] Work Phone: End: 02-15-2025 Screening colonoscopy COLONOSCOPY SCREENING Endoscopy Routine History of colonic polyps Screen for colon cancer 1 Occurrences starting 02/16/2024 until 02/15/2025 [facility] Work Phone: Comment on above: 1 Occurrences starti ng 02/16/2024 until 02/15/2025 SURGICAL PATHOLOGY [facility] Work Phone: Comment on above: Release Upon Orderin g for 1 Occurrences starting 02/19/2024, 1 completed Immunizations Immunization Date Immunization Notes Care Provider Fa cility 07-13-2020 Covid (Moderna) Dr. Selena Saul Work Phone: [facility] 06-15-2020 Kia (Moderna) Dr. Selena Saul Work Phone: [facility] 01-30-2014 influenza, seasonal, injectable Maddie Jakob OVER HAULER HELPER.[employer] Work Phone: [facility] Work Phone: 02-09-2013 influenza virus vaccine, unspecified formulation Maddie Jakob OVER HAULER HELPER.[employer] Work Phone: [facility] 06-11-2012 tetanus toxoid, reduced diphtheria toxoid, and acellular pertussis vaccine, adsorbed Maddie Jakob OVER HAULER HELPER.[employer] Work Phone: [facility] 06-11-2012 zoster vaccine, live Kimberl ey Jakob OVER HAULER HELPER.[employer] Work Phone: [facility] 02-05-2011 influenza virus vaccine, unspecified formulation Maddie Jakob OVER HAULER HELPER.[employer] Work Phone: [facility] 01-26-2010 influenza virus vaccine, unspecified formulation Maddie Jakob OVER HAULER HELPER.[employer] Work Phone: [facility] Work Phone: 01-21-2009 influenza virus vaccine, unspecified formulation Maddie Jakob OVER HAULER HELPER.[employer] Work Phone: [facility] Work Phone: 02-21-2008 influenza virus vaccine, unspecified formulation Maddie Jakob OVER HAULER HELPER.[employer] Work Phone: [facility] Work Phone: 02-20-2007 influenza virus vaccine, unspecified formulation Maddie Jakob HALL Work Phone: [facility] 07-21-2003 tetanus and diphther ia toxoids, adsorbed, preservative free, for adult use (2 Lf of tetanus toxoid and 2 Lf of diphtheria toxoid) Maddie Jakob HALL Work Phone: [facility] Payers Date Payer Category Payer Self-pay [id number] 2017 Private Health Insurance AETNA S UPPLEMENT AETNA MEDICARE SUPPLEMENT [id number] 2017-Present [phone] [address] [address] [place] [address] Indemnity [id number] 2017 Private Health Insurance [facility] [id number] 2014 Unknown [id number] 2013 Medicare MEDICARE MEDICAR E A AND B [id number] 2013-Present [phone] [address] [address] [place] [address] Medicare [id number] 2013 Medicare [id number] Unknown [id number] Unknown [id number] Unknown [id number] Unknown [id number] [id number] Unknown [id number] [id number] Unknown [id number] [id number] Unknown [id number] [id number] Unknown [id number] [id number] Unknown [id number] [id number] Unknown [id number] Unknown [id number] [id number] Social History Date Type Detail Facility Start: 02-08-2022 End: 08-17-2023 Tobacco smoking status NCIS Unknown if ever smoked [facility] Start: 1950 Sex Assigned At Male [facility] Start: 07-20-2017 End: 12-03-2024 Tobacco smoking status NCIS Never smoked tobacco [facility] Start: 07-20-2017 Tobacco use and exposure Smokeless tobacco non-user [facility] Start: 02-16-2024 End: 02-23-2024 Alcoholic beverage intake Current non-drinker of alcohol (finding) [facility] Start: 02-16-2024 End: 02-19-2024 History of Social function [facility] Start: 02-16-2024 End: 02-19-2024 Tobacco use panel [facility] National Score (1-10 0), lower number is lower risk 75 [facility] Start: 1950 Sex assigned at Not [facility] file [facility] Start: 07-03-2024 Sex Male (finding) [facility] Medical Equipment Procedure Code Equipment Code Equipment Origin al Text Equipment Identifier Dates GLENOSPHERE FDA Start: 12-23-2024 HUMERAL STEM FDA Start: 12-23-2024 HUMERAL SYSTEM FDA Start: 09-08-2025 LATERALIZED BASEPLATE FDA Sta rt: 12-23-2024 SCREW FDA Start: 12-23-2024 SHORT POST FDA Start: 12-23-2024 Goals Date Patient Goal Desired Activity /State Functional Status Date Assessment Result Facility 12-24-2024 Functional status Ambulates [facility] Work Phone: Mental Status Date Assessment Result Facility 12-24-2024 Cognitive function Level Of Cons ciousness Awake;Alert;Appropriate;Follow s Commands [facility] Work Phone: 12-24-2024 Cognitive function Voice/Name [facility] Work Phone: 08-17-2023 Cognitive function Voice/Name [facility] Work Phone: Clinical Notes 08-17-2006 to 12-24-2024 Note Date & Type Note Facility 12-24-2024 Discharge summary Note Date/Time December 24, 2024 11:59am [facility] Medical Records Department [address] [place] [address] Discharge Summary 12/24/24 1018 MR#: [id number] Acct: [id number] Name: MARIA E GUTHRIE Rep #:[id number] : 1950 74 From: Oneyda WAGGONER PCP: Dr. Matt Saul MD Status :ADM BAR Location: [place] [address] Providers Date of Admission: 12/23/24 Date of [...] IMPRESSION: Right shoulder reverse arthroplasty. Reading Location: [place] [address] D/C Instructions Discharge Activity: May Shower Weight [...] Dr. Matt Saul MD; EDILSON Diaz~ Signed [facility] Work Phone: 1(854) 302-691809-09-2025 Discharge summary [facility] Medical Records Department [address] [place] [address] Discharge Summary 12/24/24 1018 MR#: [id number] Acct: [id number] Name: MARIA E GUTHRIE Rep #:[id number] : 1950 74 From: Oneyda WAGGONER PCP: Dr. Matt Saul MD Status :ADM BAR Location: [place] [address] Providers Date of Admission: 12/23/24 Date of [...] IMPRESSION: Right shoulder reverse arthroplasty. Reading Location: [place] [address] D/C Instructions Discharge Activity: May Shower Weight [...] Dr. Matt Saul MD; EDILSON Diaz~ Signed [facility]09-09-2025 Progress note Author Major Carrillo [facility] Note Date/Time December 24, 2024 9:42am [facility] Medical Records Department [address] [place] [address] Progress Note - Hospitalist 12/24/24913 MR#: [id number] Acct: [id number] Name: MARIA E GUTHRIE Rep #:[id number] : 1950 74 From: Major mathews MD PCP: Dr. Matt Saul MD Status :ADM BAR Location: [place] [address]-1 Subjective Subjective Doing well, pain is controlled [...] IMPRESSION: Right shoulder reverse arthroplasty. Reading Location: [place] [address] Physical Exam Narrative General: Alert, Oriented x3, [...] with questions Charges/Coding Visit Charges Inpatient E&M: 26190 Subs Hosp L2 12/24/24 0942 <Electronically signed by Major Carrillo MD> Cosigner Signature (if applicable): CC: ~ Signed ADDENDUM by Dr. Major Carrillo MD on 12/24/24 at 0942 Visit Charges Office Visits / Consults: 02547 OV L3 Est 20min 12/24/24 0942<Electronically signed by Major Carrillo MD> Cosigner Signature (if applicable): cc: ~* Signed [facility] Work Phone: 1(370) 227-419109-09-2025 [facility] Medical Records Department [address] [place] [address] Discharge Summary 12/24/24 1018 MR#: [id number] Acct: [id number] Name: MARIA E GUTHRIE Rep #: [id number] : 1950 74 From: Oneyda WAGGONER PCP: Dr. Matt Saul MD Status:ADM BAR Location: [address] Providers Date of Admission: 12/23/24 Date [...] 20 H, Creatinine 1.01 (more content not included)...[facility]09-09-2025 Progress note [facility] Medical Records Department [address] [place] [address] Progress Note - Hospitalist 12/24/24913 MR#: [id number] Acct: [id number] Name: MARIA E GUTHRIE Rep #:[id number] : 1950 74 From: Major mathews MD PCP: Dr. Matt Saul MD Status :ADM BAR Location: [place] [address] Subjective Subjective Doing well, pain is controlled [...] IMPRESSION: Right shoulder reverse arthroplasty. Reading Location: [place] [address] Physical Exam Narrative General: Alert, Oriented x3, [...] with questions Charges/Coding Visit Charges Inpatient E&M: 80523 Subs Hosp L2 12/24/24 0942 Cosigner Signature (if applicable): CC: ~ Signed ADDENDUM by Dr. Major Carrillo MD on 12/24/24 at 0942 Visit Charges Office Visits / Consults: [address] OV L3 Est 20min 12/24/24 0942 Cosigner Signature (if applicable): cc: ~* Signed [facility]09-08-2025 Consult note Author Hansel Sultana [facility] Note Date/Time December 23, 2024 8:16pm [facility] Medical Records Department [address] [place] [address] Consultation - Hospitalist 12/23/24 1608 MR#: [id number] Acct: [id number] Name: MARIA E GUTHRIE Rep #:[id number] : 1950 74 From: Hansel foreman DO PCP: Dr. Matt Saul MD Status :ADM BAR Location: [place] [address] Assessment & Plan Assessment/Plan (1) Right rotator cuff tear arthropathy: PLAN: Plan Patient is a 74-year-old male who presented to [facility] on 12/23/2024 for planned right shoulder procedure. [...] is a 74 M who presented to [facility] on 12/23/2024 for planned orthopedic procedure. Medicine [...] acute concerns at this time. [facility] Medical History Wears hearing aid Wears glasses Wears partial dentures History of steroid therapy Arthritis Dietary restriction Non-smoker History of echocardiogram History of stress test Cardiology follow-up encounter Diabetes Myocardial infarct Hypertension Osteoarthritis Gout Atherosclerosis of coronary artery of [place] heart without angina pectoris Hyperlipidemia Home Medications [...] Type Severity Reaction Status Date / Time Hstiwhh-AKN-EpQ Reductase AdvReac Mild myalgias Verified 12/23/24 10:26 Inhibitor (Mqcrxjn-Lnb-Bcn Reductase Inhibitor) Family History Brother CAD (coronary [...] IMPRESSION: Right shoulder reverse arthroplasty. Reading Location: [place] [address] Charges/Coding Visit Charges Inpatient E&M: 69465 Subs Hosp L2 12/23/242015 <Electronically signed by Hansel Sultana DO> Cosigner Signature (if applicable): CC: Dr. Matt Saul MD; Dr. Major Yi DO~ Signed [facility] Work Phone: 1(232) 180-333509-08-2025 Consult note [facility] Medical Records Department [address] [place] [address] Consultation - Hospitalist 12/23/24 1608 MR#: [id number] Acct: [id number] Name: MARIA E GUTHRIE Rep #:[id number] : 1950 74 From: Hansel foreman DO PCP: Dr. Matt Saul MD Status :ADM BAR Location: [place] [address] Assessment & Plan Assessment/Plan (1) Right rotator cuff tear arthropathy: PLAN: Plan Patient is a 74-year-old male who presented to [facility] on 12/23/2024 for planned right shoulder procedure. [...] is a 74 M who presented to [facility] on 12/23/2024 for planned orthopedic procedure. Medicine [...] acute concerns at this time. [facility] Medical History Wears hearing aid Wears glasses Wears partial dentures History of steroid therapy Arthritis Dietary restriction Non-smoker History of echocardiogram History of stress test Cardiology follow-up encounter Diabetes Myocardial infarct Hypertension Osteoarthritis Gout Atherosclerosis of coronary artery of [place] heart without angina pectoris Hyperlipidemia Home Medications [...] Type Severity Reaction Status Date / Time Sihldhi-WUV-FhS Reductase AdvReac Mild myalgias Verified 12/23/24 10:26 Inhibitor (Xyktchv-Zth-Kfx Reductase Inhibitor) Family History Brother CAD (coronary [...] IMPRESSION: Right shoulder reverse arthroplasty. Reading Location: [place] [address] Charges/Coding Visit Charges Inpatient E&M: 61795 Subs Hosp L2 12/23/242015 Cosigner Signature (if applicable): CC: Dr. Matt Saul MD; Dr. Major Yi, DO~ Signed [facility]09-08-2025 Consult note Author Osei Lubin [facility] Note Date/Time December 23, 2024 2:33pm [facility] Medical Records Department [address] [place] [address] Anesthesia Postop Eval II 12/23/24 1433 MR#: [id number] Acct: [id number] Name: MARIA E GUTHRIE Rep #:[id number] : 1950 74 From: Osei Choudhury PCP: Dr. Matt Saul MD Status :ADM BAR Y Race: C Location: [place] [address] Anesthesia Postop Eval I Sum Postop Eval Completion status Anesthesia document: Postop Eval 1 completed: Yes Anesthesia Postop Eval I Summary Anesthesia Postop Eval I Summary: Anesthesia Postop Eval I: Assessment Summary Airway patent Yes 12/23/24 13:32 [email or web address] Spontaneous unlabored Yes 12/23/24 13:32 [email or web address] respirations Mental status nausea No 12/23/24 13:32 [email or web address] Vomiting No 12/23/24 13:32 [email or web address] Anesthesia Postop Eval I: Fluid Summary Crystalloid volume administer 1,300 12/23/24 13:32 [email or web address] (ml) Colloids volume administered ( ml) Blood Product volume administered (ml) Total IV fluid infused 1,300 12/23/24 13:32 [email or web address] Anesthesia Postop Eval I: Summary Notes Anesthesia Complication No 12/23/24 13:32 [email or web address] Anesthesia Complication Comment: Post-operative progress note Anesthesia: Postop Eval II Evaluation Mental status: Awake and Calm Pain Level: 1 nausea: No Vomiting: No Complications Anesthesia Complication: No 12/23/24 1433 <Electronically signed by Osei Lubin MD> Date _ Osei Lubin MD Cosigner Signature: Date CC: ~ Signed [facility] Work Phone: 1(601) 843-650709-08-2025 Consult note Author Priscilla Willard [facility] Note Date/Time December 23, 2024 1:33pm [facility] Medical Records Department [address] [place] [address] Anesthesia Postop Eval I 12/23/24 1332 MR#: [id number] Acct: [id number] Name: MARIA E GUTHRIE Rep #:[id number] : 1950 74 From: Priscilla Willard CRNA PCP: Dr. Matt Saul MD Status :REG SDC Y Race: C Location: [place] [address] Anesthesia: Postop Eval I Current Vital Signs [...] Priscilla cruz CRNA> Date _ Priscilla Willard PURCHASER Cosigner Signature: Date CC: ~ Signed [facility] Work Phone: 1(299) 416-622109-08-2025 Evaluation note* Diagnosis Onset Date Resolution Status Admit Date Right rotator cuff tear arthropathy acute December 23 1:06pm Status post reverse total arthroplasty of right shoulder acute S epte2024 1:06pm [facility] Work Phone: 1(233) [phone] Evaluation note* Diagnosis Onset Date Resolution Status Admit Date Right rotator cuff tear arthropathy inactive Maureen 8th, 2 025 1:06pm Status post reverse total arthroplasty of right shoulder inactive December 23 1:06pm [facility] Work Phone: 1(734) 641-687509-08-2025 Consult note [facility] Medical Records Department [address] [place] [address] Anesthesia Postop Eval II 12/23/24 1433 MR#: [id number] Acct: [id number] Name: MARIA E GUTHRIE Rep #:[id number] : 1950 74 From: Osei Choudhury PCP: Dr. Matt Saul MD Status :ADM BAR Y Race: C Location: [address] Anesthesia Postop Eval I Sum Postop Eval Completion status Anesthesia document: Postop Eval 1 completed: Yes Anesthesia Postop Eval I Summary Anesthesia Postop Eval I Summary: Anesthesia Postop Eval I: Assessment Summary Airway patent Yes 12/23/24 13:32 [email or web address] Spontaneous unlabored Yes 12/23/24 13:32 [email or web address] respirations Mental status nausea No 12/23/24 13:32 [email or web address] Vomiting No 12/23/24 13:32 [email or web address] Anesthesia Postop Eval I: Fluid Summary Crystalloid volume administer 1,300 12/23/24 13:32 [email or web address] (ml) Colloids volume administered ( ml) Blood Product volume administered (ml) Total IV fluid infused 1,300 12/23/24 13:32 [email or web address] Anesthesia Postop Eval I: Summary Notes Anesthesia Complication No 12/23/24 13:32 [email or web address] Anesthesia Complication Comment: Post-operative progress note Anesthesia: Postop Eval II Evaluation Mental status: Awake and Calm Pain Level: 1 nausea: No Vomiting: No Complications Anesthesia Complication: No 12/23/24 1433 MD> Date _ Osei Lubin MD Cosigner Signature: Date CC: ~ Signed [facility]09-08-2025 Radiology Diagnostic study note [facility] Imaging Services [address] [place] [address] Shoulder min 2 Views MR#: [id number] Acct: [id number] Name: MARIA E GUTHRIE Rep #: [id number] : 1950 M 74 From: Zhou Suárez MD PCP: Dr. Matt Saul MD Status: REG [facility] Study:Shoulder min 2 Views Date of Exam: 12/23/24 Exam# [id number] Ordering Dr: Major Yi DO PROCEDURE: SHOULDER [...] IMPRESSION: Right shoulder reverse arthroplasty. Reading Location: [place] [address] CC: Dr. Matt Saul MD; Dr. Major Yi DO ~ Contract Accountant: Signed [facility]09-08-2025 Consult note [facility] Medical Records Department [address] [place] [address] Anesthesia Postop Eval I 12/23/24 1332 MR#: [id number] Acct: [id number] Name: MARIA E GUTHRIE Rep #:[id number] : 1950 74 From: Priscilla Willard CRNA PCP: Dr. Matt Saul MD Status :[facility] Y Race: C Location: [place] [address] Anesthesia: Postop Eval I Current Vital Signs Temperature: 97 F Pulse Rate: 89 Blood Pressure: 145/87 Respiratory Rate: 18 Pulse Ox: 93 Assessment Airway patent: Yes Spontaneous unlabored respirations: Yes nausea: No Vomiting: No Anesthesia Complication: No Fluid Hydration Crystalloid volume administer (ml): 1,300 Total IV fluid infused: 1,300 Progress Note Anesthesia document: Postop Eval 1 completed: Yes 12/23/24 1333 a PURCHASER> Date _ Priscilla Willard PURCHASER Cosigner Signature: Date CC: ~ Signed [facility]09-08-2025 Procedure note [facility] Medical Records Department [address] [facility] [place] [address] Operative Report 12/23/24 1322 MR#: [id number] Acct: [id number] Name: MARIA E GUTHRIE Rep #:[id number] : 1950 74 From: Major lake DO PCP: Dr. Matt Saul MD Status :[facility] Location: [place] [address] Operative Report (Standard) Operative Information Date of Procedure: 12/23/24 Pre-Operative Diagnosis: Right shoulder rotator cuff tear arthropathy Post-Operative Diagnosis: Right shoulder rotator cuff tear arthropathy Surgery/Procedure Performed: Right reverse total shoulder arthroplasty store receiving specialist: Yes Brain Wave Technician: Oneyda Solano Tasks completed by mate first: Opening & closing, Implanting device, Hemostasis: [...] No Description of surgery: Patient arrived to [facility] morning of the procedure and was greeted [...] in the beachchair position. A well-padded head sawyer was applied. The nonoperative extremity was placed [...] appropriate depth with good press-fit purchase. A Boswell was used to confirm depth. Cortical screws [...] operative suite. He was transferred to the [place] and subsequently to PACU in stable condition. Need for skilled registered dental assistant rda: Oneyda Solano PA-C was critical to the outcome of thecase. During the course of the procedure the physician registered dental assistant rda played a vitalrole. Her intimate knowledge of [...] Saul MD; Dr. Major Yi, DO~ Signed [facility]09-08-2025 Consult note Author Osei Lubin [facility] Note Date/Time December 23, 2024 10:57am [facility] Medical Records Department [address] [place] [address] Pre-Anesthesia Evaluation 12/23/24 1052 MR#: [id number] Acct: [id number] Name: MARIA E GUTHRIE Rep #:[id number] : 1950 74 From: Osei Choudhury PCP: Dr. Matt Saul MD Status :REG [facility] Y Race: C Location: [place] [address] ASA Classification* ASA Classification ASA Classification: 2 [...] SHOULDER ARTHROPLASTY Anesthesia History Anesthesia History - childcare center administrator: Anesthesia History - childcare center administrator Hx Hospitalization No 12/03/24 10:59 Any Problems [...] take am of surgery PONV PONV - childcare center administrator: PONV - childcare center administrator Female No 12/03/24 10:59 HX of Motion [...] 12/23/24 10:31 Respiratory Assessment Respiratory Assessment - childcare center administrator: Respiratory Tract Infection Hx - childcare center administrator Hx Respiratory Tract Infection No 12/03/24 10:59 STOP Sleep Apnea STOP Sleep Apnea - childcare center administrator: STOP Sleep Apnea - childcare center administrator Hx Hypertension Yes: CONTROLLED WITH MED 12/03/24 [...] Tobacco Use History Tobacco Use History - childcare center administrator: Tobacco Use History - childcare center administrator Tobacco Use Smoking Status Never smoker 12/03/24 10:59 Hx Tobacco Use No 12/03/24 10:59 Years Smoking Packs Smoked per Day Smoking Cessation Date was within the last 15 years Hx Smoking Cessation Date Hx Smoking Cessation Counseling Hematologic Medial History Hematologic Hx - childcare center administrator: 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 Hx of Blood Transfusion No 12/03/24 10:59 [...] confused, unrespo /Reproduction History /Reproductive History - childcare center administrator: /Reproductive Hx- childcare center administrator Hx Now No 12/03/24 10:59 Gestational Age [...] Osteoarthritis Gout Atherosclerosis of coronary artery of [place] heart without angina pectoris Hyperlipidemia Home Medications [...] Type Severity Reaction Status Date / Time Nloimvl-MBN-CuR Reductase AdvReac Mild myalgias Verified 12/23/24 10:26 Inhibitor (Ojskfsd-Jrb-Tqe Reductase Inhibitor) Family History Brother CAD (coronary [...] MD Cosigner Signature: Date CC: ~ Signed [facility] Work Phone: 1(279) 124-868609-08-2025 Consult note [facility] Medical Records Department [address] [place] [address] Pre-Anesthesia Evaluation 12/23/24 1052 MR#: [id number] Acct: [id number] Name: MARIA E GUTHRIE Rep #:[id number] : 1950 74 From: Osei Choudhury PCP: Dr. Matt Saul MD Status :REG SDC Y Race: C Location: [place] [address] ASA Classification* ASA Classification ASA Classification: 2 [...] SHOULDER ARTHROPLASTY Anesthesia History Anesthesia History - childcare center administrator: Anesthesia History - childcare center administrator Hx Hospitalization No 12/03/24 10:59 Any Problems [...] take am of surgery PONV PONV - childcare center administrator: PONV - childcare center administrator Female No 12/03/24 10:59 HX of Motion [...] 12/23/24 10:31 Respiratory Assessment Respiratory Assessment - childcare center administrator: Respiratory Tract Infection Hx - childcare center administrator Hx Respiratory Tract Infection No 12/03/24 10:59 STOP Sleep Apnea STOP Sleep Apnea - childcare center administrator: STOP Sleep Apnea - childcare center administrator Hx Hypertension Yes: CONTROLLED WITH MED 12/03/24 [...] Tobacco Use History Tobacco Use History - childcare center administrator: Tobacco Use History - childcare center administrator Tobacco Use Smoking Status Never smoker 12/03/24 10:59 Hx Tobacco Use No 12/03/24 10:59 Years Smoking Packs Smoked per Day Smoking Cessation Date was within the last 15 years Hx Smoking Cessation Date Hx Smoking Cessation Counseling Hematologic Medial History Hematologic Hx - childcare center administrator: 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 12/23/24 1057 MD> Date _ Oesi Lubin MD Cosigner Signature: Date CC: ~ Signed [facility]08-14-2025 Radiology Diagnostic study note [facility] Imaging Services [address] [place] [address] Extremity Upper without Contra MR#: [id number] Acct: [id number] Name: MARIA E GUTHRIE Rep #: [id number] : 1950 M 74 From: Sean Garcia MD PCP: Dr. Matt Sual MD Status: REG CLI Study:Extremity Upper without Contra Date of Exam: 11/26/24 Exam# [id number] Ordering Dr: Major Yi DO PROCEDURE: EXTREMITY [...] osteophytes. Reading Location: [facility] CC: Dr. Matt aSul MD; Dr. Major Yi DO ~ Contract Accountant: Signed [facility]03-04-2025 Radiology Diagnostic study note [facility] Imaging Services [address] [place] [id number] Ankle min 3 Views MR#: [id number] Acct: [id number] Name: MARIA E GUTHRIE Rep #: [id number] : 1950 M 74 From: Shannon Joshua MD PCP: Dr. Matt Saul MD Status: REG CLI Study:Ankle min 3 Views Date of Exam: Exam# [id number] Ordering Dr: Luna Saul MD EXAM: XR [...] evaluation with CT is recommended. Reading [facility] CC: Dr. Matt Saul MD ~ Contract Accountant: Signed [facility]03-04-2025 Radiology Diagnostic study note [facility] Imaging Services [address] [place], [place] [address] Foot min 3 Views MR#: [id number] Acct: [id number] Name: MARIA E GUTHRIE Rep #: [id number] : 1950 M 74 From: Laurent Alva MD PCP: Dr. Matt Saul MD Status: REG CLI Study:Foot min 3 Views Date of Exam: 08/09 Exam# [id number] Ordering Dr: Luna Saul MD PROCEDURE: FOOT [...] suggestive of gout. Calcaneal spurs. Reading Location: [facility] CC: Dr. Matt Saul MD ~ Contract Accountant: Signed [facility]12-19-2024 Evaluation note* Diagnosis Onset Date Resolution Status Admit Date Essential hypertension chronic De cember 2023 2:13pm History of coronary artery stent placement August 17, 2006 chronic April 04, 2 024 2:13pm Hyperlipidemia chronic March 172023 2:13pm [facility] Work Phone: 1(353) 394-769011-11-2024 History of Present illness Narrative* Maddie Bernstein APRN.GOODS L[employer]ER - 02/26/2024 1:00 PM EST FOLLOW UP VISIT - ENDOSCOPY Maria E Guthrie 1950 [id number] REFERRING PHYSICIAN: Matt Saul (Rashida) [address] [facility] [address] Maria E Guthrie is a patient I [...] as needed for worsening/no improvement. Maddie Bernstein APRN.GOODS [employer]ER [facility]-2024 NoteHNO ID: [id number] Author: MADDIE BERNSTEIN APRN.[employer] Service: ? Author Type: Nurse Practitioner Type: Progress Notes Filed: 02/26/2024 13:03 Note Text: FOLLOW UP VISIT - ENDOSCOPY Maria E Guthrie 1950 [id number] REFERRING PHYSICIAN: Matt Saul (Rashida) [address] [place] [address] Maria E Guthrie is a patient I [...] as needed for worsening/no improvement. Maddie Bernstein APRN.[facility]11-04-2024 Note* Discharge Instr - Nursing - Estelle Bird RN - 02/19/2024 12:17 PM EST The patient received a copy of Colonoscopy discharge instructions that contain information for how to contact the physician who performed the procedure and when to seek medical care. [facility]11-04-2024 Miscellaneous Notes* Discharge Instr - Nursing - Estelle Bird RN - 02/19/2024 12:17 PM EST The patient received a copy of Colonoscopy discharge instructions that contain information for how to contact the physician who performed the procedure and when to seek medical care. documented in this encounter[facility]11-04-2024 NoteHNO ID: [id number] Author: ESTELLE BIRD RN Service: ? Author Type: Registered Nurse Type: Nursing Progress Note Filed: 02/19/2024 12:15 Note Text: Abdomen soft non-distended. Will continue to monitor.[facility] 02-19-2024 Nurse Note* Estelle Bird RN - 02/19/2024 12:00 PM EST Abdomen soft non-distended. Will continue to monitor. [facility]11-04-2024 Nurse Note* Estelle Bird RN - 02/19/2024 12:00 PM EST Abdomen soft non-distended. Will continue to monitor. documented in this [facility]11-04-2024 History and physical note * [...] colonoscopy 06/[address] Park at [facility]. Sedation:Midazolam 5 mg IV, Fentanyl 100 [...] (FLONASE) 50 mcg/actuation nasal spray Use 1 [place] in the nose once daily. cyanocobalamin (VITAMIN [...] edited and updated as necessary. Maddie Bernstein APRN.[employer] UPDATED HISTORY AND PHYSICAL EXAMINATION SERVICE DATE: 02/19/2024 SERVICE TIME: 10:53 AM SENSITIVE EXAMINATION CONSENT: The sensitive examination was discussed with the Patient or Patient's Authorized Quality Assurance Supervisor Final. Asapplicable, any other physician, advance practice provider, medical student, or other health professional student that will be observing or involved in the sensitive examination for educational or training purposes was discussed with the Patient or Authorized Quality Assurance Supervisor Final. The Patient or Authorized Quality Assurance Supervisor Final has agreed to proceed with the sensitive [...] DATE: February 19, 2024 TIME: 10:53 AM [facility]11-04-[facility] History and physical note* Demetri [...] colonoscopy 06/[address] Park at [facility]. Sedation:Midazolam 5 mg IV, Fentanyl 100 [...] (FLONASE) 50 mcg/actuation nasal spray Use 1 [place] in the nose once daily. cyanocobalamin (VITAMIN [...] discussed with the Patient or Patient's Authorized Quality Assurance Supervisor Final. Asapplicable, any other physician, advance practice provider, medical student, or other health professional student that will be observing or involved in the sensitive examination for educational or training purposes was discussed with the Patient or Authorized Quality Assurance Supervisor Final. The Patient or Authorized Quality Assurance Supervisor Final has agreed to proceed with the sensitive [...] 2024 TIME: 10:53 AM documented in this encounter[facility]11-01-2024 Telephone encounter Note * Telephone Encounter - Melanie Marcelino - 02/16/2024 2:34 PM EDT 02-19-2024 Colonoscopy concepción [facility] Joyytejolly prep, nurse went over instructions yudy has direct number to contact for any questions or concerns., Instructed patient to arrive at 1045 in ASC [facility]11-01-2024 Miscellaneous Notes* Telephone Encounter - Melanie Marcelino - 02/16/2024 2:34 PM EDT 02-19-2024 Colonoscopy concepción ASC Joyytejolly prep, nurse went over instructions yudy has direct number to contact for any questions or concerns., Instructed patient to arrive at 1045 in ASC documented in this encounter[facility]11-01-2024 Nurse Note* Francisca Spann, RN [...] N/A Last Colonoscopy: 07/10/2020 Francisca Spann RN [facility]11-01-2024 History of Present illness Narrative* Maddie Bernstein APRN.GOODS LAYER - 02/16/2024 2:00 PM EDT HISTORY AND [...] colonoscopy 06/[address] Park at [facility]. Sedation:Midazolam 5 mg IV, Fentanyl 100 [...] (FLONASE) 50 mcg/actuation nasal spray Use 1 [place] in the nose once daily. cyanocobalamin (VITAMIN [...] necessary. Maddie Bernstein APRN.BALJIT documented in this encounterSouthern [facility]11-01-2024 NoteHNO ID: [id number] Author: MADDIE BERNSTEIN APRN.CNP Service: ? Author [...] colonoscopy 06/[address] Park at [facility]. Sedation:Midazolam 5 mg IV, Fentanyl 100 [...] (FLONASE) 50 mcg/actuation nasal spray Use 1 [place] in the nose once daily. cyanocobalamin (VITAMIN [...] denies ulcers, denies vomiting, (more content not included)...[facility]11-01-2024 Nurse Note* Francisca Spann RN - [...] 07/10/2020 Francisca Spann RN documented in this encounter[facility]05-02-2024 Discharge summary Author Joe Joshua [facility] August 18, 2023 12:45am Note Date/Time August 17, 2023 9:52pm [facility] Medical Records Department [address] [address] Emergency Department Summary 08/17/23 MR#: [id number] Acct: [id number] Name: MARIA E GUTHRIE Rep #:[id number] : 1950 73 From: Joe Sage PCP: Dr. Matt Saul MD Status :REG ER Location: ED HPI History of Present Illness Chief Complaint: Chest Pain Informant: patient Narrative Narrative: Intermittent chest pain initially started overnight twinges in his left chest. This evening it returned having intermittent symptoms. He had 1 stent placed hs2595. Diabetes hypertension hyperlipidemia. No cardiac dysrhythmia history. On baby aspirin. No cough. He had traveled yesterday 8-hour drive and return. Noticed leg swelling no leg cramping no dyspnea. Prior Similar Symptoms: No CVD Risk Factors: Positive for Hypertension, Diabetes and Hypercholesterolemia PE Risk Factors: Positive for Recent [facility] Medical History (Updated 08/18/23 @ 00:[address] Joe Joshua DO) Atherosclerosis of coronary artery of [place] heart without angina pectoris Chest pain Coronary [...] DAILY 02/08/22 [History Last Taken Unknown] omega 5-vqe-uiz-fish oil 300 mg-1,000 mg capsule (Fish Oil) 2 cap PO BID 02/08/22 [History Last Taken Unknown] allopurinol 300 mg tablet 300 mg PO DAILY 02/08/23 [History Last Taken Unknown] hydrochlorothiazide 25 mg tablet 25 mg PO DAILY 02/08/23 [History Last Taken Unknown] Allergy/AdvReac Type Severity Reaction Status Date / Time Jbmglnh-QQF-XdA Reductase AdvReac Mild myalgias Verified 08/17/23 21:04 Inhibitor [Czpdgud-Khw-Ylb Reductase Inhibitor] Family History Brother CAD (coronary [...] it in the room however on the digital solutions architect did not know any rhythm changes. Cardiac [...] clinician: N/A This note was generated with Ukash dictation software. It may contain incorrectwords, spelling, [...] 38.9 L Lymph % (Auto) 49.8 H Tom Green % (Auto) 10.1 H Eos % (Auto) [...] mg tablet 100 mg PO DAILY omega 4-vbn-ten-fish oil [Fish Oil] 300-1,000 mg capsule 2 [...] muscle); rotate sites Pt gets from the [place] Primary Care Provider: Matt Saul Referrals: Matt [...] your Primary Care Provider. Call [facility] ([phone]) or report to the closest Emergency Room. Call 911 if necessary. 08/18/23 0045 <Electronically signed by Joe Sage> Cosigner Signature (if applicable): CC: Dr. Matt Saul MD ~ Signed [facility] Work Phone: [phone]) [phone] Evaluation note* Diagnosis Onset Date Resolution Status Essential hypertension chron ic History of coronary artery stent placement August 17 chronic Hyperlipidemia chronic [facility] Work Phone: Evaluation note* Diagnosis Onset Date Resolution Status Influenza due to influenza virus, type A, human acute [facility] Work Phone: Evaluation note* Diagnosis History of colonic polyps- Primary Personal history of colonic polyps Screen for colon cancer Special screening for malignant neoplasms, colon documented in this encounter [facility]* Diagnosis History of colonic polyps Personal history of colonic polyps Screen for colon cancer Special screening for malignant neoplasms, colon documented in this encounter [facility]* Diagnosis History of colonic polyps- Primary Personal history of colonic polyps documented in this encounter [facility] noteNo assessment information availableWooOhioHealth [facility] Work Phone: Hospital Discharge instructions Additional Instructions Cardiac workup was negative. Potassium 3.1 orally replaced. Follow-up with your doctor. If symptoms recur and worsens, return to the ED for reevaluation.[facility] Work Phone: Hospital Discharge instructionsAdditional Instructions Date of Discharge: 12/24/24W[facility] Work Phone: Reason for referral (narrative)* Outpatient Procedure (Routine) - Authorized Specialty Diagnoses / Procedures Referred By Shauna ross Referred To Contact [facility] [place] Diagnoses History of colonic polyps Screen for colon cancer Procedures COLONOSCOPY SCREENING COLONOSCOPY FLX DX W/COLLJ SPEC WHEN Maddie Lozada APRN.CNP [address] [place] [address] [facility] Disease [address] [address] Referral ID Status Reason Start Date Expiration Date Visits Requested Visits Authorized [id number] Authorized Auto-Generat ed Referral 02/16/2024 02/15/2025 1 1 [facility] for referral (narrative)* Outpatient Procedure (Routine) - Closed Specialty Diagnoses / Procedures Referred By Shauna ross Referred To Contact [facility] DISEASE [place] Diagnoses History of colonic polyps Screen for colon cancer Procedures COLONOSCOPY SCREENING COLONOSCOPY FLX DX W/COLLJ SPEC WHEN Maddie Lozada APRN.CNP [address] [address] [facility] Disease [place] [id number] Referral ID Status Reason Start Date Expiration Date V isits Requested Visits Authorized [id number] Closed Auto-Generate d Referral 02/16/2024 02/15/2025 1 1 [facility] for referral (narrative)No reason for referral information availableWOhioHealth [facility] Hospital Work Phone: Reason for visit Narrative* Outpatient Procedure (Routine) - Closed Specialty Diagnoses / Procedures Referred By Shauna ross Referred To Contact [facility] Diagnoses History of colonic polyps Screen for colon cancer Procedures COLONOSCOPY SCREENING COLONOSCOPY FLX DX W/COLLJ SPEC WHEN Maddie Lozada, JENNIFER.GOODS LAYER [address] [place] [address] [facility] [place] [address] Referral ID Status Reason Start Date Expiration Date V isits Requested Visits Authorized [id number] Closed Auto-Generate d Referral 02/16/2024 02/15/2025 1 1 [facility] Chief Complaint and Reason for [...] Yes December 29, 2014 1:26pm Power of Vascular Tech Yes December 1:26pm Advance Directive Response Recorded Date/ Time Name of Medical Power of Vascular Tech darby feliciano n August 17, 2023 9:53pm Living Will Yes August 17, 2023 9: 53pm Power of Vascular Tech Yes August 17, 2023 9:53pm Advance Directive Response Recorded Date/ Time Living Will Yes December 29, 2014 2:26pm Power of Vascular Tech Yes December 2:26pm Advance Directive Response Recorded Date/ Time Do you have a Healthcare Power of Vascular Tech? Yes December 23, 2024 2:44pm Summary Purpose [...] Primary Care Provider Activ e Bill Murdock COUNSELLORS, COUNSELLORS-C Attending Provider Active Team Status: Active Member Role Status Dates Dr. Armond Saul MD Primary Care Provider Activ e Self Referred Attending Provider Active Team Status: Inactive Member Role Status Dates Dr. Armond Saul MD Primary Care Provider Activ e Bill Murdock COUNSELLORS, COUNSELLORS-C Attending Provider Active Team Status: Inactive Member Role Status Dates Dr. Armond Saul MD Primary Care Provider, Refe rring Provider Active Xiomara Renee COUNSELLORS, COUNSELLORS-C Attending Provider Active Team Status: Active Member [...] Dr. Joe Joshua DO Emergency Provider Active Activity Specialist Relationship Specialty Start Date End Date Matt Saul MD [address] [place], [place] [address] PCP - General Family Medicine 06/30/20 Activity Specialist Relationship Specialty Start Date End Date Matt Saul MD [address] [place], [place] [address] PCP - General Family Medicine 06/30/20 Activity Specialist Relationship Specialty Start Date End Date Matt Saul MD [address] [place], [place] [address] PCP - General Family Medicine 06/30/20 Activity Specialist Relationship Specialty Start Date End Date Matt Saul MD [address] [place], [place] [id number] PCP - General Family Medicine 06/30/20 Team [...] or prosecute any alcohol or drug abuse patient.[facility] CenterIn the event this information is protected by the Federal Confidentiality of Alcohol and Drug Abuse Patient Records regulations: The Federal rules restrict any use of the information to criminally investigate or prosecute any alcohol or drug abuse patient.[facility] CenterIn the event this information is protected by the Federal Confidentiality of Alcohol and Drug Abuse Patient Records regulations: The Federal rules restrict any use of the information to criminally investigate or prosecute any alcohol or drug abuse patient.[facility] CenterIn the event this information is protected by the Federal Confidentiality of Alcohol and Drug Abuse Patient Records regulations: The Federal rules restrict any use of the information to criminally investigate or prosecute any alcohol or drug abuse patient.[facility] Reason for Visit (unrecogniz ed section and content) Reason Comments Consult colonoscopy Reason Comments Follow Up Review colonoscopy r esults. Reason Comments 02-19-2024 Colonscoopy (unrecognized sect ion and content) No Status Records FoundNo Status Records Found INFORMATION SOURCE (unrecogn ized section and content) DATE CREATED AUTHOR 03/19/2024 [facility] DATE CREATED AUTHOR AUTHOR'S ORGANIZ ATION 02/28/2025 [facility] FOR RECORDS PERTAINING TO PATIENTS [...] BE BASED ON THE PRIMARY CLINICAL RECORDS. [employer] provides no warranty or guarantee of the accuracy or completeness of information in this document.
[2025-04-16 13:00] VITALS: BP 114/79; PULSE 71; RESP 18; TEMP 36.6; O2SAT 97; BMI 26.4
[2025-04-16] MEDS: Ceftriaxone 2 GM in 0.9% Normal Saline (50mL MB+) 50 ML IV (13:15)
[2025-04-16 14:03] VITALS: BP 128/63; PULSE 61; RESP 16; TEMP 35.9
== END 2025-04-16 23:59 | disposition home or self-care (01) ==
LOC: MEDOUTP 12:19
PROVIDERS: PCP Family Medicine; Referring Provider Internal Medicine Infectious Disease; Visit Provider Internal Medicine Infectious Disease
DX: T84.59XA Infection and inflammatory reaction due to other internal joint prosthesis, initial encounter (principal)
CPT/HCPCS: 96365; A4216; J0696